=== PATIENT | female | born 1945 | race Caucasian/White ===

== ENCOUNTER 2019-12-31 01:26 | Outpatient (CLI) | payer MEDICARE, OTHER, SELFPAY ==
[2019-12-31 17:41] LABS: SARS-CoV-2 RNA PCR Negative
== END 2019-12-31 01:27 | disposition home or self-care (01) ==
LOC: ANHCOVIDDT 01:26
PROVIDERS: PCP Family Medicine; Visit Provider Internal Medicine Gastroenterology
DX: Z01.812 Encounter for preprocedural laboratory examination (principal); Z20.828 Contact with and (suspected) exposure to other viral communicable diseases
CPT/HCPCS: 87635; C9803; U0003

== ENCOUNTER 2020-01-02 02:12 | Day surgery (SDC) | payer MEDICARE, OTHER, SELFPAY ==
[2019-12-26 10:45] VITALS: BMI 34.2
[2020-01-02 09:12] VITALS: BP 144/75; PULSE 74; RESP 20; TEMP 36.2; O2SAT 97; BMI 35.1
--- NOTE | 2020-01-02 09:21 | WPDANESEPPF ---
Anes - Initial Pre Proc Eval Procedure: Operation Date: 01/02/20 09:30 Proposed Procedures p Screening Colonoscopy - Guerrreo Mcintosh MD Date/Time: 01/02/20 09:21 Surgeon: Guerrero Mcintosh MD Pre Op Diagnosis: Fam Hx Colon Ca Patient Data Age: 74 Gender: F Height: 5 ft 2 in Weight: 87.1 kg Last Vital Signs Temp 97.2 F L 01/02/20 09:12 Pulse 74 01/02/20 09:12 Resp 20 01/02/20 09:12 BP 144/75 H 01/02/20 09:12 Pulse Ox 97 01/02/20 09:12 Allergies Allergy/AdvReac Type Severity Reaction Status Date / Time No Known Allergies Allergy Verified 12/26/19 10:42 Home Medications Medication Instructions Recorded Confirmed Type alprazolam 0.5 mg PO DAILY PRN 12/26/19 12/26/19 History diltiazem HCl [Cartia XT] 240 mg PO DAILY 12/26/19 12/26/19 History gabapentin 200 mg PO DAILY 12/26/19 12/26/19 History hydrocodone-acetaminophen 1 tablet PO PRN 12/26/19 History triamterene-hydrochlorothiazid 1 cap PO DAILY 12/26/19 12/26/19 History Patient hx anesthesia problems: none Family hx anesthesia problems: none PMFSH Past Medical History Medical History (Updated 01/02/20 @ 09:20 by Justin Coleman MD) Anxiety Hypertension Family History Family History (Updated 01/24/18 @ 08:51 by DOCTOR UNKNOWN) Father Family history of arthritis Carcinoma of colon Mother Family history of malignant neoplasm of bone Family history of malignant neoplasm of breast in first degree relative Other Family history of malignant neoplasm Social History Social History Smoking status: Never smoker Alcohol intake: current Living arrangements: with family Spiritual care concerns: No Anes - Eval Final PreProcedure Day of Procedure 01/02/20 09:21 Patient weight: obese Heart: regular rate and rhythm Lungs: clear to auscultation Airway: Mallampati scale class III Neurological: alert and oriented Last oral intake: >/= 8 hours ASA classification: III Emergent: no Anesthetic plan: proceed Anesthesia type and monitoring: general GIVS and standard monitoring Informed Consent: The patient's anesthetic plan and its attendant risks and benefits were discussed with the patient/family/POA. Questions were solicited and answers provided to the satisfaction of the patient/family/POA.
[2020-01-02] MEDS: LACTATED RINGERS 1,000 ML 150 ML IV CONT (09:27)
--- NOTE | 2020-01-02 09:59 | P.CONGI_ITS ---
Assessment and Plan Assessment and plan (1) Family history of colon cancer in father: Code(s): Z80.0 - Family history of malignant neoplasm of digestive organs Status: Acute Assessment and Plan: Patient has a family history of colon cancer in her father for this reason screening colonoscopy is recommended at 5 year intervals. High-fiber diet may help is a stool softener given her discomfort relieved with bowel movements. Consider probiotic agent be to assist with excess flatus. Gas-X is an alternative as well. GI Consult Note Consult date/time: 01/02/20 09:59 HPI: Saima Lau is a 74 year old female Seen in evaluation at the request of Dr. Marcus Patient presents for screening colonoscopy. Family history is significant patient's father had colon cancer. Patient's last colonoscopy was Five years ago. At that time she was noted to have a very tortuous colon. Idania ent currently complains of excess flatus. She complains of occasional anal pressure when sitting. She denies any blood in his stools. Her weight has remained stable. Her bowel habits are relatively normal. She occasionally Gets pain relieved Review of Systems Review of Systems: All systems reviewed & are unremarkable except as noted in HPI and below PMFSH Past Medical History Medical History Anxiety Hypertension Family History Family History (Updated 01/24/18 @ 08:51 by DOCTOR UNKNOWN) Father Family history of arthritis Carcinoma of colon Mother Family history of malignant neoplasm of bone Family history of malignant neoplasm of breast in first degree relative Other Family history of malignant neoplasm Social History Social History Smoking status: Never smoker Alcohol intake: current Living arrangements: with family Spiritual care concerns: No Meds Home Medications and Allergies Home Medications Medication Instructions Recorded Confirmed Type alprazolam 0.5 mg PO DAILY PRN 12/26/19 12/26/19 History diltiazem HCl [Cartia XT] 240 mg PO DAILY 12/26/19 12/26/19 History gabapentin 200 mg PO DAILY 12/26/19 12/26/19 History hydrocodone-acetaminophen 1 tablet PO PRN 12/26/19 History triamterene-hydrochlorothiazid 1 cap PO DAILY 12/26/19 12/26/19 History Allergies Allergy/AdvReac Type Severity Reaction Status Date / Time No Known Allergies Allergy Verified 12/26/19 10:42 Vital Signs Vital Signs - 24 hr 01/02/20 09:12 Temperature 97.2 F L Pulse Rate 74 Respiratory Rate 20 Blood Pressure 144/75 H Pulse Oximetry 97 Exam Narrative: Exam Narrative: Physical exam reveals patient to be alert. Vital signs stable. HEENT exam unremarkable. Lungs are clear to auscultation and percussion. Heart is without murmur or extra sounds. Abdominal exam bowel sounds are present soft nontender with no organomegaly. Digital external rectal exam is normal.
[2020-01-02 10:34] VITALS: BP 128/77; PULSE 97; RESP 21; O2SAT 98
--- NOTE | 2020-01-02 10:39 | ECG_ITS ---
Measurements Intervals [place] Rate: 66 P: [place]: 0 QRS: 0 QRSD: 105 T: 41 QT: 412 QTc: 433 Interpretive Statements ATRIAL FIBRILLATION BASELINE ARTIFACT- I, II, III, AVR, AVL, AVF, V1 ABNORMAL ECG Electronically Signed On 01-02-2020 12:02:41 CDT by Rajesh Austin D.O.
[2020-01-02 10:44] VITALS: BP 134/63; PULSE 81; RESP 18; O2SAT 98
--- NOTE | 2020-01-02 10:44 | SUR.PHASEII ---
NEW ONSET OF AFIB PER P[employer] [facility]. DR. DE LA ROSA AWARE AND 12LEAD ORDERED.
--- NOTE | 2020-01-02 10:52 | SUR.PHASEII ---
1053 -MARLA STEWART IN WITH PATIENT TO DO 12LEAD EKG.
[2020-01-02 10:54] VITALS: BP 130/64; PULSE 74; RESP 22; O2SAT 98
[2020-01-02 11:04] VITALS: BP 124/58; PULSE 68; RESP 20; O2SAT 98
--- NOTE | 2020-01-02 11:04 | SUR.PHASEII ---
1104 -CARDIOLOGY CALLED AND WILL COME VISIT WITH PATIENT
[2020-01-02 11:14] VITALS: BP 125/67; PULSE 66; RESP 18; O2SAT 98
--- NOTE | 2020-01-02 12:18 | SUR.PHASEII ---
1129 - [id number] -DR. HARRIS FROM CARDIOLOGY IN WITH PATIENT. PER DR. HARRIS NO NEW LAB NEEDED AT THIS TIME, PATIENT STATES THAT SHE HAD SOME DRAWN RECENTLY THROUGH PRIMARY, DR. CITLALI MEJIA.
--- NOTE | 2020-01-02 12:47 | PM.CNCAR ---
Assessment and Plan Assessment and plan (1) Atrial fibrillation: Code(s): I48.91 - Unspecified atrial fibrillation Status: Acute Assessment and Plan: reported remote history of transient atrial fibrillation associated with procedure/anesthesia. Patient reported to be in sinus rhythm at presentation developed atrial fibrillation with controlled ventricular response during colonoscopy. She remains in AFib, heart rate controlled, asymptomatic. We discussed embolic stroke risk with atrial fibrillation, CHADS2 Vasc score 3 (age, female sex, HTN) and recommendation for systemic anticoagulation. We discussed aspirin versus anticoagulation options including bleeding versus embolic stroke risk reduction. We discussed rate versus rhythm control. Patient is currently asymptomatic with controlled heart rate. Will evaluated outpatient with recommendations to follow. Discussed options including medications, electrical cardioversion she is to restore sinus rhythm. Patient comfortable continuing with current medications with Follow up as an outpatient. Continue diltiazem at present dose. Review most recent laboratory studies. Would recommend initiation of Xarelto 20 mg at bedtime depending on renal function. Will review labs. She is not to start anticoagulation for least 2 days post polypectomy or per GI recommendations. Monitor for bleeding. Counseled on symptoms she may experience including fatigue, decreased activity tolerance, shortness breath, palpitations, dizziness or lightheadedness. She does not endorse any of these at this time or in the recent past. Outpatient 2D echocardiogram. Discuss outpatient desk monitor depending upon management decisions and associated symptoms. All questions answered to her and her 's satisfaction. They both verbalized understanding and agreed with plan of care. Counseled on potential contribution from sleep apnea although she does not endorse clear symptoms. She admits to poor sleep, frequent awakenings but feels this may be related more to knee pain. She will monitor symptoms and will discuss further as an outpatient. Patient stable for discharge home to follow up in our office in the next 2 weeks. Further recommendation depending on patient's clinical course and response to therapy. (2) Hypertension: Code(s): I10 - Essential (primary) hypertension Status: Inactive Assessment and Plan: Controlled, no acute issues. Continue home medical therapy. History of Present Illness History of Present Illness Consult date/time: Date of service: 01/02/20 12:47 This is a cardiology consultation at the request of Dr. Coleman of Anesthesiology for our opinion regarding atrial fibrillation seen in the GI lab postprocedure room.. Requesting physician: Justin Coleman MD Consult reason: atrial fibrillation Reason For Visit: Fam Hx Colon Ca Narrative: Patient is a pleasant 74-year-old female with a history of hypertension, osteoarthritis, and reported history of paroxysmal atrial fibrillation remotely presents for routine outpatient colonoscopy. She denies bleeding or recent concerns. She denies history of coronary artery disease, myocardial infarction, CHF, stroke, bleeding complications, DVT and/or PE. She states she was told over 10 years ago after a surgical procedure she had an episode of atrial fibrillation which apparently self limited. No directed therapy was administered per her recollection and she never followed with a seismic survey assistant in this regard. He does states she had a false-positive stress test many years ago for which she had a left heart catheterization performed and reports no issues found. She has no prior known diagnosis of obstructive sleep apnea. She denies falls. Were called to see this patient as she reportedly presented in normal sinus rhythm then developed atrial fibrillation with controlled ventricular response during colonoscopy wh
== END 2020-01-02 12:20 | disposition home or self-care (01) ==
PROVIDERS: PCP Family Medicine; Visit Provider Internal Medicine Gastroenterology
PROC: 0DJD8ZZ Inspection of Lower Intestinal Tract, Via Natural or Artificial Opening Endoscopic (ICD-10-PCS; CPT 45378; principal; 2020-01-02 09:30)
DX: Z12.11 Encounter for screening for malignant neoplasm of colon (principal); D12.2 Benign neoplasm of ascending colon; D12.4 Benign neoplasm of descending colon; K57.30 Diverticulosis of large intestine without perforation or abscess without bleeding; K64.8 Other hemorrhoids; Z80.0 Family history of malignant neoplasm of digestive organs; I48.91 Unspecified atrial fibrillation; I10 Essential (primary) hypertension; F41.9 Anxiety disorder, unspecified; E66.9 Obesity, unspecified; Z68.35 Body mass index [BMI] 35.0-35.9, adult; S62.631B Displaced fracture of distal phalanx of left index finger, initial encounter for open fracture
CPT/HCPCS: 45385; 88305; 93005; J2704; J7120

== ENCOUNTER 2020-03-31 10:17 | Emergency (ER) | payer MEDICARE, OTHER, SELFPAY ==
--- NOTE | 2020-03-31 10:20 | ED.URI ---
HPI - URI/Sore Throat General Chief Complaint: Upper Respiratory Infection Stated Complaint: Cough Source: patient and RN notes reviewed Mode of arrival: ambulatory Limitations: no limitations History of Present Illness HPI Narrative: 74-year-old female presents with concern for continued cough after recovering from Covid. Reports in February 26 she was positive for Covid, reports she was sick for approximately 3 weeks with Covid symptoms such as body aches, cough, loss of sense of taste and smell, fever, nasal congestion. Reports she got a Z-Ruddy from her doctor, completed it 1 week ago, and symptoms persist. She denies fever reports occasional feeling of spasming when she coughs. Reports she has been taking [id number] cold remedies with occasional relief. MD elicited complaint: cough Related Data Home Medications Medication Instructions Recorded Confirmed alprazolam 0.5 mg PO DAILY PRN 12/26/19 12/26/19 diltiazem HCl [Cartia XT] 240 mg PO DAILY 12/26/19 12/26/19 gabapentin 200 mg PO DAILY 12/26/19 12/26/19 hydrocodone-acetaminophen 1 tablet PO PRN 12/26/19 triamterene-hydrochlorothiazid 1 cap PO DAILY 12/26/19 12/26/19 Allergies Allergy/AdvReac Type Severity Reaction Status Date / Time No Known Allergies Allergy Verified 12/26/19 10:42 Review of Systems Review of Systems: Narrative: CONSTITUTIONAL: Denies malaise, chills, sweats, or fever. EYES: Denies visual changes, redness, or discharge. ENT: Denies rhinorrhea, congestion, sinus pain, otalgia and sore throat. CARDIOVASCULAR: Denies chest pain, palpitations, or edema. RESPIRATORY: Reports cough, occasional mild dyspnea. GASTROINTESTINAL: Denies abdominal pain, nausea, vomiting, diarrhea SKIN: Denies rash or itching. MUSCULOSKELETAL: Denies myalgia. NEUROLOGIC: Denies headache. All systems reviewed & are unremarkable except as noted in HPI and below PMFSH Past Medical History Medical History (Updated 03/31/20 @ 10:49 by Marlys Will NP) Anxiety Hypertension Family History Family History Father Family history of arthritis Carcinoma of colon Mother Family history of malignant neoplasm of bone Family history of malignant neoplasm of breast in first degree relative Other Family history of malignant neoplasm Social History Social History Smoking status: Never smoker Alcohol intake: current Spiritual care concerns: No Comments At time of signature, agree with nursing past medical, surgical, social and family history. There is no relevant family history pertinent to the presenting complaint Exam Narrative: Exam Narrative: GENERAL: Well-appearing, well-nourished, and in no acute distress. HEAD: Normocephalic EYES: PERRLA, conjunctivae clear ENT: Nares clear, turbinates pink, no discharge. Mucous membranes moist. TM pearly redman with dull light reflex bilaterally; no tragal tenderness. Oropharynx not erythematous without lesions. Tonsils not enlarged and without exudate, no drooling, no hoarseness, no trismus, uvula midline. NECK: Supple. No lymphadenopathy CHEST: Clear to auscultation, breath sounds equal. No wheezing, rhonchi, rales, or stridor. No respiratory distress, speaks in full sentences. HEART: Regular rate and rhythm. No murmur heard. SKIN: Warm, dry, no rash. NEURO: Alert and oriented x3. PSYCH: Normal mood and affect Course Course Emergency Course: Patient is aware of diagnosis, understands and agrees to treatment plan. Anticipatory guidance given. Patient agrees to follow-up as directed and is aware of reasons to seek care at the emergency department. Portions of this record may have been created with voice recognition software Vital Signs Vital signs: Vital Signs Temperature 99.0 F 03/31/20 10:39 Pulse Rate 64 03/31/20 10:39 Respiratory Rate 16 03/31/20 10:39 Blood Pressure 143/80 H 03/31/20 1
[2020-03-31 10:39] VITALS: BP 143/80; PULSE 64; RESP 16; TEMP 37.2; O2SAT 98
[2020-03-31 10:40] VITALS: BP 143/80; PULSE 64; RESP 16; TEMP 37.2; O2SAT 98
== END 2020-03-31 10:53 | disposition home or self-care (01) ==
PROVIDERS: Emergency Provider Nurse Practitioner
DX: J40 Bronchitis, not specified as acute or chronic (principal); F41.9 Anxiety disorder, unspecified; I10 Essential (primary) hypertension; Z86.16 Personal history of COVID-19
CPT/HCPCS: 99213; G0463

== ENCOUNTER 2021-03-03 12:20 | Outpatient (CLI) | payer MEDICARE, OTHER, SELFPAY ==
--- NOTE | ~2021-03-03 | XR_ITS ---
XR chest 2V DATE: 03/03/2021 12:41 INDICATION: Acute lower respiratory infection. Cough. TECHNIQUE: 2 views COMPARISON: 02/01/2008 two-view chest FINDINGS: There is cardiomegaly. No hilar or mediastinal enlargement. There is chronic mild elevation of the right leaf of the diaphragm. No pulmonary infiltrate or consolidation, pleural effusion or pulmonary vascular congestion or pneumo thorax is detected. Surgical clips overlie the right upper quadrant, likely due to cholecystectomy. Gastric band device i s noted. Left glenohumeral joint replacement. There is mild to moderate dextroscoliosis and degenerative spurring of the thoracic and lumbar spine. Diffuse osteopenia. IMPRESSION: No active pulmonary disease Cardiomegaly Gastric band device Status post cholecystectomy Glenohumeral joint replacement Osteopenia DEXA scoliosis and degenerative spurring of the thoracic and lumbar spine Reviewed, dictated and finalized at location B. 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
== END 2021-03-03 12:21 | disposition home or self-care (01) ==
LOC: ANHIMG 12:26
PROVIDERS: PCP Family Medicine; Visit Provider Family Medicine
DX: J22 Unspecified acute lower respiratory infection (principal); I51.7 Cardiomegaly; Z98.84 Bariatric surgery status; Z90.49 Acquired absence of other specified parts of digestive tract; Z96.642 Presence of left artificial hip joint; M85.89 Other specified disorders of bone density and structure, multiple sites; M41.84 Other forms of scoliosis, thoracic region; M46.06 Spinal enthesopathy, lumbar region
CPT/HCPCS: 71046

== ENCOUNTER 2021-06-04 10:28 | Emergency (ER) | payer MEDICARE, SELFPAY ==
[2021-06-04] VITALS (8 sets, daily range): BP systolic 107–139; BP diastolic 56–89; PULSE 67–100; RESP 15–20; TEMP 36.6; O2SAT 98–100
[2021-06-04 11:12] LABS: Basophils Percent Auto 0.2 % (0.2-1.2); Eosinophils Percent Auto 0.2 % (0-4.4); Hematocrit 52.3 % (37.0-47.0); Immature Granulocyte Absolute 0.03 K/mm3 (0.00-0.031); Immature Granulocyte Percent A 0.3 % (0-0.5); Lymphocytes Absolute Auto 1.25 K/mm3 (0.9-3.2); Lymphocytes Percent Auto 13.4 % (18.3-44.2); Mean Corpuscular HGB Conc 34.4 g/dl (32-36); Mean Corpuscular Hemoglobin 32.9 pg (26-34); Mean Corpuscular Volume 95.6 fl (80-100); Mean Platelet Volume 9.5 fl (7.4-10.4); Monocytes Absolute Auto 0.9 K/mm3 (0.1-0.6); Monocytes Percent Auto 9.6 % (2.6-8.5); Neutrophils Absolute Auto 7.1 K/mm3 (1.3-6.7); Neutrophils Percent Auto 76.3 % (45.5-73.1); Platelet Count Result 235 k/mm3 (150-375); Red Blood Count 5.47 M/mm3 (4.2-5.4); Red Cell Distribution Width 13.9 % (11.5-14.5); White Blood Count 9.3 K/mm3 (4.5-10.0)
[2021-06-04 11:20] LABS: Alanine Aminotransferase 41 U/L (4-35); Albumin Level 4.7 g/dL (3.5-5.1); Alkaline Phosphatase 73 U/L (38-126); Anion Gap 16 mmol/L (8-16); Aspartate Amino Transferase 52 U/L (14-36); Bilirubin,Total 0.7 mg/dL (0.2-1.3); Blood Urea Nitrogen 24 mg/dL (7-17); Calcium 9.2 mg/dL (8.4-10.2); Carbon Dioxide 20 mmol/L (22-30); Chloride 100 mmol/L (98-107); Estimated CRCL calculation 29 ml/min; Estimated Glomerular Filt Rate 34; Glucose 131 mg/dL (65-110); Lipase 48 U/L (23-300); Potassium 3.2 mmol/L (3.4-5.0); Sodium 136 mmol/L (137-145)
--- NOTE | 2021-06-04 13:00 | ED.NAVMDI ---
HPI - Nausea/Vomiting/Diarrhea General Chief complaint: Nausea/Vomiting/Diarrhea Stated complaint: diarrhea for three days Time Seen by Provider: 06/04/21 11:30 Source: patient and family Mode of arrival: ambulatory Limitations: no limitations History of Present Illness HPI Narrative: 75-year-old with a history of hypertension, A. fib, arthritis, anxiety here with a complaint complaints of diarrhea for last few days. Patient states that she feels lightheaded and dizzy has occasional abdominal cramps. She states her stool is green and watery in nature. No history of fever or chills. She states that she was on 2 rounds of oral antibiotic for urinary tract infection. MD elicited complaint: diarrhea and abdominal pain Onset (ago): day(s) (3) Description of diarrhea: mucus, watery and other (Green in color) Associated nausea: No Location of pain: diffuse Pain consistency: intermittent Quality: cramping Exacerbating factors: bowel movement Relieving factors: none Context: recent antibiotic use Associated symptoms: denies other symptoms Related Data Home Medications Medication Instructions Recorded Confirmed diltiazem HCl [Cartia XT] 240 mg PO DAILY 12/26/19 05/11/21 gabapentin 400 mg capsule 400 mg PO BID cap 03/02/21 05/11/21 diltiazem HCl PO 06/04/21 ergocalciferol (vitamin D2) 06/04/21 gabapentin 06/04/21 triamterene-hydrochlorothiazid cap 06/04/21 valacyclovir 06/04/21 warfarin 06/04/21 Allergies Allergy/AdvReac Type Severity Reaction Status Date / Time No Known Allergies Allergy Verified 05/11/21 10:16 [facility] Past Medical History Medical History Anxiety Arthralgia Elevated TSH Fatigue Hypertension Knee pain, bilateral Low back pain Screening cholesterol level Surgical History Surgical History History of ankle surgery (~2017) left ankle - Dr. Aguillon - [facility] History of arthroscopic knee surgery (~2016) left knee - Dr. Guillaume - [facility] [place] History of arthroscopic knee surgery (~2009) right knee - Dr. Kapoor History of hysterectomy (~2002) [facility] History of shoulder replacement (~2009) left shoulder - Dr. Chelsea Coreas Family History Family History Father Family history of arthritis Carcinoma of colon Mother Family history of malignant neoplasm of bone Family history of malignant neoplasm of breast in first degree relative Other Family history of malignant neoplasm Social History Social History Second hand tobacco smoke exposure: No Alcohol intake: current Substance use: never Substance use type: does not use Gender identity (if verbalized by the patient): Female Sexual Orientation (if Verbalized by the Patient): Straight or Heterosexual Spiritual care concerns: No Exam Narrative: GENERAL: Well-appearing, well-nourished, and in no acute distress. HEAD: Normocephalic, atraumatic. EYES: PERRLA and EOMI. ENT: Nares clear dry oral mucosa. NECK: Supple. CHEST: Clear to auscultation. No respiratory distress. HEART: Regular rate and rhythm. No murmur heard. Normal peripheral pulses. ABDOMEN: Soft, nontender, nondistended, normal active bowel sounds. EXTREMITIES: Normal range of motion. No edema. SKIN: Warm, dry, no rash. NEURO: No focal deficits. Alert and oriented x3. PSYCH: Normal mood and affect. Course Course Emergency Course: Physical examination she had dry oral mucosa , I did give her 2 L of normal saline which started feeling better send her stool for C. difficile which was negative discussed the lab work with the patient and family. She feels much better. Will discharge home on Flagyl. Vital Signs Vital signs: Vital Signs Temperature 36.6 C 06/04/21 10:36 Pulse Rate 90 06/04/21 10:36 Respiratory Rate 18 0
[2021-06-04] MEDS: SODIUM CHLORIDE 0.9% IV 1,000 ML 999 ML IV CONT (13:05)
[2021-06-04] MEDS: SODIUM CHLORIDE 0.9% IV 1,000 ML 150 ML IV CONT (13:05)
[2021-06-04 16:09] LABS: Toxigenic C. Diff NEGATIVE (NEGATIVE)
== END 2021-06-04 16:53 | disposition home or self-care (01) ==
PROVIDERS: Emergency Provider Family Medicine; PCP Family Medicine
DX: K52.9 Noninfective gastroenteritis and colitis, unspecified (principal); E86.0 Dehydration; I10 Essential (primary) hypertension; I48.91 Unspecified atrial fibrillation; M19.90 Unspecified osteoarthritis, unspecified site; Z79.01 Long term (current) use of anticoagulants
CPT/HCPCS: 36415; 80053; 83690; 85025; 87045; 87427; 87493; 89055; 96360; 96361; 99283; 99284; J7030

== ENCOUNTER 2021-12-29 12:50 | Outpatient (CLI) | payer MEDICARE, SELFPAY ==
--- NOTE | ~2021-12-29 | XR_ITS ---
EXAMINATION: XR chest 2V DATE: 12/29/2021 13:17 INDICATION: Essential hypertension TECHNIQUE: PA and lateral views of the chest are obtained. COMPARISON: 03/03/2021 FINDINGS: The lungs are free of acute opacities. No pleural effusion or pneumothorax. The cardiomedia stinal silhouette is normal. There is mild thoracic spondylosis. There are changes of left total shou lder arthroplasty. Changes of gastric lap band surgery are also noted. IMPRESSION: 1. No acute cardiopulmonary abnormality. Reviewed, dictated and finalized at location A.
--- NOTE | 2021-12-29 13:25 | ECG_ITS ---
Measurements Intervals [place] Rate: 52 P: 30 [place]: 183 QRS: -10 QRSD: 102 T: 38 QT: 425 QTc: 397 Interpretive Statements SINUS BRADYCARDIA ABNORMAL ECG COMPARED TO ECG 01/02/2020 11:18:45 SINUS BRADYCARDIA NOW PRESENT Electronically Signed On 12-29-2021 14:14:25 CDT by Jagjit Pompa M.D.
== END 2021-12-29 12:51 | disposition home or self-care (01) ==
PROVIDERS: PCP Family Medicine; Visit Provider Family Medicine
DX: I48.0 Paroxysmal atrial fibrillation (principal); I10 Essential (primary) hypertension; R94.31 Abnormal electrocardiogram [ECG] [EKG]; R00.1 Bradycardia, unspecified
CPT/HCPCS: 71046; 93005

== ENCOUNTER 2023-03-21 07:56 | Outpatient (CLI) | payer MEDICARE, SELFPAY ==
--- NOTE | ~2023-03-21 | XR_ITS ---
EXAMINATION: XR UGI w barium swallow DATE: 03/21/2023 08:49 INDICATION: Dysphagia. TECHNIQUE: The patient drank thick barium, gas-producing crystals, and thin barium. Fluoroscopy of th e esophagus, stomach, and proximal small bowel was performed. Fluoroscopy exposure time was 0.7 minut es. The total number of images was 512. Total dose-area product was 2.386 Gy-cm^2. COMPARISON: None. FINDINGS: There is no mass or stricture of the esophagus. Esophageal motility is normal. There is no hiatal hernia. There was no gastroesophageal reflux with provocative maneuvers. There is a Lap band w ith Phi angle of 53 degrees. The stomach and proximal small bowel show normal folding patterns. IMPRESSION: 1. Normal upper gastrointestinal series. Lap band in expected position. Reviewed, dictated and finalized at location A. 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
== END 2023-03-21 07:57 | disposition home or self-care (01) ==
PROVIDERS: PCP Family Medicine; Visit Provider Family Medicine
DX: R13.10 Dysphagia, unspecified (principal); Z98.84 Bariatric surgery status
CPT/HCPCS: 74240

== ENCOUNTER 2023-04-12 00:22 | Day surgery (SDC) | payer MEDICARE, SELFPAY ==
[2023-04-04 10:00] VITALS: BMI 31.1
--- NOTE | 2023-04-08 12:47 | SUR.PREOP ---
Patient called regarding upcoming procedure. Reviewed preop instructions, appointment times, and procedure prep.
[2023-04-12 12:11] VITALS: BP 168/75; PULSE 60; RESP 16; TEMP 35.9; O2SAT 99
[2023-04-12] MEDS: LACTATED RINGERS 1,000 ML 150 ML IV CONT (12:20)
--- NOTE | 2023-04-12 12:41 | WPDANESEPPF ---
Anes - Initial Pre Proc Eval Procedure: Operation Date: 04/12/23 13:30 Proposed Procedures p Esophagogastroduodenoscopy - Garland Celis MD Date/Time: 04/12/23 12:41 Surgeon: Garland Celis MD Pre Op Diagnosis: Dysphagia,other chest pain,vomiting Patient Data Age: 77 Gender: F Height: 1.57 m Weight: 79.3 kg Last Vital Signs Temp 96.6 F L 04/12/23 12:11 Pulse 60 04/12/23 12:11 Resp 16 04/12/23 12:11 BP 168/75 H 04/12/23 12:11 Pulse Ox 99 04/12/23 12:11 O2 Del Method Room Air 04/12/23 12:11 Allergies Allergy/AdvReac Type Severity Reaction Status Date / Time No Known Allergies Allergy Verified 04/12/23 12:10 Home Medications Medication Instructions Recorded Confirmed Type diltiazem HCl 240 mg 240 mg PO DAILY 12/26/19 04/04/23 History capsule,extended release 24 hr (Cartia XT) buspirone 15 mg tablet 15 mg PO BID PRN anxiety #40 tabs 03/24/21 04/04/23 Rx triamterene 37.5 1 cap PO DAILY 06/04/21 04/04/23 History mg-hydrochlorothiazide 25 mg capsule gabapentin 400 mg capsule 400 mg PO TID 06/16/21 04/04/23 History apixaban 5 mg tablet (Eliquis) 5 mg PO BID #60 tabs 09/22/21 04/12/23 Rx oxybutynin chloride 10 mg 10 mg PO DAILY 01/25/22 04/04/23 History tablet,extended release 24 hr albuterol sulfate 90 mcg/actuation 2 puff inhalation QID PRN 02/01/23 04/04/23 Rx aerosol inhaler shortness of breath or wheezing #8.5 grams potassium chloride 10 mEq 10 meq PO .TWICE WEEKLY #30 caps 02/02/23 04/04/23 Rx capsule,extended release ergocalciferol (vitamin D2) 1,250 1,250 mcg PO WEEKLY #12 caps 02/09/23 04/04/23 Rx mcg (50,000 unit) capsule ibandronate 150 mg tablet 150 mg PO MONTHLY #1 tablet 02/10/23 04/04/23 Rx pantoprazole 40 mg tablet,delayed 40 mg PO BID #60 tabs 03/31/23 04/04/23 Rx release hyoscyamine sulfate 0.125 mg 0.125 mg sublingual Q6H PRN other 04/04/23 04/04/23 History sublingual tablet (Levsin/SL) valacyclovir 1 gram tablet 2,000 mg PO Q12H PRN other 04/04/23 04/04/23 History (Valtrex) Patient hx anesthesia problems: none Family hx anesthesia problems: none Results Review: All pre-operative results and documents have been reviewed as part of the pre-operative evaluation. [facility] Past Medical History Medical History (Updated 03/31/23 @ 12:54 by Norma Clarke, KAREY) Anxiety Arthralgia Atypical chest pain Chronic renal insufficiency, stage III (moderate) Chronic vomiting Elevated TSH Fatigue Hx of adenomatous colonic polyps Hypertension Knee pain, bilateral Low back pain Odynophagia Screening cholesterol level Vitamin D deficiency Vulvodynia Surgical History Surgical History History of ankle surgery (~2018) left ankle - Dr. Aguillon - [facility] History of arthroscopic knee surgery (~2016) left knee - Dr. Guillaume - [facility] History of arthroscopic knee surgery (~2009) right knee - Dr. Kapoor [place] of [place] [facility] [place] shoulder replacement (~2009) left shoulder - Dr. Chelsea Coreas Hx of laparoscopic gastric banding Family History Family History Father Family history of arthritis Carcinoma of colon Mother Family history of malignant neoplasm of bone Family history of malignant neoplasm of breast in first degree relative Other Family history of malignant neoplasm Social History Social History Smoking status: Never smoker Second hand tobacco smoke exposure: No Alcohol intake: current Alcohol use details: social Substance use: never Substance use type: does not use Lack of Transportation: No Lack of Food: Never True Current Housing: I Have Housing Concerned About Future Housing: No Difficulty Paying Gas/Electric Bills: No Difficulty Paying for Meds: No
--- NOTE | 2023-04-12 13:21 | WPDHPUPDATE1 ---
History and Physical Update Update Date/Time: 04/12/23 13:21 History and Physical has been reviewed, including an updated exam of the patient. There are NO changes in the patient's condition. Risks, benefits, and alternatives have been discussed and questions answered. Patient agrees to proceed with procedure.
[2023-04-12 13:39] VITALS: BP 134/91; PULSE 51; RESP 16; O2SAT 99
[2023-04-12 13:49] VITALS: BP 149/73; PULSE 50; RESP 18; O2SAT 96
[2023-04-12 13:59] VITALS: BP 150/78; PULSE 46; RESP 20; O2SAT 99
--- NOTE | 2023-04-12 14:27 | PC.NURSE ---
late entry 04/04/2023-- per Shruti Sapp RN Spoke with patient regarding medication Eliquis. Pt. verbalizes understanding that the last dose of Eliquis is to be taken on 04/09/2023 and the Endoscopist will instruct them when to restart after the procedure.
== END 2023-04-12 14:11 | disposition home or self-care (01) ==
PROVIDERS: PCP Family Medicine; Visit Provider Internal Medicine Gastroenterology
PROC: 0DJ08ZZ Inspection of Upper Intestinal Tract, Via Natural or Artificial Opening Endoscopic (ICD-10-PCS; CPT 43235; principal; 2023-04-12 13:30)
DX: K44.9 Diaphragmatic hernia without obstruction or gangrene (principal); I12.9 Hypertensive chronic kidney disease with stage 1 through stage 4 chronic kidney disease, or unspecified chronic kidney disease; N18.30 Chronic kidney disease, stage 3 unspecified; E55.9 Vitamin D deficiency, unspecified; F41.9 Anxiety disorder, unspecified; Z98.84 Bariatric surgery status; E66.9 Obesity, unspecified; Z68.32 Body mass index [BMI] 32.0-32.9, adult; Z79.01 Long term (current) use of anticoagulants; Z79.51 Long term (current) use of inhaled steroids
CPT/HCPCS: 43239; 88305; J2704; J7120

== ENCOUNTER 2023-09-13 12:45 | Outpatient (CLI) | payer MEDICARE, SELFPAY ==
--- NOTE | ~2023-09-13 | XR_ITS ---
XR shoulder RT min 2V Ordering provider: Zhanna Cordero MD History: . PAIN RT SHOULDER . Comparison: None. FINDINGS: BONES: No acute fracture or dislocation. JOINT SPACES: The acromioclavicular joint shows osteoarthritic changes.. The glenohumeral joint is no rmal. SOFT TISSUES: Normal. IMPRESSION: No acute osseous abnormality right shoulder. Reviewed, dictated and finalized at location A.
--- NOTE | ~2023-09-13 | XR_ITS ---
XR cervical spine 4-5V Ordering provider: Zhanna Cordero MD History: . M54.2 - Cervicalgia . Comparison: None. FINDINGS: VERTEBRAL BODIES: Normal height and alignment. No visible fracture or subluxation. The dens is intact . DISK SPACES: Narrowing of the disc C3-C3, C3-C4, C4-C5, and C5-C6. Narrowing of the level of T1-T2. M ultilevel facet joint disease and uncovertebral joint osteoarthritic changes. Narrowing of the lilia ian at multiple levels. PARASPINOUS SOFT TISSUES: No prevertebral soft tissue swelling. IMPRESSION: No acute osseous abnormality cervical spine. Multilevel degenerative disc disease. Reviewed, dictated and finalized at location A.
== END 2023-09-13 12:46 | disposition home or self-care (01) ==
PROVIDERS: PCP Family Medicine; Visit Provider Family Medicine
DX: M50.321 Other cervical disc degeneration at C4-C5 level (principal); M50.322 Other cervical disc degeneration at C5-C6 level; M50.323 Other cervical disc degeneration at C6-C7 level; M25.511 Pain in right shoulder
CPT/HCPCS: 72050; 73030

== ENCOUNTER 2024-03-16 12:17 | Outpatient (CLI) | payer MEDICARE, SELFPAY ==
[2024-03-16 13:38] LABS: Influenza A QL RT-PCR Negative (Negative); Influenza B QL RT-PCR Negative (Negative); RSV RNA, RT-PCR Positive (Negative); SARS-CoV-2 RNA PCR Positive (Negative)
== END 2024-03-16 12:18 | disposition home or self-care (01) ==
LOC: ANHLAB 12:28
PROVIDERS: PCP Family Medicine; Visit Provider Family Medicine
DX: U07.1 COVID-19 (principal); J06.9 Acute upper respiratory infection, unspecified
CPT/HCPCS: 87637

== ENCOUNTER 2024-04-30 12:02 | Emergency (ER) | payer MEDICARE, SELFPAY ==
--- NOTE | ~2024-04-30 | XR_ITS ---
EXAMINATION: XR thoracic spine 3V DATE: 04/30/2024 15:11 INDICATION: Thoracic back pain. TECHNIQUE: 3 views of thoracic spine on 4 radiographs were obtained. COMPARISON: Chest 2 views 12/29/2021 FINDINGS: There is 11 degrees levoscoliosis of upper thoracic spine. There is 10 degrees dextro scoli osis of lower thoracic spine. Vertebral body heights are normal. Intervertebral disc heights are norm al. There are endplate osteophytes at multiple levels. Surgical clips in the right upper quadrant are likely from cholecystectomy. There is a lap band of the proximal stomach. IMPRESSION: 1. Mild thoracic spondylosis. 2. Scoliosis. Reviewed, dictated and finalized at location A. N RESOURCES OFFICER
--- NOTE | ~2024-04-30 | XR_ITS ---
EXAMINATION: XR lumbar spine 2-3V DATE: 04/30/2024 15:11 INDICATION: Back pain. TECHNIQUE: 3 views of lumbar spine were obtained. COMPARISON: None. FINDINGS: There is 9 degrees levoscoliosis of lumbar spine. There is 3 mm anterolisthesis of L4 on L5 . Vertebral body heights are normal. There is severely decreased disc height at L2-L3, mildly decreas ed disc height at L3-L4 and L4-L5, and severely decreased disc height at L5-S1. There is multilevel s evere facet joint osteoarthritis. There is a lap band of the proximal stomach. Surgical clips in the right upper quadrant are likely from cholecystectomy. IMPRESSION: 1. Severe lumbar spondylosis. Reviewed, dictated and finalized at location A. ASSEMBLER
[2024-04-30 12:12] VITALS: BP 163/66; PULSE 61; RESP 15; TEMP 36.5; O2SAT 97
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
--- OUTSIDE RECORDS SUMMARY | 2024-04-30 14:39 | XMS_ITS | Encounter Summary ---
Author Organization [facility] Address [address] [place] [address] Care Team Providers Care Assembler Production Line Name Role Phone Jung Regalado MD Primary Care Provider + [phone] Encounter Details Date Type Department Care Team (Latest Contact Info) Description 09/03/[address] [facility] MICHELINE Gonzalez, Maged Pizano MD NO ADDRESS ON FILE SCREENING MAMM-MALIG NEOPL-HI RISK (Primary Dx) Social History Tobacco Use Types Packs/Day Years Used Date Smoking Tobacco: Never Assessed Comments Unknown Sex and Gender Information Value Date Recorded Sex Assigned at Not on file Legal Sex Female 4:20 AM REGIONAL COORDINATOR Gender Identity Not on file Sexual Orientation Not on file documented as of this encounter Plan of Treatment Not on file documented as of this encounter Visit Diagnoses Diagnosis Screening mammogram for high-risk patient- Primary documented in this encounter Care Teams Assembler Production Line Relationship Specialty Start Date End Date Jung Regalado MD [address] [place] [id number] PCP - General 01/20/09 documented as of this encounter
--- OUTSIDE RECORDS SUMMARY | 2024-04-30 14:39 | XMS_ITS | Encounter Summary ---
Author Organization [facility] Address 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
--- OUTSIDE RECORDS SUMMARY | 2024-04-30 14:39 | XMS_ITS | Encounter Summary ---
Author Organization [facility] Address 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
--- OUTSIDE RECORDS SUMMARY | 2024-04-30 14:39 | XMS_ITS | Encounter Summary ---
Author Organization [facility] Address [address] [place] [address] Care Team Providers Care Camp Head Counselor Name Role Phone Jung Regalado MD Primary Care Provider + [phone] Encounter Details Date Type Department Care Team (Latest Contact Info) Description 09/23/2003 Outpatient Historical HIS [facility] MICHELINE Gonzalez, Maged Pizano MD NO ADDRESS ON FILE SCREENING MAMM-MAILG NEOPL-OTHER (Primary Dx) Social History Tobacco Use Types Packs/Day Years Used Date Smoking Tobacco: Never Assessed Comments Unknown Sex and Gender Information Value Date Recorded Sex Assigned at Not on file Legal Sex Female 4:20 AM CENTRIFUGE OPERATOR Gender Identity Not on file Sexual Orientation Not on file documented as of this encounter Plan of Treatment Not on file documented as of this encounter Visit Diagnoses Diagnosis Other screening mammogram- Primary documented in this encounter Care Teams Camp Head Counselor Relationship Specialty Start Date End Date Jung Regalado MD [address] [place] [id number] PCP - General 01/20/09 documented as of this encounter
--- OUTSIDE RECORDS SUMMARY | 2024-04-30 14:39 | XMS_ITS | Clinical Summary ---
Author Organization [facility] Address [address] [place] [address] Care Team Providers Care Research Soil Scientist Name Role Phone Zhanna Cordero MD Primary Care Provider [phone] Allergies No known active allergies Medications ELIQUIS 5 MG tablet Take 1 tablet (5 mg total) by mouth 2 (two) times daily. Active Biotin 10 MG Cap Take 5,000 mcg by mouth daily. 4 Active Cholecalciferol (VITAMIN D) 125 MCG (5000 UT) Cap Take 125 mcg by mouth daily. 4 Active cyclobenzaprine (FLEXERIL) 10 MG tablet Take 1 tablet (10 mg total) by mouth 3 (three) times daily as needed. Active melatonin 3 MG tablet Take 1 tablet (3 mg total) by mouth nightly as needed. 4 Active potassium chloride CR (MICRO-K) 10 MEQ CR capsule Take 1 capsule (10 mEq total) by mouth twice a week. 3 Active vitamin D2, ergocalciferol, (DRISDOL) 1.25 mg capsule Take 1 capsule (1.25 mg total) by mouth once a week. 4 Active metroNIDAZOLE (METROGEL) 1 % gel APPLY TOPICALLY TO FACE DAILY 4 Active triamterene-hyd roCHLOROthiazid e (DYAZIDE) 37.5-25 MG capsule Take 1 capsule by mouth daily. 90 capsule 3 4 Active DILT-XR 240 MG 24 hr capsule Take 1 capsule (240 mg total) by mouth daily. 90 capsule 3 4 Active Active Problems No known active problems Encounters Date Type Department Care Team Description 04/18/2024 Misc Documentation [facility], [address] [address] Leonardo Cr MD Research 04/17/2024 Mis Documentation [facility], [address] [address] Leonardo Cr MD Research 02/15/2024 Mis Documentation [facility], [place] [address] [place] [address] Leonardo Cr MD Research 02/14/2024 Telephone [facility], [address] [address] Shelby Reyna, RN Research 02/03/2024 10:15 AM FLOOR CARE TECHNICIAN Office Visit [facility] [address] [address] Aram Garcia MD Atrial Fibrillation (consult); Hypertension 02/03/2024 Travel from Last 3 Months Social History Tobacco Use Types Packs/Day Years Used Date Smoking Tobacco: Never Assessed Comments Unknown Sex and Gender Information Value Date Recorded Sex Assigned at Not on file Legal Sex Female 10:22 PM FLOOR CARE TECHNICIAN Gender Identity Not on file Sexual Orientation Not on file Last Filed Vital Signs Vital Sign Reading Time Taken Comments Blood Pressure 124/72 02/03/2024 10:04 AM FLOOR CARE TECHNICIAN Pulse 71 02/03/2024 10:04 AM FLOOR CARE TECHNICIAN Temperature - - Respiratory Rate - - Oxygen Saturation 98% 02/03/2024 10:04 AM FLOOR CARE TECHNICIAN Inhaled Oxygen Concentration - - Weight 78.2 kg (172 lb 8 oz) 02/03/2024 10:04 AM FLOOR CARE TECHNICIAN Height 156.2 cm (5' 1.5 ) 02/03/2024 10:04 AM CS T Body Mass Index 32.07 02/03/2024 10:04 AM FLOOR CARE TECHNICIAN Plan of Treatment Upcoming Encounters Date Type Department Care Team (Late st Contact Info) Description 08/24/2024 11:15 AM CDT Office Visit [facility] [address] Aram Garcia MD [facility] [address] [place] [address] Health Maintenance Due Date Last Done Comments Hepatitis C 12/08/1963 DTaP, Tdap and Td Vaccines (1 - Tdap) 12/08/1966 Annual Medicare Wellness Visit 12/08/2012 Pneumococcal Vaccine: 65+ Years (1 of 1 - PCV) 12/08/2012 COVID-19 Vaccine ( season) 2023 03/19/2021, 05/21/2020, 04/23/2020 Zoster Vaccines Completed 02/23/2021, 12/02/2020 RSV Immunization or 60+ Years Completed 12/22/2022 Dexa Scan (General) Completed 07/19/2023, 07/19/2023, 07/15/2022, Additional history exists Influenza Adult Completed 12/07/2023, 12/12, 2021, Additional history exists Meningococcal B Vaccine Aged Out No l onger eligible based on patient's age to complete this topic Meningococcal Vaccine Aged Out No edgar amanda eligible based on patient's age to complete this topic RSV Immunizations Under 20 Months Aged Out No longer eligible based on patient's age to complete this topic Insurance Care Teams Research Soil Scientist Relationship Specialty Start Date End Date Zhanna Cordero MD [address] [place] [address] PCP - General FAMILY PRACTICE 11/25/23
--- OUTSIDE RECORDS SUMMARY | 2024-04-30 14:39 | XMS_ITS | Encounter Summary ---
Author Organization [employer] Address [address] [place] [address] Care Team Providers Care Newspaper Distributor Supervisor Name Role Phone Jung Regalado MD Primary Care Provider + [phone] Encounter Details Date Type Department Care Team (Late st Contact Info) Description 07/20/2004 Outpatient Historical [facility] Support Serv. ([facility]) [address] [place] [address] Kaleb Raphael MD [address] [place] [address] Social History Tobacco Use Types Packs/Day Years Used Date Smoking Tobacco: Never Assessed Comments Unknown Sex and Gender Information Value Date Recorded Sex Assigned at Not on file Legal Sex Female 4:20 AM BUSINESS ENGLISH INSTRUCTOR Gender Identity Not on file Sexual Orientation Not on file documented as of this encounter Plan of Treatment Not on file documented as of this encounter Visit Diagnoses Not on filedocumented in this encounter Care Teams Newspaper Distributor Supervisor Relationship Specialty Start Date End Date Jung Regalado MD [address] [place] [id number] PCP - General 01/20/09 documented as of this encounter
--- OUTSIDE RECORDS SUMMARY | 2024-04-30 14:39 | XMS_ITS | Encounter Summary ---
Author Organization [facility] Address [address] [place] [address] Care Team Providers Care Credit Union Manager Name Role Phone Jung Regalado MD Unavailable [phone] Zhanna Cordero MD Primary Care Provider [phone] Encounter Details Date Type Department Care Team (Late st Contact Info) Description 02/23/2023 Lab Requisition [facility] - DermPath Lab [address] [facility], [facility] [place] [address] Janis Santiago MD [address] [place] [address] Social History Tobacco Use Types Packs/Day Years Used Date Smoking Tobacco: Never Smokeless Tobacco: Never Alcohol Use Standard Drinks/Week Comments Yes 0 (1 standard drink = 0.6 oz pur e alcohol) socially AUDIT-C Answer Date Recorded Q1: How often do you have a drink containing alc ohol? 2-4 times a month 02/05/2022 Q2: How many drinks containi ng alcohol do you have on a typical day when you are drinking? 3 or 4 02/05/2022 Q3: How often do you have si x or more drinks on one occasion? Less than monthly 02/05/2022 Sex and Gender Information Value Date Recorded Sex Assigned at Not on file Gender Identity Not on file Sexual Orientation Not on file documented as of this encounter Plan of Treatment Not on file documented as of this encounter Procedures Procedure Name Priority Date/Time Associated Diagnosis Comments DERMATOPATHOLOGY Routine 02/23/2023 1:27 PM PSYCH RN documented in this encounter Results * DERMATOPATHOLOGY (02/23/2023 1:27 PM PSYCH RN) Case Report Dermatopathology Report Case: [id number] Authorizing Provider: Janis Santiago MD Collected: 02/23/2023 01:27 PM Ordering Location: [facility] DermPath Lab Received: 02/24/2023 07:38 AM Pathologist: Antonieta Zazueta MD Specimen: Skin, left middle finger 3 4:44 PM [facility] DERMATOPATHOLOGY LABORATORY Final Diagnosis Specimen A. SKIN, left middle finger: SQUAMOUS CELL CARCINOMA, WELL DIFFERENTIATED (C44.629) (see microscopic description) 3 4:44 PM [facility] DERMATOPATHOLOGY LABORATORY Clinical History R/O SCC 3 4:44 PM [facility] DERMATOPATHOLOGY LABORATORY Gross Description Specimen A: Received is one formalin filled container labeled with the patient's name and designated left middle finger. The specimen consists of a shave biopsy measuring 4x3x1 mm. Jar 0. 3 4:44 PM [facility] DERMATOPATHOLOGY LABORATORY Microscopic Description Specimen A. SKIN, left middle finger: Arising in the epidermis and extending into the dermis there are irregularly shaped aggregates of keratinocytes showing evidence of premature cornification. A focus in which basaloid nests are observed is negative for BerEp4 and is lost on deeper level sections. 3 4:44 PM [facility] DERMATOPATHOLOGY LABORATORY Disclaimer An external and internal positive and negative controls are appropriate for the histochemical, immunohistochemical and immunofluorescence stain(s) in this case (if any), except where stated explicitly. The performance characteristics of the stain(s) cited in this report were developed and its performance characteristic determined by the Dermatopathology Laboratory at [facility], directed by Dr. Nica Diaz. These tests need not be, and therefore are not, approved by the [place] Food and Drug Administration. The tests are used for clinical purposes. Billing Codes Specimen Charges Stain Charges 52009 1 74590 1 3 4:44 PM [facility] DERMATOPATHOLOGY LABORATORY Embedded Images 3 4:44 PM PSYCH RN DERMATOPATHOLOGY LABORATORY Pathology/Cytolo gy TISSUE SPECIMEN FROM SKIN / Unknown 02/23/2023 1:27 PM PSYCH RN 02/24/2023 7:38 AM PSYCH RN Janis Santiago MD LAB - PATHOLOGY/CYTO LOGY ORDERABLES DERMATOPATHOLOGY LABORATORY [facility] - Department of Dermatology [facility] [address] [place] [address], [address] [phone] documented in this encounter Visit Diagnoses Not on filedocumented in this encounter Care Teams Credit Union Manager Relationship Specialty Start Date End Date Zhanna Cordero MD [address] [place] [address] PCP - General 12/01/21 Jung Regalado MD [address] [place] [address] Family Medicine 03/16/10 documented as of this encounter
--- OUTSIDE RECORDS SUMMARY | 2024-04-30 14:39 | XMS_ITS | Encounter Summary ---
Author Organization [facility] Address [address] [facility] [place] [address] Care Team Providers Care Director Of Analytics Name Role Phone Jung Regalado MD Unavailable [phone] Zhanna Cordero MD Primary Care Provider [phone] Encounter Details Date Type Department Care Team (Late st Contact Info) Description 01/23/2024 Lab Requisition [facility] - DermPath Lab [address] [place] [address] Hilaria Kaur DO [address] [facility] [address] [place] [address] Social History Tobacco Use Types Packs/Day Years Used Date Smoking Tobacco: Never Passive Smoke Exposure: Never Smokeless Tobacco: Never Alcohol Use Standard Drinks/Week Comments Yes 0 (1 standard drink = 0.6 oz pur e alcohol) socially AUDIT-C Answer Date Recorded Q1: How often do you have a drink containing alcohol? Never 09/16/2023 Q2: How many drinks containi ng alcohol do you have on a typical day when you are drinking? Patient does not drink Q3: How often do you have si x or more drinks on one occasion? Never 09/16/2023 Overall Financial Resource Strain (CARDIA) Answe r Date Recorded How hard is it for you to pa y for the very basics like food, housing, medical care, and heating? Not hard at all 09/16/2023 [place] [facility] - Occupational Stress Questionnaire Answer Date Recorded Do you feel stress - tense, restless, nervous, or anxious, or unable to sleep at night because your mind is troubled all the time - these days? Not at all 09/16/2023 Hunger Vital Sign Answer Date Recorded Within the past 12 months, y ou worried that your food would run out before you got the money to buy more. Never true 09/16/19 24 Within the past 12 months, t he food you bought just didn't last and you didn't have money to get more. Never true 09/16/2023 PRAPARE - Transportation Answer Date Re corded In the past 12 months, has l ack of transportation kept you from medical appointments or from getting medications? No 07/2023 In the past 12 months, has l ack of transportation kept you from meetings, work, or from getting things needed for daily living? No 09/16/2023 Housing Stability Vital Sign Answer Don e Recorded In the last 12 months, was t here a time when you were not able to pay the mortgage or rent on time? No 09/16/2023 In the last 12 months, how many places have you lived? 1 09/16/2023 In the last 12 months, was t here a time when you did not have a steady place to sleep or slept in a mcc (including now)? No 09/16/2023 Sex and Gender Information Value Date Recorded Sex Assigned at Not on file Gender Identity Not on file Sexual Orientation Not on file documented as of this encounter Functional Status Functional Status Response Date of Assess ment Is person deaf or have serious hearing difficult y? No 09/17/2023 Is person blind or have serious difficulty seein g? No 09/17/2023 Does person have serious dif ficulty walking/climbing stairs? Yes 09/17/2023 Does person have difficulty dressing/bathing? Ye s 09/17/2023 Does person have difficulty doing errands alone? Yes 09/17/2023 Cognitive Status Response Date of Assessm ent Does person have difficulty concentrating/remembering/making decisions? Yes 09/17/2023 documented as of this encounter Plan of Treatment Not on file documented as of this encounter Procedures Procedure Name Priority Date/Time Associated Diagnosis Comments DERMATOPATHOLOGY Routine 01/23/2024 11:2 0 AM POOLROOM TABLE ATTENDANT documented in this encounter Results * DERMATOPATHOLOGY (01/23/2024 11:20 AM POOLROOM TABLE ATTENDANT) Case Report Dermatopathology Report Case: [id number] Authorizing Provider: Hilaria Kaur DO Collected: 01/23/2024 11:20 AM Ordering Location: [facility] - Received: 01/24/2024 07:30 AM DermPath Lab Pathologist: Jenny Flores MD Specimens: A) - Skin, right upper arm B) - Skin, left ventral forearm C) - Skin, left anterior LE D) - Skin, right anterior LE 4:22 PM POOLROOM TABLE ATTENDANT DERMATOPATHOLOGY LABORATORY Final Diagnosis Specimen A. SKIN, right upper arm: SQUAMOUS CELL CARCINOMA, KERATOACANTHOMA TYPE (C44.622) Specimen B. SKIN, left ventral forearm: COMPOUND MELANOCYTIC NEVUS, IRRITATED (D22.62) (see microscopic description and comment) Specimen C. SKIN, left anterior LE: LARGE CELL ACANTHOMA (D23.9) Specimen D. SKIN, right anterior LE: HYPERPLASTIC (HYPERTROPHIC) ACTINIC KERATOSIS, LICHENOID (L57.0) 4:22 PM POOLROOM TABLE ATTENDANT DERMATOPATHOLOGY LABORATORY Clinical History A: R/O NMSC B: R/O Melanoma C-D: R/O NMSC 4:22 PM [facility]MATOP[facility]AT[facility] Gross Description Specimen A: Received is one formalin filled container labeled with the patient's name and designated right upper arm. The specimen consists of a shave biopsy measuring 9x7x4 mm. Jar 0. Specimen B: Received is one formalin filled container labeled with the patient's name and designated left ventral forearm. The specimen consists of a shave biopsy measuring 6x5x2 mm. Jar 0. Specimen C: Received is one formalin filled container labeled with the patient's name and designated left anterior LE. The specimen consists of a shave biopsy measuring 6x5x1 mm. Jar 0. Specimen D: Received is one formalin filled container labeled with the patient's name and designated right anterior LE. The specimen consists of a shave biopsy measuring 6x5x1 mm. Jar 0. 4 4:22 PM [facility] Microscopic Description Specimen A. SKIN, right upper arm: Sections show an endo exophytic crateriform lesion with a keratotic plug, formed by confluent follicle-like structures with relatively large keratinocytes and neutrophilic abscesses. Specimen B. SKIN, left ventral forearm: There is melanin pigment in the stratum corneum. There are nests of melanocytes at the dermal-epidermal junction and within the dermis. MART-1/Melan-A immunohistochemical stain highlights the melanocytes as above. PRAME is negative and p16 is mostly retained in the melanocytes. COMMENT: This case was also reviewed by Dr. Hailee Su who agrees with the diagnosis. Specimen C. SKIN, left anterior LE: Sections show compact orthokeratosis with acanthosis composed of slightly larger keratinocytes with basal layer hyperpigmentation. Specimen D. SKIN, right anterior LE: There is hyperkeratosis alternating with parakeratosis. There is epidermal hyperplasia with disorderly maturation of keratinocytes with nuclear pleomorphism confined to the lower half of the epidermis. The dermis shows a band-like, chronic inflammatory infiltrate with occasional apoptotic keratinocytes and some basal vacuolar alteration. 4:22 PM [facility] Disclaimer An external and internal positive and negative controls are appropriate for the histochemical, immunohistochemical and immunofluorescence stain(s) in this case (if any), except where stated explicitly. The performance characteristics of the stain(s) cited in this report were developed and its performance characteristic determined by the Dermatopathology Laboratory at [facility], directed by Dr. Nica Diaz. These tests need not be, and therefore are not, approved by the [place] Food and Drug Administration. The tests are used for clinical purposes. Billing Codes Specimen Charges Stain Charges 15832 81007 11314 44734 1 1 1 1 73528 46312 12753 1 1 1 4:22 PM [facility] Embedded Images 4:22 PM [facility] Pathology/Cytology TISSUE SPECIMEN FROM SKIN / Unknown 01/23/2024 11:20 AM POOLROOM TABLE ATTENDANT 01/24/2024 7:30 AM [facility] Miscellaneous samples (specimen) TISSUE SPECIMEN FROM SKIN / Unknown 01/23/2024 11:20 AM POOLROOM TABLE ATTENDANT 01/24/2024 7:30 AM POOLROOM TABLE ATTENDANT Miscellaneous samples (specimen) TISSUE SPECIMEN FROM SKIN / Unknown 01/23/2024 11:20 AM POOLROOM TABLE ATTENDANT 01/24/2024 7:30 AM POOLROOM TABLE ATTENDANT Miscellaneous samples (specimen) TISSUE SPECIMEN FROM SKIN / Unknown 01/23/2024 11:20 AM POOLROOM TABLE ATTENDANT 01/24/2024 7:30 AM POOLROOM TABLE ATTENDANT Hilaria Ethel Kaur DO LAB - PATHOLOGY/C YTOLOGY ORDERABLES DERMATOPATHOLOGY LABORATORY [facility] - Department of Dermatology [facility] [address] [place] [address], [address] [phone] documented in this encounter Visit Diagnoses Not on filedocumented in this encounter Care Teams Director Of Analytics Relationship Specialty Start Date End Date Zhanna Cordero MD [address] [place] [address] PCP - General 12/01/21 Jung Regalado MD [address] [place] [address] Family Medicine 03/16/10 documented as of this encounter
--- OUTSIDE RECORDS SUMMARY | 2024-04-30 14:39 | XMS_ITS | Clinical Summary ---
Author Organization [facility] Address [address] [place] [address] Care Team Providers Care Seo Manager Name Role Phone Zhanna Cordero MD Primary Care Provider [phone] Allergies No known active allergies Medications acyclovir (ZOVIRAX) 200 mg capsule Take 1 capsule (200 mg total) by mouth as needed 0 Active acyclovir (ZOVIRAX) 5 % ointmentIndicat ions:Mucocutane ous Herpes Simplex Apply 1 application topically as needed 0 Active albuterol HFA (PROVENTIL HFA,VENTOLIN HFA,PROAIR HFA) 90 mcg/actuation inhaler 1 Active diclofenac sodium (VOLTAREN) 1 % gel 1 Active ergocalciferol (VITAMIN D) 50,000 unit capsule TAKE 1 CAPSULE BY MOUTH BY MOUTH ONCE A WEEK 2 Active valACYclovir (VALTREX) 1 gram tablet Take 2 tablets (2,000 mg total) by mouth every 12 (twelve) hours 2 Active cyclobenzaprine (FLEXERIL) 10 mg tablet Take 1 tablet (10 mg total) by mouth 3 (three) times a day as needed 2 Active potassium chloride ER 10 mEq CR capsule TAKE 1 CAPSULE BY MOUTH TWICE A WEEK [address] (PROTONIX) 40 mg EC tablet Take 1 tablet (40 mg total) by mouth every morning 3 Active ibandronate (BONIVA) 150 mg tablet TAKE 1 TABLET BY MOUTH ONCE EVERY MONTH Active nystatin powder APPLY POWDER TOPICALLY TWICE DAILY 4 Active triamcinolone (KENALOG) 0.1 % paste APPLY SMALL AMOUNT TO BLISTERS TWICE DAILY NEEDED 4 Active apixaban (Eliquis) 5 mg tablet Take 1 tablet by mouth twice daily 180 tablet 1 4 Active dilTIAZem XR (dilTIAZem CD) 240 mg 24 hr capsule Take 1 capsule (240 mg total) by mouth daily 90 capsule 4 Active triamterene-hyd roCHLOROthiazid e 37.5-25 mg per tablet/capsule Take 1 tablet/capsule by mouth every morning 90 capsule 4 Active Active Problems Problem Noted Date Diagnosed Date Chest pain 11/09/2022 Anxiety 11/09/2022 Palpitations 04/23/2021 Pain in joint involving right ankle and foot Chronic anticoagulation 10/17/2020 History of 2019 novel coronavirus disease (COVID -19) 05/22/2020 Paroxysmal atrial fibrillation (CMS/HCC) 020 Moderate right ventricular systolic dysfunction 01/28/2020 Left carpal tunnel syndrome 10/09/2019 Overview (10/09/2019): Added automatically from request for surgery [id number] Chronic pain of left knee 11/17/2018 Chronic pain of right knee 11/17/2018 Primary osteoarthritis of both knees 11/17/2018 Myalgia, other site 08/16/2018 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 Mid back pain 07/30/2013 Chronic pain 06/10/2013 Herniation of intervertebral disc of cervical re gion 06/10/2013 Arthritis 06/05/2013 Fatigue 06/05/2013 Cervical pain (neck) 01/18/2013 Neck pain 01/18/2013 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 Arthralgia of shoulder 09/02/2011 Encounter for preventive health examination 07/14 Osteoarthritis of cervical spine 03/16/2010 Degeneration of cervical intervertebral disc 05/2010 HTN (hypertension), benign 03/16/2010 Surgical History Surgery Date Site/Laterality Comments [place] TOTAL ABDOMINAL HYSTERECT W/WO RMVL TUBE OVARY Hysterectomy - (Added by TW Conv) [place] ARTHROPLASTY GLENOHUMERAL JOINT TOTAL SHOULDER Left Shoulder Arthroplasty Total Shoulder Replacement - (Added by TW Conv) KNEE ARTHROSCOPY 02/08/2017 Left Medial meniscus and lateral meniscus tear debridement ANKLE SURGERY 03/14/2017 - 03/13/2018 Left hardware, s/p fracture DILATION AND CURETTAGE OF UTERUS 1970s LAPAROSCOPIC GASTRIC BANDING >10yrs ago ANKLE SURGERY 12/12/2018 - 01/11/2019 Right bone spurs removed FLUORO GUIDED INJECTION SHOULDER LEFT 01/31/2020 Left HYSTERECTOMY BREAST BIOPSY 07/04/2017 Right BREAST EXCISIONAL BIOPSY Left CATARACT EXTRACTION Left 2016 FRACTURE SURGERY Left ankle 2019 CHOLECYSTECTOMY 2010 LASIK 2016 TUBAL LIGATION 1978 BARIATRIC SURGERY 2004 Medical History Medical History Date Comments Hypertension Lumbar spondylosis Levoscoliosis Lumbar facet arthropathy Osteoarthritis Carpal tunnel syndrome Awareness under anesthesia D&C ~ 1970s, recalls drs/nurses back to her while ET was in place Vulvodynia Insomnia Anxiety Obesity Diverticulosis Arthritis Atrial fibrillation (CMS/HCC) (HCC) History of rheumatic fever In ch ildhood Covid-19 GERD (gastroesophageal reflux disease) Osteoporosis Cataract Heart disease Afib 2019 Rheumatic fever Childhood Family History Medical History Relation Name Comments Arthritis Brother 1 Rodolfo gombis Arthritis Brother 2 Sheree gombos Arthritis Father Urban gombos Cancer Father Urban bolesos colon Heart disease Father Urban gombos Hypertension Father Urban gombos Breast cancer Maternal Grandmother Bone cancer Mother Breast cancer Mother Breast cancer Paternal Grandmother Arthritis Sister Mary oreilly Breast cancer Sister Mary oreilly Anesthesia problems Neg Hx Relation Name Status Comments Brother 1 Rodolfo gombis Alive Brother 2 Sheree gombos Alive Father Urban zarco (Age 83) Maternal Grandmother Mother (Age 65) Paternal Grandmother Sister Mary oreilly Alive Social History Tobacco Use Types Packs/Day Years Used Date Smoking Tobacco: Never Smokeless Tobacco: Never Alcohol Use Standard Drinks/Week Comments Yes 2 (1 standard drink = 0.6 oz pur e alcohol) Comments No Sex and Gender Information Value Date Recorded Sex Assigned at Not on file Legal Sex Female 11:28 AM SURFACE GRINDING MACHINE HAND Gender Identity Female 06/30/2022 6:11 AM CDT Sexual Orientation Straight 06/30/2022 6: 11 AM CDT Occupation Industry Job Start Date Job End Date retired Not on file Not on file Not on file Obstetrics History Para Term AB IAB SAB Ectopic Multiple Livin g Live Births 2 2 2 Date Outcome GA Total Labor Labor/2nd/3rd Weight Sex Type Anes PTL Magui A1 A5 Name Clin Term Term Last Filed Vital Signs Vital Sign Reading Time Taken Comments Blood Pressure 118/74 11/08/2023 10:01 AM CDT Pulse 95 11/08/2023 10:01 AM CDT Temperature 36.6 C (97.8 F) 01/22/2020 11:10 AM SURFACE GRINDING MACHINE HAND Respiratory Rate 20 01/31/2020 10:46 AM SURFACE GRINDING MACHINE HAND Oxygen Saturation 97% 11/08/2023 10:01 AM CDT Inhaled Oxygen Concentration - - Weight 76.2 kg (168 lb) 11/08/2023 10:01 AM CDT Height 157.5 cm (5' 2 ) 11/08/2023 10:01 AM CDT Body Mass Index 30.73 11/08/2023 10:01 AM CDT Plan of Treatment Health Maintenance Due Date Last Done Comments Depression Screening 1945 Hepatitis C Screening 1945 DTaP/Tdap/Td Vaccine (1 - Tdap) 12/08/1958 Hepatitis B Screening 12/08/1965 Pneumococcal vaccine 65+ (1 of 1 - PCV) 12/08/1997 Zoster Vaccine (1 of 2) 12/08/1997 Well Visit 65+ 12/08/2012 Fall Risk Assessment 01/30/2021 01/31/2020 Influenza Vaccine (#1) 2023 01/03/2020, 2017 Osteoporosis Screening-Bone Density Scan 07/18/2025 07/19/2023, 07/19/2023, 07/15/2022, Additional history exists Breast Cancer Screening-Mammogram Discontinued 08/26/2023, 06/30/2022, 06/15/2021, Additional history exists Medical Devices Implanted Type Area Information Systems Consultant Device Identifier Shelf Expiration Date Model / Serial / Lot Shoulder Replacement Left: Shoulder Procedures Procedure Name Priority Date/Time Associated Diagnosis Comments SCREENING MAMMOGRAM BILATERAL W GREG Schedule Routine, Read Routine (OP Routine) 08/26/2023 3:35 PM CDT Screening mammogram, encounter for from Last 3 Months or Most Recently Relevant to Health Maintenance Results * Screening Mammogram Bilateral W Greg (08/26/2023 3:35 PM CDT) Anatomical Region Laterality Modality Breast Bilateral Mammography Impressions 08/26/2023 3:40 PM CDT BI-RADS ATLAS category (overall): 2 - Benign There is no mammographic evidence of malignancy. A 1 year screening mammogram is recommended. The patient has been or will be contacted. We recommend annual screening mammography for women at average risk of breast cancer beginning at age 40, based on guidelines of the [place] [employer] (ACR Practice Parameter for the Performance of Screening and Diagnostic Mammography) and [place] [employer]. For women with and elevated risk of breast cancer, please refer to the ACR Practice Parameter for specific screening recommendations. The patient will be entered into a reminder system with a target due date of 1 year for her next screening exam. Narrative 08/26/2023 3:40 PM CDT Screening Mammogram Bilateral W Greg: 08/26/23 The study was acquired using full field digital technology and interpreted from soft copy. 2D digital mammographic views, as well as 3D digital tomosynthesis were performed in the CC and MLO projections. CLINICAL: Screening mammogram, encounter for. No relevant medical history has been documented for this patient. History of breast cancer in Mother, Sister, Maternal Grandmother, Paternal Grandmother. COMPARISONS: 06/30/2022 Screening Mammogram Bilateral W Greg 06/15/2021 Screening Mammogram Bilateral W Greg 11/26/2019 Screening Mammogram Bilateral W Greg 04/02/2019 Diagnostic Mammogram 2D Left 12/28/2018 Radiologic Examination of Surgical Specimen 11/24/2018 Diagnostic Mammogram Left W Greg 11/15/2018 Screening Mammogram Bilateral W Greg BREAST TISSUE: The breasts have scattered areas of fibroglandular density. FINDINGS: There are post-operative findings in the left breast, and there are biopsy clips in the right breast. No suspicious masses, suspicious calcifications, or other suspicious findings are seen within either breast. There has been no suspicious change. us Self Screening Mammogram IMG MAMMO PROCEDURES Fi nal Result from Last 3 Months or Most Recently Relevant to Health Maintenance Insurance [facility] Address: [address] [address] [place] [phone] [facility] Address: [address] [address] [place] [phone] MEDICARE [employer] Address: [address] [address] [place] [phone] Advance Directives For more information, please contact: [phone] Documents on File Type Date Recorded Patient Hearing Examiner Expl anation ADVANCE DIRECTIVE 12/21/2018 12:00 AM [facility] OF BANDER AND CELLOPHANER MACHINE FINANCIAL/MEDICAL Care Teams Seo Manager Relationship Specialty Start Date End Date Zhanna Cordero MD PCP - General Family Medicine 05/22/20
--- OUTSIDE RECORDS SUMMARY | 2024-04-30 14:39 | XMS_ITS | Encounter Summary ---
Author Organization [employer] [facility] Address [address] [place] [address] Care Team Providers Care Dry End Tester Name Role Phone Jung Regalado MD Primary Care Provider + [phone] Encounter Details Date Type Department Care Team (Latest Contact Info) Description 08/28/2001 Outpatient Historical HIS [facility] MICHELINE Gonzalez, Maged Pizano MD NO ADDRESS ON FILE DIFFUS CYSTIC MASTOPATHY (Primary Dx) Social History Tobacco Use Types Packs/Day Years Used Date Smoking Tobacco: Never Assessed Comments Unknown Sex and Gender Information Value Date Recorded Sex Assigned at Not on file Legal Sex Female 4:20 AM TRACK LINER OPERATOR Gender Identity Not on file Sexual Orientation Not on file documented as of this encounter Plan of Treatment Not on file documented as of this encounter Visit Diagnoses Diagnosis Diffuse cystic mastopathy- Primary documented in this encounter Care Teams Dry End Tester Relationship Specialty Start Date End Date Jung Regalado MD [address] [place] [address] PCP - General 01/20/09 documented as of this encounter
--- OUTSIDE RECORDS SUMMARY | 2024-04-30 14:39 | XMS_ITS | Encounter Summary ---
[facility] Organization [facility] Address [address] [place] [address] Care Team Providers Care Statistical Modeler Name Role Phone Jung Regalado MD Primary Care Provider + [phone] Encounter Details Date Type Department Care Team (Latest Contact Info) Description 05/22/1998 Outpatient Historical HIS [facility] MICHELINE Gonzalez, Maged Pizano MD NO ADDRESS ON FILE Other screening mammogram (Primary Dx) Social History Tobacco Use Types Packs/Day Years Used Date Smoking Tobacco: Never Assessed Comments Unknown Sex and Gender Information Value Date Recorded Sex Assigned at Not on file Legal Sex Female 4:20 AM HL7 DEVELOPER Gender Identity Not on file Sexual Orientation Not on file documented as of this encounter Plan of Treatment Not on file documented as of this encounter Visit Diagnoses Diagnosis Other screening mammogram- Primary documented in this encounter Care Teams Statistical Modeler Relationship Specialty Start Date End Date Jung Regalado MD [address] [place] [address] PCP - General 01/20/09 documented as of this encounter
--- OUTSIDE RECORDS SUMMARY | 2024-04-30 14:39 | XMS_ITS | Encounter Summary ---
Author Organization [facility] Address [address] [place] [address] Care Team Providers Care Supervisor Printing Shop Name Role Phone Jung Regalado MD Primary Care Provider + [phone] Encounter Details Date Type Department Care Team (Latest Contact Info) Description 09/23/2004 Outpatient Historical HIS [facility] MICHELINE Gonzalez, Maged Pizano MD NO ADDRESS ON FILE SCREENING MAMM-MAILG NEOPL-OTHER (Primary Dx) Social History Tobacco Use Types Packs/Day Years Used Date Smoking Tobacco: Never Assessed Comments Unknown Sex and Gender Information Value Date Recorded Sex Assigned at Not on file Legal Sex Female 4:20 AM GAS PRODUCER Gender Identity Not on file Sexual Orientation Not on file documented as of this encounter Plan of Treatment Not on file documented as of this encounter Visit Diagnoses Diagnosis Other screening mammogram- Primary documented in this encounter Care Teams Supervisor Printing Shop Relationship Specialty Start Date End Date Jung Regalado MD [address] [place] [address] PCP - General 01/20/09 documented as of this encounter
--- OUTSIDE RECORDS SUMMARY | 2024-04-30 14:39 | XMS_ITS | Encounter Summary ---
Author Organization [facility] Address [address] [place] [address] Care Team Providers Care Cloth Hauler Name Role Phone Jung Regalado MD Primary Care Provider + [phone] Encounter Details Date Type Department Care Team (Latest Contact Info) Description 05/29/1999 Outpatient Historical HIS [facility] MICHELINE Gonzalez, Maged Pizano MD NO ADDRESS ON FILE Nonspecific abnormal findings on radiological or other examinations of the breast (Primary Dx) Social History Tobacco Use Types Packs/Day Years Used Date Smoking Tobacco: Never Assessed Comments Unknown Sex and Gender Information Value Date Recorded Sex Assigned at Not on file Legal Sex Female 4:20 AM MANAGER OF TRAINING Gender Identity Not on file Sexual Orientation Not on file documented as of this encounter Plan of Treatment Not on file documented as of this encounter Visit Diagnoses Diagnosis Nonspecific abnormal findings on radiological or other examinations of the breast- Primary documented in this encounter Care Teams Cloth Hauler Relationship Specialty Start Date End Date Jung Regalado MD [address] [place] [address] PCP - General 01/20/09 documented as of this encounter
--- OUTSIDE RECORDS SUMMARY | 2024-04-30 14:39 | XMS_ITS | Encounter Summary ---
Author Organization [facility] Care Team Providers Care Grain Unloader Name Role Phone Jung Regalado MD Primary Care Provider [phone] Zhanna Cordero MD Primary Care Provider [phone] Encounter Details Date Type Department Care Team (Latest Contact Info) Description 02/08/2017 Orders Only [facility] ProviderConstance MD [address] [place] [address] Social History Tobacco Use Types Packs/Day Years Used Date Smoking Tobacco: Never Comments Unknown Sex and Gender Information Value Date Recorded Sex Assigned at Not on file Legal Sex Female 11:28 AM PATCH PRESS OPERATOR Gender Identity Female 06/30/2022 6:11 AM CDT Sexual Orientation Straight 06/30/2022 6: 11 AM CDT documented as of this encounter Plan of Treatment Not on file documented as of this encounter Procedures Procedure Name Priority Date/Time Associated Diagnosis Comments PROCEDURE - RESULT 02/10/2017 12 :00 AM PATCH PRESS OPERATOR PROCEDURE - RESULT 02/08/2017 12 :00 AM PATCH PRESS OPERATOR documented in this encounter Results * PROCEDURE - RESULT (02/10/2017 12:00 AM PATCH PRESS OPERATOR) Narrative 02/10/2017 12:00 AM PATCH PRESS OPERATOR Ordered by an unspecified provider. Historical Provider Final Res ult * PROCEDURE - RESULT (02/08/2017 12:00 AM PATCH PRESS OPERATOR) Narrative 02/08/2017 12:00 AM PATCH PRESS OPERATOR Ordered by an unspecified provider. us Historical Provider Final Res ult documented in this encounter Visit Diagnoses Not on filedocumented in this encounter Care Teams Grain Unloader Relationship Specialty Start Date End Date Jung Regalado MD [address] [place] [address] PCP - General 10/05/16 05/21/20 Zhanna Cordero MD [address] [place] [address] PCP - General Family Medicine 05/22/20 documented as of this encounter
--- OUTSIDE RECORDS SUMMARY | 2024-04-30 14:39 | XMS_ITS | Encounter Summary ---
Author Organization [facility] Address [address] [place] [address] Care Team Providers Care Physician Asst Name Role Phone Jung Regalado MD Primary Care Provider + [phone] Encounter Details Date Type Department Care Team (Latest Contact Info) Description 11/30/1999 Outpatient Historical HIS [facility] Jung Ramírez MD [address] [address] Other specified disorder of breast (Primary Dx) Social History Tobacco Use Types Packs/Day Years Used Date Smoking Tobacco: Never Assessed Comments Unknown Sex and Gender Information Value Date Recorded Sex Assigned at Not on file Legal Sex Female 4:20 AM MANAGER BEHAVIORAL Gender Identity Not on file Sexual Orientation Not on file documented as of this encounter Plan of Treatment Not on file documented as of this encounter Visit Diagnoses Diagnosis Other specified disorder of breast- Primary documented in this encounter Care Teams Physician Asst Relationship Specialty Start Date End Date Jung Regalado MD [address] [place] [address] PCP - General 01/20/09 documented as of this encounter
--- OUTSIDE RECORDS SUMMARY | 2024-04-30 14:39 | XMS_ITS | Encounter Summary ---
Author Organization [facility] Address [address] [facility] [place] [address] Care Team Providers Care Executive Candidate Developer Name Role Phone Jung Regalado MD Unavailable Zhanna Cordero MD Primary Care Provider [phone] Encounter Details Date Type Department Care Team (Late st Contact Info) Description 02/07/2023 Lab Requisition [facility] - DermPath Lab [address] [facility] [place] [address] Hilaria aKur DO [address] [facility] [facility] [address] [place] [address] Social History Tobacco Use Types Packs/Day Years [...] Priority Date/Time Associated Diagnosis Comments DERMATOPATHOLOGY Routine 02/07/2023 9:31 AM PAPER CORE MACHINE OPERATOR documented in this encounter Results * DERMATOPATHOLOGY (02/07/2023 9:31 AM PAPER CORE MACHINE OPERATOR) Case Report Dermatopathology Report Case: [id number] Authorizing Provider: Hilaria Kaur DO Collected: 02/07/2023 09:31 AM Ordering Location: [facility] Received: 02/08/2023 01:06 PM Pathologist: Hailee Su MD Specimens: A) - Skin, left hand B) - Skin, left lat LE C) - Skin, right wrist 10:50 AM [facility] Final Diagnosis Specimen A. SKIN, left hand: SQUAMOUS CELL CARCINOMA, WELL DIFFERENTIATED (C44.629) Specimen B. SKIN, left lat LE: SQUAMOUS PROLIFERATION (D48.5) (see microscopic description and comment) Specimen C. SKIN, right wrist: ACTINIC KERATOSIS, LICHENOID (L57.0) 10:50 AM [facility]MAT[facility] Clinical History A-C: R/O NMSC 10:50 AM [facility]MAT[facility] Gross Description Specimen A: Received is one formalin filled container labeled with the patient's name and designated left hand. The specimen consists of a shave biopsy measuring 7x6x2 mm. Jar 0. Specimen B: Received is one formalin filled container labeled with the patient's name and designated left lat LE. The specimen consists of a shave biopsy measuring 5x4x1 mm. Jar 0. Specimen C: Received is one formalin filled container labeled with the patient's name and designated right wrist. The specimen consists of a shave biopsy measuring 7x7x1 mm. Jar 0. 10:50 AM [facility]MAT[facility] Microscopic Description Specimen A. SKIN, left hand: Arising in the epidermis and extending into the dermis there are irregularly shaped aggregates of keratinocytes showing evidence of premature cornification. Specimen B. SKIN, left lat LE: Sections show maturational disarray and nuclear pleomorphism of keratinocytes extending throughout the full thickness of the specimen. There is focal parakeratosis. The base of this lesion is not visualized. Additional deeper sections were obtained and reviewed. COMMENT: The histological differential diagnosis includes an irritated and inflamed benign keratosis, an actinic keratosis, a regressing keratoacanthoma and squamous cell carcinoma. Specimen C. SKIN, right wrist: There is focal parakeratosis. The lower half of the epidermis shows disorderly maturation of keratinocytes with nuclear pleomorphism. The dermis shows a band-like, chronic inflammatory infiltrate with occasional apoptotic keratinocytes and some basal vacuolar alteration. 3 10:50 AM [facility]ERMAT[facility]ATH[facility] Disclaimer An external and internal positive and negative controls are appropriate for the histochemical, immunohistochemical and immunofluorescence stain(s) in this case (if any), except where stated explicitly. The performance characteristics of the stain(s) cited in this report were developed and its performance characteristic determined by the Dermatopathology Laboratory at [facility], directed by Dr. Nica Diaz. These tests need not be, and therefore are not, approved by the [place] Food and Drug Administration. The tests are used for clinical purposes. Billing Codes Specimen Charges Stain Charges 73927 [id number] 1 1 1 3 10:50 AM [facility] Embedded Images 3 10:50 AM [facility] Pathology/Cytology TISSUE SPECIMEN FROM SKIN / Unknown 02/07/2023 9:31 AM PAPER CORE MACHINE OPERATOR 02/08/2023 1:06 PM PAPER CORE MACHINE OPERATOR Miscellaneous samples (specimen) TISSUE SPECIMEN FROM SKIN / Unknown 02/07/2023 9:31 AM PAPER CORE MACHINE OPERATOR 02/08/2023 1:06 PM PAPER CORE MACHINE OPERATOR Miscellaneous samples (specimen) TISSUE SPECIMEN FROM SKIN / Unknown 02/07/2023 9:31 AM PAPER CORE MACHINE OPERATOR 02/08/2023 1:06 PM PAPER CORE MACHINE OPERATOR Hilaria Kaur DO LAB - PATHOLOGY/C YTOLOGY ORDERABLES DERMATOPATHOLOGY LABORATORY [facility] - Department of Dermatology [facility] [address] [place] [address], [address] [place] [address], [facility] [phone] documented in this encounter Visit Diagnoses Not on filedocumented in this encounter Care Teams Executive Candidate Developer Relationship Specialty Start Date End Date Zhanna Cordero MD [address] [place] [address] PCP - General 12/01/21 Jung Regalado MD [address] [place] [address] Family Medicine 03/16/10 documented as of this encounter
--- OUTSIDE RECORDS SUMMARY | 2024-04-30 14:39 | XMS_ITS | Encounter Summary ---
Author Organization [employer] Address [address] [place] [address] Care Team Providers Care Wire Machine Cutter Name Role Phone Jung Regalado MD Primary Care Provider + [phone] Encounter Details Date Type Department Care Team (Latest Contact Info) Description 07/24/2004 Inpatient Historical [facility] Maged Gonzalez MD NO ADDRESS ON FILE BENIGN NEOPLASM OVARY (Primary Dx) Social History Tobacco Use Types Packs/Day Years Used Date Smoking Tobacco: Never Assessed Comments Unknown Sex and Gender Information Value Date Recorded Sex Assigned at Not on file Legal Sex Female 4:20 AM CARVER AND CHECKERER SPECIALS Gender Identity Not on file Sexual Orientation Not on file documented as of this encounter Plan of Treatment Not on file documented as of this encounter Procedures Procedure Name Priority Date/Time Associated Diagnosis Comments URINALYSIS W/REFLEX MICROSCOPIC Routine 07/26/2004 12:25 PM CDT CBC WITH DIFFERENTIAL Routine 07/26/2004 12:00 PM CDT CBC WITH DIFFERENTIAL Routine 07/26/2004 12:00 PM CDT HEMOGLOBIN AND HEMATOCRIT Routine 07/20/2004 9:52 AM CDT BASIC METABOLIC PANEL Routine 07/20/2004 9:52 AM CDT documented in this encounter Results * (ABNORMAL) URINALYSIS (07/26/2004 12:25 PM CDT) COLOR UA Yellow INTERFACE SYSTEM CLARITY UA Clear Clear INTERFACE SYSTEM SPECIFIC GRAVITY UA 1.020 1.001 - 1.035 INTERFACE SYSTEM PH UA 6.0 5.0 - 8.0 INTERFACE SYSTEM LEUKOCYTE ESTERASE UA 2+(A) Negative INTERFACE SYSTEM NITRITE UA Negative Negative INTERFACE SYSTEM PROTEIN UA 1+(A) Negative INTERFACE SYSTEM GLUCOSE UA Negative Negative INTERFACE SYSTEM KETONES UA 4+(A) Negative INTERFACE SYSTEM UROBILINOGEN UA 1 <=1 EU INTE RFACE SYSTEM BILIRUBIN UA Negative Negative INTERFA CE SYSTEM BLOOD UA 2+(A) Negative INTERFACE SYSTEM WBC UA 88(H) 0 - 5 /HPF INTERFACE SYSTEM RBC UA 58(H) 0 - 4 /HPF INTERFACE SYSTEM BACTERIA UA 1+(A) None Seen /HPF INTERFACE SYSTEM EPITHELIAL CELLS, URINE 0-2 /HPF INTERFACE SYSTEM 07/26/2004 12:2 5 PM CDT Maged Gonzalez MD URINE ORDERABLES Final Result Performing Organization Address [facility] Phone Number INTERFACE SYSTEM Refer to clinic/hospital department * CBC WITH DIFFERENTIAL (07/26/2004 12:00 PM CDT) NEUTROPHILS 68 45 - 70 % INTERFAC E SYSTEM LYMPHOCYTES 22 16 - 45 % INTERFAC E SYSTEM MONOCYTES 9 3 - 13 % INTERFACE SYSTEM EOSINOPHILS 1 0 - 7 % INTERFAC E SYSTEM BASOPHILS 0 0 - 2 % INTERFACE SYSTEM NEUTROPHIL ABSOLUTE 4.38 1.90 - 7.00 K/uL INTERFACE SYSTEM LYMPHOCYTE ABSOLUTE 1.45 0.70 - 4.50 K/uL INTERFACE SYSTEM MONOCYTE ABSOLUTE 0.57 0.10 - 1.30 K/uL INTERFACE SYSTEM EOSINOPHIL ABSOLUTE 0.07 0.00 - 0.70 K/uL INTERFACE SYSTEM BASOPHILS ABSOLUTE 0.01 0.00 - 0.20 K/uL INTERFACE SYSTEM 07/26/2004 12:0 0 PM CDT Maged Gonzalez MD HEMATOLOGY ORDERABLES Final R esult Performing Organization Address [facility] Phone Number INTERFACE SYSTEM Refer to clinic/hospital department * (ABNORMAL) CBC WITH DIFFERENTIAL (07/26/2004 12:00 PM CDT) WBC 6.5 4.0 - 9.8 K/uL INTERFACE SYSTEM RBC 3.09(L) 3.90 - 4.90 M/uL INTERFACE SYSTEM HEMOGLOBIN 10.1(L) 11.8 - 14.8 g/dL INTERFACE SYSTEM HEMATOCRIT 29.5(L) 35.5 - 44.0 % INTERFACE SYSTEM MCV 95.5 82.0 - 99.0 fL INTERFACE SYSTEM MCH 32.7(H) 27.2 - 32.6 pg INTERFACE SYSTEM MCHC 34.2 31.5 - 35.5 % INTERFACE SYSTEM RDW 13.7 11.5 - 14.5 % INTERFACE SYSTEM RDW-STDEV 47.4 37.1 - 48.7 fL INTERFACE SYSTEM PLATELETS 154 140 - 350 K/uL INTERFACE SYSTEM MPV 8.7(L) 9.3 - 12.4 fL INTERFACE SYSTEM 07/26/2004 12:0 0 PM CDT Maged Gonzalez MD HEMATOLOGY ORDERABLES Final R esult Performing Organization Address City/State/[facility] Co de Phone Number INTERFACE SYSTEM Refer to clinic/hospital department * HEMOGLOBIN AND HEMATOCRIT (07/20/2004 9:52 AM CDT) HEMOGLOBIN 14.0 11.8 - 14.8 g/dL INTERFACE SYSTEM HEMATOCRIT 40.4 35.5 - 44.0 % INTERFACE SYSTEM 07/20/2004 9:52 AM CDT Maged Gonzalez MD HEMATOLOGY ORDERABLES Final R esult Performing Organization Address City/State/[facility] Co de Phone Number INTERFACE SYSTEM Refer to clinic/hospital department * BASIC METABOLIC PANEL (07/20/2004 9:52 AM CDT) GLUCOSE 95 65 - 109 mg/dL INTERFACE SYSTEM CREATININE 0.9 0.4 - 1.2 mg/dL INTERFACE SYSTEM CALCIUM 9.9 8.6 - 10.2 mg/dL INTERFACE SYSTEM BUN 20 6 - 20 mg/dL INTERFACE SYSTEM SODIUM 139 135 - 145 mmol/L INTERFACE SYSTEM POTASSIUM 3.9 3.5 - 4.9 mmol/L INTERFACE SYSTEM CHLORIDE 102 96 - 108 mmol/L INTERFACE SYSTEM CO2 27 22 - 30 mmol/L INTERFACE SYSTEM 07/20/2004 9:52 AM CDT us Maged Gonzalez MD CHEMISTRY ORDERABLES Final Re sult INTERFACE SYSTEM Refer to clinic/hospital department documented in this encounter Visit Diagnoses Diagnosis Benign neoplasm of ovary- Primary documented in this encounter Care Teams Wire Machine Cutter Relationship Specialty Start Date End Date Jung Regalado MD [address] [place] [address] PCP - General 01/20/09 documented as of this encounter
--- OUTSIDE RECORDS SUMMARY | 2024-04-30 14:39 | XMS_ITS | Referral Summary ---
Author Organization [facility] Address [address] [place] [address] Care Team Providers Care Claim Taker Name Role Phone Zhanna Cordero MD Primary Care Provider [phone] Allergies No known active allergies Medications acyclovir [...] (10/09/2019): Added automatically from request for surgery [id number] Chronic pain of left knee 11/17/2018 Chronic [...] intervertebral disc 05/2010 HTN (hypertension), benign 03/16/2010 Social History Tobacco Use Types Packs/Day Years Used Date Smoking Tobacco: Never Smokeless Tobacco: Never Alcohol Use Standard Drinks/Week Comments Yes 2 (1 standard drink = 0.6 oz pur e alcohol) Comments No Sex and Gender Information Value Date Recorded Sex Assigned at Not on file Legal Sex Female 11:28 AM OIL WELL PUMPER Gender Identity Female 06/30/2022 6:11 AM CDT Sexual Orientation Straight 06/30/2022 6: 11 AM CDT Occupation Industry Job Start Date Job End Date retired Not on file Not on file Not on file Last Filed Vital Signs Vital Sign Reading Time Taken Comments Blood Pressure 118/74 11/08/2023 10:01 AM CDT Pulse 95 11/08/2023 10:01 AM CDT Temperature 36.6 C (97.8 F) 01/22/2020 11:10 AM OIL WELL PUMPER Respiratory Rate 20 01/31/2020 10:46 AM OIL WELL PUMPER Oxygen Saturation 97% 11/08/2023 10:01 AM CDT Inhaled Oxygen Concentration - - Weight 76.2 kg (168 lb) 11/08/2023 10:01 AM CDT Height 157.5 cm (5' 2 ) 11/08/2023 10:01 AM CDT Body Mass Index 30.73 11/08/2023 10:01 AM CDT Plan of Treatment Not on file Medical Devices Implanted Type Area Clothing Designer Device Identifier Shelf Expiration Date Model / [...] age 40, based on guidelines of the [employer] (ACR Practice Parameter for the Performance of Screening and Diagnostic Mammography) and [employer]. For women [...] Most Recently Relevant to Health Maintenance Insurance MEDICARE SOLUTIONS MEDICARE SOLUTIONS MEDICARE [employer] Advance Directives For more information, please contact: [phone] Documents on File Type Date Recorded Patient Motorman/Woman Expl anation ADVANCE DIRECTIVE 12/21/2018 12:00 AM [facility] ER OF PUBLIC SPEAKING TEACHER FINANCIAL/MEDICAL Care Teams Claim Taker Relationship Specialty Start Date End Date Zhanna Cordero MD PCP - General Family Medicine 05/22/20
--- OUTSIDE RECORDS SUMMARY | 2024-04-30 14:39 | XMS_ITS | Encounter Summary ---
Author Organization [facility] Address [address] [place] [address] Care Team Providers Care Wood Molder Name Role Phone Jung Regalado MD Primary Care Provider + [phone] Encounter Details Date Type Department Care Team (Latest Contact Info) Description 01/01/2008 Outpatient Historical HIS [facility] Maged Anne MD NO ADDRESS ON FILE Other Screening Mammogram Social History Tobacco Use Types Packs/Day Years Used Date Smoking Tobacco: Never Assessed Comments Unknown Sex and Gender Information Value Date Recorded Sex Assigned at Not on file Legal Sex Female 4:20 AM PROGRAM RESEARCH SPECIALIST Gender Identity Not on file Sexual Orientation Not on file documented as of this encounter Plan of Treatment Not on file documented as of this encounter Procedures Procedure Name Priority Date/Time Associated Diagnosis Comments MAMMO SCREEN BILAT W OR WO CAD Routine 01/01/2008 11:34 AM CDT documented in this encounter Results * MAMMO DIGITAL SCREEN BILAT (01/01/2008 11:34 AM CDT) Anatomical Region Laterality Modality Breast Bilateral Other 01/01/2008 11:3 4 AM CDT Narrative 01/02/2008 12:01 PM CDT [facility] [address] [place], [place] [address] Admit Date: 01/01/2008 KAMRAN LAU Sex: F Admit Prov: MAGED ARDON Date: 1945 Primary Care Prov: CMRN: [id number] Room: ANG SSN: [id number] IMAGING SERVICES Ordering Prov: MAGED ARDON Accession Number: [id number] Interpretation BILATERAL SCREENING DIGITAL MAMMOGRAMS WITH COMPUTER ASSISTED DIAGNOSIS 01/01/08 History: Annual screening study. Comparison is made to 10/20/06 and 09/23/04. The films were reviewed using the CAD system. The breast parenchyma has scattered fibroglandular densities. No new dominant masses, suspicious calcifications or areas of parenchymal asymmetry or distortion are identified. Impression: Stable screening mammogram Recommend routine followup Overall assessment: BIRADS category 1 - Negative Assessment BIRADS: 1-Negative Recommendation: Normal interval follow-up Dictated by: KRISTY LEON Electronically signed by: KRISTY LEON 01/02/2008 11:59 Transcribed: 01/01/2008 20:52 AMK Procedure Note Kristy Leon - 01/02/[address] [address] Admit Date: 01/01/2008 KAMRAN LAU Sex: F Admit Prov: DUGLAS MAGED Pizano Date: 1945 [facility] Prov: CMRN: [id number] Room: ANG SSN: [id number] IMAGING SERVICES Ordering Prov: MAGED ARDON Interpretation BILATERAL SCREENING DIGITAL MAMMOGRAMS WITH COMPUTER ASSISTEDDIAGNOSIS 01/01/08 History: Annual screening study. Comparison is made to 10/20/06 and 09/23/04. The films were reviewedusing the CAD system. The breast parenchyma has scattered fibroglandulardensities. No new dominant masses, suspicious calcifications or areas ofparenchymal asymmetry or distortion are identified. Impression: Stable screening mammogram Recommend routine followup Overall assessment: BIRADS category 1 - Negative Assessment BIRADS: 1-Negative Recommendation: Normal interval follow-up Dictated by: KRISTY LEON Electronically signed by: KRISTY LEON 01/02/2008 11:59 Transcribed: 01/01/2008 20:52 AMK Maged Ardon MD MAMMO ORDERABLES Final Result documented in this encounter Visit Diagnoses Diagnosis Other screening mammogram documented in this encounter Care Teams Wood Molder Relationship Specialty Start Date End Date Jung Regalado MD [address] [place] [id number] PCP - General 01/20/09 documented as of this encounter
--- OUTSIDE RECORDS SUMMARY | 2024-04-30 14:39 | XMS_ITS | Encounter Summary ---
Author Organization [facility] Address [address] [place] [address] Care Team Providers Care Pattern Vault Clerk Name Role Phone Jung Regalado MD Primary Care Provider + [phone] Encounter Details Date Type Department Care Team (Latest Contact Info) Description 05/18/1999 Outpatient Historical HIS [facility] MICHELINE Gonzalez, Maged Pizano MD NO ADDRESS ON FILE Other screening mammogram (Primary Dx) Social History Tobacco Use Types Packs/Day Years Used Date Smoking Tobacco: Never Assessed Comments Unknown Sex and Gender Information Value Date Recorded Sex Assigned at Not on file Legal Sex Female 4:20 AM COMPENSATION DIRECTOR Gender Identity Not on file Sexual Orientation Not on file documented as of this encounter Plan of Treatment Not on file documented as of this encounter Visit Diagnoses Diagnosis Other screening mammogram- Primary documented in this encounter Care Teams Pattern Vault Clerk Relationship Specialty Start Date End Date Jung Regalado MD [address] [place] [address] PCP - General 01/20/09 documented as of this encounter
--- OUTSIDE RECORDS SUMMARY | 2024-04-30 14:39 | XMS_ITS | Encounter Summary ---
Author Organization [facility] Address [address] [place] [address] Care Team Providers Care Hourly Sign Language Interpreter Name Role Phone Jung Regalado MD Primary Care Provider + [phone] Encounter Details Date Type Department Care Team (Latest Contact Info) Description 10/20/2006 Outpatient Historical HIS [facility] MICHELINE Gonzalez, Maged Pizano MD NO ADDRESS ON FILE Other Screening Mammogram (Primary Dx) Social History Tobacco Use Types Packs/Day Years Used Date Smoking Tobacco: Never Assessed Comments Unknown Sex and Gender Information Value Date Recorded Sex Assigned at Not on file Legal Sex Female 4:20 AM DIET AIDE Gender Identity Not on file Sexual Orientation Not on file documented as of this encounter Plan of Treatment Not on file documented as of this encounter Visit Diagnoses Diagnosis Other screening mammogram- Primary documented in this encounter Care Teams Hourly Sign Language Interpreter Relationship Specialty Start Date End Date Jung Regalado MD [address] [place] [address] PCP - General 01/20/09 documented as of this encounter
--- OUTSIDE RECORDS SUMMARY | 2024-04-30 14:40 | XMS_ITS | Encounter Summary ---
Author Organization [facility] Address [address] [place] [address] Care Team Providers Care Plate Setter Name Role Phone Jung Regalado MD Unavailable [phone] Jung Regalado MD Primary Care Provider + [phone] Zhanna Cordero MD Primary Care Provider [phone] Encounter Details Date Type Department Care Team (Late st Contact Info) Description 04/26/2018 Lab Requisition [facility] [address] [facility] [place] [address] Abiola Stoddard MD [address] [facility] [address] [place] [address] Social History Tobacco Use Types Packs/Day Years Used Date Smoking Tobacco: Never Smokeless Tobacco: Never Alcohol Use Standard Drinks/Week Comments Yes 0 (1 standard drink = 0.6 oz pur e alcohol) Sex and Gender Information Value Date Recorded Sex Assigned at Not on file Gender Identity Not on file Sexual Orientation Not on file documented as of this encounter Plan of Treatment Not on file documented as of this encounter Procedures Procedure Name Priority Date/Time Associated Diagnosis Comments DERMATOPATH TECHNICAL REPORT Routine 04/25/2018 12:00 AM BUSINESS SYSTEMS DEVELOPER documented in this encounter Results * DERMATOPATH TECHNICAL REPORT (04/25/2018 12:00 AM BUSINESS SYSTEMS DEVELOPER) Case Report Dermatopathology Report Case: [id number] Authorizing Provider: Abiola Stoddard MD Collected: 04/25/2018 12:00 AM Pathologist: Freida Diehl MD Received: 04/26/2018 10:46 AM Specimen: Skin, right post thigh 12:[address] [facility] Addendum 1 At the request of the diagnosing physician, the technical component for Goodview-1/Melan A was performed by [facility] Dermatopathology [facility]. 12:[address] [facility] DERMATOPATH[facility]Y [facility] Addendum electronically signed by Freida Diehl MD on 04/28/2018 at 12:27 PM Clinical History Nevus, irr color, irr border. 12:[address] [facility] DERMATOPATH[facility]Y [facility] Gross Description Specimen A: Received is one formalin filled container labeled with the patient's name and designated right post thigh. The specimen consists of a shave measuring [id number]. Jar 0. [facility] Dermatopathology [facility] performed the technical component only. 12:[address] [facility] DERMATOPATHOLOGY [facility] Embedded Images 12:[address] [facility] DERMATOPATH[facility]Y [facility] DISCLAIMER An external and internal positive and negative controls are appropriate for the histochemical, immunohistochemical and immunofluorescence stain(s) in this case (if any), except where stated explicitly. The performance characteristics of the stain(s) cited in this report were developed and its performance characteristic determined by the Dermatopathology Laboratory at [facility], directed by Dr. Nica Diaz. These tests need not be, and therefore are not, approved by the [place] Food and Drug Administration. The tests are used for clinical purposes. 12:[address] [facility] DERMATOPATH[facility]Y [facility]ORY Pathology/Cytolog y TISSUE SPECIMEN FROM SKIN / Unknown 04/25/2018 04/26/2018 10:46 AM BUSINESS SYSTEMS DEVELOPER Abiola Stoddard MD LAB - PATHOLOGY/CYT OLOGY ORDERABLES DERMATOPATHOLOGY LABORATORY [facility] - Department of Dermatology [address] [place] [address] 5th Floor Lab [address] [phone] documented in this encounter Visit Diagnoses Not on filedocumented in this encounter Care Teams Plate Setter Relationship Specialty Start Date End Date Jung Regalado MD [address] [place] [address] PCP - General 07/12/17 11/30/21 Zhanna Cordero MD [address] [place] [address] PCP - General 12/01/21 Jung Regalado MD [address] [place] [address] Family Medicine 03/16/10 documented as of this encounter
--- OUTSIDE RECORDS SUMMARY | 2024-04-30 14:40 | XMS_ITS | Patient Health Summary ---
Author Organization [facility] [employer] Address [address] [place] [address] Care Team Providers Care Sewage Disposal Engineer Name Role Phone Jung Regalado MD Unavailable [phone] Zhanna Cordero MD Primary Care Provider [phone] Note from [facility],non-owned Affiliates and Associated Physician Practices is amultiple site organization consisting of ambulatory clinics and hospital sitesin [place], [place], [place] and [place]. This disclosure is being madepursuant to the Care Everywhere program and may not contain all information available regarding this patient. Last updated 17.[facility] Allergies No known active allergies Medications * Be aware that medications may not be up to date on this document. Alwaysverify current medications with the patient. * dilTIAZem coated beads 24hr (Cardizem CD) 240 MG capsule Take 1 (one) capsule by mouth once daily Reasons: Atrial Fibrillation, High Blood Pressure Disorder * Acetaminophen (TYLENOL PO) * melatonin 3 MG tablet(Started 09/23/2023) Take 2 (two) tablets by mouth at bedtime Reasons: Trouble Sleeping * polyethylene glycol 3350 (Miralax) 17 g packet(Started 09/23/2023) Take 17 (seventeen) g by mouth once daily as needed for Constipation * apixaban (Eliquis) 5 MG tablet(Started 09/23/2023) Take 1 (one) tablet by mouth 2 times daily 3 refills by 09/22/2024 * triamterene-hydroCHLOROthiazide (Dyazide) 37.5-25 MG capsule Take 1 (one) capsule by mouth once daily Active Problems Problem Noted Date Diagnosed Date Acute respiratory failure with hypoxia Class 1 obesity due to exces s calories without serious comorbidity with body mass index (BMI) of 31.0 to 31.9 in adult 09/16/2023 Hypokalemia 09/16/2023 Polypharmacy 09/16/2023 Accidental drug overdose 09/16/2023 Generalized anxiety disorder 09/16/2023 Leukocytosis, unspecified type 09/15/2023 Altered mental status, unspe cified altered mental status type 09/15/2023 Weakness 09/15/2023 KIANA (acute kidney injury) 09/15/2023 Anxiety 11/09/2022 11/30/2022 Presence of right artificial knee joint 02/09/20 22 Presence of left artificial shoulder joint 01/12 Cataract extraction status, left eye 01/12/2022 Abnormal mammography 12/01/2021 Primary osteoarthritis of left knee 12/01/2021 Primary osteoarthritis of right knee 12/01/2021 Chronic anticoagulation 10/17/2020 History of 2019 novel coronavirus disease (COVID -19) 05/22/2020 Moderate right ventricular systolic dysfunction 01/28/2020 Paroxysmal atrial fibrillation 01/28/2020 Left carpal tunnel syndrome 10/09/2019 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 Depressive disorder 01/30/2014 Diverticulitis of colon 01/30/2014 Mid back pain 07/30/2013 Herniation of intervertebral disc of cervical re gion 06/10/2013 Arthritis 06/05/2013 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 Arthralgia of shoulder 09/02/2011 Primary hypertension 03/16/2010 Degeneration of cervical intervertebral disc 05/2010 Cervical spondylosis without myelopathy 03/16/19 11 Social History Tobacco Use Types Packs/Day Years Used Date Smoking Tobacco: Never Passive Smoke Exposure: Never Smokeless Tobacco: Never Tobacco Cessation:Counseling Given: Not Answered Alcohol Use Standard Drinks/Week Comments Yes 0 [...] and heating? Not hard at all 09/16/2023 [facility] - Occupational Stress [...] place to sleep or slept in a assisted (including now)? No 09/16/2023 Sex and Gender Information Value Date Recorded Sex Assigned at Not on file Gender Identity Not on file Sexual Orientation Not on file Last Filed Vital Signs Vital Sign Reading Time Taken Comments Blood Pressure 125/82 11/24/2023 9:45 AM CDT Pulse 71 11/24/2023 9:45 AM CDT Temperature 37 C (98.6 F) 09/23/2023 12:33 PM CDT Respiratory Rate 12 11/24/2023 9:45 AM CDT Oxygen Saturation 94% 09/23/2023 3:57 AM CDT Inhaled Oxygen Concentration - - Weight 75.3 kg (166 lb) 11/24/2023 9:45 AM CDT Height 156.2 cm (5' 1.5 ) 11/24/2023 9:45 AM CDT Body Mass Index 30.86 11/24/2023 9:45 AM CDT Medical Devices Implanted Type Area Numerical Analysis Group Manager Device Identifier Shelf Expiration Date Model / Serial / Lot Cmpnt Ptlr S 31x9mm Tritanium Strl Lf Implanted:Qty: 1 on 02/05/2022 by Jason Vargas DO at [facility] Right: Knee [employer] 01/08/2027 [id number] / / [id number] Bsplt Tib Trthlm 4 Kn Tritanium Implanted:Qty: 1 on 02/05/2022 by Jason Vargas DO at [facility] Right: Knee [employer] 2026 [id number] / / [id number] Cmpnt Fem Kn Rt 3 Crcte Rtn Bead Trthln Implanted:Qty: 1 on 02/05/2022 by Jason Vargas DO at [facility] Right: Knee [employer] 11/21/2026 [id number] / / [id number] Ins Tib 4 9mm Kn X3 Crcte Sub Trthln Implanted:Qty: 1 on 02/05/2022 by Jason Vargas DO at [facility] Right: Knee [employer] 12/02/2026 [id number] / / [id number] Procedures * DERMATOPATHOLOGY(Performed 02/22/2024) * DERMATOPATHOLOGY(Performed 01/23/2024) * GLUCOSE - POINT OF CARE(Performed 09/23/2023) * VANCOMYCIN LEVEL TROUGH(Performed 09/23/2023) * GLUCOSE - POINT OF CARE(Performed 09/23/2023) * HEMOGLOBIN A1C(Performed 09/23/2023) * CBC W/O DIFFERENTIAL(Performed 09/23/2023) * BASIC METABOLIC PANEL (CALCIUM TOTAL)(Performed 09/23/2023) * MAGNESIUM BLOOD(Performed 09/23/2023) * PHOSPHORUS BLOOD(Performed 09/23/2023) * GLUCOSE - POINT OF CARE(Performed 09/23/2023) * GLUCOSE - POINT OF CARE(Performed 09/22/2023) * GLUCOSE - POINT OF CARE(Performed 09/22/2023) * GLUCOSE - POINT OF CARE(Performed 09/22/2023) * MRI BRAIN WO CONTRAST(Performed 09/22/2023) Performed for Arthritis * GLUCOSE - POINT OF CARE(Performed 09/22/2023) * GLUCOSE - POINT OF CARE(Performed 09/22/2023) * CBC W/O DIFFERENTIAL(Performed 09/22/2023) * BASIC METABOLIC PANEL (CALCIUM TOTAL)(Performed 09/22/2023) * MAGNESIUM BLOOD(Performed 09/22/2023) * PHOSPHORUS BLOOD(Performed 09/22/2023) * CT THORACIC SPINE WO CONTRAST(Performed 09/21/2023) Performed for Back pain, subacute * CT LUMBAR SPINE WO CONTRAST(Performed 09/21/2023) Performed for Back pain, subacute * CT CERVICAL SPINE WO CONTRAST(Performed 09/21/2023) Performed for Back pain, subacute * CBC W/O DIFFERENTIAL(Performed 09/21/2023) * BASIC METABOLIC PANEL (CALCIUM TOTAL)(Performed 09/21/2023) * MAGNESIUM BLOOD(Performed 09/21/2023) * PHOSPHORUS BLOOD(Performed 09/21/2023) * VANCOMYCIN LEVEL TROUGH(Performed 09/20/2023) * CBC W/O DIFFERENTIAL(Performed 09/20/2023) * BASIC METABOLIC PANEL (CALCIUM TOTAL)(Performed 09/20/2023) * MAGNESIUM BLOOD(Performed 09/20/2023) * PHOSPHORUS BLOOD(Performed 09/20/2023) * POTASSIUM BLOOD(Performed 09/19/2023) * VDRL CSF W REFLEX TO TITER(Performed 09/19/2023) * MENINGITIS/ENCEPHALITIS PANEL CSF(Performed 09/19/2023) * CULTURE FUNGUS OTHER+FUNGUS SMEAR(Performed 09/19/2023) * HERPES SIMPLEX 1+2 PCR CSF(Performed 09/19/2023) * PARANEOPLASTIC AUTOANTIBODY EVAL CSF(Performed 09/19/2023) * VIRAL CULTURE MISC(Performed 09/19/2023) * CULTURE AFB+SMEAR(Performed 09/19/2023) * CRYPTOCOCCUS ANTIGEN CSF(Performed 09/19/2023) * HOLD SPECIMEN CSF(Performed 09/19/2023) * WEST NILE ANTIBODY IGG/IGM CSF PANEL(Performed 09/19/2023) * CELL COUNT W DIFFERENTIAL CSF(Performed 09/19/2023) * PROTEIN CSF(Performed 09/19/2023) * GLUCOSE CSF(Performed 09/19/2023) * CULTURE CSF+GRAM STAIN(Performed 09/19/2023) * BORRELIA BURGDORFERI AB IGG/IGM CSF(Performed 09/19/2023) Performed for Altered mental status, unspecified altered mental status type * FL LUMBAR PUNCTURE(Performed 09/19/2023) Performed for Altered mental status, unspecified altered mental status type * CBC W/O DIFFERENTIAL(Performed 09/19/2023) * BASIC METABOLIC PANEL (CALCIUM TOTAL)(Performed 09/19/2023) * MAGNESIUM BLOOD(Performed 09/19/2023) * PHOSPHORUS BLOOD(Performed 09/19/2023) * OSMOLALITY BLOOD(Performed 09/18/2023) * CBC W/O DIFFERENTIAL(Performed 09/18/2023) * BASIC METABOLIC PANEL (CALCIUM TOTAL)(Performed 09/18/2023) * MAGNESIUM BLOOD(Performed 09/18/2023) * PHOSPHORUS BLOOD(Performed 09/18/2023) * CT HEAD WO CONTRAST(Performed 09/17/2023) Performed for Altered mental status, unspecified altered mental status type * BASIC METABOLIC PANEL (CALCIUM TOTAL)(Performed 09/17/2023) * MAGNESIUM BLOOD(Performed 09/17/2023) * PHOSPHORUS BLOOD(Performed 09/17/2023) * CBC W AUTO DIFFERENTIAL(Performed 09/17/2023) * CREATINE URINE(Performed 09/17/2023) * LYTES (NA K CL) URINE RANDOM PANEL(Performed 09/17/2023) * XR CHEST 1VW PORTABLE(Performed 09/16/2023) Performed for Altered mental status, unspecified altered mental status type, Polypharmacy, Primary hypertension * CREATININE URINE RANDOM(Performed 09/16/2023) Performed for KIANA (acute kidney injury) (HCC) * LYTES (NA K CL) URINE RANDOM PANEL(Performed 09/16/2023) Performed for KIANA (acute kidney injury) (HCC) * CARDIAC EKG ORDER(Performed 09/16/2023) * RENAL FUNCTION PANEL(Performed 09/16/2023) Performed for Altered mental status, unspecified altered mental status type * MAGNESIUM BLOOD(Performed 09/16/2023) Performed for Altered mental status, unspecified altered mental status type * CBC W/O DIFFERENTIAL(Performed 09/16/2023) Performed for Altered mental status, unspecified altered mental status type * EKG 12-LEAD(Performed 09/16/2023) Performed for Altered mental status, unspecified altered mental status type * MRI BRAIN WWO CONTRAST(Performed 09/15/2023) Performed for Weakness * URINE MICROSCOPIC ONLY REFLEX TO CULTURE(Performed 09/15/2023) * URINALYSIS REFLEX MICROSCOPIC REFLEX CULTURE(Performed 09/15/2023) * URINE DRUG SCREEN IMMUNOASSAY(Performed 09/15/2023) * TSH REFLEX FREE T4(Performed 09/15/2023) Performed for Altered mental status, unspecified altered mental status type * CK BLOOD(Performed 09/15/2023) * BLOOD TYPE VERIFICATION(Performed 09/15/2023) * TRICYCLICS SCREEN BLOOD(Performed 09/15/2023) * ACETAMINOPHEN LEVEL(Performed 09/15/2023) * SALICYLATE LEVEL BLOOD(Performed 09/15/2023) * ALCOHOL ETHYL BLOOD(Performed 09/15/2023) * CT ANGIO BRAIN NECK STROKE(Performed 09/15/2023) Performed for Weakness * EKG 12-LEAD(Performed 09/15/2023) Performed for Weakness * TYPE + SCREEN PANEL(Performed 09/15/2023) * PT-INR [facility]H(Performed 09/15/2023) * COMPREHENSIVE METABOLIC PANEL(Performed 09/15/2023) * CBC W AUTO DIFFERENTIAL(Performed 09/15/2023) * CT BRAIN STROKE(Performed 09/15/2023) Performed for Weakness * CREATININE - POCT INTERFACED(Performed 09/15/2023) * INR WHOLE BLOOD - POINT OF CARE (IP) STROKE(Performed 09/15/2023) * GLUCOSE - POINT OF CARE(Performed 09/15/2023) * DERMATOPATHOLOGY(Performed 02/23/2023) * DERMATOPATHOLOGY(Performed 02/07/2023) * CARDIAC RHYTHM STRIP ORDER(Performed 02/09/2022) * IMAGING/RADIOLOGY/XRAY RESULTS ORDER(Performed 02/09/2022) * HGB HCT PANEL(Performed 02/06/2022) Performed for Primary osteoarthritis of right knee * HOME CPAP/BIPAP FOR HOSP USE: NOCTURNAL 02(Performed 02/05/2022) Performed for Primary osteoarthritis of right knee * OT EVAL AND TREAT(Performed 02/05/2022) Performed for Primary osteoarthritis of right knee * XR KNEE RIGHT 2VW OR LESS(Performed 02/05/2022) Performed for Primary osteoarthritis of right knee * IA TOTAL KNEE REPLACEMENT(Performed 02/05/2022) * PERIPHERAL BLOCK(Performed 02/05/2022) * CARDIAC RHYTHM STRIP ORDER(Performed 01/29/2022) * CT KNEE RIGHT WO CONTRAST(Performed 01/08/2022) Performed for Arthritis of knee, right * CULTURE YEAST(Performed 06/02/2021) Performed for Vulvodynia * DERMATOPATHOLOGY(Performed 01/05/2021) * DERMATOPATHOLOGY(Performed 07/03/2020) * DERMATOPATHOLOGY(Performed 06/06/2018) * DERMATOPATH TECHNICAL REPORT(Performed 04/25/2018) * LAB HISTORICAL RESULTS-ONBASE(Performed 07/21/2016) * LAB HISTORICAL RESULTS-ONBASE(Performed 07/21/2016) * PATHOLOGY/GENETICS HISTORICAL-ONBASE(Performed 07/21/2016) * WET PREP - POINT OF CARE (AMB) [facility](Performed 06/10/2015) * FUNGUS ROMAN - POINT OF CARE (AMB) [facility](Performed 06/10/2015) * PH FLUID - POCT (AMB) [facility](Performed 06/10/2015) * CULTURE YEAST WITH DIRECT FLUORESCENT ROMAN(Performed 06/10/2015) * DERMATOPATHOLOGY(Performed 07/02/2011) * CYTOLOGY SMEAR PAP THIN PREP(Performed 06/25/1998) * CYTOLOGY SMEAR PAP THIN PREP(Performed 01/31/1998) * CYTOLOGY SMEAR PAP THIN PREP(Performed 07/19/1997) Results * DERMATOPATHOLOGY (02/22/2024 8:43 AM INDUSTRIAL 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 Case Report Dermatopathology Report Case: [id number] Authorizing Provider: Hilaria Kaur DO Collected: 02/22/2024 08:43 AM Ordering Location: [facility] - Received: 02/22/2024 03:46 PM [facility] Lab Pathologist: Antonieta Zazueta MD Specimen: Skin, right upper arm 4 12:06 PM [facility] DERMATOPATHOLOGY LABORATORY Final Diagnosis Specimen A. SKIN, right upper arm: DERMAL SCAR RESIDUAL SQUAMOUS CELL CARCINOMA NOT IDENTIFIED (L90.5) 4 12:06 PM [facility] DERMATOPATHOLOGY LABORATORY Clinical History Bx proven, R/O SCC 4 12:06 PM [facility] DERMATOPATHOLOGY LABORATORY Gross Description Specimen A: Received is one formalin filled container labeled with the patient's name and designated right upper arm. The specimen consists of a non-oriented ellipse of skin measuring [id number] mm. The epidermal surface is unremarkable. The margin is inked green. The 12 o'clock and 6 o'clock tips are submitted in cassette 1. The remainder of the ellipse is serially sectioned and submitted in cassette 2. Jar 0. 4 12:06 PM [facility] DERMATOPATHOLOGY LABORATORY Microscopic Description Specimen A. SKIN, right upper arm: There are fibroblasts and collagen bundles oriented parallel to the skin surface. There are elongated blood vessels, some of which are oriented perpendicular to the skin surface. No residual squamous cell carcinoma is identified. 4 12:06 PM [facility] DERMATOPATHOLOGY LABORATORY Disclaimer An external and internal positive and negative controls are appropriate for the histochemical, immunohistochemical and immunofluorescence stain(s) in this case (if any), except where stated explicitly. The performance characteristics of the stain(s) cited in this report were developed and its performance characteristic determined by the Dermatopathology Laboratory at [facility], directed by Dr. Nica Diaz. These tests need not be, and therefore are not, approved by the [place] Food and Drug Administration. The tests are used for clinical purposes. Billing Codes Specimen Charges Stain Charges 81936 1 4 12:06 PM [facility] DERMATOPATHOLOGY LABORATORY Embedded Images 4 12:06 PM [facility] DERMATOPATHOLOGY LABORATORY Pathology/Cytolo gy TISSUE SPECIMEN FROM SKIN / Unknown 02/22/2024 8:43 AM [employer] GR[employer]DSKEEPER 02/22/2024 3:46 PM [employer] GROUNDSKEEPER Hilaria Kaur DO LAB - PATHOLOGY/C YTOLOGY ORDERABLES DERMATOPATHOLOGY LABORATORY [facility] Department of Dermatology [facility] [address] [place] [address], [facility] [phone] * (ABNORMAL) GLUCOSE - POINT OF CARE (09/23/2023 12:31 PM CDT) Only the most recent of9 resultswithin the time period is included. [facility] Glucose WB/POC 225(H) 70 - 115 mg/dL 09/23/2023 12:36 PM CDT [facility] Specimen Type Cap Fingerstick 2023 12:36 PM CDT [facility] Blood BLOOD SPECIMEN / Unknown 09/23/2023 12:31 PM CDT 09/23/2023 12:36 PM CDT Val Gross MD LAB - POINT OF CARE ORDERABLES Performing Organization Address [facility]/ZIP Co de Phone Number [facility] [address] [place] [phone], [facility] [phone] * VANCOMYCIN LEVEL TROUGH (09/23/2023 11:22 AM CDT) Only the most recent of2 resultswithin the time period is included. [facility] Vancomycin Trough 11.1 10.0 - 20.0 ug/mL 09/23/2023 11:53 AM CDT [facility] Blood BLOOD SPECIMEN / Unknown Lab Venipuncture / Unknown 09/23/2023 11:22 AM CDT 09/23/2023 11:25 AM CDT Narrative [facility] - 09/23/2023 11:53 AM CDT See institution protocol. Val Gross MD LAB - CHEMI STRY ORDERABLES [address] [address], [facility] [phone] * HEMOGLOBIN A1C (09/23/2023 7:14 AM CDT) [facility] Hemoglobin A1c 5.4 <=5.6 % 09/23/2023 11:51 AM [facility] Estimated Average Glucose 108 mg/dL 09/23/2023 11:51 AM [facility] Comment: HbA1c Interpretation: Normal : < 5.7% Pre-diabetes: 5.7-6.4% Diabetes: Equal to or greater than 6.5% Test results diagnostic of diabetes should be repeated for confirmation. Treatment target values recommended by ADA and other clinical organizations should be used to evaluate metabolic control in patients. Reference: [place] Diabetes Association, Standards of Care in Diabetes -2020 In patients 70 years and older consider HbA1c target range of 7.0-7.5% (Reference: Lewis Sanchez et al. JAMDA. 2012) The Sebia assay for the measurement of HbA1c is a National Glycohemoglobin Standardization Program (NGSP) certified method. Blood BLOOD SPECIMEN / Unknown Lab Venipuncture / Unknown 09/23/2023 7:14 AM CDT 09/23/2023 7:52 AM CDT Val Gross MD LAB - CHEMI STRY ORDERABLES [address] [address], [facility] [phone] * (ABNORMAL) CBC W/O DIFFERENTIAL (09/23/2023 7:14 AM CDT) Only the most recent of7 resultswithin the time period is included. WBC 12.6(H) 4.0 - 10.7 x10E9/L 09/23/2023 8:06 AM [facility] RBC Count 4.02 3.90 - 5.20 x10E12/L 09/23/2023 8:06 AM [facility] Hemoglobin 13.2 11.9 - 15.8 g/dL 09/23/2023 8:06 AM [facility] Hematocrit 37.3 34.8 - 46.1 % 09/23/2023 8:06 AM [facility] MCV 92.8 80.0 - 98.0 fL 09/23/2023 8:06 AM [facility] MCH 32.8 26.7 - 33.6 pg 09/23/2023 8:06 AM [facility] MCHC 35.4 31.7 - 36.3 g/dL 09/23/2023 8:06 AM [facility] RDW-CV 13.2 11.3 - 14.8 % 09/23/2023 8:06 AM [facility] Platelet Count 265 150 - 420 x10E9/L 09/23/2023 8:06 AM [facility] MPV 10.2 7.8 - 11.4 fL 09/23/2023 8:06 AM [facility] Blood BLOOD SPECIMEN / Unknown Lab Venipuncture / Unknown 09/23/2023 7:14 AM CDT 09/23/2023 7:52 AM CDT Shree Espinoza MD LAB - HEMATOLOGY ORD ERABLES [address] [address] [phone] * (ABNORMAL) BASIC METABOLIC PANEL (CALCIUM TOTAL) (09/23/2023 7:14 AM CDT) Only the most recent of7 resultswithin the time period is included. BUN 15 7 - 26 mg/dL 09/23/2023 8:16 AM [facility] Creatinine 0.57 0.56 - 0.96 mg/dL 09/23/2023 8:16 AM [facility] Sodium 143 136 - 145 mmol/L 09/23/2023 8:16 AM [facility] Potassium 3.0(L) 3.5 - 4.5 mmol/L 09/23/2023 8:16 AM [facility] Chloride 110(H) 98 - 107 mmol/L 09/23/2023 8:16 AM [facility] CO2 24 22 - 29 mmol/L 09/23/2023 8:16 AM [facility] Glucose 176(H) 70 - 115 mg/dL 09/23/2023 8:16 AM [facility] Calcium 8.0(L) 8.4 - 10.2 mg/dL 09/23/2023 8:16 AM CDT [facility] Anion Gap 9 6 - 16 09/23/2023 8:16 AM CDT [facility] BUN/Creatinine Ratio 26(H) 7 - 23 09/23/2023 8:16 AM CDT [facility] Osmolality Calculated 301(H) 275 - 295 mOsm/kg 09/23/2023 8:16 AM T [facility] eGFR by CKD-EPI >90 >=90 mL/min/1.7 3 m2 09/23/2023 8:16 AM CDT [facility] Blood BLOOD SPECIMEN / Unknown Lab Venipuncture / Unknown 09/23/2023 7:14 AM CDT 09/23/2023 7:52 AM CDT Shree Espinoza MD LAB - CHEMISTRY HECTOR WELCH Performing Organization Address City/[facility]/ZIP Co de Phone Number [address] [address], [facility] [phone] * (ABNORMAL) PHOSPHORUS BLOOD (09/23/2023 7:14 AM CDT) Only the most recent of7 resultswithin the time period is included. Phosphorus 1.7(L) 2.9 - 5.1 mg/dL 09/23/2023 8:16 AM CDT [facility] Blood BLOOD SPECIMEN / Unknown Lab Venipuncture / Unknown 09/23/2023 7:14 AM CDT 09/23/2023 7:52 AM CDT Shree Espinoza MD LAB - CHEMISTRY HECTOR WELCH [address] [address], [place] [phone] * MAGNESIUM BLOOD (09/23/2023 7:14 AM CDT) Only the most recent of8 resultswithin the time period is included. Magnesium 1.6 1.6 - 2.6 mg/dL 09/23/2023 8:16 AM CDT [facility] Blood BLOOD SPECIMEN / Unknown Lab Venipuncture / Unknown 09/23/2023 7:14 AM CDT 09/23/2023 7:52 AM CDT Shree Espinoza MD LAB - CHEMISTRY HECTOR Lange Organization Address City/State/ZIP Co de Phone Number [facility] [address] [place] [address], [facility] [phone] * MRI BRAIN WO CONTRAST (09/22/2023 5:26 PM CDT) Anatomical Region Laterality Modality Head Magnetic Resonan ce 09/23/2023 7:10 AM CDT Impressions 09/23/2023 8:59 AM CDT IMPRESSION: No acute intracranial abnormality. > Dictated by Jagjit Ceballos DO (residential specialist). I, Emerald Bess MD have personally reviewed and interpreted this examination/study. > Interpreting Provider: Emerald Bess MD on 09/23/2023 8:59 AM Narrative 09/23/2023 8:59 AM CDT PROCEDURE: MRI BRAIN WO CONTRAST, DATE/TIME OF EXAM: 09/22/2023 5:27 PM, LOCATION [facility] INDICATION: M19.90: Arthritis ADDITIONAL CLINICAL INFORMATION: Ordering Provider Reason For Exam: r/o stroke. Patient was not on telemetry and anticoagulation for Afib prior to yesterday EXAMINATION: Magnetic resonance imaging (MRI) of the brain without contrast TECHNIQUE: MRI of the brain was performed without intravenous contrast according to standard protocol. COMPARISON: MRI brain from 09/15/2023 FINDINGS: No evidence of acute cerebral infarction is seen. No evidence of acute or chronic hemorrhage is identified. There is mild cerebral volume loss with associated ex vacuo ventricular dilatation. No mass effect or midline shift is seen. Mild periventricular white matter FLAIR hyperintensities are nonspecific, but can be seen in the setting of chronic small vessel ischemic disease. Chronic lacunar infarcts again noted in the bilateral basal ganglia. The sella appears empty. The corpus callosum appears normal. The posterior fossa, brainstem, and craniocervical junction appear normal. There is a left-sided cataract extraction with lens replacement. The right orbit is normal. The paranasal sinuses are clear. Minimal bilateral mastoid effusions. Normal flow voids are demonstrated in the carotid arteries and basilar artery. The calvarium appears normal. [id number] degenerative changes in the partially visualized cervical spine. Procedure Note Emerald Bess MD - 09/23/2023 PROCEDURE: MRI BRAIN WO CONTRAST, DATE/TIME OF EXAM: 09/22/2023 5:27PM, LOCATION [facility] INDICATION: M19.90: Arthritis ADDITIONAL CLINICAL INFORMATION: Ordering Provider Reason For Exam: r/o stroke. Patient was not on telemetry and anticoagulation for Afib prior to yesterday EXAMINATION: Magnetic resonance imaging (MRI) of the brain withoutcontrast TECHNIQUE: MRI of the brain was performed without intravenous contrast according to standard protocol. COMPARISON: MRI brain from 09/15/2023 FINDINGS: No evidence of acute cerebral infarction is seen. No evidence of acuteor chronic hemorrhage is identified. There is mild cerebral volume losswith associated ex vacuo ventricular dilatation. No mass effect or midlineshift is seen. Mild periventricular white matter FLAIR hyperintensities are nonspecific, but can be seen in the setting of chronic small vessel ischemic disease. Chronic lacunar infarcts again noted in the bilateral basal ganglia. The sella appears empty. The corpus callosum appearsnormal. The posterior fossa, brainstem, and craniocervical junction appearnormal. There is a left-sided cataract extraction with lens replacement. Theright orbit is normal. The paranasal sinuses are clear. Minimal bilateralmastoid effusions. Normal flow voids are demonstrated in the carotid arteriesand basilar artery. The calvarium appears normal. Tayr-iu-qmawvxax degenerative changes in the partially visualizedcervical spine. IMPRESSION: No acute intracranial abnormality. > Dictated by Jagjit Ceballos DO (residential specialist). I, Emerald Bess MD have personally reviewed and interpreted this examination/study. > Interpreting Provider: Emerald Bess MD on 09/23/2023 8:59 AM Val Gross MD MR ORDERABL ES * CT LUMBAR SPINE WO CONTRAST (09/21/2023 7:59 PM CDT) Anatomical Region Laterality Modality Spine Computed Tomogra phy 09/21/2023 8:09 PM CDT Impressions 09/22/2023 3:05 AM CDT IMPRESSION: 1.No acute fracture or traumatic malalignment of the cervical, thoracic, or lumbar spine. 2.Multilevel degenerative changes throughout the spine resulting in high-grade spinal canal stenosis at the L4-L5 level of the lumbar spine and varying degrees of neuroforaminal narrowing of the cervical and lumbar spine as described. 3.Right thyroid lobe with an enlarged centrally calcified hypodense nodule measuring up to 2.8 cm. Recommend follow-up nonemergent outpatient thyroid ultrasound if not recently performed. > Dictated by Ralf Mc D.O. - Diagnostic Guest Experience Manager. I, Chris Villa MD, PhD have personally reviewed and interpreted this examination/study. > Interpreting Provider: Chris Villa MD, PhD on 09/22/2023 3:05 AM Narrative 09/22/2023 3:05 AM CDT EXAM: CT CERVICAL SPINE WO CONTRAST, CT THORACIC SPINE WO CONTRAST, CT LUMBAR SPINE WO CONTRAST, DATE/TIME OF EXAM: 09/21/2023 8:00 PM, LOCATION: [facility] HISTORY: M54.9: Back pain, subacute ADDITIONAL CLINICAL INFORMATION: Ordering Provider Reason For Exam: Cervical radiculopathy (accession [id number]), myelopathy/radiculopathy (accession [id number]), radiculopathy/myelopathy? (accession [id number]) EXAMINATION: CT scan of the cervical, thoracic, and lumbar spine without intravenous contrast TECHNIQUE: CT of the cervical, thoracic, and lumbar spine was performed without intravenous contrast according to standard protocol. CT dose reduction technique was used, including Automated Exposure Control. COMPARISON: No prior similar studies are available for comparison. FINDINGS: CERVICAL SPINE: Examination degraded by mild motion artifact. Within this limitation, the following assessment is made: ALIGNMENT: Mild levoconvex curvature and reversal of cervical spine lordotic curvature with degenerative-related mild grade 1 anterolisthesis of C7 on T1. No traumatic malalignment. ATLANTOAXIAL JOINT: The dens is intact, the lateral masses of C1 are normally aligned relative to C2, and the atlantodental interval is normal. BONES: Vertebral body heights are maintained without evidence of acute fracture. Osseous structures are demineralized. DISCS: Multilevel degenerative discogenic changes with notable leoidqdd-yq-pbdlnk disc space narrowing at the C3-C4 level where there is partial ankylosis of the C3 and C4 vertebral bodies and dlrg-gq-ivhnljlb disc space narrowing elsewhere. DEGENERATIVE CHANGES: Overall moderate multilevel degenerative changes, characterized by varying degrees of anterior endplate osteophytes, posterior disc bulges/osteophyte complexes, facet arthropathy, and uncovertebral joint hypertrophy. Osseous fusion of the right greater than left C3-C4 facets. SPINAL CANAL/NEUROFORAMEN: Multilevel mild spinal canal stenoses from the C3-C4 through the C 67 levels secondary to posterior disc bulges/osteophyte complexes. Multilevel neuroforaminal narrowing that is notably qqep-le-qpfzosbv at the bilateral C3-C4 level, vmkevqcl-dl-ipjjfs at the left C4-C5 level, and moderate at the left C5-C6 level secondary to uncovertebral joint hypertrophy and facet arthropathy. SOFT TISSUES: No prevertebral soft tissue swelling. Posterior paraspinal soft tissues are within normal limits for age. Right thyroid lobe with an enlarged centrally calcified hypodense nodule measuring up to 2.8 cm (5/195). OTHER: Mild degenerative changes of the right temporomandibular joint. Partially imaged portions of the lung apices are clear. THORACIC SPINE: Examination degraded by mild motion artifact. Within this limitation, the following assessment is made: ALIGNMENT: Mild dextroconvex curvature of the thoracic spine without significant listhesis. No traumatic malalignment. BONES: Vertebral body heights are maintained without evidence of acute fracture. Osseous structures are demineralized. DISCS: Normal. DEGENERATIVE CHANGES: Overall minimal multilevel degenerative changes. SPINAL CANAL/NEUROFORAMEN: No significant osseous spinal canal stenosis or neuroforaminal narrowing. SOFT TISSUES: Anterior and posterior paraspinal soft tissues are within normal limits for age. OTHER: Minimal dependent subsegmental atelectasis of the lung bases. Minimal calcific atherosclerosis of the thoracic aorta. Evidence of a gastric lap band, which is incompletely assessed on this examination. Surgically absent gallbladder. LUMBAR SPINE: ALIGNMENT: Mild levocurvature of the lumbar spine with degenerative-related minimal retrolisthesis of L2 on L3. No traumatic malalignment. BONES: Vertebral body heights are maintained without evidence of acute fracture. Osseous structures are demineralized. DISCS: Multilevel degenerative discogenic changes with notable severe disc space narrowing, vacuum disc phenomenon, and endplate changes at the L2-L3 level and mild disc space narrowing elsewhere. Vacuum disc phenomenon at the L4-L5 level. DEGENERATIVE CHANGES: Overall moderate multilevel degenerative change, characterized by varying degrees of posterior disc bulges, ligamentum flavum hypertrophy, and facet arthropathy. SPINAL CANAL/NEUROFORAMEN: Multilevel spinal canal stenoses that is notably mild at the L2-L3 and L3-L4 levels and vforzddh-fb-kzmnxf at the L4-L5 level secondary to posterior disc bulges, ligamentum flavum hypertrophy, and bilateral facet arthropathy. Multilevel neuroforaminal narrowing that is notably moderate at the right L2-L3 and left L5-S1 levels and ymuc-es-npclbcyj elsewhere. SOFT TISSUES: Symmetric fatty atrophy of the posterior paraspinal musculature. OTHER: Multiple scattered sigmoid colon diverticula without evidence of diverticulitis. Minimal calcific atherosclerosis of the abdominal aorta. Procedure Note Chris Villa MD - 09/22/2023 EXAM: CT CERVICAL SPINE WO CONTRAST, CT THORACIC SPINE WO CONTRAST, CT LUMBAR SPINE WO CONTRAST, DATE/TIME OF EXAM: 09/21/2023 8:00 PM, LOCATION: [facility] HISTORY: M54.9: Back pain, subacute ADDITIONAL CLINICAL INFORMATION: Ordering Provider Reason For Exam: Cervical radiculopathy (accession [id number]), myelopathy/radiculopathy (accession [id number]), radiculopathy/myelopathy? (accession [id number]) EXAMINATION: CT scan of the cervical, thoracic, and lumbar spine without intravenous contrast TECHNIQUE: CT of the cervical, thoracic, and lumbar spine was performed without intravenous contrast according to standard protocol. CT dose reduction technique was used, including Automated Exposure Control. COMPARISON: No prior similar studies are available for comparison. FINDINGS: CERVICAL SPINE: Examination degraded by mild motion artifact. Within this limitation,the following assessment is made: ALIGNMENT: Mild levoconvex curvature and reversal of cervical spine lordotic curvature with degenerative-related mild grade 1anterolisthesis of C7 on T1. No traumatic malalignment. ATLANTOAXIAL JOINT: The dens is intact, the lateral masses of C1 are normally aligned relative to C2, and the atlantodental interval is normal. BONES: Vertebral body heights are maintained without evidence of acute fracture. Osseous structures are demineralized. DISCS: Multilevel degenerative discogenic changes with notable wvdawjir-oo-btmzga disc space narrowing at the C3-C4 level where thereis partial ankylosis of the C3 and C4 vertebral bodies and kfjn-uk-rzzqiuwc disc space narrowing elsewhere. DEGENERATIVE CHANGES: Overall moderate multilevel degenerative changes, characterized by varying degrees of anterior endplate osteophytes, posterior disc bulges/osteophyte complexes, facet arthropathy, and uncovertebral joint hypertrophy. Osseous fusion of the right greaterthan left C3-C4 facets. SPINAL CANAL/NEUROFORAMEN: Multilevel mild spinal canal stenoses fromthe C3-C4 through the C 67 levels secondary to posterior discbulges/osteophyte complexes. Multilevel neuroforaminal narrowing that is notably mfjr-hx-gkngyhbe at the bilateral C3-C4 level, flatbccy-bb-bizxwj at the left C4-C5 level, and moderate at the left C5-C6 level secondary to uncovertebral joint hypertrophy and facet arthropathy. SOFT TISSUES: No prevertebral soft tissue swelling. Posterior paraspinal soft tissues are within normal limits for age. Right thyroid lobe withan enlarged centrally calcified hypodense nodule measuring up to 2.8 cm (5/195). OTHER: Mild degenerative changes of the right temporomandibular joint. Partially imaged portions of the lung apices are clear. THORACIC SPINE: Examination degraded by mild motion artifact. Within this limitation,the following assessment is made: ALIGNMENT: Mild dextroconvex curvature of the thoracic spine without significant listhesis. No traumatic malalignment. BONES: Vertebral body heights are maintained without evidence of acute fracture. Osseous structures are demineralized. DISCS: Normal. DEGENERATIVE CHANGES: Overall minimal multilevel degenerative changes. SPINAL CANAL/NEUROFORAMEN: No significant osseous spinal canal stenosisor neuroforaminal narrowing. SOFT TISSUES: Anterior and posterior paraspinal soft tissues are within normal limits for age. OTHER: Minimal dependent subsegmental atelectasis of the lung bases. Minimal calcific atherosclerosis of the thoracic aorta. Evidence of a gastric lap band, which is incompletely assessed on this examination. Surgically absent gallbladder. LUMBAR SPINE: ALIGNMENT: Mild levocurvature of the lumbar spine withdegenerative-related minimal retrolisthesis of L2 on L3. No traumatic malalignment. BONES: Vertebral body heights are maintained without evidence of acute fracture. Osseous structures are demineralized. DISCS: Multilevel degenerative discogenic changes with notable severedisc space narrowing, vacuum disc phenomenon, and endplate changes at theL2-L3 level and mild disc space narrowing elsewhere. Vacuum disc phenomenon at the L4-L5 level. DEGENERATIVE CHANGES: Overall moderate multilevel degenerative change, characterized by varying degrees of posterior disc bulges, ligamentum flavum hypertrophy, and facet arthropathy. SPINAL CANAL/NEUROFORAMEN: Multilevel spinal canal stenoses that isnotably mild at the L2-L3 and L3-L4 levels and tqltrtcm-ec-amrxey at the L4-L5 level secondary to posterior disc bulges, ligamentum flavum hypertrophy, and bilateral facet arthropathy. Multilevel neuroforaminal narrowingthat is notably moderate at the right L2-L3 and left L5-S1 levels and qkzo-mi-zlviofyy elsewhere. SOFT TISSUES: Symmetric fatty atrophy of the posterior paraspinal musculature. OTHER: Multiple scattered sigmoid colon diverticula without evidence of diverticulitis. Minimal calcific atherosclerosis of the abdominal aorta. IMPRESSION: 1.No acute fracture or traumatic malalignment of the cervical, thoracic,or lumbar spine. 2.Multilevel degenerative changes throughout the spine resulting in high-grade spinal canal stenosis at the L4-L5 level of the lumbar spineand varying degrees of neuroforaminal narrowing of the cervical and lumbar spine as described. 3.Right thyroid lobe with an enlarged centrally calcified hypodensenodule measuring up to 2.8 cm. Recommend follow-up nonemergent outpatientthyroid ultrasound if not recently performed. > Dictated by Elis Young.Mary Ann. - Diagnostic Guest Experience Manager. I, Chris Villa MD, PhD have personally reviewed and interpreted this examination/study. > Interpreting Provider: Chris Villa MD, PhD on 09/22/2023 3:05 AM Val Gross MD CT ORDERABL ES * CT THORACIC SPINE WO CONTRAST (09/21/2023 7:59 PM CDT) Anatomical Region Laterality Modality Spine Computed Tomogra phy 09/21/2023 8:09 PM CDT Impressions 09/22/2023 3:05 AM CDT IMPRESSION: 1.No acute fracture or traumatic malalignment of the cervical, thoracic, or lumbar spine. 2.Multilevel degenerative changes throughout the spine resulting in high-grade spinal canal stenosis at the L4-L5 level of the lumbar spine and varying degrees of neuroforaminal narrowing of the cervical and lumbar spine as described. 3.Right thyroid lobe with an enlarged centrally calcified hypodense nodule measuring up to 2.8 cm. Recommend follow-up nonemergent outpatient thyroid ultrasound if not recently performed. > Dictated by Ralf Mc D.O. - Diagnostic Guest Experience Manager. I, Chris Villa MD, PhD have personally reviewed and interpreted this examination/study. > Interpreting Provider: Chris Villa MD, PhD on 09/22/2023 3:05 AM Narrative 09/22/2023 3:05 AM CDT EXAM: CT CERVICAL SPINE WO CONTRAST, CT THORACIC SPINE WO CONTRAST, CT LUMBAR SPINE WO CONTRAST, DATE/TIME OF EXAM: 09/21/2023 8:00 PM, LOCATION: [facility] HISTORY: M54.9: Back pain, subacute ADDITIONAL CLINICAL INFORMATION: Ordering Provider Reason For Exam: Cervical radiculopathy (accession [id number]), myelopathy/radiculopathy (accession [id number]), radiculopathy/myelopathy? (accession [id number]) EXAMINATION: CT scan of the cervical, thoracic, and lumbar spine without intravenous contrast TECHNIQUE: CT of the cervical, thoracic, and lumbar spine was performed without intravenous contrast according to standard protocol. CT dose reduction technique was used, including Automated Exposure Control. COMPARISON: No prior similar studies are available for comparison. FINDINGS: CERVICAL SPINE: Examination degraded by mild motion artifact. Within this limitation, the following assessment is made: ALIGNMENT: Mild levoconvex curvature and reversal of cervical spine lordotic curvature with degenerative-related mild grade 1 anterolisthesis of C7 on T1. No traumatic malalignment. ATLANTOAXIAL JOINT: The dens is intact, the lateral masses of C1 are normally aligned relative to C2, and the atlantodental interval is normal. BONES: Vertebral body heights are maintained without evidence of acute fracture. Osseous structures are demineralized. DISCS: Multilevel degenerative discogenic changes with notable ijlpifun-zd-illnwl disc space narrowing at the C3-C4 level where there is partial ankylosis of the C3 and C4 vertebral bodies and wfwu-mo-omofpyfe disc space narrowing elsewhere. DEGENERATIVE CHANGES: Overall moderate multilevel degenerative changes, characterized by varying degrees of anterior endplate osteophytes, posterior disc bulges/osteophyte complexes, facet arthropathy, and uncovertebral joint hypertrophy. Osseous fusion of the right greater than left C3-C4 facets. SPINAL CANAL/NEUROFORAMEN: Multilevel mild spinal canal stenoses from the C3-C4 through the C 67 levels secondary to posterior disc bulges/osteophyte complexes. Multilevel neuroforaminal narrowing that is notably dfsw-xd-uadlgrib at the bilateral C3-C4 level, zvqqleln-cq-xyxezb at the left C4-C5 level, and moderate at the left C5-C6 level secondary to uncovertebral joint hypertrophy and facet arthropathy. SOFT TISSUES: No prevertebral soft tissue swelling. Posterior paraspinal soft tissues are within normal limits for age. Right thyroid lobe with an enlarged centrally calcified hypodense nodule measuring up to 2.8 cm (5/195). OTHER: Mild degenerative changes of the right temporomandibular joint. Partially imaged portions of the lung apices are clear. THORACIC SPINE: Examination degraded by mild motion artifact. Within this limitation, the following assessment is made: ALIGNMENT: Mild dextroconvex curvature of the thoracic spine without significant listhesis. No traumatic malalignment. BONES: Vertebral body heights are maintained without evidence of acute fracture. Osseous structures are demineralized. DISCS: Normal. DEGENERATIVE CHANGES: Overall minimal multilevel degenerative changes. SPINAL CANAL/NEUROFORAMEN: No significant osseous spinal canal stenosis or neuroforaminal narrowing. SOFT TISSUES: Anterior and posterior paraspinal soft tissues are within normal limits for age. OTHER: Minimal dependent subsegmental atelectasis of the lung bases. Minimal calcific atherosclerosis of the thoracic aorta. Evidence of a gastric lap band, which is incompletely assessed on this examination. Surgically absent gallbladder. LUMBAR SPINE: ALIGNMENT: Mild levocurvature of the lumbar spine with degenerative-related minimal retrolisthesis of L2 on L3. No traumatic malalignment. BONES: Vertebral body heights are maintained without evidence of acute fracture. Osseous structures are demineralized. DISCS: Multilevel degenerative discogenic changes with notable severe disc space narrowing, vacuum disc phenomenon, and endplate changes at the L2-L3 level and mild disc space narrowing elsewhere. Vacuum disc phenomenon at the L4-L5 level. DEGENERATIVE CHANGES: Overall moderate multilevel degenerative change, characterized by varying degrees of posterior disc bulges, ligamentum flavum hypertrophy, and facet arthropathy. SPINAL CANAL/NEUROFORAMEN: Multilevel spinal canal stenoses that is notably mild at the L2-L3 and L3-L4 levels and zwjjhmfl-fz-btueyb at the L4-L5 level secondary to posterior disc bulges, ligamentum flavum hypertrophy, and bilateral facet arthropathy. Multilevel neuroforaminal narrowing that is notably moderate at the right L2-L3 and left L5-S1 levels and nwhe-ss-eadbiszz elsewhere. SOFT TISSUES: Symmetric fatty atrophy of the posterior paraspinal musculature. OTHER: Multiple scattered sigmoid colon diverticula without evidence of diverticulitis. Minimal calcific atherosclerosis of the abdominal aorta. Procedure Note Chris Villa MD - 09/22/2023 EXAM: CT CERVICAL SPINE WO CONTRAST, CT THORACIC SPINE WO CONTRAST, CT LUMBAR SPINE WO CONTRAST, DATE/TIME OF EXAM: 09/21/2023 8:00 PM, LOCATION: [facility] HISTORY: M54.9: Back pain, subacute ADDITIONAL CLINICAL INFORMATION: Ordering Provider Reason For Exam: Cervical radiculopathy (accession [id number]), myelopathy/radiculopathy (accession [id number]), radiculopathy/myelopathy? (accession [id number]) EXAMINATION: CT scan of the cervical, thoracic, and lumbar spine without intravenous contrast TECHNIQUE: CT of the cervical, thoracic, and lumbar spine was performed without intravenous contrast according to standard protocol. CT dose reduction technique was used, including Automated Exposure Control. COMPARISON: No prior similar studies are available for comparison. FINDINGS: CERVICAL SPINE: Examination degraded by mild motion artifact. Within this limitation,the following assessment is made: ALIGNMENT: Mild levoconvex curvature and reversal of cervical spine lordotic curvature with degenerative-related mild grade 1anterolisthesis of C7 on T1. No traumatic malalignment. ATLANTOAXIAL JOINT: The dens is intact, the lateral masses of C1 are normally aligned relative to C2, and the atlantodental interval is normal. BONES: Vertebral body heights are maintained without evidence of acute fracture. Osseous structures are demineralized. DISCS: Multilevel degenerative discogenic changes with notable lisedapl-sf-usljrz disc space narrowing at the C3-C4 level where thereis partial ankylosis of the C3 and C4 vertebral bodies and qrkg-qt-pgfqijnd disc space narrowing elsewhere. DEGENERATIVE CHANGES: Overall moderate multilevel degenerative changes, characterized by varying degrees of anterior endplate osteophytes, posterior disc bulges/osteophyte complexes, facet arthropathy, and uncovertebral joint hypertrophy. Osseous fusion of the right greaterthan left C3-C4 facets. SPINAL CANAL/NEUROFORAMEN: Multilevel mild spinal canal stenoses fromthe C3-C4 through the C 67 levels secondary to posterior discbulges/osteophyte complexes. Multilevel neuroforaminal narrowing that is notably gvlx-ly-kwcixtgm at the bilateral C3-C4 level, wwjhsjyc-kc-ipvega at the left C4-C5 level, and moderate at the left C5-C6 level secondary to uncovertebral joint hypertrophy and facet arthropathy. SOFT TISSUES: No prevertebral soft tissue swelling. Posterior paraspinal soft tissues are within normal limits for age. Right thyroid lobe withan enlarged centrally calcified hypodense nodule measuring up to 2.8 cm (5/195). OTHER: Mild degenerative changes of the right temporomandibular joint. Partially imaged portions of the lung apices are clear. THORACIC SPINE: Examination degraded by mild motion artifact. Within this limitation,the following assessment is made: ALIGNMENT: Mild dextroconvex curvature of the thoracic spine without significant listhesis. No traumatic malalignment. BONES: Vertebral body heights are maintained without evidence of acute fracture. Osseous structures are demineralized. DISCS: Normal. DEGENERATIVE CHANGES: Overall minimal multilevel degenerative changes. SPINAL CANAL/NEUROFORAMEN: No significant osseous spinal canal stenosisor neuroforaminal narrowing. SOFT TISSUES: Anterior and posterior paraspinal soft tissues are within normal limits for age. OTHER: Minimal dependent subsegmental atelectasis of the lung bases. Minimal calcific atherosclerosis of the thoracic aorta. Evidence of a gastric lap band, which is incompletely assessed on this examination. Surgically absent gallbladder. LUMBAR SPINE: ALIGNMENT: Mild levocurvature of the lumbar spine withdegenerative-related minimal retrolisthesis of L2 on L3. No traumatic malalignment. BONES: Vertebral body heights are maintained without evidence of acute fracture. Osseous structures are demineralized. DISCS: Multilevel degenerative discogenic changes with notable severedisc space narrowing, vacuum disc phenomenon, and endplate changes at theL2-L3 level and mild disc space narrowing elsewhere. Vacuum disc phenomenon at the L4-L5 level. DEGENERATIVE CHANGES: Overall moderate multilevel degenerative change, characterized by varying degrees of posterior disc bulges, ligamentum flavum hypertrophy, and facet arthropathy. SPINAL CANAL/NEUROFORAMEN: Multilevel spinal canal stenoses that isnotably mild at the L2-L3 and L3-L4 levels and gvzcfkrn-lu-xkcege at the L4-L5 level secondary to posterior disc bulges, ligamentum flavum hypertrophy, and bilateral facet arthropathy. Multilevel neuroforaminal narrowingthat is notably moderate at the right L2-L3 and left L5-S1 levels and wvns-lm-ncanbvil elsewhere. SOFT TISSUES: Symmetric fatty atrophy of the posterior paraspinal musculature. OTHER: Multiple scattered sigmoid colon diverticula without evidence of diverticulitis. Minimal calcific atherosclerosis of the abdominal aorta. IMPRESSION: 1.No acute fracture or traumatic malalignment of the cervical, thoracic,or lumbar spine. 2.Multilevel degenerative changes throughout the spine resulting in high-grade spinal canal stenosis at the L4-L5 level of the lumbar spineand varying degrees of neuroforaminal narrowing of the cervical and lumbar spine as described. 3.Right thyroid lobe with an enlarged centrally calcified hypodensenodule measuring up to 2.8 cm. Recommend follow-up nonemergent outpatientthyroid ultrasound if not recently performed. > Dictated by Ralf Mc D.O. - Diagnostic Guest Experience Manager. Chris Coy MD, PhD have personally reviewed and interpreted this examination/study. > Interpreting Provider: Chris Villa MD, PhD on 09/22/2023 3:05 AM Val Gross MD CT ORDERABL ES * CT CERVICAL SPINE WO CONTRAST (09/21/2023 7:59 PM CDT) Anatomical Region Laterality Modality Spine Computed Tomogra phy 09/21/2023 8:09 PM CDT Impressions 09/22/2023 3:05 AM CDT IMPRESSION: 1.No acute fracture or traumatic malalignment of the cervical, thoracic, or lumbar spine. 2.Multilevel degenerative changes throughout the spine resulting in high-grade spinal canal stenosis at the L4-L5 level of the lumbar spine and varying degrees of neuroforaminal narrowing of the cervical and lumbar spine as described. 3.Right thyroid lobe with an enlarged centrally calcified hypodense nodule measuring up to 2.8 cm. Recommend follow-up nonemergent outpatient thyroid ultrasound if not recently performed. > Dictated by Ralf Mc D.O. - Diagnostic Guest Experience Manager. Chris Coy MD, PhD have personally reviewed and interpreted this examination/study. > Interpreting Provider: Chris Villa MD, PhD on 09/22/2023 3:05 AM Narrative 09/22/2023 3:05 AM CDT EXAM: CT CERVICAL SPINE WO CONTRAST, CT THORACIC SPINE WO CONTRAST, CT LUMBAR SPINE WO CONTRAST, DATE/TIME OF EXAM: 09/21/2023 8:00 PM, LOCATION: [facility] HISTORY: M54.9: Back pain, subacute ADDITIONAL CLINICAL INFORMATION: Ordering Provider Reason For Exam: Cervical radiculopathy (accession [id number]), myelopathy/radiculopathy (accession [id number]), radiculopathy/myelopathy? (accession [id number]) EXAMINATION: CT scan of the cervical, thoracic, and lumbar spine without intravenous contrast TECHNIQUE: CT of the cervical, thoracic, and lumbar spine was performed without intravenous contrast according to standard protocol. CT dose reduction technique was used, including Automated Exposure Control. COMPARISON: No prior similar studies are available for comparison. FINDINGS: CERVICAL SPINE: Examination degraded by mild motion artifact. Within this limitation, the following assessment is made: ALIGNMENT: Mild levoconvex curvature and reversal of cervical spine lordotic curvature with degenerative-related mild grade 1 anterolisthesis of C7 on T1. No traumatic malalignment. ATLANTOAXIAL JOINT: The dens is intact, the lateral masses of C1 are normally aligned relative to C2, and the atlantodental interval is normal. BONES: Vertebral body heights are maintained without evidence of acute fracture. Osseous structures are demineralized. DISCS: Multilevel degenerative discogenic changes with notable cipiwfwn-uh-ktnlkw disc space narrowing at the C3-C4 level where there is partial ankylosis of the C3 and C4 vertebral bodies and puve-ar-qdimhjvi disc space narrowing elsewhere. DEGENERATIVE CHANGES: Overall moderate multilevel degenerative changes, characterized by varying degrees of anterior endplate osteophytes, posterior disc bulges/osteophyte complexes, facet arthropathy, and uncovertebral joint hypertrophy. Osseous fusion of the right greater than left C3-C4 facets. SPINAL CANAL/NEUROFORAMEN: Multilevel mild spinal canal stenoses from the C3-C4 through the C 67 levels secondary to posterior disc bulges/osteophyte complexes. Multilevel neuroforaminal narrowing that is notably frmw-nz-wpthduee at the bilateral C3-C4 level, lwncxbab-ma-ecssxt at the left C4-C5 level, and moderate at the left C5-C6 level secondary to uncovertebral joint hypertrophy and facet arthropathy. SOFT TISSUES: No prevertebral soft tissue swelling. Posterior paraspinal soft tissues are within normal limits for age. Right thyroid lobe with an enlarged centrally calcified hypodense nodule measuring up to 2.8 cm (5/195). OTHER: Mild degenerative changes of the right temporomandibular joint. Partially imaged portions of the lung apices are clear. THORACIC SPINE: Examination degraded by mild motion artifact. Within this limitation, the following assessment is made: ALIGNMENT: Mild dextroconvex curvature of the thoracic spine without significant listhesis. No traumatic malalignment. BONES: Vertebral body heights are maintained without evidence of acute fracture. Osseous structures are demineralized. DISCS: Normal. DEGENERATIVE CHANGES: Overall minimal multilevel degenerative changes. SPINAL CANAL/NEUROFORAMEN: No significant osseous spinal canal stenosis or neuroforaminal narrowing. SOFT TISSUES: Anterior and posterior paraspinal soft tissues are within normal limits for age. OTHER: Minimal dependent subsegmental atelectasis of the lung bases. Minimal calcific atherosclerosis of the thoracic aorta. Evidence of a gastric lap band, which is incompletely assessed on this examination. Surgically absent gallbladder. LUMBAR SPINE: ALIGNMENT: Mild levocurvature of the lumbar spine with degenerative-related minimal retrolisthesis of L2 on L3. No traumatic malalignment. BONES: Vertebral body heights are maintained without evidence of acute fracture. Osseous structures are demineralized. DISCS: Multilevel degenerative discogenic changes with notable severe disc space narrowing, vacuum disc phenomenon, and endplate changes at the L2-L3 level and mild disc space narrowing elsewhere. Vacuum disc phenomenon at the L4-L5 level. DEGENERATIVE CHANGES: Overall moderate multilevel degenerative change, characterized by varying degrees of posterior disc bulges, ligamentum flavum hypertrophy, and facet arthropathy. SPINAL CANAL/NEUROFORAMEN: Multilevel spinal canal stenoses that is notably mild at the L2-L3 and L3-L4 levels and hekcbgmq-eg-hmyfdv at the L4-L5 level secondary to posterior disc bulges, ligamentum flavum hypertrophy, and bilateral facet arthropathy. Multilevel neuroforaminal narrowing that is notably moderate at the right L2-L3 and left L5-S1 levels and sqna-kz-ktbdbnhq elsewhere. SOFT TISSUES: Symmetric fatty atrophy of the posterior paraspinal musculature. OTHER: Multiple scattered sigmoid colon diverticula without evidence of diverticulitis. Minimal calcific atherosclerosis of the abdominal aorta. Procedure Note Chris Villa MD - 09/22/2023 EXAM: CT CERVICAL SPINE WO CONTRAST, CT THORACIC SPINE WO CONTRAST, CT LUMBAR SPINE WO CONTRAST, DATE/TIME OF EXAM: 09/21/2023 8:00 PM, LOCATION: [facility] HISTORY: M54.9: Back pain, subacute ADDITIONAL CLINICAL INFORMATION: Ordering Provider Reason For Exam: Cervical radiculopathy (accession [id number]), myelopathy/radiculopathy (accession [id number]), radiculopathy/myelopathy? (accession [id number]) EXAMINATION: CT scan of the cervical, thoracic, and lumbar spine without intravenous contrast TECHNIQUE: CT of the cervical, thoracic, and lumbar spine was performed without intravenous contrast according to standard protocol. CT dose reduction technique was used, including Automated Exposure Control. COMPARISON: No prior similar studies are available for comparison. FINDINGS: CERVICAL SPINE: Examination degraded by mild motion artifact. Within this limitation,the following assessment is made: ALIGNMENT: Mild levoconvex curvature and reversal of cervical spine lordotic curvature with degenerative-related mild grade 1anterolisthesis of C7 on T1. No traumatic malalignment. ATLANTOAXIAL JOINT: The dens is intact, the lateral masses of C1 are normally aligned relative to C2, and the atlantodental interval is normal. BONES: Vertebral body heights are maintained without evidence of acute fracture. Osseous structures are demineralized. DISCS: Multilevel degenerative discogenic changes with notable rbrgozif-wt-gadyal disc space narrowing at the C3-C4 level where thereis partial ankylosis of the C3 and C4 vertebral bodies and gvul-ub-bjnxrsmh disc space narrowing elsewhere. DEGENERATIVE CHANGES: Overall moderate multilevel degenerative changes, characterized by varying degrees of anterior endplate osteophytes, posterior disc bulges/osteophyte complexes, facet arthropathy, and uncovertebral joint hypertrophy. Osseous fusion of the right greaterthan left C3-C4 facets. SPINAL CANAL/NEUROFORAMEN: Multilevel mild spinal canal stenoses fromthe C3-C4 through the C 67 levels secondary to posterior discbulges/osteophyte complexes. Multilevel neuroforaminal narrowing that is notably lwpm-sc-gaeksfhd at the bilateral C3-C4 level, ganzermt-nh-tuxhrh at the left C4-C5 level, and moderate at the left C5-C6 level secondary to uncovertebral joint hypertrophy and facet arthropathy. SOFT TISSUES: No prevertebral soft tissue swelling. Posterior paraspinal soft tissues are within normal limits for age. Right thyroid lobe withan enlarged centrally calcified hypodense nodule measuring up to 2.8 cm (5/195). OTHER: Mild degenerative changes of the right temporomandibular joint. Partially imaged portions of the lung apices are clear. THORACIC SPINE: Examination degraded by mild motion artifact. Within this limitation,the following assessment is made: ALIGNMENT: Mild dextroconvex curvature of the thoracic spine without significant listhesis. No traumatic malalignment. BONES: Vertebral body heights are maintained without evidence of acute fracture. Osseous structures are demineralized. DISCS: Normal. DEGENERATIVE CHANGES: Overall minimal multilevel degenerative changes. SPINAL CANAL/NEUROFORAMEN: No significant osseous spinal canal stenosisor neuroforaminal narrowing. SOFT TISSUES: Anterior and posterior paraspinal soft tissues are within normal limits for age. OTHER: Minimal dependent subsegmental atelectasis of the lung bases. Minimal calcific atherosclerosis of the thoracic aorta. Evidence of a gastric lap band, which is incompletely assessed on this examination. Surgically absent gallbladder. LUMBAR SPINE: ALIGNMENT: Mild levocurvature of the lumbar spine withdegenerative-related minimal retrolisthesis of L2 on L3. No traumatic malalignment. BONES: Vertebral body heights are maintained without evidence of acute fracture. Osseous structures are demineralized. DISCS: Multilevel degenerative discogenic changes with notable severedisc space narrowing, vacuum disc phenomenon, and endplate changes at theL2-L3 level and mild disc space narrowing elsewhere. Vacuum disc phenomenon at the L4-L5 level. DEGENERATIVE CHANGES: Overall moderate multilevel degenerative change, characterized by varying degrees of posterior disc bulges, ligamentum flavum hypertrophy, and facet arthropathy. SPINAL CANAL/NEUROFORAMEN: Multilevel spinal canal stenoses that isnotably mild at the L2-L3 and L3-L4 levels and ltcpubam-sq-tlpszb at the L4-L5 level secondary to posterior disc bulges, ligamentum flavum hypertrophy, and bilateral facet arthropathy. Multilevel neuroforaminal narrowingthat is notably moderate at the right L2-L3 and left L5-S1 levels and daqv-bi-hcvmaahm elsewhere. SOFT TISSUES: Symmetric fatty atrophy of the posterior paraspinal musculature. OTHER: Multiple scattered sigmoid colon diverticula without evidence of diverticulitis. Minimal calcific atherosclerosis of the abdominal aorta. IMPRESSION: 1.No acute fracture or traumatic malalignment of the cervical, thoracic,or lumbar spine. 2.Multilevel degenerative changes throughout the spine resulting in high-grade spinal canal stenosis at the L4-L5 level of the lumbar spineand varying degrees of neuroforaminal narrowing of the cervical and lumbar spine as described. 3.Right thyroid lobe with an enlarged centrally calcified hypodensenodule measuring up to 2.8 cm. Recommend follow-up nonemergent outpatientthyroid ultrasound if not recently performed. > Dictated by Ralf Mc D.O. - Diagnostic Guest Experience Manager. I, Chris Villa MD, PhD have personally reviewed and interpreted this examination/study. > Interpreting Provider: Chris Villa MD, PhD on 09/22/2023 3:05 AM Val Gross MD CT ORDERABL ES * (ABNORMAL) POTASSIUM BLOOD (09/19/2023 3:50 PM CDT) Potassium 3.1(L) 3.5 - 4.5 mmol/L 09/19/2023 4:18 PM CDT [facility] Blood BLOOD SPECIMEN / Unknown Lab Venipuncture / Unknown 09/19/2023 3:50 PM CDT 09/19/2023 3:55 PM CDT Shree Espinoza MD LAB - CHEMISTRY HECTOR [facility] Organization Address City/State/ZIP Co de Phone Number [facility] [address] [address], [facility] [phone] * VDRL CSF W REFLEX TO TITER (09/19/2023 3:29 PM CDT) VDRL CSF Non Reactive Non Reactive 09/29/2023 9:03 AM CDT [facility] ([facility]) Comment: The CSF specimen shows evidence of blood contamination and is, therefore, contaminated with serum antibodies.Antibody testing from this specimen is not recommended as the blood may interfere, causing a false-negative result.Additionally, serum antibodies could generate a positive result that does not reflect intrathecally produced antibodies.It is highly recommended that serum testing for the same analyte also be performed in order to aid in interpreting the CSF test result.Testing was performed at client's request. Performed By: [facility] [employer] [address] [place] [address] Field Enumerator: Jacinto Enriquez MD, PhD CLIA Number: [id number] Cerebral spinal fluid CEREBROSPINAL FLUID SPECIMEN / Unknown Collection / Unknown 09/19/2023 3:29 PM CDT 09/19/2023 3:29 PM CDT Narrative [facility] ([facility]) - 09/29/2023 9:03 AM CDT Test results should be interpreted with caution. Assay was performed at client's request on a sub-optimal specimen. Shree Espinoza MD LAB - BODY FLUID ORD ERABLES Performing Organization Address City/[facility]/ZIP Co de Phone Number [facility] [employer] [facility]) [address] [place] [address] * CULTURE FUNGUS OTHER+FUNGUS SMEAR (09/19/2023 3:18 PM CDT) Culture No fungus isolated HETAL 10/17/2023 9:39 AM CDT [facility] Fungus Stain No yeast or hyphae seen 10/17/2023 9:39 AM CDT [facility] Microbiology CEREBROSPINAL FLUID SPECIMEN / Unknown Collection / Unknown 09/19/2023 3:18 PM CDT 09/19/2023 3:18 PM CDT Shree Espinoza MD LAB - MICROBIOLOGY O RDERABLES [facility] [address] [place] [phone] * MENINGITIS/ENCEPHALITIS PANEL CSF (09/19/2023 3:18 PM CDT) Escherichia coli K1 Not detected Not detected 09/19/2023 9:39 PM CDT [facility] Haemophilus influenzae Not detected Not detected 09/19/2023 9:39 PM CDT [facility] Listeria monocytogenes Not detected Not detected 09/19/2023 9:39 PM CDT [facility] Neisseria meningitis Not detected Not detected 09/19/2023 9:39 PM CDT [facility] Streptococcus agalactiae (Group B) Not detected Not detected 09/19/2023 9:39 PM CDT [facility] Streptococcus pneumoniae Not detected Not detected 09/19/2023 9:39 PM CDT [facility] Cytomegalovirus Not detected Not detected 09/19/2023 9:39 PM CDT [facility] Enterovirus Not detected Not detected 09/19/2023 9:39 PM CDT [facility] Herpes simplex Virus 1 Not detected Not detected 09/19/2023 9:39 PM CDT [facility] Herpes simplex Virus 2 Not detected Not detected 09/19/2023 9:39 PM CDT [facility] Human Herpesvirus 6 Not detected Not detected 09/19/2023 9:39 PM CDT [facility] Human Parechovirus Not detected Not detected 09/19/2023 9:39 PM CDT [facility] Varicella zoster Virus Not detected Not detected 09/19/2023 9:39 PM CDT [facility] Cryptococcus neoformans/gattii Not detected Not detected 09/19/2023 9:39 PM CDT [facility] Microbiology CEREBROSPINAL FLUID SPECIMEN / Unknown Collection / Unknown 09/19/2023 3:18 PM CDT 09/19/2023 3:18 PM CDT Narrative [facility] - 09/19/2023 9:39 PM CDT Meningitis/Encephalitis PCR CSF Panel performed by [employer] Film[employer] multiplex PCR. A negative [employer] ME Panel result does not exclude the possibility of [employer]ESSIONAL infection and should not be used as the sole basis for diagnosis, treatment, or other management decisions. The [employer] ME Panel is intended to be used in conjunction with the standard of care CSF Gram stain and culture for organism recovery and is not a substitute for these tests. Test results should be interpreted in the context of patient presentation and other laboratory information. Shree Espinoza MD LAB - MICROBIOLOGY O RDERABLES [facility] [address] [address], [facility] [phone] * HERPES SIMPLEX 1+2 PCR CSF (09/19/2023 3:16 PM CDT) Herpes Simplex Virus 1 PCR CSF Not detected Not detected 09/19/2023 9:39 PM CDT [facility] Herpes Simplex Virus 2 PCR CSF Not detected Not detected 09/19/2023 9:39 PM CDT [facility] Microbiology CEREBROSPINAL FLUID SPECIMEN / Unknown Collection / Unknown 09/19/2023 3:16 PM CDT 09/19/2023 3:16 PM CDT Shree Espinoza MD LAB - MICROBIOLOGY O KIKI Performing Organization Address City/[facility]/ZIP Co de Phone Number [facility] [address] [place] [address], [facility] [phone] * PARANEOPLASTIC AUTOANTIBODY EVAL CSF (09/19/2023 3:15 PM CDT) Pathologist [facility] See Scanned Document BLAKELY 09/24/2023 2:07 PM CDT [facility] NON INTERF Cerebral spinal fluid CEREBROSPINAL FLUID SPECIMEN / Unknown Collection / Unknown 09/19/2023 3:15 PM CDT 09/19/2023 3:15 PM CDT Shree Espinoza MD LAB - BODY FLUID ORD ERABLES Performing Organization Address [facility] Co de Phone Number [facility] NON INTERF [address] [place] [address], [facility] [phone] * CRYPTOCOCCUS ANTIGEN CSF (09/19/2023 3:15 PM CDT) Pathologist [facility] Cryptococcus Antigen CSF Negative Negative 09/19/2023 8:40 PM CDT [facility] Cerebral spinal fluid CEREBROSPINAL FLUID SPECIMEN / Unknown Collection / Unknown 09/19/2023 3:15 PM CDT 09/19/2023 3:15 PM CDT Shree Espinoza MD LAB - MICROBIOLOGY O KIKI Performing Organization Address City/[facility]/ZIP Co de Phone Number [facility] [address] [place] [address], [facility] [phone] * CULTURE AFB+SMEAR (09/19/2023 3:15 PM CDT) Culture No acid-fast bacillus isolated 10/31/2023 2:03 PM CDT [facility] AFB Smear No acid-fast bacilli seen 10/31/2023 2:03 PM CDT [facility] Microbiology CEREBROSPINAL FLUID SPECIMEN / Unknown Collection / Unknown 09/19/2023 3:15 PM CDT 09/19/2023 3:16 PM CDT Shree Espinoza MD LAB - MICROBIOLOGY O KIKI [facility] [address] [place] [address], [facility] [phone] * VIRAL CULTURE MISC (09/19/2023 3:15 PM CDT) Final Report SEE NOTE 09/30/2023 11:20 AM CDT [employer] ([facility]) Comment: Culture negative For SAF[employer]Y PROFESSIONAL infections due to cultivable viruses (e.g., herpes simplex virus, enterovirus), nucleic-acid amplification based methods are superior to culture- based methods and should be performed if clinically indicated. Performed By: [facility] [address] [place] [address] Field Enumerator: Jacinto Enriquez MD, PhD CLIA Number: [id number] Prelim Report SEE NOTE 09/30/2023 11:20 AM CDT [employer] ([facility]) Comment: Specimen received and in progress. Performed By: [facility] [address] [place] [address] Field Enumerator: Jacinto Enriquez MD, PhD CLIA Number: [id number] Microbiology CEREBROSPINAL FLUID SPECIMEN / Unknown Collection / Unknown 09/19/2023 3:15 PM CDT 09/19/2023 3:15 PM CDT Shree Espinoza MD LAB - MICROBIOLOGY O KIKI [employer] [facility]) [address] * HOLD SPECIMEN CSF (09/19/2023 3:14 PM CDT) Specimen Hold In extra BF rack 09/19/2023 3:19 PM CDT [facility] Cerebral spinal fluid CEREBROSPINAL FLUID SPECIMEN / Unknown Collection / Unknown 09/19/2023 3:14 PM CDT 09/19/2023 3:14 PM CDT Shree Espinoza MD LAB - BODY FLUID ORD ERABLES [facility] [address] [place] [address], [facility] [phone] * WEST N[place] ANTIBODY IGG/IGM CSF PANEL (09/19/2023 3:14 PM CDT) West Nile IgG Ab CSF 0.04 <=1.29 IV 09/30/2023 3:01 PM CDT [facility] [employer] ([facility]) Comment: INTERPRETIVE INFORMATION: West Nile Virus Ab IgG by [facility], CSF 1.29 IV or less ....... Negative: No significant level of West Nile virus IgG antibody detected. 1.30 - 1.49 IV ........ Equivocal: Questionable presence of West Nile virus IgG antibody detected. Repeat testing in 10-14 days may be helpful. 1.50 IV or greater .... Positive: Presence of IgG antibody to West Nile virus detected, suggestive of current or past infection. This test is intended to be used as a semi-quantitative means of detecting West Nile virus-specific IgG in CSF samples in which there is a clinical suspicion of West Nile Virus infection. This test should not be used solely for quantitative purposes, nor should the results be used without correlation to clinical history or other data. Because other members of the Flaviviridae family, such as Laurel encephalitis virus, show extensive cross-reactivity with West Nile virus, serologic testing specific for these species should be considered. The detection of antibodies to West Nile virus in cerebrospinal fluid may indicate central nervous system infection. However, consideration must be given to possible contamination by blood or transfer of serum antibodies across the blood-brain barrier. This test was developed and its performance characteristics determined by [facility]. It has not been cleared or approved by the [place] Food and Drug Administration. This test was performed in a CLIA certified laboratory and is intended for clinical purposes. West Nile IgM Ab CSF 0.00 <=0.89 IV 09/30/2023 3:01 PM CDT [facility] [employer] ([facility]) Comment: INTERPRETIVE INFORMATION: West Nile Virus Ab IgM by RUFINO, CSF 0.89 IV or less ...... Negative - No significant level of West Nile virus IgM antibody detected. 0.90-1.10 IV ......... Equivocal - Questionable presence of West Nile virus IgM antibody detected. Repeat testing in 10-14 days may be helpful. 1.11 IV or greater ... Positive - Presence of IgM antibody to West Nile virus detected, suggestive of current or recent infection. This test is intended to be used as a semi-quantitative means of detecting West Nile virus-specific IgM in CSF samples in which there is a clinical suspicion of West Nile virus infection. This test should not be used solely for quantitative purposes, nor should the results be used without correlation to clinical history or other data. Because other members of the Flaviviridae family, such as Laurel encephalitis virus, show extensive cross-reactivity with West Nile virus, serologic testing specific for these species should be considered. The detection of antibodies to West Nile virus in cerebrospinal fluid may indicate central nervous system infection. However, consideration must be given to possible contamination by blood or transfer of serum antibodies across the blood-brain barrier. This test was developed and its performance characteristics determined by [facility]. It has not been cleared or approved by the [place] Food and Drug Administration. This test was performed in a CLIA certified laboratory and is intended for clinical purposes. Performed By: [facility] [address] [place] [address] Field Enumerator: Jacinto Enriquez MD, PhD CLIA Number: [id number] Cerebral spinal fluid CEREBROSPINAL FLUID SPECIMEN / Unknown Collection / Unknown 09/19/2023 3:14 PM CDT 09/19/2023 3:14 PM CDT Shree Espinoza MD LAB - BODY FLUID ORD ERABLES [facility] [employer] ([facility]) [address] * CULTURE CSF+GRAM STAIN (09/19/2023 3:13 PM CDT) Culture No growth HETAL 09/26/2023 4:52 AM CDT [facility] Gram Stain Heavy Red blood cells 09/26/2023 4:52 AM CDT [facility] Gram Stain No polymorphonuclear cells 09/26/2023 4:52 AM CDT [facility] Gram Stain No organisms seen 024 4:52 AM CDT [facility] Cerebral spinal fluid CEREBROSPINAL FLUID SPECIMEN / Unknown 09/19/2023 3:13 PM CDT 09/19/2023 3:13 PM CDT Shree Espinoza MD LAB - MICROBIOLOGY O RDERABLES [facility] MICROBIOLOGY [address] [place] [address], [facility] [phone] * (ABNORMAL) CELL COUNT W DIFFERENTIAL CSF (09/19/2023 3:13 PM CDT) Tube Number TUBE [id number] 09/19/2023 3:35 PM CDT [facility] Xanthochromia ABSENT ABSENT 09/19/2023 3:35 PM CDT [facility] CSF Appearance SLIGHTLY HAZY 09/19/2023 3:35 PM CDT [facility] CSF Color OTHER 09/19/2023 3:35 PM CDT [facility] Comment:[place] Total Nucleated Cells CSF 4 <=5 x10E6/L 09/19/2023 3:35 PM CDT [facility] Comment:TNC less than or equ al to 5. No differential reported per policy. RBC Count CSF 2,000(H) <1 x10E6/L 09/19/2023 3:35 PM CDT [facility] Cerebral spinal fluid CEREBROSPINAL FLUID SPECIMEN / Unknown Collection / Unknown 09/19/2023 3:13 PM CDT 09/19/2023 3:13 PM CDT Shree Espinoza MD LAB - BODY FLUID ORD ERABLES [facility] [address] [place] [address], [place] [phone] * PROTEIN CSF (09/19/2023 3:13 PM CDT) Protein CSF 42 15 - 45 mg/dL 09/19/2023 3:52 PM CDT [facility] Cerebral spinal fluid CEREBROSPINAL FLUID SPECIMEN / Unknown Collection / Unknown 09/19/2023 3:13 PM CDT 09/19/2023 3:13 PM CDT Shree Espinoza MD LAB - BODY FLUID ORD ERABLES [facility] [address] [place] [phone], [facility] [phone] * GLUCOSE CSF (09/19/2023 3:13 PM CDT) Glucose CSF 68 40 - 70 mg/dL 09/19/2023 3:52 PM CDT [facility] Cerebral spinal fluid CEREBROSPINAL FLUID SPECIMEN / Unknown Collection / Unknown 09/19/2023 3:13 PM CDT 09/19/2023 3:13 PM CDT Shree Espinoza MD LAB - BODY FLUID ORD ERABLES Performing Organization Address City/[facility]/ZIP Co de Phone Number [address] [address], [facility] [phone] * BORRELIA BURGDORFERI AB IGG/IGM CSF (09/19/2023 2:56 PM CDT) Borrelia burgdorferi Antibody IgG Index CSF < 0.08 <0.14 Index 09/28/2023 5:08 PM CDT [facility] ([facility]) Comment: Result Interpretation: Negative: < 0.14 Positive: > or = 0.14 Borrelia burgdorferi Antibody IgM Index CSF < 0.06 <0.07 Index 09/28/2023 5:08 PM CDT [facility] ([facility]) Comment: Result Interpretation: Negative: < 0.07 Positive: > or = 0.07 The performance characteristics of the listed assay was validated by [facility]. The [place] FDA has not approved or cleared this test. The results of this assay can be used for clinical diagnosis without FDA approval. [facility] is a CLIA certified, CAP accredited laboratory for performing high complexity assays such as this one. Testing Performed at: [facility] [address] [address] Cerebral spinal fluid CEREBROSPINAL FLUID SPECIMEN / Unknown Collection / Unknown 09/19/2023 2:56 PM CDT 09/19/2023 3:14 PM CDT Narrative [facility] ([facility]) - 09/28/2023 5:08 PM CDT Performed at: - [facility] [address] [place] [id number] Sales Facilitator: Claire Zazueta PhD, Phone: [phone] Shree Espinoza MD LAB - BODY FLUID ORD ERABLES [facility] ([facility]) [address] [place] [address] * FL LUMBAR PUNCTURE (09/19/2023 2:25 PM CDT) Anatomical Region Laterality Modality Spine Radiographic Arcelia ging 09/19/2023 3:16 PM CDT Impressions 09/20/2023 8:55 AM CDT IMPRESSION: 1.Successful lumbar puncture under fluoroscopic guidance at L3-L4. > Dictated by Matheus Collins MD, MD (residential specialist). I, Emerald Bess MD have personally reviewed and interpreted this examination/study. > Interpreting Provider: Emerald Bess MD on 09/20/2023 8:55 AM Narrative 09/20/2023 8:55 AM CDT PROCEDURE: FL LUMBAR PUNCTURE, DATE/TIME OF EXAM: 09/19/2023 3:02 PM, LOCATION [facility] INDICATION: R41.82: Altered mental status, unspecified altered mental status type ADDITIONAL CLINICAL INFORMATION: Ordering Provider Reason For Exam: concern for meningitis EXAMINATION: 1.Diagnostic lumbar puncture (LP) under fluoroscopic guidance TECHNIQUE: The risks and benefits of the lumbar puncture including, but not limited to, infection, bleeding, seizure, epidural hematoma, post spinal headache, cerebrospinal fluid (CSF) leak requiring blood patch procedure, nausea, vomiting, irritation or damage to nerves causing pain or permanent injury were discussed with the patient and her daughter. After alternatives were discussed and the opportunity to ask questions was provided, the patient and her daughter acknowledged understanding, gave witnessed verbal consent, and wished to proceed. Dr. Jagjit Ceballos was present and assisted throughout the procedure. Attending physician: Dr. Dr. Bess was present for the tolbert portions of this procedure. The L3-4 level was localized with fluoroscopy. The skin overlying this level was then sterilely prepped, draped, and infiltrated with 1% lidocaine for local anesthesia. Under intermittent fluoroscopic guidance, a 20 gauge 3.5 inch needle was inserted into the thecal sac at this level. CSF was initially bloody with subsequent clearing. A total of 19 ml of CSF was removed and placed into 4 specimen tubes. The patient tolerated the procedure well. The patient was then transferred to the inpatient ruiz for further observation and at least 2 hours of bedrest. OPENING PRESSURE: Not performed FLUOROSCOPY TIME: 18.6 seconds Procedure Note Emerald Bess MD - 09/20/2023 PROCEDURE: FL LUMBAR PUNCTURE, DATE/TIME OF EXAM: 09/19/2023 3:02 PM, LOCATION [facility] INDICATION: R41.82: Altered mental status, unspecified altered mental status type ADDITIONAL CLINICAL INFORMATION: Ordering Provider Reason For Exam: concern for meningitis EXAMINATION: 1.Diagnostic lumbar puncture (LP) under fluoroscopic guidance TECHNIQUE: The risks and benefits of the lumbar puncture including, but not limited to, infection, bleeding, seizure, epidural hematoma, post spinal headache, cerebrospinal fluid (CSF) leak requiring blood patch procedure, nausea, vomiting, irritation or damage to nerves causing painor permanent injury were discussed with the patient and her daughter. After alternatives were discussed and the opportunity to ask questions was provided, the patient and her daughter acknowledged understanding, gave witnessed verbal consent, and wished to proceed. Dr. Jagjit Ceballos was present and assisted throughout the procedure. Attending physician: Dr. Dr. Bess was present for the keyportions of this procedure. The L3-4 level was localized with fluoroscopy. The skin overlying this level was then sterilely prepped, draped, and infiltrated with 1%lidocaine for local anesthesia. Under intermittent fluoroscopic guidance, a 20gauge 3.5 inch needle was inserted into the thecal sac at this level. CSF was initially bloody with subsequent clearing. A total of 19 ml ofCSF was removed and placed into 4 specimen tubes. The patient tolerated the procedure well. The patient was then transferred to the inpatient wardfor further observation and at least 2 hours of bedrest. OPENING PRESSURE: Not performed FLUOROSCOPY TIME: 18.6 seconds IMPRESSION: 1.Successful lumbar puncture under fluoroscopic guidance at L3-L4. > Dictated by Matheus Collins MD, MD (residential specialist). I, Emerald Bess MD have personally reviewed and interpreted this examination/study. > Interpreting Provider: Emerald Bess MD on 09/20/2023 8:55 AM Shree Espinoza MD FLUOROSCOPY ORDERABL ES * (ABNORMAL) OSMOLALITY BLOOD (09/18/2023 4:27 AM CDT) Osmolality 302(H) 275 - 295 mOsm/kg 09/18/2023 7:40 AM CDT [facility] Blood BLOOD SPECIMEN / Unknown Lab Venipuncture / Unknown 09/18/2023 4:27 AM CDT 09/18/2023 5:34 AM CDT Shree Espinoza MD LAB - CHEMISTRY HECTOR [facility] Organization Address City/State/[facility] Co de Phone Number [facility] [address] [address], [facility] [phone] * CT HEAD WO CONTRAST (09/17/2023 4:22 PM CDT) Anatomical Region Laterality Modality Head Computed Tomogra phy 09/17/2023 4:35 PM CDT Impressions 09/17/2023 4:51 PM CDT IMPRESSION: No acute intracranial abnormality. > Interpreting Provider: Chris Villa MD, PhD on 09/17/2023 4:51 PM Narrative 09/17/2023 4:51 PM CDT EXAM: CT HEAD WO CONTRAST, DATE/TIME OF EXAM: 09/17/2023 4:23 PM, LOCATION: [facility] HISTORY: R41.82: Altered mental status, unspecified altered mental status type ADDITIONAL CLINICAL INFORMATION: Ordering Provider Reason For Exam: AMS. EXAMINATION: CT scan of the head without intravenous contrast TECHNIQUE: CT of the head was performed without intravenous contrast according to standard protocol. CT dose reduction technique was used, including Automated Exposure Control. COMPARISON: Head CT (stroke) and brain MRI 09/15/2023. FINDINGS: BRAIN PARENCHYMA: No acute hemorrhage, large vascular territory infarct, or mass effect. Small chronic lacunes of the bilateral chen radiata/gangliocapsular regions. Otherwise, white matter is within normal limits for age. Incidentally noted partially empty sella. VENTRICLES/EXTRA-AXIAL SPACES: No ventriculomegaly or extra-axial collection. Basal cisterns are patent. EXTRACRANIAL STRUCTURES: No acute or suspicious osseous abnormality. Mild degenerative changes of the right temporomandibular joint. Normal soft tissues. Mild mucosal thickening of the right frontoethmoidal recess; otherwise, paranasal sinuses, nasal cavity, and mastoids demonstrate no significant abnormality. Mild leftward deviated nasal septum with a small left-sided spur. Incidentally noted right middle nasal turbinate sajan bullosa. Left lens replacement; otherwise, orbits are unremarkable. Mild calcific atherosclerosis of the carotid siphons. Procedure Note Chris Villa MD - 09/17/2023 EXAM: CT HEAD WO CONTRAST, DATE/TIME OF EXAM: 09/17/2023 4:23 PM, LOCATION: [facility] HISTORY: R41.82: Altered mental status, unspecified altered mentalstatus type ADDITIONAL CLINICAL INFORMATION: Ordering Provider Reason For Exam: AMS. EXAMINATION: CT scan of the head without intravenous contrast TECHNIQUE: CT of the head was performed without intravenous contrast according to standard protocol. CT dose reduction technique was used, including Automated Exposure Control. COMPARISON: Head CT (stroke) and brain MRI 09/15/2023. FINDINGS: BRAIN PARENCHYMA: No acute hemorrhage, large vascular territory infarct,or mass effect. Small chronic lacunes of the bilateral chen radiata/gangliocapsular regions. Otherwise, white matter is withinnormal limits for age. Incidentally noted partially empty sella. VENTRICLES/EXTRA-AXIAL SPACES: No ventriculomegaly or extra-axial collection. Basal cisterns are patent. EXTRACRANIAL STRUCTURES: No acute or suspicious osseous abnormality.Mild degenerative changes of the right temporomandibular joint. Normal soft tissues. Mild mucosal thickening of the right frontoethmoidal recess; otherwise, paranasal sinuses, nasal cavity, and mastoids demonstrate no significant abnormality. Mild leftward deviated nasal septum with asmall left-sided spur. Incidentally noted right middle nasal turbinate sajan bullosa. Left lens replacement; otherwise, orbits are unremarkable. Mild calcific atherosclerosis of the carotid siphons. IMPRESSION: No acute intracranial abnormality. > Interpreting Provider: Chris Villa MD, PhD on 09/17/2023 4:51 PM Shree Espinoza MD CT ORDERABLES * (ABNORMAL) CBC W AUTO DIFFERENTIAL (09/17/2023 7:21 AM CDT) Only the most recent of2 resultswithin the time period is included. WBC 9.3 4.0 - 10.7 x10E9/L 09/17/2023 7:54 AM [facility] RBC Count 4.20 3.90 - 5.20 x10E12/L 09/17/2023 7:54 AM [facility] Hemoglobin 13.7 11.9 - 15.8 g/dL 09/17/2023 7:54 AM [facility] Hematocrit 39.6 34.8 - 46.1 % 09/17/2023 7:54 AM [facility] MCV 94.3 80.0 - 98.0 fL 09/17/2023 7:54 AM [facility] MCH 32.6 26.7 - 33.6 pg 09/17/2023 7:54 AM [facility] MCHC 34.6 31.7 - 36.3 g/dL 09/17/2023 7:54 AM [facility] RDW-CV 13.8 11.3 - 14.8 % 09/17/2023 7:54 AM [facility] Platelet Count 231 150 - 420 x10E9/L 09/17/2023 7:54 AM [facility] MPV 9.3 7.8 - 11.4 fL 09/17/2023 7:54 AM [facility] Neutrophil % 81.7(H) 41.0 - 74.0 % 09/17/2023 7:54 AM [facility] Lymphocyte % 9.8(L) 17.0 - 47.0 % 09/17/2023 7:54 AM [facility] Monocyte % 7.8 3.0 - 11.0 % 09/17/2023 7:54 AM [facility] Eosinophil % 0.0 0.0 - 7.0 % 09/17/2023 7:54 AM [facility] Basophil % 0.2 0.0 - 1.6 % 09/17/2023 7:54 AM [facility] Immature Granulocytes % 0.5 0.0 - 1.0 % 09/17/2023 7:54 AM [facility] Neutrophil Absolute 7.59(H) 1.60 - 7.50 x10E9/L 09/17/2023 7:54 AM [facility] Lymphocyte Absolute 0.91(L) 1.00 - 4.40 x10E9/L 09/17/2023 7:54 AM [facility] Monocyte Absolute 0.72 0.15 - 1.00 x10E9/L 09/17/2023 7:54 AM [facility] Eosinophil Absolute 0.00 0.00 - 0.60 x10E9/L 09/17/2023 7:54 AM [facility] Basophil Absolute 0.02 0.00 - 0.13 x10E9/L 09/17/2023 7:54 AM [facility] Blood BLOOD SPECIMEN / Unknown Lab Venipuncture / Unknown 09/17/2023 7:21 AM CDT 09/17/2023 7:36 AM CDT Shree Espinoza MD LAB - HEMATOLOGY ORD ERABLES [facility] [address] [place] [address], [facility] [phone] * CREATINE URINE (09/17/2023 2:41 AM CDT) Creatine 24 Hour Urine Not Applicable mg/24h 09/21/2023 9:24 AM [employer] ([facility]) Comment: INTERPRETIVE INFORMATION: Creatine Urine For random or timed specimens other than 24 hrs, the result represents the total milligrams of creatine excreted during the collection period. Reference ranges for creatine have been established for random urine collections, in mmol/mol creatinine. Access complete set of age- and/or gender-specific reference intervals for this test in the [facility] Test Directory ([employer]). Performed By: [employer] [address] [place] [address] Field Enumerator: Jacinto Enriquez MD, PhD CLIA Number: [id number] Collection Time Hours Random hr 09/21/2023 9:24 AM CDT [facility] ([facility]) Volume 24 Hour Urine Random mL 09/21/2023 9:24 AM CDT [facility]) Creatinine Urine 6320.5 umol/L 09/21/19 9:24 AM CDT [facility]) Creatine Urine 27 10 - 370 mmol/mol [employer] CONSULTANT 09/21/2023 9:24 AM CDT [facility]) Comment: This test was developed and its performance characteristics determined by [facility]. It has not been cleared or approved by the US Food and Drug Administration. This test was performed in a CLIA certified laboratory and is intended for clinical purposes. Urine URINE SPECIMEN OBTAINED BY [employer]AN CATCH PROCEDURE / Unknown Collection / Unknown 09/17/2023 2:41 AM CDT 09/17/2023 2:50 AM CDT Shree Espinoza MD LAB - URINE CHEMISTR Y ORDERABLES [facility] [employer] [facility]) [address] [place] [address] * LYTES (NA K CL) URINE RANDOM PANEL (09/17/2023 2:41 AM CDT) Only the most recent of2 resultswithin the time period is included. Sodium Urine 61 Not Established mmol/L 09/17/2023 3:13 AM CDT [facility] Potassium Urine 45.9 Not Established mmol/L 09/17/2023 3:13 AM CDT [facility] Chloride Random Urine 87 Not Established mmol/L 09/17/2023 3:13 AM CDT [facility] Urine URINE SPECIMEN OBTAINED BY CLEAN CATCH PROCEDURE / Unknown Collection / Unknown 09/17/2023 2:41 AM CDT 09/17/2023 2:50 AM CDT Shree Espinoza MD LAB - URINE CHEMISTR Y ORDERABLES [facility] [address] [place] [address], [facility] [phone] * XR CHEST 1VW PORTABLE (09/16/2023 2:06 PM CDT) Anatomical Region Laterality Modality Chest Radiographic Arcelia ging 09/16/2023 8:10 PM CDT Impressions 09/16/2023 8:12 PM CDT IMPRESSION: The patient is rotated to the left. Opacity at the left lung base and in the left retrocardiac region may be related to underlying pleural effusion with associated atelectasis/airspace disease. Follow up to resolution is recommended. There is no pneumothorax. Left shoulder arthroplasty is partly visualized. > Interpreting Provider: Darin Bradford MD on 09/16/2023 8:12 PM Narrative 09/16/2023 8:12 PM CDT PROCEDURE: XR CHEST 1VW PORTABLE DATE/TIME OF EXAM: 09/16/2023 2:06 PM CLINICAL INFORMATION: None relevant/not provided if blank. Indication: R41.82: Altered mental status, unspecified altered mental status type Z79.899: Polypharmacy I10: Primary hypertension Additional History: COMPARISON: None. Procedure Note Darin Bradford MD - 09/16/2023 PROCEDURE: XR CHEST 1VW PORTABLE DATE/TIME OF EXAM: 09/16/2023 2:06 PM CLINICAL INFORMATION: None relevant/not provided if blank. Indication: R41.82: Altered mental status, unspecified altered mental status type Z79.899: Polypharmacy I10: Primary hypertension Additional History: COMPARISON: None. IMPRESSION: The patient is rotated to the left. Opacity at the left lung base and in the left retrocardiac region may be related to underlying pleural effusion with associated atelectasis/airspace disease. Follow upto resolution is recommended. There is no pneumothorax. Left shoulder arthroplasty is partly visualized. > Interpreting Provider: Darin Bradford MD on 09/16/2023 8:12 PM Shree Espinoza MD DIAGNOSTIC IMAGING O RDERABLES * CREATININE URINE RANDOM (09/16/2023 1:54 PM CDT) Creatinine Urine 62.25 Not Established mg/dL 09/16/2023 2:30 PM CDT [facility] Urine URINE SPECIMEN OBTAINED BY CLEAN CATCH PROCEDURE / Unknown Collection / Unknown 09/16/2023 1:54 PM CDT 09/16/2023 2:01 PM CDT Shree Espinoza MD LAB - URINE CHEMISTR Y ORDERABLES [address] [address], [facility] [phone] * CARDIAC EKG ORDER (09/16/2023 9:22 AM CDT) Narrative 09/16/2023 9:22 AM CDT Ordered by an unspecified provider. Scanned Document CARDIAC SERVICES ORD ERABLES * (ABNORMAL) RENAL FUNCTION PANEL (09/16/2023 6:04 AM CDT) BUN 22 7 - 26 mg/dL 09/16/2023 7:01 AM [facility] Creatinine 1.67(H) 0.56 - 0.96 mg/dL 09/16/2023 7:01 AM [facility] Sodium 145 136 - 145 mmol/L 09/16/2023 7:01 AM [facility] Potassium 3.3(L) 3.5 - 4.5 mmol/L 09/16/2023 7:01 AM [facility] Chloride 106 98 - 107 mmol/L 09/16/2023 7:01 AM [facility] CO2 25 22 - 29 mmol/L 09/16/2023 7:01 AM [facility] Glucose 127(H) 70 - 115 mg/dL 09/16/2023 7:01 AM [facility] Albumin 3.1(L) 3.4 - 5.0 g/dL 09/16/2023 7:01 AM [facility] Calcium 9.8 8.4 - 10.2 mg/dL 09/16/2023 7:01 AM [facility] Phosphorus 4.0 2.9 - 5.1 mg/dL 09/16/2023 7:01 AM [facility] Anion Gap 14 6 - 16 09/16/2023 7:01 AM [facility] BUN/Creatinine Ratio 13 7 - 23 09/16/2023 7:01 AM [facility] Osmolality Calculated 305(H) 275 - 295 mOsm/kg 09/16/2023 7:01 AM [facility] eGFR by CKD-EPI 32(L) >=90 mL/min/1.7 3 m2 09/16/2023 7:01 AM [facility] Blood BLOOD SPECIMEN / Unknown Lab Venipuncture / Unknown 09/16/2023 6:04 AM CDT 09/16/2023 6:25 AM CDT Maria Del Rosario Flores MD LAB - CHEMISTRY ORDE [facility] Organization Address City/State/ZIP Co de Phone Number [facility] [address] [place] [phone], [facility] [phone] * EKG 12-LEAD (09/16/2023 2:53 AM CDT) Only the most recent of2 resultswithin the time period is included. Ventricular Rate 78 BPM [facility] QRS Duration ms 98 ms [facility] Q-T Interval ms 368 ms [facility] QTC Calculation (Bezet) 419 ms [facility] Calculated R [place] -30 degrees [facility] Calculated T [place] 66 degrees [facility] Interpretation EKG ATRIAL FIBRILLATION WITH PREMATURE VENTRICULAR OR ABERRANTLY CONDUCTED COMPLEXES LEFT AXIS DEVIATION NONSPECIFIC ST AND T WAVE ABNORMALITY ABNORMAL ECG WHEN COMPARED WITH ECG OF 09/15/23 WITH PREMATURE VENTRICULAR OR ABERRANTLY CONDUCTED COMPLEXES Now present Confirmed by JIMBO LOPES, PIO ([id number]) on 09/19/2023 10:52:24 PM [facility] 09/16/2023 2:53 AM CDT 09/19/2023 10:52 PM CDT Shree Espinoza MD ECG ORDERABLES [facility] * MRI BRAIN WWO CONTRAST (09/15/2023 6:36 PM CDT) Anatomical Region Laterality Modality Head Magnetic Resonan ce 09/16/2023 9:29 AM CDT Impressions 09/16/2023 11:03 AM CDT IMPRESSION: Sequela of mild chronic ischemic small vessel disease. Otherwise unremarkable appearance of the brain MRI with and without contrast. > Dictated by Jagjit Ceballos DO (residential specialist). IEmerald MD have personally reviewed and interpreted this examination/study. > Interpreting Provider: Emerald Bess MD on 09/16/2023 11:03 AM Narrative 09/16/2023 11:03 AM CDT PROCEDURE: MRI BRAIN WWO CONTRAST, DATE/TIME OF EXAM: 09/15/2023 6:38 PM, LOCATION [facility] INDICATION: R53.1: Weakness ADDITIONAL CLINICAL INFORMATION: Ordering Provider Reason For Exam: ams EXAMINATION: Magnetic resonance imaging (MRI) of the brain without and with contrast TECHNIQUE: MRI of the brain was performed prior to and following the uneventful administration of 16 mL Gadavist intravenous contrast according to standard protocol. COMPARISON: CT head and CTA head and neck from 09/15/2023 FINDINGS: No evidence of acute cerebral infarction is seen. No evidence of acute or chronic hemorrhage is identified. There is mild cerebral volume loss with associated ex vacuo ventricular dilatation, not greater than expected for age. No mass effect or midline shift is seen. 2-3 foci of chronic lacunar infarcts in the bilateral chen radiata/basal ganglia. Mild periventricular white matter FLAIR hyperintensities are nonspecific, but can be seen in the setting of chronic small vessel ischemic disease. No enhancing lesions are identified. There is an empty sella. The corpus callosum appears within normal limits. The posterior fossa, brainstem, and craniocervical junction appear normal. Prominent perivascular spaces are seen within the region of the bilateral basal ganglia. There is a left cataract extraction. The right orbit is normal. No significant mucosal thickening in the paranasal sinuses. Normal flow voids are demonstrated in the carotid arteries and basilar artery. The calvarium appears normal. Mild to moderate degenerative changes in the partially visualized cervical spine Procedure Note Emerald Bess MD - 09/16/2023 PROCEDURE: MRI BRAIN WWO CONTRAST, DATE/TIME OF EXAM: 09/15/2023 6:38PM, LOCATION [facility] INDICATION: R53.1: Weakness ADDITIONAL CLINICAL INFORMATION: Ordering Provider Reason For Exam: ams EXAMINATION: Magnetic resonance imaging (MRI) of the brain without andwith contrast TECHNIQUE: MRI of the brain was performed prior to and following the uneventful administration of 16 mL Gadavist intravenous contrastaccording to standard protocol. COMPARISON: CT head and CTA head and neck from 09/15/2023 FINDINGS: No evidence of acute cerebral infarction is seen. No evidence of acuteor chronic hemorrhage is identified. There is mild cerebral volume losswith associated ex vacuo ventricular dilatation, not greater than expectedfor age. No mass effect or midline shift is seen. 2-3 foci of chroniclacunar infarcts in the bilateral chen radiata/basal ganglia. Mild periventricular white matter FLAIR hyperintensities are nonspecific, but can be seen in the setting of chronic small vessel ischemic disease. No enhancing lesions are identified. There is an empty sella. The corpus callosum appears within normal limits. The posterior fossa, brainstem,and craniocervical junction appear normal. Prominent perivascular spaces are seen within the region of the bilateral basal ganglia. There is a left cataract extraction. The right orbit is normal. No significant mucosal thickening in the paranasal sinuses. Normal flowvoids are demonstrated in the carotid arteries and basilar artery. Thecalvarium appears normal. Mild to moderate degenerative changes in the partially visualized cervical spine IMPRESSION: Sequela of mild chronic ischemic small vessel disease. Otherwise unremarkable appearance of the brain MRI with and without contrast. > Dictated by Jagjit Ceballos DO (residential specialist). IEmerald MD have personally reviewed and interpreted this examination/study. > Interpreting Provider: Emerald Bess MD on 09/16/2023 11:03 AM Dev Goodman MD MR ORDERABLES * URINE MICROSCOPIC ONLY REFLEX TO CULTURE (09/15/2023 6:04 PM CDT) Reflex Status Culture not indicated 09/15/2023 7:12 PM CDT [facility] RBC UA 0-2 None Seen, 0-2, 3-5 /HPF 09/15/2023 7:12 PM T [facility] WBC UA 0-5 None Seen, 0-5 /HPF 09/15/2023 7:12 PM [facility] Squamous Epithelial Cells UA None Seen None Seen, 0-2, 3-5 /HPF 09/15/2023 7:12 PM T [facility] Urine URINE SPECIMEN OBTAINED BY SINGLE CATHETERIZATION OF URINARY BLADDER / Unknown Collection / Unknown 09/15/2023 6:04 PM CDT 09/15/2023 6:08 PM CDT [facility] - 09/15/2023 7:12 PM CDT Dev Goodman MD LAB - URINALYSIS ORD ERABLES Performing Organization Address City/State/[facility] Co de Phone Number [address] [address], [facility] [phone] * (ABNORMAL) URINALYSIS REFLEX MICROSCOPIC REFLEX CULTURE (09/15/2023 6:04 PM CDT) Color UA Colorless(A ) Straw, Yellow 09/15/2023 6:29 PM T [facility] Clarity UA Clear Clear 09/15/2023 6:29 PM T [facility] Specific [place] UA 1.006 1.005 - 1.030 09/15/2023 6:29 PM [facility] pH UA 7.0 5.0 - 8.0 pH 09/15/2023 6:29 PM [facility] Protein UA Negative Negative 09/15/2023 6:29 PM [facility] Glucose UA Negative Negative 09/15/2023 6:29 PM [facility] Ketone UA Negative Negative 09/15/2023 6:29 PM T [facility] Bilirubin UA Negative Negative 09/15/2023 6:29 PM [facility] Blood UA 1+(A) Negative 09/15/2023 6:29 PM [facility] Nitrite UA Negative Negative 09/15/2023 6:29 PM [facility] Leukocyte Esterase Negative Negative 09/15/2023 6:29 PM [facility] Urobilinogen UA Negative Negative mg/dL 09/15/2023 6:29 PM [facility] Urine URINE SPECIMEN OBTAINED BY SINGLE CATHETERIZATION OF URINARY BLADDER / Unknown Collection / Unknown 09/15/2023 6:04 PM CDT 09/15/2023 6:08 PM CDT [facility] - 09/15/2023 6:29 PM CDT Dev Goodman MD LAB - URINALYSIS ORD ERABLES [facility] [address] [place] [phone], [facility] [phone] * (ABNORMAL) URINE DRUG SCREEN IMMUNOASSAY (09/15/2023 6:04 PM CDT) [facility] Amphetamines Screen Urine Negative Negative : < 1000 ng/mL 09/15/2023 6:40 PM [facility] Barbiturates Screen Urine Negative Negative : < 200 ng/mL 09/15/2023 6:40 PM [facility] Benzodiazepine Screen Urine Negative Negative : < 200 ng/mL 09/15/2023 6:40 PM [facility] Opiates Urine Positive(A) Negative : < 300 ng/mL 09/15/2023 6:40 PM [facility] Comment:Positive urine opiat e screening results should be confirmed by another generally accepted non-immunological method such as gas chromatography or mass spectrometry. Cocaine Metabolites Urine Negative Negative : < 300 ng/mL 09/15/2023 6:40 PM [facility] Phencyclidine Screen Urine Negative Negative : < 25 ng/ml 09/15/2023 6:40 PM [facility] Cannabinoids Screen Urine Positive(A) Negative : <50 ng/mL 09/15/2023 6:40 PM [facility] Comment:Positive urine canna binoids (THC) screening results should be confirmed by another generally accepted non-immunological method such as gas chromatography or mass spectrometry. Methadone Screen Urine Negative Negative : < 300 ng/mL 09/15/2023 6:40 PM CDT [facility] Fentanyl Screen Urine Negative Negative : <1.5 ng/mL 09/15/2023 6:40 PM CDT [facility] Urine URINE / Unknown Collection / Unknown 09/15/2023 6:04 PM CDT 09/15/2023 6:08 PM CDT Narrative [facility] - 09/15/2023 6:40 PM CDT The Urine Toxicology Screening Panel does not screen for Propoxyphene, Meprobamate, Carisoprodol, Trazodone, lipg-hyv-rwooeya medications and/or volatiles (Acetone, Isopropanol, Methanol or Ethylene Glycol). Ethanol, Salicylate, Acetaminophen, Tricyclic Antidepressants and several therapeutic drugs may be individually assayed in serum or plasma specimen. Toxicology testing by the [facility] is an aid to medical diagnosis and treatment of patients. No documented chain of custody was maintained. Results are intended to be used for clinical purposes only. Dev Goodman MD LAB - URINE CHEMISTR Y ORDERABLES Performing Organization Address City/[facility]/ZIP Co de Phone Number [address] [address], [facility] [phone] * TSH REFLEX FREE T4 (09/15/2023 2:18 PM CDT) TSH 2.375 0.350 - 4.940 uIU/mL 09/15/2023 4:45 PM CDT [facility] Blood BLOOD SPECIMEN / Unknown Venipuncture / Unknown 09/15/2023 2:18 PM CDT 09/15/2023 2:25 PM CDT Maria Del Rosario Flores MD LAB - CHEMISTRY HECTOR WELCH [address] [address], [facility] [phone] * CK BLOOD (09/15/2023 2:18 PM CDT) CK Total 56 30 - 200 U/L 09/15/2023 2:38 PM CDT [facility] Blood BLOOD SPECIMEN / Unknown Venipuncture / Unknown 09/15/2023 2:18 PM CDT 09/15/2023 2:25 PM CDT Dev Goodman MD LAB - CHEMISTRY ORDE RABERNA Performing Organization Address City/[facility]/ZIP Co de Phone Number [facility] [address] [place] [phone], [facility] [phone] * BLOOD TYPE VERIFICATION (09/15/2023 2:02 PM CDT) ABO Rh O POS 09/15/2023 2:4 1 PM CDT [facility] Blood Bank BLOOD SPECIMEN / Unknown Venipuncture / Unknown 09/15/2023 2:02 PM CDT 09/15/2023 2:07 PM CDT Dev Goodman MD LAB - BLOOD BANK ORD ERABLES Performing Organization Address City/[facility]/ZIP Co de Phone Number [facility] [address] [place] [phone], [facility] [phone] * (ABNORMAL) TRICYCLICS SCREEN BLOOD (09/15/2023 2:02 PM CDT) Tricyclic Antidepressants <40(L) 80 - 200 ng/mL 09/15/2023 2:27 PM CDT [facility] Blood BLOOD SPECIMEN / Unknown Venipuncture / Unknown 09/15/2023 2:02 PM CDT 09/15/2023 2:05 PM CDT Narrative [facility] - 09/15/2023 2:27 PM CDT Many drugs significantly cross-react with this assay, including: diphenhydramine, cyclobenzoprine, gabapentin, and fluoxetine. Results should be confirmed by quantitative mass spectrometry. This assay should not be used for following trends. Expected Values for Tricyclic Antidepressants: Pharmacokinetic studies have shown there is a marked individual variation in the therapeutic and toxic response to tricyclic antidepressants at similar blood concentrations. Cardiac effects have been demonstrated with TCA blood levels as low as 50-100 ng/mL. With TCA levels >500 ng/mL, the incidence of serious cardiac toxicity increases significantly. With TCA levels >1000 ng/mL, severe, sometimes fatal, cardiac and other side effects often occur. Dev Goodman MD LAB - CHEMISTRY HECTOR WELCH Performing Organization Address [facility]/ZIP Co de Phone Number [facility] [address] [place] [address], [facility] [phone] * ALCOHOL ETHYL BLOOD (09/15/2023 2:02 PM CDT) Ethanol (mg/dL) <10 <=10 mg/dL 8:47 AM CDT [facility] Ethanol Calculated (g/dL) <0.010 <0.010 g/dL 09/16/2023 8:47 AM CDT [facility] Blood BLOOD SPECIMEN / Unknown Venipuncture / Unknown 09/15/2023 2:02 PM CDT 09/16/2023 8:35 AM CDT Narrative [facility] - 09/16/2023 8:47 AM CDT Ethanol Interp <10: None Detected. Depression of SAFETY PROFESSIONAL: >100 mg/dl Potentially Critical: >250 mg/dl Potentially Fatal >400 mg/dl Ethanol in the patient's blood will contribute to the osmolar gap. Ethanol's contribution to the osmolar gap can be estimated by dividing the concentration of ethanol in mg/dL by 4.6. This test is for clinical use only and does not equal a ERNESTINA for legal purposes. Dev Goodman MD LAB - CHEMISTRY HECTOR WELCH [facility] [address] [place] [phone], [facility] [phone] * (ABNORMAL) SALICYLATE LEVEL BLOOD (09/15/2023 2:02 PM CDT) Salicylate <5(L) 15 - 30 mg/dL 09/15/2023 2:35 PM CDT [facility] Blood BLOOD SPECIMEN / Unknown Venipuncture / Unknown 09/15/2023 2:02 PM CDT 09/15/2023 2:09 PM CDT Narrative [facility] - 09/15/2023 2:35 PM CDT This test is not intended for use with low-dose aspirin therapy. Most patients on low-dose aspirin for cardiovascular prophylaxis will have serum concentrations near or below the lower limit of the analytical range. Dev Goodman MD LAB - CHEMISTRY HECTOR WELCH Performing Organization Address [facility]/ZIP Co de Phone Number [address] [address], [facility] [phone] * ACETAMINOPHEN LEVEL (09/15/2023 2:02 PM CDT) Acetaminophen <3.0 <3.0 ug/mL 09/15/2023 2:35 PM CDT [facility] Blood BLOOD SPECIMEN / Unknown Venipuncture / Unknown 09/15/2023 2:02 PM CDT 09/15/2023 2:09 PM CDT Narrative [facility] - 09/15/2023 2:35 PM CDT Acetaminophen Toxicity Levels (Hours Post Ingestion): >200 ug/mL at 4 hours >100 ug/mL at 8 hours >50 ug/mL at 12 hours For acute ingestion, please refer to Acetaminophen nomogram to determine the risk of toxicity based on time since ingestion and acetaminophen level (see link provided). Note the nomogram disclaimer. WARNING: Assessing the potential toxicity of an acetaminophen level on a standard risk nomogram must take into consideration many factors including any uncertainty of the time since ingestion or the possibility of other medications that may alter the peak level. Contact the [facility] at or reserved for healthcare professionals to assist you in evaluating potentially toxic acetaminophen levels. Dev Goodman MD LAB - CHEMISTRY HECTOR WELCH Performing Organization Address [facility]/ZIP Co de Phone Number [address] [phone], [facility] [phone] * CT ANGIO BRAIN NECK STROKE (09/15/2023 1:39 PM CDT) Anatomical Region Laterality Modality Head Computed Tomogra phy 09/15/2023 1:21 PM CDT Impressions 09/15/2023 4:31 PM CDT IMPRESSION: 1.No large arterial occlusions or significant stenoses identified in the head or neck. 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 3.Additionally, a less than 2 mm saccular aneurysm of the inferior aspect of the left carotid siphon. 4.Right thyroid nodule measuring 3.6 x 2.5 cm. Further characterization with non-emergent thyroid ultrasound is recommended if not previously done. 5.Atypical appearance of the skull base along the petrous segment of the left carotid canal with low attenuation area involving the left petrous apex and in the absence of the groves of the petrous segment of the left carotid canal in this region, which extends to the middle cranial fossa and posterior cranial fossa, (series 10, images 325-334). Findings are nonspecific. If there is clinical concern, MRI of the brain without and with contrast could be obtained for further evaluation of this region. The report is dictated by Ralf Mc DO, (residential specialist) INoemí MD have personally reviewed and interpreted this examination/study. > Interpreting Provider: Noemí Gaming MD on 09/15/2023 4:31 PM Narrative 09/15/2023 4:31 PM CDT PROCEDURE: CT ANGIO BRAIN NECK STROKE, DATE/TIME OF EXAM: 09/15/2023 1:39 PM, LOCATION [facility] INDICATION: Code Stroke ADDITIONAL CLINICAL INFORMATION: Ordering Provider Reason For Exam: Code stroke. Technologist Note: None. Additional: None. CONTRAST: IOPAMIDOL 76 % IV SOLN:75 mL EXAMINATION: 1. Computed tomographic (CT) angiography of the head with contrast 2. CT angiography of the neck with contrast TECHNIQUE: CT angiography of the head and neck was obtained after the uneventful administration of 75 mL Isovue-370 intravenous contrast. Three dimensional postprocessing was performed by the technologist and sent to the workstation for review. Stenosis measurements are based on NASCET criteria. CT dose reduction technique was used, including Automated Exposure Control. COMPARISON: Comparison is made with a study from earlier today. FINDINGS: Non-angiographic findings: Described on noncontrast CT head obtained on 09/15/2023 at 1:04 PM. Multicystic right thyroid nodule measuring 3.6 x 2.5 cm. Multilevel degenerative disc and joint disease of the cervical spine, worst at C3-C4, C4 the C5, C5-C6 with associated disc osteophyte complexes resulting in mild spinal canal stenosis at these levels. Advanced with facet joint osteoarthritis and uncovertebral hypertrophy resulting in multilevel varying degrees of mild to advanced neural foraminal stenoses. Patchy groundglass opacities in the lung bases is a nonspecific finding. Atypical appearance of the skull base along the petrous segment of the left carotid canal with low attenuation area involving the left petrous apex and in the absence of the groves of the petrous segment of the left carotid canal in this region, which extends to the middle cranial fossa and posterior cranial fossa, (series 10, images 325-334). Findings are nonspecific. If there is clinical concern, MRI of the brain without and with contrast could be obtained for further evaluation of this region. Angiographic findings: Neck: There is minimal atherosclerosis of the aortic arch. The configuration of the brachiocephalic vessels is typical. The innominate artery and both subclavian arteries appear normal. Minimal atherosclerotic wall thickening of the right carotid bifurcation. The right common and internal carotid arteries as well as the right carotid bifurcation appear otherwise patent. Minimal atherosclerotic wall thickening of the left carotid bifurcation. The left common and internal carotid arteries as well as the left carotid bifurcation appear otherwise patent. The carotid and the vertebral arteries are tortuous. The cervical vertebral arteries are patent. Head: The distal internal carotid arteries are patent. Notably, there is a saccular aneurysm at the clinoid segment of the right ICA measuring 3 x 3 mm (series 8, image 86; series 11, image 40). Additionally, there could be a tiny nipple along the inferior aspect of the left carotid siphon, directed posteriorly and measuring less than 2 mm, (series 12, image 39) The anterior cerebral arteries are patent. The middle cerebral arteries are patent. The posterior cerebral arteries are patent. The distal vertebral arteries are patent. The basilar artery is patent patent. No other aneurysms, vascular occlusions, or intracranial stenoses are identified. Procedure Note Noemí Gaming MD - 09/15/2023 PROCEDURE: CT ANGIO BRAIN NECK STROKE, DATE/TIME OF EXAM: :39 PM, LOCATION [facility] INDICATION: Code Stroke ADDITIONAL CLINICAL INFORMATION: Ordering Provider Reason For Exam: Code stroke. Technologist Note: None. Additional: None. CONTRAST: IOPAMIDOL 76 % IV SOLN:75 mL EXAMINATION: 1. Computed tomographic (CT) angiography of the head with contrast 2. CT angiography of the neck with contrast TECHNIQUE: CT angiography of the head and neck was obtained after the uneventful administration of 75 mL Isovue-370 intravenous contrast.Three dimensional postprocessing was performed by the technologist and sent to the workstation for review. Stenosis measurements are based on NASCET criteria. CT dose reduction technique was used, including Automated Exposure Control. COMPARISON: Comparison is made with a study from earlier today. FINDINGS: Non-angiographic findings: Described on noncontrast CT head obtained on 09/15/2023 at 1:04 PM. Multicystic right thyroid nodule measuring 3.6 x 2.5 cm. Multilevel degenerative disc and joint disease of the cervical spine, worst atC3-C4, C4 the C5, C5-C6 with associated disc osteophyte complexes resulting in mild spinal canal stenosis at these levels. Advanced with facet joint osteoarthritis and uncovertebral hypertrophy resulting in multilevel varying degrees of mild to advanced neural foraminal stenoses. Patchy groundglass opacities in the lung bases is a nonspecific finding. Atypical appearance of the skull base along the petrous segment of theleft carotid canal with low attenuation area involving the left petrous apexand in the absence of the groves of the petrous segment of the left carotid canal in this region, which extends to the middle cranial fossa and posterior cranial fossa, (series 10, images 325-334). Findings are nonspecific. If there is clinical concern, MRI of the brain without and with contrast could be obtained for further evaluation of this region. Angiographic findings: Neck: There is minimal atherosclerosis of the aortic arch. The configurationof the brachiocephalic vessels is typical. The innominate artery and both subclavian arteries appear normal. Minimal atherosclerotic wallthickening of the right carotid bifurcation. The right common and internal carotid arteries as well as the right carotid bifurcation appear otherwisepatent. Minimal atherosclerotic wall thickening of the left carotid bifurcation. The left common and internal carotid arteries as well as the leftcarotid bifurcation appear otherwise patent. The carotid and the vertebralarteries are tortuous. The cervical vertebral arteries are patent. Head: The distal internal carotid arteries are patent. Notably, there is a saccular aneurysm at the clinoid segment of the right ICA measuring 3 x3 mm (series 8, image 86; series 11, image 40). Additionally, there couldbe a tiny nipple along the inferior aspect of the left carotid siphon, directed posteriorly and measuring less than 2 mm, (series 12, image 39) The anterior cerebral arteries are patent. The middle cerebral arteries are patent. The posterior cerebral arteries are patent. The distal vertebral arteries are patent. The basilar artery is patent patent. No other aneurysms, vascular occlusions, or intracranial stenoses are identified. IMPRESSION: 1.No large arterial occlusions or significant stenoses identified in the head or neck. 2.Saccular aneurysm of the clinoid portion of the right ICA measuring 3 x3 mm (8/86; 11/40). 3.Additionally, a less than 2 mm saccular aneurysm of the inferioraspect of the left carotid siphon. 4.Right thyroid nodule measuring 3.6 x 2.5 cm. Further characterization with non-emergent thyroid ultrasound is recommended if not previouslydone. 5.Atypical appearance of the skull base along the petrous segment of the left carotid canal with low attenuation area involving the left petrous apex and in the absence of the groves of the petrous segment of the left carotid canal in this region, which extends to the middle cranial fossaand posterior cranial fossa, (series 10, images 325-334). Findings are nonspecific. If there is clinical concern, MRI of the brain without and with contrast could be obtained for further evaluation of this region. The report is dictated by Ralf Mc DO, (residential specialist) INoemí MD have personally reviewed and interpretedthis examination/study. > Interpreting Provider: Noemí Gaming MD on 09/15/2023 4:31 PM Dev Goodman MD CT ORDERABLES * (ABNORMAL) PT-INR [facility] (09/15/2023 1:11 PM CDT) PT 15.5(H) 12.1 - 14.8 Seconds 09/15/2023 1:30 PM CDT [facility] INR 1.3 See Comment 09/15/2023 1:30 PM CDT [facility] Comment:The suggested therap eutic range for standard coumadin (warfarin) therapy is an INR of 2.0-3.0. For high-risk patients (Mechanical Mitral Valve Prosthesis, etc.), the suggested prophylactic therapeutic range is an INR of 2.5-3.5. Blood BLOOD SPECIMEN / Unknown Venipuncture / Unknown 09/15/2023 1:11 PM CDT 09/15/2023 1:14 PM CDT Dev Goodman MD LAB - COAGULATION OR DERABLES Performing Organization Address City/[facility]/ZIP Co de Phone Number [facility] [address] [place] [address], [facility] [phone] * TYPE + SCREEN PANEL (09/15/2023 1:11 PM CDT) Pathologist [facility] Antibody Screen NEG 1:59 PM CDT [facility] ABO Rh O POS 09/15/2023 1:59 PM CDT [facility] Blood Bank BLOOD SPECIMEN / Unknown Venipuncture / Unknown 09/15/2023 1:11 PM CDT 09/15/2023 1:16 PM CDT Dev Goodman MD LAB - BLOOD BANK ORD ERABLES Performing Organization Address [facility]/ZIP Co de Phone Number [facility] [address] [place] [address], [facility] [phone] * (ABNORMAL) COMPREHENSIVE METABOLIC PANEL (09/15/2023 1:11 PM CDT) BUN 26 7 - 26 mg/dL 09/15/2023 1:47 PM CDT [facility] Creatinine 2.14(H) 0.56 - 0.96 mg/dL 09/15/2023 1:47 PM CDT [facility] Sodium 139 136 - 145 mmol/L 09/15/2023 1:47 PM CDT [facility] Potassium 3.9 3.5 - 4.5 mmol/L 09/15/2023 1:47 PM CDT [facility] Comment:Hemolysis detected i n this specimen. Hemolysis may cause false elevations in potassium leading to pseudohyperkalemia or masked hypokalemia. Recommend repeat testing if clinically indicated. Chloride 104 98 - 107 mmol/L 09/15/2023 1:47 PM [facility] CO2 25 22 - 29 mmol/L 09/15/2023 1:47 PM [facility] Glucose 104 70 - 115 mg/dL 09/15/2023 1:47 PM [facility] Calcium 9.3 8.4 - 10.2 mg/dL 09/15/2023 1:47 PM [facility] Protein Total 6.7 6.0 - 8.3 g/dL 09/15/2023 1:47 PM [facility] Comment:Hemolysis detected i n this specimen. Hemolysis is known to cause elevations in this analyte. Caution should be exercised in the interpretation of this result. Recommend repeat testing if clinically indicated. Albumin 3.2(L) 3.4 - 5.0 g/dL 09/15/2023 1:47 PM [facility] Bilirubin Total 0.4 0.2 - 1.2 mg/dL 09/15/2023 1:47 PM [facility] Alkaline Phosphatase 36(L) 40 - 150 U/L 09/15/2023 1:47 PM [facility] ALT 27 5 - 55 U/L 09/15/2023 1:47 PM [facility] AST 42(H) 5 - 34 U/L 09/15/2023 1:47 PM [facility] Comment:Hemolysis detected i n this specimen. Hemolysis is known to cause elevations in this analyte. Caution should be exercised in the interpretation of this result. Recommend repeat testing if clinically indicated. Anion Gap 10 6 - 16 09/15/2023 1:47 PM [facility] BUN/Creatinine Ratio 12 7 - 23 07/06/2023 1:47 PM [facility] Osmolality Calculated 293 275 - 295 mOsm/kg 09/15/2023 1:47 PM [facility] Albumin/Globulin Ratio 0.9(L) 1.1 - 2.3 09/15/2023 1:47 PM [facility] eGFR by CKD-EPI 24(L) >=90 mL/min/1 .73 m2 09/15/2023 1:47 PM CDT [facility] Blood BLOOD SPECIMEN / Unknown Venipuncture / Unknown 09/15/2023 1:11 PM CDT 09/15/2023 1:14 PM CDT Dev Goodman MD LAB - CHEMISTRY HECTOR WELCH [facility] Organization Address City/State/[facility] Co de Phone Number [facility] [address] [place] [address], [facility] [phone] * CT BRAIN - Stroke (09/15/2023 1:08 PM CDT) Anatomical Region Laterality Modality Head Computed Tomogra phy 09/15/2023 1:06 PM CDT Impressions 09/15/2023 1:11 PM CDT IMPRESSION: 1.No acute intracranial hemorrhage. 2.Please note that CT is insensitive to nonhemorrhagic strokes and MRI of the brain should be considered if there is clinical concern for acute cerebral infarction.. Disclaimer: 1.Brain areas including the cerebral sulci, the dural sinuses, the cavernous sinuses, the basilar artery/posterior circulation, the craniocervical junction, and the brain stem, may not be well evaluated on noncontrast CT. MRI of the brain is more sensitive for parenchymal changes related to the above-mentioned brain regions. If there is clinical concern for pathology involving the above-mentioned areas, MRI of the brain is recommended for further evaluation. Results of this exam were communicated with closed loop confirmation to Dr. Doyle by Dr. Gaming on 09/15/2023 at 1:06 PM with read back compression and verification. > Interpreting Provider: Noemí Gaming MD on 09/15/2023 1:11 PM Narrative 09/15/2023 1:11 PM CDT PROCEDURE: CT BRAIN STROKE, DATE/TIME OF EXAM: 09/15/2023 1:08 PM, LOCATION [facility] INDICATION: Code Stroke EXAMINATION: Computed tomography (CT) of the head without contrast ADDITIONAL CLINICAL INFORMATION: Ordering Provider Reason For Exam: Code stroke. Technologist Note: None. Additional: None. TECHNIQUE: CT of the head was performed without contrast according to standard protocol. CT dose reduction technique was used, including Automated Exposure Control. COMPARISON: No prior study is available for comparison at the time of this dictation. FINDINGS: No acute intra- or extra-axial fluid collections are identified. There is mild cerebral volume loss with associated ex vacuo ventricular dilatation. The basilar cisterns are patent. No mass effect or midline shift is seen. Age indeterminate foci of hypoattenuation in the bilateral basal ganglia and the bilateral periventricular white matter, as well as in the brainstem and the posterior fossa. The redman-white matter differentiation otherwise appears normal. Periventricular white matter hypoattenuation is indicative of chronic small vessel ischemic disease. There is vascular calcification of the carotid siphons. No acute calvarial fracture is identified. Other than left cataract extraction, the orbits appear normal. There is mild paranasal sinus disease. Small saajn bullosa of the right middle turbinate. Artifacts from the dental amalgam limits evaluation of the oral cavity. The mastoid air cells are clear. No soft tissue abnormality is identified. Procedure Note Noemí Gaming MD - 09/15/2023 PROCEDURE: CT BRAIN STROKE, DATE/TIME OF EXAM: 09/15/2023 1:08 PM,LOCATION [facility] INDICATION: Code Stroke EXAMINATION: Computed tomography (CT) of the head without contrast ADDITIONAL CLINICAL INFORMATION: Ordering Provider Reason For Exam: Code stroke. Technologist Note: None. Additional: None. TECHNIQUE: CT of the head was performed without contrast according to standard protocol. CT dose reduction technique was used, including Automated Exposure Control. COMPARISON: No prior study is available for comparison at the time ofthis dictation. FINDINGS: No acute intra- or extra-axial fluid collections are identified. Thereis mild cerebral volume loss with associated ex vacuo ventriculardilatation. The basilar cisterns are patent. No mass effect or midline shift isseen. Age indeterminate foci of hypoattenuation in the bilateral basal ganglia and the bilateral periventricular white matter, as well as in thebrainstem and the posterior fossa. The redman-white matter differentiation otherwise appears normal. Periventricular white matter hypoattenuation isindicative of chronic small vessel ischemic disease. There is vascularcalcification of the carotid siphons. No acute calvarial fracture is identified. Other than left cataract extraction, the orbits appear normal. There is mild paranasal sinus disease. Small sajan bullosa of the right middle turbinate. Artifacts from the dental amalgam limits evaluation of theoral cavity. The mastoid air cells are clear. No soft tissue abnormality is identified. IMPRESSION: 1.No acute intracranial hemorrhage. 2.Please note that CT is insensitive to nonhemorrhagic strokes and MRIof the brain should be considered if there is clinical concern for acute cerebral infarction.. Disclaimer: 1.Brain areas including the cerebral sulci, the dural sinuses, the cavernous sinuses, the basilar artery/posterior circulation, the craniocervical junction, and the brain stem, may not be well evaluatedon noncontrast CT. MRI of the brain is more sensitive for parenchymalchanges related to the above-mentioned brain regions. If there is clinicalconcern for pathology involving the above-mentioned areas, MRI of the brain is recommended for further evaluation. Results of this exam were communicated with closed loop confirmation toDr. Doyle by Dr. Gaming on 09/15/2023 at 1:06 PM with read back compression and verification. > Interpreting Provider: Noemí Gaming MD on 09/15/2023 1:11 PM [address] MD [address] ORDERABLES * INR WHOLE BLOOD - POINT OF CARE (IP) STROKE (09/15/2023 1:08 PM CDT) INR 1.2 0.9 - 1.2 09/15/2023 1:10 PM CDT [facility] Device [id number] 09/15/2023 1:10 PM CDT [facility] Fabric Worker Supervisor ID [id number] 09/15/2023 1:10 PM CDT [facility] Blood BLOOD SPECIMEN / Unknown 09/15/2023 1:08 PM CDT 09/15/2023 1:10 PM CDT Provider Unknown LAB - POINT OF CARE ORDERABLES [facility] [address] [place] [address], [facility] [phone] * (ABNORMAL) CREATININE - POCT INTERFACED (09/15/2023 1:08 PM CDT) Pathologist [facility] Creatinine POCT 1.30 0.30 - 1.30 mg/dL 09/15/2023 1:10 PM CDT [facility] eGFR 43(L) >=90 mL/min/1.7 3 m2 09/15/2023 1:10 PM CDT [facility] Blood BLOOD SPECIMEN / Unknown 09/15/2023 1:08 PM CDT 09/15/2023 1:10 PM CDT Provider Unknown LAB - POINT OF CARE ORDERABLES [facility] [address] [place] [address], [facility] [phone] * CARDIAC RHYTHM STRIP ORDER (02/09/2022 7:03 PM INDUSTRIAL COMMERCIAL GROUNDSKEEPER) Only the most recent of2 resultswithin the time period is included. Narrative 02/09/2022 7:03 PM INDUSTRIAL COMMERCIAL GROUNDSKEEPER Ordered by an unspecified provider. Scanned Document CARDIAC SERVICES ORD ERABLES * IMAGING RADIOLOGY XRAY RESULTS ORDER (02/09/2022 3:09 AM INDUSTRIAL COMMERCIAL GROUNDSKEEPER) Anatomical Region Laterality Modality Other Narrative 02/09/2022 3:09 AM INDUSTRIAL COMMERCIAL GROUNDSKEEPER Ordered by an unspecified provider. Scanned Document IMAGING * (ABNORMAL) HGB HCT PANEL (02/06/2022 4:39 AM INDUSTRIAL COMMERCIAL GROUNDSKEEPER) Pathologist [facility] Hemoglobin 12.8 12.0 - 15.6 gm/dL 02/06/2022 5:18 AM INDUSTRIAL COMMERCIAL GROUNDSKEEPER [facility] Hematocrit 35.6(L) 35.9 - 45.5 % 02/06/2022 5:18 AM INDUSTRIAL COMMERCIAL GROUNDSKEEPER [facility] Blood BLOOD SPECIMEN / Unknown Lab Venipuncture / Unknown 02/06/2022 4:39 AM INDUSTRIAL COMMERCIAL GROUNDSKEEPER 02/06/2022 5:14 AM INDUSTRIAL COMMERCIAL GROUNDSKEEPER Jason Vargas DO LAB - HEMATOLOGY ORDERABLES [facility] [address] [place], [place] [id number] * XR KNEE RIGHT 2VW OR LESS (02/05/2022 11:29 AM INDUSTRIAL COMMERCIAL GROUNDSKEEPER) Anatomical Region Laterality Modality Lower Extremity Radiographic Arcelia ging 02/05/2022 2:48 PM INDUSTRIAL COMMERCIAL GROUNDSKEEPER Impressions 02/05/2022 2:49 PM INDUSTRIAL COMMERCIAL GROUNDSKEEPER IMPRESSION: Total knee prosthesis. > Interpreting Provider: Kaleb Summers MD on 02/05/2022 2:49 PM Narrative 02/05/2022 2:49 PM INDUSTRIAL COMMERCIAL GROUNDSKEEPER PROCEDURE: XR KNEE RIGHT 2VW OR LESS, DATE/TIME OF EXAM: 02/05/2022 2:45 PM, LOCATION [facility] INDICATION: M17.11: Unilateral primary osteoarthritis, right knee ADDITIONAL CLINICAL INFORMATION: Ordering Provider Reason For Exam: Technologist Note: Additional: COMPARISON: CT knee December 31, 2021 FINDINGS: The patient is status post total knee prosthesis. There is a drain. Expected soft tissue gas. No periprosthetic fracture. The alignment is as expected. Procedure Note Kaleb Summers MD - 02/05/2022 PROCEDURE: XR KNEE RIGHT 2VW OR LESS, DATE/TIME OF EXAM: :45 PM, LOCATION [facility] INDICATION: M17.11: Unilateral primary osteoarthritis, right knee ADDITIONAL CLINICAL INFORMATION: Ordering Provider Reason For Exam: Technologist Note: Additional: COMPARISON: CT knee December 31, 2021 FINDINGS: The patient is status post total knee prosthesis. There is a drain. Expected soft tissue gas. No periprosthetic fracture. The alignment isas expected. IMPRESSION: Total knee prosthesis. > Interpreting Provider: Kaleb Summers MD on 02/05/2022 2:49 PM Jason Vargas DO DIAGNOSTIC IMAGI NG ORDERABLES * Peripheral Nerve Block (02/05/2022 8:44 AM INDUSTRIAL COMMERCIAL GROUNDSKEEPER) Narrative Reece Vázquez MD - 02/05/2022 8:44 AM INDUSTRIAL COMMERCIAL GROUNDSKEEPER Reece Vázquez MD 02/05/2022 8:48 AM Peripheral Nerve Block Procedure: Peripheral Nerve Block Patient Location: Pre-op Preprocedure Section: Indications: at surgeon's request and postop pain management. Pre-anesthetic Checklist: Patient identified, IV Checked, Site examined and clear, Risks and benefits discussed, Surgical consent verified, Monitors and equipment, Time-out performed, Informed consent obtained, Pre-op evaluation done, Questions answered/anesthesia questions answered, Allergies reviewed and Removal hand/wrist jewelry Monitors: Pulse Ox. Patient Condition: sedated, meaningful contact maintained throughout procedure Patient Position: supine Patient Sedated? Yes Sedation Agents: fentaNYL (PF) (SUBLIMAZE) injection, 100 mcg midazolam (VERSED) injection, 1 mg Procedure Section Laterality: right Block Performed: adductor canal Prep: Chloraprep Strerile Field: gloves, mask, hat/cap, patient draped and sterile ultrasound sleeve Skin localized with: lidocaine (XYLOCAINE) 1 % injection, 3 mL Needle Type: Echogenic insultaed Needle Gauge: 20 Needle Length: 100 mm Catheter? No Ultrasound Guided? Yes Technique: in plane Visualization: Preliminary scan performed, Important anatomical structures identified, Needle tip visualized throughout the procedure, Target identified, No intraneural or intravascular puncture occurred, Ultrasound image in chart, Local visualized surrounding nerve on ultrasound and Hydrodissection utilized Injection was made incrementally with constant monitoring and aspirations every 5 mL's Block Agents or Additives used? Yes Block agents used: ropivacaine (NAROPIN) 5 MG/ML (0.5%) injection, 40 mL Procedure Tolerance: tolerated well Assessment: completed Procedure Start Time: 02/05/2022 8:41 AM. Procedure End Time: 02/05/2022 8:44 AM. Procedure Total Time: 3 minutes. Staff Section Anesthesia Provider: Reece Vázquez MD, Performed the procedure Reece Vázquez MD GENERAL ANESTH ESIA ORDERABLES * CT KNEE RIGHT WO CONTRAST (01/08/2022 10:09 AM CDT) Narrative [facility] - 01/11/2022 4:44 PM CDT See Notes. Jason Vargas DO CT ORDERABLES [facility] [address] [place] [address] * CULTURE YEAST (06/02/2021 11:25 AM CDT) Culture Yeast with ID [facility] Comment: CULTURE, YEAST, W/IDENTIFICATION Micro Number: [id number] Test Status: Final Specimen Source: Vulva Specimen Quality: Adequate Result: No fungal growth at 2 Weeks Test Performed at: [facility] [id number] [place] [address] VICTOR HUGO ANTON MD Microbiology ENTIRE VULVA / Unknown 06/02/2021 11:25 AM CDT 06/03/2021 2:30 AM CDT Abiola Cordova AUTOMOTIVE LUBE TECHNICIAN-COLLATOR OPERATOR LAB - MICRO BIOLOGY ORDERABLES [facility] [address] [place] [address] * DERMATOPATH TECHNICAL REPORT (04/25/2018 12:00 AM [facility]) Case Report Dermatopathology Report Case: [id number] Authorizing Provider: Abiola Stoddard MD Collected: 04/25/2018 12:00 AM Pathologist: Freida Diehl MD Received: 04/26/2018 10:46 AM Specimen: Skin, right post thigh 12:27 PM [facility] DERMAT[facility]Y [facility]OR[facility] Addendum 1 At the request of the diagnosing physician, the technical component for [place]-1/Melan A was performed by [facility] Dermatopathology [facility]. 12:27 PM [facility] DERMATOP[facility]Y [facility]OR[facility]ORY Addendum electronically signed by Freida Diehl MD on 04/28/2018 at 12:27 PM Clinical History Nevus, irr color, irr border. 12:27 PM [facility] Gross Description Specimen A: Received is one formalin filled container labeled with the patient's name and designated right post thigh. The specimen consists of a shave measuring 71m1m6sy. Jar 0. [facility] performed the technical component only. 12:27 PM [facility] DERMATOPATHOLOGY [facility]ORATORY Embedded Images 12:27 PM [facility] DISCLAIMER An external and internal positive and negative controls are appropriate for the histochemical, immunohistochemical and immunofluorescence stain(s) in this case (if any), except where stated explicitly. The performance characteristics of the stain(s) cited in this report were developed and its performance characteristic determined by the Dermatopathology Laboratory at [facility], directed by Dr. Nica Diaz. These tests need not be, and therefore are not, approved by the [place] Food and Drug Administration. The tests are used for clinical purposes. 9 12:27 PM INDUSTRIAL COMMERCIAL GROUNDSKEEPER DERMATOPATHOLOGY LABORATORY Pathology/Cytolog y TISSUE SPECIMEN FROM SKIN / Unknown 04/25/2018 04/26/2018 10:46 AM INDUSTRIAL COMMERCIAL GROUNDSKEEPER Abiola Stoddard MD LAB - PATHOLOGY/CYT OLOGY ORDERABLES Performing Organization Address [facility] Co de Phone Number DERMATOPATHOLOGY LABORATORY [facility] Department of Dermatology [address] [place] [address], 5th Floor Lab [address] [phone] * PATHOLOGY/GENETICS HISTORICAL-ONBASE (07/21/2016) 07/21/2016 Historical Provider LAB - CHEMISTRY O RDERAQI Performing Organization Address [facility] Co de Phone Number [address] * LAB HISTORICAL RESULTS-ONBASE (07/21/2016) Only the most recent of2 resultswithin the time period is included. 07/21/2016 Historical Provider LAB - CHEMISTRY O RDERAQI Performing Organization Address [facility] Co de Phone Number [place] [phone] * PH FLUID - POCT (AMB) [facility] (06/10/2015) pH Vaginal 5.0 [facility] Vaginal swab (specimen) 06/10/2015 Cherelle Navarrete MD LAB - POINT OF CAR E ORDERABLES Performing Organization Address [facility]/ZIP Co de Phone Number [facility] * WET PREP - POINT OF CARE (AMB) [facility] (06/10/2015) pH Wet Prep 5.0 [facility] Yeast Wet Prep ? buds [facility] Trichomonas Wet Prep neg [facility] Bacteria Wet Prep neg [facility] Whiff Test neg [facility] 06/10/2015 Cherelle Navarrete MD LAB - POINT OF CAR E ORDERABLES [facility] * FUNGUS ROMAN - POINT OF CARE (AMB) [facility] (06/10/2015) ROMAN Prep neg [facility] Fluid specimen (specimen) 06/10/2015 Cherelle Navarrete MD LAB - POINT OF CAR E ORDERABLES Performing Organization Address City/[facility]/ZIP Co de Phone Number [facility] * CULTURE YEAST WITH DIRECT FLUORESCENT ROMAN (06/10/2015) Smear SEE NOTE [facility]) Comment: CULTURE, YEAST, W/DIRECT FLUORESCENT ROMAN MICRO NUMBER: [id number] TEST STATUS: FINAL SPECIMEN SOURCE: VAGINA SPECIMEN QUALITY: ADEQUATE SMEAR: No fungal elements seen. RESULT: No fungal growth at 2 Weeks REPORT COMMENT: PLEASE CHECK FOR ALL NASREEN SPECIES INCLUDING NASREEN GLABRATA PLEASE CHECK FOR SENSITIVITIES EVEN FOR NASREEN ALB Test Performed at: [facility] [address] VICTOR HUGO ANTON MD Vaginal swab (specimen) 06/10/2015 06/11/2015 12:17 AM CDT Narrative [facility]) - 06/27/2015 7:00 AM CDT Please check for all nasreen species including nasreen glabrata Please check for sensitivities even for nasreen albicans result Please check for sensitivities for these drugs: 1. Anidulafungin 2. Micafungin 3. Caspofungin 4. 5-Flucytosine 5. Posaconazole 6. Voriconazole 7. Itraconazole 8. Fluconazole 9. Amphotericin B Specimen Type->Vaginal swab Cherelle Navarrete MD LAB - MICROBIOLOGY ORDERABLES [facility] ([facility]) * CYTOLOGY SMEAR PAP THIN PREP (06/25/1998 1:56 PM CDT) Only the most recent of3 resultswithin the time period is included. Result CASE NUMBER [id number] Comment: ORDERING PHYSICIAN WILLIAM ARDON SPECIMEN TYPE PAP Smear Date 06/25/1998 Procedure Cervical/Endocervical, 1 Vial for Thin Prep Received Specimen Adequacy Satisfactory for Evaluation Categorization Benign Cellular Changes Comment Inflammation Present. Snomed. 07/02/1998 1533 <1> Area Safety Manager Silvia Godwin (ASC) Pathologist. Todd Martinez M.D. PAP Footnote The PAP smear is only a screening procedure to aid in the detection of cervical cancer and its precursors. It is not a diagnostic procedure and should not be used as the sole means to detect cervical cancer. Both false negative and false positive results have been experienced. MISCELLANEOUS SAMPLES / Unknown 06/25/1998 1:56 PM CDT 06/30/1998 1:56 PM CDT Historical Provider LAB - PATHOLOGY/C YTOLOGY ORDERABLES Care Teams Sewage Disposal Engineer Relationship Specialty Start Date End Date Zhanna Cordero MD [address] [place] [address] PCP - General 12/01/21 Jung Regalado MD [address] [place] [address] Family Medicine 03/16/10
--- OUTSIDE RECORDS SUMMARY | 2024-04-30 14:40 | XMS_ITS | Encounter Summary ---
Author Organization [facility] Healthcare Address [address] [place] [address] Care Team Providers Care Radiology Teacher Name Role Phone Jung Regalado MD Primary Care Provider [phone] Zhanna Cordero MD Primary Care Provider [phone] Encounter Details Date Type Department Care Team (Late st Contact Info) Description 09/24/2019 Telephone 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 Gender Identity Female 06/30/2022 6:11 AM CDT Sexual Orientation Straight 06/30/2022 6: 11 AM CDT Occupation Industry Job Start Date Job End Date retired Not on file Not on file Not on file documented as of this encounter Plan of Treatment Not on file documented as of this encounter Visit Diagnoses Not on filedocumented in this encounter Care Teams Radiology Teacher Relationship Specialty Start Date End Date Jung Regalado MD [address] [place] [address] PCP - General 10/05/16 05/21/20 Zhanna Cordero MD [address] [place] [address] PCP - General Family Medicine 05/22/20 documented as of this encounter
--- OUTSIDE RECORDS SUMMARY | 2024-04-30 14:40 | XMS_ITS | Continuity of Care Document ---
Author Organization [facility] Address [address] [place] [address] [address] [place] [address] Phone Care Team Providers Care Loom Changeover Operator Name Role Phone Olman Zelaya Unavailable Unavailable Advance Directives Directive Yes / No Effective Date File Name No Information Encounters Encounter Description Practice Location Reason(s) For Visit Diagnoses Date Provider Providers Copied on Encounter [facility], [address], [place], [place], [id number], [place] tel:[phone] [facility] No Information [address] , [address], [place], [address], [place]. tel:[phone] Family History Family Member Type Diagnosis Age At Onset No Information Payers Payer name Insurance type Covered alliance party ID Authoriza tion(s) [employer] SOI CI [id number] Social History Type Description Quantity Date Captured Comments Sex Female Smoking Status No Information Chief Complaint And Reason For Visit No Information Reason For Referral Reason For Referral No Information History Of Present Illness Encounter Date Complaint History Of Prese nt Illness No Information Functional Status Date Functional Assessmen t No Information Instructions Date Instruction Additional Infor mation No Information Assessments Type Assessment Date No Information Patient Care Teams Name Effective Dates (start - stop) Status Members No Information
--- OUTSIDE RECORDS SUMMARY | 2024-04-30 14:40 | XMS_ITS | Encounter Summary ---
Author Organization [facility] Address [address] [place] [address] Care Team Providers Care Capture Manager Name Role Phone Jung Regalado MD Unavailable [phone] Jung Regalado MD Primary Care Provider [phone] Zhanna Cordero MD Primary Care Provider [phone] Encounter Details Date Type Department Care Team (Late st Contact Info) Description 06/07/2018 Lab Requisition [facility] Care DermPath Lab [address] [facility], [place] [address] Abiola Stoddard MD [address] [facility] 3 DEPT [place] [address] Social History Tobacco Use Types Packs/Day Years [...] Priority Date/Time Associated Diagnosis Comments DERMATOPATHOLOGY Routine 06/06/2018 12:0 0 AM CDT documented in this encounter Results * DERMATOPATHOLOGY (06/06/2018 12:00 AM CDT) Case Report Dermatopathology Report Case: [id number] Authorizing Provider: Abiola Stoddard MD Collected: 06/06/2018 12:00 AM Pathologist: Hailee Su MD Received: 06/07/2018 07:02 AM Specimen: Skin, right post thigh 12:[address] [facility] DERMATOPATHOLOGY LABORATORY Final Diagnosis Specimen A. SKIN, right post thigh: DERMAL SCAR RESIDUAL MELANOCYTIC PROLIFERATION NOT IDENTIFIED (L90.5) 12:[address] [facility] DERMATOPATHOLOGY LABORATORY Clinical History Compound homero prolif, biopsy proven. Check margins 12:[address] [facility] DERMATOPATHOLOGY LABORATORY Gross Description Specimen A: Received is one formalin filled container labeled with the patient's name and designated right post thigh. The specimen consists of a non-oriented ellipse of skin measuring 22g90o9 mm. The epidermal surface is unremarkable. The margin is inked green. The 12 o'clock and 6 o'clock tips are submitted in cassette 1. The remainder of the ellipse is serially sectioned and submitted in cassette 2-4. There are pieces of additional tissue measuring 12x4x2,12x3x3,10x3x 3, and 7x4x2 submitted in cassette 5. Jar 0. 12:[address] [facility] DERMATOPATHOLOGY LABORATORY Microscopic Description Specimen A. SKIN, right post thigh: There are fibroblasts and collagen bundles oriented parallel to the skin surface. There are elongated blood vessels, some of which are oriented perpendicular to the skin surface. No residual melanocytic proliferation is identified. 12:[address] [facility] DERMATOPATHOLOGY LABORATORY Disclaimer An external and internal positive and negative controls are appropriate for the histochemical, immunohistochemical and immunofluorescence stain(s) in this case (if any), except where stated explicitly. The performance characteristics of the stain(s) cited in this report were developed and its performance characteristic determined by the Dermatopathology Laboratory at [facility], directed by Dr. Nica Diaz. These tests need not be, and therefore are not, approved by the [place] Food and Drug Administration. The tests are used for clinical purposes. Billing Codes Specimen Charges Stain Charges 14422 1 12:25 PM T DERMATOPATHOLOGY LABORATORY Embedded Images 03/28/201 9 12:25 PM CDT DERMATOPATHOLOGY LABORATORY Pathology/Cytolog y TISSUE SPECIMEN FROM SKIN / Unknown 06/06/2018 06/07/2018 7:02 AM CDT Abiola Stoddard MD LAB - PATHOLOGY/CYT OLOGY ORDERABLES DERMATOPATHOLOGY LABORATORY [facility] - Department of Dermatology [address] [place] [address] 5th Floor Lab [address] [phone] documented in this encounter Visit Diagnoses Not on filedocumented in this encounter Care Teams Capture Manager Relationship Specialty Start Date End Date Jung Regalado MD [address] [place] [address] PCP - General 07/12/17 11/30/21 Zhanna Cordero MD [address] [place] [address] PCP - General 12/01/21 Jung Regalado MD [address] [place] [address] Family Medicine 03/16/10 documented as of this encounter
--- OUTSIDE RECORDS SUMMARY | 2024-04-30 14:40 | XMS_ITS | Clinical Summary ---
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 Gender Identity Not on file Sexual Orientation Not on file Plan of Treatment Health Maintenance Due Date Last Done Comments DEXA Bone Density 1945 Hepatitis C Virus (HCV) Screening 1945 TdaP Immunization 1945 Colonoscopy 12/08/1992 Colorectal Cancer Screening 12/08/1992 Cologuard 12/08/1997 Immunochemical Fecal Occult Blood 12/08/1997 Pneumococcal Immunization (5 0+ years) (1 of 1 - PCV) 12/08/1997 Respiratory Syncytial Virus (RSV) Immunization (Adult) (1 - 1-dose 75+ series) 12/08/2022 Influenza Immunization (#1) 11/13/202311/13, 01/03/2020 SARS-COV-2 Immunization ( season) 2023 03/19/2021, 05/21/2020, 04/23/2020 Zoster Immunization Completed 02/23/2021, 12/02/2020 Hepatitis B Immunization Aged Out No longer eligible based on patient's age to complete this topic Meningococcal Immunization (ACWY) Aged Out No longer eligible b ased on patient's age to complete this topic Rotavirus Immunization Aged Out No lo nger eligible based on patient's age to complete this topic
--- OUTSIDE RECORDS SUMMARY | 2024-04-30 14:40 | XMS_ITS | Referral Summary ---
Author Organization [facility] Address [address] [facility] [place] [address] Care Team Providers Care Development Engineer Name Role Phone Jung Regalado MD Unavailable [phone] Zhanna Cordero MD Primary Care Provider [phone] Source Comments [facility],non-owned Affiliates and Associated Physician Practices is amultiple site organization consisting of ambulatory clinics and hospital sitesin [place], [place], [place]. This disclosure is being madepursuant to the Care Everywhere program and may not contain all information available regarding this patient. Last updated 17.[facility] Encounters Date Type Department Care Team Description 02/22/2024 Lab Requisition [facility] - DermPath Lab [address] [facility], [place] [id number] Hilaria Kaur DO from Last 3 Months Allergies No known active allergies Medications * Be aware that medications may not be up to date on this document. Alwaysverify current medications with the patient. Medication Sig Dispensed Refills Start Date End Date Status dilTIAZem coated beads 24hr (Cardizem CD) 240 MG capsuleIndications :Atrial Fibrillation,Hyper tension Take 1 (one) capsule by mouth once daily Reasons: Atrial Fibrillation, High Blood Pressure Disorder Active Acetaminophen (TYLENOL PO) Active melatonin 3 MG tabletIndications: Insomnia Take 2 (two) tablets by mouth at bedtime Reasons: Trouble Sleeping 09/23/2023 Active polyethylene glycol 3350 (Miralax) 17 g packet Take 17 (seventeen) g by mouth once daily as needed for Constipation 09/23/2023 Active Additional Information Patient not taking.Reported on 11/24/2023 apixaban (Eliquis) 5 MG tablet Take 1 (one) tablet by mouth 2 times daily 60 tablet 3 09/23/2023 Active triamterene-hydroC HLOROthiazide (Dyazide) 37.5-25 MG capsule Take 1 (one) capsule by mouth once daily Active Active Problems Problem Noted Date Diagnosed [...] fibrillation 01/28/2020 Left carpal tunnel syndrome 10/09/2019 Overview (01/30/2020): Added automatically from request for surgery [id number] 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 Not hard at all 09/16/2023 [facility] of Occupat ional Health - Occupational Stress [...] place to sleep or slept in a longterm (including now)? No 09/16/2023 Sex and Gender [...] Mass Index 30.86 11/24/2023 9:45 AM CDT Functional Status Functional Status Response Date of [...] person have difficulty concentrating/remembering/making decisions? Yes 09/17/2023 Plan of Treatment Not on file Medical Devices Implanted Type Area Fastener Technologist Device Identifier Shelf Expiration Date Model / Serial / Lot Cmpnt Ptlr S 31x9mm Tritanium Strl Lf Implanted:Qty: 1 on 02/05/2022 by Jason Vargas, DO at [facility] Right: Knee [employer] 01/08/2027 [id number] / / [id number] Bsplt Tib Trthlm 4 Kn Tritanium Implanted:Qty: 1 on 02/05/2022 by Jason Vargas, DO at [facility] Right: Knee [employer] 2026 [id number] / / [id number] Cmpnt Fem Kn Rt 3 Crcte Rtn Bead Trthln Implanted:Qty: 1 on 02/05/2022 by Jason Vargas DO at [facility] Right: Knee [employer] 11/21/2026 [id number] / / [id number] Ins Tib 4 9mm Kn X3 Crcte Sub Trthln Implanted:Qty: 1 on 02/05/2022 by Jason Vargas DO at [facility] Right: Knee [employer] 12/02/2026 [id number] / / [id number] Procedures Procedure Name Priority Date/Time Associated Diagnosis Comments DERMATOPATHOLOGY Routine 02/22/2024 8:43 AM INTERIOR PLANT CARETAKER GLUCOSE - POINT OF CARE Routine 09/23/19 12:31 PM CDT from Last 3 Months or Most Recently Relevant to Health Maintenance Results * DERMATOPATHOLOGY (02/22/2024 8:43 AM INTERIOR PLANT CARETAKER) Case Report Dermatopathology Report Case: [id number] Authorizing Provider: Hilaria Kaur DO Collected: 02/22/2024 08:43 AM Ordering Location: [facility] - Received: 02/22/2024 03:46 PM DermPath Lab Pathologist: Antonieta Zazueta MD Specimen: Skin, right upper arm 12:06 PM INTERIOR PLANT CARETAKER DERMATOPATHOLOGY LABORATORY Final Diagnosis Specimen A. SKIN, right upper arm: DERMAL SCAR RESIDUAL SQUAMOUS CELL CARCINOMA NOT IDENTIFIED (L90.5) 12:06 PM [employer]IOR PLANT CARETAKER DERMATOPATHOLOGY LABORATORY Clinical History Bx proven, R/O SCC 4 12:06 PM INTERIOR PLANT CARETAKER DERMATOPATHOLOGY LABORATORY Gross Description Specimen A: Received is one formalin filled container labeled with the patient's name and designated right upper arm. The specimen consists of a non-oriented ellipse of skin measuring 46b74s0 mm. The epidermal surface is unremarkable. The margin is inked green. The 12 o'clock and 6 o'clock tips are submitted in cassette 1. The remainder of the ellipse is serially sectioned and submitted in cassette 2. Jar 0. 4 12:06 PM [facility] DERMATOPATHOLOGY LABORATORY Microscopic Description Specimen A. SKIN, right upper arm: There are fibroblasts and collagen bundles oriented parallel to the skin surface. There are elongated blood vessels, some of which are oriented perpendicular to the skin surface. No residual squamous cell carcinoma is identified. 4 12:06 PM [facility] DERMATOPATHOLOGY LABORATORY Disclaimer An external and internal positive and negative controls are appropriate for the histochemical, immunohistochemical and immunofluorescence stain(s) in this case (if any), except where stated explicitly. The performance characteristics of the stain(s) cited in this report were developed and its performance characteristic determined by the Dermatopathology Laboratory at [facility], directed by Dr. Nica Diaz. These tests need not be, and therefore are not, approved by the [place] Food and Drug Administration. The tests are used for clinical purposes. Billing Codes Specimen Charges Stain Charges 02384 1 4 12:06 PM [facility] DERMATOPATHOLOGY LABORATORY Embedded Images 4 12:06 PM [facility] DERMATOPATHOLOGY LABORATORY Pathology/Cytolo gy TISSUE SPECIMEN FROM SKIN / Unknown 02/22/2024 8:43 AM INTERIOR PLANT CARETAKER 02/22/2024 3:46 PM INTERIOR PLANT CARETAKER Hilaria Kaur DO LAB - PATHOLOGY/C YTOLOGY ORDERABLES DERMATOPATHOLOGY LABORATORY [facility] - Department of Dermatology [address], [address] [phone] * (ABNORMAL) GLUCOSE - POINT OF CARE (09/23/2023 12:31 PM CDT) Glucose WB/POC 225(H) 70 - 115 mg/dL 09/23/2023 12:36 PM CDT [facility] Specimen Type Cap Fingerstick 2023 12:36 PM CDT [facility] Blood BLOOD SPECIMEN / Unknown 09/23/2023 12:31 PM CDT 09/23/2023 12:36 PM CDT Val Gross MD LAB - POINT OF CARE ORDERABLES [facility] [address] [place] [address], [facility] [phone] from Last 3 Months or Most Recently Relevant to Health Maintenance Advance Directives Documents on File Type Date Recorded Patient Typewriter Repairer Expl anation Adv Directive/Living Will/POA 02/09/2022 6:44 PM * Full Code (Latest Code Status on File) Date Activated Date Inactivated Comments 09/15/2023 2:57 PM 09/23/2023 5:54 PM * Full Code Date Activated Date Inactivated Comments 02/05/2022 12:13 PM 02/06/2022 3:14 PM Care Teams Development Engineer Relationship Specialty Start Date End Date Zhanna Cordero MD [address] [place] [address] PCP - General 12/01/21 Jung Regalado MD [address] [place] [address] Family Medicine 03/16/10
--- OUTSIDE RECORDS SUMMARY | 2024-04-30 14:40 | XMS_ITS | Encounter Summary ---
Author Organization [facility] Address [address] [facility] [place] [address] Care Team Providers Care Auto Vinyl Top Installer Name Role Phone Jung Regalado MD Unavailable [phone] Zhanna Cordero MD Primary Care Provider [phone] Encounter Details Date Type Department Care Team (Late st Contact Info) Description 02/22/2024 Lab Requisition [facility] - DermPath Lab [address] [facility], [place] [address] Hilaria Kaur DO [address] [facility] [address] [place] [address] Social History Tobacco Use Types Packs/Day Years [...] and heating? Not hard at all 09/16/2023 [facility] Occupat ional Health - Occupational Stress [...] place to sleep or slept in a senior care (including now)? No 09/16/2023 Sex and Gender [...] Diagnosis Comments DERMATOPATHOLOGY Routine 02/22/2024 8:43 AM ETYMOLOGY PROFESSOR documented in this encounter Results * DERMATOPATHOLOGY (02/22/2024 8:43 AM ETYMOLOGY PROFESSOR) Case Report Dermatopathology Report Case: [id number] Authorizing Provider: Hilaria Kaur DO Collected: 02/22/2024 08:43 AM Ordering Location: [facility] - Received: 02/22/2024 03:46 PM DermPath Lab Pathologist: Antonieta Zazueta MD Specimen: Skin, right upper arm 12:06 PM ETYMOLOGY PROFESSOR DERMATOPATHOLOGY LABORATORY Final Diagnosis Specimen A. SKIN, right upper arm: DERMAL SCAR RESIDUAL SQUAMOUS CELL CARCINOMA NOT IDENTIFIED (L90.5) 12:06 PM [facility] DERMATOPATHOLOGY LABORATORY Clinical History Bx proven, R/O SCC 12:06 PM [facility] DERMATOPATHOLOGY LABORATORY Gross Description Specimen A: Received is one formalin filled container labeled with the patient's name and designated right upper arm. The specimen consists of a non-oriented ellipse of skin measuring 19w92c9 mm. The epidermal surface is unremarkable. The margin is inked green. The 12 o'clock and 6 o'clock tips are submitted in cassette 1. The remainder of the ellipse is serially sectioned and submitted in cassette 2. Jar 0. 12:06 PM [facility] DERMATOPATHOLOGY LABORATORY Microscopic Description Specimen A. SKIN, right upper arm: There are fibroblasts and collagen bundles oriented parallel to the skin surface. There are elongated blood vessels, some of which are oriented perpendicular to the skin surface. No residual squamous cell carcinoma is identified. 12:06 PM [facility] DERMATOPATHOLOGY LABORATORY Disclaimer An external and internal positive and negative controls are appropriate for the histochemical, immunohistochemical and immunofluorescence stain(s) in this case (if any), except where stated explicitly. The performance characteristics of the stain(s) cited in this report were developed and its performance characteristic determined by the Dermatopathology Laboratory at [facility], directed by Dr. Nica Diaz. These tests need not be, and therefore are not, approved by the [place] Food and Drug Administration. The tests are used for clinical purposes. Billing Codes Specimen Charges Stain Charges 53605 1 4 12:06 PM ETYMOLOGY PROFESSOR DERMATOPATHOLOGY LABORATORY Embedded Images 4 12:06 PM ETYMOLOGY PROFESSOR DERMATOPATHOLOGY LABORATORY Pathology/Cytolo gy TISSUE SPECIMEN FROM SKIN / Unknown 02/22/2024 8:43 AM ETYMOLOGY PROFESSOR 02/22/2024 3:46 PM ETYMOLOGY PROFESSOR Hilaria Kaur DO LAB - PATHOLOGY/C YTOLOGY ORDERABLES DERMATOPATHOLOGY LABORATORY [facility] - Department of Dermatology [facility] Medicine [address] [place] [address], [address] [phone] documented in this encounter Visit Diagnoses Not on filedocumented in this encounter Care Teams Auto Vinyl Top Installer Relationship Specialty Start Date End Date Zhanna Cordero MD [address] [place] [address] PCP - General 12/01/21 Jung Regalado MD [address] [place] [address] Family Medicine 03/16/10 documented as of this encounter
--- OUTSIDE RECORDS SUMMARY | 2024-04-30 14:40 | XMS_ITS | Clinical Summary ---
Author Organization [facility] Address [address] [place] [address] Care Team Providers Care Pull Socket Assembler Name Role Phone Jung Regalado MD Unavailable [phone] Zhanna Cordero MD Primary Care Provider [phone] Source Comments [facility],non-owned Affiliates and Associated Physician Practices is amultiple site organization consisting of ambulatory clinics and hospital sitesin [place], [place], [place] and [place]. This disclosure is being madepursuant to the Care Everywhere program and may not contain all information available regarding this patient. 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 Arthralgia of shoulder 09/02/2011 Primary hypertension 03/16/2010 Degeneration of cervical intervertebral disc 05/2010 Cervical spondylosis without myelopathy 03/16/19 11 Encounters Date Type Department Care Team Description 02/22/2024 Lab Requisition [facility] Lab [address] [place] [id number] Vincent Hilaria Davenport, DO from Last 3 Months Family History Medical History Relation Name Comments Cancer - Colon Father Cancer - Breast Maternal Grandmother Cancer - Breast Mother Cancer - Breast Paternal Grandmother Cancer - Breast Sister Relation Name Status Comments Father Maternal Grandfather Maternal Grandmother Mother Paternal Grandfather Paternal Grandmother Sister Alive Social History Tobacco Use Types Packs/Day [...] and heating? Not hard at all 09/16/2023 [facility] [place] [facility] Occup[facility] - Occupational Stress [...] place to sleep or slept in a penitentiary (including now)? No 09/16/2023 Sex and Gender [...] Mass Index 30.86 11/24/2023 9:45 AM CDT Plan of Treatment Health Maintenance Due Date Last Done Comments HEPATITIS C SCREENING 12/04/1965 DTAP/TDAP/TD VACCINES (1 - Tdap) 12/08/1966 PNEUMOCOCCAL VACCINE 50+ (1 of 1 - PCV) 12/08/1997 ZOSTER VACCINE (1 of 2) 12/08/1997 Respiratory Syncytial Virus (RSV) Vaccine Pt: or over 60 yrs (1 - 1-dose 75+ series) 12/08/2022 COVID-19 VACCINE (3 - 2023- season) 2023 05/21/2020, 04/23/2020 INFLUENZA VACCINE (#1) 2023 12/12/2020, 2019 DEPRESSION SCREENING 03/14/2024 MEDICARE AWV CALENDAR YEAR 2024 SCREENING FOR DIABETES 09/22/2026 , 09/23/2023, 09/23/2023, Additional history exists BONE DENSITY TESTING Completed 07/19/2023, 07/15/2022, 01/29/2020 HEPATITIS B VACCINE Aged Out No longe r eligible based on patient's age to complete this topic HIB VACCINE Aged Out No longer eligi ble based on patient's age to complete this topic HPV VACCINE Aged Out No longer eligi ble based on patient's age to complete this topic MENINGOCOCCAL (Group B) VACCINE Aged Out No longer eligible based on patient's age to complete this topic MENINGOCOCCAL VACCINE Aged Out No edgar amanda eligible based on patient's age to complete this topic Medical Devices Implanted Type Area Landscape Specialist Device Identifier Shelf Expiration Date Model / Serial / Lot Cmpnt Ptlr S 31x9mm Tritanium Strl Lf Implanted:Qty: 1 on 02/05/2022 by Jason Vargas DO at [facility] Right: Knee [employer] 01/08/2027 [id number] / / [id number] Bsplt Tib Trthlm 4 Kn Tritanium Implanted:Qty: 1 on 02/05/2022 by Jason Vargas DO at [facility] Right: Knee [employer] 2026 [id number] / / [id number] Cmpnt Fem Kn Rt 3 Crcte Rtn Bead Trthln Implanted:Qty: 1 on 02/05/2022 by Jason Vargas DO at [facility] Right: Knee [employer] 11/21/2026 [id number] / / [id number] Ins Tib 4 9mm Kn X3 Crcte Sub Trthln Implanted:Qty: 1 on 02/05/2022 by Jason Vargas DO at [facility] Right: Knee [employer] 12/02/2026 [id number] / / [id number] Procedures Procedure Name Priority Date/Time Associated Diagnosis Comments DERMATOPATHOLOGY Routine 02/22/2024 8:43 AM [facility] GLUCOSE - POINT OF CARE Routine 09/23/19 12:31 PM CDT from Last 3 Months or Most Recently Relevant to Health Maintenance Results * DERMATOPATHOLOGY (02/22/2024 8:43 AM [facility]) Case Report Dermatopathology Report Case: [id number] Authorizing Provider: Hilaria Kaur DO Collected: 02/22/2024 08:43 AM Ordering Location: [facility] - Received: 02/22/2024 03:46 PM DermPath Lab Pathologist: Antonieta Zazueta MD Specimen: Skin, right upper arm 12:06 PM [facility]MAT[facility] Final Diagnosis Specimen A. SKIN, right upper arm: DERMAL SCAR RESIDUAL SQUAMOUS CELL CARCINOMA NOT IDENTIFIED (L90.5) 12:06 PM [facility] DERMATOPATH[facility]Y [facility]OR[facility] Clinical History Bx proven, R/O SCC 12:06 PM [facility] DERMATOPATH[facility]Y [facility] Gross Description Specimen A: Received is one formalin filled container labeled with the patient's name and designated right upper arm. The specimen consists of a non-oriented ellipse of skin measuring [id number] mm. The epidermal surface is unremarkable. The margin is inked green. The 12 o'clock and 6 o'clock tips are submitted in cassette 1. The remainder of the ellipse is serially sectioned and submitted in cassette 2. Jar 0. 12:06 PM [facility] DERMATOPATHOLOGY [facility]ORATORY Microscopic Description Specimen A. SKIN, right upper arm: There are fibroblasts and collagen bundles oriented parallel to the skin surface. There are elongated blood vessels, some of which are oriented perpendicular to the skin surface. No residual squamous cell carcinoma is identified. 12:06 PM [facility] DERMATOPATHOLOGY [facility]ORATORY Disclaimer An external and internal positive and negative controls are appropriate for the histochemical, immunohistochemical and immunofluorescence stain(s) in this case (if any), except where stated explicitly. The performance characteristics of the stain(s) cited in this report were developed and its performance characteristic determined by the Dermatopathology Laboratory at [facility], directed by Dr. Nica Diaz. These tests need not be, and therefore are not, approved by the [place] Food and Drug Administration. The tests are used for clinical purposes. Billing Codes Specimen Charges Stain Charges 69295 1 12:06 PM [facility] DERMATOPATH[facility]Y [facility] Embedded Images 12:06 PM [facility] DERMATOP[facility]Y LAB[facility]ORY Pathology/Cytolo gy TISSUE SPECIMEN FROM SKIN / Unknown 02/22/2024 8:43 AM [facility] 02/22/2024 3:46 PM [facility] Hilaria Kaur DO LAB - PATHOLOGY/C YTOLOGY ORDERABLES DERMATOPATHOLOGY LABORATORY [facility] - Department of Dermatology [facility] Medicine [address] [place] [address], [facility] [phone] * (ABNORMAL) GLUCOSE - POINT OF CARE (09/23/2023 12:31 PM CDT) Glucose WB/POC 225(H) 70 - 115 mg/dL 09/23/2023 12:36 PM CDT [facility] Specimen Type Cap Fingerstick 2023 12:36 PM CDT [facility] Blood BLOOD SPECIMEN / Unknown 09/23/2023 12:31 PM CDT 09/23/2023 12:36 PM CDT Val Gross MD LAB - POINT OF CARE ORDERABLES [facility] [address] [place] [address], [facility] [phone] from Last 3 Months or Most Recently Relevant to Health Maintenance Advance Directives Documents on File Type Date Recorded Patient Process Safety Manager Expl anation Adv Directive/Living Will/POA 02/09/2022 6:44 PM * Full Code (Latest Code Status on File) Date Activated Date Inactivated Comments 09/15/2023 2:57 PM 09/23/2023 5:54 PM * Full Code Date Activated Date Inactivated Comments 02/05/2022 12:13 PM 02/06/2022 3:14 PM Care Teams Pull Socket Assembler Relationship Specialty Start Date End Date Zhanna Cordero MD [address] [place] [address] PCP - General 12/01/21 Jung Regalado MD [address] [place] [address] [facility] Medicine 03/16/10
--- OUTSIDE RECORDS SUMMARY | 2024-04-30 14:40 | XMS_ITS | Continuity of Care Document ---
Author Organization [facility] Address [address] [place] [address] Phone Care Team Providers Care Motel Manager Name Role Phone Ira Marcelo PA-C Unavailable Unavailable Allergies, Adverse Reactions, Alerts Substance Reaction Status Criticality No Known Allergies Active No Inform ation Medications Medication Instructions Dosage Effective Dates (start - stop) Status Comments cyclobenzaprine 10 mg tablet take 1 tablet by oral route 3 times every day 10 MG - Active acyclovir 200 mg capsule take 1 capsule by oral route every 4 hours 5 times per day 200 MG - Active acyclovir 5 % topical ointment apply by topical route every 3 hours 6 times per day to the affected area(s) 0.00 - Active albuterol sulfate HFA 90 mcg/actuation aerosol inhaler inhale 2 puff by inhalation route every 4 - 6 hours as needed 180 MCG - Active alprazolam 0.5 mg tablet take 1 tablet by oral route 3 times every day 0.5 MG - Active Eliquis 5 mg tablet - Active diclofenac 1 % topical gel apply 2 gram by topical route 4 times every day to the affected area(s) 2.00 gram - Active buspirone 15 mg tablet take 1 tablet by oral route 2 times every day 15 MG - Active hydrocodone 10 mg-acetaminophen 325 mg tablet take 1 tablet by oral route every 6 hours as needed for pain - Active Hair,Skin and Nails tablet - Active melatonin 10 mg tablet - Active nitrofurantoin macrocrystal 100 mg capsule take 1 capsule by oral route every 6 hours for 7 days with food 100 MG - Active oxybutynin chloride ER 10 mg tablet,extended release 24 hr take 1 tablet by oral route every day 10 MG - Active pantoprazole 40 mg tablet,delayed release take 1 tablet by oral route every day 40 MG - Active potassium chloride ER 10 mEq tablet,extended release take 1 tablet by oral route every day with food 10 MEQ - Active valacyclovir 1 gram tablet take 1 tablet by oral route every 12 hours 1000 MG - Active WAL-DRYL (unknown strength) take 2 capsule by oral route every 4 - 6 hours as needed Not Available - Active HYOSCYAMINE SULFATE (unknown strength) Not Available - Active gabapentin 400 mg capsule - Active triamterene 37.5 mg-hydrochlorothiazide 25 mg capsule - Active Vitamin D2 1,250 mcg (50,000 unit) capsule - Active diltiazem ER 240 mg capsule,extended release take 1 capsule by oral route every day 240 MG - Active Procedures Procedure Date RADEX KNE 3 VIEWS Triamcinolone acet inj NOS Drugs unclassified injection DRAIN/INJECT JOINT/BURSA OFFICE/OUTPATIENT VISIT EST RADEX KNE 3 VIEWS OFFICE/OUTPATIENT VISIT EST RADEX KNE 3 VIEWS OFFICE/OUTPATIENT VISIT EST Triamcinolone acet inj NOS Drugs unclassified injection DRAIN/INJECT JOINT/BURSA RADEX KNE 3 VIEWS Triamcinolone acet inj NOS Drugs unclassified injection INJ TRIGGER POINT 1/2 MUSCL Betamethasone acet&sod phosp Drugs unclassified injection DRAIN/INJECT JOINT/BURSA OFFICE/OUTPATIENT VISIT EST POSTOP FOLLOW-UP VISIT RADEX KNE 3 VIEWS POSTOP FOLLOW-UP VISIT TOTAL KNEE ARTHROPLASTY RADEX KNE COMPL 4/MORE VIEWS MANUAL APPL STRESS PFRMD PHYS JOINT RADI OGRAPHY OFFICE/OUTPATIENT VISIT NEW DXA BONE DENSITY STUDY AXIAL CA screen;pelvic/breast exam CA screen;pelvic/breast exam OFFICE/OUTPATIENT VISIT EST OFFICE/OUTPATIENT VISIT EST OFFICE/OUTPATIENT VISIT EST DXA BONE DENSITY STUDY 1+ SITS AXIAL DIEGO L PREV VISIT EST AGE 40-64 Advance Directives Directive Yes / No Effective Date File Name Other Directive No N/A N/A WARNING:The information contained in this section is historical and is provided for information only and does not constitute a legal document or any assurance that the information is still accurate. Please verify the information with the almanza of the legal document before using it for clinical purposes. Encounters Encounter Description Practice Location Reason(s) For Visit Diagnoses Date Provider Providers Copied on Encounter OFFICE/OUTPA TIENT VISIT EST [facility], [address], [place], [place], [facility], tel:[phone] [facility] Primary osteoarthritis of left kneeBody mass index [BMI] 33.0-33.9, adultStatus post total right knee replacement 4 Fozia Roth. [address], [place], [place], [facility], [place]. [phone] Referring Provider: Zhanna Coronel, [address] [place] [address], [address] . tel:[phone] OFFICE/OUTPA TIENT VISIT EST [facility], [address], [place], [place], [facility], [place] tel:[phone] [facility] [place] Primary osteoarthritis of left kneeStatus post total right knee replacementBody mass index [BMI] 33.0-33.9, adultBody mass index [BMI] 31.0-31.9, adult 4 Fozia Roth. [address], [place], [place], [facility], [place]. [phone] Referring Provider: Zhanna Coronel, [address] [place] [address], [address] . tel:[phone] OFFICE/OUTPA TIENT VISIT EST [facility], [address], [place], [address], [place] tel:[phone] [facility] [place] Body mass index [BMI] 33.0-33.9, adultStatus post total right knee replacementRight knee pain, unspecified chronicityPrimary osteoarthritis of left knee 3 Jossue Corral. [address], [place], [place], [address] . [phone] Referring Provider: Zhanna Coronel, [address] [place] [address], [address] . tel:[phone] OFFICE/OUTPA TIENT VISIT EST [facility], [address], [place], [address], [place] tel:[phone] [facility] [place] Status post total right knee replacementPrimar y osteoarthritis of left kneeBody mass index [BMI] 33.0-33.9, adult 3 Sam Mckeon anthony. [address], [place], [place], [address] . [phone] Referring Provider: Zhanna Coronel, [facility] [place], [address] . tel:[phone] [facility], [address], [place], [address], [place] tel:[phone] [facility] [place] Status post total right knee replacementRight knee pain, unspecified chronicity 3 Teriarlene Crawford. [address], [place], [place], [id number] , [place]. [phone] Referring Provider: Zhanna Coronel, [facility] [place], [address] . tel:[phone] [facility], [address], [place], [address], [place] tel:[phone] [facility] [place] Primary osteoarthritis of right kneeStatus post total right knee replacementBody mass index [BMI] 33.0-33.9, adult 2 Teri Crawford. [address], [place], [place], [address] , [place]. [phone] Referring Provider: Zhanna Coronel, [address] [place], [address] . tel:[phone] [facility], [address], [place], [address], [place] tel:[phone] [facility] Status post total right knee replacement 2 Vargas Mike er. [address], [place], [place], [id number] . tel: [phone] [facility], [address], [place], [address], [place] tel:[phone] [facility] Primary osteoarthritis of right knee 2 Sam Johnsonoph er. [address], [place], [place], [address] . tel: [phone] [facility], [address], [place], [address], [place] tel:[phone] [facility] No Information 2 Sam Johnsonoph er. [address], [place], [place], [address] . tel: [phone] [facility], [address], [place], [address], [place] tel:[phone] [facility] Primary osteoarthritis of right kneeLong term current use of anticoagulantClas s 1 obesity with body mass index (BMI) of 33.0 to 33.9 in adult, unspecified obesity type, unspecified whether serious comorbidity presentHypertensi on, unspecified type 2 Sam Johnsonoph er. [address], [place], [place], [address] . tel: [phone] OFFICE/OUTPA TIENT VISIT NEW [facility], [address], [place], [address], [place] tel:[phone] [facility] Pain in left kneePrimary osteoarthritis of right kneePrimary osteoarthritis of left kneeRight knee pain, unspecified chronicityBody mass index [BMI] 33.0-33.9, adult 2 Vargas Mike er. [address], [place], [place], [address] . tel: [phone] Referring Provider: Zhanna Coronel, [address] [place], [address] . tel:[phone] [facility] [address] [facility], [address], [place] tel:[phone] [facility] Abnormal mammogram of left breast Nov- 9 Kurtlucille Mckeon er. [address], [place], [place], [address] . tel: [phone] [facility] [address] [facility], [place], [address], [place] tel:[phone] [facility] Abnormality of left breast on screening mammography Nov- 9 Delfino Mckeon er. [address], [place], [place], [address] . tel: [phone] [facility] [address] [facility], [address], [place] tel:[phone] [facility] Oth disrd of bone density and structure, other site - 8 Delfino Mckeon er. [address], [place], [place], [address] . tel: [phone] [facility] [address] [facility], [place], [address], [place] tel:[phone] [facility] Annual exam (chief complaint) Other specified disorders of bone density and structure, other siteEncounter for well woman exam with routine gynecological examAcquired absence of both cervix and uterusAcquired absence of ovaries, bilateral 8 [facility] Mike er. [address], [place], [place], [address] . tel: [phone] [facility] [address] [facility] [address], [place], [address], [place] tel:[phone] [facility] Screening exam (chief complaint) Encounter for gynecological examination without abnormal findingAcquired absence of both cervix and uterus 0 5 [facility] Mike er. [address], [place], [place], [address] . tel: [phone] OFFICE/OUTPA TIENT VISIT EST [facility] [address] [facility] [address], [place], [address], [place] tel:[phone] [facility] Vaginal burning and itching (chief complaint) Lichen sclerosus et atrophicus of the vulva 5 [facility] Mike er. [address], [place], [place], [address] . 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 [address], [place], [address]. tel: [phone] OFFICE/OUTPA TIENT VISIT EST [facility] [address] [facility] [address], [place], [address], [place] tel:[phone] [facility] screening (chief complaint) Routine RAIL DOWELING MACHINE OPERATOR examMenopauseOste oarthritis, GeneralizedDepres sionMammogram, Screening 3 Lisa Lynne. [address], [place], [address]. tel: [phone] [facility] [address], [place], [address], [place] tel:[phone] [facility] BMD (chief complaint) Special screening for osteoporosisMenop ausal Symptoms 3 Lisa Lynne. [address], [place], [address]. tel: [phone] PREV VISIT EST AGE 40-64 [facility] [address], [place], [address], [place] tel:[phone] [facility] annual visit (chief complaint) Well Woman / Routine Airplane Flight Attendant Supervisor/PapMenopausal SymptomsOsteoarth ritis, GeneralizedDivert iculitis of colon (without mention of hemorrhage)Depres esha 2 Lisa Lynne. [address], [place], [address]. tel: [phone] Family History Family Member Type Diagnosis Age At Onset Problem (finding) Family history of Arthr itis Son Problem (finding) rhabdomyosarcoma 23 Mother Problem (finding) Problem (finding) Family history of Heart disease Problem (finding) Family history of hyper tension Maternal grandmother Problem (finding) breast cancer Father Problem (finding) cancer of colon (Cause Of ) Father Problem (finding) Mother Problem (finding) malignant neop lasm of breast in first degree relative (Cause Of ) Immunizations Vaccine Date Status Comments Pneumo (2 yrs or older)(PPV) administered Source: Other Provider Payers Payer name Insurance type Covered constitution party ID Authoriza tion(s) AARP Medicare Complete HMO-POS [id number] [id number] Social History Type Description Quantity Date Captured Comments Alcohol Use Details Unknown Caffeine Use Details Unknown Tobacco Use Status No Information Smoking Status Never smoker Sex Female Chief Complaint And Reason For Visit No Information Reason For Referral Reason For Referral No Information Plan Of Treatment Date Type Action Status Referral Ordered: RADEX KNE 3 VIEWS Bilateral knee ordered Referral Ordered: RADEX KNE 3 VIEWS RT knee ordered Referral Ordered: CT Lower Extr w/o Contrast RT knee Appointment date/timeframe: 01/08/2022 ordered Referral Ordered: MANUAL APPL STRESS PFRMD PHYS JOINT RADIOGRAPHY Bilateral knee ordered Referral Ordered: RADEX KNE COMPL 4/MORE VIEWS Bilateral knee ordered Referral Ordered: BX BREAST INCL STEREOTACTIC GUIDANCE Left breast ordered Referral Ordered: Ultrasound Of Breast Limited Left breast ordered Referral Ordered: DX MAMMO INCL CAD UNI L breast ordered Referral Ordered: DXA BONE DENSITY STUDY AXIAL ordered Referral Ordered: SCREENING MAMMOGRAPHY BILATERAL ordered Future Order: Lab Order Pap-Liqu id-based ([id number]), Ordered on: Ordered History Of Present Illness Encounter Date Complaint History Of Prese nt Illness Annual exam (comments) This paola ent has no nurse obgyn related complaints. She has had hysterectomy/BSO and is without significant vasomotor symptoms. Current health issues and medications, recent surgeries, and health screenings reviewed. Meds as listed. Has FH breast CA (sister, mother, MGM, PGM). Testing for deleterious gene mutation was recommended but declined. Last mamm in early 2017 showed abnl L breast and stereotactic bx was benign. BMD in 2012 was nl. Has FH colon CA (father). Colonoscopy in 2014 was neg. Pertinent positives in ROS addressed. Two children (one surviving) and four grandchildren. Annual exam Screening exam Screening exam This patient has no nurse obgyn related complaints. She has had hysterectomy with BSO and is without significant vasomotor symptoms. Current health issues and medications, recent surgeries, and health screenings reviewed. Takes diltiazem for HTN and amitryptaline for proctalgia fugax. Also uses temovate for LSA. Last mamm in 04/28 was neg. BMD in 2012 was nl. Pertinent positives in ROS addressed. 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 Vaginal burning and itching Vaginal burning and itching c/o burning vaginal discomfort x several mos. Tends to be intermittent. No apparent discharge or odor. annual exam Currently pregna nt: no. : 2. Parity: Term: 2. Negative for: breast discharge, breast lump(s), breast pain and breast self exam.Postmenopausal: Age: 57. Negative for Hormone replacement therapy. Menopausal symptoms negative for: hot flashes, insomnia, night sweats and vaginal dryness. There are no associated symptoms. Pertinent negatives include abnormal bleeding, anxiety, decreased libido, depression, difficulty falling sleep, dyspareunia, history of infertility, nocturia, sexual dysfunction, sleep disturbances, urinary incontinence, urinary urgency, vaginal discharge and vaginal itching. She takes calcium supplements. She reports taking Vitamin D. She does take multivitamins.The patient states her exercise level is sedentary and frequency is never. She does drink alcohol. Additional information: Lost 65 lbs. but has gained 20 of it back as they had to adjust her sleeve recently. She wants the fluid put back in it so she can loose weight again. Mammograms ok and colonoscopy needs to be done. BMD last year. Had hyst. Has upper back pain and saw clinic for pain at [facility]. Screening exam Functional Status Date Functional Assessmen t No Information Instructions Date Instruction Additional Infor raghu Giving encouragement to exercise Related to Body mass index [BMI] 31.0-31.9, adult Giving encouragement to exercise Related to Body mass index [BMI] 33.0-33.9, adult Giving encouragement to exercise Related to Body mass index [BMI] 33.0-33.9, adult Giving encouragement to exercise Related to Body mass index [BMI] 33.0-33.9, adult Giving encouragement to exercise Related to Body mass index [BMI] 33.0-33.9, adult Giving encouragement to exercise Related to Body mass index [BMI] 33.0-33.9, adult Recommendations and general gynecologic health issues were discussed including (if appropriate) concerns about menopause, bone density testing, vit D/Ca++ requirements, breast cancer screening (monthly BSE, yearly mammography), and colon cancer screening. Information to schedule mammography, BMD, and/or colonoscopy was provided as needed. She was also encouraged to see her primary physician for ongoing non-gynecologic medical care and screening. She was asked to return to the office in two yrs but was encouraged to contact me if needed in the intervening period. Related to Encounter for well woman exam with routine gynecological exam BMD today. Related to Other specified disorders of bone density and structure, other site Perform monthly self breast exam . Related to Encounter for well woman exam with routine gynecological exam Recommendations and general gynecologic health issues were discussed including (if appropriate) concerns about menopause, bone density testing, vit D/Ca++ requirements, breast cancer screening (monthly BSE, yearly mammography), and colon cancer screening. Information to scedule mammography, BMD, and/or colonoscopy was provided as needed. She was also encouraged to see her primary physician for ongoing non-gynecologic medical care and screening. She was asked to return to the office in one year but was encouraged to contact me if needed in the intervening period. Related to Encounter for gynecological examination without abnormal finding Will treat with juliano vate cream. To call if no resolution. Explained chronic nature if this condition and likely need for recurring use of temovate. Related to Lichen sclerosus et atrophicus of the vulva Assessments Type Assessment Date assessment Primary osteoarthritis of left k nee assessment Body mass index [BMI] 33.0-33.9, adult assessment Status post total right knee rep lacement Patient Care Teams Name Effective Dates (start - stop) Status Members No Information
--- OUTSIDE RECORDS SUMMARY | 2024-04-30 14:40 | XMS_ITS | Continuity of Care Document ---
Author Organization [facility] Address [address] [place] [address] Phone Care Team Providers Care Buckle Assembler Name Role Phone Miguel Vernon MD Unavailable Unavailable Medications Medication Instructions Dosage Effective Dates (start - stop) Status Comments FEXOFENADINE HCL 180 MG TABLET 1 QD-daily - Active XOPENEX HFA 45MCG PUFFS 2 Q 6HR - Active NASONEX 50 MCG NASAL SPRAY 2 QAM - Active PATANOL 0.1% EYE DROPS 1 BID - Act jb FEXOFENADINE HCL 180 MG TABLET 1 QD-daily - No Longer Active FEXOFENADINE HCL 180MG TABS 1 QD - No Longer Active NASONEX 50MCG APPLICS 2 QAM - No Longer Active PATANOL 0.1% DROPS 1 BID - No Longer Active Advance Directives Directive Yes / No Effective Date File Name No Information Encounters Encounter Description Practice Location Reason(s) For Visit Diagnoses Date Provider Providers Copied on Encounter [facility], [address], [place], [place], [address], [place] tel:[phone] [facility] No Information 1 Saulo Rivera. [address] [place] [address], [id number], [place]. tel:[phone] [facility], [address], [place], [place], [address], [place] tel:[phone] [facility] INTRINSIC ASTHMA NOSALLERGIC RHINITIS NEC 7 Saulo Rivera. [address], [id number], . [phone] [facility], [address], [place], [place], [address], tel:[phone] [facility] AC ATOPIC CONJUNCTIVITIS 6 Saulo Rivera. [address], [id number], . [phone] [facility], [address], [place], [place], [address], tel:[phone] [facility] BENIGN HYPERTENSION 6 Conversion Doctor. [address] [place] [address], [address], . Family History Family Member Type Diagnosis Age At Onset No Information Payers Payer name Insurance type Covered green party ID Authoriza tion(s) No Information Social History Type Description Quantity Date Captured [...]
--- OUTSIDE RECORDS SUMMARY | 2024-04-30 14:40 | XMS_ITS | Clinical Summary ---
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 Active acyclovir (ZOVIRAX) 5 % Ointment Apply to affected area every 4 hours. Active ALPRAZolam (XANAX) 0.5 mg tablet Take 0.5 mg by mouth nightly as needed for Anxiety. Active apixaban 5 mg tablet Take by mouth 2 times daily. Active gabapentin (NEURONTIN) 400 mg capsule Take 400 mg by mouth 3 times daily. Active multivitamin with minerals (HAIR,SKIN AND NAILS ORAL) Take by mouth. Active HYDROcodone-evelia taminophen (NORCO) 10-325 mg Tablet Take 1 Tablet by mouth every 4 hours as needed for Pain, Moderate. Active melatonin 5 mg Tablet Take by mouth nightly as needed. Active triamterene-hyd roCHLOROthiazid e (DYAZIDE) 37.5-25 mg capsule Take 1 Capsule by mouth daily in the morning. Active diphenhydramine HCl (WAL-DRYL ALLERGY ORAL) Take by mouth. Active diltiaZEM (CARDIZEM CD) 240 mg Controlled Delivery 24 hour capsule Take 240 mg by mouth daily. 05/05/2022 Active oxyBUTYnin chloride (DITROPAN XL) 10 mg Extended Release 24 hour tablet Take 10 mg by mouth daily. 05/21/2022 Active ibandronate (BONIVA) 150 mg tablet TAKE 1 TABLET BY MOUTH ONCE EVERY MONTH 3 Tablet 11/04/2023 Active Active Problems No known active problems Encounters Date Type Department Care Team Description 04/10/2024 External Device Data [facility] ABSTRACTION Provider, Abstract 04/04/2024 External Device Data [facility] ABSTRACTION Provider, Abstract 04/04/2024 External Device Data [facility] ABSTRACTION Provider, Abstract from Last 3 Months Family History Medical History Relation Name Comments Colon Cancer Father Breast Cancer Maternal Grandmother 80 Breast Cancer Mother age60 Breast Cancer Paternal Grandmother Breast Cancer Sister Cancer Son Rhabdomyosarcom a Ovarian Cancer Neg Hx Relation Name Status Comments Father Maternal Grandmother 80 Alive Mother age60 Alive Paternal Grandmother Sister Son Social History Tobacco Use Types Packs/Day Years Used Date Smoking Tobacco: Never Smokeless Tobacco: Never Tobacco Cessation:Counseling Given: Not Answered Alcohol Use Standard Drinks/Week Comments Yes 0 (1 standard drink = 0.6 oz pur e alcohol) Socially Comments No Sex and Gender Information Value Date Recorded Sex Assigned at Not on file Legal Sex Female 4:20 AM 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 RESIDENT Gender Identity Not on file Sexual Orientation Not on file Occupation Industry Job Start Date Job End Date Not on file Not on file Not on file Not on file Last Filed Vital Signs Vital Sign Reading Time Taken Comments Blood Pressure 118/82 08/03/2022 2:53 PM CDT Pulse - - Temperature - - Respiratory Rate - - Oxygen Saturation - - Inhaled Oxygen Concentration - - Weight 79.3 kg (174 lb 12.8 oz) 024 11:20 AM CDT Height 154.9 cm (5' 1 ) 07/19/2023 11:2 0 AM CDT Body Mass Index 33.03 07/19/2023 11:20 AM CDT Plan of Treatment Health Maintenance Due Date Last Done Comments DTAP/TDAP/TD VACCINES (1 - Tdap) 12/08/1966 PNEUMOCOCCAL VACCINE 65+ YEA RS (1 of 1 - PCV) 12/08/1997 ZOSTER VACCINE (1 of 2) 12/08/1997 RSV VACCINE (60+ or ) (1 - 1-dose 75+ series) 12/08/2022 INFLUENZA VACCINE (#1) 2023 OSTEOPOROSIS SCREENING Completed 4, 07/15/2022, 07/15/2022, Additional history exists Procedures Procedure Name Priority Date/Time Associated Diagnosis Comments XR DEXA BONE DENSITY AXIAL 1 OR MORE SITES Routine 07/19/2023 11:28 AM CDT Age-related osteoporosis without current pathological fracture Fracture Risk Assessment Score (FRAX) indicating greater than 3% risk for hip fracture Encounter for bone density measurement for therapeutic drug monitoring Encounter for monitoring ibandronate therapy from Last 3 Months or Most Recently Relevant to Health Maintenance Results * XR DEXA BONE DENSITY AXIAL 1 OR MORE SITES (07/19/2023 11:28 AM CDT) Anatomical Region Laterality Modality Computed Radiogr aphy Impressions 07/19/2023 12:52 PM CDT : Worst T-score is -1.7. However, her FRAX is still positive with a 3.5% risk of hip fracture in the next 10 years. This is osteoporosis. She had consultation last year and we discussed taking an oral bisphosphonate. Would still recommend treatment. All patients with osteoporosis are at high risk for fracture. us Justin Naidu MD DIAGNOSTIC IMAGING ORDERABLE S Final Result from Last 3 Months or Most Recently Relevant to Health [place] [address] Care Teams Coffee Plantation Worker Relationship Specialty Start Date End Date Jung Regalado MD [address] [place] [id number] PCP - General 01/20/09
--- OUTSIDE RECORDS SUMMARY | 2024-04-30 14:40 | XMS_ITS | Encounter Summary ---
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 [address] [place] [address] Abiola Stoddard MD [address] [facility] [address] [place] [address] Social History Tobacco Use Types Packs/Day Years [...] on filedocumented in this encounter Care Teams Pin Feather Machine Operator Relationship Specialty Start Date End Date Jung Regalado MD [address] [place] [id number] PCP - General 07/12/17 11/30/21 Zhanna Cordero MD [address] [place] [address] PCP - General 12/01/21 Jung Regalado MD [address] [place] [address] Family Medicine 03/16/10 documented as of this encounter
[2024-04-30 16:03] LABS: Add Urine Microscopic? YES; Appearance Urine Clear (Clear); Bacteria Urine 1+ /hpf; Bilirubin Urine Negative (Negative); Blood Urine Negative (Negative); Color Urine Yellow (Yellow); Glucose Urine UA Negative (Negative); Ketones Urine Trace mg/dL (Negative); Leukocyte Esterase Ur 1+ LEU/UL (Negative); Nitrate Urine Negative (Negative); Non Pathogenic Casts 0-2; Protein Urine Negative (Negative); RBC Urine 0-2 /hpf (0-2); Specific Grav Ur 1.019 (1.001-1.035); Squamous Epithelial Cell Urine Few /hpf (Few); Urobilinogen Urine 0.2 mg/dL (<2.0)
--- OUTSIDE RECORDS SUMMARY | 2024-04-30 16:36 | XMS_ITS | Patient Health Summary ---
Author Organization [facility] [employer] Address [address] [place] [address] Care Team Providers Care Sponge Maker Name Role Phone Jung Regalado MD Unavailable [phone] Zhanna Cordero MD Primary Care Provider [phone] Note from [facility],non-owned Affiliates and Associated Physician Practices is amultiple site organization consisting of ambulatory clinics and hospital sitesin [place], [place], [place] and [place]. This disclosure is being madepursuant to the Care Everywhere program and may not contain all information available regarding this patient. Last updated 17.[facility] Allergies No known active allergies Medications * [...] and heating? Not hard at all 09/16/2023 [facility] - Occupational [...] place to sleep or slept in a fdc (including now)? No 09/16/2023 Sex and Gender [...] AM CDT Medical Devices Implanted Type Area Commercial Leasing Agent Device Identifier Shelf Expiration Date Model / Serial / Lot Cmpnt Ptlr S 31x9mm Tritanium Strl Lf Implanted:Qty: 1 on 02/05/2022 by Jason Vargas DO at [facility] Right: Knee [employer] 01/08/2027 [id number] / / [id number] Bsplt Tib Trthlm 4 Kn Tritanium Implanted:Qty: 1 on 02/05/2022 by Jason Vargas DO at [facility] Right: Knee [employer] 2026 [id number] / / [id number] Cmpnt Fem Kn Rt 3 Crcte Rtn Bead Trthln Implanted:Qty: 1 on 02/05/2022 by Jason Vargas DO at [facility] Right: Knee [employer] 11/21/2026 [id number] / / [id number] Ins Tib 4 9mm Kn X3 Crcte Sub Trthln Implanted:Qty: 1 on 02/05/2022 by Jason Vargas DO at [facility] Right: Knee [employer] 12/02/2026 [id number] [...] for Primary osteoarthritis of right knee * CO TOTAL KNEE REPLACEMENT(Performed 02/05/2022) * PERIPHERAL BLOCK(Performed [...] 07/19/1997) Results * DERMATOPATHOLOGY (02/22/2024 8:43 AM BINDERY ASSISTANT) Only the most recent of8 resultswithin the time period is included. Case Report Dermatopathology Report Case: [id number] Authorizing Provider: Hilaria Kaur DO Collected: 02/22/2024 08:43 AM Ordering Location: [facility] - Received: 02/22/2024 03:46 PM DermPath Lab Pathologist: Antonieta Zazueta MD Specimen: Skin, right upper arm 4 12:06 PM [facility] DERMATOPATHOLOGY [facility]ORATORY Final Diagnosis Specimen A. 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 The specimen consists of a non-oriented ellipse of skin measuring 66d62g7 mm. The epidermal surface is unremarkable. The margin is inked green. The 12 o'clock and 6 o'clock tips are submitted in cassette 1. The remainder of the ellipse is serially sectioned and submitted in cassette 2. Jar 0. 4 12:06 PM [facility] DERMATOPATHOLOGY [facility]ORATORY Microscopic Description Specimen A. SKIN, right upper arm: There are fibroblasts and collagen bundles oriented parallel to the skin surface. There are elongated blood vessels, some of which are oriented perpendicular to the skin surface. No residual squamous cell carcinoma is identified. 4 12:06 PM [facility] DERMATOPATHOLOGY [facility]ORATORY Disclaimer An external and internal positive and negative controls are appropriate for the histochemical, immunohistochemical and immunofluorescence stain(s) in this case (if any), except where stated explicitly. The performance characteristics of the stain(s) cited in this report were developed and its performance characteristic determined by the Dermatopathology Laboratory at [facility], directed by Dr. Nica Diaz. These tests need not be, and therefore are not, approved by the [place] Food and Drug Administration. The tests are used for clinical purposes. Billing Codes Specimen Charges Stain Charges 07742 1 4 12:06 PM [facility] DERMATOPATHOLOGY [facility]OR[facility]ORY Embedded Images 4 12:06 PM [facility] D[facility]MATOPATH[facility] Pathology/Cytolo gy TISSUE SPECIMEN FROM SKIN / Unknown 02/22/2024 8:43 AM BINDERY ASSISTANT 02/22/2024 3:46 PM BINDERY ASSISTANT Hilaria Kaur DO LAB - PATHOLOGY/C YTOLOGY ORDERABLES DERMATOPATHOLOGY LABORATORY [facility] Department of Dermatology [facility] [address] [place] [address], [facility] [phone] * (ABNORMAL) GLUCOSE - POINT OF CARE (09/23/2023 12:31 PM CDT) Only the most recent of9 resultswithin the time period is included. [facility] Glucose WB/POC 225(H) 70 - 115 mg/dL 09/23/2023 12:36 PM CDT [facility] Specimen Type Cap Fingerstick 2023 12:36 PM CDT [facility] Blood BLOOD SPECIMEN / Unknown 09/23/2023 12:31 PM CDT 09/23/2023 12:36 PM CDT Val Gross MD LAB - POINT OF CARE ORDERABLES Performing Organization Address [facility]/ZIP Co de Phone Number [facility] [address] [place] [address], [facility] [phone] * VANCOMYCIN LEVEL TROUGH (09/23/2023 11:22 AM CDT) Only the most recent of2 resultswithin the time period is included. [facility] Vancomycin Trough 11.1 10.0 - 20.0 ug/mL 09/23/2023 11:53 AM CDT [facility] Blood BLOOD SPECIMEN / Unknown Lab Venipuncture / Unknown 09/23/2023 11:22 AM CDT 09/23/2023 11:25 AM CDT Narrative [facility] - 09/23/2023 11:53 AM CDT See institution protocol. Val Gross MD LAB - CHEMI STRY ORDERABLES [address] [address], [facility] [phone] * HEMOGLOBIN A1C (09/23/2023 7:14 AM CDT) [facility] Hemoglobin A1c 5.4 <=5.6 % 09/23/2023 11:51 AM [facility] Estimated Average Glucose 108 mg/dL 09/23/2023 11:51 AM [facility] Comment: HbA1c Interpretation: Normal : < 5.7% Pre-diabetes: 5.7-6.4% Diabetes: Equal to or greater than 6.5% Test results diagnostic of diabetes should be repeated for confirmation. Treatment target values recommended by ADA and other clinical organizations should be used to evaluate metabolic control in patients. Reference: [place] [employer] Association, Standards of Care in Diabetes [...] Gross MD LAB - CHEMI STRY ORDERABLES [address] [address], [facility] [phone] * (ABNORMAL) CBC W/O DIFFERENTIAL (09/23/2023 7:14 AM CDT) Only the most recent of7 resultswithin the time period is included. WBC 12.6(H) 4.0 - 10.7 x10E9/L 09/23/2023 8:06 AM [facility] RBC Count 4.02 3.90 - 5.20 x10E12/L 09/23/2023 8:06 AM [facility] Hemoglobin 13.2 11.9 - 15.8 g/dL 09/23/2023 8:06 AM [facility] Hematocrit 37.3 34.8 - 46.1 % 09/23/2023 8:06 AM [facility] MCV 92.8 80.0 - 98.0 fL 09/23/2023 8:06 AM [facility] MCH 32.8 26.7 - 33.6 pg 09/23/2023 8:06 AM [facility] MCHC 35.4 31.7 - 36.3 g/dL 09/23/2023 8:06 AM [facility] RDW-CV 13.2 11.3 - 14.8 % 09/23/2023 8:06 AM [facility] Platelet Count 265 150 - 420 x10E9/L 09/23/2023 8:06 AM [facility] MPV 10.2 7.8 - 11.4 fL 09/23/2023 8:06 AM [facility] Blood BLOOD SPECIMEN / Unknown Lab Venipuncture / Unknown 09/23/2023 7:14 AM CDT 09/23/2023 7:52 AM CDT Shree Espinoza MD LAB - HEMATOLOGY ORD ERABLES [address] [address] [phone] * (ABNORMAL) BASIC METABOLIC PANEL (CALCIUM TOTAL) (09/23/2023 7:14 AM CDT) Only the most recent of7 resultswithin the time period is included. BUN 15 7 - 26 mg/dL 09/23/2023 8:16 AM [facility] Creatinine 0.57 0.56 - 0.96 mg/dL 09/23/2023 8:16 AM [facility] Sodium 143 136 - 145 mmol/L 09/23/2023 8:16 AM [facility] Potassium 3.0(L) 3.5 - 4.5 mmol/L 09/23/2023 8:16 AM [facility] Chloride 110(H) 98 - 107 mmol/L 09/23/2023 8:16 AM [facility] CO2 24 22 - 29 mmol/L 09/23/2023 8:16 AM [facility] Glucose 176(H) 70 - 115 mg/dL 09/23/2023 8:16 AM [facility] Calcium 8.0(L) 8.4 - 10.2 mg/dL 09/23/2023 8:16 AM CDT [facility] Anion Gap 9 6 - 16 09/23/2023 8:16 AM CDT [facility] BUN/Creatinine Ratio 26(H) 7 - 23 09/23/2023 8:16 AM CDT [facility] Osmolality Calculated 301(H) 275 - 295 mOsm/kg 09/23/2023 8:16 AM T [facility] eGFR by CKD-EPI >90 >=90 mL/min/1.7 3 m2 09/23/2023 8:16 AM CDT [facility] Blood BLOOD SPECIMEN / Unknown Lab Venipuncture / Unknown 09/23/2023 7:14 AM CDT 09/23/2023 7:52 AM CDT Shree Espinoza MD LAB - CHEMISTRY HECTOR WELCH Performing Organization Address City/[facility]/ZIP Co de Phone Number [address] [address], [facility] [phone] * (ABNORMAL) PHOSPHORUS BLOOD (09/23/2023 7:14 AM CDT) Only the most recent of7 resultswithin the time period is included. Phosphorus 1.7(L) 2.9 - 5.1 mg/dL 09/23/2023 8:16 AM CDT [facility] Blood BLOOD SPECIMEN / Unknown Lab Venipuncture / Unknown 09/23/2023 7:14 AM CDT 09/23/2023 7:52 AM CDT Shree Espinoza MD LAB - CHEMISTRY HECTOR WELCH [address] [address], [place] [phone] * MAGNESIUM BLOOD (09/23/2023 7:14 AM CDT) Only the most recent of8 resultswithin the time period is included. Magnesium 1.6 1.6 - 2.6 mg/dL 09/23/2023 8:16 AM CDT [facility] Blood BLOOD SPECIMEN / Unknown Lab Venipuncture / Unknown 09/23/2023 7:14 AM CDT 09/23/2023 7:52 AM CDT Shree Espinoza MD LAB - CHEMISTRY HECTOR Lange Organization Address City/State/ZIP Co de Phone Number [facility] [address] [place] [address], [facility] [phone] * MRI BRAIN WO CONTRAST (09/22/2023 5:26 PM CDT) Anatomical Region Laterality Modality Head Magnetic Resonan ce 09/23/2023 7:10 AM CDT Impressions 09/23/2023 8:59 AM CDT IMPRESSION: No acute intracranial abnormality. > Dictated by Jagjit Ceballos DO (radiology therapist). I, Emerald Bess MD have personally reviewed and interpreted this examination/study. > Interpreting Provider: Emerald Bess MD on 09/23/2023 8:59 AM Narrative 09/23/2023 8:59 AM CDT PROCEDURE: MRI BRAIN WO CONTRAST, DATE/TIME OF EXAM: 09/22/2023 5:27 PM, LOCATION [facility] INDICATION: M19.90: Arthritis ADDITIONAL CLINICAL INFORMATION: [...] and basilar artery. The calvarium appears normal. Jeod-fx-jtmkpqlz degenerative changes in the partially visualized cervical spine. Procedure Note Emerald Bess MD - 09/23/2023 PROCEDURE: MRI BRAIN WO CONTRAST, DATE/TIME OF EXAM: 09/22/2023 5:27PM, LOCATION [facility] INDICATION: M19.90: Arthritis ADDITIONAL CLINICAL INFORMATION: [...] arteriesand basilar artery. The calvarium appears normal. Lhxx-sv-hjwvjyaw degenerative changes in the partially visualizedcervical spine. IMPRESSION: No acute intracranial abnormality. > Dictated by Jagjit Ceballos DO (radiology therapist). I, Emerald Bess MD have personally reviewed [...] Dictated by Ralf Mc D.O. - Diagnostic Candy Cooker Helper. I, Chris Villa MD, PhD have personally reviewed and interpreted this examination/study. > Interpreting Provider: Chris Villa MD, PhD on 09/22/2023 3:05 AM Narrative 09/22/2023 3:05 AM CDT EXAM: CT CERVICAL SPINE WO CONTRAST, CT THORACIC SPINE WO CONTRAST, CT LUMBAR SPINE WO CONTRAST, DATE/TIME OF EXAM: 09/21/2023 8:00 PM, LOCATION: [facility] HISTORY: M54.9: Back pain, subacute ADDITIONAL CLINICAL INFORMATION: Ordering Provider Reason For Exam: Cervical radiculopathy (accession [id number]), myelopathy/radiculopathy (accession [id number]), radiculopathy/myelopathy? (accession [id number]) EXAMINATION: CT scan of the cervical, thoracic, [...] DISCS: Multilevel degenerative discogenic changes with notable xipzftvp-ie-watpec disc space narrowing at the C3-C4 level where there is partial ankylosis of the C3 and C4 vertebral bodies and pezl-le-dtwqwqlu disc space narrowing elsewhere. DEGENERATIVE CHANGES: Overall [...] complexes. Multilevel neuroforaminal narrowing that is notably qjux-vr-fincnjik at the bilateral C3-C4 level, nuvuykww-ai-vwfxfl at the left C4-C5 level, and moderate [...] at the L2-L3 and L3-L4 levels and sponeipv-rs-ctkijk at the L4-L5 level secondary to posterior disc bulges, ligamentum flavum hypertrophy, and bilateral facet arthropathy. Multilevel neuroforaminal narrowing that is notably moderate at the right L2-L3 and left L5-S1 levels and tpbo-lr-opqunxhk elsewhere. SOFT TISSUES: Symmetric fatty atrophy of the posterior paraspinal musculature. OTHER: Multiple scattered sigmoid colon diverticula without evidence of diverticulitis. Minimal calcific atherosclerosis of the abdominal aorta. Procedure Note Chris Villa MD - 09/22/2023 EXAM: CT CERVICAL SPINE WO CONTRAST, CT THORACIC SPINE WO CONTRAST, CT LUMBAR SPINE WO CONTRAST, DATE/TIME OF EXAM: 09/21/2023 8:00 PM, LOCATION: [facility] HISTORY: M54.9: Back pain, subacute ADDITIONAL CLINICAL INFORMATION: Ordering Provider Reason For Exam: Cervical radiculopathy (accession [id number]), myelopathy/radiculopathy (accession [id number]), radiculopathy/myelopathy? (accession [id number]) EXAMINATION: CT scan of the cervical, thoracic, [...] DISCS: Multilevel degenerative discogenic changes with notable bbgrspqv-qy-rchloo disc space narrowing at the C3-C4 level where thereis partial ankylosis of the C3 and C4 vertebral bodies and axcw-fi-kgyhdguo disc space narrowing elsewhere. DEGENERATIVE CHANGES: Overall moderate multilevel degenerative changes, characterized by varying degrees of anterior endplate osteophytes, posterior disc bulges/osteophyte complexes, facet arthropathy, and uncovertebral joint hypertrophy. Osseous fusion of the right greaterthan left C3-C4 facets. SPINAL CANAL/NEUROFORAMEN: Multilevel mild spinal canal stenoses fromthe C3-C4 through the C 67 levels secondary to posterior discbulges/osteophyte complexes. Multilevel neuroforaminal narrowing that is notably pdqi-ov-zharwbyq at the bilateral C3-C4 level, irxhkabg-st-vzpvkq at the left C4-C5 level, and moderate [...] at the L2-L3 and L3-L4 levels and rruhdfbh-mh-nlijun at the L4-L5 level secondary to posterior disc bulges, ligamentum flavum hypertrophy, and bilateral facet arthropathy. Multilevel neuroforaminal narrowingthat is notably moderate at the right L2-L3 and left L5-S1 levels and uoph-es-vnltkcca elsewhere. SOFT TISSUES: Symmetric fatty atrophy of [...] Dictated by Elis Young.Mary Ann. - Diagnostic Candy Cooker Helper. I, Chris Villa MD, PhD have personally [...] Dictated by Ralf Mc D.O. - Diagnostic Candy Cooker Helper. I, Chris Villa MD, PhD have personally reviewed and interpreted this examination/study. > Interpreting Provider: Chris Villa MD, PhD on 09/22/2023 3:05 AM Narrative 09/22/2023 3:05 AM CDT EXAM: CT CERVICAL SPINE WO CONTRAST, CT THORACIC SPINE WO CONTRAST, CT LUMBAR SPINE WO CONTRAST, DATE/TIME OF EXAM: 09/21/2023 8:00 PM, LOCATION: [facility] HISTORY: M54.9: Back pain, subacute ADDITIONAL CLINICAL INFORMATION: Ordering Provider Reason For Exam: Cervical radiculopathy (accession [id number]), myelopathy/radiculopathy (accession [id number]), radiculopathy/myelopathy? (accession [id number]) EXAMINATION: CT scan of the cervical, thoracic, [...] DISCS: Multilevel degenerative discogenic changes with notable ighmzasv-ue-yamwuy disc space narrowing at the C3-C4 level where there is partial ankylosis of the C3 and C4 vertebral bodies and fywx-bn-mbfwcwhr disc space narrowing elsewhere. DEGENERATIVE CHANGES: Overall [...] complexes. Multilevel neuroforaminal narrowing that is notably vgfk-pm-kphzmtxt at the bilateral C3-C4 level, dtbneejj-fs-qzrfny at the left C4-C5 level, and moderate [...] at the L2-L3 and L3-L4 levels and ssdytgti-eg-twjfln at the L4-L5 level secondary to posterior disc bulges, ligamentum flavum hypertrophy, and bilateral facet arthropathy. Multilevel neuroforaminal narrowing that is notably moderate at the right L2-L3 and left L5-S1 levels and quwn-rs-tugrrvfu elsewhere. SOFT TISSUES: Symmetric fatty atrophy of the posterior paraspinal musculature. OTHER: Multiple scattered sigmoid colon diverticula without evidence of diverticulitis. Minimal calcific atherosclerosis of the abdominal aorta. Procedure Note Chris Villa MD - 09/22/2023 EXAM: CT CERVICAL SPINE WO CONTRAST, CT THORACIC SPINE WO CONTRAST, CT LUMBAR SPINE WO CONTRAST, DATE/TIME OF EXAM: 09/21/2023 8:00 PM, LOCATION: [facility] HISTORY: M54.9: Back pain, subacute ADDITIONAL CLINICAL INFORMATION: Ordering Provider Reason For Exam: Cervical radiculopathy (accession [id number]), myelopathy/radiculopathy (accession [id number]), radiculopathy/myelopathy? (accession [id number]) EXAMINATION: CT scan of the cervical, thoracic, [...] DISCS: Multilevel degenerative discogenic changes with notable czfdsvke-kw-qagdjs disc space narrowing at the C3-C4 level where thereis partial ankylosis of the C3 and C4 vertebral bodies and dgst-cb-xuyjvvpx disc space narrowing elsewhere. DEGENERATIVE CHANGES: Overall moderate multilevel degenerative changes, characterized by varying degrees of anterior endplate osteophytes, posterior disc bulges/osteophyte complexes, facet arthropathy, and uncovertebral joint hypertrophy. Osseous fusion of the right greaterthan left C3-C4 facets. SPINAL CANAL/NEUROFORAMEN: Multilevel mild spinal canal stenoses fromthe C3-C4 through the C 67 levels secondary to posterior discbulges/osteophyte complexes. Multilevel neuroforaminal narrowing that is notably kseh-ak-ywbetnau at the bilateral C3-C4 level, pxzegijg-uj-riayoj at the left C4-C5 level, and moderate [...] at the L2-L3 and L3-L4 levels and ggywhcdv-ny-taetvq at the L4-L5 level secondary to posterior disc bulges, ligamentum flavum hypertrophy, and bilateral facet arthropathy. Multilevel neuroforaminal narrowingthat is notably moderate at the right L2-L3 and left L5-S1 levels and otdj-at-zzggpuuq elsewhere. SOFT TISSUES: Symmetric fatty atrophy of [...] Dictated by Ralf Mc D.O. - Diagnostic Candy Cooker Helper. Chris Coy MD, PhD have personally reviewed [...] Dictated by Ralf Mc D.O. - Diagnostic Candy Cooker Helper. Chris Coy MD, PhD have personally reviewed and interpreted this examination/study. > Interpreting Provider: Chris Villa MD, PhD on 09/22/2023 3:05 AM Narrative 09/22/2023 3:05 AM CDT EXAM: CT CERVICAL SPINE WO CONTRAST, CT THORACIC SPINE WO CONTRAST, CT LUMBAR SPINE WO CONTRAST, DATE/TIME OF EXAM: 09/21/2023 8:00 PM, LOCATION: [facility] HISTORY: M54.9: Back pain, subacute ADDITIONAL CLINICAL INFORMATION: Ordering Provider Reason For Exam: Cervical radiculopathy (accession [id number]), myelopathy/radiculopathy (accession [id number]), radiculopathy/myelopathy? (accession [id number]) EXAMINATION: CT scan of the cervical, thoracic, [...] DISCS: Multilevel degenerative discogenic changes with notable fhhnmljr-wl-bnzggy disc space narrowing at the C3-C4 level where there is partial ankylosis of the C3 and C4 vertebral bodies and epcl-mh-hytyhdgi disc space narrowing elsewhere. DEGENERATIVE CHANGES: Overall [...] complexes. Multilevel neuroforaminal narrowing that is notably hjfv-sz-bwusqeug at the bilateral C3-C4 level, mlqimxhr-lp-gztlck at the left C4-C5 level, and moderate [...] at the L2-L3 and L3-L4 levels and ookvwffo-tc-ljafun at the L4-L5 level secondary to posterior disc bulges, ligamentum flavum hypertrophy, and bilateral facet arthropathy. Multilevel neuroforaminal narrowing that is notably moderate at the right L2-L3 and left L5-S1 levels and hrmi-vy-xeilcyxe elsewhere. SOFT TISSUES: Symmetric fatty atrophy of the posterior paraspinal musculature. OTHER: Multiple scattered sigmoid colon diverticula without evidence of diverticulitis. Minimal calcific atherosclerosis of the abdominal aorta. Procedure Note Chris Villa MD - 09/22/2023 EXAM: CT CERVICAL SPINE WO CONTRAST, CT THORACIC SPINE WO CONTRAST, CT LUMBAR SPINE WO CONTRAST, DATE/TIME OF EXAM: 09/21/2023 8:00 PM, LOCATION: [facility] HISTORY: M54.9: Back pain, subacute ADDITIONAL CLINICAL INFORMATION: Ordering Provider Reason For Exam: Cervical radiculopathy (accession [id number]), myelopathy/radiculopathy (accession [id number]), radiculopathy/myelopathy? (accession [id number]) EXAMINATION: CT scan of the cervical, thoracic, [...] DISCS: Multilevel degenerative discogenic changes with notable okffljqc-fm-klboud disc space narrowing at the C3-C4 level where thereis partial ankylosis of the C3 and C4 vertebral bodies and lfoe-gt-pjbkrikk disc space narrowing elsewhere. DEGENERATIVE CHANGES: Overall moderate multilevel degenerative changes, characterized by varying degrees of anterior endplate osteophytes, posterior disc bulges/osteophyte complexes, facet arthropathy, and uncovertebral joint hypertrophy. Osseous fusion of the right greaterthan left C3-C4 facets. SPINAL CANAL/NEUROFORAMEN: Multilevel mild spinal canal stenoses fromthe C3-C4 through the C 67 levels secondary to posterior discbulges/osteophyte complexes. Multilevel neuroforaminal narrowing that is notably thzn-sa-tcaknjgd at the bilateral C3-C4 level, rldapdle-tk-coxhxo at the left C4-C5 level, and moderate [...] at the L2-L3 and L3-L4 levels and vjruvroe-uv-ovkzds at the L4-L5 level secondary to posterior disc bulges, ligamentum flavum hypertrophy, and bilateral facet arthropathy. Multilevel neuroforaminal narrowingthat is notably moderate at the right L2-L3 and left L5-S1 levels and knrb-xl-yjxnroxc elsewhere. SOFT TISSUES: Symmetric fatty atrophy of [...] Dictated by Ralf Mc D.O. - Diagnostic Candy Cooker Helper. I, Chris Villa MD, PhD have personally reviewed and interpreted this examination/study. > Interpreting Provider: Chris Villa MD, PhD on 09/22/2023 3:05 AM Val Gross MD CT ORDERABL ES * (ABNORMAL) POTASSIUM BLOOD (09/19/2023 3:50 PM CDT) Potassium 3.1(L) 3.5 - 4.5 mmol/L 09/19/2023 4:18 PM CDT [facility] Blood BLOOD SPECIMEN / Unknown Lab Venipuncture / Unknown 09/19/2023 3:50 PM CDT 09/19/2023 3:55 PM CDT Shree Espinoza MD LAB - CHEMISTRY HECTOR WELCH [facility] Organization Address City/State/ZIP Co de Phone Number [facility] [address] [address], [facility] [phone] * VDRL CSF W REFLEX TO TITER (09/19/2023 3:29 PM CDT) VDRL CSF Non Reactive Non Reactive 09/29/2023 9:03 AM CDT [facility] ([facility]) Comment: The CSF specimen shows evidence of [...] was performed at client's request. Performed By: [facility] [employer] [address] [place] [address] Lan Specialist: Jacinto Enriquez MD, PhD CLIA Number: [id number] Cerebral spinal fluid CEREBROSPINAL FLUID SPECIMEN / Unknown Collection / Unknown 09/19/2023 3:29 PM CDT 09/19/2023 3:29 PM CDT Narrative [facility] ([facility]) - 09/29/2023 9:03 AM CDT Test results should be interpreted with caution. Assay was performed at client's request on a sub-optimal specimen. Shree Espinoza MD LAB - BODY FLUID ORD ERABLES Performing Organization Address City/[facility]/ZIP Co de Phone Number [facility]) [address] [place] [address] * CULTURE FUNGUS OTHER+FUNGUS SMEAR (09/19/2023 3:18 PM CDT) Culture No fungus isolated [facility] 10/17/2023 9:39 AM CDT [facility] Fungus Stain No yeast or hyphae seen 10/17/2023 9:39 AM CDT [facility] Microbiology CEREBROSPINAL FLUID SPECIMEN / Unknown Collection / Unknown 09/19/2023 3:18 PM CDT 09/19/2023 3:18 PM CDT Shree Espinoza MD LAB - MICROBIOLOGY O RDERABLES [facility] MICROBIOLOGY [address] [place] [phone] * MENINGITIS/ENCEPHALITIS PANEL CSF (09/19/2023 3:18 PM [...] Not detected 09/19/2023 9:39 PM CDT [facility] MICROBIOLOGY Streptococcus pneumoniae Not detected Not detected 09/19/2023 9:39 PM CDT [facility] MICROBIOLOGY Cytomegalovirus Not detected Not detected 09/19/2023 9:39 PM CDT [facility] MICROBIOLOGY Enterovirus Not detected Not detected 09/19/2023 9:39 PM CDT [facility] MICROBIOLOGY Herpes simplex Virus 1 Not detected Not detected 09/19/2023 9:39 PM CDT [facility] MICROBIOLOGY Herpes simplex Virus 2 Not detected Not detected 09/19/2023 9:39 PM CDT [facility] MICROBIOLOGY Human Herpesvirus 6 Not detected Not detected 09/19/2023 9:39 PM CDT [facility] MICROBIOLOGY Human Parechovirus Not detected Not detected 09/19/2023 9:39 PM CDT [facility] MICROBIOLOGY Varicella zoster Virus Not detected Not detected 09/19/2023 9:39 PM CDT [facility] MICROBIOLOGY Cryptococcus neoformans/gattii Not detected Not detected 09/19/2023 9:39 PM CDT [facility] MICROBIOLOGY Microbiology CEREBROSPINAL FLUID SPECIMEN / Unknown Collection / Unknown 09/19/2023 3:18 PM CDT 09/19/2023 3:18 PM CDT Narrative [facility] MICROBIOLOGY - 09/19/2023 9:39 PM CDT Meningitis/Encephalitis PCR CSF Panel performed by [employer] Film[employer] multiplex PCR. A negative FilmArray ME Panel result does not exclude the possibility of INSPECT[employer] PAWNSH[employer] DETAIL infection and should not be used as [...] Espinoza MD LAB - MICROBIOLOGY O RDERABLES [facility] MICROBIOLOGY [address] [place] [address], [facility] [phone] * HERPES SIMPLEX 1+2 PCR CSF (09/19/2023 3:16 PM CDT) Herpes Simplex Virus 1 PCR CSF Not detected Not detected 09/19/2023 9:39 PM CDT [facility] MICROBIOLOGY Herpes Simplex Virus 2 PCR CSF Not detected Not detected 09/19/2023 9:39 PM CDT [facility] MICROBIOLOGY Microbiology CEREBROSPINAL FLUID SPECIMEN / Unknown Collection / Unknown 09/19/2023 3:16 PM CDT 09/19/2023 3:16 PM CDT Shree Espinoza MD LAB - MICROBIOLOGY O KIKI Performing Organization Address City/[facility]/ZIP Co de Phone Number [facility] MICROBIOLOGY [address] [place] [address], [facility] [phone] * PARANEOPLASTIC AUTOANTIBODY EVAL CSF (09/19/2023 3:15 PM CDT) Pathologist [facility] [place] See Scanned Document BLAKELY 09/24/2023 2:07 PM CDT [facility] REF LAB NON INTERF Cerebral spinal fluid CEREBROSPINAL FLUID SPECIMEN / Unknown Collection / Unknown 09/19/2023 3:15 PM CDT 09/19/2023 3:15 PM CDT Shree Espinoza MD LAB - BODY FLUID ORD ERABLES Performing Organization Address [facility] Co de Phone Number [facility] REF LAB NON INTERF [address] [place] [address], [facility] [phone] * CRYPTOCOCCUS ANTIGEN CSF (09/19/2023 3:15 PM CDT) Pathologist [facility] Cryptococcus Antigen CSF Negative Negative 09/19/2023 8:40 PM CDT [facility] MICROBIOLOGY Cerebral spinal fluid CEREBROSPINAL FLUID SPECIMEN / Unknown Collection / Unknown 09/19/2023 3:15 PM CDT 09/19/2023 3:15 PM CDT Shree Espinoza MD LAB - MICROBIOLOGY O KIKI Performing Organization Address City/[facility]/ZIP Co de Phone Number [facility] MICROBIOLOGY [address] [place] [address], [facility] [phone] * CULTURE AFB+SMEAR (09/19/2023 3:15 PM CDT) Culture No acid-fast bacillus isolated 10/31/2023 2:03 PM CDT [facility] MICROBIOLOGY AFB Smear No acid-fast bacilli seen 10/31/2023 2:03 PM CDT [facility] MICROBIOLOGY Microbiology CEREBROSPINAL FLUID SPECIMEN / Unknown Collection / Unknown 09/19/2023 3:15 PM CDT 09/19/2023 3:16 PM CDT Shree Espinoza MD LAB - MICROBIOLOGY O KIKI [facility] MICROBIOLOGY [address] [place] [address], [facility] [phone] * VIRAL CULTURE MISC (09/19/2023 3:15 PM CDT) Final Report SEE NOTE 09/30/2023 11:20 AM CDT [facility] ([facility]) Comment: Culture negative For [employer]AIL infections due to cultivable viruses (e.g., herpes simplex virus, enterovirus), nucleic-acid amplification based methods are superior to culture- based methods and should be performed if clinically indicated. Performed By: [facility] [address] [place] [address] Lan Specialist: Jacinto Enriquez MD, PhD CLIA Number: [id number] Prelim Report SEE NOTE 09/30/2023 11:20 AM CDT [facility] ([facility]) Comment: Specimen received and in progress. Performed By: [facility] [address] [place] [address] Lan Specialist: Jacinto Enriquez MD, PhD CLIA Number: [id number] Microbiology CEREBROSPINAL FLUID SPECIMEN / Unknown Collection / Unknown 09/19/2023 3:15 PM CDT 09/19/2023 3:15 PM CDT Shree Espinoza MD LAB - MICROBIOLOGY O KIKI [facility]) [address] * HOLD SPECIMEN CSF (09/19/2023 3:14 PM CDT) Specimen Hold In extra BF rack 09/19/2023 3:19 PM CDT [facility] Cerebral spinal fluid CEREBROSPINAL FLUID SPECIMEN / Unknown Collection / Unknown 09/19/2023 3:14 PM CDT 09/19/2023 3:14 PM CDT Shree Espinoza MD LAB - BODY FLUID ORD ERABLES [facility] [address] [place] [address], [facility] [phone] * [place] ANTIBODY IGG/IGM CSF PANEL (09/19/2023 3:14 PM CDT) West Nile IgG Ab CSF 0.04 <=1.29 IV 09/30/2023 3:01 PM CDT [facility] ([facility]) Comment: INTERPRETIVE INFORMATION: West Nile Virus Ab [...] members of the Flaviviridae family, such as Hilton encephalitis virus, show extensive cross-reactivity with West [...] developed and its performance characteristics determined by [facility]. It has not been cleared or approved by the US Food and Drug Administration. This test was performed in a CLIA certified laboratory and is intended for clinical purposes. West Nile IgM Ab CSF 0.00 <=0.89 IV 09/30/2023 3:01 PM CDT [facility] ([facility]) Comment: INTERPRETIVE INFORMATION: West Nile Virus Ab [...] members of the Flaviviridae family, such as Hilton encephalitis virus, show extensive cross-reactivity with West [...] developed and its performance characteristics determined by [facility]. It has not been cleared or approved by the US Food and Drug Administration. This test was performed in a CLIA certified laboratory and is intended for clinical purposes. Performed By: [facility] [address] [place] [address] Lan Specialist: Jacinto Enriquez MD, PhD CLIA Number: [id number] Cerebral spinal fluid CEREBROSPINAL FLUID SPECIMEN / Unknown Collection / Unknown 09/19/2023 3:14 PM CDT 09/19/2023 3:14 PM CDT Shree Espinoza MD LAB - BODY FLUID ORD ERABLES [facility] ([facility]) [address] * CULTURE CSF+GRAM STAIN (09/19/2023 3:13 PM CDT) Culture No growth HETAL 09/26/2023 4:52 AM CDT [facility] MICROBIOLOGY Gram Stain Heavy Red blood cells 09/26/2023 4:52 AM CDT [facility] MICROBIOLOGY Gram Stain No polymorphonuclear cells 09/26/2023 4:52 AM CDT [facility] MICROBIOLOGY Gram Stain No organisms seen 024 4:52 AM CDT [facility] MICROBIOLOGY Cerebral spinal fluid CEREBROSPINAL FLUID SPECIMEN / Unknown 09/19/2023 3:13 PM CDT 09/19/2023 3:13 PM CDT Shree Espinoza MD LAB - MICROBIOLOGY O RDERABLES [facility] MICROBIOLOGY [address] [place] [address], [facility] [phone] * (ABNORMAL) CELL COUNT W DIFFERENTIAL CSF (09/19/2023 3:13 PM CDT) Tube Number TUBE 4 09/19/2023 3:35 PM CDT [facility] Xanthochromia ABSENT ABSENT 09/19/2023 3:35 PM CDT [facility] CSF Appearance SLIGHTLY HAZY 09/19/2023 3:35 PM CDT [facility] CSF Color OTHER 09/19/2023 3:35 PM CDT [facility] Comment:Quay Total Nucleated Cells CSF 4 <=5 x10E6/L 09/19/2023 3:35 PM CDT [facility] Comment:TNC less than or equ al to 5. No differential reported per policy. RBC Count CSF 2,000(H) <1 x10E6/L 09/19/2023 3:35 PM CDT [facility] Cerebral spinal fluid CEREBROSPINAL FLUID SPECIMEN / Unknown Collection / Unknown 09/19/2023 3:13 PM CDT 09/19/2023 3:13 PM CDT Shree Espinoza MD LAB - BODY FLUID ORD ERABLES [facility] [address] [place] [address], [place] [phone] * PROTEIN CSF (09/19/2023 3:13 PM CDT) Protein CSF 42 15 - 45 mg/dL 09/19/2023 3:52 PM CDT [facility] Cerebral spinal fluid CEREBROSPINAL FLUID SPECIMEN / Unknown Collection / Unknown 09/19/2023 3:13 PM CDT 09/19/2023 3:13 PM CDT Shree Espinoza MD LAB - BODY FLUID ORD ERABLES [facility] [address] [place] [address], [facility] [phone] * GLUCOSE CSF (09/19/2023 3:13 PM CDT) Glucose CSF 68 40 - 70 mg/dL 09/19/2023 3:52 PM CDT [facility] Cerebral spinal fluid CEREBROSPINAL FLUID SPECIMEN / Unknown Collection / Unknown 09/19/2023 3:13 PM CDT 09/19/2023 3:13 PM CDT Shree Espinoza MD LAB - BODY FLUID ORD ERABLES Performing Organization Address City/[facility]/ZIP Co de Phone Number [address] [address], [facility] [phone] * BORRELIA BURGDORFERI AB IGG/IGM CSF (09/19/2023 2:56 PM CDT) Borrelia burgdorferi Antibody IgG Index CSF < 0.08 <0.14 Index 09/28/2023 5:08 PM CDT [facility] ([facility]) Comment: Result Interpretation: Negative: < 0.14 Positive: > or = 0.14 Borrelia burgdorferi Antibody IgM Index CSF < 0.06 <0.07 Index 09/28/2023 5:08 PM CDT [facility] ([facility]) Comment: Result Interpretation: Negative: < 0.07 Positive: > or = 0.07 The performance characteristics of the listed assay was validated by [facility]. The [place] FDA has not approved or cleared this test. The results of this assay can be used for clinical diagnosis without FDA approval. [facility] is a CLIA certified, CAP accredited laboratory for performing high complexity assays such as this one. Testing Performed at: [facility] [address] [place] [address] Cerebral spinal fluid CEREBROSPINAL FLUID SPECIMEN / Unknown Collection / Unknown 09/19/2023 2:56 PM CDT 09/19/2023 3:14 PM CDT Narrative [facility] ([facility]) - 09/28/2023 5:08 PM CDT Performed at: - [email or web address] [address] [place] [address] [id number] Wet Machine Operator: Claire Zazueta PhD, Phone: [phone] Shree Espinoza MD LAB - BODY FLUID ORD ERABLES [facility] ([facility]) [address] [place] [address] * FL LUMBAR PUNCTURE (09/19/2023 2:25 PM CDT) Anatomical Region Laterality Modality Spine Radiographic Arcelia ging 09/19/2023 3:16 PM CDT Impressions 09/20/2023 8:55 AM CDT IMPRESSION: 1.Successful lumbar puncture under fluoroscopic guidance at L3-L4. > Dictated by Matheus Collins MD, MD (radiology therapist). I, Emerald Bess MD have personally reviewed and interpreted this examination/study. > Interpreting Provider: Emerald Bess MD on 09/20/2023 8:55 AM Narrative 09/20/2023 8:55 AM CDT PROCEDURE: FL LUMBAR PUNCTURE, DATE/TIME OF EXAM: 09/19/2023 3:02 PM, LOCATION [facility] INDICATION: R41.82: Altered mental status, unspecified [...] DATE/TIME OF EXAM: 09/19/2023 3:02 PM, LOCATION [facility] INDICATION: R41.82: Altered mental status, unspecified [...] > Dictated by Matheus Collins MD, MD (radiology therapist). I, Emerald Bess MD have personally reviewed and interpreted this examination/study. > Interpreting Provider: Emerald Bess MD on 09/20/2023 8:55 AM Shree Espinoza MD FLUOROSCOPY ORDERABL ES * (ABNORMAL) OSMOLALITY BLOOD (09/18/2023 4:27 AM CDT) Osmolality 302(H) 275 - 295 mOsm/kg 09/18/2023 7:40 AM CDT [facility] Blood BLOOD SPECIMEN / Unknown Lab Venipuncture / Unknown 09/18/2023 4:27 AM CDT 09/18/2023 5:34 AM CDT Shree Espinoza MD LAB - CHEMISTRY HECTOR WELCH [facility] Organization Address City/State/[facility] Co de Phone Number [facility]ORY [address] [address], [facility] [phone] * CT HEAD WO CONTRAST (09/17/2023 4:22 PM CDT) Anatomical Region Laterality Modality Head Computed Tomogra phy 09/17/2023 4:35 PM CDT Impressions 09/17/2023 4:51 PM CDT IMPRESSION: No acute intracranial abnormality. > Interpreting Provider: Chris Villa MD, PhD on 09/17/2023 4:51 PM Narrative 09/17/2023 4:51 PM CDT EXAM: CT HEAD WO CONTRAST, DATE/TIME OF EXAM: 09/17/2023 4:23 PM, LOCATION: [facility] HISTORY: R41.82: Altered mental status, unspecified [...] DATE/TIME OF EXAM: 09/17/2023 4:23 PM, LOCATION: [facility] HISTORY: R41.82: Altered mental status, unspecified [...] 4.0 - 10.7 x10E9/L 09/17/2023 7:54 AM [facility] RBC Count 4.20 3.90 - 5.20 x10E12/L 09/17/2023 7:54 AM [facility] Hemoglobin 13.7 11.9 - 15.8 g/dL 09/17/2023 7:54 AM [facility] Hematocrit 39.6 34.8 - 46.1 % 09/17/2023 7:54 AM [facility] MCV 94.3 80.0 - 98.0 fL 09/17/2023 7:54 AM [facility] MCH 32.6 26.7 - 33.6 pg 09/17/2023 7:54 AM [facility] MCHC 34.6 31.7 - 36.3 g/dL 09/17/2023 7:54 AM [facility] RDW-CV 13.8 11.3 - 14.8 % 09/17/2023 7:54 AM [facility] Platelet Count 231 150 - 420 x10E9/L 09/17/2023 7:54 AM [facility] MPV 9.3 7.8 - 11.4 fL 09/17/2023 7:54 AM [facility] Neutrophil % 81.7(H) 41.0 - 74.0 % 09/17/2023 7:54 AM [facility] Lymphocyte % 9.8(L) 17.0 - 47.0 % 09/17/2023 7:54 AM [facility] Monocyte % 7.8 3.0 - 11.0 % 09/17/2023 7:54 AM [facility] Eosinophil % 0.0 0.0 - 7.0 % 09/17/2023 7:54 AM [facility] Basophil % 0.2 0.0 - 1.6 % 09/17/2023 7:54 AM [facility] Immature Granulocytes % 0.5 0.0 - 1.0 % 09/17/2023 7:54 AM [facility] Neutrophil Absolute 7.59(H) 1.60 - 7.50 x10E9/L 09/17/2023 7:54 AM [facility] Lymphocyte Absolute 0.91(L) 1.00 - 4.40 x10E9/L 09/17/2023 7:54 AM [facility] Monocyte Absolute 0.72 0.15 - 1.00 x10E9/L 09/17/2023 7:54 AM [facility] Eosinophil Absolute 0.00 0.00 - 0.60 x10E9/L 09/17/2023 7:54 AM [facility] Basophil Absolute 0.02 0.00 - 0.13 x10E9/L 09/17/2023 7:54 AM [facility] Blood BLOOD SPECIMEN / Unknown Lab Venipuncture / Unknown 09/17/2023 7:21 AM CDT 09/17/2023 7:36 AM CDT Shree Espinoza MD LAB - HEMATOLOGY ORD ERABLES [facility] [address] [place] [address], [facility] [phone] * CREATINE URINE (09/17/2023 2:41 AM CDT) Creatine 24 Hour Urine Not Applicable mg/24h 09/21/2023 9:24 AM T [facility] ([facility]) Comment: INTERPRETIVE INFORMATION: Creatine Urine For random or timed specimens other than 24 hrs, the result represents the total milligrams of creatine excreted during the collection period. Reference ranges for creatine have been established for random urine collections, in mmol/mol creatinine. Access complete set of age- and/or gender-specific reference intervals for this test in the [facility] Test Directory ([employer]). Performed By: [facility] [facility] [address] [place] [address] Lan Specialist: Jacinto Enriquez MD, PhD CLIA Number: [id number] Collection Time Hours Random hr 09/21/2023 9:24 AM CDT [facility] ([facility]) Volume 24 Hour Urine Random mL 09/21/2023 9:24 AM CDT [facility]) Creatinine Urine 6320.5 umol/L 09/21/19 9:24 AM CDT [facility]) Creatine Urine 27 10 - 370 mmol/mol MEDICAL RESEARCH TECH 09/21/2023 9:24 AM CDT [facility]) Comment: This test was developed and its performance characteristics determined by [facility]. It has not been cleared or approved by the US Food and Drug Administration. This test was performed in a CLIA certified laboratory and is intended for clinical purposes. Urine URINE SPECIMEN OBTAINED BY CLEAN CATCH PROCEDURE / Unknown Collection / Unknown 09/17/2023 2:41 AM CDT 09/17/2023 2:50 AM CDT Shree Espinoza MD LAB - URINE CHEMISTR Y ORDERABLES [facility]) [address] [place] [address] * LYTES (NA K CL) URINE RANDOM PANEL (09/17/2023 2:41 AM CDT) Only the most recent of2 resultswithin the time period is included. Sodium Urine 61 Not Established mmol/L 09/17/2023 3:13 AM CDT [facility] Potassium Urine 45.9 Not Established mmol/L 09/17/2023 3:13 AM CDT [facility] Chloride Random Urine 87 Not Established mmol/L 09/17/2023 3:13 AM CDT [facility] Urine URINE SPECIMEN OBTAINED BY CLEAN CATCH PROCEDURE / Unknown Collection / Unknown 09/17/2023 2:41 AM CDT 09/17/2023 2:50 AM CDT Shree Espinoza MD LAB - URINE CHEMISTR Y ORDERABLES [facility] [address] [place] [address], [facility] [phone] * XR CHEST 1VW PORTABLE (09/16/2023 2:06 [...] Not Established mg/dL 09/16/2023 2:30 PM CDT [facility] Urine URINE SPECIMEN OBTAINED BY CLEAN CATCH PROCEDURE / Unknown Collection / Unknown 09/16/2023 1:54 PM CDT 09/16/2023 2:01 PM CDT Shree Espinoza MD LAB - URINE CHEMISTR Y ORDERABLES [address] [address], [facility] [phone] * CARDIAC EKG ORDER (09/16/2023 9:22 AM CDT) Narrative 09/16/2023 9:22 AM CDT Ordered by an unspecified provider. Scanned Document CARDIAC SERVICES ORD ERABLES * (ABNORMAL) RENAL FUNCTION PANEL (09/16/2023 6:04 AM CDT) BUN 22 7 - 26 mg/dL 09/16/2023 7:01 AM [facility] Creatinine 1.67(H) 0.56 - 0.96 mg/dL 09/16/2023 7:01 AM [facility] Sodium 145 136 - 145 mmol/L 09/16/2023 7:01 AM [facility] Potassium 3.3(L) 3.5 - 4.5 mmol/L 09/16/2023 7:01 AM [facility] Chloride 106 98 - 107 mmol/L 09/16/2023 7:01 AM [facility] CO2 25 22 - 29 mmol/L 09/16/2023 7:01 AM [facility] Glucose 127(H) 70 - 115 mg/dL 09/16/2023 7:01 AM [facility] Albumin 3.1(L) 3.4 - 5.0 g/dL 09/16/2023 7:01 AM [facility] Calcium 9.8 8.4 - 10.2 mg/dL 09/16/2023 7:01 AM [facility] Phosphorus 4.0 2.9 - 5.1 mg/dL 09/16/2023 7:01 AM [facility] Anion Gap 14 6 - 16 09/16/2023 7:01 AM [facility] BUN/Creatinine Ratio 13 7 - 23 09/16/2023 7:01 AM [facility] Osmolality Calculated 305(H) 275 - 295 mOsm/kg 09/16/2023 7:01 AM [facility] eGFR by CKD-EPI 32(L) >=90 mL/min/1.7 3 m2 09/16/2023 7:01 AM [facility] Blood BLOOD SPECIMEN / Unknown Lab Venipuncture / Unknown 09/16/2023 6:04 AM CDT 09/16/2023 6:25 AM CDT Maria Del Rosario Flores MD LAB - CHEMISTRY ORDE [facility] Organization Address City/State/ZIP Co de Phone Number [facility] [address] [place] [address], [facility] [phone] * EKG 12-LEAD (09/16/2023 2:53 AM CDT) Only the most recent of2 resultswithin the time period is included. Ventricular Rate 78 BPM [facility] MUSE QRS Duration ms 98 ms [facility] MUSE Q-T Interval ms 368 ms [facility] MUSE QTC Calculation (Bezet) 419 ms [facility] MUSE Calculated R [place] -30 degrees [facility] MUSE Calculated T [place] 66 degrees [facility] MUSE Interpretation EKG ATRIAL FIBRILLATION WITH PREMATURE VENTRICULAR OR ABERRANTLY CONDUCTED COMPLEXES LEFT AXIS DEVIATION NONSPECIFIC ST AND T WAVE ABNORMALITY ABNORMAL ECG WHEN COMPARED WITH ECG OF 09/15/23 WITH PREMATURE VENTRICULAR OR ABERRANTLY CONDUCTED COMPLEXES Now present Confirmed by JIMBO LOPES, PIO ([id number]) on 09/19/2023 10:52:24 PM [facility] MUSE 09/16/2023 2:53 AM CDT 09/19/2023 10:52 [...] contrast. > Dictated by Jagjit Ceballos DO (radiology therapist). IEmerald MD have personally reviewed and interpreted this examination/study. > Interpreting Provider: Emerald Bess MD on 09/16/2023 11:03 AM Narrative 09/16/2023 11:03 AM CDT PROCEDURE: MRI BRAIN WWO CONTRAST, DATE/TIME OF EXAM: 09/15/2023 6:38 PM, LOCATION [facility] INDICATION: R53.1: Weakness ADDITIONAL CLINICAL INFORMATION: [...] CONTRAST, DATE/TIME OF EXAM: 09/15/2023 6:38PM, LOCATION [facility] INDICATION: R53.1: Weakness ADDITIONAL CLINICAL INFORMATION: [...] contrast. > Dictated by Jagjit Ceballos DO (radiology therapist). IEmerald MD have personally reviewed and interpreted this examination/study. > Interpreting Provider: Emerald Bess MD on 09/16/2023 11:03 AM Dev Goodman MD MR ORDERABLES * URINE MICROSCOPIC ONLY REFLEX TO CULTURE (09/15/2023 6:04 PM CDT) Reflex Status Culture not indicated 09/15/2023 7:12 PM CDT [facility] RBC UA 0-2 None Seen, 0-2, 3-5 /HPF 09/15/2023 7:12 PM T [facility] WBC UA 0-5 None Seen, 0-5 /HPF 09/15/2023 7:12 PM [facility] Squamous Epithelial Cells UA None Seen None Seen, 0-2, 3-5 /HPF 09/15/2023 7:12 PM T [facility] Urine URINE SPECIMEN OBTAINED BY SINGLE CATHETERIZATION OF URINARY BLADDER / Unknown Collection / Unknown 09/15/2023 6:04 PM CDT 09/15/2023 6:08 PM CDT [facility] - 09/15/2023 7:12 PM CDT Dev Goodman MD LAB - URINALYSIS ORD ERABLES Performing Organization Address City/State/[facility] Co de Phone Number [address] [address], [facility] [phone] * (ABNORMAL) URINALYSIS REFLEX MICROSCOPIC REFLEX CULTURE (09/15/2023 6:04 PM CDT) Color UA Colorless(A ) Straw, Yellow 09/15/2023 6:29 PM T [facility] Clarity UA Clear Clear 09/15/2023 6:29 PM T [facility] Specific [place] UA 1.006 1.005 - 1.030 09/15/2023 6:29 PM [facility] pH UA 7.0 5.0 - 8.0 pH 09/15/2023 6:29 PM [facility] Protein UA Negative Negative 09/15/2023 6:29 PM [facility] Glucose UA Negative Negative 09/15/2023 6:29 PM [facility] Ketone UA Negative Negative 09/15/2023 6:29 PM T [facility] Bilirubin UA Negative Negative 09/15/2023 6:29 PM [facility] Blood UA 1+(A) Negative 09/15/2023 6:29 PM [facility] Nitrite UA Negative Negative 09/15/2023 6:29 PM [facility] Leukocyte Esterase Negative Negative 09/15/2023 6:29 PM [facility] Urobilinogen UA Negative Negative mg/dL 09/15/2023 6:29 PM [facility] Urine URINE SPECIMEN OBTAINED BY SINGLE CATHETERIZATION OF URINARY BLADDER / Unknown Collection / Unknown 09/15/2023 6:04 PM CDT 09/15/2023 6:08 PM CDT [facility] - 09/15/2023 6:29 PM CDT Dev Goodman MD LAB - URINALYSIS ORD ERABLES [facility] [address] [place] [id number], [facility] [phone] * (ABNORMAL) URINE DRUG SCREEN IMMUNOASSAY (09/15/2023 6:04 PM CDT) [facility] Amphetamines Screen Urine Negative Negative : < 1000 ng/mL 09/15/2023 6:40 PM [facility] Barbiturates Screen Urine Negative Negative : < 200 ng/mL 09/15/2023 6:40 PM [facility] Benzodiazepine Screen Urine Negative Negative : < 200 ng/mL 09/15/2023 6:40 PM [facility] Opiates Urine Positive(A) Negative : < 300 ng/mL 09/15/2023 6:40 PM [facility] Comment:Positive urine opiat e screening results should be confirmed by another generally accepted non-immunological method such as gas chromatography or mass spectrometry. Cocaine Metabolites Urine Negative Negative : < 300 ng/mL 09/15/2023 6:40 PM [facility] Phencyclidine Screen Urine Negative Negative : < 25 ng/ml 09/15/2023 6:40 PM [facility] Cannabinoids Screen Urine Positive(A) Negative : <50 ng/mL 09/15/2023 6:40 PM [facility] Comment:Positive urine canna binoids (THC) screening results should be confirmed by another generally accepted non-immunological method such as gas chromatography or mass spectrometry. Methadone Screen Urine Negative Negative : < 300 ng/mL 09/15/2023 6:40 PM CDT [facility] Fentanyl Screen Urine Negative Negative : <1.5 ng/mL 09/15/2023 6:40 PM CDT [facility] Urine URINE / Unknown Collection / Unknown 09/15/2023 6:04 PM CDT 09/15/2023 6:08 PM CDT Narrative [facility] - 09/15/2023 6:40 PM CDT The Urine Toxicology Screening Panel does not screen for Propoxyphene, Meprobamate, Carisoprodol, Trazodone, otbu-obs-fiuorhq medications and/or volatiles (Acetone, Isopropanol, Methanol or Ethylene Glycol). Ethanol, Salicylate, Acetaminophen, Tricyclic Antidepressants and several therapeutic drugs may be individually assayed in serum or plasma specimen. Toxicology testing by the [facility] is an aid to medical diagnosis and treatment of patients. No documented chain of custody was maintained. Results are intended to be used for clinical purposes only. Dev Goodman MD LAB - URINE CHEMISTR Y ORDERABLES Performing Organization Address City/[facility]/ZIP Co de Phone Number [address] [address], [facility] [phone] * TSH REFLEX FREE T4 (09/15/2023 2:18 PM CDT) TSH 2.375 0.350 - 4.940 uIU/mL 09/15/2023 4:45 PM CDT [facility] Blood BLOOD SPECIMEN / Unknown Venipuncture / Unknown 09/15/2023 2:18 PM CDT 09/15/2023 2:25 PM CDT Maria Del Rosario Flores MD LAB - CHEMISTRY HECTOR WELCH [address] [address], [facility] [phone] * CK BLOOD (09/15/2023 2:18 PM CDT) CK Total 56 30 - 200 U/L 09/15/2023 2:38 PM CDT [facility] Blood BLOOD SPECIMEN / Unknown Venipuncture / Unknown 09/15/2023 2:18 PM CDT 09/15/2023 2:25 PM CDT Dev Goodman MD LAB - CHEMISTRY ORDE RABERNA Performing Organization Address City/[facility]/ZIP Co de Phone Number [facility] [address] [place] [address], [facility] [phone] * BLOOD TYPE VERIFICATION (09/15/2023 2:02 PM CDT) ABO Rh O POS 09/15/2023 2:4 1 PM CDT [facility] BLOOD BANK LAB Blood Bank BLOOD SPECIMEN / Unknown Venipuncture / Unknown 09/15/2023 2:02 PM CDT 09/15/2023 2:07 PM CDT Dev Goodman MD LAB - BLOOD BANK ORD ERABLES Performing Organization Address City/[facility]/ZIP Co de Phone Number [facility] BLOOD BANK LAB [address] [place] [address], [facility] [phone] * (ABNORMAL) TRICYCLICS SCREEN BLOOD (09/15/2023 2:02 PM CDT) Tricyclic Antidepressants <40(L) 80 - 200 ng/mL 09/15/2023 2:27 PM CDT [facility] Blood BLOOD SPECIMEN / Unknown Venipuncture / Unknown 09/15/2023 2:02 PM CDT 09/15/2023 2:05 PM CDT Narrative [facility] - 09/15/2023 2:27 PM CDT Many [...] - CHEMISTRY HECTOR WELCH Performing Organization Address [facility]/ZIP Co de Phone Number [facility] [address] [place] [address], [facility] [phone] * ALCOHOL ETHYL BLOOD (09/15/2023 2:02 PM CDT) Ethanol (mg/dL) <10 <=10 mg/dL 8:47 AM CDT [facility] Ethanol Calculated (g/dL) <0.010 <0.010 g/dL 09/16/2023 8:47 AM CDT [facility] Blood BLOOD SPECIMEN / Unknown Venipuncture / Unknown 09/15/2023 2:02 PM CDT 09/16/2023 8:35 AM CDT Narrative [facility] - 09/16/2023 8:47 AM CDT Ethanol Interp <10: None Detected. Depression of INSPECTOR PAWNSHOP DETAIL: >100 mg/dl Potentially Critical: >250 mg/dl Potentially [...] Goodman MD LAB - CHEMISTRY HECTOR WELCH [facility] [address] [place] [address], [facility] [phone] * (ABNORMAL) SALICYLATE LEVEL BLOOD (09/15/2023 2:02 PM CDT) Salicylate <5(L) 15 - 30 mg/dL 09/15/2023 2:35 PM CDT [facility] Blood BLOOD SPECIMEN / Unknown Venipuncture / Unknown 09/15/2023 2:02 PM CDT 09/15/2023 2:09 PM CDT Narrative [facility] - 09/15/2023 2:35 PM CDT This test is not intended for use with low-dose aspirin therapy. Most patients on low-dose aspirin for cardiovascular prophylaxis will have serum concentrations near or below the lower limit of the analytical range. Dev Goodman MD LAB - CHEMISTRY HECTOR WELCH Performing Organization Address [facility]/ZIP Co de Phone Number [address] [address], [facility] [phone] * ACETAMINOPHEN LEVEL (09/15/2023 2:02 PM CDT) Acetaminophen <3.0 <3.0 ug/mL 09/15/2023 2:35 PM CDT [facility] Blood BLOOD SPECIMEN / Unknown Venipuncture / Unknown 09/15/2023 2:02 PM CDT 09/15/2023 2:09 PM CDT Narrative [facility] - 09/15/2023 2:35 PM CDT Acetaminophen [...] may alter the peak level. Contact the [facility] at or reserved for healthcare professionals to assist you in evaluating potentially toxic acetaminophen levels. Dev Goodman MD LAB - CHEMISTRY HECTOR WELCH Performing Organization Address [facility]/ZIP Co de Phone Number [address] [address], [facility] [phone] * CT ANGIO BRAIN NECK STROKE (09/15/2023 [...] report is dictated by Ralf Mc DO, (radiology therapist) INoemí MD have personally reviewed and interpreted this examination/study. > Interpreting Provider: Noemí Gaming MD on 09/15/2023 4:31 PM Narrative 09/15/2023 4:31 PM CDT PROCEDURE: CT ANGIO BRAIN NECK STROKE, DATE/TIME OF EXAM: 09/15/2023 1:39 PM, LOCATION [facility] INDICATION: Code Stroke ADDITIONAL CLINICAL INFORMATION: [...] STROKE, DATE/TIME OF EXAM: :39 PM, LOCATION [facility] INDICATION: Code Stroke ADDITIONAL CLINICAL INFORMATION: [...] report is dictated by Ralf Mc DO, (radiology therapist) INoemí MD have personally reviewed and interpretedthis examination/study. > Interpreting Provider: Noemí Gaming MD on 09/15/2023 4:31 [address] MD [address] ORDERABLES * (ABNORMAL) PT-INR [facility] (09/15/2023 1:11 PM CDT) PT 15.5(H) 12.1 - 14.8 Seconds 09/15/2023 1:30 PM CDT [facility] INR 1.3 See Comment 09/15/2023 1:30 PM CDT [facility] Comment:The suggested therap eutic range for standard coumadin (warfarin) therapy is an INR of 2.0-3.0. For high-risk patients (Mechanical Mitral Valve Prosthesis, etc.), the suggested prophylactic therapeutic range is an INR of 2.5-3.5. Blood BLOOD SPECIMEN / Unknown Venipuncture / Unknown 09/15/2023 1:11 PM CDT 09/15/2023 1:14 PM CDT Dev Goodman MD LAB - COAGULATION OR DERABLES Performing Organization Address City/[facility]/ZIP Co de Phone Number [facility] [address] [place] [address], [facility] [phone] * TYPE + SCREEN PANEL (09/15/2023 1:11 PM CDT) Pathologist [facility] Antibody Screen NEG 1:59 PM CDT [facility] BLOOD BANK LAB ABO Rh O POS 09/15/2023 1:59 PM CDT [facility] BLOOD BANK LAB Blood Bank BLOOD SPECIMEN / Unknown Venipuncture / Unknown 09/15/2023 1:11 PM CDT 09/15/2023 1:16 PM CDT Dev Goodman MD LAB - BLOOD BANK ORD ERABLES Performing Organization Address [facility]/ZIP Co de Phone Number [facility] BLOOD BANK LAB [address] [place] [address], [facility] [phone] * (ABNORMAL) COMPREHENSIVE METABOLIC PANEL (09/15/2023 1:11 PM CDT) BUN 26 7 - 26 mg/dL 09/15/2023 1:47 PM CDT [facility] Creatinine 2.14(H) 0.56 - 0.96 mg/dL 09/15/2023 1:47 PM CDT [facility] Sodium 139 136 - 145 mmol/L 09/15/2023 1:47 PM CDT [facility] Potassium 3.9 3.5 - 4.5 mmol/L 09/15/2023 1:47 PM CDT [facility] Comment:Hemolysis detected i n this specimen. Hemolysis may cause false elevations in potassium leading to pseudohyperkalemia or masked hypokalemia. Recommend repeat testing if clinically indicated. Chloride 104 98 - 107 mmol/L 09/15/2023 1:47 PM [facility] CO2 25 22 - 29 mmol/L 09/15/2023 1:47 PM [facility] Glucose 104 70 - 115 mg/dL 09/15/2023 1:47 PM [facility] Calcium 9.3 8.4 - 10.2 mg/dL 09/15/2023 1:47 PM [facility] Protein Total 6.7 6.0 - 8.3 g/dL 09/15/2023 1:47 PM [facility] Comment:Hemolysis detected i n this specimen. Hemolysis is known to cause elevations in this analyte. Caution should be exercised in the interpretation of this result. Recommend repeat testing if clinically indicated. Albumin 3.2(L) 3.4 - 5.0 g/dL 09/15/2023 1:47 PM [facility] Bilirubin Total 0.4 0.2 - 1.2 mg/dL 09/15/2023 1:47 PM [facility] Alkaline Phosphatase 36(L) 40 - 150 U/L 09/15/2023 1:47 PM [facility] ALT 27 5 - 55 U/L 09/15/2023 1:47 PM [facility] AST 42(H) 5 - 34 U/L 09/15/2023 1:47 PM [facility] Comment:Hemolysis detected i n this specimen. Hemolysis is known to cause elevations in this analyte. Caution should be exercised in the interpretation of this result. Recommend repeat testing if clinically indicated. Anion Gap 10 6 - 16 09/15/2023 1:47 PM [facility] BUN/Creatinine Ratio 12 7 - 23 07/06/2023 1:47 PM [facility] Osmolality Calculated 293 275 - 295 mOsm/kg 09/15/2023 1:47 PM [facility] Albumin/Globulin Ratio 0.9(L) 1.1 - 2.3 09/15/2023 1:47 PM [facility] eGFR by CKD-EPI 24(L) >=90 mL/min/1 .73 m2 09/15/2023 1:47 PM CDT [facility] LABORATORY [facility] Blood BLOOD SPECIMEN / Unknown Venipuncture / Unknown 09/15/2023 1:11 PM CDT 09/15/2023 1:14 PM CDT Dev Goodman MD LAB - CHEMISTRY HECTOR WELCH [facility] Organization Address City/State/[facility] Co de Phone Number [facility] [address] [place] [address], [facility] [phone] * CT BRAIN - Stroke (09/15/2023 1:08 [...] DATE/TIME OF EXAM: 09/15/2023 1:08 PM, LOCATION [facility] INDICATION: Code Stroke EXAMINATION: Computed tomography [...] STROKE, DATE/TIME OF EXAM: 09/15/2023 1:08 PM,LOCATION [facility] INDICATION: Code Stroke EXAMINATION: Computed tomography [...] 0.9 - 1.2 09/15/2023 1:10 PM CDT [facility] Device [id number] 09/15/2023 1:10 PM CDT [facility] Professor Of Biblical Studies ID [id number] 09/15/2023 1:10 PM CDT [facility] Blood BLOOD SPECIMEN / Unknown 09/15/2023 1:08 PM CDT 09/15/2023 1:10 PM CDT Provider Unknown LAB - POINT OF CARE ORDERABLES [facility] [address] [place] [address], [facility] [phone] * (ABNORMAL) CREATININE - POCT INTERFACED (09/15/2023 1:08 PM CDT) Pathologist [facility] Creatinine POCT 1.30 0.30 - 1.30 mg/dL 09/15/2023 1:10 PM CDT [facility] eGFR 43(L) >=90 mL/min/1.7 3 m2 09/15/2023 1:10 PM CDT [facility] Blood BLOOD SPECIMEN / Unknown 09/15/2023 1:08 PM CDT 09/15/2023 1:10 PM CDT Provider Unknown LAB - POINT OF CARE ORDERABLES [facility] [address] [place] [address], [facility] [phone] * CARDIAC RHYTHM STRIP ORDER (02/09/2022 7:03 PM BINDERY ASSISTANT) Only the most recent of2 resultswithin the time period is included. Narrative 02/09/2022 7:03 PM BINDERY ASSISTANT Ordered by an unspecified provider. Scanned Document CARDIAC SERVICES ORD ERABLES * IMAGING RADIOLOGY XRAY RESULTS ORDER (02/09/2022 3:09 AM BINDERY ASSISTANT) Anatomical Region Laterality Modality Other Narrative 02/09/2022 3:09 AM BINDERY ASSISTANT Ordered by an unspecified provider. Scanned Document IMAGING * (ABNORMAL) HGB HCT PANEL (02/06/2022 4:39 AM BINDERY ASSISTANT) Pathologist [facility] Hemoglobin 12.8 12.0 - 15.6 gm/dL 02/06/2022 5:18 AM BINDERY ASSISTANT [facility] Hematocrit 35.6(L) 35.9 - 45.5 % 02/06/2022 5:18 AM BINDERY ASSISTANT [facility] Blood BLOOD SPECIMEN / Unknown Lab Venipuncture / Unknown 02/06/2022 4:39 AM BINDERY ASSISTANT 02/06/2022 5:14 AM BINDERY ASSISTANT Jason Vargas DO LAB - HEMATOLOGY ORDERABLES [facility] [address] [place], [place] [address] [phone] * XR KNEE RIGHT 2VW OR LESS (02/05/2022 11:29 AM BINDERY ASSISTANT) Anatomical Region Laterality Modality Lower Extremity Radiographic Arcelia ging 02/05/2022 2:48 PM BINDERY ASSISTANT Impressions 02/05/2022 2:49 PM BINDERY ASSISTANT IMPRESSION: Total knee prosthesis. > Interpreting Provider: Kaleb Summers MD on 02/05/2022 2:49 PM Narrative 02/05/2022 2:49 PM BINDERY ASSISTANT PROCEDURE: XR KNEE RIGHT 2VW OR LESS, DATE/TIME OF EXAM: 02/05/2022 2:45 PM, LOCATION [facility] INDICATION: M17.11: Unilateral primary osteoarthritis, right knee [...] LESS, DATE/TIME OF EXAM: :45 PM, LOCATION [facility] INDICATION: M17.11: Unilateral primary osteoarthritis, right knee [...] * Peripheral Nerve Block (02/05/2022 8:44 AM BINDERY ASSISTANT) Narrative Reece Vázquez MD - 02/05/2022 8:44 AM BINDERY ASSISTANT Reece Vázquez MD 02/05/2022 8:48 AM Peripheral [...] CONTRAST (01/08/2022 10:09 AM CDT) Narrative [facility] - 01/11/2022 4:44 PM CDT See Notes. Jason Vargas DO CT ORDERABLES [facility] [address] [place] [address] * CULTURE YEAST (06/02/2021 11:25 AM CDT) Culture Yeast with ID [facility] Comment: CULTURE, YEAST, W/IDENTIFICATION Micro Number: [id number] Test Status: Final Specimen Source: Vulva Specimen Quality: Adequate Result: No fungal growth at 2 Weeks Test Performed at: [facility] [id number] [place] [address] VICTOR HUGO ANTON MD Microbiology ENTIRE VULVA / Unknown 06/02/2021 11:25 AM CDT 06/03/2021 2:30 AM CDT Abiola Cordova MARKETING REPRESENTATIVE-FISH HATCHERY WORKER LAB - MICRO BIOLOGY ORDERABLES [address] [place] [address] * DERMATOPATH TECHNICAL REPORT (04/25/2018 12:00 AM [facility]) Case Report Dermatopathology Report Case: [id number] Authorizing Provider: Abiola Stoddard MD Collected: 04/25/2018 12:00 AM Pathologist: Freida Diehl MD Received: 04/26/2018 10:46 AM Specimen: Skin, right post thigh 12:27 PM [facility] DERMATOPATHOLOGY [facility]ORATORY Addendum 1 At the request of the diagnosing physician, the technical component for Ashby-1/Melan A was performed by [facility] Dermatopathology Laboratory. 12:27 PM [facility] DERMATOPATHOLOGY [facility]ORATORY Addendum electronically signed by Freida Diehl MD on 04/28/2018 at 12:27 PM Clinical History Nevus, irr color, irr border. 12:27 PM [facility] DERMATOPATHOLOGY [facility]ORATORY Gross Description Specimen A: Received is one formalin filled container labeled with the patient's name and designated right post thigh. The specimen consists of a shave measuring [id number]. Jar 0. [facility] Dermatopathology [facility] performed the technical component only. 12:27 PM [facility] DERMATOPATHOLOGY [facility]ORATORY Embedded Images 12:27 PM [facility] DERMATOPATHOLOGY [facility]ORATORY DISCLAIMER An external and internal positive and negative controls are appropriate for the histochemical, immunohistochemical and immunofluorescence stain(s) in this case (if any), except where stated explicitly. The performance characteristics of the stain(s) cited in this report were developed and its performance characteristic determined by the Dermatopathology Laboratory at [facility], directed by Dr. Nica Diaz. These tests need not be, and therefore are not, approved by the [place] Food and Drug Administration. The tests are used for clinical purposes. 9 12:27 PM BINDERY ASSISTANT DERMATOPATHOLOGY LABORATORY Pathology/Cytolog y TISSUE SPECIMEN FROM SKIN / Unknown 04/25/2018 04/26/2018 10:46 AM BINDERY ASSISTANT Abiola Stoddard MD LAB - PATHOLOGY/CYT OLOGY ORDERABLES Performing Organization Address [facility] Co de Phone Number DERMATOPATHOLOGY LABORATORY [facility] Department of Dermatology [address] [place] [address], 5th Floor Lab [address] [phone] * PATHOLOGY/GENETICS HISTORICAL-ONBASE (07/21/2016) 07/21/2016 Historical Provider LAB - CHEMISTRY O RDERAQI Performing Organization Address [facility] Co de Phone Number [address] * LAB HISTORICAL RESULTS-ONBASE (07/21/2016) Only the most recent of2 resultswithin the time period is included. 07/21/2016 Historical Provider LAB - CHEMISTRY O RDERAQI Performing Organization Address [facility] Co de Phone Number [place] [phone] * PH FLUID - POCT (AMB) [facility] (06/10/2015) pH Vaginal 5.0 [facility] Vaginal swab (specimen) 06/10/2015 Cherelle Navarrete MD LAB - POINT OF CAR E ORDERABLES Performing Organization Address [facility]/ZIP Co de Phone Number [facility] * WET PREP - POINT OF CARE (AMB) [facility] (06/10/2015) pH Wet Prep 5.0 [facility] Yeast Wet Prep ? buds [facility] Trichomonas Wet Prep neg [facility] Bacteria Wet Prep neg [facility] Whiff Test neg [facility] 06/10/2015 Cherelle Navarrete MD LAB - POINT OF CAR E ORDERABLES [facility] * FUNGUS ROMAN - POINT OF CARE (AMB) [facility] (06/10/2015) ROMAN Prep neg [facility] Fluid specimen (specimen) 06/10/2015 Cherelle Navarrete MD LAB - POINT OF CAR E ORDERABLES Performing Organization Address City/[facility]/ZIP Co de Phone Number [facility] * CULTURE YEAST WITH DIRECT FLUORESCENT ROMAN (06/10/2015) Smear SEE NOTE [facility] ([facility]) Comment: CULTURE, YEAST, W/DIRECT FLUORESCENT ROMAN MICRO NUMBER: [id number] TEST STATUS: FINAL SPECIMEN SOURCE: VAGINA SPECIMEN QUALITY: ADEQUATE SMEAR: No fungal elements seen. RESULT: No fungal growth at 2 Weeks REPORT COMMENT: PLEASE CHECK FOR ALL NASREEN SPECIES INCLUDING NASREEN GLABRATA PLEASE CHECK FOR SENSITIVITIES EVEN FOR NASREEN ALB Test Performed at: [facility] [address] VICTOR HUGO ANTON MD Vaginal swab (specimen) 06/10/2015 06/11/2015 12:17 AM CDT Narrative [facility] ([facility]) - 06/27/2015 7:00 AM CDT Please check for all nasreen species including nasreen glabrata Please check for sensitivities even for nasreen albicans result Please check for sensitivities for these drugs: 1. Anidulafungin 2. Micafungin 3. Caspofungin 4. 5-Flucytosine 5. Posaconazole 6. Voriconazole 7. Itraconazole 8. Fluconazole 9. Amphotericin B Specimen Type->Vaginal swab Cherelle Navarrete MD LAB - MICROBIOLOGY ORDERABLES [facility] ([facility]) * CYTOLOGY SMEAR PAP THIN PREP (06/25/1998 1:56 PM CDT) Only the most recent of3 resultswithin the time period is included. Result CASE NUMBER [id number] Comment: ORDERING PHYSICIAN WILLIAM ARDON SPECIMEN TYPE PAP Smear Date 06/25/1998 Procedure Cervical/Endocervical, 1 Vial for Thin Prep Received Specimen Adequacy Satisfactory for Evaluation Categorization Benign Cellular Changes Comment Inflammation Present. Snomed. 07/02/1998 1533 <1> Virtual Reality Specialist Silvia Godwin (ASC) Pathologist. Todd Martinez M.D. [...] LAB - PATHOLOGY/C YTOLOGY ORDERABLES Care Teams Sponge Maker Relationship Specialty Start Date End Date Zhanna Cordero MD [address] [place] [address] PCP - General 12/01/21 Jung Regalado MD [address] [place] [address] Family Medicine 03/16/10
--- OUTSIDE RECORDS SUMMARY | 2024-04-30 16:36 | XMS_ITS | Encounter Summary ---
Author Organization [facility] Address 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
--- OUTSIDE RECORDS SUMMARY | 2024-04-30 16:36 | XMS_ITS | Clinical Summary ---
Author Organization [facility] [place] Address [address] [place] [address] Care Team Providers Care Hydroelectric Machinery Mechanic Helper Name Role Phone Zhanna Cordero MD Primary Care Provider [phone] Allergies No known active allergies Medications acyclovir [...] (10/09/2019): Added automatically from request for surgery [id number] Chronic pain of left knee 11/17/2018 Chronic [...] 03/16/2010 Surgical History Surgery Date Site/Laterality Comments DC TOTAL ABDOMINAL HYSTERECT W/WO RMVL TUBE OVARY Hysterectomy - (Added by TW Conv) DC ARTHROPLASTY GLENOHUMERAL JOINT TOTAL SHOULDER Left Shoulder [...] on file Legal Sex Female 11:28 AM PEN AND PENCIL REPAIRER Gender Identity Female 06/30/2022 6:11 AM CDT [...] 36.6 C (97.8 F) 01/22/2020 11:10 AM PEN AND PENCIL REPAIRER Respiratory Rate 20 01/31/2020 10:46 AM PEN AND PENCIL REPAIRER Oxygen Saturation 97% 11/08/2023 10:01 AM CDT [...] history exists Medical Devices Implanted Type Area Machine Maintenance Supervisor Device Identifier Shelf Expiration Date Model / [...] age 40, based on guidelines of the [employer] [place] [employer] (ACR Practice Parameter for the Performance of Screening and Diagnostic Mammography) and [employer] [place] [employer]. For women [...] Most Recently Relevant to Health Maintenance Insurance [place] [id number] [place] [id number] MEDICARE SOLUTIONS [place] [id number] Advance Directives For more information, please contact: [phone] Documents on File Type Date Recorded Patient Brick Kiln Worker Expl anation ADVANCE DIRECTIVE 12/21/2018 12:00 AM [facility] FINANCIAL/MEDICAL Care Teams Hydroelectric Machinery Mechanic Helper Relationship Specialty Start Date End Date Zhanna Cordero MD PCP - General Family Medicine 05/22/20
--- OUTSIDE RECORDS SUMMARY | 2024-04-30 16:36 | XMS_ITS | Encounter Summary ---
Author Organization [facility] Address [address] [place] [address] Care Team Providers Care Contracts Intern Name Role Phone Jung Regalado MD Primary Care Provider + [phone] Encounter Details Date Type Department Care Team (Latest Contact Info) Description 10/20/2006 Outpatient Historical HIS [facility] MICHELINE Gonzalez, Maged Pizano MD NO ADDRESS ON FILE Other Screening Mammogram (Primary Dx) Social History Tobacco Use Types Packs/Day Years Used Date Smoking Tobacco: Never Assessed Comments Unknown Sex and Gender Information Value Date Recorded Sex Assigned at Not on file Legal Sex Female 4:20 AM TECHNOLOGY INTERNSHIP Gender Identity Not on file Sexual Orientation Not on file documented as of this encounter Plan of Treatment Not on file documented as of this encounter Visit Diagnoses Diagnosis Other screening mammogram- Primary documented in this encounter Care Teams Contracts Intern Relationship Specialty Start Date End Date Jung Regalado MD [address] [place] [address] PCP - General 01/20/09 documented as of this encounter
--- OUTSIDE RECORDS SUMMARY | 2024-04-30 16:36 | XMS_ITS | Encounter Summary ---
Author Organization [email or web address] Address [address] [place] [address] Care Team Providers Care Main Galley Scullion Name Role Phone Jung Regalado MD Primary Care Provider + [phone] Encounter Details Date Type Department Care Team (Latest Contact Info) Description 06/22/2000 Outpatient Historical HIS [facility] MICHELINE Gonzalez, Maged Pizano MD NO ADDRESS ON FILE Other screening mammogram (Primary Dx) Social History Tobacco Use Types Packs/Day Years Used Date Smoking Tobacco: Never Assessed Comments Unknown Sex and Gender Information Value Date Recorded Sex Assigned at Not on file Legal Sex Female 4:20 AM CUSTOMER SERVICE SUPERVISOR Gender Identity Not on file Sexual Orientation Not on file documented as of this encounter Plan of Treatment Not on file documented as of this encounter Visit Diagnoses Diagnosis Other screening mammogram- Primary documented in this encounter Care Teams Main Galley Scullion Relationship Specialty Start Date End Date Jung Regalado MD [address] [place] [address] PCP - General 01/20/09 documented as of this encounter
--- OUTSIDE RECORDS SUMMARY | 2024-04-30 16:36 | XMS_ITS | Encounter Summary ---
Author Organization [facility] Address [address] [place] [address] Care Team Providers Care Gun Fertilizer Name Role Phone Jung Regalado MD Primary Care Provider + [phone] Encounter Details Date Type Department Care Team (Latest Contact Info) Description 11/30/1999 Outpatient Historical HIS [facility] Jung Ramírez MD [address] [address] Other specified disorder of breast (Primary Dx) Social History Tobacco Use Types Packs/Day Years Used Date Smoking Tobacco: Never Assessed Comments Unknown Sex and Gender Information Value Date Recorded Sex Assigned at Not on file Legal Sex Female 4:20 AM REAL PROPERTY EVALUATOR Gender Identity Not on file Sexual Orientation Not on file documented as of this encounter Plan of Treatment Not on file documented as of this encounter Visit Diagnoses Diagnosis Other specified disorder of breast- Primary documented in this encounter Care Teams Gun Fertilizer Relationship Specialty Start Date End Date Jung Regalado MD [address] [place] [address] PCP - General 01/20/09 documented as of this encounter
--- OUTSIDE RECORDS SUMMARY | 2024-04-30 16:36 | XMS_ITS | Encounter Summary ---
Author Organization [facility] Address [address] [facility] [place] [address] Care Team Providers Care Profile Shaper Operator Name Role Phone Jung Regalado MD Unavailable [phone] Zhanna Cordero MD Primary Care Provider [phone] Encounter Details Date Type Department Care Team (Late st Contact Info) Description 02/23/2023 Lab Requisition [facility] Lab [address] [facility], [facility] [place] [address] Janis Santiago MD [address] [place] [address] Social History Tobacco Use Types [...] Diagnosis Comments DERMATOPATHOLOGY Routine 02/23/2023 1:27 PM DIRECTOR SPEECH documented in this encounter Results * DERMATOPATHOLOGY (02/23/2023 1:27 PM DIRECTOR SPEECH) Case Report Dermatopathology Report Case: [id number] Authorizing Provider: Janis Santiago MD Collected: 02/23/2023 01:27 PM Ordering Location: [facility] Received: 02/24/2023 07:38 AM Pathologist: Antonieta Zazueta MD Specimen: Skin, left middle finger 3 4:44 PM [facility] DERMATOPATHOLOGY [facility]ORATORY Final Diagnosis Specimen A. SKIN, left middle finger: SQUAMOUS CELL CARCINOMA, WELL DIFFERENTIATED (C44.629) (see microscopic description) 3 4:44 PM [facility] DERMATOPATHOLOGY [facility]ORATORY Clinical History R/O SCC 3 4:44 PM [facility] DERMATOPATHOLOGY [facility]ORATORY Gross Description Specimen A: Received is one formalin filled container labeled with the patient's name and designated left middle finger. The specimen consists of a shave biopsy measuring 4x3x1 mm. Jar 0. 3 4:44 PM [facility] DERMATOPATHOLOGY LABORATORY Microscopic Description Specimen A. SKIN, left middle finger: Arising in the epidermis and extending into the dermis there are irregularly shaped aggregates of keratinocytes showing evidence of premature cornification. A focus in which basaloid nests are observed is negative for BerEp4 and is lost on deeper level sections. 3 4:44 PM [facility] DERMATOPATHOLOGY LABORATORY Disclaimer An external and internal positive and negative controls are appropriate for the histochemical, immunohistochemical and immunofluorescence stain(s) in this case (if any), except where stated explicitly. The performance characteristics of the stain(s) cited in this report were developed and its performance characteristic determined by the Dermatopathology Laboratory at [facility], directed by Dr. Nica Diaz. These tests need not be, and therefore are not, approved by the [place] Food and Drug Administration. The tests are used for clinical purposes. Billing Codes Specimen Charges Stain Charges 48895 1 09885 1 3 4:44 PM [facility] DERMATOPATHOLOGY LABORATORY Embedded Images 3 4:44 PM DIRECTOR SPEECH DERMATOPATHOLOGY LABORATORY Pathology/Cytolo gy TISSUE SPECIMEN FROM SKIN / Unknown 02/23/2023 1:27 PM DIRECTOR SPEECH 02/24/2023 7:38 AM DIRECTOR SPEECH Janis Santiago MD LAB - PATHOLOGY/CYTO LOGY ORDERABLES DERMATOPATHOLOGY LABORATORY [facility] - Department of Dermatology [facility] [address] [place] [address], [address] [phone] documented in this encounter Visit Diagnoses Not on filedocumented in this encounter Care Teams Profile Shaper Operator Relationship Specialty Start Date End Date Zhanna Cordero MD [address] [place] [address] PCP - General 12/01/21 Jung Regalado MD [address] [place] [address] Family Medicine 03/16/10 documented as of this encounter
--- OUTSIDE RECORDS SUMMARY | 2024-04-30 16:36 | XMS_ITS | Continuity of Care Document ---
Author Organization [facility] Address [address] [place] [address] Phone Care Team Providers Care Disassembler Name Role Phone Ira Marcelo PA-C Unavailable [...] OFFICE/OUTPA TIENT VISIT EST [facility], [address], [place], [place], [facility], tel:[phone] [facility] Primary osteoarthritis of left kneeBody mass index [BMI] 33.0-33.9, adultStatus post total right knee replacement 4 Fozia Roth. [address], [place], [place], [facility], [place]. [phone] Referring Provider: Zhanna Coronel, [address] [place] [address], [address] . tel:[phone] OFFICE/OUTPA TIENT VISIT EST [facility], [address], [place], [facility], [place] tel:[phone] [facility] [place] Primary osteoarthritis of left kneeStatus post total right knee replacementBody mass index [BMI] 33.0-33.9, adultBody mass index [BMI] 31.0-31.9, adult 4 Fozia Roth. [address], [place], [facility], [place]. [phone] Referring Provider: Zhanna Coronel, [address] [place] [address], [address] . tel:[phone] OFFICE/OUTPA TIENT VISIT EST [facility], [address], [place], [address], [place] tel:[phone] [facility] [place] Body mass index [BMI] 33.0-33.9, adultStatus post total right knee replacementRight knee pain, unspecified chronicityPrimary osteoarthritis of left knee 3 Jossue Corral. [address], [place], [place], [address] . [phone] Referring Provider: Zhanna Coronel, [address] [place] [address], [address] . tel:[phone] OFFICE/OUTPA TIENT VISIT EST [facility], [address], [place], [address], [place] tel:[phone] [facility] [place] Status post total right knee replacementPrimar y osteoarthritis of left kneeBody mass index [BMI] 33.0-33.9, adult 3 Sam Mckeon anthony. [address], [place], [place], [address] . [phone] Referring Provider: Zhanna Coronel, [facility] [place], [address] . tel:[phone] [facility], [address], [place], [address], [place] tel:[phone] [facility] [place] Status post total right knee replacementRight knee pain, unspecified chronicity 3 Ter[address]arlene Crawford. [address], [place], [place], [address] , [place]. [phone] Referring Provider: Zhanna Coronel, [facility] [place], [address] . tel:[phone] [facility], [address], [place], [address], [place] tel:[phone] [facility] [place] Primary osteoarthritis of right kneeStatus post total right knee replacementBody mass index [BMI] 33.0-33.9, adult [address], [place], [place], [address] , [place]. tel:[phone] Referring Provider: Zhanan Coronel, [address] [place], [address] . tel:[phone] [facility], [address], [place], [address], [place] tel:[phone] [facility] Status post total right knee replacement 2 Vargas Mike er. [address], [place], [place], [address] . tel: [phone] [facility], [address], [place], [address], [place] tel:[phone] [facility] Primary osteoarthritis of right knee 2 Sam Johnsonoph er. [address], [place], [place], [address] . tel: [phone] [facility], [address], [place], [address], [place] tel:[phone] [facility] No Information 2 Sam Johnsonoph er. [address], [place], [place], [address] . tel: [phone] [facility], [address], [place], [address], [place] tel:[phone] [facility] Primary osteoarthritis of right kneeLong term current use of anticoagulantClas s 1 obesity with body mass index (BMI) of 33.0 to 33.9 in adult, unspecified obesity type, unspecified whether serious comorbidity presentHypertensi on, unspecified type 2 Sam Johnsonoph [place]. [address], [place], [place], [address] . tel: [phone] OFFICE/OUTPA TIENT VISIT NEW [facility], [address], [place], [address], [place] tel:[phone] [facility] Pain in left kneePrimary osteoarthritis of right kneePrimary osteoarthritis of left kneeRight knee pain, unspecified chronicityBody mass index [BMI] 33.0-33.9, adult 2 Vargas Mike er. [address], [place], [place], [address] . tel: [phone] Referring Provider: Zhanna Coronel, [address] [place], [address] . tel:[phone] [facility] [address], [address], [place] tel:[phone] [facility] Abnormal mammogram of left breast Nov- 9 Kurtlucille Mckeon er. [address], [place], [place], [address] . tel: [phone] [facility] [address], [place], [address], [place] tel:[phone] [facility] Abnormality of left breast on screening mammography Nov- 9 Delfino Mckeon er. [address], [place], [place], [address] . tel: [phone] [facility] [address], [address], [place] tel:[phone] [facility] Oth disrd of bone density and structure, other site - 8 Delfino Mckeon er. [address], [place], [place], [address] . tel: [phone] [facility] [address], [place], [address], [place] tel:[phone] [facility] Annual exam (chief complaint) Other specified disorders of bone density and structure, other siteEncounter for well woman exam with routine gynecological examAcquired absence of both cervix and uterusAcquired absence of ovaries, bilateral 8 [facility] Mike er. [address], [place], [place], [address] . tel: [phone] [facility] [address], [place], [address], [place] tel:[phone] [facility] Screening exam (chief complaint) Encounter for gynecological examination without abnormal findingAcquired absence of both cervix and uterus 0 5 [facility] Mike er. [address], [place], [place], [address] . tel: [phone] OFFICE/OUTPA TIENT VISIT EST [facility] [address], [place], [address], [place] tel:[phone] [facility] Vaginal burning and itching (chief complaint) Lichen sclerosus et atrophicus of the vulva 5 [facility] Mike er. [address], [place], [place], [address] . tel: [phone] OFFICE/OUTPA TIENT VISIT EST [facility] [address], [place], [address], [place] tel:[phone] [facility] Screening exam (chief complaint) annual exam (chief complaint) Routine BIOLOGY INSTRUCTOR examDepressionDiv erticulitis of colon (without mention of hemorrhage)Bari lashawn surgery statusBack pain 4 Lisa Lynne. [address], [place], [address]. tel: [phone] OFFICE/OUTPA TIENT VISIT EST [facility] [address], [place], [address], [place] tel:[phone] [facility] screening (chief complaint) Routine BIOLOGY INSTRUCTOR examMenopauseOste oarthritis, GeneralizedDepres sionMammogram, Screening 3 Lisa Lynne. [address], [place], [address]. tel: [phone] [facility] [address], [place], [address], [place] tel:[phone] [facility] BMD (chief complaint) Special screening for osteoporosisMenop ausal Symptoms 3 Lisa Lynne. [address], [place], [address]. tel: [phone] PREV VISIT EST AGE 40-64 [facility] [address], [place], [address], [place] tel:[phone] [facility] annual visit (chief complaint) Well Woman / Routine Car Starter/PapMenopausal SymptomsOsteoarth ritis, GeneralizedDivert iculitis of colon (without mention of hemorrhage)Depres esha 2 Lisa Lynne. [address], [place], [address]. tel: [phone] Family History Family Member Type Diagnosis Age [...] tion(s) AARP Medicare Complete HMO-POS E2 OT [id number] Social History Type Description Quantity Date [...] ordered Future Order: Lab Order Pap-Liqu id-based ([id number]), Ordered on: Ordered History Of Present Illness Encounter Date Complaint History Of Prese nt Illness Annual exam (comments) This paola ent has no lawnmower repair mechanic related complaints. She has had hysterectomy/BSO and [...] exam Screening exam This patient has no lawnmower repair mechanic related complaints. She has had hysterectomy with [...] pain and saw clinic for pain at [facility]. Screening exam Functional Status Date Functional Assessmen [...]
--- OUTSIDE RECORDS SUMMARY | 2024-04-30 16:36 | XMS_ITS | Referral Summary ---
Author Organization [facility] Address [address] [place] [address] Care Team Providers Care Belt Polisher Name Role Phone Zhanna Cordero MD Primary Care Provider [phone] Allergies No known active allergies Medications acyclovir [...] (10/09/2019): Added automatically from request for surgery [id number] Chronic pain of left knee 11/17/2018 Chronic [...] on file Legal Sex Female 11:28 AM CHEMISTS Gender Identity Female 06/30/2022 6:11 AM CDT [...] 36.6 C (97.8 F) 01/22/2020 11:10 AM CHEMISTS Respiratory Rate 20 01/31/2020 10:46 AM CHEMISTS Oxygen Saturation 97% 11/08/2023 10:01 AM CDT Inhaled Oxygen Concentration - - Weight 76.2 kg (168 lb) 11/08/2023 10:01 AM CDT Height 157.5 cm (5' 2 ) 11/08/2023 10:01 AM CDT Body Mass Index 30.73 11/08/2023 10:01 AM CDT Plan of Treatment Not on file Medical Devices Implanted Type Area Heavy Mobile Equipment Repairer Device Identifier Shelf Expiration Date Model / [...] age 40, based on guidelines of the [employer] (ACR Practice Parameter for the Performance of Screening and Diagnostic Mammography) and [employer]. 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
--- OUTSIDE RECORDS SUMMARY | 2024-04-30 16:36 | XMS_ITS | Clinical Summary ---
Author Organization [facility] Address [address] [place] [address] Care Team Providers Care Hook Tender Name Role Phone Jung Regalado MD Unavailable [phone] Zhanna Cordero MD Primary Care Provider [phone] Source Comments [facility],non-owned Affiliates and Associated Physician Practices is amultiple site organization consisting of ambulatory clinics and hospital sitesin [place], [place], [place] and [place]. This disclosure is being madepursuant to the Care Everywhere program and may not contain all information available regarding this patient. 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 Not hard at all 09/16/2023 [employer] [facility] of Occupat ional Health - Occupational Stress [...] place to sleep or slept in a detention (including now)? No 09/16/2023 Sex and Gender [...] this topic Medical Devices Implanted Type Area Toy Designer Device Identifier Shelf Expiration Date Model / Serial / Lot Cmpnt Ptlr S 31x9mm Tritanium Strl Lf Implanted:Qty: 1 on 02/05/2022 by Jason Vargas DO at [facility] Right: Knee [employer] 01/08/2027 5556-L-319 / / [id number] Bsplt Tib Trthlm 4 Kn Tritanium Implanted:Qty: 1 on 02/05/2022 by Jason Vargas DO at [facility] Right: Knee [employer] 2026 5536-B-400 / / [id number] Cmpnt Fem Kn Rt 3 Crcte Rtn Bead Trthln Implanted:Qty: 1 on 02/05/2022 by Jason Vargas DO at [facility] Right: Knee [employer] 11/21/2026 [id number] / / [id number] Ins Tib 4 9mm Kn X3 Crcte Sub Trthln Implanted:Qty: 1 on 02/05/2022 by Jason Vargas DO at [facility] Right: Knee [employer] 12/02/2026 5531-G-409 [id number] / / [id number] Procedures Procedure Name Priority Date/Time Associated Diagnosis Comments DERMATOPATHOLOGY Routine 02/22/2024 8:43 AM UNDER TRIMMER GLUCOSE - POINT OF CARE Routine 09/23/19 12:31 PM CDT from Last 3 Months or Most Recently Relevant to Health Maintenance Results * DERMATOPATHOLOGY (02/22/2024 8:43 AM UNDER TRIMMER) Case Report Dermatopathology Report Case: [id number] Authorizing Provider: Hilaria Kaur DO Collected: 02/22/2024 08:43 AM Ordering Location: [facility] - Received: 02/22/2024 03:46 PM DermPath Lab Pathologist: Antonieta Zazueta MD Specimen: Skin, right upper arm 12:06 PM [facility] DERMATOPATHOLOGY LABORATORY Final Diagnosis Specimen A. SKIN, right upper arm: DERMAL SCAR RESIDUAL SQUAMOUS CELL CARCINOMA NOT IDENTIFIED (L90.5) 12:06 PM [facility] DERMATOPATHOLOGY LABORATORY Clinical History Bx proven, R/O SCC 12:06 PM [facility] DERMATOPATHOLOGY LABORATORY Gross Description Specimen A: Received is one formalin filled container labeled with the patient's name and designated right upper arm. The specimen consists of a non-oriented ellipse of skin measuring 79y10p6 mm. The epidermal surface is unremarkable. The margin is inked green. The 12 o'clock and 6 o'clock tips are submitted in cassette 1. The remainder of the ellipse is serially sectioned and submitted in cassette 2. Jar 0. 12:06 PM [facility] DERMATOPATHOLOGY LABORATORY Microscopic Description Specimen A. SKIN, right upper arm: There are fibroblasts and collagen bundles oriented parallel to the skin surface. There are elongated blood vessels, some of which are oriented perpendicular to the skin surface. No residual squamous cell carcinoma is identified. 12:06 PM [facility] DERMATOPATHOLOGY LABORATORY Disclaimer An external and internal positive and negative controls are appropriate for the histochemical, immunohistochemical and immunofluorescence stain(s) in this case (if any), except where stated explicitly. The performance characteristics of the stain(s) cited in this report were developed and its performance characteristic determined by the Dermatopathology Laboratory at [facility], directed by Dr. Nica Diaz. These tests need not be, and therefore are not, approved by the [place] Food and Drug Administration. The tests are used for clinical purposes. Billing Codes Specimen Charges Stain Charges 31232 1 12:06 PM [facility] DERMATOPATHOLOGY LABORATORY Embedded Images 12:06 PM UNDER TRIMMER DERMATOPATHOLOGY LABORATORY Pathology/Cytolo gy TISSUE SPECIMEN FROM SKIN / Unknown 02/22/2024 8:43 AM UNDER TRIMMER 02/22/2024 3:46 PM UNDER TRIMMER Hilaria Kaur DO LAB - PATHOLOGY/C YTOLOGY ORDERABLES DERMATOPATHOLOGY LABORATORY [facility] - Department of Dermatology [facility] Medicine [address] [place] [address], [facility] [phone] * (ABNORMAL) GLUCOSE - POINT OF CARE (09/23/2023 12:31 PM CDT) Glucose WB/POC 225(H) 70 - 115 mg/dL 09/23/2023 12:36 PM CDT [facility] Specimen Type Cap Fingerstick 2023 12:36 PM CDT [facility] Blood BLOOD SPECIMEN / Unknown 09/23/2023 12:31 PM CDT 09/23/2023 12:36 PM CDT Val Gross MD LAB - POINT OF CARE ORDERABLES [facility] [address] [place] [address], [facility] [phone] from Last 3 Months or Most Recently Relevant to Health Maintenance Advance Directives Documents on File Type Date Recorded 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
--- OUTSIDE RECORDS SUMMARY | 2024-04-30 16:36 | XMS_ITS | Referral Summary ---
Author Organization [facility] Address [address] [place] [address] Care Team Providers Care Is Consultant Name Role Phone Jung Regalado MD Unavailable [phone] Zhanna Cordero MD Primary Care Provider [phone] Source Comments [facility],non-owned Affiliates and Associated Physician Practices is amultiple site organization consisting of ambulatory clinics and hospital sitesin [place], [place], [place] and [place]. This disclosure is being madepursuant to the Care Everywhere program and may not contain all information available regarding this patient. 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 Not hard at all 09/16/2023 [facility] of Occupat ional Health - Occupational Stress [...] place to sleep or slept in a [facility] (including now)? No 09/16/2023 Sex and Gender [...] on file Medical Devices Implanted Type Area [employer]ator Device Identifier Shelf Expiration Date Model / Serial / Lot Cmpnt Ptlr S 31x9mm Tritanium Strl Lf Implanted:Qty: 1 on 02/05/2022 by Jason Vargas, DO at [facility] Right: Knee [employer] 01/08/2027 [id number]-L-[id number] / / [id number] Bsplt Tib Trthlm 4 Kn Tritanium Implanted:Qty: 1 on 02/05/2022 by Jason Vargas, DO at [facility] Right: Knee [employer] 2026 [id number]-B-[id number] / / [id number] Cmpnt Fem Kn Rt 3 Crcte Rtn Bead Trthln Implanted:Qty: 1 on 02/05/2022 by Jason Vargas DO at [facility] Right: Knee [employer] 11/21/2026 [id number] / / [id number] Ins Tib 4 9mm Kn X3 Crcte Sub Trthln Implanted:Qty: 1 on 02/05/2022 by Jason Vargas DO at [facility] Right: Knee [employer] 12/02/2026 [id number]-G-409 -[id number] / / [id number] Procedures Procedure Name Priority Date/Time Associated Diagnosis Comments DERMATOPATHOLOGY Routine 02/22/2024 8:43 AM POLICY WRITER SALES GLUCOSE - POINT OF CARE Routine 09/23/19 12:31 PM CDT from Last 3 Months or Most Recently Relevant to Health Maintenance Results * DERMATOPATHOLOGY (02/22/2024 8:43 AM POLICY WRITER SALES) Case Report Dermatopathology Report Case: [id number] Authorizing Provider: Hilaria Kaur DO Collected: 02/22/2024 08:43 AM Ordering Location: [facility] - Received: 02/22/2024 03:46 PM DermPath Lab Pathologist: Antonieta Zazueta MD Specimen: Skin, right upper arm 12:06 PM POLIC[employer] WRITER SALES DERMATOPATHOLOGY LABORATORY Final Diagnosis Specimen A. SKIN, right upper arm: DERMAL SCAR RESIDUAL SQUAMOUS CELL CARCINOMA NOT IDENTIFIED (L90.5) 12:06 PM [employer]IC[employer] WRITER SALES DERMATOPATHOLOGY LABORATORY Clinical History Bx proven, R/O SCC 4 12:06 PM [employer]IC[employer] WRITER SALES DERMATOPATHOLOGY LABORATORY Gross Description Specimen A: Received is one formalin filled container labeled with the patient's name and designated right upper arm. The specimen consists of a non-oriented ellipse of skin measuring 68r88s0 mm. The epidermal surface is unremarkable. The margin is inked green. The 12 o'clock and 6 o'clock tips are submitted in cassette 1. The remainder of the ellipse is serially sectioned and submitted in cassette 2. Jar 0. 4 12:06 PM [facility] DERMATOPATHOLOGY LABORATORY Microscopic Description Specimen A. SKIN, right upper arm: There are fibroblasts and collagen bundles oriented parallel to the skin surface. There are elongated blood vessels, some of which are oriented perpendicular to the skin surface. No residual squamous cell carcinoma is identified. 4 12:06 PM [facility] DERMATOPATHOLOGY LABORATORY Disclaimer An external and internal positive and negative controls are appropriate for the histochemical, immunohistochemical and immunofluorescence stain(s) in this case (if any), except where stated explicitly. The performance characteristics of the stain(s) cited in this report were developed and its performance characteristic determined by the Dermatopathology Laboratory at [facility], directed by Dr. Nica Diaz. These tests need not be, and therefore are not, approved by the [place] Food and Drug Administration. The tests are used for clinical purposes. Billing Codes Specimen Charges Stain Charges 32972 1 4 12:06 PM [facility] DERMATOPATHOLOGY LABORATORY Embedded Images 4 12:06 PM [facility] DERMATOPATHOLOGY LABORATORY Pathology/Cytolo gy TISSUE SPECIMEN FROM SKIN / Unknown 02/22/2024 8:43 AM POLICY WRITER SALES 02/22/2024 3:46 PM POLICY WRITER SALES Hilaria Kaur DO LAB - PATHOLOGY/C YTOLOGY ORDERABLES DERMATOPATHOLOGY LABORATORY [facility] - Department of Dermatology [address], [address] [phone] * (ABNORMAL) GLUCOSE - POINT OF CARE (09/23/2023 12:31 PM CDT) Glucose WB/POC 225(H) 70 - 115 mg/dL 09/23/2023 12:36 PM CDT [facility] Specimen Type Cap Fingerstick 2023 12:36 PM CDT [facility] Blood BLOOD SPECIMEN / Unknown 09/23/2023 12:31 PM CDT 09/23/2023 12:36 PM CDT Val Gross MD LAB - POINT OF CARE ORDERABLES [facility] [address] [place] [address], [facility] [phone] from Last 3 Months or Most Recently Relevant to Health Maintenance Advance Directives Documents on File Type Date Recorded 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
--- OUTSIDE RECORDS SUMMARY | 2024-04-30 16:36 | XMS_ITS | Encounter Summary ---
Author Organization [facility] Address 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
--- OUTSIDE RECORDS SUMMARY | 2024-04-30 16:36 | XMS_ITS | Encounter Summary ---
Author Organization [facility] Address 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 MANAGEMENT Gender Identity Not on file Sexual Orientation [...] AM CDT Narrative 01/02/2008 12:01 PM CDT [facility] [address] [place], [place] [address] Admit Date: 01/01/2008 KAMRAN LAU Sex: F Admit Prov: MAGED ARDON Date: 1945 Primary Care Prov: CMRN: [id number] Room: ANG SSN: [id number] IMAGING SERVICES Ordering Prov: MAGED ARDON Accession Number: [id number] Interpretation BILATERAL SCREENING DIGITAL MAMMOGRAMS WITH COMPUTER [...] AMK Procedure Note Kristy Leon - 01/02/[address] [address] Admit Date: 01/01/2008 KAMRAN LAU Sex: F Admit Prov: DUGLAS MAGED Pizano Date: 1945 [facility] Prov: CMRN: [id number] Room: ANG SSN: [id number] IMAGING SERVICES Ordering Prov: MAGED ARDON Interpretation [...] Recommendation: Normal interval follow-up Dictated by: KRISTY LOEN Electronically signed by: KRISTY LEON 01/02/2008 11:59 Transcribed: 01/01/2008 20:52 AMK Maged Ardon MD MAMMO ORDERABLES Final Result documented in this encounter Visit Diagnoses Diagnosis Other screening mammogram documented in this encounter Care Teams Director Of Enterprise Architecture Relationship Specialty Start Date End Date Jung Regalado MD [address] [place] [address] PCP - General 01/20/09 documented as of this encounter
--- OUTSIDE RECORDS SUMMARY | 2024-04-30 16:36 | XMS_ITS | Encounter Summary ---
Author Organization [facility] Address [address] [place] [address] Care Team Providers Care Therapist Occupational Name Role Phone Jung Regalado MD Primary Care Provider + [phone] Encounter Details Date Type Department Care Team (Latest Contact Info) Description 05/22/1998 Outpatient Historical HIS [facility] MICHELINE Gonzalez, Maged Pizano MD NO ADDRESS ON FILE Other screening mammogram (Primary Dx) Social History Tobacco Use Types Packs/Day Years Used Date Smoking Tobacco: Never Assessed Comments Unknown Sex and Gender Information Value Date Recorded Sex Assigned at Not on file Legal Sex Female 4:20 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
--- OUTSIDE RECORDS SUMMARY | 2024-04-30 16:36 | XMS_ITS | Clinical Summary ---
Author Organization [facility] Address [address] [place] [address] Care Team Providers Care Hand Scraper Name Role Phone Zhanna Cordero MD Primary Care Provider [phone] Allergies No known active allergies Medications ELIQUIS [...] Department Care Team Description 04/18/2024 Misc Documentation [facility], [address] [address] Leonardo Cr MD Research 04/17/2024 Mis Documentation [facility], [address] [address] Leonardo Cr MD Research 02/15/2024 Mis Documentation [facility], [place] [address] [place] [address] Leonardo Cr MD Research 02/14/2024 Telephone [facility], [address] [address] Shelby Reyna, RN Research 02/03/2024 10:15 AM TEXTILE ENGRAVER Office Visit [facility] [address] [address] Aram Garcia MD Atrial Fibrillation (consult); Hypertension 02/03/2024 Travel from Last 3 Months Social History Tobacco Use Types Packs/Day Years Used Date Smoking Tobacco: Never Assessed Comments Unknown Sex and Gender Information Value Date Recorded Sex Assigned at Not on file Legal Sex Female 10:22 PM TEXTILE ENGRAVER Gender Identity Not on file Sexual Orientation Not on file Last Filed Vital Signs Vital Sign Reading Time Taken Comments Blood Pressure 124/72 02/03/2024 10:04 AM TEXTILE ENGRAVER Pulse 71 02/03/2024 10:04 AM TEXTILE ENGRAVER Temperature - - Respiratory Rate - - Oxygen Saturation 98% 02/03/2024 10:04 AM TEXTILE ENGRAVER Inhaled Oxygen Concentration - - Weight 78.2 kg (172 lb 8 oz) 02/03/2024 10:04 AM TEXTILE ENGRAVER Height 156.2 cm (5' 1.5 ) 02/03/2024 10:04 AM CS T Body Mass Index 32.07 02/03/2024 10:04 AM TEXTILE ENGRAVER Plan of Treatment Upcoming Encounters Date Type Department Care Team (Late st Contact Info) Description 08/24/2024 11:15 AM CDT Office Visit [facility] [address] Aram Garcia MD [facility] [address] [place] [address] Health Maintenance Due Date Last [...] to complete this topic Insurance Care Teams Hand Scraper Relationship Specialty Start Date End Date Zhanna Cordero MD [address] [place] [address] PCP - General FAMILY PRACTICE 11/25/23
--- OUTSIDE RECORDS SUMMARY | 2024-04-30 16:36 | XMS_ITS | Encounter Summary ---
Author Organization [facility] Address [address] [place] [address] Care Team Providers Care Fairground Operator Name Role Phone Jung Regalado MD Unavailable [phone] Zhanna Cordero MD Primary Care Provider [phone] Encounter Details Date Type Department Care Team (Late st Contact Info) Description 02/07/2023 Lab Requisition [facility] - DermPath Lab [address], [place] [address] Hilaria Kaur DO [address] [facility] [address] [place] [address] Social History Tobacco Use Types Packs/Day Years [...] Diagnosis Comments DERMATOPATHOLOGY Routine 02/07/2023 9:31 AM HALF SOLE FITTER documented in this encounter Results * DERMATOPATHOLOGY (02/07/2023 9:31 AM HALF SOLE FITTER) Case Report Dermatopathology Report Case: [id number] Authorizing Provider: Hilaria Kaur DO Collected: 02/07/2023 09:31 AM Ordering Location: [facility] DermPath Lab Received: 02/08/2023 01:06 PM Pathologist: Hailee Su MD Specimens: A) - Skin, left hand B) - Skin, left lat LE C) - Skin, right wrist 10:50 AM [facility] DERMATOPATHOLOGY LABORATORY Final Diagnosis Specimen A. SKIN, left hand: SQUAMOUS CELL CARCINOMA, WELL DIFFERENTIATED (C44.629) Specimen B. SKIN, left lat LE: SQUAMOUS PROLIFERATION (D48.5) (see microscopic description and comment) Specimen C. SKIN, right wrist: ACTINIC KERATOSIS, LICHENOID (L57.0) 10:50 AM [facility] DERMATOPATHOLOGY LABORATORY Clinical History A-C: R/O NMSC 10:50 AM [facility] DERMATOPATHOLOGY LABORATORY [...] measuring 7x7x1 mm. Jar 0. 10:50 AM [facility] DERMATOPATHOLOGY LABORATORY [...] some basal vacuolar alteration. 3 10:50 AM [facility] DERMATOPATHOLOGY LABORATORY Disclaimer An external and internal positive and negative controls are appropriate for the histochemical, immunohistochemical and immunofluorescence stain(s) in this case (if any), except where stated explicitly. The performance characteristics of the stain(s) cited in this report were developed and its performance characteristic determined by the Dermatopathology Laboratory at [facility], directed by Dr. Nica Diaz. These tests need not be, and therefore are not, approved by the [place] Food and Drug Administration. The tests are used for clinical purposes. Billing Codes Specimen Charges Stain Charges 45508 16562 87784 1 1 1 3 10:50 AM [facility] DERMATOPATHOLOGY LABORATORY Embedded Images 3 10:50 AM [facility] DERMATOPATHOLOGY LABORATORY Pathology/Cytology TISSUE SPECIMEN FROM SKIN / Unknown 02/07/2023 9:31 AM HALF SOLE FITTER 02/08/2023 1:06 PM HALF SOLE FITTER Miscellaneous samples (specimen) TISSUE SPECIMEN FROM SKIN / Unknown 02/07/2023 9:31 AM HALF SOLE FITTER 02/08/2023 1:06 PM HALF SOLE FITTER Miscellaneous samples (specimen) TISSUE SPECIMEN FROM SKIN / Unknown 02/07/2023 9:31 AM HALF SOLE FITTER 02/08/2023 1:06 PM HALF SOLE FITTER Hilaria Kaur DO LAB - PATHOLOGY/C YTOLOGY ORDERABLES DERMATOPATHOLOGY LABORATORY [facility] - Department of Dermatology [facility] [address] [place] [address], [address] [place] [address], [facility] [phone] documented in this encounter Visit Diagnoses Not on filedocumented in this encounter Care Teams Fairground Operator Relationship Specialty Start Date End Date Zhanna Cordero MD [address] [place] [address] PCP - General 12/01/21 Jung Regalado MD [address] [place] [address] Family Medicine 03/16/10 documented as of this encounter
--- OUTSIDE RECORDS SUMMARY | 2024-04-30 16:36 | XMS_ITS | Encounter Summary ---
Author Organization [facility] Address 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
--- OUTSIDE RECORDS SUMMARY | 2024-04-30 16:36 | XMS_ITS | Encounter Summary ---
Author Organization [employer] Address [address] [place] [address] Care Team Providers Care Dog Warden Name Role Phone Jung Regalado MD Primary Care Provider + [phone] Encounter Details Date Type Department Care Team (Late st Contact Info) Description 07/20/2004 Outpatient Historical [facility] Support Serv. (Adt Cardiology-[facility]) [address] 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
--- OUTSIDE RECORDS SUMMARY | 2024-04-30 16:36 | XMS_ITS | Encounter Summary ---
Author Organization [facility] Address [address] [place] [address] Care Team Providers Care Ldr Rn Name Role Phone Jung Regalado MD Primary Care Provider + [phone] Encounter Details Date Type Department Care Team (Latest Contact Info) Description 05/29/1999 Outpatient Historical [facility] MICHELINE Gonzalez, Maged Pizano MD NO ADDRESS ON FILE Nonspecific abnormal findings on radiological or other examinations of the breast (Primary Dx) Social History Tobacco Use Types Packs/Day Years Used Date Smoking Tobacco: Never Assessed Comments Unknown Sex and Gender Information Value Date Recorded Sex Assigned at Not on file Legal Sex Female 4:20 AM TALENT ACQUISITION OPERATIONS MANAGER Gender Identity Not on file Sexual Orientation Not on file documented as of this encounter Plan of Treatment Not on file documented as of this encounter Visit Diagnoses Diagnosis Nonspecific abnormal findings on radiological or other examinations of the breast- Primary documented in this encounter Care Teams Ldr Rn Relationship Specialty Start Date End Date Jung Regalado MD [address] [place] [address] PCP - General 01/20/09 documented as of this encounter
--- OUTSIDE RECORDS SUMMARY | 2024-04-30 16:36 | XMS_ITS | Encounter Summary ---
Author Organization [facility] Address [address] [facility] [place] [address] Care Team Providers Care Occupational Therapist Home Based Name Role Phone Jung Regalado MD Unavailable [phone] Zhanna Cordero MD Primary Care Provider [phone] Encounter Details Date Type Department Care Team (Late st Contact Info) Description 02/22/2024 Lab Requisition [facility] - DermPath Lab [address] [facility], [place] [address] Hilaria Kaur DO [address] [facility] 3 [place] [address] Social History Tobacco Use Types Packs/Day Years [...] and heating? Not hard at all 09/16/2023 [place] [facility] - Occupational Stress [...] place to sleep or slept in a [place] health care facility (including now)? No 09/16/2023 Sex and Gender [...] Diagnosis Comments DERMATOPATHOLOGY Routine 02/22/2024 8:43 AM CLIENT SERVICE EXECUTIVE documented in this encounter Results * DERMATOPATHOLOGY (02/22/2024 8:43 AM CLIENT SERVICE EXECUTIVE) Case Report Dermatopathology Report Case: [id number] Authorizing Provider: Hilaria Kaur DO Collected: 02/22/2024 08:43 AM Ordering Location: [facility] - Received: 02/22/2024 03:46 PM DermPath Lab Pathologist: Antonieta Zazueta MD Specimen: Skin, right upper arm 12:06 PM CLIENT SERVICE EXECUTIVE DERMATOPATHOLOGY LABORATORY Final Diagnosis Specimen A. SKIN, right upper arm: DERMAL SCAR RESIDUAL SQUAMOUS CELL CARCINOMA NOT IDENTIFIED (L90.5) 12:06 PM [facility] DERMATOPATHOLOGY LABORATORY Clinical History Bx proven, R/O SCC 12:06 PM [facility] DERMATOPATHOLOGY LABORATORY Gross Description Specimen A: Received is one formalin filled container labeled with the patient's name and designated right upper arm. The specimen consists of a non-oriented ellipse of skin measuring 61d01y5 mm. The epidermal surface is unremarkable. The margin is inked green. The 12 o'clock and 6 o'clock tips are submitted in cassette 1. The remainder of the ellipse is serially sectioned and submitted in cassette 2. Jar 0. 12:06 PM [facility] DERMATOPATHOLOGY LABORATORY Microscopic Description Specimen A. SKIN, right upper arm: There are fibroblasts and collagen bundles oriented parallel to the skin surface. There are elongated blood vessels, some of which are oriented perpendicular to the skin surface. No residual squamous cell carcinoma is identified. 12:06 PM [facility] DERMATOPATHOLOGY LABORATORY Disclaimer An external and internal positive and negative controls are appropriate for the histochemical, immunohistochemical and immunofluorescence stain(s) in this case (if any), except where stated explicitly. The performance characteristics of the stain(s) cited in this report were developed and its performance characteristic determined by the Dermatopathology Laboratory at [facility], directed by Dr. Nica Diaz. These tests need not be, and therefore are not, approved by the [place] Food and Drug Administration. The tests are used for clinical purposes. Billing Codes Specimen Charges Stain Charges 67307 1 4 12:06 PM CLIENT SERVICE EXECUTIVE DERMATOPATHOLOGY LABORATORY Embedded Images 4 12:06 PM CLIENT SERVICE EXECUTIVE DERMATOPATHOLOGY LABORATORY Pathology/Cytolo gy TISSUE SPECIMEN FROM SKIN / Unknown 02/22/2024 8:43 AM CLIENT SERVICE EXECUTIVE 02/22/2024 3:46 PM CLIENT SERVICE EXECUTIVE Hilaria Kaur DO LAB - PATHOLOGY/C YTOLOGY ORDERABLES DERMATOPATHOLOGY LABORATORY [facility] - Department of Dermatology [facility] [address] [place] [address], [address] [phone] documented in this encounter Visit Diagnoses Not on filedocumented in this encounter Care Teams Occupational Therapist Home Based Relationship Specialty Start Date End Date Zhanna Cordero MD [address] [place] [address] PCP - General 12/01/21 Jung Regalado MD [address] [place] [address] Family Medicine 03/16/10 documented as of this encounter
--- OUTSIDE RECORDS SUMMARY | 2024-04-30 16:36 | XMS_ITS | Encounter Summary ---
Author Organization [facility] Address 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
--- OUTSIDE RECORDS SUMMARY | 2024-04-30 16:36 | XMS_ITS | Encounter Summary ---
Author Organization [facility] Address [address] [facility] [place] [address] Care Team Providers Care Senior Project Controls Specialist Name Role Phone Jung Regalado MD Unavailable Zhanna Cordero MD Primary Care Provider [phone] Encounter Details Date Type Department Care Team (Late st Contact Info) Description 01/23/2024 Lab Requisition [facility] - DermPath Lab [address] [facility], [place] [address] Hilaria Kaur DO [address] [facility] 3 [place] [address] Social History Tobacco Use Types Packs/Day Years [...] and heating? Not hard at all 09/16/2023 [place] [facility] - Occupational Stress [...] Comments DERMATOPATHOLOGY Routine 01/23/2024 11:2 0 AM SPECIALIST FIELD ENGINEER documented in this encounter Results * DERMATOPATHOLOGY (01/23/2024 11:20 AM SPECIALIST FIELD ENGINEER) Case Report Dermatopathology Report Case: [id number] Authorizing Provider: Hilaria Kaur DO Collected: 01/23/2024 11:20 AM Ordering Location: [facility] - Received: 01/24/2024 07:30 AM DermPath Lab Pathologist: Jenny Flores MD Specimens: A) - Skin, right upper arm B) - Skin, left ventral forearm C) - Skin, left anterior LE D) - Skin, right anterior LE 4:22 PM SPECIALIST FIELD ENGINEER DERMATOPATHOLOGY LABORATORY Final Diagnosis Specimen A. SKIN, right upper arm: SQUAMOUS CELL CARCINOMA, KERATOACANTHOMA TYPE (C44.622) Specimen B. SKIN, left ventral forearm: COMPOUND MELANOCYTIC NEVUS, IRRITATED (D22.62) (see microscopic description and comment) Specimen C. SKIN, left anterior LE: LARGE CELL ACANTHOMA (D23.9) Specimen D. SKIN, right anterior LE: HYPERPLASTIC (HYPERTROPHIC) ACTINIC KERATOSIS, LICHENOID (L57.0) 4:22 PM SPECIALIST FIELD ENGINEER DERMATOPATHOLOGY LABORATORY Clinical History A: R/O NMSC B: R/O Melanoma C-D: R/O NMSC 4:22 PM [facility] DERMATOPATHOLOGY LABORATORY Gross Description Specimen A: Received [...] 6x5x1 mm. Jar 0. 4 4:22 PM [facility] DERMATOPATHOLOGY LABORATORY Microscopic Description Specimen A. SKIN, [...] and some basal vacuolar alteration. 4:22 PM [facility] DERMATOPATHOLOGY LABORATORY Disclaimer An external and internal positive and negative controls are appropriate for the histochemical, immunohistochemical and immunofluorescence stain(s) in this case (if any), except where stated explicitly. The performance characteristics of the stain(s) cited in this report were developed and its performance characteristic determined by the Dermatopathology Laboratory at [facility], directed by Dr. Nica Diaz. These tests need not be, and therefore are not, approved by the [place] Food and Drug Administration. The tests are used for clinical purposes. Billing Codes Specimen Charges Stain Charges 70622 46415 93066 53475 1 1 1 1 13410 78917 91250 1 1 1 4:22 PM [facility] DERMATOPATHOLOGY LABORATORY Embedded Images 4:22 PM [facility] DERMATOPATHOLOGY LABORATORY Pathology/Cytology TISSUE SPECIMEN FROM SKIN / Unknown 01/23/2024 11:20 AM SPECIALIST FIELD ENGINEER 01/24/2024 7:30 AM [facility] Miscellaneous samples (specimen) TISSUE SPECIMEN FROM SKIN / Unknown 01/23/2024 11:20 AM SPECIALIST FIELD ENGINEER 01/24/2024 7:30 AM SPECIALIST FIELD ENGINEER Miscellaneous samples (specimen) TISSUE SPECIMEN FROM SKIN / Unknown 01/23/2024 11:20 AM SPECIALIST FIELD ENGINEER 01/24/2024 7:30 AM SPECIALIST FIELD ENGINEER Miscellaneous samples (specimen) TISSUE SPECIMEN FROM SKIN / Unknown 01/23/2024 11:20 AM SPECIALIST FIELD ENGINEER 01/24/2024 7:30 AM SPECIALIST FIELD ENGINEER Hilaria Ethel Kaur DO LAB - PATHOLOGY/C YTOLOGY ORDERABLES DERMATOPATHOLOGY LABORATORY [facility] - Department of Dermatology [facility] Specialized Medicine [address] [place] [address], [address] [phone] documented in this encounter Visit Diagnoses Not on filedocumented in this encounter Care Teams Senior Project Controls Specialist Relationship Specialty Start Date End Date Zhanna Cordero MD [address] [place] [address] PCP - General 12/01/21 Jung Regalado MD [address] [place] [address] Family Medicine 03/16/10 documented as of this encounter
--- OUTSIDE RECORDS SUMMARY | 2024-04-30 16:36 | XMS_ITS | Encounter Summary ---
Author Organization [facility] Address [address] [place] [address] Care Team Providers Care Bandoleer Packer Name Role Phone Jung Regalado MD Primary Care Provider + [phone] Encounter Details Date Type Department Care Team (Latest Contact Info) Description 08/28/2001 Outpatient Historical HIS [facility] MICHELINE Gonzalez, Maged Pizano MD NO ADDRESS ON FILE DIFFUS CYSTIC MASTOPATHY (Primary Dx) Social History Tobacco Use Types Packs/Day Years Used Date Smoking Tobacco: Never Assessed Comments Unknown Sex and Gender Information Value Date Recorded Sex Assigned at Not on file Legal Sex Female 4:20 AM FILENET DEVELOPER Gender Identity Not on file Sexual Orientation Not on file documented as of this encounter Plan of Treatment Not on file documented as of this encounter Visit Diagnoses Diagnosis Diffuse cystic mastopathy- Primary documented in this encounter Care Teams Bandoleer Packer Relationship Specialty Start Date End Date Jung Regalado MD [address] [place] [address] PCP - General 01/20/09 documented as of this encounter
--- OUTSIDE RECORDS SUMMARY | 2024-04-30 16:36 | XMS_ITS | Encounter Summary ---
Author Organization [facility] Address [address] [place] [address] Care Team Providers Care Benefits Consultant Name Role Phone Jung Regalado MD Primary Care Provider + [phone] Encounter Details Date Type Department Care Team (Latest Contact Info) Description 05/18/1999 Outpatient Historical HIS [facility] MICHELINE Gonzalez, Maged Pizano MD NO ADDRESS ON FILE Other screening mammogram (Primary Dx) Social History Tobacco Use Types Packs/Day Years Used Date Smoking Tobacco: Never Assessed Comments Unknown Sex and Gender Information Value Date Recorded Sex Assigned at Not on file Legal Sex Female 4:20 AM AIRBORNE OPERATIONS 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
--- OUTSIDE RECORDS SUMMARY | 2024-04-30 16:36 | XMS_ITS | Encounter Summary ---
Author Organization [facility] Care Team Providers Care Lamination Builder Name Role Phone Jung Regalado MD Primary Care Provider [phone] Zhanna Cordero MD Primary Care Provider [phone] Encounter Details Date Type Department Care Team (Latest Contact Info) Description 02/08/2017 Orders Only [facility] CLINCONV ProviderConstance MD [address] [place] [address] Social History Tobacco Use Types Packs/Day Years Used Date Smoking Tobacco: Never Comments Unknown Sex and Gender Information Value Date Recorded Sex Assigned at Not on file Legal Sex Female 11:28 AM CASING MAN Gender Identity Female 06/30/2022 6:11 AM CDT Sexual Orientation Straight 06/30/2022 6: 11 AM CDT documented as of this encounter Plan of Treatment Not on file documented as of this encounter Procedures Procedure Name Priority Date/Time Associated Diagnosis Comments PROCEDURE - RESULT 02/10/2017 12 :00 AM CASING MAN PROCEDURE - RESULT 02/08/2017 12 :00 AM CASING MAN documented in this encounter Results * PROCEDURE - RESULT (02/10/2017 12:00 AM CASING MAN) Narrative 02/10/2017 12:00 AM CASING MAN Ordered by an unspecified provider. Historical Provider Final Res ult * PROCEDURE - RESULT (02/08/2017 12:00 AM CASING MAN) Narrative 02/08/2017 12:00 AM CASING MAN Ordered by an unspecified provider. us Historical Provider Final Res ult documented in this encounter Visit Diagnoses Not on filedocumented in this encounter Care Teams Lamination Builder Relationship Specialty Start Date End Date Jung Regalado MD [address] [place] [address] PCP - General 10/05/16 05/21/20 Zhanna Cordero MD [address] [place] [address] PCP - General Family Medicine 05/22/20 documented as of this encounter
--- OUTSIDE RECORDS SUMMARY | 2024-04-30 16:36 | XMS_ITS | Encounter Summary ---
Author Organization [employer] Address 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 Gender Identity Not on file Sexual Orientation [...] URINE ORDERABLES Final Result Performing Organization Address [facility] Phone Number INTERFACE SYSTEM Refer to clinic/hospital [...] ORDERABLES Final R esult Performing Organization Address [facility] Phone Number INTERFACE SYSTEM Refer to clinic/hospital [...] ORDERABLES Final R esult Performing Organization Address City/State/[facility] Co de Phone Number INTERFACE SYSTEM Refer to clinic/hospital department * HEMOGLOBIN AND HEMATOCRIT (07/20/2004 9:52 AM CDT) HEMOGLOBIN 14.0 11.8 - 14.8 g/dL INTERFACE SYSTEM HEMATOCRIT 40.4 35.5 - 44.0 % INTERFACE SYSTEM 07/20/2004 9:52 AM CDT Maged Gonzalez MD HEMATOLOGY ORDERABLES Final R esult Performing Organization Address City/State/[facility] Co de Phone Number INTERFACE SYSTEM [...] Primary documented in this encounter Care Teams Order Checker Relationship Specialty Start Date End Date Jung Regalado MD [address] [place] [address] PCP - General 01/20/09 documented as of this encounter
--- OUTSIDE RECORDS SUMMARY | 2024-04-30 16:37 | XMS_ITS | Continuity of Care Document ---
Author Organization [facility] Address [address] [place] [address] [address] [place] [address] Phone Care Team Providers Care Fisher Diver Net Name Role Phone Olman Zelaya Unavailable Unavailable Advance Directives Directive Yes / No Effective Date File Name No Information Encounters Encounter Description Practice Location Reason(s) For Visit Diagnoses Date Provider Providers Copied on Encounter [facility], [address], [place], [place], [id number], [place] tel:[phone] [facility] No Information [address]. [address] , [address], [place], [address], [place]. tel:[phone] Family History Family Member Type Diagnosis Age At Onset No Information Payers Payer name Insurance type Covered alliance party ID Authoriza tion(s) [employer] SOI CI [id number] Social History Type Description Quantity Date Captured [...]
--- OUTSIDE RECORDS SUMMARY | 2024-04-30 16:37 | XMS_ITS | Continuity of Care Document ---
Author Organization [facility] Address [address] [place] [address] Phone Care Team Providers Care Structural Steel Worker Helper Name Role Phone Miguel Vernon MD Unavailable Unavailable Medications Medication Instructions Dosage Effective Dates (start - stop) Status Comments FEXOFENADINE HCL 180 MG TABLET 1 QD-daily - Active PATANOL 0.1% EYE DROPS 1 BID - Act jb NASONEX 50 MCG NASAL SPRAY 2 QAM - Active XOPENEX HFA 45MCG PUFFS 2 Q 6HR - Active FEXOFENADINE HCL 180 MG TABLET 1 QD-daily [...] Diagnoses Date Provider Providers Copied on Encounter [facility], [address], [place], [place], [id number], [place] tel:[phone] [facility] No Information 1 Saulo Rivera. [address] [place] [address], [id number], [place]. tel:[phone] [facility], [address], [place], [place], [id number], [place] tel:[phone] [facility] INTRINSIC ASTHMA NOSALLERGIC RHINITIS NEC 7 Saulo Rivera. [address], [id number], . [phone] [facility], [address], [place], [place], [id number], tel:[phone] [facility] AC ATOPIC CONJUNCTIVITIS 6 Saulo Rivera. [address], [id number], . [phone] [facility], [address], [place], [place], [id number], tel:[phone] [facility] BENIGN HYPERTENSION 6 Conversion Doctor. [address] [place] [address], [address], . Family History Family Member Type Diagnosis Age At Onset No Information Payers Payer name Insurance type Covered libertarian ID Authoriza tion(s) No Information Social History [...]
--- OUTSIDE RECORDS SUMMARY | 2024-04-30 16:37 | XMS_ITS | Encounter Summary ---
Author Organization [facility] Address [address] [place] [address] Care Team Providers Care Iron Bender Name Role Phone Jung Regalado MD Primary Care Provider [phone] Zhanna Cordero MD Primary Care Provider [phone] Encounter Details Date Type Department Care Team (Late st Contact Info) Description 09/24/2019 Telephone [facility] [address] [place] [address] Estela Beltran, RT Social History Tobacco Use Types Packs/Day Years Used Date Smoking Tobacco: Never Smokeless Tobacco: Never Alcohol Use Standard Drinks/Week Comments Yes 0 (1 standard drink = 0.6 oz pur e alcohol) socially Comments Unknown Sex and Gender Information Value Date Recorded Sex Assigned at Not on file 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 Gender Identity Female 06/30/2022 6:11 AM CDT Sexual Orientation Straight 06/30/2022 6: 11 AM CDT Occupation Industry Job Start Date Job End Date retired Not on file Not on file Not on file documented as of this encounter Plan of Treatment Not on file documented as of this encounter Visit Diagnoses Not on filedocumented in this encounter Care Teams Iron Bender Relationship Specialty Start Date End Date Jung Regalado MD [address] [place] [address] PCP - General 10/05/16 05/21/20 Zhanna Cordero MD [address] [place] [address] PCP - General Family Medicine 05/22/20 documented as of this encounter
--- OUTSIDE RECORDS SUMMARY | 2024-04-30 16:37 | XMS_ITS | Encounter Summary ---
Author Organization [facility] Address [address] [place] [address] Care Team Providers Care Skin Care Instructor Name Role Phone Jung Regalado MD Unavailable [phone] Jung Regalado MD Primary Care Provider + [phone] Zhanna Cordero MD Primary Care Provider [phone] Encounter Details Date Type Department Care Team (Late st Contact Info) Description 06/07/2018 Lab Requisition [facility] Care DermPath Lab [address] [facility], [place] [address] Abiola Stoddard MD [address] [facility] 3 [place] [address] Social History Tobacco Use Types Packs/Day Years [...] AM CDT) Case Report Dermatopathology Report Case: [id number] Authorizing Provider: Abiola Stoddard MD Collected: 06/06/2018 [...] of a non-oriented ellipse of skin measuring 08r73h3 mm. The epidermal surface is unremarkable. The [...] characteristic determined by the Dermatopathology Laboratory at [facility], directed by Dr. Nica Diaz. These tests need not be, and therefore are not, approved by the [place] Food and Drug Administration. The tests are used for clinical purposes. Billing Codes Specimen Charges Stain Charges 15105 1 12:25 PM T DERMATOPATHOLOGY LABORATORY Embedded Images 03/28/201 9 12:25 PM CDT DERMATOPATHOLOGY LABORATORY Pathology/Cytolog y TISSUE SPECIMEN FROM SKIN / Unknown 06/06/2018 06/07/2018 7:02 AM CDT Abiola Stoddard MD LAB - PATHOLOGY/CYT OLOGY ORDERABLES DERMATOPATHOLOGY LABORATORY [facility] - Department of Dermatology [address] [place] [address] 5th Floor Lab [address] [phone] documented in this encounter Visit Diagnoses Not on filedocumented in this encounter Care Teams Skin Care Instructor Relationship Specialty Start Date End Date Jung Regalado MD [address] [place] [address] PCP - General 07/12/17 11/30/21 Zhanna Cordero MD [address] [place] [address] PCP - General 12/01/21 Jung Regalado MD [address] [place] [address] Family Medicine 03/16/10 documented as of this encounter
--- OUTSIDE RECORDS SUMMARY | 2024-04-30 16:37 | XMS_ITS | Encounter Summary ---
Author Organization [facility] Address [address] [place] [address] Care Team Providers Care Death Claim Examiner Name Role Phone Jung Regalado MD Unavailable [phone] uJng Regalado MD Primary Care Provider + [phone] Zhanna Cordero MD Primary Care Provider [phone] Encounter Details Date Type Department Care Team (Late st Contact Info) Description 04/26/2018 Lab Requisition [facility] Care DermPath Lab [address] [facility], [place] [address] Abiola Stoddard MD [address] [facility] 3 [place] [address] Social History Tobacco Use Types Packs/Day Years [...] on filedocumented in this encounter Care Teams Death Claim Examiner Relationship Specialty Start Date End Date Jung Regalado MD [address] [place] [address] PCP - General 07/12/17 11/30/21 Zhanna Cordero MD [address] [place] [address] PCP - General 12/01/21 Jung Regalado MD [address] [place] [address] Family Medicine 03/16/10 documented as of this encounter
--- OUTSIDE RECORDS SUMMARY | 2024-04-30 16:37 | XMS_ITS | Clinical Summary ---
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
--- OUTSIDE RECORDS SUMMARY | 2024-04-30 16:37 | XMS_ITS | Encounter Summary ---
Author Organization [facility] Address [address] [facility] [place] [address] Care Team Providers Care Gatehouse Attendant Name Role Phone Jung Regalado MD Unavailable [phone] Jung Regalado MD Primary Care Provider + [phone] Zhanna Cordero MD Primary Care Provider [phone] Encounter Details Date Type Department Care Team (Late st Contact Info) Description 04/26/2018 Lab Requisition [facility] Care D[facility] Lab [address] [facility], [place] [address] Abiola Stoddard MD [address] [facility] 3 [place] [address] Social History Tobacco Use Types Packs/Day Years [...] DERMATOPATH TECHNICAL REPORT Routine 04/25/2018 12:00 AM INSURANCE LOSS ADJUSTER documented in this encounter Results * DERMATOPATH TECHNICAL REPORT (04/25/2018 12:00 AM INSURANCE LOSS ADJUSTER) Case Report Dermatopathology Report Case: [id number] Authorizing Provider: Abiola Stoddard MD Collected: 04/25/2018 12:00 AM Pathologist: Freida Diehl MD Received: 04/26/2018 10:46 AM Specimen: Skin, right post thigh 12:27 PM [facility] DERMATOPATHOLOGY LABORATORY Addendum 1 At the request of the diagnosing physician, the technical component for [place]-1/Melan A was performed by [facility] Dermatopathology Laboratory. 12:27 PM [facility] DERMATOPATHOLOGY LABORATORY Addendum electronically signed by Freida Diehl MD on 04/28/2018 at 12:27 PM Clinical History Nevus, irr color, irr border. 12:27 PM [facility] DERMATOPATHOLOGY LABORATORY Gross Description Specimen A: Received is one formalin filled container labeled with the patient's name and designated right post thigh. The specimen consists of a shave measuring [id number]. Jar 0. [facility] Dermatopathology Laboratory performed the technical component only. 12:27 PM [facility] DERMATOPATHOLOGY LABORATORY Embedded Images 12:27 PM [facility] DERMATOPATHOLOGY LABORATORY DISCLAIMER An external and internal positive and negative controls are appropriate for the histochemical, immunohistochemical and immunofluorescence stain(s) in this case (if any), except where stated explicitly. The performance characteristics of the stain(s) cited in this report were developed and its performance characteristic determined by the Dermatopathology Laboratory at [facility], directed by Dr. Nica Daiz. These tests need not be, and therefore are not, approved by the [place] Food and Drug Administration. The tests are used for clinical purposes. 12:27 PM [facility] DERMATOPATHOLOGY LABORATORY Pathology/Cytolog y TISSUE SPECIMEN FROM SKIN / Unknown 04/25/2018 04/26/2018 10:46 AM INSURANCE LOSS ADJUSTER Abiola Stoddard MD LAB - PATHOLOGY/CYT OLOGY ORDERABLES DERMATOPATHOLOGY LABORATORY [facility] - Department of Dermatology [address] [place] [address] 5th Floor Lab [address] [phone] documented in this encounter Visit Diagnoses Not on filedocumented in this encounter Care Teams Gatehouse Attendant Relationship Specialty Start Date End Date Jung Regalado MD [address] [place] [address] PCP - General 07/12/17 11/30/21 Zhanna Cordero MD [address] [place] [address] PCP - General 12/01/21 Jung Regalado MD [address] [place] [address] Family Medicine 03/16/10 documented as of this encounter
--- OUTSIDE RECORDS SUMMARY | 2024-04-30 16:37 | XMS_ITS | Clinical Summary ---
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
[2024-04-30] MEDS: NITROFURANTOIN MONOHYD MACROCR 100 MG CAP PO (16:42)
[2024-04-30] MEDS: CYCLOBENZAPRINE HCL 10 MG TABLET PO (16:42)
[2024-04-30] MEDS: HYDROcodone/acetaminophen (*CRX) 5-325 MG TABLET 1 TAB PO (16:43)
== END 2024-04-30 16:46 | disposition home or self-care (01) ==
PROVIDERS: Emergency Provider Emergency Medicine; PCP Family Medicine
DX: M54.9 Dorsalgia, unspecified (principal); N39.0 Urinary tract infection, site not specified; M47.816 Spondylosis without myelopathy or radiculopathy, lumbar region; M47.814 Spondylosis without myelopathy or radiculopathy, thoracic region; M41.9 Scoliosis, unspecified; F41.9 Anxiety disorder, unspecified; I12.9 Hypertensive chronic kidney disease with stage 1 through stage 4 chronic kidney disease, or unspecified chronic kidney disease; N18.30 Chronic kidney disease, stage 3 unspecified
CPT/HCPCS: 72072; 72100; 81001; 87086; 99283; A9270

== ENCOUNTER 2024-10-29 11:11 | Emergency (ER) | payer MEDICARE, SELFPAY ==
--- NOTE | ~2024-10-29 | XR_ITS ---
EXAM/PROCEDURE: XR chest 2V - 10/29/2024 13:05 CDT HISTORY: 78 years old Female with CP TECHNIQUE: Two view(s) of the chest. COMPARISON: None available. FINDINGS: LUNGS/ PLEURA: No focal consolidation. No appreciable pneumothorax or large pleural effusion. HEART/ MEDIASTINUM: Heart appears normal in size. BONES: Degenerative changes. OTHER: Visualized upper abdomen is unremarkable. Partially visualized intact left shoulder arthroplas ty. Cholecystectomy clips are seen. IMPRESSION: No acute process. Reviewed, dictated and finalized at location A. IMPRESSION: No acute process.
--- NOTE | 2024-10-29 11:23 | ECG_ITS ---
Test Date: 2024-10-29 11:26:59 Measurements Intervals [place] Rate: 95 P: 0 AR: 0 QRS: -13 QRSD: 97 T: 31 QT: 342 QTc: 431 Interpretive Statements ATRIAL FIBRILLATION POSSIBLE ANTERIOR MYOCARDIAL INFARCTION , PROBABLY OLD BORDERLINE ST-T WAVE ABNORMALITY- INF/HIGH LAT LEADS BASELINE ARTIFACT- I, II, III, AVR, AVL, AVF, V1-V6 ABNORMAL ECG No previous ECG available for comparison Electronically Signed On 10-29-2024 11:29:59 CDT by Rajesh Austin D.O.
[2024-10-29 11:28] VITALS: BP 164/101; PULSE 93; RESP 20; TEMP 36.7; O2SAT 96
[2024-10-29 11:51] LABS: Hematocrit 45.0 % (37.0-47.0); Hemoglobin 15.8 g/dL (12.0-15.0); Immature Granulocyte Percent A 0.4 % (0-0.5); Lymphocytes Absolute Auto 2.47 K/mm3 (0.9-3.2); Mean Corpuscular HGB Conc 35.1 g/dl (32-36); Mean Corpuscular Hemoglobin 33.4 pg (26-34); Mean Corpuscular Volume 95.1 fl (80-100); Nucleated Red Blood Cells Absolute Auto 0.000 K/mm3 (0.0-0.012); Nucleated Red Blood Cells Perc 0.0 % (0.0-0.2); Platelet Count Result 275 k/mm3 (150-375); Red Blood Count 4.73 M/mm3 (4.2-5.4); White Blood Count 9.8 K/mm3 (4.5-10.0)
[2024-10-29 11:59] LABS: Alanine Aminotransferase 27 U/L (6-35); Albumin Level 4.2 g/dL (3.5-5.1); Alkaline Phosphatase 54 U/L (38-126); Anion Gap 8 mmol/L (4-12); Aspartate Amino Transferase 33 U/L (14-36); Bilirubin,Total 0.7 mg/dL (0.2-1.3); Blood Urea Nitrogen 23 mg/dL (7-17); Calcium 9.7 mg/dL (8.4-10.2); Carbon Dioxide 26 mmol/L (22-30); Chloride 103 mmol/L (98-107); Estimated CRCL calculation 42 ml/min; Estimated Glomerular Filt Rate 57; Glucose 108 mg/dL (65-110); Lipase 33 U/L (23-300); Potassium 3.4 mmol/L (3.4-5.0); Sodium 137 mmol/L (137-145); Total Protein 7.4 g/dL (6.3-8.2)
[2024-10-29 12:10] LABS: Troponin I < 0.012 ng/mL (0.000-0.034)
[2024-10-29 12:12] LABS: INR 1.3; Prothrombin Time 16.0 Seconds (11.1-14.7)
[2024-10-29 12:13] LABS: Partial Thromboplastin Time 28.3 Seconds (22.3-36.8)
--- OUTSIDE RECORDS SUMMARY | 2024-10-29 12:31 | XMS_ITS | Encounter Summary ---
Author Organization [facility] Address [address] [facility] [place] [address] Care Team Providers Care Marzipan Maker Name Role Phone Jung Regalado MD Unavailable [phone] Zhanna Cordero MD Primary Care Provider Encounter Details Date Type Department Care Team (Late st Contact Info) Description 01/23/2024 Lab Requisition [facility] - DermPath Lab [address] [facility] [place] [address] Hilaria Kaur DO [address] [facility] 3 DE[place] [address] Social History Tobacco Use Types Packs/Day Years [...] and heating? Not hard at all 09/16/2023 [place] [employer] [facility] - Occupational Stress [...] place to sleep or slept in a chcf (including now)? No 09/16/2023 Comments No Sex and Gender Information Value Date Recorded Sex Assigned at Not on file Legal Sex Female 6:[address]ERK Gender Identity Not on file Sexual Orientation Not on file documented as of this encounter Functional Status * Is person deaf or have serious hearing difficulty? Answer Date of Assessment Author No 09/17/2023 5:44 AM Elsa Webb RN * Is person blind or have serious difficulty seeing? Answer Date of Assessment Author No 09/17/2023 5:44 AM Elsa Webb RN * Does person have serious difficulty walking/climbing stairs? Answer Date of Assessment Author Yes 09/17/2023 5:44 AM Elsa Webb RN * Does person have difficulty dressing/bathing? Answer Date of Assessment Author Yes 09/17/2023 5:44 AM Elsa Webb RN * Does person have difficulty doing errands alone? Answer Date of Assessment Author Yes 09/17/2023 5:44 AM CDT Elsa Matute RN documented as of this encounter Mental Status * Does person have difficulty concentrating/remembering/making decisions? Answer Entry Date Author Yes 09/17/2023 5:44 AM CDT Elsa Matute RN documented in this encounter Plan of Treatment Not on file documented as of this encounter Procedures Procedure Name Priority Date/Time Associated Diagnosis Comments DERMATOPATHOLOGY Routine 01/23/2024 11:[address] CLERK documented in this encounter Results * DERMATOPATHOLOGY (01/23/2024 11:[address] CLERK) Case Report Dermatopathology Report Case: [id number] Authorizing Provider: Hilaria Kaur DO Collected: 01/23/2024 11:20 AM Ordering Location: [facility] - Received: 01/24/2024 07:30 AM DermPath Lab Pathologist: Jenny Flores MD Specimens: A) - Skin, right upper arm B) - Skin, left ventral forearm C) - Skin, left anterior LE D) - Skin, right anterior LE 4:[address] CLERK DERMATOPATHOLOGY LABORATORY Final Diagnosis Specimen A. SKIN, right upper arm: SQUAMOUS CELL CARCINOMA, KERATOACANTHOMA TYPE (C44.622) Specimen B. SKIN, left ventral forearm: COMPOUND MELANOCYTIC NEVUS, IRRITATED (D22.62) (see microscopic description and comment) Specimen C. SKIN, left anterior LE: LARGE CELL ACANTHOMA (D23.9) Specimen D. SKIN, right anterior LE: HYPERPLASTIC (HYPERTROPHIC) ACTINIC KERATOSIS, LICHENOID (L57.0) 4:[address] CLERK DERMATOPATHOLOGY LABORATORY at [address] CLERK Clinical History A: R/O NMSC B: R/O Melanoma C-D: R/O NMSC 4:[address] CLERK DERMATOPATHOLOGY LABORATORY Gross Description Specimen A: Received [...] 6x5x1 mm. Jar 0. 4 4:22 PM [facility] DERMATOPATHOLOGY [...] apoptotic keratinocytes and some basal vacuolar alteration. 4 4:22 PM [facility] DERMATOPATHOLOGY LABORATORY Disclaimer An external and internal positive and negative controls are appropriate for the histochemical, immunohistochemical and immunofluorescence stain(s) in this case (if any), except where stated explicitly. The performance characteristics of the stain(s) cited in this report were developed and its performance characteristic determined by the Dermatopathology Laboratory at [facility], directed by Dr. Nica Diaz. These tests need not be, and therefore are not, approved by the [place] Food and Drug Administration. The tests are used for clinical purposes. Billing Codes Specimen Charges Stain Charges 04379 61375 74554 44439 1 1 1 1 02953 57814 12451 1 1 1 4 4:[address] CLERK DERMATOPATHOLOGY LABORATORY Embedded Images 4 4:[address] CLERK DERMATOPATHOLOGY LABORATORY Pathology/Cytology TISSUE SPECIMEN FROM SKIN / Unknown 01/23/2024 11:[address] CLERK 01/24/2024 7:[address] CLERK Miscellaneous samples (specimen) TISSUE SPECIMEN FROM SKIN / Unknown 01/23/2024 11:[address] CLERK 01/24/2024 7:[address] CLERK Miscellaneous samples (specimen) TISSUE SPECIMEN FROM SKIN / Unknown 01/23/2024 11:[address] CLERK 01/24/2024 7:[address] CLERK Miscellaneous samples (specimen) TISSUE SPECIMEN FROM SKIN / Unknown 01/23/2024 11:[address] CLERK 01/24/2024 7:[address] CLERK us Hilaria Kaur DO LAB - PATHOLOGY/CYTOLOGY ORDERABLES Final Result Performing Organization Address City/State/[facility] Co de Phone Number DERMATOPATHOLOGY LABORATORY [facility] - Department of Dermatology [facility] Medicine [address] [place] [address], [address]rd Floor [address] [phone] documented in this encounter Visit Diagnoses Not on filedocumented in this encounter Care Teams Marzipan Maker Relationship Specialty Start Date End Date Zhanna Cordero MD [address] [place] [address] PCP - General 12/01/21 Jung Regalado MD [address] [place] [address] Family Medicine 03/16/10 documented as of this encounter
--- OUTSIDE RECORDS SUMMARY | 2024-10-29 12:31 | XMS_ITS | Encounter Summary ---
Author Organization [facility] Address 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
--- OUTSIDE RECORDS SUMMARY | 2024-10-29 12:31 | XMS_ITS | Encounter Summary ---
Author Organization [facility] Address 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
--- OUTSIDE RECORDS SUMMARY | 2024-10-29 12:31 | XMS_ITS | Encounter Summary ---
Author Organization [facility] Address [address] [place] [address] Care Team Providers Care Hogshead Builder Name Role Phone Jung Regalado MD Primary Care Provider + [phone] Encounter Details Date Type Department Care Team (Latest Contact Info) Description 05/29/1999 Outpatient Historical HIS [facility] MICHELINE Gonzalez, Maged Pizano MD NO ADDRESS ON FILE Nonspecific abnormal findings on radiological or other examinations of the breast (Primary Dx) Social History Tobacco Use Types Packs/Day Years Used Date Smoking Tobacco: Never Assessed Comments Unknown Sex and Gender Information Value Date Recorded Sex Assigned at Not on file 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
--- OUTSIDE RECORDS SUMMARY | 2024-10-29 12:31 | XMS_ITS | Encounter Summary ---
Author Organization [employer] [facility] Address [address] [place] [address] Care Team Providers Care Oil And Gas Drafter Name Role Phone Jung Regalado MD Primary Care Provider + [phone] Encounter Details Date Type Department Care Team (Latest Contact Info) Description 11/30/1999 Outpatient Historical HIS [facility] MICHELINE Diaz, Jung Jean-Baptiste MD [address] [address] Other specified disorder of breast (Primary Dx) Social History Tobacco Use Types Packs/Day Years Used Date Smoking Tobacco: Never Assessed Comments Unknown Sex and Gender Information Value Date Recorded Sex Assigned at Not on file Legal Sex Female 4:20 AM FRUIT GROWER Gender Identity Not on file Sexual Orientation Not on file documented as of this encounter Plan of Treatment Not on file documented as of this encounter Visit Diagnoses Diagnosis Other specified disorder of breast- Primary documented in this encounter Care Teams Oil And Gas Drafter Relationship Specialty Start Date End Date Jung Regalado MD [address] [place] [address] PCP - General 01/20/09 documented as of this encounter
--- OUTSIDE RECORDS SUMMARY | 2024-10-29 12:31 | XMS_ITS | Encounter Summary ---
Author Organization [facility] Address [address] [facility] [place] [address] Care Team Providers Care Accounting Office Manager Name Role Phone Jung Regalado MD Unavailable [phone] Zhanna Cordero MD Primary Care Provider [phone] Encounter Details Date Type Department Care Team (Late st Contact Info) Description 02/07/2023 Lab Requisition [facility] - DermPath Lab [address] [facility], [place] [address] Hilaria Kaur DO [address] [facility] [address] [place] [address] Social History Tobacco Use Types Packs/Day Years [...] on one occasion? Less than monthly 02/05/2022 Comments No Sex and Gender Information Value Date Recorded Sex Assigned at Not on file Legal Sex Female 6:18 AM BLACKSMITH APPRENTICE Gender Identity Not on file Sexual Orientation Not on file documented as of this encounter Plan of Treatment Not on file documented as of this encounter Procedures Procedure Name Priority Date/Time Associated Diagnosis Comments DERMATOPATHOLOGY Routine 02/07/2023 9:31 AM BLACKSMITH APPRENTICE documented in this encounter Results * DERMATOPATHOLOGY (02/07/2023 9:31 AM BLACKSMITH APPRENTICE) Case Report Dermatopathology Report Case: [id number] Authorizing Provider: Hilaria Kaur DO Collected: 02/07/2023 09:31 AM Ordering Location: [facility] Received: 02/08/2023 01:06 PM Pathologist: Hailee Su MD Specimens: A) - Skin, left hand B) - Skin, left lat LE C) - Skin, right wrist 10:50 AM [facility] Final Diagnosis Specimen A. SKIN, left hand: SQUAMOUS CELL CARCINOMA, WELL DIFFERENTIATED (C44.629) Specimen B. SKIN, left lat LE: SQUAMOUS PROLIFERATION (D48.5) (see microscopic description and comment) Specimen C. SKIN, right wrist: ACTINIC KERATOSIS, LICHENOID (L57.0) 10:50 AM [facility] at 1050 BLACKSMITH APPRENTICE Clinical History A-C: R/O NMSC 10:50 AM [facility] Gross Description Specimen A: [...] measuring 7x7x1 mm. Jar 0. 10:50 AM [facility] Microscopic Description Specimen A. [...] some basal vacuolar alteration. 3 10:50 AM [facility] Disclaimer An external and internal positive and negative controls are appropriate for the histochemical, immunohistochemical and immunofluorescence stain(s) in this case (if any), except where stated explicitly. The performance characteristics of the stain(s) cited in this report were developed and its performance characteristic determined by the Dermatopathology Laboratory at [facility], directed by Dr. Nica Diaz. These tests need not be, and therefore are not, approved by the [place] Food and Drug Administration. The tests are used for clinical purposes. Billing Codes Specimen Charges Stain Charges 83645 81891 80514 1 1 1 3 10:50 AM [facility] Embedded Images 3 10:50 AM [facility] Pathology/Cytology TISSUE SPECIMEN FROM SKIN / Unknown 02/07/2023 9:31 AM BLACKSMITH APPRENTICE 02/08/2023 1:06 PM BLACKSMITH APPRENTICE Miscellaneous samples (specimen) TISSUE SPECIMEN FROM SKIN / Unknown 02/07/2023 9:31 AM BLACKSMITH APPRENTICE 02/08/2023 1:06 PM BLACKSMITH APPRENTICE Miscellaneous samples (specimen) TISSUE SPECIMEN FROM SKIN / Unknown 02/07/2023 9:31 AM BLACKSMITH APPRENTICE 02/08/2023 1:06 PM BLACKSMITH APPRENTICE us Hilaria Kaur DO LAB - PATHOLOGY/CYTOLOGY ORDERABLES Final Result DERMATOPATHOLOGY LABORATORY [facility] - Department of Dermatology [facility] Medicine [address] [place] [address], [address] [phone] documented in this encounter Visit Diagnoses Not on filedocumented in this encounter Care Teams Accounting Office Manager Relationship Specialty Start Date End Date Zhanna Cordero MD [address] [place] [address] PCP - General 12/01/21 Jung Regalado MD [address] [place] [address] Family Medicine 03/16/10 documented as of this encounter
--- OUTSIDE RECORDS SUMMARY | 2024-10-29 12:31 | XMS_ITS | Encounter Summary ---
Author Organization [facility] Address 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
--- OUTSIDE RECORDS SUMMARY | 2024-10-29 12:31 | XMS_ITS | Clinical Summary ---
Author Organization [facility] Address [address] [place] [address] Care Team Providers Care Clean Room Operator Name Role Phone Zhanna Cordero MD Primary Care Provider [phone] Allergies No known active allergies Medications acyclovir [...] mouth every morning 90 capsule 4 Active Hospital, Clinic, or Other Facility Administered Medication Ordered Dose Route Frequency Start Date End Date Status lidocaine (XYLOCAINE) 10 mg/mL (1 %) injection 1 mLIndications:Adminis tration of Local Anesthesia 1 mL One-Time Injection 10/02/2024 5 Ended lidocaine (XYLOCAINE) 10 mg/mL (1 %) injection 1 mLIndications:Adminis tration of Local Anesthesia 1 mL One-Time Injection 10/02/2024 5 Ended methylPREDNISolone acetate (DEPO-medrol) injection 40 mgIndications:Arthrit is of carpometacarpal (CMC) joint of right thumb 40 mg intra-artic One-Time Injection 10/02/2024 5 Ended methylPREDNISolone acetate (DEPO-medrol) injection 40 mgIndications:Trigger index finger of left hand 40 mg intra-artic One-Time Injection 10/02/2024 5 Ended Active Problems Problem Noted Date Diagnosed Date Chest pain 11/09/2022 Anxiety 11/09/2022 Palpitations 04/23/2021 Pain in joint involving right ankle and foot Chronic anticoagulation 10/17/2020 History of 2019 novel coronavirus disease (COVID -19) 05/22/2020 Paroxysmal atrial fibrillation (CMS/HCC) 020 Moderate right ventricular systolic dysfunction 01/28/2020 Left carpal tunnel syndrome 10/09/2019 Overview (10/09/2019): Added automatically from request for surgery [id number] Chronic pain of left knee 11/17/2018 Chronic [...] intervertebral disc 05/2010 HTN (hypertension), benign 03/16/2010 Encounters Date Type Department Care Team Description 10/02/2024 3:00 PM CDT Office Visit [facility] Orthopaedic Surgery [address] [place] [address] 2nd [address] [place] [address] Shree Ramos MD Arthritis of carpometacarpal (CMC) joint of right thumb (Primary Dx); Trigger index finger of left hand 08/27/2024 1:03 PM CDT - 08/27/2024 11:59 PM CDT Hospital Encounter [facility] [address] [place] [address] Screening mammogram, encounter for Discharge Disposition: Discharge to home or self care from Last 3 Months Surgical History Surgery Date Site/Laterality Comments PA TOTAL ABDOMINAL HYSTERECT W/WO RMVL TUBE OVARY Hysterectomy - (Added by TW Conv) PA ARTHROPLASTY GLENOHUMERAL JOINT TOTAL SHOULDER Left Shoulder [...] LASIK 2016 TUBAL LIGATION 1978 BARIATRIC SURGERY 2005 Medical History Medical History Date Comments Hypertension Lumbar spondylosis Levoscoliosis Lumbar facet arthropathy Osteoarthritis Carpal tunnel syndrome Awareness under anesthesia D&C ~ 1970s, recalls drs/nurses back to her while ET was in place Vulvodynia Insomnia Anxiety Obesity Diverticulosis Arthritis Atrial fibrillation (HCC) History of rheumatic fever In ch ildhood Covid-19 GERD (gastroesophageal reflux disease) Osteoporosis Cataract Heart disease Afib 2019 Rheumatic fever Childhood Family History Medical History Relation Name Comments Arthritis Brother 1 Rodolfo gombis Arthritis Brother 2 Sheree gombos Arthritis Father [place] Cancer Father [place] g[place] colon Heart disease Father [place] Hypertension Father [place] Breast cancer Maternal Grandmother Bone cancer Mother Breast cancer Mother Breast cancer Paternal Grandmother Arthritis Sister Mary oreilly Breast cancer Sister Mary oreilly Anesthesia problems Neg Hx Relation Name Status Comments Brother 1 Rodolfo gojoseis Alive Brother 2 Sheree gombos Alive Father [...] on file Legal Sex Female 11:28 AM SKI PATROL DIRECTOR Gender Identity Female 06/30/2022 6:11 AM CDT [...] 36.6 C (97.8 F) 01/22/2020 11:10 AM SKI PATROL DIRECTOR Respiratory Rate 20 01/31/2020 10:46 AM SKI PATROL DIRECTOR Oxygen Saturation 97% 11/08/2023 10:01 AM CDT Inhaled Oxygen Concentration - - Weight 76.2 kg (168 lb) 08/27/2024 1:33 PM CDT Height 157.5 cm (5' 2) 08/27/2024 1:33 PM CDT Body Mass Index 30.73 08/27/2024 1:33 PM CDT Plan of Treatment Health Maintenance Due Date Last Done Comments Depression Screening 1945 Hepatitis C Screening 1945 DTaP/Tdap/Td Vaccine (1 - Tdap) 12/08/1958 Hepatitis B Screening 12/08/1965 Pneumococcal vaccine 65+ (1 of 1 - PCV) 12/08/1997 Zoster Vaccine (1 of 2) 12/08/1997 Well Visit 65+ 12/08/2012 Fall Risk Assessment 01/30/2021 01/31/2020 Influenza Vaccine (#1) 2024 , 01/03/2020, 11/12/2017 Osteoporosis Screening-Bone Density Scan 07/18/2025 07/19/2023, 07/19/2023, 07/15/2022, Additional history exists Breast Cancer Screening-Mammogram Discontinued 08/27/2024, 08/26/2023, 06/30/2022, Additional history exists Medical Devices Implanted Type Area Phytopathology Teacher Device Identifier Shelf Expiration Date Model / Serial / Lot Shoulder Replacement Left: Shoulder Procedures Procedure Name Priority Date/Time Associated Diagnosis Comments PA INJECTION 1 TENDON SHEATH/LIGAMENT APONEUROSIS Routine 10/02/2024 3:00 PM CDT Trigger index finger of left hand PA ARTHROCENTESIS ASPIR&/INJ SMALL JT/BURSA W/O US Routine 10/02/2024 3:00 PM CDT Arthritis of carpometacarpal (CMC) joint of right thumb SCREENING MAMMOGRAM BILATERAL W GREG Schedule Routine, Read Routine (OP Routine) 08/27/2024 1:33 PM CDT Screening mammogram, encounter for from Last 3 Months Results * PA INJECTION 1 TENDON SHEATH/LIGAMENT APONEUROSIS (10/02/2024 3:00 PM CDT) Narrative Shree Ramos MD - 10/02/2024 3:00 PM CDT Shree Ramos MD 10/02/2024 4:19 PM Hand / Upper Extremity Injection: L index A1 Performed by: Shree Ramos MD Authorized by: Shree Ramos MD Consent Given by: Patient Verbal consent obtained?: Yes Indications: Pain Condition: trigger finger Location: Index finger Site: L index A1 Prep: patient was prepped and draped in usual sterile fashion Needle Size: 25 G Approach: Dorsal Ultrasound guidance: No Medications Left Index Injection: 1 mL lidocaine 10 mg/mL (1 %); 40 mg methylPREDNISolone acetate 40 mg/mL Patient tolerance: Patient tolerated the procedure well with no immediate complications After a discussion of the pros, cons, risks, and benefits of a cortisone injection, the patient requested that we proceed. We specifically discussed the risks of skin lightening, subcutaneous fat atrophy, pain upon injection and the possibility of a flare reaction. The patient wished to proceed. us Shree Ramos MD IN CLINIC/BEDSIDE ORDERAB LES Final Result * PA ARTHROCENTESIS ASPIR&/INJ SMALL JT/BURSA W/O US (10/02/2024 3:00 PM CDT) Narrative Shree Ramos MD - 10/02/2024 3:00 PM CDT Shree Ramos MD 10/02/2024 4:19 PM Small Joint Injection: R thumb CMC Performed by: Shree Ramos MD Authorized by: Shree Ramos MD Supporting Documentation: Indications: Pain Procedure Details: Location: Thumb Site: R thumb CMC Ultrasound guidance: No Medications: 40 mg methylPREDNISolone acetate 40 mg/mL; 1 mL lidocaine 10 mg/mL (1 %) Today we recommended a steroid injection. Risks of the injection were explained to include infection, flare reaction, skin depigmentation, dimpling, temporary elevation in blood sugars in patients with diabetes, and possible tendon rupture damage to cartilage with repeated injections. Injection performed with an alcohol and Betadine preparation. us Shree Ramos MD IN CLINIC/BEDSIDE ORDERAB LES Final Result * Screening Mammogram Bilateral W Greg (08/27/2024 1:33 PM CDT) Anatomical Region Laterality Modality Breast Bilateral Mammography Impressions 08/27/2024 2:38 PM CDT Bilateral No evidence of malignancy in either breast. OVERALL BI-RADS FINAL ASSESSMENT: 2 - Benign RECOMMENDATION: Recommend bilateral annual screening mammography. Narrative 08/27/2024 2:38 PM CDT EXAMINATION: Screening Mammogram Bilateral W Greg: 08/27/2024 COMPARISON: Relevant prior studies available at the time of interpretation were reviewed. TECHNIQUE: Mammography was performed with 2D and digital breast tomosynthesis (DBT) images. CAD was utilized. BREAST PARENCHYMAL COMPOSITION: There are scattered areas of fibroglandular density. FINDINGS: There are postoperative changes in the left breast, and there are biopsy clips in the right breast. No suspicious masses, suspicious calcifications, or other suspicious findings are seen within either breast. There has been no suspicious change. us Self Screening Mammogram IMG MAMMO PROCEDURES Fi nal Result from Last 3 Months Insurance [facility] MEDICARE ADVANTAGE [facility] MEDICARE ADVANTAGE [employer] MEDICARE ADVANTAGE Advance Directives For more information, please contact: [phone] Documents on File Type Date Recorded Patient Resilient Tile Installer Expl anation ADVANCE DIRECTIVE 12/21/2018 12:00 AM [facility] OF PATIENT FINANCIAL COORDINATOR FINANCIAL/MEDICAL Care Teams Clean Room Operator Relationship Specialty Start Date End Date Zhanna Cordero MD PCP - General Family Medicine 05/22/20
--- OUTSIDE RECORDS SUMMARY | 2024-10-29 12:31 | XMS_ITS | Encounter Summary ---
Author Organization [facility] Address [address] [place] [address] Care Team Providers Care Environmental Conflict Manager Name Role Phone Jung Regalado MD Primary Care Provider + [phone] Encounter Details Date Type Department Care Team (Latest Contact Info) Description 05/22/1998 Outpatient Historical HIS [facility] MICHELINE Gonzalez, Maged Pizano MD NO ADDRESS ON FILE Other screening mammogram (Primary Dx) Social History Tobacco Use Types Packs/Day Years Used Date Smoking Tobacco: Never Assessed Comments Unknown Sex and Gender Information Value Date Recorded Sex Assigned at Not on file Legal Sex Female 4:20 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
--- OUTSIDE RECORDS SUMMARY | 2024-10-29 12:31 | XMS_ITS | Encounter Summary ---
Author Organization [facility] Address [address] [place] [address] Care Team Providers Care Inspector Precision Assembly Name Role Phone Jung Regalado MD Primary Care Provider + [phone] Encounter Details Date Type Department Care Team (Latest Contact Info) Description 01/01/2008 Outpatient Historical HIS [facility] Maged Anne MD NO ADDRESS ON FILE Other Screening Mammogram Social History Tobacco Use Types Packs/Day Years Used Date Smoking Tobacco: Never Assessed Comments Unknown Sex and Gender Information Value Date Recorded Sex Assigned at Not on file Legal Sex Female 4:20 AM PREMIUM REPRESENTATIVE Gender Identity Not on file Sexual Orientation [...] AM CDT Narrative 01/02/2008 12:01 PM CDT [facility] [address] [facility] [place], [place] [address] Admit Date: 01/01/2008 KAMRAN LAU Sex: F Admit Prov: MAGED ARDON Date: 1945 Primary Care Prov: CMRN: [id number] Room: ANG SSN: [id number] IMAGING SERVICES Ordering Prov: MAGED ARDON Accession Number: [id number] Interpretation BILATERAL SCREENING DIGITAL MAMMOGRAMS WITH COMPUTER [...] AMK Procedure Note Kristy Leon - 01/02/[address] [address] Admit Date: 01/01/2008 KAMRAN LAU Sex: F Admit Prov: MAGED ARDON Date: 1945 [facility] Prov: CMRN: [id number] Room: ANG SSN: [id number] IMAGING SERVICES Ordering Prov: MAGED ARDON Interpretation [...] LEON 01/02/2008 11:59 Transcribed: 01/01/2008 20:52 [facility] us Maged Ardon MD MAMMO ORDERABLES Final Result documented in this encounter Visit Diagnoses Diagnosis Other screening mammogram documented in this encounter Care Teams Inspector Precision Assembly Relationship Specialty Start Date End Date Jung Regalado MD [address] [place] [address] PCP - General 01/20/09 documented as of this encounter
--- OUTSIDE RECORDS SUMMARY | 2024-10-29 12:31 | XMS_ITS | Encounter Summary ---
Author Organization [facility] Address [address] [place] [address] Care Team Providers Care Miller First Name Role Phone Jung Regalado MD Primary Care Provider + [phone] Encounter Details Date Type Department Care Team (Latest Contact Info) Description 09/23/2005 Outpatient Historical HIS [facility] MICHELINE Gonzalez, Maged Pizano MD NO ADDRESS ON FILE Other Screening Mammogram (Primary Dx) Social History Tobacco Use Types Packs/Day Years Used Date Smoking Tobacco: Never Assessed Comments Unknown Sex and Gender Information Value Date Recorded Sex Assigned at Not on file Legal Sex Female 4:20 AM TOOLROOM CLERK Gender Identity Not on file Sexual Orientation Not on file documented as of this encounter Plan of Treatment Not on file documented as of this encounter Visit Diagnoses Diagnosis Other screening mammogram- Primary documented in this encounter Care Teams Miller First Relationship Specialty Start Date End Date Jung Regalado MD [address] [place] [address] PCP - General 01/20/09 documented as of this encounter
--- OUTSIDE RECORDS SUMMARY | 2024-10-29 12:31 | XMS_ITS | Encounter Summary ---
Author Organization [facility] Address [address] [place] [address] Care Team Providers Care Outer Diameter Grinder Tool Name Role Phone Jung Regalado MD Primary Care Provider + [phone] Encounter Details Date Type Department Care Team (Latest Contact Info) Description 09/03/[address] [facility] MICHELINE Gonzalez, Maged Pizano MD NO ADDRESS ON FILE SCREENING MAMM-MALIG NEOPL-HI RISK (Primary Dx) Social History Tobacco Use Types Packs/Day Years Used Date Smoking Tobacco: Never Assessed Comments Unknown Sex and Gender Information Value Date Recorded Sex Assigned at Not on file Legal Sex Female 4:20 AM HOG FEEDER Gender Identity Not on file Sexual Orientation Not on file documented as of this encounter Plan of Treatment Not on file documented as of this encounter Visit Diagnoses Diagnosis Screening mammogram for high-risk patient- Primary documented in this encounter Care Teams Outer Diameter Grinder Tool Relationship Specialty Start Date End Date Jung Regalado MD [address] [place] [address] PCP - General 01/20/09 documented as of this encounter
--- OUTSIDE RECORDS SUMMARY | 2024-10-29 12:31 | XMS_ITS | Encounter Summary ---
Author Organization [facility] Address [address] [facility] [place] [address] Care Team Providers Care Technical Customer Support Specialist Name Role Phone Jung Regalado MD Unavailable Zhanna Cordero MD Primary Care Provider [phone] Encounter Details Date Type Department Care Team (Late st Contact Info) Description 02/23/2023 Lab Requisition [facility] - DermPath Lab [address] [facility] [place] [address] Janis Santiago MD [address] [place] [address] Social History Tobacco Use Types [...] on file Legal Sex Female 6:18 AM ADVANCED DEVELOPER Gender Identity Not on file Sexual Orientation Not on file documented as of this encounter Plan of Treatment Not on file documented as of this encounter Procedures Procedure Name Priority Date/Time Associated Diagnosis Comments DERMATOPATHOLOGY Routine 02/23/2023 1:27 PM ADVANCED DEVELOPER documented in this encounter Results * DERMATOPATHOLOGY (02/23/2023 1:27 PM ADVANCED DEVELOPER) Case Report Dermatopathology Report Case: [id number] Authorizing Provider: Janis Santiago MD Collected: 02/23/2023 01:27 PM Ordering Location: [facility] DermPath Lab Received: 02/24/2023 07:38 AM Pathologist: Antonieta Zazueta MD Specimen: Skin, left middle finger 3 4:44 PM [facility] DERMATOPATHOLOGY [facility]ORATORY Final Diagnosis Specimen A. SKIN, left middle finger: SQUAMOUS CELL CARCINOMA, WELL DIFFERENTIATED (C44.629) (see microscopic description) 3 4:44 PM [facility] DERMATOPATHOLOGY LABORATORY at 1644 ADVANCED DEVELOPER Clinical History R/O SCC 3 4:44 PM [facility] DERMATOPATHOLOGY [facility]ORATORY Gross Description Specimen A: Received is one formalin filled container labeled with the patient's name and designated left middle finger. The specimen consists of a shave biopsy measuring 4x3x1 mm. Jar 0. 3 4:44 PM [facility] DERMATOPATHOLOGY [facility]ORATORY Microscopic Description Specimen A. SKIN, left middle finger: Arising in the epidermis and extending into the dermis there are irregularly shaped aggregates of keratinocytes showing evidence of premature cornification. A focus in which basaloid nests are observed is negative for BerEp4 and is lost on deeper level sections. 3 4:44 PM [facility] DERMATOPATHOLOGY LABORATORY Disclaimer An external and internal positive and negative controls are appropriate for the histochemical, immunohistochemical and immunofluorescence stain(s) in this case (if any), except where stated explicitly. The performance characteristics of the stain(s) cited in this report were developed and its performance characteristic determined by the Dermatopathology Laboratory at [facility], directed by Dr. Nica Diaz. These tests need not be, and therefore are not, approved by the [place] Food and Drug Administration. The tests are used for clinical purposes. Billing Codes Specimen Charges Stain Charges 67729 1 94628 1 3 4:44 PM ADVANCED DEVELOPER DERMATOPATHOLOGY LABORATORY Embedded Images 3 4:44 PM ADVANCED DEVELOPER DERMATOPATHOLOGY LABORATORY Pathology/Cytolo gy TISSUE SPECIMEN FROM SKIN / Unknown 02/23/2023 1:27 PM ADVANCED DEVELOPER 02/24/2023 7:38 AM ADVANCED DEVELOPER Janis Santiago MD LAB - PATHOLOGY/CYTOLOGY ORDERA BLES Final Result DERMATOPATHOLOGY LABORATORY [facility] - Department of Dermatology [facility] Special[facility] Medicine [address] [place] [address], [address] [phone] documented in this encounter Visit Diagnoses Not on filedocumented in this encounter Care Teams Technical Customer Support Specialist Relationship Specialty Start Date End Date Zhanna Cordero MD [address] [place] [address] PCP - General 12/01/21 Jung Regalado MD [address] [place] [address] Family Medicine 03/16/10 documented as of this encounter
--- OUTSIDE RECORDS SUMMARY | 2024-10-29 12:31 | XMS_ITS | Encounter Summary ---
Author Organization [facility] Address [address] [place] [address] Care Team Providers Care Bilingual Social Worker Name Role Phone Jung Regalado MD Primary Care Provider + [phone] Encounter Details Date Type Department Care Team (Latest Contact Info) Description 09/23/2003 Outpatient Historical HIS [facility] MICHELINE Gonzalez, Maged Pizano MD NO ADDRESS ON FILE SCREENING MAMM-MAILG NEOPL-OTHER (Primary Dx) Social History Tobacco Use Types Packs/Day Years Used Date Smoking Tobacco: Never Assessed Comments Unknown Sex and Gender Information Value Date Recorded Sex Assigned at Not on file Legal Sex Female 4:20 AM APPLICATIONS ADMINISTRATOR Gender Identity Not on file Sexual Orientation Not on file documented as of this encounter Plan of Treatment Not on file documented as of this encounter Visit Diagnoses Diagnosis Other screening mammogram- Primary documented in this encounter Care Teams Bilingual Social Worker Relationship Specialty Start Date End Date Jung Regalado MD [address] [place] [address] PCP - General 01/20/09 documented as of this encounter
--- OUTSIDE RECORDS SUMMARY | 2024-10-29 12:32 | XMS_ITS | Encounter Summary ---
Author Organization [facility] Address [address] [facility] [address] Care Team Providers Care Plasterer Spray Gun Name Role Phone Jung Regalado MD Unavailable [phone] Jung Regalado MD Primary Care Provider + [phone] Zhanna Cordero MD Primary Care Provider [phone] Encounter Details Date Type Department Care Team (Late st Contact Info) Description 04/26/2018 Lab Requisition [facility] Care DermPath Lab [address] [facility], [place] [address] Abiola Stoddard MD [address] [facility] [address] [place] [address] Social History Tobacco Use Types Packs/Day Years Used Date Smoking Tobacco: Never Smokeless Tobacco: Never Alcohol Use Standard Drinks/Week Comments Yes 0 (1 standard drink = 0.6 oz pur e alcohol) Comments No Sex and Gender Information Value Date Recorded Sex Assigned at Not on file Legal Sex Female 6:18 AM ALLERGIST/IMMUNOLOGIST Gender Identity Not on file Sexual Orientation Not on file documented as of this encounter Plan of Treatment Not on file documented as of this encounter Visit Diagnoses Not on filedocumented in this encounter Care Teams Plasterer Spray Gun Relationship Specialty Start Date End Date Jung Regalado MD [address] [place] [address] PCP - General 07/12/17 11/30/21 Zhanna Cordero MD [address] [place] [address] PCP - General 12/01/21 Jung Regalado MD [address] [place] [address] Family Medicine 03/16/10 documented as of this encounter
--- OUTSIDE RECORDS SUMMARY | 2024-10-29 12:32 | XMS_ITS | Clinical Summary ---
Author Organization [facility] Address [address] [place] [address] Phone Care Team Providers Care Courtroom Deputy Name Role Phone Jung Regalado MD Primary Care Provider + [phone] Allergies No known active allergies Medications acyclovir [...] (HAIR,SKIN AND NAILS ORAL) Take by mouth. Act jb HYDROcodone-evelia taminophen (NORCO) 10-325 mg Tablet Take 1 Tablet by mouth every 4 hours as needed for Pain, Moderate. Active melatonin 5 mg Tablet Take by mouth nightly as needed. Active triamterene-hyd roCHLOROthiazid e (DYAZIDE) 37.5-25 mg capsule Take 1 Capsule by mouth daily in the morning. Active diphenhydramine HCl (WAL-DRYL ALLERGY ORAL) Take by mouth. A ctive diltiaZEM (CARDIZEM CD) 240 mg Controlled Delivery 24 hour capsule Take 240 mg by mouth daily. 3 Active oxyBUTYnin chloride (DITROPAN XL) 10 mg Extended Release 24 hour tablet Take 10 mg by mouth daily. 3 Active ibandronate (BONIVA) 150 mg tablet TAKE 1 TABLET BY MOUTH ONCE EVERY MONTH 3 Tablet 4 Active Additional Information Patient not taking.Reported on 07/17/2024 cyclobenzaprine (FLEXERIL) 10 mg tablet take 1 tablet by mouth twice daily as needed for muscle spasm Active ascorbic acid, vitamin C, (Vitamin C) 500 mg tablet Active Biotin 10,000 mcg Capsule Take 5,000 mcg by mouth daily. 4 Active cholecalciferol , Vitamin D3, 125 mcg (5,000 unit) Capsule Take 125 mcg by mouth daily. 4 Active ergocalciferol (VITAMIN D2) 50,000 unit capsule Take 50,000 Units by mouth every 7 days. Active nitrofurantoin (MACROBID) 100 mg capsule TAKE 1 CAPSULE BY MOUTH TWICE DAILY FOR 5 DAYS MUST TAKE WITH MEAL/FOOD 5 Active nystatin (NYSTOP) 100,000 unit/gram powder APPLY POWDER TOPICALLY TWICE DAILY 4 Active polyethylene glycol (MIRALAX) 17 gram Powder in Packet Take 17 Grams by mouth 1 time daily as needed. 4 Active potassium CHLORIDE (MICRO-K EXTENCAPS) 10 mEq Extended Release capsule take 1 capsule by mouth twice weekly Active potassium CHLORIDE (KLOR-CON) 10 mEq Extended Release tablet Take by mouth every 24 hours. Active valACYclovir (VALTREX) 1 gram tablet TAKE 2 TABLETS BY MOUTH IN THE MORNING AND 2 IN THE EVENING AT THE ONSET OF COLD SORE FOR 1 DAY Active triamcinolone acetonide (KENALOG) 0.1 % Paste APPLY SMALL AMOUNT TO BLISTERS TWICE DAILY NEEDED 4 Active Active Problems No known active problems Encounters Date Type Department Care Team Description 09/26/2024 External Device Data STL ABSTRACTION Provider, Abstract 09/25/2024 External Device Data STL ABSTRACTION Provider, Abstract 09/04/2024 External Device Data ST[facility] ABSTRACTION Provider, Abstract 08/28/2024 External Device Data ST[facility] ABSTRACTION Provider, Abstract 08/07/2024 External Device Data ST[facility] ABSTRACTION Provider, Abstract 08/02/2024 External Device Data STL ABSTRACTION Provider, Abstract 08/01/2024 External Device Data STL ABSTRACTION Provider, Abstract 07/31/2024 External Device Data STL ABSTRACTION Provider, Abstract from Last 3 Months Immunizations Immunization Administration Dates Next Due INFLUENZA VACCINE HIGH DOSE QUADRIVALENT 65 YR U P PF IM 01/03/2020 Influenza Seasonal Unspecified Formulation IM Respiratory syncytial virus (RSV), unspecified 0 11/13/2023 Family History Medical History Relation Name Comments [...] on file Legal Sex Female 4:20 AM BOOK CRITIC Gender Identity Not on file Sexual Orientation Not on file Occupation Industry Job Start Date Job End Date Not on file Not on file Not on file Not on file Last Filed Vital Signs Vital Sign Reading Time Taken Comments Blood Pressure 116/76 07/17/2024 10:55 AM CDT Pulse - - Temperature - - Respiratory Rate - - Oxygen Saturation - - Inhaled Oxygen Concentration - - Weight 83.6 kg (184 lb 6.4 oz) 07/17/2024 10:55 AM CDT Height 154.9 cm (5' 1) 07/17/2024 10:55 AM CDT Body Mass Index 34.84 07/17/2024 10:55 AM CDT Plan of Treatment Health Maintenance Due Date Last Done Comments DTAP/TDAP/TD VACCINES (1 - Tdap) 12/08/1966 PNEUMOCOCCAL VACCINE 50+ YEA RS (1 of 1 - PCV) 12/08/1997 ZOSTER VACCINE (1 of 2) 12/08/1997 RSV VACCINE (60+ or ) (1 - 1-dose 75+ series) 12/08/2022 11/13/2023 INFLUENZA VACCINE (#1) 2024 11/13/2023, 2019 OSTEOPOROSIS SCREENING 07/18/2028 , 07/15/2022, 07/15/2022, Additional history exists Procedures Procedure [...] Most Recently Relevant to [place] [address] Care Teams Courtroom Deputy Relationship Specialty Start Date End Date Jung Regalado MD [address] [place] [address] PCP - General 01/20/09
--- OUTSIDE RECORDS SUMMARY | 2024-10-29 12:32 | XMS_ITS | Encounter Summary ---
Author Organization [facility] Address [address] [place] [address] Care Team Providers Care High [employer] Auto Repair Teacher Name Role Phone Jung Regalado MD Primary Care Provider + [phone] Encounter Details Date Type Department Care Team (Latest Contact Info) Description 07/24/2004 Inpatient Historical [facility] Maged Gonzalez MD NO ADDRESS ON FILE BENIGN NEOPLASM OVARY (Primary Dx) Social History Tobacco Use Types Packs/Day Years Used Date Smoking Tobacco: Never Assessed Comments Unknown Sex and Gender Information Value Date Recorded Sex Assigned at Not on file Legal Sex Female 4:20 AM AUTOMOBILE SERVICE WRITER Gender Identity Not on file Sexual Orientation [...] Final Result Performing Organization Address [facility] Phone Number INTERFACE SYSTEM Refer to clinic/hospital [...] R esult Performing Organization Address [facility] Phone Number INTERFACE SYSTEM Refer to clinic/hospital [...] ORDERABLES Final R esult Performing Organization Address City/State/[facility] Co de Phone Number INTERFACE SYSTEM Refer to clinic/hospital department * HEMOGLOBIN AND HEMATOCRIT (07/20/2004 9:52 AM CDT) HEMOGLOBIN 14.0 11.8 - 14.8 g/dL INTERFACE SYSTEM HEMATOCRIT 40.4 35.5 - 44.0 % INTERFACE SYSTEM 07/20/2004 9:52 AM CDT Maged Gonzalez MD HEMATOLOGY ORDERABLES Final R esult Performing Organization Address City/State/[facility] Co de Phone Number INTERFACE SYSTEM Refer [...] Primary documented in this encounter Care Teams [employer] Auto Repair Teacher Relationship Specialty Start Date End Date Jung Regalado MD [address] [place] [address] PCP - General 01/20/09 documented as of this encounter
--- OUTSIDE RECORDS SUMMARY | 2024-10-29 12:32 | XMS_ITS | Encounter Summary ---
Author Organization [facility] Address [address] [place] [address] Care Team Providers Care Analytical Data Scientist Name Role Phone Jung Regalado MD Primary Care Provider + [phone] Encounter Details Date Type Department Care Team (Latest Contact Info) Description 10/20/2006 Outpatient Historical HIS [facility] MICHELINE Gonzalez, Maged Pizano MD NO ADDRESS ON FILE Other Screening Mammogram (Primary Dx) Social History Tobacco Use Types Packs/Day Years Used Date Smoking Tobacco: Never Assessed Comments Unknown Sex and Gender Information Value Date Recorded Sex Assigned at Not on file Legal Sex Female 4:20 AM IT ADMINISTRATOR Gender Identity Not on file Sexual Orientation Not on file documented as of this encounter Plan of Treatment Not on file documented as of this encounter Visit Diagnoses Diagnosis Other screening mammogram- Primary documented in this encounter Care Teams Analytical Data Scientist Relationship Specialty Start Date End Date Jung Regalado MD [address] [place] [address] PCP - General 01/20/09 documented as of this encounter
--- OUTSIDE RECORDS SUMMARY | 2024-10-29 12:32 | XMS_ITS | Encounter Summary ---
Author Organization [facility] Address [address] [place] [address] Care Team Providers Care Logistics Operations Director Name Role Phone Jung Regalado MD Unavailable [phone] Jung Regalado MD Primary Care Provider + [phone] Zhanna Cordero MD Primary Care Provider [phone] Encounter Details Date Type Department Care Team (Late st Contact Info) Description 04/26/2018 Lab Requisition [facility] Care DermPath Lab [address] [facility], [place] [address] Abiola Stoddard MD [address] [facility] [place] 3 [place] [address] Social History Tobacco Use Types Packs/Day Years Used Date Smoking Tobacco: Never Smokeless Tobacco: Never Alcohol Use Standard Drinks/Week Comments Yes 0 (1 standard drink = 0.6 oz pur e alcohol) Comments No Sex and Gender Information Value Date Recorded Sex Assigned at Not on file Legal Sex Female 6:18 AM ACCOUNT COORDINATOR Gender Identity Not on file Sexual Orientation Not on file documented as of this encounter Plan of Treatment Not on file documented as of this encounter Procedures Procedure Name Priority Date/Time Associated Diagnosis Comments DERMATOPATH TECHNICAL REPORT Routine 04/25/2018 12:00 AM ACCOUNT COORDINATOR documented in this encounter Results * DERMATOPATH TECHNICAL REPORT (04/25/2018 12:00 AM ACCOUNT COORDINATOR) Case Report Dermatopathology Report Case: [id number] Authorizing Provider: Abiola Stoddard MD Collected: 04/25/2018 12:00 AM Pathologist: Freida Diehl MD Received: 04/26/2018 10:46 AM Specimen: Skin, right post thigh 12:27 PM [facility] Addendum 1 At the request of the diagnosing physician, the technical component for [place]-1/Melan A was performed by [facility] Dermatopathology [facility]. 12:27 PM [facility] Addendum electronically signed by Freida Diehl MD on 04/28/2018 at 1227 ACCOUNT COORDINATOR Clinical History Nevus, irr color, irr border. 12:27 PM [facility] Gross Description Specimen A: Received is one formalin filled container labeled with the patient's name and designated right post thigh. The specimen consists of a shave measuring [id number]. Jar 0. [facility]at[facility] performed the technical component only. 12:27 PM [facility] Embedded Images 12:27 PM [facility] DISCLAIMER An external [...] are used for clinical purposes. 12:27 PM [facility] at 1218 ACCOUNT COORDINATOR Pathology/Cytolog y TISSUE SPECIMEN FROM SKIN / Unknown 04/25/2018 04/26/2018 10:46 AM ACCOUNT COORDINATOR Abiola Stoddard MD LAB - PATHOLOGY/CYTOLOGY OR DERABLES Edited Result - Final DERMATOPATHOLOGY LABORATORY [facility] - Department of Dermatology [address] [place] [address], 5th Floor Lab [address] [phone] documented in this encounter Visit Diagnoses Not on filedocumented in this encounter Care Teams Logistics Operations Director Relationship Specialty Start Date End Date Jung Regalado MD [address] [place] [address] PCP - General 07/12/17 11/30/21 Zhanna Cordero MD [address] [place] [address] PCP - General 12/01/21 Jung Regalado MD [address] [place] [address] Family Medicine 03/16/10 documented as of this encounter
--- OUTSIDE RECORDS SUMMARY | 2024-10-29 12:32 | XMS_ITS | Encounter Summary ---
Author Organization [facility] Address [address] [place] [address] Care Team Providers Care Home Health Specialist Name Role Phone Jung Regalado MD Primary Care Provider [phone] Zhanna Cordero MD Primary Care Provider Encounter Details Date Type Department Care Team (Late st Contact Info) Description 09/24/2019 Telephone [facility] [address] [place] [address] [address] Social History Tobacco Use Types Packs/Day Years Used Date Smoking Tobacco: Never Smokeless Tobacco: Never Alcohol Use Standard Drinks/Week Comments Yes 0 (1 standard drink = 0.6 oz pur e alcohol) socially Comments Unknown Sex and Gender Information Value Date Recorded Sex Assigned at Not on file Legal Sex Female 11:28 AM JAVA J2EE SOFTWARE ENGINEER Gender Identity Female 06/30/2022 6:11 AM CDT Sexual Orientation Straight 06/30/2022 6: 11 AM CDT Occupation Industry Job Start Date Job End Date retired Not on file Not on file Not on file documented as of this encounter Plan of Treatment Not on file documented as of this encounter Visit Diagnoses Not on filedocumented in this encounter Care Teams Home Health Specialist Relationship Specialty Start Date End Date Jung Regalado MD [address] [place] [address] PCP - General 10/05/16 05/21/20 Zhanna Cordero MD [address] [place] [address] PCP - General Family Medicine 05/22/20 documented as of this encounter
--- OUTSIDE RECORDS SUMMARY | 2024-10-29 12:32 | XMS_ITS | Clinical Summary ---
Author Organization [facility] Care Team Providers Care Licensing Engineer Name Role Phone Unavailable Primary Care Provider Unavailabl e Social History Tobacco Use Types Packs/Day Years Used Date Smoking Tobacco: Never Assessed Comments Unknown Sex and Gender Information Value Date Recorded Sex Assigned at Not on file Legal Sex Female 2:08 PM SKETCH ARTIST Gender Identity Not on file Sexual Orientation Not on file Plan of Treatment Health Maintenance Due Date Last Done Comments Hepatitis C Virus (HCV) Screening 1945 TdaP Immunization 1945 Pneumococcal Immunization (5 0+ years) (1 of 1 - PCV) 12/08/1997 Respiratory Syncytial Virus (RSV) Immunization (Adult) (1 - 1-dose 75+ series) 12/08/2022 SARS-COV-2 Immunization ( season) 2023 03/19/2021, 05/21/2020, 04/23/2020 Influenza Immunization (#1) 11/12/202411/13, 01/03/2020 Zoster Immunization Completed 02/23/2021, 12/02/2020 Hepatitis B Immunization Aged Out No longer eligible based on patient's age to complete this topic Human Papillomavirus (HPV) Immunization Aged Out No longer eligible b ased on patient's age to complete this topic Meningococcal Immunization (ACWY) Aged Out No longer eligible b ased on patient's age to complete this topic Rotavirus Immunization Aged Out No lo nger eligible based on patient's age to complete this topic
--- OUTSIDE RECORDS SUMMARY | 2024-10-29 12:32 | XMS_ITS | Clinical Summary ---
Author Organization [email or web address] Address [address] [place] [address] Care Team Providers Care Cdl B Driver Name Role Phone Jung Regalado MD Unavailable [phone] Zhanna Cordero MD Primary Care Provider [phone] Source Comments [email or web address],non-owned Affiliates and Associated Physician Practices is amultiple site organization consisting of ambulatory clinics and hospital sitesin [place], [place], [place] and [place]. This disclosure is being madepursuant to the Care Everywhere program and may not contain all information available regarding this patient. Last updated 17.[email or web address] Allergies No known active allergies Medications * Be aware that medications may not be up to date on this document. Alwaysverify current medications with the patient. dilTIAZem coated beads 24hr (Cardizem CD) 240 MG capsuleIndicati ons:Atrial Fibrillation,Hy pertension Take 1 (one) capsule by mouth once daily Reasons: Atrial Fibrillation, High Blood Pressure Disorder Active Acetaminophen (TYLENOL PO) Active melatonin 3 MG tabletIndicatio ns:Insomnia Take 2 (two) tablets by mouth at bedtime Reasons: Trouble Sleeping 4 Active polyethylene glycol 3350 (Miralax) 17 g packet Take 17 (seventeen) g by mouth once daily as needed for Constipation 4 Active Additional Information Patient not taking.Reported on 11/24/2023 apixaban (Eliquis) 5 MG tablet Take 1 (one) tablet by mouth 2 times daily 60 tablet 3 4 Active triamterene-hyd roCHLOROthiazid e (Dyazide) 37.5-25 MG capsule Take 1 (one) [...] (01/30/2020): Added automatically from request for surgery [id number] 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 Depressive disorder 01/30/2014 Diverticulitis of colon 01/30/2014 Mid back pain 07/30/2013 Herniation of intervertebral disc of cervical re gion 06/10/2013 Arthritis 06/05/2013 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 Arthralgia of shoulder 09/02/2011 Primary hypertension 03/16/2010 Degeneration of cervical intervertebral disc 05/2010 Cervical spondylosis without myelopathy 03/16/19 11 Encounters Date Type Department Care Team Description 10/24/2024 Orders Only [facility] - Neurology [address] [facility], [place] [address] Jazz Torres PA-C Aneurysm 07/30/2024 Lab Requisition [facility] - DermPath Lab [address] [facility] [place] [address] Vincent Hilaria Davenport, DO from Last 3 [...] and heating? Not hard at all 09/16/2023 [facility] - Occupational Stress Questionnaire Answer Date Recorded [...] place to sleep or slept in a prison (including now)? No 09/16/2023 Comments No Sex and Gender Information Value Date Recorded Sex Assigned at Not on file Legal Sex Female 6:18 AM FILENET ARCHITECT Gender Identity Not on file Sexual Orientation [...] 9:45 AM CDT Height 156.2 cm (5' 1.5) 11/24/2023 9:45 AM CDT Body Mass Index [...] 75+ series) 12/08/2022 COVID-19 VACCINE (3 - season) 2023 05/21/2020, 04/23/2020 DEPRESSION SCREENING 03/14/2024 MEDICARE AWV CALENDAR YEAR 2024 INFLUENZA VACCINE (#1) 2024 12/12/2020, 2019 SCREENING FOR DIABETES 09/22/2026 , 09/23/2023, 09/23/2023, [...] complete this topic MENINGOCOCCAL (Group B) VACCINE SHARED DECISION-MAKING Aged Out No longer eligible based on patient's age to complete this topic MENINGOCOCCAL GROUPS A/C/Y/W VACCINE Aged Out No longer eligible based on patient's age to complete this topic Medical Devices Implanted Type Area Steam Conditioning Operator Device Identifier Shelf Expiration Date Model / Serial / Lot Cmpnt Ptlr S 31x9mm Tritanium Strl Lf Implanted:Qty: 1 on 02/05/2022 by Jason Vargas DO at [facility] Right: Knee [employer] 01/08/2027 [id number] / / [id number] Bsplt Tib Trthlm 4 Kn Tritanium Implanted:Qty: 1 on 02/05/2022 by Jason Vargas DO at [facility] Right: Knee [employer] 2026 [id number] / / [id number] Cmpnt Fem Kn Rt 3 Crcte Rtn Bead Trthln Implanted:Qty: 1 on 02/05/2022 by Jason Vargas DO at [facility] Right: Knee [employer] 11/21/2026 [id number] / / [id number] Ins Tib 4 9mm Kn X3 Crcte Sub Trthln Implanted:Qty: 1 on 02/05/2022 by Jason Vargas DO at [facility] Right: Knee [employer] 12/02/2026 [id number] -[id number] / / [id number] Procedures Procedure Name Priority Date/Time Associated Diagnosis Comments DERMATOPATHOLOGY Routine 07/30/2024 10:1 9 AM CDT GLUCOSE - POINT OF CARE Routine 09/23/19 12:31 PM CDT from Last 3 Months or Most Recently Relevant to Health Maintenance Results * DERMATOPATHOLOGY (07/30/2024 10:19 AM CDT) Case Report Dermatopathology Report Case: [id number] Authorizing Provider: Hilaria Kaur DO Collected: 07/30/2024 10:19 AM Ordering Location: [facility] - Received: 07/30/2024 04:45 PM DermPath Lab Pathologist: Jenny Flores MD Specimen: Skin, left anterior lower exteremity 4:34 PM CDT DERMATOPATHOLOGY LABORATORY Final Diagnosis Specimen A. 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 The specimen consists of a shave biopsy measuring 7x6x1 mm. Jar 0. 4:34 PM CDT DERMATOPATHOLOGY LABORATORY Microscopic Description Specimen A. SKIN, left anterior lower exteremity: The epidermis shows parakeratosis, full thickness disorderly maturation of keratinocytes, mitoses at different levels, and dyskeratotic cells. Additional deeper sections were obtained and reviewed. 4:34 PM CDT DERMATOPATHOLOGY LABORATORY Disclaimer An external and internal positive and negative controls are appropriate for the histochemical, immunohistochemical and immunofluorescence stain(s) in this case (if any), except where stated explicitly. The performance characteristics of the stain(s) cited in this report were developed and its performance characteristic determined by the Dermatopathology Laboratory at [facility], directed by Dr. Nica Diaz. These tests need not be, and therefore are not, approved by the [place] Food and Drug Administration. The tests are used for clinical purposes. Billing Codes Specimen Charges Stain Charges 55620 1 5 4:34 PM CDT DERMATOPATHOLOGY LABORATORY Embedded Images 5 4:34 PM CDT DERMATOPATHOLOGY LABORATORY Pathology/Cytolo gy TISSUE SPECIMEN FROM SKIN / Unknown 07/30/2024 10:19 AM CDT 07/30/2024 4:45 PM CDT us Hilaria Kaur DO LAB - PATHOLOGY/CYTOLOGY ORDERABLES Final Result DERMATOPATHOLOGY LABORATORY [facility] - Department of Dermatology [facility] [address] 3rd [place] [address], [place] [phone] * (ABNORMAL) GLUCOSE - POINT OF CARE (09/23/2023 12:31 PM CDT) Glucose WB/POC 225(H) 70 - 115 mg/dL 09/23/2023 12:36 PM CDT [facility] Specimen Type Cap Fingerstick 2023 12:36 PM CDT [facility] Blood BLOOD SPECIMEN / Unknown 09/23/2023 12:31 PM CDT 09/23/2023 12:36 PM CDT us Val Gross MD LAB - POINT OF CARE ORDERABLES Final Result [facility] [address] [place] [address], [place] [phone] from Last 3 Months or Most Recently Relevant to Health Maintenance Insurance [facility] MANAGED MEDICARE ADV Member Subscriber Plan / Payer (Ef fective for All Dates) Name:Kamran Lau Maru Member ID:Not on file Relation to Subscriber:Not on file Name:JO ANN LAUILA Subscriber ID:Not on file Address: [address] [id number] Payer ID:Not on file Group ID:Not on file Type:Self Pay Address: [facility] MANAGED MEDICARE ADV SELF PAY NO INSURANCE Member Subscriber Plan / Payer (Ef fective for All Dates) Name:Kamran Lau Member ID:Not on file Relation to Subscriber:Not on file Name:JO ANN LAUILA Subscriber ID:Not on file Address: [address] [place] [address] Payer ID:Not on file Group ID:Not on file Type:Self Pay Address: [facility] MANAGED MEDICARE ADV SELF PAY NO INSURANCE Member Subscriber Plan / Payer (Ef fective for All Dates) Name:Kamran Lau Member ID:Not on file Relation to Subscriber:Not on file Name:LAUJO ANNKAMRAN Subscriber ID:Not on file Address: [address] [place] [address] Payer ID:Not on file Group ID:Not on file Type:Self Pay Address: [facility] MANAGED MEDICARE ADV Advance Directives Documents on File Type Date Recorded Patient Obgyn Hospitalist Physician Expl anation Adv Directive/Living Will/POA 02/09/2022 6:44 PM * Full Code (Latest Code Status on File) Date Activated Date Inactivated Comments 09/15/2023 2:57 PM 09/23/2023 5:54 PM * Full Code Date Activated Date Inactivated Comments 02/05/2022 12:13 PM 02/06/2022 3:14 PM Care Teams Cdl B Driver Relationship Specialty Start Date End Date Zhanna Cordero MD [address] [place] [address] PCP - General 12/01/21 Jung Regalado MD [address] [place] [address] Family Medicine 03/16/10
--- OUTSIDE RECORDS SUMMARY | 2024-10-29 12:32 | XMS_ITS | Encounter Summary ---
Author Organization [facility] Address [address] [facility] [place] [address] Care Team Providers Care Turner Off Name Role Phone Jung Regalado MD Unavailable [phone] Zhanna Cordero MD Primary Care Provider [phone] Encounter Details Date Type Department Care Team (Late st Contact Info) Description 02/22/2024 Lab Requisition [facility] - DermPath Lab [address] [facility] [place] [address] Hilaria Kaur DO [address] [facility] 3 [place] [address] Social History Tobacco Use Types Packs/Day Years [...] and heating? Not hard at all 09/16/2023 [place] [facility] - Occupational Stress [...] health care facility (including now)? No 09/16/2023 Comments No Sex and Gender Information Value Date Recorded Sex Assigned at Not on file Legal Sex Female 6:18 AM INFORMATION SERVICES CONSULTANT Gender Identity Not on file Sexual Orientation [...] Diagnosis Comments DERMATOPATHOLOGY Routine 02/22/2024 8:43 AM INFORMATION SERVICES CONSULTANT documented in this encounter Results * DERMATOPATHOLOGY (02/22/2024 8:43 AM INFORMATION SERVICES CONSULTANT) Case Report Dermatopathology Report Case: [id number] Authorizing Provider: Hilaria Kaur DO Collected: 02/22/2024 08:43 AM Ordering Location: [facility] - Received: 02/22/2024 03:46 PM DermPath Lab Pathologist: Antonieta Zazueta MD Specimen: Skin, right upper arm 12:06 PM [facility] DERMATOPATHOLOGY LABORATORY Final Diagnosis Specimen A. SKIN, right upper arm: DERMAL SCAR RESIDUAL SQUAMOUS CELL CARCINOMA NOT IDENTIFIED (L90.5) 12:06 PM [facility] DERMATOPATHOLOGY LABORATORY at 1206 INFORMATION SERVICES CONSULTANT Clinical History Bx proven, R/O SCC 12:06 PM [facility] DERMATOPATHOLOGY LABORATORY Gross Description Specimen A: Received is one formalin filled container labeled with the patient's name and designated right upper arm. The specimen consists of a non-oriented ellipse of skin measuring 65h34e9 mm. The epidermal surface is unremarkable. The margin is inked green. The 12 o'clock and 6 o'clock tips are submitted in cassette 1. The remainder of the ellipse is serially sectioned and submitted in cassette 2. Jar 0. 4 12:06 PM [facility] DERMATOPATHOLOGY LABORATORY Microscopic Description Specimen A. SKIN, right upper arm: There are fibroblasts and collagen bundles oriented parallel to the skin surface. There are elongated blood vessels, some of which are oriented perpendicular to the skin surface. No residual squamous cell carcinoma is identified. 12:06 PM [facility] DERMATOPATHOLOGY LABORATORY Disclaimer An external and internal positive and negative controls are appropriate for the histochemical, immunohistochemical and immunofluorescence stain(s) in this case (if any), except where stated explicitly. The performance characteristics of the stain(s) cited in this report were developed and its performance characteristic determined by the Dermatopathology Laboratory at [facility], directed by Dr. Nica Diaz. These tests need not be, and therefore are not, approved by the [place] Food and Drug Administration. The tests are used for clinical purposes. Billing Codes Specimen Charges Stain Charges 98105 1 4 12:06 PM INFORMATION SERVICES CONSULTANT DERMATOPATHOLOGY LABORATORY Embedded Images 4 12:06 PM [facility] DERMATOPATHOLOGY LABORATORY Pathology/Cytolo gy TISSUE SPECIMEN FROM SKIN / Unknown 02/22/2024 8:43 AM INFORMATION SERVICES CONSULTANT 02/22/2024 3:46 PM INFORMATION SERVICES CONSULTANT us Hilaria Kaur DO LAB - PATHOLOGY/CYTOLOGY ORDERABLES Final Result DERMATOPATHOLOGY LABORATORY [facility] - Department of Dermatology [facility] Medicine [address] [place] [address], [address] [phone] documented in this encounter Visit Diagnoses Not on filedocumented in this encounter Care Teams Turner Off Relationship Specialty Start Date End Date Zhanna Cordero MD [address] [place] [address] PCP - General 12/01/21 Jung Regalado MD [address] [place] [address] Family Medicine 03/16/10 documented as of this encounter
--- OUTSIDE RECORDS SUMMARY | 2024-10-29 12:32 | XMS_ITS | Encounter Summary ---
Author Organization [facility] Health Address [address] [facility] [place] [address] Care Team Providers Care Auto Suspension And Steering Mechanic Name Role Phone Jung Regalado MD Unavailable [phone] Zhanna Cordero MD Primary Care Provider [phone] Encounter Details Date Type Department Care Team (Late st Contact Info) Description 07/30/2024 Lab Requisition [facility] - DermPath Lab [address] [facility] [place] [address] Hilaria Kaur DO [address] [facility] 3 [place] [address] Social History Tobacco Use Types Packs/Day Years [...] and heating? Not hard at all 09/16/2023 [place] [facility] - Occupational Stress [...] place to sleep or slept in a care home (including now)? 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 - Received: 07/30/2024 04:45 PM [...] purposes. Billing Codes Specimen Charges Stain Charges 10287 1 5 4:34 PM CDT DERMATOPATHOLOGY LABORATORY Embedded Images 5 4:34 PM CDT DERMATOPATHOLOGY LABORATORY Pathology/Cytolo gy TISSUE SPECIMEN FROM SKIN / Unknown 07/30/2024 10:19 AM CDT 07/30/2024 4:45 PM CDT us Hilaria Kaur DO LAB - PATHOLOGY/CYTOLOGY ORDERABLES Final Result Performing Organization Address City/State/RUST Co de Phone Number DERMATOPATHOLOGY LABORATORY [facility] - Department of Dermatology [facility] Medicine [address] [place] [address], [address] [phone] documented in this encounter Visit Diagnoses Not on filedocumented in this encounter Care Teams Auto Suspension And Steering Mechanic Relationship Specialty Start Date End Date Zhanna Cordero MD [address] [place] [address] PCP - General 12/01/21 Jung Regalado MD [address] [place] [address] Family Medicine 03/16/10 documented as of this encounter
--- OUTSIDE RECORDS SUMMARY | 2024-10-29 12:32 | XMS_ITS | Encounter Summary ---
Author Organization [facility] Address [address] [place] [address] Care Team Providers Care Finger Lift Operator Name Role Phone Jung Regalado MD Primary Care Provider [phone] Encounter Details Date Type Department Care Team (Latest Contact Info) Description 09/23/2004 Outpatient Historical [facility] MICHELINE Gonzalez, Maged Pizano MD NO ADDRESS ON FILE SCREENING MAMM-MAILG NEOPL-OTHER (Primary Dx) Social History Tobacco Use Types Packs/Day Years Used Date Smoking Tobacco: Never Assessed Comments Unknown Sex and Gender Information Value Date Recorded Sex Assigned at Not on file Legal Sex Female 4:20 AM PRIVATE INVESTIGATOR Gender Identity Not on file Sexual Orientation Not on file documented as of this encounter Plan of Treatment Not on file documented as of this encounter Visit Diagnoses Diagnosis Other screening mammogram- Primary documented in this encounter Care Teams Finger Lift Operator Relationship Specialty Start Date End Date Jung Regalado MD [address] [place] [address] PCP - General 01/20/09 documented as of this encounter
--- OUTSIDE RECORDS SUMMARY | 2024-10-29 12:32 | XMS_ITS | Encounter Summary ---
Author Organization [facility] Address [address] [facility] [place] [address] Care Team Providers Care Family Law Legal Assistant Name Role Phone Jung Regalado MD Unavailable [phone] Jung Regalado MD Primary Care Provider [phone] Zhanna Cordero MD Primary Care Provider [phone] Encounter Details Date Type Department Care Team (Late st Contact Info) Description 06/07/2018 Lab Requisition [facility] Care DermPath Lab [address], [place] [address] Abiola Stoddard MD [address] [facility] 3 [place] [address] Social History Tobacco Use Types Packs/Day Years Used Date Smoking Tobacco: Never Smokeless Tobacco: Never Alcohol Use Standard Drinks/Week Comments Yes 0 (1 standard drink = 0.6 oz pur e alcohol) Comments No Sex and Gender Information Value Date Recorded Sex Assigned at Not on file Legal Sex Female 6:18 AM RAILROAD TRACK MECHANIC Gender Identity Not on file Sexual Orientation Not on file documented as of this encounter Plan of Treatment Not on file documented as of this encounter Procedures Procedure Name Priority Date/Time Associated Diagnosis Comments DERMATOPATHOLOGY Routine 06/06/2018 12:0 0 AM CDT documented in this encounter Results * DERMATOPATHOLOGY (06/06/2018 12:00 AM CDT) Case Report Dermatopathology Report Case: [id number] Authorizing Provider: Abiola Stoddard MD Collected: 06/06/2018 12:00 AM Pathologist: Hailee Su MD Received: 06/07/2018 07:02 AM Specimen: Skin, right post thigh 12:25 PM CDT DERMATOPATHOLOGY LABORATORY Final Diagnosis Specimen A. SKIN, right post thigh: DERMAL SCAR RESIDUAL MELANOCYTIC PROLIFERATION NOT IDENTIFIED (L90.5) 12:25 PM CDT DERMATOPATHOLOGY LABORATORY at 1225 CDT Clinical History Compound homero prolif, biopsy proven. Check margins 12:25 PM CDT DERMATOPATHOLOGY LABORATORY Gross Description Specimen A: Received is one formalin filled container labeled with the patient's name and designated right post thigh. The specimen consists of a non-oriented ellipse of skin measuring 40z42x2 mm. The epidermal surface is unremarkable. The margin is inked green. The 12 o'clock and 6 o'clock tips are submitted in cassette 1. The remainder of the ellipse is serially sectioned and submitted in cassette 2-4. There are pieces of additional tissue measuring 12x4x2,12x3x3,10x3x 3, and 7x4x2 submitted in cassette 5. Jar 0. 12:25 PM CDT DERMATOPATHOLOGY LABORATORY Microscopic Description Specimen A. SKIN, right post thigh: There are fibroblasts and collagen bundles oriented parallel to the skin surface. There are elongated blood vessels, some of which are oriented perpendicular to the skin surface. No residual melanocytic proliferation is identified. 12:25 PM CDT DERMATOPATHOLOGY LABORATORY Disclaimer An external and internal positive and negative controls are appropriate for the histochemical, immunohistochemical and immunofluorescence stain(s) in this case (if any), except where stated explicitly. The performance characteristics of the stain(s) cited in this report were developed and its performance characteristic determined by the Dermatopathology Laboratory at [facility], directed by Dr. Nica Diaz. These tests need not be, and therefore are not, approved by the [place] Food and Drug Administration. The tests are used for clinical purposes. Billing Codes Specimen Charges Stain Charges 17297 1 03/28/201 9 12:25 PM CDT DERMATOPATHOLOGY LABORATORY Embedded Images 9 12:25 PM CDT DERMATOPATHOLOGY LABORATORY Pathology/Cytolog y TISSUE SPECIMEN FROM SKIN / Unknown 06/06/2018 06/07/2018 7:02 AM CDT Abiola Stoddard MD LAB - PATHOLOGY/CYTOLOGY OR DERABLES Final Result DERMATOPATHOLOGY LABORATORY [facility] - Department of Dermatology [address] [place] [address], 5th Floor Lab [address] [phone] documented in this encounter Visit Diagnoses Not on filedocumented in this encounter Care Teams Family Law Legal Assistant Relationship Specialty Start Date End Date Jung Regalado MD [address] [place] [address] PCP - General 07/12/17 11/30/21 Zhanna Cordero MD [address] [place] [address] PCP - General 12/01/21 Jung Regalado MD [address] [place] [address] Family Medicine 03/16/10 documented as of this encounter
--- OUTSIDE RECORDS SUMMARY | 2024-10-29 12:32 | XMS_ITS | Encounter Summary ---
Author Organization [employer] Address [address] [place] [address] Care Team Providers Care Pinion Sorter Name Role Phone Jung Regalado MD Primary Care Provider + [phone] Encounter Details Date Type Department Care Team (Late st Contact Info) Description 07/20/2004 Outpatient Historical [facility] ([facility]t Cardiology-[facility]) [address] [place] [address] Kaleb Raphael MD [address] [place] [address] Social History Tobacco Use Types Packs/Day Years Used Date Smoking Tobacco: Never Assessed Comments Unknown Sex and Gender Information Value Date Recorded Sex Assigned at Not on file Legal Sex Female 4:20 AM MAP CLERK Gender Identity Not on file Sexual Orientation Not on file documented as of this encounter Plan of Treatment Not on file documented as of this encounter Visit Diagnoses Not on filedocumented in this encounter Care Teams Pinion Sorter Relationship Specialty Start Date End Date Jung Regalado MD [address] [place] [address] PCP - General 01/20/09 documented as of this encounter
--- OUTSIDE RECORDS SUMMARY | 2024-10-29 12:32 | XMS_ITS | Encounter Summary ---
Author Organization [facility] Facility Care Team Providers Care Modular Home Crew Member Name Role Phone Jung Regalado MD Primary Care Provider [phone] Zhanna Cordero MD Primary Care Provider [phone] Encounter Details Date Type Department Care Team (Latest Contact Info) Description 02/08/2017 Orders Only [facility] CLINCONV ProviderConstance MD [address] [place], [place] [id number] Social History Tobacco Use Types Packs/Day Years Used Date Smoking Tobacco: Never Comments Unknown Sex and Gender Information Value Date Recorded Sex Assigned at Not on file Legal Sex Female 11:28 AM GOLD BLOWER Gender Identity Female 06/30/2022 6:11 AM CDT Sexual Orientation Straight 06/30/2022 6: 11 AM CDT documented as of this encounter Plan of Treatment Not on file documented as of this encounter Procedures Procedure Name Priority Date/Time Associated Diagnosis Comments PROCEDURE - RESULT 02/10/2017 12 :00 AM GOLD BLOWER PROCEDURE - RESULT 02/08/2017 12 :00 AM GOLD BLOWER documented in this encounter Results * PROCEDURE - RESULT (02/10/2017 12:00 AM GOLD BLOWER) Narrative 02/10/2017 12:00 AM GOLD BLOWER Ordered by an unspecified provider. Historical Provider Final Res ult * PROCEDURE - RESULT (02/08/2017 12:00 AM GOLD BLOWER) Narrative 02/08/2017 12:00 AM GOLD BLOWER Ordered by an unspecified provider. us Historical Provider Final Res ult documented in this encounter Visit Diagnoses Not on filedocumented in this encounter Care Teams Modular Home Crew Member Relationship Specialty Start Date End Date Jung Regalado MD [address] [place] [address] PCP - General 10/05/16 05/21/20 Zhanna Cordero MD [address] [place] [address] PCP - General Family Medicine 05/22/20 documented as of this encounter
--- NOTE | 2024-10-29 12:45 | ED.ARRPALP ---
HPI - Arrhythmia/Palpitations General Chief Complaint: Arrhythmia/Palpitations <Antonieta Mar PA-C - Last Filed: 10/30/24 09:24> Stated Complaint: reaction to prednisone?? <Antonieta Mar PA-C - Last Filed: 10/30/24 09:24> Time Seen by Provider: 10/29/24 12:45 <Antonieta Mar PA-C - Last Filed: 10/30/24 09:24> Focused HPI: This is a 78 year old female that presents to the ER for possible adverse reaction to prednisone. Reports she started taking it Tuesday for a possible gout flare. She has had chest pain, funny feelings in her throat. Reports some dizziness. Reports palpitations. Feels like she could pass out. Denies shortness of breath. GENERAL: Well-appearing, well-nourished, and in no acute distress. HEAD: Normocephalic, atraumatic. CHEST: Clear to auscultation. ?No respiratory distress. HEART: Irregularly irregular NEURO: ?Alert and oriented x3. Patient screened in triage and initial orders placed.? ?Additional care and disposition to be based upon?diagnostic testing and treatment. <Antonieta Mar PA-C - Last Filed: 10/30/24 09:24> History of Present Illness HPI narrative: Agree with MSE <Harman Hameed MD - Last Filed: 10/29/24 21:25> Related Data Home Medications: Home Medications ?Medication ?Instructions ?Recorded ?Confirmed ?Last Taken ?Type diltiazem HCl 240 mg 240 mg PO DAILY 12/26/19 10/26/24 11/28/19 History capsule,extended release 24 hr (Cartia XT) triamterene 37.5 1 cap PO DAILY 06/04/21 10/26/24 Unknown History mg-hydrochlorothiazide 25 mg capsule valacyclovir 1 gram tablet 2,000 mg PO Q12H PRN other 04/04/23 10/26/24 Unknown History (Valtrex) <Antonieta Mar PA-C - Last Filed: 10/30/24 09:24> Allergies/Adverse Reactions: Allergies Allergy/AdvReac Type Severity Reaction Status Date / Time prednisone Allergy Severe Anaphylaxis Verified 10/29/24 10:33 <Antonieta Mar PA-C - Last Filed: 10/30/24 09:24> Review of Systems Review of Systems: Gen.: Denies fevers or chills Eyes: Denies eye pain or visual change ENT: Denies congestion Respiratory: Denies shortness of breath or cough CV: Denies chest pain or palpitations GI: Denies abdominal pain nausea, emesis or diarrhea denies burning, urgency, frequency or hematuria Musculoskeletal: Denies back pain or muscle pain Neuro: Denies numbness, tingling, focal weakness Skin: Denies rash Except as documented, all other systems reviewed and negative <Harman Hameed MD - Last Filed: 10/29/24 21:25> [facility] Past Medical History Medical History: Medical History Great toe pain Hx of adenomatous colonic polyps Chronic vomiting Atypical chest pain Odynophagia Chronic renal insufficiency, stage III (moderate) Vitamin D deficiency Vulvodynia Screening cholesterol level Elevated TSH Knee pain, bilateral Low back pain Fatigue Arthralgia Anxiety Hypertension <Antonieta Mar PA-C - Last Filed: 10/30/24 09:24> Surgical History Surgical History: Surgical History Hx of laparoscopic gastric banding History of arthroscopic knee surgery (~2009) right knee - Dr. Kapoor History of hysterectomy (~2002) [facility] History of shoulder replacement (~2009) left shoulder - Dr. Chelsea Coreas History of arthroscopic knee surgery (~2017) left knee - Dr. Guillaume [facility] History of ankle surgery (~2018) left ankle - Dr. Aguillon - [facility] <Antonieta Mar PA-C - Last Filed: 10/30/24 09:24> Family History Family History: Family History Father Family history of arthritis Carcinoma of colon Mother Family history of malignant neoplasm of bone Family history of malignant neoplasm of breast in first degree relative Other Family history of malignant neoplasm <Antonieta Mar PA-C - Last Filed: 10/30/24 09:24> Social History Social History: Social History Smoking status: Never smoker Second hand tobacco smoke exposure: No Alcohol intake: current Alcohol use details: social Substance use: never Substance use type: does not use Lack of Transportation: No Lack of Food: Never True Current Housing: I Have Housing Concerned About Future Housing: No Difficulty Paying Gas/Electric Bills: No Difficulty Paying for Meds: No Currently Unemployed: No Education: High School Diploma/GED Difficulty w/ Childcare or Family Care: No Living arrangements: with family Gender identity (if verbalized by the patient): Female Sexual Orientation (if Verbalized by the Patient): Straight or Heterosexual Spiritual care concerns: No Agree to blood products: Yes <Antonieta Mar PA-C - Last Filed: 10/30/24 09:24> Exam Narrative: APPEARANCE: No acute distress, nontoxic, resting in bed EYES: EOMI HEENT: Normocephalic, atraumatic, OMM. Posterior oropharynx clear RESPIRATORY: No respiratory distress Clear to auscultation bilaterally with no rhonchi wheezing or rales. CARDIOVASCULAR: Irregularly irregular without murmurs rubs or gallops. ABDOMINAL: Soft, nontender, nondistended, no rebound or guarding MUSCULOSKELETAl: Moves all extremities. No clubbing, cyanosis or edema. NEURO: Awake and alert. Following commands, speech normal, no focal deficits. NIHSS 0. 5/5 strength to all extremities SKIN:: Warm, dry. No rashes lesions or abrasions PSYCHIATRIC: Normal affect/mood, <Harman Hameed MD - Last Filed: 10/29/24 21:25> Course Vital Signs Vital signs: Vital Signs Temperature 98.0 F 10/29/24 11:28 Pulse Rate 93 10/29/24 11:28 Respiratory Rate 20 10/29/24 11:28 Blood Pressure 164/101 H 10/29/24 11:28 Pulse Oximetry 96 10/29/24 11:28 Oxygen Delivery Room Air 10/29/24 11:28 Temperature 98.0 F 10/29/24 11:28 Pulse Rate 82 10/29/24 15:10 Respiratory Rate 16 10/29/24 15:10 Blood Pressure 138/86 10/29/24 15:10 Pulse Oximetry 99 10/29/24 15:10 Oxygen Delivery Room Air 10/29/24 12:59 <Antonieta Mar PA-C - Last Filed: 10/30/24 09:24> Vital Signs Temperature 98.0 F 10/29/24 11:28 Pulse Rate 93 10/29/24 11:28 Respiratory Rate 20 10/29/24 11:28 Blood Pressure 164/101 H 10/29/24 11:28 Pulse Oximetry 96 10/29/24 11:28 Oxygen Delivery Room Air 10/29/24 11:28 Temperature 98.0 F 10/29/24 11:28 Pulse Rate 82 10/29/24 15:10 Respiratory Rate 16 10/29/24 15:10 Blood Pressure 138/86 10/29/24 15:10 Pulse Oximetry 99 10/29/24 15:10 Oxygen Delivery Room Air 10/29/24 12:59 <Harman Hameed MD - Last Filed: 10/29/24 21:25> MDM - Arrhythmia/Palpitations MDM Narrative Medical decision making narrative: 78-year-old female who presents the ED for weakness, dizziness, chest pain. Her and lungs clear. Abdomen is soft and nontender. CBC and CMP were without significant abnormalities. Patient had difficulty urinating, reportedly due to anxiety. PVR showed 350 so she was straight cathed. UA was clear. EKG showed no acute abnormalities. Troponin negative. Patient's symptoms were over last few days so repeat troponin was not necessary. Chest x-ray does show new acute process. Patient was able ambulate without assistance. Her symptoms were improved at this time. Very low suspicion for any cardiac abnormalities. Patient may be having a an adverse reaction to the prednisone. She was advised to stop taking this if she was concerned about it but to follow up with her PCP regarding her continued gout treatment. Patient was agreeable this plan. Given strict return precautions. <Harman Hameed MD - Last Filed: 10/29/24 21:25> Differential Diagnosis Differential diagnosis: Likely other (UTI, medication reaction, afib, electrolyte abnormality, ACS) <Harman Hameed MD - Last Filed: 10/29/24 21:25> Lab Data Attestation: I reviewed the patient's lab results. <Harman Hameed MD - Last Filed: 10/29/24 21:25> Result diagrams: 10/29/24 11:43 10/29/24 11:43 <Antonieta Mar PA-C - Last Filed: 10/30/24 09:24> Labs: Lab Results 10/29/24 10/29/24 Range/Units 11:43 14:21 WBC 9.8 (4.5-10.0) K/mm3 RBC 4.73 (4.2-5.4) M/mm3 Hgb 15.8 H (12.0-15.0) g/dL Hct 45.0 (37.0-47.0) % MCV 95.1 (80-100) fl MCH 33.4 (26-34) pg MCHC 35.1 (32-36) g/dl RDW 13.6 (11.5-14.5) % Plt Count 275 (150-375) k/mm3 MPV 8.9 (7.4-10.4) fl Immature Gran % (Auto) 0.4 (0-0.5) % Neut % (Auto) 63.3 (45.5-73.1) % Lymph % (Auto) 25.1 (18.3-44.2) % [place] % (Auto) 11.0 H (2.6-8.5) % Eos % (Auto) 0.1 (0-4.4) % Baso % (Auto) 0.1 L (0.2-1.2) % Lymph # (Auto) 2.47 (0.9-3.2) K/mm3 [place] # (Auto) 1.1 H (0.1-0.6) K/mm3 Eos # (Auto) 0.0 (0-0.3) K/mm3 Baso # (Auto) 0.0 (0.0-0.1) K/mm3 Abs Immat Gran (auto) 0.04 H (0.00-0.031) K/mm3 Absolute Neuts (auto) 6.2 (1.3-6.7) K/mm3 Absolute Nucleated RBC 0.000 (0.0-0.012) K/mm3 Nucleated RBC % 0.0 (0.0-0.2) % PT 16.0 H (11.1-14.7) Seconds INR 1.3 APTT 28.3 (22.3-36.8) Seconds Sodium 137 (137-145) mmol/L Potassium 3.4 (3.4-5.0) mmol/L Chloride 103 (98-107) mmol/L Carbon Dioxide 26 (22-30) mmol/L Anion Gap 8 (4-12) mmol/L BUN 23 H (7-17) mg/dL Creatinine 0.96 (0.7-1.0) mg/dL Estim Creat Clear Calc 42 ml/min Estimated GFR 57 L (59 - ) Glucose 108 (65-110) mg/dL Calcium 9.7 (8.4-10.2) mg/dL Total Bilirubin 0.7 (0.2-1.3) mg/dL AST 33 (14-36) U/L ALT 27 (6-35) U/L Alkaline Phosphatase 54 (38-126) U/L Troponin I < 0.012 Cancelled (0.000-0.034) ng/mL Total Protein 7.4 (6.3-8.2) g/dL Albumin 4.2 (3.5-5.1) g/dL Lipase 33 (23-300) U/L Urine Color Yellow (Yellow) Urine Appearance Clear (Clear) Urine pH 6.5 (5.0-9.0) Ur Specific [place] 1.006 (1.001-1.035) Urine Protein Negative (Negative) mg/dL Urine Glucose (UA) Negative (Negative) mg/dL Urine Ketones Negative (Negative) mg/dL Ur Blood (Man) Negative (Negative) Urine Nitrate Negative (Negative) Urine Bilirubin Negative (Negative) Urine Urobilinogen 0.2 (<2.0) mg/dL Leukocyte Esterase Rfl Negative (Negative) TONE/UL <Antonieta Mar PA-C - Last Filed: 10/30/24 09:24> Lab Results 10/29/24 10/29/24 Range/Units 11:43 14:21 WBC 9.8 (4.5-10.0) K/mm3 RBC 4.73 (4.2-5.4) M/mm3 Hgb 15.8 H (12.0-15.0) g/dL Hct 45.0 (37.0-47.0) % MCV 95.1 (80-100) fl MCH 33.4 (26-34) pg MCHC 35.1 (32-36) g/dl RDW 13.6 (11.5-14.5) % Plt Count 275 (150-375) k/mm3 MPV 8.9 (7.4-10.4) fl Immature Gran % (Auto) 0.4 (0-0.5) % Neut % (Auto) 63.3 (45.5-73.1) % Lymph % (Auto) 25.1 (18.3-44.2) % [place] % (Auto) 11.0 H (2.6-8.5) % Eos % (Auto) 0.1 (0-4.4) % Baso % (Auto) 0.1 L (0.2-1.2) % Lymph # (Auto) 2.47 (0.9-3.2) K/mm3 [place] # (Auto) 1.1 H (0.1-0.6) K/mm3 Eos # (Auto) 0.0 (0-0.3) K/mm3 Baso # (Auto) 0.0 (0.0-0.1) K/mm3 Abs Immat Gran (auto) 0.04 H (0.00-0.031) K/mm3 Absolute Neuts (auto) 6.2 (1.3-6.7) K/mm3 Absolute Nucleated RBC 0.000 (0.0-0.012) K/mm3 Nucleated RBC % 0.0 (0.0-0.2) % PT 16.0 H (11.1-14.7) Seconds INR 1.3 APTT 28.3 (22.3-36.8) Seconds Sodium 137 (137-145) mmol/L Potassium 3.4 (3.4-5.0) mmol/L Chloride 103 (98-107) mmol/L Carbon Dioxide 26 (22-30) mmol/L Anion Gap 8 (4-12) mmol/L BUN 23 H (7-17) mg/dL Creatinine 0.96 (0.7-1.0) mg/dL Estim Creat Clear Calc 42 ml/min Estimated GFR 57 L (59 - ) Glucose 108 (65-110) mg/dL Calcium 9.7 (8.4-10.2) mg/dL Total Bilirubin 0.7 (0.2-1.3) mg/dL AST 33 (14-36) U/L ALT 27 (6-35) U/L Alkaline Phosphatase 54 (38-126) U/L Troponin I < 0.012 Cancelled (0.000-0.034) ng/mL Total Protein 7.4 (6.3-8.2) g/dL Albumin 4.2 (3.5-5.1) g/dL Lipase 33 (23-300) U/L Urine Color Yellow (Yellow) Urine Appearance Clear (Clear) Urine pH 6.5 (5.0-9.0) Ur Specific [place] 1.006 (1.001-1.035) Urine Protein Negative (Negative) mg/dL Urine Glucose (UA) Negative (Negative) mg/dL Urine Ketones Negative (Negative) mg/dL Ur Blood (Man) Negative (Negative) Urine Nitrate Negative (Negative) Urine Bilirubin Negative (Negative) Urine Urobilinogen 0.2 (<2.0) mg/dL Leukocyte Esterase Rfl Negative (Negative) TONE/UL <Harman Hameed MD - Last Filed: 10/29/24 21:25> Imaging Data Radiologist's impression: Impressions Chest X-Ray 10/29/24 13:15 IMPRESSION: No acute process. <Harman Hameed MD - Last Filed: 10/29/24 21:25> ECG Data EKG #1: ECG completion date: 10/29/24 <Harman Hameed MD - Last Filed: 10/29/24 21:25> ECG completion time: 11:26 <Harman Hameed MD - Last Filed: 10/29/24 21:25> Pacemaker model: His AFib rate of 95, normal axis, no acute ST or T-wave changes <Harman Hameed MD - Last Filed: 10/29/24 21:25> EKG #2: ECG completion date: 10/29/24 <Harman Hameed MD - Last Filed: 10/29/24 21:25> ECG completion time: 14:27 <Harman Hameed MD - Last Filed: 10/29/24 21:25> Interpretation: AFib rate of 68, normal axis, no acute ST or T-wave changes. No change compared to earlier today <Harman Hameed MD - Last Filed: 10/29/24 21:25> Critical Care Time Critical Care Time Critical Care Time: No <Antonieta Mar PA-C - Last Filed: 10/30/24 09:24> Discharge Plan Discharge Clinical Impression: Weakness Medication adverse effect Qualifiers: Encounter type: initial encounter Qualified Code(s): T50.905A - Adverse effect of unspecified drugs, medicaments and biological substances, initial encounter A-fib Qualifiers: Atrial fibrillation type: paroxysmal Qualified Code(s): I48.0 - Paroxysmal atrial fibrillation <Antonieta Mar PA-C - Last Filed: 10/30/24 09:24> Patient Disposition: Home <ESAU Tyler Last Filed: 10/30/24 09:24> Condition: Stable <ESAU Tyler Last Filed: 10/30/24 09:24> Instructions: Antibiotic Form <ESAU Tyler Last Filed: 10/30/24 09:24> Additional Instructions: He may stop taking the prednisone. Follow up with the PCP next few days for re-evaluation. Return to the ED for any new or worsening symptoms. <ESAU Tyler Last Filed: 10/30/24 09:24> Patient Language: Tuvaluan <ESAU Tyler Last Filed: 10/30/24 09:24> Prescriptions: No Action Eliquis 5 mg tablet 5 mg PO BID Qty: 60 0RF albuterol sulfate 90 mcg/actuation HFA aerosol inhaler 2 puff INHALATION QID PRN (Reason: shortness of breath or wheezing) Qty: 8.5 3RF buspirone 15 mg tablet 15 mg PO BID PRN (Reason: anxiety) Qty: 40 0RF oxybutynin chloride 10 mg tablet extended release 24hr 10 mg PO DAILY Qty: 1 0RF cetirizine 10 mg tablet 10 mg PO DAILY PRN (Reason: allergy symptoms) Qty: 90 0RF diltiazem HCl [Cartia XT] 240 mg capsule,extended release 24hr 240 mg PO DAILY valacyclovir [Valtrex] 1 gram tablet 2,000 mg PO Q12H PRN (Reason: other) triamterene-hydrochlorothiazid 37.5-25 mg capsule 1 cap PO DAILY hydrocodone-acetaminophen 5-325 mg tablet 1 tablet PO Q12H PRN (Reason: pain) Qty: 14 0RF cyclobenzaprine 10 mg tablet 10 mg PO BID PRN (Reason: muscle spasm) Qty: 14 0RF ergocalciferol (vitamin D2) 1,250 mcg (50,000 unit) capsule 1,250 mcg PO WEEKLY Qty: 12 2RF potassium chloride 10 mEq capsule, extended release 10 meq PO .TWICE WEEKLY Qty: 30 3RF rosuvastatin 5 mg tablet 5 mg PO DAILY Qty: 90 0RF <Antonieta Mar PA-C - Last Filed: 10/30/24 09:24> Follow-up/Referrals: Zhanna Cordero MD [Primary Care Provider, Family Practice] <Antonieta Mar PA-C - Last Filed: 10/30/24 09:24>
[2024-10-29 12:59] VITALS: BP 147/97; PULSE 75; RESP 14; O2SAT 97
[2024-10-29] MEDS: ASPIRIN 81 MG CHEWABLE TABLET 324 MG PO (13:37)
--- NOTE | 2024-10-29 14:25 | ECG_ITS ---
Test Date: 2024-10-29 14:27:59 Measurements Intervals [place] Rate: 68 P: 0 [place]: 0 QRS: -10 QRSD: 102 T: 34 QT: 389 QTc: 416 Interpretive Statements ATRIAL FIBRILLATION DELAYED PRECORDIAL R/S TRANSITION BORDERLINE ST-T WAVE ABNORMALITY- ANT/HIGH LAT LEADS BASELINE ARTIFACT- I, II, III, AVR, AVL, AVF, V1-V6 ABNORMAL ECG Compared to ECG 10/29/2024 11:26:59 NO SIGNIFICANT CHANGE Electronically Signed On 10-29-2024 15:04:49 CDT by Rajesh Austin D.O.
[2024-10-29 14:37] VITALS: BP 141/73; PULSE 73; RESP 20; O2SAT 96
[2024-10-29 14:43] LABS: Add Urine Microscopic? NO; Appearance Urine Clear (Clear); Glucose Urine UA Negative (Negative); Leukocyte Esterase Ur Negative LEU/UL (Negative); Nitrate Urine Negative (Negative); Specific Grav Ur 1.006 (1.001-1.035)
[2024-10-29 15:10] VITALS: BP 138/86; PULSE 82; RESP 16; O2SAT 99
--- OUTSIDE RECORDS SUMMARY | 2024-10-29 15:29 | XMS_ITS | Encounter Summary ---
Author Organization [facility] Health Address [address] [place] [address] Care Team Providers Care Manager Helpdesk Name Role Phone Jung Regalado MD Unavailable [phone] Zhanna Cordero MD Primary Care Provider [phone] Encounter Details Date Type Department Care Team (Late st Contact Info) Description 01/23/2024 Lab Requisition [facility] - DermPath Lab [address] [place] [address] Hilaria Kaur DO [address] [facility] [address] [place] [address] Social History Tobacco Use Types Packs/Day Years [...] and heating? Not hard at all 09/16/2023 [place] [facility] - Occupational Stress [...] place to sleep or slept in a usp (including now)? No 09/16/2023 Comments No Sex and Gender Information Value Date Recorded Sex Assigned at Not on file Legal Sex Female 6:18 AM COMBINING MACHINE OPERATOR Gender Identity Not on file Sexual Orientation Not on file documented as of this encounter Functional Status * Is person deaf or have serious hearing difficulty? Answer Date of Assessment Author No 09/17/2023 5:44 AM Elas Webb RN * Is person blind or [...] Comments DERMATOPATHOLOGY Routine 01/23/2024 11:2 0 AM COMBINING MACHINE OPERATOR documented in this encounter Results * DERMATOPATHOLOGY (01/23/2024 11:20 AM COMBINING MACHINE OPERATOR) Case Report Dermatopathology Report Case: [id number] Authorizing Provider: Hilaria Kaur DO Collected: 01/23/2024 11:20 AM Ordering Location: [facility] - Received: 01/24/2024 07:30 AM DermPath Lab Pathologist: Jenny Flores MD Specimens: A) - Skin, right upper arm B) - Skin, left ventral forearm C) - Skin, left anterior LE D) - Skin, right anterior LE 4:22 PM COMBINING MACHINE OPERATOR DERMATOPATHOLOGY LABORATORY Final Diagnosis Specimen A. SKIN, right upper arm: SQUAMOUS CELL CARCINOMA, KERATOACANTHOMA TYPE (C44.622) Specimen B. SKIN, left ventral forearm: COMPOUND MELANOCYTIC NEVUS, IRRITATED (D22.62) (see microscopic description and comment) Specimen C. SKIN, left anterior LE: LARGE CELL ACANTHOMA (D23.9) Specimen D. SKIN, right anterior LE: HYPERPLASTIC (HYPERTROPHIC) ACTINIC KERATOSIS, LICHENOID (L57.0) 4:22 PM COMBINING MACHINE OPERATOR DERMATOPATHOLOGY LABORATORY at 1622 COMBINING MACHINE OPERATOR Clinical History A: R/O NMSC B: R/O Melanoma C-D: R/O NMSC 4:22 PM COMBINING MACHINE OPERATOR DERMATOPATHOLOGY LABORATORY Gross Description Specimen A: Received [...] 6x5x1 mm. Jar 0. 4 4:22 PM [facility] DERMATOPATHOLOGY LABORATORY Microscopic Description Specimen A. SKIN, [...] some basal vacuolar alteration. 4 4:22 PM [facility] DERMATOPATHOLOGY LABORATORY Disclaimer An external and internal positive and negative controls are appropriate for the histochemical, immunohistochemical and immunofluorescence stain(s) in this case (if any), except where stated explicitly. The performance characteristics of the stain(s) cited in this report were developed and its performance characteristic determined by the Dermatopathology Laboratory at [facility], directed by Dr. Nica Diaz. These tests need not be, and therefore are not, approved by the [place] Food and Drug Administration. The tests are used for clinical purposes. Billing Codes Specimen Charges Stain Charges 35215 68648 73865 41170 1 1 1 1 97300 60092 10420 1 1 1 4 4:22 PM COMBINING MACHINE OPERATOR DERMATOPATHOLOGY LABORATORY Embedded Images 4 4:22 PM COMBINING MACHINE OPERATOR DERMATOPATHOLOGY LABORATORY Pathology/Cytology TISSUE SPECIMEN FROM SKIN / Unknown 01/23/2024 11:20 AM COMBINING MACHINE OPERATOR 01/24/2024 7:30 AM COMBINING MACHINE OPERATOR Miscellaneous samples (specimen) TISSUE SPECIMEN FROM SKIN / Unknown 01/23/2024 11:20 AM COMBINING MACHINE OPERATOR 01/24/2024 7:30 AM COMBINING MACHINE OPERATOR Miscellaneous samples (specimen) TISSUE SPECIMEN FROM SKIN / Unknown 01/23/2024 11:20 AM COMBINING MACHINE OPERATOR 01/24/2024 7:30 AM COMBINING MACHINE OPERATOR Miscellaneous samples (specimen) TISSUE SPECIMEN FROM SKIN / Unknown 01/23/2024 11:20 AM COMBINING MACHINE OPERATOR 01/24/2024 7:30 AM COMBINING MACHINE OPERATOR us Hilaria Kaur DO LAB - PATHOLOGY/CYTOLOGY ORDERABLES Final Result Performing Organization Address City/State/[facility] Co de Phone Number DERMATOPATHOLOGY LABORATORY [facility] - Department of Dermatology [facility] Medicine [address] [place] [address], [address] [phone] documented in this encounter Visit Diagnoses Not on filedocumented in this encounter Care Teams Manager Helpdesk Relationship Specialty Start Date End Date Zhanna Cordero MD [address] [place] [address] PCP - General 12/01/21 Jung Regalado MD [address] [place] [address] Family Medicine 03/16/10 documented as of this encounter
--- OUTSIDE RECORDS SUMMARY | 2024-10-29 15:29 | XMS_ITS | Encounter Summary ---
Author Organization [facility] Address [address] [place] [address] Care Team Providers Care Scale Shooter Name Role Phone Jung Regalado MD Primary Care Provider [phone] Encounter Details Date Type Department Care Team (Latest Contact Info) Description 09/23/2005 Outpatient Historical HIS [facility] MICHELINE Gonzalez, Maged Pizano MD NO ADDRESS ON FILE Other Screening Mammogram (Primary Dx) Social History Tobacco Use Types Packs/Day Years Used Date Smoking Tobacco: Never Assessed Comments Unknown Sex and Gender Information Value Date Recorded Sex Assigned at Not on file Legal Sex Female 4:20 AM BRAZER RESISTANCE Gender Identity Not on file Sexual Orientation Not on file documented as of this encounter Plan of Treatment Not on file documented as of this encounter Visit Diagnoses Diagnosis Other screening mammogram- Primary documented in this encounter Care Teams Scale Shooter Relationship Specialty Start Date End Date Jung Regalado MD [address] [place] [id number] PCP - General 01/20/09 documented as of this encounter
--- OUTSIDE RECORDS SUMMARY | 2024-10-29 15:29 | XMS_ITS | Encounter Summary ---
Author Organization [facility] Address [address] [place] [address] Care Team Providers Care Enterprise Application Architect Name Role Phone Jung Regalado MD Unavailable [phone] Jung Regalado MD Primary Care Provider + [phone] Zhanna Cordero MD Primary Care Provider [phone] Encounter Details Date Type Department Care Team (Late st Contact Info) Description 04/26/2018 Lab Requisition [facility] Care DermPath Lab [address] [facility], [place] [address] Abiola Stoddard MD [address] [facility] 3 [place] [address] Social History Tobacco Use Types Packs/Day Years Used Date Smoking Tobacco: Never Smokeless Tobacco: Never Alcohol Use Standard Drinks/Week Comments Yes 0 (1 standard drink = 0.6 oz pur e alcohol) Comments No Sex and Gender Information Value Date Recorded Sex Assigned at Not on file Legal Sex Female 6:18 AM DIGITAL PRODUCTION MANAGER Gender Identity Not on file Sexual Orientation Not on file documented as of this encounter Plan of Treatment Not on file documented as of this encounter Visit Diagnoses Not on filedocumented in this encounter Care Teams Enterprise Application Architect Relationship Specialty Start Date End Date Jung Regalado MD [address] [place] [address] PCP - General 07/12/17 11/30/21 Zhanna Cordero MD [address] [place] [address] PCP - General 12/01/21 Jung Regalado MD [address] [place] [address] Family Medicine 03/16/10 documented as of this encounter
--- OUTSIDE RECORDS SUMMARY | 2024-10-29 15:29 | XMS_ITS | Encounter Summary ---
Author Organization [facility] Address [address] [place] [address] Care Team Providers Care Accelerator Operator Name Role Phone Jung Regalado MD Primary Care Provider + [phone] Encounter Details Date Type Department Care Team (Late st Contact Info) Description 07/20/2004 Outpatient Historical [facility] Support Serv. (Adt Cardiology-[facility]) [address] [place] [address] Kaleb Raphael MD [address] [place] [address] Social History Tobacco Use Types Packs/Day Years Used Date Smoking Tobacco: Never Assessed Comments Unknown Sex and Gender Information Value Date Recorded Sex Assigned at Not on file Legal Sex Female 4:20 AM PRESSURE TESTER Gender Identity Not on file Sexual Orientation Not on file documented as of this encounter Plan of Treatment Not on file documented as of this encounter Visit Diagnoses Not on filedocumented in this encounter Care Teams Accelerator Operator Relationship Specialty Start Date End Date Jung Regalado MD [address] [place] [address] PCP - General 01/20/09 documented as of this encounter
--- OUTSIDE RECORDS SUMMARY | 2024-10-29 15:29 | XMS_ITS | Encounter Summary ---
Author Organization [facility] Address [address] [place] [address] Care Team Providers Care Brooch Maker Novelty Name Role Phone Jung Regalado MD Primary Care Provider [phone] Zhanna Cordero MD Primary Care Provider [phone] Encounter Details Date Type Department Care Team (Late st Contact Info) Description 09/24/2019 Telephone [facility] [address] [place] [address] [address]ela Beltran RT Social History Tobacco Use Types Packs/Day Years Used Date Smoking Tobacco: Never Smokeless Tobacco: Never Alcohol Use Standard Drinks/Week Comments Yes 0 (1 standard drink = 0.6 oz pur e alcohol) socially Comments Unknown Sex and Gender Information Value Date Recorded Sex Assigned at Not on file 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 Gender Identity Female 06/30/2022 6:11 AM CDT Sexual Orientation Straight 06/30/2022 6: 11 AM CDT Occupation Industry Job Start Date Job End Date retired Not on file Not on file Not on file documented as of this encounter Plan of Treatment Not on file documented as of this encounter Visit Diagnoses Not on filedocumented in this encounter Care Teams Brooch Maker Novelty Relationship Specialty Start Date End Date Jung Regalado MD [address] [place] [address] PCP - General 10/05/16 05/21/20 Zhanna Cordero MD [address] [place] [address] PCP - General Family Medicine 05/22/20 documented as of this encounter
--- OUTSIDE RECORDS SUMMARY | 2024-10-29 15:29 | XMS_ITS | Clinical Summary ---
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
--- OUTSIDE RECORDS SUMMARY | 2024-10-29 15:29 | XMS_ITS | Continuity of Care Document ---
Author Organization [facility] Address [address] [place] [address] [address] [place] [address] Phone Care Team Providers Care Switchboard Receptionist Name Role Phone Olman Zelaya Unavailable Unavailable Advance Directives Directive Yes / No Effective Date File Name No Information Encounters Encounter Description Practice Location Reason(s) For Visit Diagnoses Date Provider Providers Copied on Encounter [facility], [address] [place] [address] [address], [place], [place], [id number], [place] tel:[phone] [facility] No Information [address]. [address] , [address], [place], [address], [place]. tel:[phone] Family History Family Member Type Diagnosis Age At Onset No Information Payers Payer name Insurance type Covered libertarian ID Authoriza tikrista(s) [employer] SOI CI [id number] Social History Type Description Quantity Date Captured [...]
--- OUTSIDE RECORDS SUMMARY | 2024-10-29 15:29 | XMS_ITS | Continuity of Care Document ---
Author Organization [facility] Address [address] [place] [address] Phone Care Team Providers Care Enterprise Account Manager Name Role Phone Kya Marina NP Unavailable Unavailabl e Allergies, Adverse Reactions, Alerts Substance Reaction Status Criticality No Known Allergies Active No Inform ation Medications Medication Instructions Dosage Effective Dates (start - stop) Status Comments VITAMIN C (unknown strength) Not Available - Active Eliquis 5 mg tablet - Active potassium chloride ER 10 mEq tablet,extended release take 1 tablet by oral route every day with food 10 MEQ - Active triamterene 37.5 mg-hydrochlorothiazi de 25 mg capsule - Active Vitamin D2 1,250 mcg (50,000 unit) capsule - Active diltiazem ER 240 mg capsule,extended release take 1 capsule by oral route every day 240 MG - Active cyclobenzaprine 10 mg tablet take 1 tablet by oral route 3 times every day 10 MG - No Longer Active acyclovir 200 mg capsule take 1 capsule by oral route every 4 hours 5 times per day 200 MG - No Longer Active acyclovir 5 % topical ointment apply by topical route every 3 hours 6 times per day to the affected area(s) 0.00 - No Longer Active albuterol sulfate HFA 90 mcg/actuation aerosol inhaler inhale 2 puff by inhalation route every 4 - 6 hours as needed 180 MCG - No Longer Active alprazolam 0.5 mg tablet take 1 tablet by oral route 3 times every day 0.5 MG - No Longer Active diclofenac 1 % topical gel apply 2 gram by topical route 4 times every day to the affected area(s) 2.00 gram - No Longer Active buspirone 15 mg tablet take 1 tablet by oral route 2 times every day 15 MG - No Longer Active hydrocodone 10 mg-acetaminophen 325 mg tablet take 1 tablet by oral route every 6 hours as needed for pain - No Longer Active Hair,Skin and Nails tablet - No Longer Active melatonin 10 mg tablet - No Longer Active nitrofurantoin macrocrystal 100 mg capsule take 1 capsule by oral route every 6 hours for 7 days with food 100 MG - No Longer Active oxybutynin chloride ER 10 mg tablet,extended release 24 hr take 1 tablet by oral route every day 10 MG - No Longer Active pantoprazole 40 mg tablet,delayed release take 1 tablet by oral route every day 40 MG - No Longer Active valacyclovir 1 gram tablet take 1 tablet by oral route every 12 hours 1000 MG - No Longer Active WAL-DRYL (unknown strength) take 2 capsule by oral route every 4 - 6 hours as needed Not Available - No Longer Active HYOSCYAMINE SULFATE (unknown strength) Not Available - No Longer Active gabapentin 400 mg capsule - No Longer Active Procedures Procedure Date Triamcinolone acet inj NOS Drugs unclassified injection DRAIN/INJECT JOINT/BURSA OFFICE/OUTPATIENT VISIT EST RADEX KNE 3 VIEWS Triamcinolone acet inj [...] DXA BONE DENSITY STUDY 1+ SITS AXIAL SKE L PREV VISIT EST AGE 40-64 Advance [...] OFFICE/OUTPA TIENT VISIT EST [facility], [address], [place], [address], [place] tel:[phone] [facility] Primary osteoarthritis of left knee 5 [address] [place]. [address], [place], [place], [address], [place]. tel:[phone] Referring Provider: Zhanna Coronel, [address] [place], [address] . tel:[phone] OFFICE/OUTPA TIENT VISIT EST [facility], [address], [place], [address], [place] tel:[phone] [facility] Primary osteoarthritis of left kneeBody mass index [BMI] 33.0-33.9, adultStatus post total right knee replacement [address] [place] [place]. [address], [place], [address], [place]. tel:[phone] Referring Provider: Zhanna Coronel, [address] [place] [address], [address] . tel:[phone] OFFICE/OUTPA TIENT VISIT EST [facility], [address], [place], [address], [place] tel:[phone] [facility] [place] Primary osteoarthritis of left kneeStatus post total right knee replacementBody mass index [BMI] 33.0-33.9, adultBody mass index [BMI] 31.0-31.9, adult [address] [place] [place]. [address], [place], [address], [place]. tel:[phone] Referring Provider: Zhanna Coronel, [address] [place] [address], [address] . tel:[phone] OFFICE/OUTPA TIENT VISIT EST [facility], [address], [place], [address], [place] tel:[phone] [facility] [place] Body mass index [BMI] 33.0-33.9, adultStatus post total right knee replacementRigh t knee pain, unspecified chronicityPrima ry osteoarthritis of left knee 3 [address] Shayna. [address], [place], [place], [address]. tel:[phone] Referring Provider: Zhanna Coronel, [address] [place] [address], [address] . tel:[phone] OFFICE/OUTPA TIENT VISIT EST [facility], [address], [place], [address], [place] tel:[phone] [facility] [place] Status post total right knee replacementPrim reji osteoarthritis of left kneeBody mass index [BMI] 33.0-33.9, adult 3 Sam Gomez . [address], [place], [place], [address]. tel:[phone] Referring Provider: Zhanna Coronel, [address] [place] [address], [address] . tel:[phone] [facility], [address], [place], [address], [place] tel:[phone] [facility] [place] Status post total right knee replacementRigh t knee pain, unspecified chronicity [address]vette. [address], [place], [place], [address], [place]. tel:[phone] Referring Provider: Zhanna Coronel, [address] [place] [address], [address] . tel:[phone] [facility], [address], [place], [address], [place] tel:[phone] [facility] [place] Primary osteoarthritis of right kneeStatus post total right knee replacementBody mass index [BMI] 33.0-33.9, adult [address], [place], [place], [address], [place]. tel:[phone] Referring Provider: Zhanna Coronel, [address] [place] [address], [address] . tel:[phone] [facility], [address] [facility] [address], [place], [address], [place] tel:[phone] [facility] Status post total right knee replacement 2 Sam Gomez . [address], [place], [place], [address]. tel:[phone] [facility], [address], [place], [address], [place] tel:[phone] [facility] Primary osteoarthritis of right knee 2 Sam Mckeoner . [address], [place], [place], [address]. tel:[phone] [facility], [address] [address], [place], [address], [place] tel:[phone] [facility] No Information 2 Sam Mckeoner . [address], [place], [place], [address]. tel:[phone] [facility], [address] [address], [place], [address], [place] tel:[phone] [facility] Primary osteoarthritis of right kneeLong term current use of anticoagulantCl ass 1 obesity with body mass index (BMI) of 33.0 to 33.9 in adult, unspecified obesity type, unspecified whether serious comorbidity presentHyperten esha, unspecified type 2 Sam Mckeoner . [address], [place], [place], [address]. tel:[phone] OFFICE/OUTPA TIENT VISIT NEW [facility], [address] [facility] [address], [place], [address], [place] tel:[phone] [facility] Pain in left kneePrimary osteoarthritis of right kneePrimary osteoarthritis of left kneeRight knee pain, unspecified chronicityBody mass index [BMI] 33.0-33.9, adult 2 Sam Mckeoner . [address], [place], [place], [address]. tel:[phone] Referring Provider: Zhanna Coronel, [address] [place], [address] . tel:[phone] [facility] [address] [facility] [address], [place], [address], [place] tel:[phone] [facility] Abnormal mammogram of left breast Sep- 9 Indiaing Mikeer . [address], [place], [place], [address]. tel:[phone] [facility] [address] [facility] [address], [place], [address], [place] tel:[phone] [facility] Abnormality of left breast on screening mammography Nov- 9 Indiaing Mikeer . [address], [place], [place], [address]. tel:[phone] [facility] [address] [facility] [address], [place], [address], [place] tel:[phone] [facility] Oth disrd of bone density and structure, other site 8 Delfino Gomez . [address], [place], [place], [address]. tel:[phone] [facility] [address] [facility] [address], [place], [address], [place] tel:[phone] [facility] Annual exam (chief complaint) Other specified disorders of bone density and structure, other siteEncounter for well woman exam with routine gynecological examAcquired absence of both cervix and uterusAcquired absence of ovaries, bilateral 8 Delfino Gomez . [address], [place], [place], [address]. tel:[phone] [facility] [address] [facility] [address], [place], [address], [place] tel:[phone] [facility] Screening exam (chief complaint) Encounter for gynecological examination without abnormal findingAcquired absence of both cervix and uterus 3 5 Delfino Gomez . [address], [place], [place], [address]. tel:[phone] OFFICE/OUTPA TIENT VISIT EST [facility] [address] [facility] [address], [place], [address], [place] tel:[phone] [facility] Vaginal burning and itching (chief complaint) Lichen sclerosus et atrophicus of the vulva 5 Delfino Gomez . [address], [place], [place], [address]. tel:[phone] OFFICE/OUTPA TIENT VISIT EST [facility] [address] [facility] [address], [place], [address], [place] tel:[phone] [facility] Screening exam (chief complaint) annual exam (chief complaint) Routine AIR BRUSH DECORATOR examDepressionD iverticulitis of colon (without mention of hemorrhage)Sanchez atric surgery statusBack pain 4 Lisa Lynne. [address], [place], [address]. tel:[phone] OFFICE/OUTPA TIENT VISIT EST [facility] [address] [facility] [address], [place], [address], [place] tel:[phone] [facility] screening (chief complaint) Routine AIR BRUSH DECORATOR examMenopauseOs teoarthritis, GeneralizedDepr essionMammogram , Screening 3 Lisa Lynne. [address], [place], [address]. tel:[phone] [facility] [address] [facility] [address], [place], [address], [place] tel:[phone] [facility] BMD (chief complaint) Special screening for osteoporosisMen opausal Symptoms 3 Lisa Lynne. [address], [place], [address]. tel:[phone] PREV VISIT EST AGE 40-64 [facility] [address] [facility] [address], [place], [address], [place] tel:[phone] [facility] annual visit (chief complaint) Well Woman / Routine Feather Duster Winder/PapMenopaus al SymptomsOsteoar thritis, GeneralizedDive rticulitis of colon (without mention of hemorrhage)Depr ession 2 Lisa Maged. [address], [place], [address]. tel:[phone] Family History Family Member Type Diagnosis Age [...] Provider Payers Payer name Insurance type Covered alliance party ID Authorwellingtona honoriokrista(s) AARP Medicare Complete HMO-POS [id number] Social History Type Description Quantity Date Captured Comments Alcohol Use Details Caffeine Use Details Unknown Tobacco Use Status No Information Smoking Status Never smoker Non-Smoking Tobacco Use Details : No Details Available : No Details Available Sex Female Vital Signs Date / Time: Height Weight BMI Pulse Rate Blood Pressure Temperature Respiratory Rate Body Surface Area Head Circumference Head Circ. Percentile Wt./Allan. Percentile BMI percentile Pulse Ox Inhaled Ox 5:07 PM 62.00 in 79.379 kg (175.00 lbs) 32.0 1 kg/m eter (2) Chief Complaint And Reason For Visit No [...] ordered Future Order: Lab Order Pap-Liqu id-based ([id number]), Ordered on: Ordered History Of Present Illness Encounter Date Complaint History Of Prese nt Illness Annual exam (comments) This paola ent has no wildlife protector related complaints. She has had hysterectomy/BSO and [...] exam Screening exam This patient has no wildlife protector related complaints. She has had hysterectomy with [...] pain and saw clinic for pain at [place]. Screening exam Functional Status Date Functional Assessmen t No Information Instructions Date Instruction Additional Infor mation Giving encouragement to exercise Related to Body [...] assessment Primary osteoarthritis of left k nee Patient Care Teams Name Effective Dates (start - stop) Status Members No Information
--- OUTSIDE RECORDS SUMMARY | 2024-10-29 15:29 | XMS_ITS | Encounter Summary ---
Author Organization [facility] Address [address] [place] [address] Care Team Providers Care Rental Agent Name Role Phone Jung Regalado MD Unavailable [phone] Jung Regalado MD Primary Care Provider [phone] Zhanna Cordero MD Primary Care Provider [phone] Encounter Details Date Type Department Care Team (Late st Contact Info) Description 04/26/2018 Lab Requisition [facility] Care DermPath Lab [address] [facility], [place] [address] Abiola Stoddard MD [address] [facility] 3 [place] [address] Social History Tobacco Use Types Packs/Day Years Used Date Smoking Tobacco: Never Smokeless Tobacco: Never Alcohol Use Standard Drinks/Week Comments Yes 0 (1 standard drink = 0.6 oz pur e alcohol) Comments No Sex and Gender Information Value Date Recorded Sex Assigned at Not on file Legal Sex Female 6:18 AM [facility]OSPICE [facility] Gender Identity Not on file Sexual Orientation Not on file documented as of this encounter Plan of Treatment Not on file documented as of this encounter Procedures Procedure Name Priority Date/Time Associated Diagnosis Comments DERMATOPATH TECHNICAL REPORT Routine 04/25/2018 12:00 AM [facility] documented in this encounter Results * DERMATOPATH TECHNICAL REPORT (04/25/2018 12:00 AM [facility]) Case Report Dermatopathology Report Case: [id number] Authorizing Provider: Abiola Stoddard MD Collected: 04/25/2018 12:00 AM Pathologist: Freida Diehl MD Received: 04/26/2018 10:46 AM Specimen: Skin, right post thigh 12:27 PM [facility] Addendum 1 At the request of the diagnosing physician, the technical component for [place]-1/Melan A was performed by [facility] Dermatopathology Laboratory. 12:27 PM [facility] Addendum electronically signed by Freida Diehl MD on 04/28/2018 at 1227 [facility] Clinical History Nevus, irr color, irr border. 12:27 PM [facility] Gross Description Specimen A: Received is one formalin filled container labeled with the patient's name and designated right post thigh. The specimen consists of a shave measuring [id number]. Jar 0. [facility] Dermatopathology [facility] performed the technical component only. 12:27 PM [facility] Embedded Images 12:27 PM [facility] DISCLAIMER An external and internal positive and negative controls are appropriate for the histochemical, immunohistochemical and immunofluorescence stain(s) in this case (if any), except where stated explicitly. The performance characteristics of the stain(s) cited in this report were developed and its performance characteristic determined by the Dermatopathology Laboratory at [facility], directed by Dr. Nica Diaz. These tests need not be, and therefore are not, approved by the [place] Food and Drug Administration. The tests are used for clinical purposes. 12:27 PM [facility] at [facility] Pathology/Cytolog y TISSUE SPECIMEN FROM SKIN / Unknown 04/25/2018 04/26/2018 10:46 AM [facility] Abiola Stoddard MD LAB - PATHOLOGY/CYTOLOGY OR DERABLES Edited Result - Final DERMATOPATHOLOGY LABORATORY [facility] - Department of Dermatology [address] [place] [address], 5th Floor Lab [address] [phone] documented in this encounter Visit Diagnoses Not on filedocumented in this encounter Care Teams Rental Agent Relationship Specialty Start Date End Date Jung Regalado MD [address] [place] [address] PCP - General 07/12/17 11/30/21 Zhanna Cordero MD [address] [place] [address] PCP - General 12/01/21 Jung Regalado MD [address] [place] [address] Family Medicine 03/16/10 documented as of this encounter
--- OUTSIDE RECORDS SUMMARY | 2024-10-29 15:29 | XMS_ITS | Encounter Summary ---
Author Organization [facility] Facility Care Team Providers Care Accounting Practice Manager Name Role Phone Jung Regalado MD Primary Care Provider [phone] Zhanna Cordero MD Primary Care Provider [phone] Encounter Details Date Type Department Care Team (Latest Contact Info) Description 02/08/2017 Orders Only [facility]IN[facility] ProviderConstance MD [address] [place], [place] [id number] Social History Tobacco Use Types Packs/Day Years Used Date Smoking Tobacco: Never Comments Unknown Sex and Gender Information Value Date Recorded Sex Assigned at Not on file Legal Sex Female 11:28 AM 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 ENAMELING SUPERVISOR Gender Identity Female 06/30/2022 6:11 AM CDT Sexual Orientation Straight 06/30/2022 6: 11 AM CDT documented as of this encounter Plan of Treatment Not on file documented as of this encounter Procedures Procedure Name Priority Date/Time Associated Diagnosis Comments PROCEDURE - RESULT 02/10/2017 12 :00 AM PORCELAIN ENAMELING SUPERVISOR PROCEDURE - RESULT 02/08/2017 12 :00 AM PORCELAIN ENAMELING SUPERVISOR documented in this encounter Results * PROCEDURE - RESULT (02/10/2017 12:00 AM PORCELAIN ENAMELING SUPERVISOR) Narrative 02/10/2017 12:00 AM PORCELAIN ENAMELING SUPERVISOR Ordered by an unspecified provider. Historical Provider Final Res ult * PROCEDURE - RESULT (02/08/2017 12:00 AM PORCELAIN ENAMELING SUPERVISOR) Narrative 02/08/2017 12:00 AM PORCELAIN ENAMELING SUPERVISOR Ordered by an unspecified provider. us Historical Provider Final Res ult documented in this encounter Visit Diagnoses Not on filedocumented in this encounter Care Teams Accounting Practice Manager Relationship Specialty Start Date End Date Jung Regalado MD [address] [place] [address] PCP - General 10/05/16 05/21/20 Zhanna Cordero MD [address] [place] [address] PCP - General Family Medicine 05/22/20 documented as of this encounter
--- OUTSIDE RECORDS SUMMARY | 2024-10-29 15:29 | XMS_ITS | Encounter Summary ---
Author Organization [facility] Address [address] [place] [address] Care Team Providers Care Animal Trapper Name Role Phone Jung Regalado MD Primary Care Provider + [phone] Encounter Details Date Type Department Care Team (Latest Contact Info) Description 09/03/2002 Outpatient Historical HIS [facility] MICHELINE Gonzalez, Maged Pizano MD NO ADDRESS ON FILE SCREENING MAMM-MALIG NEOPL-HI RISK (Primary Dx) Social History Tobacco Use Types Packs/Day Years Used Date Smoking Tobacco: Never Assessed Comments Unknown Sex and Gender Information Value Date Recorded Sex Assigned at Not on file Legal Sex Female 4: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
--- OUTSIDE RECORDS SUMMARY | 2024-10-29 15:29 | XMS_ITS | Encounter Summary ---
Author Organization [facility] Address [address] [place] [address] Care Team Providers Care Sample Distributor Name Role Phone Jung Regalado MD Primary Care Provider + [phone] Encounter Details Date Type Department Care Team (Latest Contact Info) Description 05/22/1998 Outpatient Historical HIS [facility] MICHELINE Gonzalez, Maged Pizano MD NO ADDRESS ON FILE Other screening mammogram (Primary Dx) Social History Tobacco Use Types Packs/Day Years Used Date Smoking Tobacco: Never Assessed Comments Unknown Sex and Gender Information Value Date Recorded Sex Assigned at Not on file Legal Sex Female 4:20 AM ACID TREATER Gender Identity Not on file Sexual Orientation Not on file documented as of this encounter Plan of Treatment Not on file documented as of this encounter Visit Diagnoses Diagnosis Other screening mammogram- Primary documented in this encounter Care Teams Sample Distributor Relationship Specialty Start Date End Date Jung Regalado MD [address] [place] [address] PCP - General 01/20/09 documented as of this encounter
--- OUTSIDE RECORDS SUMMARY | 2024-10-29 15:29 | XMS_ITS | Encounter Summary ---
Author Organization [facility] Address [address] [place] [address] Care Team Providers Care Plumbing Foreman Name Role Phone Jung Regalado MD Primary Care Provider + [phone] Encounter Details Date Type Department Care Team (Latest Contact Info) Description 09/23/2004 Outpatient Historical HIS [facility] MICHELINE Gonzalez, Maged Pizano MD NO ADDRESS ON FILE SCREENING MAMM-MAILG NEOPL-OTHER (Primary Dx) Social History Tobacco Use Types Packs/Day Years Used Date Smoking Tobacco: Never Assessed Comments Unknown Sex and Gender Information Value Date Recorded Sex Assigned at Not on file Legal Sex Female 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
--- OUTSIDE RECORDS SUMMARY | 2024-10-29 15:29 | XMS_ITS | Encounter Summary ---
Author Organization [facility] Address [address] [place] [address] Care Team Providers Care Snaker Driving Horses Name Role Phone Jung Regalado MD Unavailable [phone] Jung Regalado MD Primary Care Provider + [phone] Zhanna Cordero MD Primary Care Provider [phone] Encounter Details Date Type Department Care Team (Late st Contact Info) Description 06/07/2018 Lab Requisition [facility] Care DermPath Lab [address] [facility], [place] [address] Abiola Stoddard MD [address] [facility] [address] [place] [address] Social History Tobacco Use Types Packs/Day Years Used Date Smoking Tobacco: Never Smokeless Tobacco: Never Alcohol Use Standard Drinks/Week Comments Yes 0 (1 standard drink = 0.6 oz pur e alcohol) Comments No Sex and Gender Information Value Date Recorded Sex Assigned at Not on file Legal Sex Female 6:18 AM TEST ENGINE OPERATOR Gender Identity Not on file Sexual Orientation Not on file documented as of this encounter Plan of Treatment Not on file documented as of this encounter Procedures Procedure Name Priority Date/Time Associated Diagnosis Comments DERMATOPATHOLOGY Routine 06/06/2018 12:0 0 AM CDT documented in this encounter Results * DERMATOPATHOLOGY (06/06/2018 12:00 AM CDT) Case Report Dermatopathology Report Case: [id number] Authorizing Provider: Abiola Stoddard MD Collected: 06/06/2018 [...] of a non-oriented ellipse of skin measuring 27d14q9 mm. The epidermal surface is unremarkable. The [...] characteristic determined by the Dermatopathology Laboratory at [facility], directed by Dr. Nica Diaz. These tests need not be, and therefore are not, approved by the [place] Food and Drug Administration. The tests are used for clinical purposes. Billing Codes Specimen Charges Stain Charges 29823 1 03/28/201 9 12:25 PM CDT DERMATOPATHOLOGY LABORATORY Embedded Images 9 12:25 PM CDT DERMATOPATHOLOGY LABORATORY Pathology/Cytolog y TISSUE SPECIMEN FROM SKIN / Unknown 06/06/2018 06/07/2018 7:02 AM CDT Abiola Stoddard MD LAB - PATHOLOGY/CYTOLOGY OR DERABLES Final Result DERMATOPATHOLOGY LABORATORY [facility] - Department of Dermatology [address] [place] [address], 5th Floor Lab [address] [phone] documented in this encounter Visit Diagnoses Not on filedocumented in this encounter Care Teams Snaker Driving Horses Relationship Specialty Start Date End Date Jung Regalado MD [address] [place] [address] PCP - General 07/12/17 11/30/21 Zhanna Cordero MD [address] [place] [address] PCP - General 12/01/21 Jung Regalado MD [address] [place] [address] Family Medicine 03/16/10 documented as of this encounter
--- OUTSIDE RECORDS SUMMARY | 2024-10-29 15:29 | XMS_ITS | Encounter Summary ---
Author Organization [facility] Address 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
--- OUTSIDE RECORDS SUMMARY | 2024-10-29 15:29 | XMS_ITS | Encounter Summary ---
Author Organization [facility] Address [address] [place] [address] Care Team Providers Care Induction Furnace Operator Name Role Phone Jung Regalado MD Primary Care Provider + [phone] Encounter Details Date Type Department Care Team (Latest Contact Info) Description 06/22/2000 Outpatient Historical HIS [facility] MICHELINE Gonzalez, Maged Pizano MD NO ADDRESS ON FILE Other screening mammogram (Primary Dx) Social History Tobacco Use Types Packs/Day Years Used Date Smoking Tobacco: Never Assessed Comments Unknown Sex and Gender Information Value Date Recorded Sex Assigned at Not on file Legal Sex Female 4:20 AM 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
--- OUTSIDE RECORDS SUMMARY | 2024-10-29 15:29 | XMS_ITS | Clinical Summary ---
Author Organization [facility] Address [address] [place] [address] Phone Care Team Providers Care Carton Forming Machine Helper Name Role Phone Jung Regalado MD Primary Care Provider + [phone] Allergies No known active allergies Medications acyclovir [...] on file Legal Sex Female 4:20 AM SALES ASSISTANT Gender Identity Not on file Sexual Orientation [...] Relevant to Health Maintenance Insurance Care Teams Carton Forming Machine Helper Relationship Specialty Start Date End Date Jung Regalado MD [address] [place] [address] PCP - General 01/20/09
--- OUTSIDE RECORDS SUMMARY | 2024-10-29 15:29 | XMS_ITS | Encounter Summary ---
Author Organization [facility] Address [address] [place] [address] Care Team Providers Care Rig Hand Name Role Phone Jung Regalado MD Primary Care Provider + [phone] Encounter Details Date Type Department Care Team (Latest Contact Info) Description 09/23/2003 Outpatient Historical HIS [facility] MICHELINE Gonzalez, Maged Pizano MD NO ADDRESS ON FILE SCREENING MAMM-MAILG NEOPL-OTHER (Primary Dx) Social History Tobacco Use Types Packs/Day Years Used Date Smoking Tobacco: Never Assessed Comments Unknown Sex and Gender Information Value Date Recorded Sex Assigned at Not on file Legal Sex Female 4:20 AM PLASTIC EXTRUDING MACHINE OPERATOR Gender Identity Not on file Sexual Orientation Not on file documented as of this encounter Plan of Treatment Not on file documented as of this encounter Visit Diagnoses Diagnosis Other screening mammogram- Primary documented in this encounter Care Teams Rig Hand Relationship Specialty Start Date End Date uJng Regalado MD [address] [place] [address] PCP - General 01/20/09 documented as of this encounter
--- OUTSIDE RECORDS SUMMARY | 2024-10-29 15:29 | XMS_ITS | Clinical Summary ---
Author Organization [facility] Address [address] [place] [address] Care Team Providers Care Billboard Erector Name Role Phone Jung Regalado MD Unavailable [phone] Zhanna Cordero MD Primary Care Provider [phone] Source Comments [facility],non-owned Affiliates and Associated Physician Practices is amultiple site organization consisting of ambulatory clinics and hospital sitesin [place], [place], [place] and [place]. This disclosure is being madepursuant to the Care Everywhere program and may not contain all information available regarding this patient. 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 Not hard at all 09/16/2023 [facility] - Occupational Stress Questionnaire Answer Date Recorded [...] to sleep or slept in a senior living (including now)? No 09/16/2023 Comments No Sex and Gender Information Value Date Recorded Sex Assigned at Not on file Legal Sex Female 6:18 AM ASSISTANT CHIEF NURSING OFFICER Gender Identity Not on file Sexual Orientation [...] this topic Medical Devices Implanted Type Area Risk Manager Device Identifier Shelf Expiration Date Model / Serial / Lot Cmpnt Ptlr S 31x9mm Tritanium Strl Lf Implanted:Qty: 1 on 02/05/2022 by Jason Vargas DO at [facility] Right: Knee [employer] 01/08/2027 [id number] / / [id number] Bsplt Tib Trthlm 4 Kn Tritanium Implanted:Qty: 1 on 02/05/2022 by Jason Vargas DO at [facility] Right: Knee [employer] 2026 [id number] / / [id number] Cmpnt Fem Kn Rt 3 Crcte Rtn Bead Trthln Implanted:Qty: 1 on 02/05/2022 by Jason Vargas DO at [facility] Right: Knee [employer] 11/21/2026 [id number] / / [id number] Ins Tib 4 9mm Kn X3 Crcte Sub Trthln Implanted:Qty: 1 on 02/05/2022 by Jason Vargas DO at [facility] Right: Knee [employer] 12/02/2026 [id number] / / [id number] Procedures Procedure Name Priority Date/Time Associated Diagnosis Comments DERMATOPATHOLOGY Routine 07/30/2024 10:1 9 AM CDT GLUCOSE - POINT OF CARE Routine 09/23/19 12:31 PM CDT from Last 3 Months or Most Recently Relevant to Health Maintenance Results * DERMATOPATHOLOGY (07/30/2024 10:19 AM CDT) Case Report Dermatopathology Report Case: [id number] Authorizing Provider: Hilaria Kaur DO Collected: 07/30/2024 10:19 AM Ordering Location: [facility] - Received: 07/30/2024 04:45 [...] purposes. Billing Codes Specimen Charges Stain Charges 21372 1 5 4:34 PM CDT DERMATOPATHOLOGY LABORATORY Embedded Images 5 4:34 PM CDT DERMATOPATHOLOGY LABORATORY Pathology/Cytolo gy TISSUE SPECIMEN FROM SKIN / Unknown 07/30/2024 10:19 AM CDT 07/30/2024 4:45 PM CDT us Hilaria Kaur DO LAB - PATHOLOGY/CYTOLOGY ORDERABLES Final Result DERMATOPATHOLOGY LABORATORY [facility] - Department of Dermatology [facility] [address] [facility], 3rd [place] [address], [place] [phone] * (ABNORMAL) GLUCOSE - POINT OF CARE (09/23/2023 12:31 PM CDT) Glucose WB/POC 225(H) 70 - 115 mg/dL 09/23/2023 12:36 PM CDT [facility] Specimen Type Cap Fingerstick 2023 12:36 PM CDT [facility] Blood BLOOD SPECIMEN / Unknown 09/23/2023 12:31 PM CDT 09/23/2023 12:36 PM CDT us Val Gross MD LAB - POINT OF CARE ORDERABLES Final Result [facility] [address] [place] [address], [place] [phone] from Last 3 Months or Most Recently Relevant to Health Maintenance Insurance [facility] MANAGED MEDICARE ADV Member Subscriber Plan / Payer (Ef fective for All Dates) Name:Kamran Lau Maru Member ID:Not on file Relation to Subscriber:Not on file Name:JO ANN LAUILA Subscriber ID:Not on file Address: [address] [id number] Payer ID:Not on file Group ID:Not on file Type:Self Pay Address: [facility] MANAGED MEDICARE ADV SELF PAY NO INSURANCE Member Subscriber Plan / Payer (Ef fective for All Dates) Name:Kamran Lau Member ID:Not on file Relation to Subscriber:Not on file Name:JO ANN LAUILA Subscriber ID:Not on file Address: [address] [place] [address] Payer ID:Not on file Group ID:Not on file Type:Self Pay Address: [facility] MANAGED MEDICARE ADV SELF PAY NO INSURANCE Member Subscriber Plan / Payer (Ef fective for All Dates) Name:Kamran Lau Member ID:Not on file Relation to Subscriber:Not on file Name:LAUJO ANNKAMRAN Subscriber ID:Not on file Address: [address] [place] [address] Payer ID:Not on file Group ID:Not on file Type:Self Pay Address: [facility] MANAGED MEDICARE ADV Advance Directives Documents on File Type Date Recorded Patient Grinder Set Up Operator Centerless Expl anation Adv Directive/Living Will/POA 02/09/2022 6:44 PM * Full Code (Latest Code Status on File) Date Activated Date Inactivated Comments 09/15/2023 2:57 PM 09/23/2023 5:54 PM * Full Code Date Activated Date Inactivated Comments 02/05/2022 12:13 PM 02/06/2022 3:14 PM Care Teams Billboard Erector Relationship Specialty Start Date End Date Zhanna Cordero MD [address] [place] [address] PCP - General 12/01/21 Jung Regalado MD [address] [place] [address] Family Medicine 03/16/10
--- OUTSIDE RECORDS SUMMARY | 2024-10-29 15:29 | XMS_ITS | Encounter Summary ---
Author Organization [facility] Address [address] [facility] [place] [address] Care Team Providers Care Stereo Plotter Operator Name Role Phone Jung Regalado MD Unavailable [phone] Zhanna Cordero MD Primary Care Provider [phone] Encounter Details Date Type Department Care Team (Late st Contact Info) Description 07/30/2024 Lab Requisition [facility] - DermPath Lab [address] [facility], [place] [address] Hilaria Kaur DO [address] [facility] [address] [place] [address] Social History Tobacco Use Types Packs/Day Years [...] and heating? Not hard at all 09/16/2023 [facility] [place] [facility] - Occupational Stress [...] place to sleep or slept in a long-term (including now)? No 09/16/2023 Comments No Sex and Gender Information Value Date Recorded Sex Assigned at Not on file Legal Sex Female 6:18 AM INSPECTOR FILTERS Gender Identity Not on file Sexual Orientation [...] Assessment Author Yes 09/17/2023 5:44 AM Elsa eWbb RN * Does person have difficulty doing [...] AM CDT) Case Report Dermatopathology Report Case: [id number] Authorizing Provider: Hilaria Kaur DO Collected: 07/30/2024 10:19 AM Ordering Location: [facility] - Received: 07/30/2024 04:45 PM [...] determined by the Dermatopathology Laboratory at [facility], directed by Dr. Nica Diaz. These tests need not be, and therefore are not, approved by the [place] Food and Drug Administration. The tests are used for clinical purposes. Billing Codes Specimen Charges Stain Charges [id number] 1 5 4:34 PM CDT DERMATOPATHOLOGY LABORATORY Embedded Images 5 4:34 PM CDT DERMATOPATHOLOGY LABORATORY Pathology/Cytolo gy TISSUE SPECIMEN FROM SKIN / Unknown 07/30/2024 10:19 AM CDT 07/30/2024 4:45 PM CDT us Hilaria Kaur DO LAB - PATHOLOGY/CYTOLOGY ORDERABLES Final Result Performing Organization Address City/State/[facility] Co de Phone Number DERMATOPATHOLOGY LABORATORY [facility] - Department of Dermatology [facility] Medicine [address] [place] [address], [address] Floor [address] [phone] documented in this encounter Visit Diagnoses Not on filedocumented in this encounter Care Teams Stereo Plotter Operator Relationship Specialty Start Date End Date Zhanna Cordero MD [address] [place] [address] PCP - General 12/01/21 Jung Regalado MD [address] [place] [address] Family Medicine 03/16/10 documented as of this encounter
--- OUTSIDE RECORDS SUMMARY | 2024-10-29 15:29 | XMS_ITS | Encounter Summary ---
Author Organization [facility] Address 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
--- OUTSIDE RECORDS SUMMARY | 2024-10-29 15:29 | XMS_ITS | Clinical Summary ---
Author Organization [facility] Address [address] [place] [address] Care Team Providers Care Pneumatic Tool Repairer Name Role Phone Zhanna Cordero MD Primary Care Provider [phone] Allergies No known active allergies Medications acyclovir [...] (10/09/2019): Added automatically from request for surgery [id number] Chronic pain of left knee 11/17/2018 Chronic [...] Description 10/02/2024 3:00 PM CDT Office Visit [facility] Orthopaedic Surgery [address] [place] [address] 2nd Floor [address] [place] [address] Shree Ramos MD Arthritis of carpometacarpal (CMC) joint of right thumb (Primary Dx); Trigger index finger of left hand 08/27/2024 1:03 PM CDT - 08/27/2024 11:59 PM CDT Hospital Encounter [facility] [address] [place] [phone] Screening mammogram, encounter for Discharge Disposition: Discharge to home or self care from Last 3 Months Surgical History Surgery Date Site/Laterality Comments AK TOTAL ABDOMINAL HYSTERECT W/WO RMVL TUBE OVARY Hysterectomy - (Added by TW Conv) AK ARTHROPLASTY GLENOHUMERAL JOINT TOTAL SHOULDER Left Shoulder [...] on file Legal Sex Female 11:28 AM FINISHING RANGE OPERATOR Gender Identity Female 06/30/2022 6:11 AM [...] 36.6 C (97.8 F) 01/22/2020 11:10 AM FINISHING RANGE OPERATOR Respiratory Rate 20 01/31/2020 10:46 AM FINISHING RANGE OPERATOR Oxygen Saturation 97% 11/08/2023 10:01 AM CDT [...] history exists Medical Devices Implanted Type Area Assistant Wrestling Coach Device Identifier Shelf Expiration Date Model / Serial / Lot Shoulder Replacement Left: Shoulder Procedures Procedure Name Priority Date/Time Associated Diagnosis Comments AK INJECTION 1 TENDON SHEATH/LIGAMENT APONEUROSIS Routine 10/02/2024 3:00 PM CDT Trigger index finger of left hand AK ARTHROCENTESIS ASPIR&/INJ SMALL JT/BURSA W/O US Routine 10/02/2024 3:00 PM CDT Arthritis of carpometacarpal (CMC) joint of right thumb SCREENING MAMMOGRAM BILATERAL W GREG Schedule Routine, Read Routine (OP Routine) 08/27/2024 1:33 PM CDT Screening mammogram, encounter for from Last 3 Months Results * AK INJECTION 1 TENDON SHEATH/LIGAMENT APONEUROSIS (10/02/2024 3:00 [...] IN CLINIC/BEDSIDE ORDERAB LES Final Result * AK ARTHROCENTESIS ASPIR&/INJ SMALL JT/BURSA W/O US (10/02/2024 [...] nal Result from Last 3 Months Insurance [facility] MED[facility] ADVANTAGE [facility] MED[facility] ADVANTAGE [employer] MEDICARE ADVANTAGE Advance Directives For more information, please contact: [phone] Documents on File Type Date Recorded Patient Yarding Engineer Expl anation ADVANCE DIRECTIVE 12/21/2018 12:00 AM [facility] TECH FINANCIAL/MEDICAL Care Teams Pneumatic Tool Repairer Relationship Specialty Start Date End Date Zhanna Cordero MD PCP - General Family Medicine 05/22/20
--- OUTSIDE RECORDS SUMMARY | 2024-10-29 15:29 | XMS_ITS | Encounter Summary ---
Author Organization [facility] Address [address] [facility] [place] [address] Care Team Providers Care Chemistry Laboratory Technician Name Role Phone Jung Regalado MD Unavailable [phone] Zhanna Cordero MD Primary Care Provider [phone] Encounter Details Date Type Department Care Team (Late st Contact Info) Description 02/07/2023 Lab Requisition [facility] - DermPath Lab [address] [facility], [place] [address] Hilaria Kaur DO [address] [facility] 3 [place] [address] Social History Tobacco Use Types Packs/Day Years [...] on file Legal Sex Female 6:18 AM STAFF NURSE Gender Identity Not on file Sexual Orientation Not on file documented as of this encounter Plan of Treatment Not on file documented as of this encounter Procedures Procedure Name Priority Date/Time Associated Diagnosis Comments DERMATOPATHOLOGY Routine 02/07/2023 9:31 AM STAFF NURSE documented in this encounter Results * DERMATOPATHOLOGY (02/07/2023 9:31 AM STAFF NURSE) Case Report Dermatopathology Report Case: [id number] Authorizing Provider: Hilaria Kaur DO Collected: 02/07/2023 09:31 AM Ordering Location: [facility] DermPath Lab Received: 02/08/2023 01:06 PM Pathologist: Hailee Su MD Specimens: A) - Skin, left hand B) - Skin, left lat LE C) - Skin, right wrist 10:50 AM [facility] DERMATOPATHOLOGY LABORATORY Final Diagnosis Specimen A. SKIN, left hand: SQUAMOUS CELL CARCINOMA, WELL DIFFERENTIATED (C44.629) Specimen B. SKIN, left lat LE: SQUAMOUS PROLIFERATION (D48.5) (see microscopic description and comment) Specimen C. SKIN, right wrist: ACTINIC KERATOSIS, LICHENOID (L57.0) 10:50 AM [facility] DERMATOPATHOLOGY LABORATORY at 1050 STAFF NURSE Clinical History A-C: R/O NMSC 10:50 AM [facility] DERMATOPATHOLOGY LABORATORY Gross [...] measuring 7x7x1 mm. Jar 0. 10:50 AM [facility] DERMATOPATHOLOGY LABORATORY Microscopic [...] some basal vacuolar alteration. 3 10:50 AM [facility] DERMATOPATHOLOGY LABORATORY Disclaimer An external and internal positive and negative controls are appropriate for the histochemical, immunohistochemical and immunofluorescence stain(s) in this case (if any), except where stated explicitly. The performance characteristics of the stain(s) cited in this report were developed and its performance characteristic determined by the Dermatopathology Laboratory at [facility], directed by Dr. Nica Diaz. These tests need not be, and therefore are not, approved by the [place] Food and Drug Administration. The tests are used for clinical purposes. Billing Codes Specimen Charges Stain Charges 23024 24062 94037 1 1 1 3 10:50 AM [facility] DERMATOPATHOLOGY LABORATORY Embedded Images 3 10:50 AM [facility] DERMATOPATHOLOGY LABORATORY Pathology/Cytology TISSUE SPECIMEN FROM SKIN / Unknown 02/07/2023 9:31 AM STAFF NURSE 02/08/2023 1:06 PM STAFF NURSE Miscellaneous samples (specimen) TISSUE SPECIMEN FROM SKIN / Unknown 02/07/2023 9:31 AM STAFF NURSE 02/08/2023 1:06 PM STAFF NURSE Miscellaneous samples (specimen) TISSUE SPECIMEN FROM SKIN / Unknown 02/07/2023 9:31 AM STAFF NURSE 02/08/2023 1:06 PM STAFF NURSE us Hilaria Kaur DO LAB - PATHOLOGY/CYTOLOGY ORDERABLES Final Result DERMATOPATHOLOGY LABORATORY [facility] - Department of Dermatology [facility] [address] [place] [address], [address] [phone] documented in this encounter Visit Diagnoses Not on filedocumented in this encounter Care Teams Chemistry Laboratory Technician Relationship Specialty Start Date End Date Zhanna Cordero MD [address] [place] [address] PCP - General 12/01/21 Jung Regalado MD [address] [place] [address] Family Medicine 03/16/10 documented as of this encounter
--- OUTSIDE RECORDS SUMMARY | 2024-10-29 15:29 | XMS_ITS | Encounter Summary ---
Author Organization [facility] Address [address] [place] [address] Care Team Providers Care Grinder Set Up Operator Internal Name Role Phone Jung Regalado MD Primary Care Provider [phone] Encounter Details Date Type Department Care Team (Latest Contact Info) Description 05/29/1999 Outpatient Historical HIS [facility] MICHELINE Gonzalez, Maged Pizano MD NO ADDRESS ON FILE Nonspecific abnormal findings on radiological or other examinations of the breast (Primary Dx) Social History Tobacco Use Types Packs/Day Years Used Date Smoking Tobacco: Never Assessed Comments Unknown Sex and Gender Information Value Date Recorded Sex Assigned at Not on file Legal Sex Female 4:20 AM EXTRACTOR OPERATOR SOLVENT PROCESS Gender Identity Not on file Sexual Orientation Not on file documented as of this encounter Plan of Treatment Not on file documented as of this encounter Visit Diagnoses Diagnosis Nonspecific abnormal findings on radiological or other examinations of the breast- Primary documented in this encounter Care Teams Grinder Set Up Operator Internal Relationship Specialty Start Date End Date Jung Regalado MD [address] [place] [address] PCP - General 01/20/09 documented as of this encounter
--- OUTSIDE RECORDS SUMMARY | 2024-10-29 15:29 | XMS_ITS | Encounter Summary ---
Author Organization [facility] Address [address] [place] [address] Care Team Providers Care Washcoat Wiper Name Role Phone Jung Regalado MD Primary Care Provider + [phone] Encounter Details Date Type Department Care Team (Latest Contact Info) Description 10/20/2006 Outpatient Historical HIS [facility] MICHELINE Gonzalez, Maged Pizano MD NO ADDRESS ON FILE Other Screening Mammogram (Primary Dx) Social History Tobacco Use Types Packs/Day Years Used Date Smoking Tobacco: Never Assessed Comments Unknown Sex and Gender Information Value Date Recorded Sex Assigned at Not on file Legal Sex Female 4:20 AM RECRUITMENT INTERN Gender Identity Not on file Sexual Orientation Not on file documented as of this encounter Plan of Treatment Not on file documented as of this encounter Visit Diagnoses Diagnosis Other screening mammogram- Primary documented in this encounter Care Teams Washcoat Wiper Relationship Specialty Start Date End Date Jung Regalado MD [address] [place] [address] PCP - General 01/20/09 documented as of this encounter
--- OUTSIDE RECORDS SUMMARY | 2024-10-29 15:29 | XMS_ITS | Encounter Summary ---
Author Organization [facility] Health Address [address] [facility] [place] [address] Care Team Providers Care Transit Planner Name Role Phone Jung Regalado MD Unavailable [phone] Zhanna Cordero MD Primary Care Provider [phone] Encounter Details Date Type Department Care Team (Late st Contact Info) Description 02/22/2024 Lab Requisition [facility] - DermPath Lab [address] [facility], [place] [address] Hilaria Kaur DO [address] [facility] 3 [place] [address] Social History Tobacco Use Types Packs/Day Years [...] and heating? Not hard at all 09/16/2023 [facility] [place] [facility] - Occupational Stress [...] place to sleep or slept in a skilled nursing (including now)? No 09/16/2023 Comments No Sex and Gender Information Value Date Recorded Sex Assigned at Not on file Legal Sex Female 6:18 AM WATERSHED TENDER Gender Identity Not on file Sexual [...] Diagnosis Comments DERMATOPATHOLOGY Routine 02/22/2024 8:43 AM WATERSHED TENDER documented in this encounter Results * DERMATOPATHOLOGY (02/22/2024 8:43 AM WATERSHED TENDER) Case Report Dermatopathology Report Case: [id number] Authorizing Provider: Hilaria Kaur DO Collected: 02/22/2024 08:43 AM Ordering Location: [facility] - Received: 02/22/2024 03:46 PM DermPath Lab Pathologist: Antonieta Zazueta MD Specimen: Skin, right upper arm 12:06 PM [facility] DERMATOPATHOLOGY LABORATORY Final Diagnosis Specimen A. SKIN, right upper arm: DERMAL SCAR RESIDUAL SQUAMOUS CELL CARCINOMA NOT IDENTIFIED (L90.5) 12:06 PM [facility] DERMATOPATHOLOGY LABORATORY at 1206 WATERSHED TENDER Clinical History Bx proven, R/O SCC 12:06 PM [facility] DERMATOPATHOLOGY LABORATORY Gross Description Specimen A: Received is one formalin filled container labeled with the patient's name and designated right upper arm. The specimen consists of a non-oriented ellipse of skin measuring 33j51a9 mm. The epidermal surface is unremarkable. The margin is inked green. The 12 o'clock and 6 o'clock tips are submitted in cassette 1. The remainder of the ellipse is serially sectioned and submitted in cassette 2. Jar 0. 4 12:06 PM [facility] DERMATOPATHOLOGY LABORATORY Microscopic Description Specimen A. SKIN, right upper arm: There are fibroblasts and collagen bundles oriented parallel to the skin surface. There are elongated blood vessels, some of which are oriented perpendicular to the skin surface. No residual squamous cell carcinoma is identified. 12:06 PM [facility] DERMATOPATHOLOGY LABORATORY Disclaimer An external and internal positive and negative controls are appropriate for the histochemical, immunohistochemical and immunofluorescence stain(s) in this case (if any), except where stated explicitly. The performance characteristics of the stain(s) cited in this report were developed and its performance characteristic determined by the Dermatopathology Laboratory at [facility], directed by Dr. Nica Diaz. These tests need not be, and therefore are not, approved by the [place] Food and Drug Administration. The tests are used for clinical purposes. Billing Codes Specimen Charges Stain Charges 02039 1 4 12:06 PM WATERSHED TENDER DERMATOPATHOLOGY LABORATORY Embedded Images 4 12:06 PM [facility] DERMATOPATHOLOGY LABORATORY Pathology/Cytolo gy TISSUE SPECIMEN FROM SKIN / Unknown 02/22/2024 8:43 AM WATERSHED TENDER 02/22/2024 3:46 PM WATERSHED TENDER us Hilaria Kaur DO LAB - PATHOLOGY/CYTOLOGY ORDERABLES Final Result DERMATOPATHOLOGY LABORATORY [facility] - Department of Dermatology [facility] [address] [place] [address], [address] [phone] documented in this encounter Visit Diagnoses Not on filedocumented in this encounter Care Teams Transit Planner Relationship Specialty Start Date End Date Zhanna Cordero MD [address] [place] [address] PCP - General 12/01/21 Jung Regalado MD [address] [place] [address] Family Medicine 03/16/10 documented as of this encounter
--- OUTSIDE RECORDS SUMMARY | 2024-10-29 15:29 | XMS_ITS | Continuity of Care Document ---
Author Organization [facility] Address [address] [place] [address] Phone Care Team Providers Care Land Mobile Radio Technician Name Role Phone Miguel Vernon MD Unavailable [...] Diagnoses Date Provider Providers Copied on Encounter [facility], [address], [place], [place], [id number], [place] tel:[phone] [facility] No Information 1 Saulo Rivera. [address] [place] [address], [id number], [place]. tel:[phone] [facility], [address], [place], [place], [id number], [place] tel:[phone] [facility] INTRINSIC ASTHMA NOSALLERGIC RHINITIS NEC 7 Saulo Rivera. [address], [id number], . [phone] [facility], [address], [place], [place], [address], tel:[phone] [facility] AC ATOPIC CONJUNCTIVITIS 6 Saulo Rivera. [address], [id number], . [phone] [facility] [facility], [address], [place], [place], [id number], tel:[phone] [facility] BENIGN HYPERTENSION 6 Conversion Doctor. [address] [place] [address], [address], . Family History Family Member Type Diagnosis [...]
--- OUTSIDE RECORDS SUMMARY | 2024-10-29 15:29 | XMS_ITS | Encounter Summary ---
Author Organization [facility] Address [address] [place] [address] Care Team Providers Care Safe And Vault Installer Name Role Phone Jung Regalado MD Primary Care Provider + [phone] Encounter Details Date Type Department Care Team (Latest Contact Info) Description 11/30/1999 Outpatient Historical HIS [facility] MICHELINE Diaz, Jung Jean-Baptiste MD [address] [address] Other specified disorder of breast (Primary Dx) Social History Tobacco Use Types Packs/Day Years Used Date Smoking Tobacco: Never Assessed Comments Unknown Sex and Gender Information Value Date Recorded Sex Assigned at Not on file Legal Sex Female 4:20 AM INVENTORY ASSISTANT Gender Identity Not on file Sexual Orientation Not on file documented as of this encounter Plan of Treatment Not on file documented as of this encounter Visit Diagnoses Diagnosis Other specified disorder of breast- Primary documented in this encounter Care Teams Safe And Vault Installer Relationship Specialty Start Date End Date Jung Regalado MD [address] [place] [address] PCP - General 01/20/09 documented as of this encounter
--- OUTSIDE RECORDS SUMMARY | 2024-10-29 15:29 | XMS_ITS | Encounter Summary ---
Author Organization [facility] Address [address] [place] [address] Care Team Providers Care Play Writer Name Role Phone Jung Regalado MD Primary Care Provider + [phone] Encounter Details Date Type Department Care Team (Latest Contact Info) Description 01/01/2008 Outpatient Historical HIS [facility] Maged Anne MD NO ADDRESS ON FILE Other Screening Mammogram Social History Tobacco Use Types Packs/Day Years Used Date Smoking Tobacco: Never Assessed Comments Unknown Sex and Gender Information Value Date Recorded Sex Assigned at Not on file Legal Sex Female 4:20 AM TANK BOTTOM ASSEMBLER Gender Identity Not on file Sexual [...] 01/02/2008 12:01 PM CDT [facility] [address] [facility] [place] [address] Admit Date: 01/01/2008 KAMRAN LAU Sex: F Admit Prov: MAGED ARDON Date: 1945 Primary Care Prov: CMRN: [id number] Room: ANG SSN: [id number] IMAGING SERVICES Ordering Prov: MAGED ARDON Accession Number: [id number] Interpretation BILATERAL SCREENING DIGITAL MAMMOGRAMS WITH COMPUTER [...] AMK Procedure Note Kristy Leon - 01/02/[address] [address] Admit Date: 01/01/2008 KAMRAN LAU Sex: F Admit Prov: MAGED ARDON Date: 1945 [facility] Prov: CMRN: [id number] Room: ANG SSN: [id number] IMAGING SERVICES Ordering Prov: MAGED ARDON Interpretation [...] mammogram documented in this encounter Care Teams Play Writer Relationship Specialty Start Date End Date Jung Regalado MD [address] [place] [address] PCP - General 01/20/09 documented as of this encounter
--- OUTSIDE RECORDS SUMMARY | 2024-10-29 15:29 | XMS_ITS | Encounter Summary ---
Author Organization [employer] Address [address] [place] [address] Care Team Providers Care Tree Deadener Name Role Phone Jung Regalado MD Primary Care Provider + [phone] Encounter Details Date Type Department Care Team (Latest Contact Info) Description 07/24/2004 Inpatient Historical HIS [facility] Maged Gonzalez MD NO ADDRESS ON FILE BENIGN NEOPLASM OVARY (Primary Dx) Social History Tobacco Use Types Packs/Day Years Used Date Smoking Tobacco: Never Assessed Comments Unknown Sex and Gender Information Value Date Recorded Sex Assigned at Not on file Legal Sex Female 4:20 AM SENIOR CONTROL SYSTEMS ENGINEER Gender Identity Not on file Sexual [...] URINE ORDERABLES Final Result Performing Organization Address [facility] Phone Number INTERFACE SYSTEM Refer to [...] ORDERABLES Final R esult Performing Organization Address [facility] Phone Number INTERFACE SYSTEM Refer to [...] ORDERABLES Final R esult Performing Organization Address City/State/[facility] Co de Phone Number INTERFACE SYSTEM Refer to clinic/hospital department * HEMOGLOBIN AND HEMATOCRIT (07/20/2004 9:52 AM CDT) HEMOGLOBIN 14.0 11.8 - 14.8 g/dL INTERFACE SYSTEM HEMATOCRIT 40.4 35.5 - 44.0 % INTERFACE SYSTEM 07/20/2004 9:52 AM CDT Maged Gonzalez MD HEMATOLOGY ORDERABLES Final R esult Performing Organization Address City/State/[facility] Co de Phone Number INTERFACE SYSTEM [...] Primary documented in this encounter Care Teams Tree Deadener Relationship Specialty Start Date End Date Jung Regalado MD [address] [place] [address] PCP - General 01/20/09 documented as of this encounter
--- OUTSIDE RECORDS SUMMARY | 2024-10-29 15:29 | XMS_ITS | Encounter Summary ---
Author Organization [facility] Address [address] [facility] [place] [address] Care Team Providers Care City Plant Supervisor Name Role Phone Jung Regalado MD Unavailable [phone] Zhanna Cordero MD Primary Care Provider [phone] Encounter Details Date Type Department Care Team (Late st Contact Info) Description 02/23/2023 Lab Requisition [facility] - DermPath Lab [address] [facility] [place] [address] Janis Santiago MD [address] [place] [address] Social History Tobacco Use Types [...] on file Legal Sex Female 6:18 AM IT SALES CONSULTANT Gender Identity Not on file Sexual Orientation Not on file documented as of this encounter Plan of Treatment Not on file documented as of this encounter Procedures Procedure Name Priority Date/Time Associated Diagnosis Comments DERMATOPATHOLOGY Routine 02/23/2023 1:27 PM IT SALES CONSULTANT documented in this encounter Results * DERMATOPATHOLOGY (02/23/2023 1:27 PM IT SALES CONSULTANT) Case Report Dermatopathology Report Case: [id number] Authorizing Provider: Janis Santiago MD Collected: 02/23/2023 01:27 PM Ordering Location: [facility] DermPath Lab Received: 02/24/2023 07:38 AM Pathologist: Antonieta Zazueta MD Specimen: Skin, left middle finger 3 4:44 PM [facility] DERMATOPATHOLOGY LABORATORY Final Diagnosis Specimen A. SKIN, left middle finger: SQUAMOUS CELL CARCINOMA, WELL DIFFERENTIATED (C44.629) (see microscopic description) 3 4:44 PM [facility] DERMATOPATHOLOGY LABORATORY at 1644 IT SALES CONSULTANT Clinical History R/O SCC 3 4:44 PM [facility] DERMATOPATHOLOGY LABORATORY Gross Description Specimen A: Received is one formalin filled container labeled with the patient's name and designated left middle finger. The specimen consists of a shave biopsy measuring 4x3x1 mm. Jar 0. 3 4:44 PM [facility] DERMATOPATHOLOGY LABORATORY Microscopic Description Specimen A. SKIN, left middle finger: Arising in the epidermis and extending into the dermis there are irregularly shaped aggregates of keratinocytes showing evidence of premature cornification. A focus in which basaloid nests are observed is negative for BerEp4 and is lost on deeper level sections. 3 4:44 PM [facility] DERMATOPATHOLOGY LABORATORY Disclaimer An external and internal positive and negative controls are appropriate for the histochemical, immunohistochemical and immunofluorescence stain(s) in this case (if any), except where stated explicitly. The performance characteristics of the stain(s) cited in this report were developed and its performance characteristic determined by the Dermatopathology Laboratory at [facility], directed by Dr. Nica Diaz. These tests need not be, and therefore are not, approved by the [place] Food and Drug Administration. The tests are used for clinical purposes. Billing Codes Specimen Charges Stain Charges 53364 1 72513 1 3 4:44 PM IT SALES CONSULTANT DERMATOPATHOLOGY LABORATORY Embedded Images 3 4:44 PM IT SALES CONSULTANT DERMATOPATHOLOGY LABORATORY Pathology/Cytolo gy TISSUE SPECIMEN FROM SKIN / Unknown 02/23/2023 1:27 PM IT SALES CONSULTANT 02/24/2023 7:38 AM IT SALES CONSULTANT Janis Santiago MD LAB - PATHOLOGY/CYTOLOGY ORDERA BLES Final Result DERMATOPATHOLOGY LABORATORY [facility] - Department of Dermatology [facility] [address] [place] [address], [address] [phone] documented in this encounter Visit Diagnoses Not on filedocumented in this encounter Care Teams City Plant Supervisor Relationship Specialty Start Date End Date Zhanna Cordero MD [address] [place] [address] PCP - General 12/01/21 Jung Regalado MD [address] [place] [address] Family Medicine 03/16/10 documented as of this encounter
== END 2024-10-29 16:01 | disposition home or self-care (01) ==
PROVIDERS: General Practice; Emergency Provider Student in an Organized Health Care Education/Training Program; PCP Family Medicine
DX: I48.0 Paroxysmal atrial fibrillation (principal); R53.1 Weakness; T50.905A Adverse effect of unspecified drugs, medicaments and biological substances, initial encounter; I12.9 Hypertensive chronic kidney disease with stage 1 through stage 4 chronic kidney disease, or unspecified chronic kidney disease; N18.30 Chronic kidney disease, stage 3 unspecified; F41.9 Anxiety disorder, unspecified
CPT/HCPCS: 36415; 71046; 80053; 81003; 83690; 84484; 85025; 85610; 85730; 93005; 99284; A9270

== ENCOUNTER 2024-12-18 09:55 | Outpatient (CLI) | payer MEDICARE, SELFPAY ==
--- NOTE | ~2024-12-18 | US_ITS ---
Clinical history:Nontoxic single thyroid nodule. EXAM:Ultrasound. TECHNIQUE:Multiple static grayscale images and color Doppler images were obtained. Comparisons:None available at this time FINDINGS: Right thyroid lobe is heterogeneous and measures 4.7 x 2.5 x 2.0 cm. Prominent vascular flow. Left thyroid lobe is heterogeneous and measures 3.1 x 1.2 x 1.1 cm. Prominent vascular flow. Isthmus is heterogeneous and measures 0.6 cm. Prominent vascular flow. There is a 1.0 x 0.7 x 0.5 cm solid hypoechoic nodule in the right thyroid lobe. The nodule is partially calcified. TR 5. There is a 1.0 x 0.8 x 0.5 cm solid hypoechoic nodule in the isthmus. Tear 4. IMPRESSION: 1. There is a 1.0 cm partially calcified nodule in the right thyroid lobe. A fine-needle aspiration is recommended. 2. There is a 1.0 cm left thyroid nodule. A follow-up thyroid ultrasound in 6 months is recommended. 3.The thyroid gland is heterogeneous with prominent vascular flow. Consider thyroiditis. Reviewed, dictated and finalized at location Q. IMPRESSION: 1. There is a 1.0 cm partially calcified nodule in the right thyroid lobe. A fi ne-needle aspiration is recommended. 2. There is a 1.0 cm left thyroid nodule. A follow-up thyroid ultrasound in 6 m [facility] is recommended. 3.The thyroid gland is heterogeneous with prominent vascular flow. Consider thy roiditis.
--- OUTSIDE RECORDS SUMMARY | 2024-12-18 10:41 | XMS_ITS | Encounter Summary ---
Author Organization [facility] Address [address] [facility] [place] [address] Care Team Providers Care Lumber Straightened Name Role Phone Jung Regalado MD Unavailable [phone] Zhanna Cordero MD Primary Care Provider [phone] Encounter Details Date Type Department Care Team (Late st Contact Info) Description 02/07/2023 Lab Requisition [facility] - DermPath Lab [address] [facility], [place] [address] Hilaria Kaur DO [address] [facility] 3 [place] [address] Social History Tobacco Use Types Packs/Day Years [...] on file Legal Sex Female 6:18 AM HRIS SPECIALIST Gender Identity Not on file Sexual Orientation Not on file documented as of this encounter Plan of Treatment Upcoming Encounters Date Type Department Care Team (Late st Contact Info) Description 02/28/2025 12:00 PM HRIS SPECIALIST Office Visit [facility] - Neurology [address] [facility] [place] [address] Steven Vaughan MD [address] [facility] 1L [place] [address] documented as of this encounter Procedures Procedure Name Priority Date/Time Associated Diagnosis Comments DERMATOPATHOLOGY Routine 02/07/2023 9:31 AM HRIS SPECIALIST documented in this encounter Results * DERMATOPATHOLOGY (02/07/2023 9:31 AM HRIS SPECIALIST) Case Report Dermatopathology Report Case: [id number] Authorizing Provider: Hilaria Kaur DO Collected: 02/07/2023 09:31 AM Ordering Location: [facility] DermPath Lab Received: 02/08/2023 01:06 PM Pathologist: Hailee Su MD Specimens: A) - Skin, left hand B) - Skin, left lat LE C) - Skin, right wrist 10:50 AM [facility] DERMATOPATHOLOGY LABORATORY Final Diagnosis Specimen A. SKIN, left hand: SQUAMOUS CELL CARCINOMA, WELL DIFFERENTIATED (C44.629) Specimen B. SKIN, left lat LE: SQUAMOUS PROLIFERATION (D48.5) (see microscopic description and comment) Specimen C. SKIN, right wrist: ACTINIC KERATOSIS, LICHENOID (L57.0) 10:50 AM [facility] DERMATOPATHOLOGY LABORATORY at 1050 HRIS SPECIALIST Clinical History A-C: R/O NMSC 10:50 AM [facility] DERMATOPATHOLOGY LABORATORY Gross Description Specimen A: Received [...] measuring 7x7x1 mm. Jar 0. 10:50 AM [facility] [...] apoptotic keratinocytes and some basal vacuolar alteration. 10:50 AM [facility] DERMATOPATHOLOGY LABORATORY Disclaimer An external and internal positive and negative controls are appropriate for the histochemical, immunohistochemical and immunofluorescence stain(s) in this case (if any), except where stated explicitly. The performance characteristics of the stain(s) cited in this report were developed and its performance characteristic determined by the Dermatopathology Laboratory at [facility], directed by Dr. Nica Diaz. These tests need not be, and therefore are not, approved by the [place] Food and Drug Administration. The tests are used for clinical purposes. Billing Codes Specimen Charges Stain Charges 39467 22989 98557 1 1 1 3 10:50 AM [facility] DERMATOPATHOLOGY LABORATORY Embedded Images 10:50 AM [facility] DERMATOPATHOLOGY LABORATORY Pathology/Cytology TISSUE SPECIMEN FROM SKIN / Unknown 02/07/2023 9:31 AM HRIS SPECIALIST 02/08/2023 1:06 PM HRIS SPECIALIST Miscellaneous samples (specimen) TISSUE SPECIMEN FROM SKIN / Unknown 02/07/2023 9:31 AM HRIS SPECIALIST 02/08/2023 1:06 PM HRIS SPECIALIST Miscellaneous samples (specimen) TISSUE SPECIMEN FROM SKIN / Unknown 02/07/2023 9:31 AM HRIS SPECIALIST 02/08/2023 1:06 PM HRIS SPECIALIST us Hilaria Kaur DO LAB - PATHOLOGY/CYTOLOGY ORDERABLES Final Result DERMATOPATHOLOGY LABORATORY [facility] - Department of Dermatology [facility] Specialized Medicine [address] [place] [address], [address] Floor [address] [phone] documented in this encounter Visit Diagnoses Not on filedocumented in this encounter Care Teams Lumber Straightened Relationship Specialty Start Date End Date Zhanna Cordero MD [address] [place] [address] PCP - General 12/01/21 Jung Regalado MD [address] [place] [address] Family Medicine 03/16/10 documented as of this encounter
--- OUTSIDE RECORDS SUMMARY | 2024-12-18 10:41 | XMS_ITS | Encounter Summary ---
Author Organization [facility] Address [address] [place] [address] Care Team Providers Care Coil Cleaner Name Role Phone Jung Regalado MD Primary Care Provider + [phone] Encounter Details Date Type Department Care Team (Latest Contact Info) Description 08/28/2001 Outpatient Historical HIS [facility] Gonzalez, Maged Pizano MD NO ADDRESS ON FILE DIFFUS CYSTIC MASTOPATHY (Primary Dx) Social History Tobacco Use Types Packs/Day Years Used Date Smoking Tobacco: Never Assessed Comments Unknown Sex and Gender Information Value Date Recorded Sex Assigned at Not on file Legal Sex Female 4:20 AM HEALTH CLUB ATTENDANT Gender Identity Not on file Sexual Orientation Not on file documented as of this encounter Plan of Treatment Not on file documented as of this encounter Visit Diagnoses Diagnosis Diffuse cystic mastopathy- Primary documented in this encounter Care Teams Coil Cleaner Relationship Specialty Start Date End Date Jung Regalado MD [address] [place] [address] PCP - General 01/20/09 documented as of this encounter
--- OUTSIDE RECORDS SUMMARY | 2024-12-18 10:41 | XMS_ITS | Encounter Summary ---
Author Organization [facility] Address [address] [place] [address] Care Team Providers Care Recruiter Coordinator Name Role Phone Jung Regalado MD Unavailable [phone] Zhanna Cordero MD Primary Care Provider [phone] Encounter Details Date Type Department Care Team (Late st Contact Info) Description 02/23/2023 Lab Requisition [facility] - DermPath Lab [address] [facility], [facility] [place] [address] Janis Santiago MD [address] [place] [address] Social History Tobacco Use Types [...] on file Legal Sex Female 6:18 AM COMPUTER EDUCATION PROFESSOR Gender Identity Not on file Sexual Orientation Not on file documented as of this encounter Plan of Treatment Upcoming Encounters Date Type Department Care Team (Late st Contact Info) Description 02/28/2025 12:00 PM COMPUTER EDUCATION PROFESSOR Office Visit [facility] - Neurology [address] [facility], [place] [address] Steven Vaughan MD [address] [facility] 1L [place] [address] documented as of this encounter Procedures Procedure Name Priority Date/Time Associated Diagnosis Comments DERMATOPATHOLOGY Routine 02/23/2023 1:27 PM COMPUTER EDUCATION PROFESSOR documented in this encounter Results * DERMATOPATHOLOGY (02/23/2023 1:27 PM COMPUTER EDUCATION PROFESSOR) Case Report Dermatopathology Report Case: [id number] Authorizing Provider: Janis Santiago MD Collected: 02/23/2023 01:27 PM Ordering Location: [facility] DermPath Lab Received: 02/24/2023 07:38 AM Pathologist: Antonieta Zazueta MD Specimen: Skin, left middle finger 3 4:44 PM [facility] DERMATOPATHOLOGY LABORATORY Final Diagnosis Specimen A. SKIN, left middle finger: SQUAMOUS CELL CARCINOMA, WELL DIFFERENTIATED (C44.629) (see microscopic description) 3 4:44 PM [facility] DERMATOPATHOLOGY LABORATORY at 1644 COMPUTER EDUCATION PROFESSOR Clinical History R/O SCC 3 4:44 PM [facility] DERMATOPATHOLOGY LABORATORY Gross Description Specimen A: Received is one formalin filled container labeled with the patient's name and designated left middle finger. The specimen consists of a shave biopsy measuring 4x3x1 mm. Jar 0. 3 4:44 PM [facility] DERMATOPATHOLOGY LABORATORY Microscopic Description Specimen A. SKIN, left middle finger: Arising in the epidermis and extending into the dermis there are irregularly shaped aggregates of keratinocytes showing evidence of premature cornification. A focus in which basaloid nests are observed is negative for BerEp4 and is lost on deeper level sections. 3 4:44 PM [facility] DERMATOPATHOLOGY LABORATORY Disclaimer An external [...] purposes. Billing Codes Specimen Charges Stain Charges 02999 1 70445 1 3 4:44 PM COMPUTER EDUCATION PROFESSOR DERMATOPATHOLOGY LABORATORY Embedded Images 3 4:44 PM COMPUTER EDUCATION PROFESSOR DERMATOPATHOLOGY LABORATORY Pathology/Cytolo gy TISSUE SPECIMEN FROM SKIN / Unknown 02/23/2023 1:27 PM COMPUTER EDUCATION PROFESSOR 02/24/2023 7:38 AM COMPUTER EDUCATION PROFESSOR Janis Santiago MD LAB - PATHOLOGY/CYTOLOGY ORDERA BLES Final Result DERMATOPATHOLOGY LABORATORY [facility] - Department of Dermatology [facility] Medicine [address] [place] [address], [address] [phone] documented in this encounter Visit Diagnoses Not on filedocumented in this encounter Care Teams Recruiter Coordinator Relationship Specialty Start Date End Date Zhanna Cordero MD [address] [place] [address] PCP - General 12/01/21 Jung Regalado MD [address] [place] [address] Family Medicine 03/16/10 documented as of this encounter
--- OUTSIDE RECORDS SUMMARY | 2024-12-18 10:41 | XMS_ITS | Encounter Summary ---
Author Organization [facility] Address 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
--- OUTSIDE RECORDS SUMMARY | 2024-12-18 10:41 | XMS_ITS | Encounter Summary ---
Author Organization [facility] Address 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
--- OUTSIDE RECORDS SUMMARY | 2024-12-18 10:41 | XMS_ITS | Encounter Summary ---
Author Organization [facility] Address 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
--- OUTSIDE RECORDS SUMMARY | 2024-12-18 10:41 | XMS_ITS | Encounter Summary ---
Author Organization [employer] Address [address] [place] [address] Care Team Providers Care Loom Setter Fourdrinier Name Role Phone Jung Regalado MD Primary Care Provider + [phone] Encounter Details Date Type Department Care Team (Late st Contact Info) Description 07/20/2004 Outpatient Historical [facility] Support Serv. (Adt Cardiology-[facility]) [address] 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
--- OUTSIDE RECORDS SUMMARY | 2024-12-18 10:41 | XMS_ITS | Encounter Summary ---
Author Organization [facility] Address 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
--- OUTSIDE RECORDS SUMMARY | 2024-12-18 10:41 | XMS_ITS | Encounter Summary ---
Author Organization [facility] Address 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
--- OUTSIDE RECORDS SUMMARY | 2024-12-18 10:41 | XMS_ITS | Clinical Summary ---
Author Organization [facility] Address [address] [place] [address] Care Team Providers Care Collar Baster Name Role Phone Zhanna Cordero MD Primary Care Provider [phone] Allergies No known active allergies Medications acyclovir [...] (10/09/2019): Added automatically from request for surgery [id number] Chronic pain of left knee 11/17/2018 Chronic [...] Description 10/02/2024 3:00 PM CDT Office Visit [facility] Medicine Orthopaedic Surgery [address] [facility] 2nd Floor [address] [place] [address] Shree Ramos MD Arthritis of carpometacarpal (CMC) joint of right thumb (Primary Dx); Trigger index finger of left hand from Last 3 Months Surgical History Surgery Date Site/Laterality Comments GA TOTAL ABDOMINAL HYSTERECT W/WO RMVL TUBE OVARY Hysterectomy - (Added by TW Conv) GA ARTHROPLASTY GLENOHUMERAL JOINT TOTAL SHOULDER Left Shoulder [...] reflux disease) Osteoporosis Cataract Heart disease Afib 2020 Rheumatic fever Childhood Family History Medical History Relation Name Comments Arthritis Brother 1 Rodolfo bolesis Arthritis Brother 2 Sheree gojoseos Arthritis Father Urban zarco Cancer Father Urban bolesos colon Heart disease [...] on file Legal Sex Female 11:28 AM STUNNER Gender Identity Female 06/30/2022 6:11 AM CDT [...] 36.6 C (97.8 F) 01/22/2020 11:10 AM STUNNER Respiratory Rate 20 01/31/2020 10:46 AM STUNNER Oxygen Saturation 97% 11/08/2023 10:01 AM CDT [...] history exists Medical Devices Implanted Type Area Proj Engineer Device Identifier Shelf Expiration Date Model / Serial / Lot Shoulder Replacement Left: Shoulder Procedures Procedure Name Priority Date/Time Associated Diagnosis Comments GA INJECTION 1 TENDON SHEATH/LIGAMENT APONEUROSIS Routine 10/02/2024 3:00 PM CDT Trigger index finger of left hand GA ARTHROCENTESIS ASPIR&/INJ SMALL JT/BURSA W/O US Routine 10/02/2024 3:00 PM CDT Arthritis of carpometacarpal (CMC) joint of right thumb SCREENING MAMMOGRAM BILATERAL W GREG Schedule Routine, Read Routine (OP Routine) 08/27/2024 1:33 PM CDT Screening mammogram, encounter for from Last 3 Months or Most Recently Relevant to Health Maintenance Results * GA INJECTION 1 TENDON SHEATH/LIGAMENT APONEUROSIS (10/02/2024 3:00 [...] reaction. The patient wished to proceed. us Shere Ramos MD IN CLINIC/BEDSIDE ORDERAB LES Final Result * GA ARTHROCENTESIS ASPIR&/INJ SMALL JT/BURSA W/O US (10/02/2024 3:00 PM CDT) Shree Garsia MD - 10/02/2024 3:00 PM CDT Shree [...] performed with an alcohol and Betadine preparation. Shree Ramos MD IN CLINIC/BEDSIDE ORDERAB LES [...] breast. There has been no suspicious change. Self Screening Mammogram IMG MAMMO PROCEDURES Fi nal Result from Last 3 Months or Most Recently Relevant to Health Maintenance Insurance [facility] MEDICARE ADVANTAGE [place] [id number] [place] [address] MEDICARE ADVANTAGE [employer] MEDICARE ADVANTAGE [place] [id number] Advance Directives For more information, please contact: [phone] Documents on File Type Date Recorded Patient Nut Threader Expl anation ADVANCE DIRECTIVE 12/21/2018 12:00 AM [facility] ER OF AMMUNITION STOREKEEPER FINANCIAL/MEDICAL Care Teams Collar Baster Relationship Specialty Start Date End Date Zhanna Cordero MD PCP - General Family Medicine 05/22/20
--- OUTSIDE RECORDS SUMMARY | 2024-12-18 10:41 | XMS_ITS | Encounter Summary ---
Author Organization [facility] Address 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
--- OUTSIDE RECORDS SUMMARY | 2024-12-18 10:41 | XMS_ITS | Encounter Summary ---
Author Organization [facility] Address [address] [place] [address] Care Team Providers Care Molder Inflated Ball Name Role Phone Zhanna Cordero MD Primary Care Provider [phone] Encounter Details Date Type Department Care Team (Late Contact Info) Description 10/24/2024 Results Follow-Up [facility], [address] [place] [address] Ayesha Gee RN CTA CORONARY W SCORING Social History Tobacco Use Types Packs/Day Years Used Date Smoking Tobacco: Never Assessed Comments Unknown Sex and Gender Information Value Date Recorded Sex Assigned at Female 10/22/2024 12:38 PM CDT Legal Sex Female 10:22 PM SPEECH COMMUNICATION INSTRUCTOR Gender Identity Not on file Sexual Orientation Not on file documented as of this encounter Plan of Treatment Upcoming Encounters Date Type Department Care Team (Late st Contact Info) Description 02/22/2025 10:00 AM SPEECH COMMUNICATION INSTRUCTOR Office Visit [facility] [address] Aram Garcia MD [facility] [address] [place] [address] documented as of this encounter Visit Diagnoses Not on filedocumented in this encounter Care Teams Molder Inflated Ball Relationship Specialty Start Date End Date Zhanna Cordero MD [address] [place] [address] PCP - General FAMILY PRACTICE 11/25/23 documented as of this encounter
--- OUTSIDE RECORDS SUMMARY | 2024-12-18 10:41 | XMS_ITS | Encounter Summary ---
Author Organization [facility] Address 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
--- OUTSIDE RECORDS SUMMARY | 2024-12-18 10:41 | XMS_ITS | Encounter Summary ---
Author Organization [facility] Address [address] [place] [address] Care Team Providers Care Expenditure Requisition Clerk Name Role Phone Zhanna Cordero MD Primary Care Provider [phone] Encounter Details Date Type Department Care Team (Late st Contact Info) Description 11/06/2024 Results Follow-Up [facility] [address] [place] [address] Licha Maya RN FFR HEARTFLOW CTA CORONARY POST PROCESSING Social History Tobacco Use Types Packs/Day Years Used Date Smoking Tobacco: Never Assessed Comments Unknown Sex and Gender Information Value Date Recorded Sex Assigned at Female 10/22/2024 12:38 PM CDT Legal Sex Female 10:22 PM IT DATA ARCHITECT Gender Identity Not on file Sexual Orientation Not on file documented as of this encounter Plan of Treatment Upcoming Encounters Date Type Department Care Team (Late st Contact Info) Description 02/22/2025 10:00 AM IT DATA ARCHITECT Office Visit [facility] [phone] Aram Garcia MD Three [facility] [address] [place], [place] [phone] documented as of this encounter Visit Diagnoses Not on filedocumented in this encounter Care Teams Expenditure Requisition Clerk Relationship Specialty Start Date End Date Zhanna Cordero MD [address] [place], [place] [phone] PCP - General FAMILY PRACTICE 11/25/23 documented as of this encounter
--- OUTSIDE RECORDS SUMMARY | 2024-12-18 10:41 | XMS_ITS | Encounter Summary ---
Author Organization [facility] Address [address] [place] [address] Care Team Providers Care Sanitary Landfill Operator Name Role Phone Jung Regalado MD Primary Care Provider + [phone] Encounter Details Date Type Department Care Team (Latest Contact Info) Description 05/29/1999 Outpatient Historical HIS [facility] MICHELINE Gonzalez, Maged Pizano MD NO ADDRESS ON FILE Nonspecific abnormal findings on radiological or other examinations of the breast (Primary Dx) Social History Tobacco Use Types Packs/Day Years Used Date Smoking Tobacco: Never Assessed Comments Unknown Sex and Gender Information Value Date Recorded Sex Assigned at Not on file Legal Sex Female 4:20 AM COORDINATOR OF LIBRARY SERVICES Gender Identity Not on file Sexual Orientation Not on file documented as of this encounter Plan of Treatment Not on file documented as of this encounter Visit Diagnoses Diagnosis Nonspecific abnormal findings on radiological or other examinations of the breast- Primary documented in this encounter Care Teams Sanitary Landfill Operator Relationship Specialty Start Date End Date Jung Regalado MD [address] [place] [address] PCP - General 01/20/09 documented as of this encounter
--- OUTSIDE RECORDS SUMMARY | 2024-12-18 10:41 | XMS_ITS | Clinical Summary ---
Author Organization [facility] Address [address] [place] [address] Care Team Providers Care Property Custodian Name Role Phone Zhanna Cordero MD Primary Care Provider [phone] Allergies No known active allergies Medications ELIQUIS [...] 3 (three) times daily as needed. Active potassium chloride CR (MICRO-K) 10 MEQ [...] mouth daily. 90 capsule 3 4 Active oxybutynin XL (DITROPAN-XL) 10 MG 24 hr tablet 5 Active nystatin (MYCOSTATIN) powder APPLY TWICE DAILY TO SKIN FOLDS NEEDED 5 Active metoprolol tartrate (LOPRESSOR) 50 MG tablet Take 1 tablet (50mg) 1 hour prior to CTA 10/22/2024 1 tablet 5 Active Active Problems Problem Noted Date Diagnosed Date Persistent atrial fibrillation ([facility]) 08/23/2024 Encounters Date Type Department Care Team Description 11/06/2024 Results Follow-[place] [facility] [place] [address] Licha Maya RN FFR HEARTFLOW CTA CORONARY POST PROCESSING 11/05/2024 - 11/05/2024 11:59 PM CDT Hospital Encounter [facility] [address] Maged Raya MD Discharge Disposition: Home or Self Care (Routine Discharge) 11/02/2024 Travel 10/29/2024 Orders [place] [facility] [address] Maged Raya MD 10/24/2024 Results Follow-Up [facility] [address] [address] Ayesha Gee RN CTA CORONARY W SCORING 10/22/2024 12:40 PM CDT - 10/22/2024 11:59 PM CDT Hospital Encounter [facility] [address] Maged Raya MD Discharge Disposition: Home or Self Care (Routine Discharge) 10/22/2024 Travel 10/18/2024 Telephone [facility] [address] [address] Aram Garcia MD Medication (METOPROLOL TARTRATE) 10/18/2024 Telephone [facility] [address] [address] Aram Garcia MD Medication (metorprolol) 10/17/2024 [facility] Documentation [facility] THREE [facility] [address] [place] [address] Ralf Abdalla MD PERC Study 10/16/2024 [facility] Documentation [facility] THREE [facility] [address] [place] [address] Ralf Abdalla MD Research (PERC Ruben AF trial ) from Last 3 Months Social History Tobacco Use Types Packs/Day Years Used Date Smoking Tobacco: Never Assessed Comments Unknown Sex and Gender Information Value Date Recorded Sex Assigned at Female 10/22/2024 12:38 PM CDT Legal Sex Female 10:22 PM 1ST PRESSMAN Gender Identity Not on file Sexual Orientation Not on file Last Filed Vital Signs Vital Sign Reading Time Taken Comments Blood Pressure 102/64 08/24/2024 11:21 AM CDT Pulse 61 08/24/2024 11:21 AM CDT Temperature - - Respiratory Rate - - Oxygen Saturation 95% 08/24/2024 11: 21 AM CDT Inhaled Oxygen Concentration - - Weight 83.3 kg (183 lb 11.2 oz) 025 11:21 AM CDT Height 156.2 cm (5' 1.5) 08/24/2024 11 :21 AM CDT Body Mass Index 34.15 08/24/2024 11:21 AM CDT Plan of Treatment Upcoming Encounters Date Type Department Care Team (Late st Contact Info) Description 02/22/2025 10:00 AM 1ST PRESSMAN Office Visit [facility] [address] Aram Garcia MD Three [facility] [address] [place] [address] Health Maintenance Due Date Last Done Comments Hepatitis C 12/08/1965 DTaP, Tdap and Td Vaccines (1 - Tdap) 12/08/1966 Pneumococcal Vaccine: 50+ Years (1 of 1 - PCV) 12/08/1997 Annual Medicare Wellness Visit 12/08/2012 COVID-19 Vaccine ( season) 2024 03/19/2021, 03/18/2021, 05/21/2020, Additional history exists Zoster Vaccines Completed 02/23/2021, 12/02/2020 RSV Immunization or 60+ Years Completed 12/22/2022 Dexa Scan (General) Completed 07/19/2023, 07/19/2023, 07/15/2022, Additional history exists Meningococcal B Vaccine Aged Out No l onger eligible based on patient's age to complete this topic Meningococcal Vaccine Aged Out No edgar amanda eligible based on patient's age to complete this topic RSV Immunizations Under 20 Months Aged Out No longer eligible based on patient's age to complete this topic Procedures Procedure Name Priority Date/Time Associated Diagnosis Comments FFR HEARTFLOW CTA CORONARY POST PROCESSING Routine 11/02/2024 3:08 PM CDT Abnormal findings on diagnostic imaging of heart and coronary circulation CTA CORONARY W SCORING Routine 10/22/2024 1:27 PM CDT Precordial pain from Last 3 Months Results * FFR HEARTFLOW CTA CORONARY POST PROCESSING (11/02/2024 3:08 PM CDT) Anatomical Region Laterality Modality NA Computed Tomogra phy Narrative 11/05/2024 7:16 PM CDT FFRCT Patient Name: Saima Lau : 1945 Date of FFR: 11-05-2024 Date of CTA: 10-22-2024 Interpreting Radio Equipment Installer: MAGED RAYA M.D. Indication: Abnormal coronary CTA TECHNIQUE: Computed tomography was performed along the axial plane with 0.75 mm slice thickness utilizing IV administration of Isovue 370. LEFT ANTERIOR DESCENDING: The mid left anterior descending has an FFRCT value of 0.94. LEFT CIRCUMFLEX ARTERY: SECOND OBTUSE MARGINAL The second obtuse marginal has an FFRCT value of 0.98. RIGHT CORONARY ARTERY: POSTEROLATERAL BRANCH The posterolateral branch has an FFRCT value of 0.96. FFR IMPRESSION: Anatomical stenosis with lesion-specific FFRCT >0.80. Consider medical therapy as front-line strategy. Electronically signed by MAGED RAYA M.D. 11/05/2024 3:47 PM Maged Raya MD CT Final Result * CTA CORONARY W SCORING (10/22/2024 1:27 PM CDT) Anatomical Region Laterality Modality Chest Computed Tomogra phy, Radiographic Imaging 10/23/2024 4:27 PM CDT Addenda Addendum by Maged Raya MD on 10/29/2024 6:[address] ANGIOGRAM (Cardiology Portion) Patient Name: Saima Lau : 1945 Date of Study: 10-22-2024 Interpreting Radio Equipment Installer: MAGED RAYA M.D. Indication: Chest pain History: 78-year-old female with hypertension, atrial fibrillation, dyspnea on exertion, fatigue PRE PROCEDURE DATA: Baseline heart rate is 57 beats per minute. Blood pressure is 161/72 mmHg. A 20 gauge Heplock was inserted in the right antecubital vein and flushed with a 0.9 NACL. PROCEDURE DATA: Baseline heart rate is 50 beats per minute. Medication totals: Metoprolol 0 mg IVP Nitroglycerin sublingual tab times 2 Isovue contrast total is 80 ml followed by a flush of 0.9 normal saline 50 ml POST PROCEDURE DATA: Post procedure heart rate is 59 beats per minute. Blood pressure is 111/65 mmHg. Patient tolerated procedure well. IV access discontinued and band aide dressing applied to site. TECHNIQUE: Computed tomography was performed along the axial plane with 0.75 mm slice thickness utilizing IV administration of Isovue 370. FINDINGS: The coronary calcium score is 0 off axis image, but mild calcified plaque visible proximal, mid LAD. The aortic valve calcium score is 0. The quality of the study is good. CARDIAC STRUCTURES: Left Atrium: Mildly enlarged. Left Atrial Appendage: Cauliflower morphology. There is no apparent left atrial appendage filling defect. Intra-atrial Septum: Normal. Left Ventricle: Cavity is normal in size. Concentric left ventricular hypertrophy: None. Left ventricular ejection fraction: 73%. Wall motion: Normal. No stigmata of prior infarction. No abnormal filling defect. Aorta: Aortic root measures 3.1cm, which is normal. Ascending aorta measures 2.8cm, which is normal. Pulmonary Arteries: Enlarged. There is no proximal filling defect. Pulmonary Vein: Four noted pulmonary veins. Two on the right and two on the left. Pericardium: Normal thickness without significant effusion or calcium present. Cardiac Valves: No thickening and calcifications in the aortic and mitral valves. There is no mitral annular calcification. CORONARY ANATOMY: Left Main: Normal. Large caliber vessel with a normal take off from the left coronary cusp that bifurcates to form a left anterior descending and a left circumflex artery. No plaque. Left Anterior Descending Artery: 20-30% stenosis at the ostium. 40% mid LAD. It gives off 3 diagonal branches. Calcified plaque proximal LAD. LAD wraps around apex. Large first septal branch. First diagonal: Small caliber vessel. Patent with no evidence of plaque. Second diagonal: Small caliber vessel. Patent with no evidence of plaque. Third diagonal: Large caliber vessel. Patent with no evidence of plaque. Circumflex Artery: Non-dominant. Patent with no evidence of plaque. It gives off 3 obtuse marginal branches. First obtuse marginal: Large bifurcating caliber vessel. Patent with no evidence of plaque. Second obtuse marginal: Large caliber vessel. Patent with no evidence of plaque. Third obtuse marginal: Moderate caliber vessel. Distal circumflex. Patent with no evidence of plaque. Right Coronary Artery: Dominant. Patent with no evidence of plaque. It terminates as a posterior descending and right posterolateral branch. Posterior descending artery: Patent with no evidence of plaque. Right posterolateral branch: Patent with no evidence of plaque. AORTIC VALVE: Morphology: Trileaflet ADDITIONAL NON-CARDIAC STRUCTURES AND LUNGS READ BY RADIOLOGY COLLEAGUES. IMPRESSION: Stenosis: 20-30% proximal LAD. 40% mid LAD. Plaque (Calcium Score): Overall, there is a mild amount of coronary plaque. Ejection Fraction: 73%. Calcium score zero but visible calcified plaque in proximal, mid LAD. Estimated calcium score 20-30. Mildly dilated main PA. Modifiers: None. Coronary Fractional Flow [place] is recommended. RECOMMENDATION: CAD RADS score is 3 P1/P2/P3/P4- Consider functional testing. Recommend aggressive risk factor modification and preventative pharmacotherapy. Consider other treatments (anti-anginal therapy) per guideline directed care. Electronically signed by MAGED RAYA M.D. 10/29/2024 12:48 PM Narrative 10/23/2024 4:31 PM CDT [facility] [address] [place], [place] [address] EXAMINATION: CARDIAC COMPUTED TOMOGRAPHY ANGIOGRAM, ROUTINE CORONARY CTA. LUNG OVER READ. DATE: 10/22/2024 HISTORY: 78-year old female with chest pain. COMPARISON: None. TECHNIQUE: Multidetector computerized tomography coronary angiogram was obtained using retrospective ECG gating after the administration of 80 mL of Isovue-370 intravenous contrast at 5 mL/sec with 50 mL saline push according to coronary CTA protocol. ECG tube modulation was used to reduce the radiation exposure. A dose lowering technique was used for this procedure, which may include, but is not limited to, dose reduction technique, automated exposure control, the use of iterative reconstruction, and ALARA (As Low As Reasonably Achievable) / Image Gently techniques. Medications: Administered by cardiology service. Vital signs: Recorded by cardiology service. Procedure Complications/Allergic reactions: None. Coronary CT angiogram quality: Determined by cardiology service. FINDINGS: CORONARY ARTERY ANGIOGRAM AND OTHER CARDIAC FINDINGS: Interpreted by vest maker. EXTRACARDIAC FINDINGS: The visible lungs contain no suspicious lung nodule, mass, consolidation. The visualized thoracic aorta is normal. Main pulmonary artery, 3.1 cm. Left shoulder prosthesis. Cholecystectomy clips. Spondylosis. Gastric banding procedure. IMPRESSION: 1. Cardiac findings interpreted by vest maker. 2. Possible pulmonary hypertension. Ordered By: MAGED RAYA Interpreted By: David Lancaster MD, 10/23/2024 4:27 PM Maged Raya MD CT Edited Result - Final from Last 3 Months Insurance [facility] MEDICARE Care Teams Property Custodian Relationship Specialty Start Date End Date Zhanna Cordero MD [address] [place] [address] PCP - General FAMILY PRACTICE 11/25/23
--- OUTSIDE RECORDS SUMMARY | 2024-12-18 10:41 | XMS_ITS | Encounter Summary ---
Author Organization [facility] Address [address] [place] [address] Care Team Providers Care Telecommunications Administrator Name Role Phone Zhanna Cordero MD Primary Care Provider [phone] Encounter Details Date Type Department Care Team (Late st Contact Info) Description 08/27/2024 Abstract [facility], [address] [place], [place] [phone] Flavio Keenan MA Social History Tobacco Use Types Packs/Day Years Used Date Smoking Tobacco: Never Assessed Comments Unknown Sex and Gender Information Value Date Recorded Sex Assigned at Female 10/22/2024 12:38 PM CDT Legal Sex Female 10:22 PM REPAIRER WOOD FURNITURE Gender Identity Not on file Sexual Orientation Not on file documented as of this encounter Plan of Treatment Upcoming Encounters Date Type Department Care Team (Late Contact Info) Description 02/22/2025 10:00 AM REPAIRER WOOD FURNITURE Office Visit [facility] [address] Aram Garcia MD [facility] [address] [place], [place] [phone] documented as of this encounter Procedures Procedure Name Priority Date/Time Associated Diagnosis Comments THYROID STIM HORMONE TSH Routine 08/24/2024 documented in this encounter Results * THYROID STIM HORMONE TSH (08/24/2024) TSH 2.040 us Default History Genericprovider LABORATORY Edited Result - Final documented in this encounter Visit Diagnoses Not on filedocumented in this encounter Care Teams Telecommunications Administrator Relationship Specialty Start Date End Date Zhanna Cordero MD [address] [place] [address] PCP - General FAMILY PRACTICE 11/25/23 documented as of this encounter
--- OUTSIDE RECORDS SUMMARY | 2024-12-18 10:41 | XMS_ITS | Encounter Summary ---
Author Organization [employer] Address [address] [place] [address] Care Team Providers Care Drug Safety Assistant Name Role Phone Jung Regalado MD Primary Care Provider + [phone] Encounter Details Date Type Department Care Team (Latest Contact Info) Description 07/24/2004 Inpatient Historical [facility] Maged Gonzalez MD NO ADDRESS ON FILE BENIGN NEOPLASM OVARY (Primary Dx) Social History Tobacco Use Types Packs/Day Years Used Date Smoking Tobacco: Never Assessed Comments Unknown Sex and Gender Information Value Date Recorded Sex Assigned at Not on file Legal Sex Female 4:20 AM SILVERWARE BUFFER Gender Identity Not on file Sexual Orientation [...] URINE ORDERABLES Final Result Performing Organization Address [facility] Phone Number INTERFACE SYSTEM Refer to clinic/hospital [...] ORDERABLES Final R esult Performing Organization Address [facility] Phone Number INTERFACE SYSTEM Refer to clinic/hospital [...] ORDERABLES Final R esult Performing Organization Address City/State/[facility] Co de Phone Number INTERFACE SYSTEM Refer to clinic/hospital department * HEMOGLOBIN AND HEMATOCRIT (07/20/2004 9:52 AM CDT) HEMOGLOBIN 14.0 11.8 - 14.8 g/dL INTERFACE SYSTEM HEMATOCRIT 40.4 35.5 - 44.0 % INTERFACE SYSTEM 07/20/2004 9:52 AM CDT Maged Gonzalez MD HEMATOLOGY ORDERABLES Final R esult Performing Organization Address City/State/[facility] Co de Phone Number INTERFACE SYSTEM Refer [...] INTERFACE SYSTEM 07/20/2004 9:52 AM CDT us aMged Gonzalez MD CHEMISTRY ORDERABLES Final Re sult INTERFACE SYSTEM Refer to clinic/hospital department documented in this encounter Visit Diagnoses Diagnosis Benign neoplasm of ovary- Primary documented in this encounter Care Teams Drug Safety Assistant Relationship Specialty Start Date End Date Jung Regalado MD [address] [place] [id number] PCP - General 01/20/09 documented as of this encounter
--- OUTSIDE RECORDS SUMMARY | 2024-12-18 10:41 | XMS_ITS | Encounter Summary ---
Author Organization [facility] Address [address] [place] [address] Care Team Providers Care Flotation Tank Operator Name Role Phone Jung Regalado MD Primary Care Provider + [phone] Encounter Details Date Type Department Care Team (Latest Contact Info) Description 05/18/1999 Outpatient Historical HIS [facility] MICHELINE Gonzalez, Maged Pizano MD NO ADDRESS ON FILE Other screening mammogram (Primary Dx) Social History Tobacco Use Types Packs/Day Years Used Date Smoking Tobacco: Never Assessed Comments Unknown Sex and Gender Information Value Date Recorded Sex Assigned at Not on file Legal Sex Female 4:20 AM MECHANIC ASSISTANT Gender Identity Not on file Sexual Orientation Not on file documented as of this encounter Plan of Treatment Not on file documented as of this encounter Visit Diagnoses Diagnosis Other screening mammogram- Primary documented in this encounter Care Teams Flotation Tank Operator Relationship Specialty Start Date End Date Jung Regalado MD [address] [place] [address] PCP - General 01/20/09 documented as of this encounter
--- OUTSIDE RECORDS SUMMARY | 2024-12-18 10:41 | XMS_ITS | Encounter Summary ---
Author Organization [facility] Address [address] [place] [address] Care Team Providers Care Gauge Inspector Name Role Phone Jung Regalado MD Primary Care Provider + [phone] Encounter Details Date Type Department Care Team (Latest Contact Info) Description 01/01/2008 Outpatient Historical HIS [facility] Maged Anne MD NO ADDRESS ON FILE Other Screening Mammogram Social History Tobacco Use Types Packs/Day Years Used Date Smoking Tobacco: Never Assessed Comments Unknown Sex and Gender Information Value Date Recorded Sex Assigned at Not on file Legal Sex Female 4:20 AM HARDWARE PRESS OPERATOR Gender Identity Not on file Sexual [...] PM CDT [facility] [address] [facility] [place] [place] [address] Admit Date: 01/01/2008 KAMRAN LAU Sex: F Admit Prov: MAGED ARDON Date: 1945 Primary Care Prov: CMRN: [id number] Room: ANG SSN: [id number] IMAGING SERVICES Ordering Prov: MAGED ARDON Accession Number: [id number] Interpretation BILATERAL SCREENING DIGITAL MAMMOGRAMS WITH COMPUTER [...] [facility] Procedure Note Kristy Leon - 01/02/[address] [address] Admit Date: 01/01/2008 KAMRAN LAU Sex: F Admit Prov: MAGED ARDON Date: 1945 [facility] Prov: CMRN: [id number] Room: ANG SSN: [id number] IMAGING SERVICES Ordering Prov: MAGED ARDON Interpretation [...] mammogram documented in this encounter Care Teams Gauge Inspector Relationship Specialty Start Date End Date Jung Regalado MD [address] [place] [address] PCP - General 01/20/09 documented as of this encounter
--- OUTSIDE RECORDS SUMMARY | 2024-12-18 10:41 | XMS_ITS | Encounter Summary ---
Author Organization [facility] Address [address] [place] [address] Care Team Providers Care Thinner Sprayer Name Role Phone Jung Regalado MD Primary Care Provider + [phone] Encounter Details Date Type Department Care Team (Latest Contact Info) Description 10/20/2006 Outpatient Historical HIS [facility] MICHELINE Gonzalez, Maged Pizano MD NO ADDRESS ON FILE Other Screening Mammogram (Primary Dx) Social History Tobacco Use Types Packs/Day Years Used Date Smoking Tobacco: Never Assessed Comments Unknown Sex and Gender Information Value Date Recorded Sex Assigned at Not on file Legal Sex Female 4:20 AM CHECK INSPECTOR Gender Identity Not on file Sexual Orientation Not on file documented as of this encounter Plan of Treatment Not on file documented as of this encounter Visit Diagnoses Diagnosis Other screening mammogram- Primary documented in this encounter Care Teams Thinner Sprayer Relationship Specialty Start Date End Date Jung Regalado MD [address] [place] [address] PCP - General 01/20/09 documented as of this encounter
--- OUTSIDE RECORDS SUMMARY | 2024-12-18 10:41 | XMS_ITS | Encounter Summary ---
Author Organization [facility] Health Address [address] [facility] [place] [address] Care Team Providers Care Entry Level Receptionist Name Role Phone Jung Regalado MD Unavailable [phone] Zhanna Cordero MD Primary Care Provider [phone] Encounter Details Date Type Department Care Team (Late st Contact Info) Description 01/23/2024 Lab Requisition [facility] - DermPath Lab [address] [facility], [place] [address] Hilaria Kaur DO [address] [facility] [place] [address] [place] [address] Social History Tobacco Use Types Packs/Day Years [...] and heating? Not hard at all 09/16/2023 [employer] [place] [facility] [employer] - Occupational Stress [...] place to sleep or slept in a correction (including now)? No 09/16/2023 Comments No Sex and Gender Information Value Date Recorded Sex Assigned at Not on file Legal Sex Female 6:18 AM PILOT TEACHER Gender Identity Not on file Sexual Orientation [...] documented in this encounter Plan of Treatment Upcoming Encounters Date Type Department Care Team (Late st Contact Info) Description 02/28/2025 12:00 PM PILOT TEACHER Office Visit [facility] - Neurology [address] [place] [address], Formerly [facility] [place] [phone] Steven Vaughan MD [address] [place] [address] documented as of this encounter Procedures Procedure Name Priority Date/Time Associated Diagnosis Comments DERMATOPATHOLOGY Routine 01/23/2024 11:2 0 AM PILOT TEACHER documented in this encounter Results * DERMATOPATHOLOGY (01/23/2024 11:20 AM PILOT TEACHER) Case Report Dermatopathology Report Case: [id number] Authorizing Provider: Hilaria Kaur DO Collected: 01/23/2024 11:20 AM Ordering Location: [facility] - Received: 01/24/2024 07:30 AM DermPath Lab Pathologist: Jenny Flores MD Specimens: A) - Skin, right upper arm B) - Skin, left ventral forearm C) - Skin, left anterior LE D) - Skin, right anterior LE 4 4:22 PM PILOT TEACHER DERMATOPATHOLOGY LABORATORY Final Diagnosis Specimen A. SKIN, right upper arm: SQUAMOUS CELL CARCINOMA, KERATOACANTHOMA TYPE (C44.622) Specimen B. SKIN, left ventral forearm: COMPOUND MELANOCYTIC NEVUS, IRRITATED (D22.62) (see microscopic description and comment) Specimen C. SKIN, left anterior LE: LARGE CELL ACANTHOMA (D23.9) Specimen D. SKIN, right anterior LE: HYPERPLASTIC (HYPERTROPHIC) ACTINIC KERATOSIS, LICHENOID (L57.0) 4:22 PM [facility] DERMATOPATHOLOGY LABORATORY at 1622 PILOT TEACHER Clinical History A: R/O NMSC B: R/O Melanoma C-D: R/O NMSC 4:22 PM [facility] DERMATOPATHOLOGY LABORATORY Gross [...] shave biopsy measuring 6x5x1 mm. Jar 0. 4:22 PM [facility] DERMATOPATHOLOGY LABORATORY Microscopic Description Specimen [...] and some basal vacuolar alteration. 4:22 PM [facility] DERMATOPATHOLOGY LABORATORY Disclaimer An external and internal positive and negative controls are appropriate for the histochemical, immunohistochemical and immunofluorescence stain(s) in this case (if any), except where stated explicitly. The performance characteristics of the stain(s) cited in this report were developed and its performance characteristic determined by the Dermatopathology Laboratory at [facility], directed by Dr. Nica Diaz. These tests need not be, and therefore are not, approved by the [place] Food and Drug Administration. The tests are used for clinical purposes. Billing Codes Specimen Charges Stain Charges 36017 62348 61640 91438 1 1 1 1 46214 62699 33447 1 1 1 4 4:22 PM PILOT TEACHER DERMATOPATHOLOGY LABORATORY Embedded Images 4 4:22 PM PILOT TEACHER DERMATOPATHOLOGY LABORATORY Pathology/Cytology TISSUE SPECIMEN FROM SKIN / Unknown 01/23/2024 11:20 AM PILOT TEACHER 01/24/2024 7:30 AM PILOT TEACHER Miscellaneous samples (specimen) TISSUE SPECIMEN FROM SKIN / Unknown 01/23/2024 11:20 AM PILOT TEACHER 01/24/2024 7:30 AM PILOT TEACHER Miscellaneous samples (specimen) TISSUE SPECIMEN FROM SKIN / Unknown 01/23/2024 11:20 AM PILOT TEACHER 01/24/2024 7:30 AM PILOT TEACHER Miscellaneous samples (specimen) TISSUE SPECIMEN FROM SKIN / Unknown 01/23/2024 11:20 AM PILOT TEACHER 01/24/2024 7:30 AM PILOT TEACHER us Hilaria Kaur DO LAB - PATHOLOGY/CYTOLOGY ORDERABLES Final Result DERMATOPATHOLOGY LABORATORY [facility] - Department of Dermatology [facility] Specialized Medicine [address] [place] [address], [address]rd Floor [address] [phone] documented in this encounter Visit Diagnoses Not on filedocumented in this encounter Care Teams Entry Level Receptionist Relationship Specialty Start Date End Date Zhanna Cordero MD [address] [place] [address] PCP - General 12/01/21 Jung Regalado MD [address] [place] [address] Family Medicine 03/16/10 documented as of this encounter
--- OUTSIDE RECORDS SUMMARY | 2024-12-18 10:42 | XMS_ITS | Encounter Summary ---
Author Organization [facility] Health Address [address] [place] [address] Care Team Providers Care Flight Engineer Instructor Name Role Phone Jung Regalado MD Unavailable [phone] Zhanna Cordero MD Primary Care Provider [phone] Encounter Details Date Type Department Care Team (Late st Contact Info) Description 07/30/2024 Lab Requisition [facility] - DermPath Lab [address] [facility], [place] [address] Hilaria Kaur DO [address] [facility] [address] [place] [address] Social History Tobacco Use Types Packs/Day Years [...] and heating? Not hard at all 09/16/2023 [employer] [facility] - Occupational Stress [...] a senior care (including now)? No 09/16/2023 Comments No Sex and Gender Information Value Date Recorded Sex Assigned at Not on file Legal Sex Female 6:18 AM BIT SHARPENER Gender Identity Not on file Sexual Orientation [...] st Contact Info) Description 02/28/2025 12:00 PM BIT SHARPENER Office Visit [facility] - Neurology [address] [place] [address], [place] [phone] Steven Vaughan MD [address] [place] [address] documented as of this encounter Procedures Procedure Name Priority Date/Time Associated Diagnosis Comments DERMATOPATHOLOGY Routine 07/30/2024 10:1 9 AM CDT documented in this encounter Results * DERMATOPATHOLOGY (07/30/2024 10:19 AM CDT) Case Report Dermatopathology Report Case: [id number] Authorizing Provider: Hilaria Kaur DO Collected: 07/30/2024 10:19 AM Ordering Location: [facility] - Received: 07/30/2024 04:45 PM DermPath Lab Pathologist: Jenny Flores MD Specimen: Skin, left anterior lower exteremity 4:34 PM CDT DERMATOPATHOLOGY LABORATORY Final Diagnosis Specimen A. 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 The specimen consists of a shave biopsy measuring 7x6x1 mm. Jar 0. 5 4:34 PM CDT DERMATOPATHOLOGY LABORATORY Microscopic Description Specimen A. SKIN, left anterior lower exteremity: The epidermis shows parakeratosis, full thickness disorderly maturation of keratinocytes, mitoses at different levels, and dyskeratotic cells. Additional deeper sections were obtained and reviewed. 5 4:34 PM CDT DERMATOPATHOLOGY LABORATORY Disclaimer An external and internal positive and negative controls are appropriate for the histochemical, immunohistochemical and immunofluorescence stain(s) in this case (if any), except where stated explicitly. The performance characteristics of the stain(s) cited in this report were developed and its performance characteristic determined by the Dermatopathology Laboratory at [facility], directed by Dr. Nica Diaz. These tests need not be, and therefore are not, approved by the [place] Food and Drug Administration. The tests are used for clinical purposes. Billing Codes Specimen Charges Stain Charges 62106 1 5 4:34 PM CDT DERMATOPATHOLOGY LABORATORY Embedded Images 5 4:34 PM CDT DERMATOPATHOLOGY LABORATORY Pathology/Cytolo gy TISSUE SPECIMEN FROM SKIN / Unknown 07/30/2024 10:19 AM CDT 07/30/2024 4:45 PM CDT us Hilaria Kaur DO LAB - PATHOLOGY/CYTOLOGY ORDERABLES Final Result DERMATOPATHOLOGY LABORATORY [facility] - Department of Dermatology [facility] Medicine [address] [place] [address], [address] [phone] documented in this encounter Visit Diagnoses Not on filedocumented in this encounter Care Teams Flight Engineer Instructor Relationship Specialty Start Date End Date Zhanna Cordero MD [address] [place] [address] PCP - General 12/01/21 Jung Regalado MD [address] [place] [address] Family Medicine 03/16/10 documented as of this encounter
--- OUTSIDE RECORDS SUMMARY | 2024-12-18 10:42 | XMS_ITS | Encounter Summary ---
Author Organization [facility] Address [address] [facility] [place] [address] Care Team Providers Care Studio Hand Name Role Phone Jung Regalado MD Unavailable [phone] Jung Regalado MD Primary Care Provider [phone] Zhanna Cordero MD Primary Care Provider [phone] Encounter Details Date Type Department Care Team (Late Contact Info) Description 04/26/2018 Lab Requisition [facility] [address] [place] [phone] Abiola Stoddard MD [address] [place] [address] [address] [place] [address] Social History Tobacco Use Types Packs/Day Years Used Date Smoking Tobacco: Never Smokeless Tobacco: Never Alcohol Use Standard Drinks/Week Comments Yes 0 (1 standard drink = 0.6 oz pur e alcohol) Comments No Sex and Gender Information Value Date Recorded Sex Assigned at Not on file Legal Sex Female 6:18 AM SALVAGE GRINDER Gender Identity Not on file Sexual Orientation Not on file documented as of this encounter Plan of Treatment Upcoming Encounters Date Type Department Care Team (Late Contact Info) Description 02/28/2025 12:00 PM SALVAGE GRINDER Office Visit [facility] - Neurology [address] [place] [phone] Steven Vaughan MD [address] [place] [address] [address] [place] [address] documented as of this encounter Visit Diagnoses Not on filedocumented in this encounter Care Teams Studio Hand Relationship Specialty Start Date End Date Jung Regalado MD [address] [place] [address] PCP - General 07/12/17 11/30/21 Zhanna Cordero MD [address] [place] [address] PCP - General 12/01/21 Jung Regalado MD [address] [place] [address] Family Medicine 03/16/10 documented as of this encounter
--- OUTSIDE RECORDS SUMMARY | 2024-12-18 10:42 | XMS_ITS | Clinical Summary ---
Author Organization [facility] Address [address] [place] [address] Phone Care Team Providers Care Collar Turner Operator Name Role Phone Jung Regalado MD Primary Care Provider [phone] Allergies No known active allergies Medications acyclovir [...] Encounters Date Type Department Care Team Description 11/20/2024 External Device Data STL ABSTRACTION Provider, Abstract 11/20/2024 External Device Data STL ABSTRACTION Provider, Abstract 11/20/2024 External Device Data STL ABSTRACTION Provider, Abstract 09/26/2024 External Device Data ST[facility] ABSTRACTION Provider, [...] on file Legal Sex Female 4:20 AM 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
--- OUTSIDE RECORDS SUMMARY | 2024-12-18 10:42 | XMS_ITS | Clinical Summary ---
Author Organization [facility] Care Team Providers Care Advertising Account Manager Name Role Phone Unavailable Primary Care Provider Unavailabl e Social History Tobacco Use Types Packs/Day Years Used Date Smoking Tobacco: Never Assessed Comments Unknown Sex and Gender Information Value Date Recorded Sex Assigned at Not on file Legal Sex Female 2:08 PM CLERK OF WORKS Gender Identity Not on file Sexual Orientation Not on file Plan of Treatment Health Maintenance Due Date Last Done Comments Hepatitis C Virus (HCV) Screening 1945 TdaP Immunization 1945 Pneumococcal Immunization (5 0+ years) (1 of 1 - PCV) 12/08/1997 Respiratory Syncytial Virus (RSV) Immunization (Adult) (1 - 1-dose 75+ series) 12/08/2022 Influenza Immunization (#1) 2024 0903/2020, 01/03/2020 SARS-COV-2 Immunization (2024- season) 2024 03/19/2021, 05/21/2020, 04/23/2020 Zoster Immunization Completed 02/23/2021, [...]
--- OUTSIDE RECORDS SUMMARY | 2024-12-18 10:42 | XMS_ITS | Encounter Summary ---
Author Organization [facility] Care Team Providers Care Cloth Opener Hand Name Role Phone Jung Regalado MD Primary Care Provider [phone] Zhanna Cordero MD Primary Care Provider [phone] Encounter Details Date Type Department Care Team (Latest Contact Info) Description 02/08/2017 Orders Only [facility] ProviderConstance MD [address] [place], [place] [id number] Social History Tobacco Use Types Packs/Day Years Used Date Smoking Tobacco: Never Comments Unknown Sex and Gender Information Value Date Recorded Sex Assigned at Not on file Legal Sex Female 11:28 AM SURGICAL RESIDENT Gender Identity Female 06/30/2022 6:11 AM CDT Sexual Orientation Straight 06/30/2022 6: 11 AM CDT documented as of this encounter Plan of Treatment Not on file documented as of this encounter Procedures Procedure Name Priority Date/Time Associated Diagnosis Comments PROCEDURE - RESULT 02/10/2017 12 :00 AM SURGICAL RESIDENT PROCEDURE - RESULT 02/08/2017 12 :00 AM SURGICAL RESIDENT documented in this encounter Results * PROCEDURE - RESULT (02/10/2017 12:00 AM SURGICAL RESIDENT) Narrative 02/10/2017 12:00 AM SURGICAL RESIDENT Ordered by an unspecified provider. Historical Provider Final Res ult * PROCEDURE - RESULT (02/08/2017 12:00 AM SURGICAL RESIDENT) Narrative 02/08/2017 12:00 AM SURGICAL RESIDENT Ordered by an unspecified provider. us Historical Provider Final Res ult documented in this encounter Visit Diagnoses Not on filedocumented in this encounter Care Teams Cloth Opener Hand Relationship Specialty Start Date End Date Jung Regalado MD [address] [place] [address] PCP - General 10/05/16 05/21/20 Zhanna Cordero MD [address] [place] [address] PCP - General Family Medicine 05/22/20 documented as of this encounter
--- OUTSIDE RECORDS SUMMARY | 2024-12-18 10:42 | XMS_ITS | Clinical Summary ---
Author Organization [facility] Address [address] [place] [address] Care Team Providers Care Jumpbasting Canvas Baster Name Role Phone Jung Regalado MD Unavailable [phone] Zhanna Cordero MD Primary Care Provider [phone] Source Comments [facility],non-owned Affiliates and Associated Physician Practices is amultiple site organization consisting of ambulatory clinics and hospital sitesin [place], [place], [place] and [place]. This disclosure is being madepursuant to the Care Everywhere program and may not contain all information available regarding this patient. 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 Arthralgia of shoulder 09/02/2011 Primary hypertension 03/16/2010 Degeneration of cervical intervertebral disc 05/2010 Cervical spondylosis without myelopathy 03/16/19 11 Encounters Date Type Department Care Team Description 11/16/2024 9:40 AM CDT - 11/16/2024 11:59 PM CDT Hospital Encounter [facility] [address] [place] [address] Jazz Torres PA-C Discharge Disposition: Home or Self Care 11/16/2024 Travel 10/31/2024 Telephone [facility] [address] [facility], [place] [address] Steven Vaughan MD 10/24/2024 Orders Only [facility] [address] [place] [address] Jazz Torres PA-C Aneurysm from Last 3 Months Family History Medical [...] and heating? Not hard at all 09/16/2023 [facility] of Occupat ional Health - Occupational Stress [...] in a fdc (including now)? 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 INSTALLER Gender Identity Not on file Sexual [...] 11/24/2023 9:45 AM CDT Plan of Treatment Upcoming Encounters Date Type Department Care Team (Late st Contact Info) Description 02/28/2025 12:00 PM LAWN SPRINKLER INSTALLER Office Visit [facility] [address] [place] [address], [place] [address] Steven Vaughan MD [address] [place] [address] [place] [address] Health Maintenance Due Date Last Done Comments HEPATITIS C SCREENING 12/04/1965 DTAP/TDAP/TD VACCINES (1 - Tdap) 12/08/1966 PNEUMOCOCCAL VACCINE 50+ (1 of 1 - PCV) 12/08/1997 ZOSTER VACCINE (1 of 2) 12/08/1997 Respiratory Syncytial Virus (RSV) Vaccine Pt: or over 60 yrs (1 - 1-dose 75+ series) 12/08/2022 DEPRESSION SCREENING 03/14/2024 MEDICARE AWV CALENDAR YEAR 2024 COVID-19 VACCINE ( season) 2024 03/19/2021, 03/18/2021, 05/21/2020, Additional history exists INFLUENZA VACCINE (#1) 2024 , 12/12/2020, 01/03/2020, Additional history exists SCREENING FOR DIABETES 09/22/2026 , 09/23/2023, 09/23/2023, [...] this topic Medical Devices Implanted Type Area Glass Maker Device Identifier Shelf Expiration Date Model / Serial / Lot Cmpnt Ptlr S 31x9mm Tritanium Strl Lf Implanted:Qty: 1 on 02/05/2022 by Jason Vargas DO at [facility] Right: Knee [employer] 01/08/2027 [id number] / / [id number] Bsplt Tib Trthlm 4 Kn Tritanium Implanted:Qty: 1 on 02/05/2022 by Jason Vargas DO at [facility] Right: Knee [employer] 2026 [id number] / / [id number] Cmpnt Fem Kn Rt 3 Crcte Rtn Bead Trthln Implanted:Qty: 1 on 02/05/2022 by Jason Vargas DO at [facility] Right: Knee [employer] 11/21/2026 [id number] / / [id number] Ins Tib 4 9mm Kn X3 Crcte Sub Trthln Implanted:Qty: 1 on 02/05/2022 by Jason Vargas DO at [facility] Right: Knee [employer] 12/02/2026 [id number] / / [id number] Procedures Procedure Name Priority Date/Time Associated Diagnosis Comments CT ANGIO BRAIN AND NECK Routine 11/16/2024 10:14 AM CDT Aneurysm ISTAT CREATININE Routine 11/16/2024 10:0 0 AM CDT GLUCOSE - POINT OF CARE Routine 09/23/2023 12:31 PM CDT from Last 3 Months or Most Recently Relevant to Health Maintenance Results * CT Angio Brain And Neck (11/16/2024 10:14 AM CDT) Anatomical Region Laterality Modality Head Computed Tomogra phy 11/16/2024 10:2 7 AM CDT Impressions 11/16/2024 10:59 AM CDT IMPRESSION: 1. No large arterial occlusions or significant stenoses identified in the head or neck. 2. 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 3. Redemonstration of a right 2.9 cm thyroid nodule. Recommend nonemergent thyroid ultrasound if not previously done. Report dictated by Gurmeet Obrien MD(radiology tech). > Dictated by Digital Account Supervisor I, Abhishek Bhandari MD have personally reviewed and interpreted this examination/study. > Interpreting Provider: Abhishek Bhandari MD on 11/16/2024 10:59 AM Narrative 11/16/2024 10:59 AM CDT EXAMINATION: 1. Computed tomographic (CT) angiography of the head without and with contrast 2. CT angiography of the neck with contrast HISTORY: I72.9: Aneurysm TECHNIQUE: CT of the head was performed without contrast according to standard protocol. Then CT angiography of the head and neck was obtained after the uneventful administration of mL Isovue 370 intravenous contrast. Three dimensional postprocessing was performed by the technologist and sent to the workstation for review. FINDINGS: Comparison is made with a study from CTA brain and neck dated 09/15/2023 Non-angiographic findings: No acute intra- or extra-axial fluid collections are identified. There is mild cerebral volume loss with associated ex vacuo ventricular dilatation. The basilar cisterns are patent. No mass effect or midline shift is seen. Redemonstration small foci of hypoattenuation involving the bilateral basal ganglia, left greater than right cerebellar hemispheres, and brainstem. The redman-white matter differentiation otherwise appears normal. Periventricular white matter hypoattenuation is indicative of chronic small vessel ischemic disease. There is vascular calcification of the carotid siphons. Other than a left cataract extraction, the visualized portions of the orbits, paranasal sinuses, and mastoids appear normal. No acute fracture is identified. Redemonstration of a heterogeneously enhancing right thyroid mass measuring 2.9 x 2.2 cm. Multilevel degenerative disc and joint disease of the cervical spine, worst at C3-C4, C4-C5, C5-C6 with associated disc osteophyte complexes resulting in mild spinal canal stenosis at these levels. Advanced with facet joint osteoarthritis and uncovertebral hypertrophy resulting in multilevel varying degrees of mild to advanced neural foraminal stenoses. Atelectatic changes are noted in the visualized lung apices. Angiographic findings: There is minimal atherosclerosis of the aortic arch. The configuration of the brachiocephalic vessels is typical. The innominate artery and both subclavian arteries appear normal. The right common and internal carotid arteries as well as the right carotid bifurcation are patent. The left common and internal carotid arteries as well as the left carotid bifurcation are patent. The carotid and the vertebral arteries are tortuous. The cervical vertebral arteries are patent. The distal internal carotid arteries are patent. Redemonstration of a saccular aneurysm at the clinoid segment of the right ICA measuring 3 x 3 mm (series 10, image 57). Demonstration of a small saccular aneurysm along the inferior aspect of the left carotid siphon, directed posteriorly and measuring less than 2 mm, (13, image 47) The anterior cerebral arteries are patent. The middle cerebral arteries are patent. The posterior cerebral arteries are patent. The distal vertebral arteries are patent. The basilar artery is patent patent. No other aneurysms, vascular occlusions, or intracranial stenoses are identified. Procedure Note Abhishek Bhandari MD - 11/16/2024 EXAMINATION: 1. Computed tomographic (CT) angiography of the head without and with contrast 2. CT angiography of the neck with contrast HISTORY: I72.9: Aneurysm TECHNIQUE: CT of the head was performed without contrast according to standard protocol. Then CT angiography of the head and neck was obtained after the uneventful administration of mL Isovue 370 intravenouscontrast. Three dimensional postprocessing was performed by the technologist andsent to the workstation for review. FINDINGS: Comparison is made with a study from CTA brain and neck dated 09/15/2023 Non-angiographic findings: No acute intra- or extra-axial fluid collections are identified. Thereis mild cerebral volume loss with associated ex vacuo ventriculardilatation. The basilar cisterns are patent. No mass effect or midline shift isseen. Redemonstration small foci of hypoattenuation involving the bilateralbasal ganglia, left greater than right cerebellar hemispheres, and brainstem.The redman-white matter differentiation otherwise appears normal.Periventricular white matter hypoattenuation is indicative of chronic small vesselischemic disease. There is vascular calcification of the carotid siphons. Otherthan a left cataract extraction, the visualized portions of the orbits, paranasal sinuses, and mastoids appear normal. No acute fracture is identified. Redemonstration of a heterogeneously enhancing right thyroid massmeasuring 2.9 x 2.2 cm. Multilevel degenerative disc and joint disease of the cervical spine, worst at C3-C4, C4-C5, C5-C6 with associated disc osteophyte complexes resulting in mild spinal canal stenosis at these levels. Advanced with facet joint osteoarthritis and uncovertebral hypertrophy resulting in multilevel varying degrees of mild to advanced neural foraminal stenoses. Atelectatic changes are noted in thevisualized lung apices. Angiographic findings: There is minimal atherosclerosis of the aortic arch. The configurationof the brachiocephalic vessels is typical. The innominate artery and both subclavian arteries appear normal. The right common and internal carotid arteries as well as the right carotid bifurcation are patent. The left common and internal carotid arteries as well as the left carotid bifurcation are patent. The carotid and the vertebral arteries are tortuous. The cervical vertebral arteries are patent. The distal internal carotid arteries are patent. Redemonstration of a saccular aneurysm at the clinoid segment of the right ICA measuring 3 x3 mm (series 10, image 57). Demonstration of a small saccular aneurysmalong the inferior aspect of the left carotid siphon, directed posteriorly and measuring less than 2 mm, (13, image 47) The anterior cerebral arteries are patent. The middle cerebral arteries are patent. The posterior cerebral arteries are patent. The distal vertebral arteries are patent.The basilar artery is patent patent. No other aneurysms, vascularocclusions, or intracranial stenoses are identified. IMPRESSION: 1. No large arterial occlusions or significant stenoses identified inthe head or neck. 2. Unchanged saccular aneurysms involving the clinoid region of theright ICA and inferior aspect of the left carotid siphon, stable in size. 3. Redemonstration of a right 2.9 cm thyroid nodule. Recommendnonemergent thyroid ultrasound if not previously done. Report dictated by Gurmeet Obrien MD(radiology tech). > Dictated by Digital Account Supervisor I, Abhishek Bhandari MD have personally reviewed and interpreted this examination/study. > Interpreting Provider: Abhishek Bhandari MD on 11/16/2024 10:59 AM us Jazz Torres PA-C CT ORDERABLES Final Res ult * (ABNORMAL) ISTAT CREATININE (11/16/2024 10:00 AM CD) Creatinine POCT 1.10 0.60 - 1.30 mg/dL 11/16/2024 10:01 AM [facility] eGFR by CKD-EPI 52(L) >90 mL/min/1.7 3 m2 11/16/2024 10:01 AM [facility] Sample iSTAT HANS 11/16/2024 10:01 AM CDT [facility] Blood BLOOD SPECIMEN / Unknown 11/16/2024 10:00 AM CDT 11/16/2024 10:01 AM CDT us Jazz Torres PA-C LAB - POINT OF CARE ORDER STEPHANIE Final Result [facility] [address] [place] [address], [place] [phone] * (ABNORMAL) GLUCOSE - POINT OF CARE (09/23/2023 12:31 PM CDT) Glucose WB/POC 225(H) 70 - 115 mg/dL 09/23/2023 12:36 PM CDT [facility] Specimen Type Cap Fingerstick 2023 12:36 PM CDT [facility] Blood BLOOD SPECIMEN / Unknown 09/23/2023 12:31 PM CDT 09/23/2023 12:36 PM CDT us Val Gross MD LAB - POINT OF CARE ORDERABLES Final Result [facility] [address] [place] [address], [place] [phone] from Last 3 Months or Most Recently Relevant to Health Maintenance Insurance [facility] MANAGED MEDICARE ADV [place] [id number] [facility] MANAGED MEDICARE ADV [place] [id number] SELF PAY NO INSURANCE Member Subscriber Plan / Payer (Ef fective for All Dates) Name:Kamran Lau Member ID:Not on file Relation to Subscriber:Not on file Name:GLENDYSHIVKAMRAN Subscriber ID:Not on file Address: [address] [place] [address] Payer ID:Not on file Group ID:Not on file Type:Self Pay Address: [facility] MANAGED MEDICARE ADV SELF PAY NO INSURANCE Member Subscriber Plan / Payer (Ef fective for All Dates) Name:Kamran Lau Member ID:Not on file Relation to Subscriber:Not on file Name:KAMRAN LAU Subscriber ID:Not on file Address: [address] [place], [place] [address] Payer ID:Not on file Group ID:Not on file Type:Self Pay Address: [facility] MEDICARE ADV SELF PAY NO INSURANCE Member Subscriber Plan / Payer (Ef fective for All Dates) Name:Kamran Lau Member ID:Not on file Relation to Subscriber:Not on file Name:KAMRAN LAU Subscriber ID:Not on file Address: [address] [place], [place] [address] Payer ID:Not on file Group ID:Not on file Type:Self Pay Address: [place] [place] [employer] MANAGED MEDICARE ADV Advance Directives Documents on File Type Date Recorded Patient Supervisor Line Department Expl anation Adv Directive/Living Will/POA 02/09/2022 6:44 PM * Full Code (Latest Code Status on File) Date Activated Date Inactivated Comments 09/15/2023 2:57 PM 09/23/2023 5:54 PM * Full Code Date Activated Date Inactivated Comments 02/05/2022 12:13 PM 02/06/2022 3:14 PM Care Teams Jumpbasting Canvas Baster Relationship Specialty Start Date End Date Zhanna Cordero MD [address] [place] [address] PCP - General 12/01/21 Jung Regalado MD [address] [place] [address] Family Medicine 03/16/10
--- OUTSIDE RECORDS SUMMARY | 2024-12-18 10:42 | XMS_ITS | Encounter Summary ---
Author Organization [facility] Address [address] [facility] [place] [address] Care Team Providers Care Founder And President Name Role Phone Jung Regalado MD Unavailable [phone] Zhanna Cordero MD Primary Care Provider [phone] Encounter Details Date Type Department Care Team (Late st Contact Info) Description 10/31/2024 Telephone [facility] [address] [place] [address], [place] [address] Steven Vaguhan MD [address] [place] [address] [place] [address] Social History Tobacco Use Types Packs/Day Years [...] and heating? Not hard at all 09/16/2023 [facility] of Occupat ional Health - Occupational [...] on file Legal Sex Female 6:18 AM DESIGN SPECIALIST Gender Identity Not on file Sexual [...] 09/17/2023 5:44 AM CDT Elsa Matute RN * Does person have difficulty doing errands alone? Answer Date of Assessment Author Yes 09/17/2023 5:44 AM CDT Elsa Matute RN documented as of this encounter Mental Status * Does person have difficulty concentrating/remembering/making decisions? Answer Entry Date Author Yes 09/17/2023 5:44 AM CDT Elsa Matute RN documented in this encounter Miscellaneous Notes * Telephone Encounter - Sheree Johnson - 10/31/2024 1:30 PM CDT Current Provider: Dr Vaughan Reason for Call: Pt calling to get an apt for Sept but nothing available until Feb 28, she really needs to get in as she went to the ER and they think she has a pinched nerve in her neck. Is there any way we can get her in before Feb? Can you please call the pt back. Patient Call Back Number: [phone] documented in this encounter Plan of Treatment Upcoming Encounters Date Type Department Care Team (Late st Contact Info) Description 02/28/2025 12:00 PM DESIGN SPECIALIST Office Visit [facility] [address] [place] [address], [facility] [place] [address] Steven Vaughan MD [address] [place] [address] [place] [address] documented as of this encounter Visit Diagnoses Not on filedocumented in this encounter Care Teams Founder And President Relationship Specialty Start Date End Date Zhanna Cordero MD [address] [place] [address] PCP - General 12/01/21 Jung Regalado MD [address] [place] [address] Family Medicine 03/16/10 documented as of this encounter
--- OUTSIDE RECORDS SUMMARY | 2024-12-18 10:42 | XMS_ITS | Encounter Summary ---
Author Organization [facility] Address [address] [place] [address] Care Team Providers Care Expediter Service Order Name Role Phone Jung Regalado MD Primary Care Provider [phone] Zhanna Cordero MD Primary Care Provider [phone] Encounter Details Date Type Department Care Team (Late st Contact Info) Description 09/24/2019 Telephone [facility] [address] [place] [address] Estela Beltran RT Social History Tobacco Use Types Packs/Day Years Used Date Smoking Tobacco: Never Smokeless Tobacco: Never Alcohol Use Standard Drinks/Week Comments Yes 0 (1 standard drink = 0.6 oz pur e alcohol) socially Comments Unknown Sex and Gender Information Value Date Recorded Sex Assigned at Not on file Legal Sex Female 11:28 AM AURICULOTHERAPIST Gender Identity Female 06/30/2022 6:11 AM CDT Sexual Orientation Straight 06/30/2022 6: 11 AM CDT Occupation Industry Job Start Date Job End Date retired Not on file Not on file Not on file documented as of this encounter Plan of Treatment Not on file documented as of this encounter Visit Diagnoses Not on filedocumented in this encounter Care Teams Expediter Service Order Relationship Specialty Start Date End Date Jung Regalado MD [address] [place] [address] PCP - General 10/05/16 05/21/20 Zhanna Cordero MD [address] [place] [address] PCP - General Family Medicine 05/22/20 documented as of this encounter
--- OUTSIDE RECORDS SUMMARY | 2024-12-18 10:42 | XMS_ITS | Encounter Summary ---
Author Organization [facility] Address [address] [facility] [place] [address] Care Team Providers Care Optimization Engineer Name Role Phone Jung Regalado MD Unavailable [phone] Jung Regalado MD Primary Care Provider [phone] Zhanna Cordero MD Primary Care Provider [phone] Encounter Details Date Type Department Care Team (Late Contact Info) Description 04/26/2018 Lab Requisition [facility] [address] [place] [address] Abiola Stoddard MD [address] [place] [address] [address] [place] [address] Social History Tobacco Use Types Packs/Day Years Used Date Smoking Tobacco: Never Smokeless Tobacco: Never Alcohol Use Standard Drinks/Week Comments Yes 0 (1 standard drink = 0.6 oz pur e alcohol) Comments No Sex and Gender Information Value Date Recorded Sex Assigned at Not on file Legal Sex Female 6:18 AM BIOFUELS ENGINEERING MANAGER Gender Identity Not on file Sexual Orientation Not on file documented as of this encounter Plan of Treatment Upcoming Encounters Date Type Department Care Team (Late Contact Info) Description 02/28/2025 12:00 PM BIOFUELS ENGINEERING MANAGER Office Visit [facility] [address] [place] [phone] Steven Vaughan MD [address] [place] [address] [address] [place] [address] documented as of this encounter Procedures Procedure Name Priority Date/Time Associated Diagnosis Comments DERMATOPATH TECHNICAL REPORT Routine 04/25/2018 12:00 AM BIOFUELS ENGINEERING MANAGER documented in this encounter Results * DERMATOPATH TECHNICAL REPORT (04/25/2018 12:00 AM BIOFUELS ENGINEERING MANAGER) Case Report Dermatopathology Report Case: [id number] Authorizing Provider: Abiola Stoddard MD Collected: 04/25/2018 12:00 AM Pathologist: Freida Diehl MD Received: 04/26/2018 10:46 AM Specimen: Skin, right post thigh 12:27 PM [facility]ERMAT[facility] Addendum 1 At the request of the diagnosing physician, the technical component for Byron-1/Melan A was performed by [facility] Dermatopathology Laboratory. 12:27 PM [facility]ERMAT[facility]Y [facility] Addendum electronically signed by Freida Diehl MD on 04/28/2018 at 1227 BIOFUELS ENGINEERING MANAGER Clinical History Nevus, irr color, irr border. 12:27 PM [facility]ERMAT[facility] Gross Description Specimen A: Received is one formalin filled container labeled with the patient's name and designated right post thigh. The specimen consists of a shave measuring [id number]. Jar 0. [facility] Dermatopathology [facility] performed the technical component only. 9 12:27 PM [facility] DERMATOPATHOLOGY [facility]OR[facility] [...] by the Dermatopathology Laboratory at [facility], directed by Dr. Nica Diaz. These tests need not be, and therefore are not, approved by the [place] Food and Drug Administration. The tests are used for clinical purposes. 9 12:27 PM [facility] DERMATOPATHOLOGY [facility]ORAT[facility] at 1218 BIOFUELS ENGINEERING MANAGER Pathology/Cytolog y TISSUE SPECIMEN FROM SKIN / Unknown 04/25/2018 04/26/2018 10:46 AM BIOFUELS ENGINEERING MANAGER Abiola Stoddard MD LAB - PATHOLOGY/CYTOLOGY OR DERABLES Edited Result - Final DERMATOPATHOLOGY LABORATORY [facility] - Department of Dermatology [address] [place] [address] 5th Floor Lab [address] [phone] documented in this encounter Visit Diagnoses Not on filedocumented in this encounter Care Teams Optimization Engineer Relationship Specialty Start Date End Date Jung Regalado MD [address] [place] [address] PCP - General 07/12/17 11/30/21 Zhanna Cordero MD [address] [place] [address] PCP - General 12/01/21 Jung Regalado MD [address] [place] [address] Family Medicine 03/16/10 documented as of this encounter
--- OUTSIDE RECORDS SUMMARY | 2024-12-18 10:42 | XMS_ITS | Encounter Summary ---
Author Organization [facility] Address [address] [facility] [place] [address] Care Team Providers Care Manager Diversity Name Role Phone Jung Regalado MD Unavailable [phone] Zhanna Cordero MD Primary Care Provider Encounter Details Date Type Department Care Team (Late st Contact Info) Description 02/22/2024 Lab Requisition [facility] - DermPath Lab [address] [facility], [place] [address] Hilaria Kaur DO [address] [facility] 3 [place] [address] Social History Tobacco Use Types Packs/Day Years [...] and heating? Not hard at all 09/16/2023 [facility] [place] [facility] - Occupational Stress [...] on file Legal Sex Female 6:18 AM EARTH OBSERVATIONS CHIEF SCIENTIST Gender Identity Not on file Sexual Orientation [...] st Contact Info) Description 02/28/2025 12:00 PM EARTH OBSERVATIONS CHIEF SCIENTIST Office Visit [facility] - Neurology [address] [place] [address], [place] [phone] Steven Vaughan MD [address] [place] [address] documented as of this encounter Procedures Procedure Name Priority Date/Time Associated Diagnosis Comments DERMATOPATHOLOGY Routine 02/22/2024 8:43 AM EARTH OBSERVATIONS CHIEF SCIENTIST documented in this encounter Results * DERMATOPATHOLOGY (02/22/2024 8:43 AM EARTH OBSERVATIONS CHIEF SCIENTIST) Case Report Dermatopathology Report Case: [id number] Authorizing Provider: Hilaria Kaur DO Collected: 02/22/2024 08:43 AM Ordering Location: [facility] - Received: 02/22/2024 03:46 PM DermPath Lab Pathologist: Antonieta Zazueta MD Specimen: Skin, right upper arm 4 12:06 PM EARTH OBSERVATIONS CHIEF SCIENTIST DERMATOPATHOLOGY LABORATORY Final Diagnosis Specimen A. SKIN, right upper arm: DERMAL SCAR RESIDUAL SQUAMOUS CELL CARCINOMA NOT IDENTIFIED (L90.5) 4 12:06 PM EARTH OBSERVATIONS CHIEF SCIENTIST DERMATOPATHOLOGY LABORATORY at 1206 EARTH OBSERVATIONS CHIEF SCIENTIST Clinical History Bx proven, R/O SCC 4 12:06 PM [facility] DERMATOPATHOLOGY LABORATORY Gross Description Specimen A: Received is one formalin filled container labeled with the patient's name and designated right upper arm. The specimen consists of a non-oriented ellipse of skin measuring 89s95g4 mm. The epidermal surface is unremarkable. The margin is inked green. The 12 o'clock and 6 o'clock tips are submitted in cassette 1. The remainder of the ellipse is serially sectioned and submitted in cassette 2. Jar 0. 4 12:06 PM [facility] DERMATOPATHOLOGY LABORATORY Microscopic Description Specimen A. SKIN, right upper arm: There are fibroblasts and collagen bundles oriented parallel to the skin surface. There are elongated blood vessels, some of which are oriented perpendicular to the skin surface. No residual squamous cell carcinoma is identified. 4 12:06 PM [facility] DERMATOPATHOLOGY LABORATORY Disclaimer An external and internal positive and negative controls are appropriate for the histochemical, immunohistochemical and immunofluorescence stain(s) in this case (if any), except where stated explicitly. The performance characteristics of the stain(s) cited in this report were developed and its performance characteristic determined by the Dermatopathology Laboratory at [facility], directed by Dr. Nica Diaz. These tests need not be, and therefore are not, approved by the [place] Food and Drug Administration. The tests are used for clinical purposes. Billing Codes Specimen Charges Stain Charges 56154 1 4 12:06 PM [facility] DERMATOPATHOLOGY LABORATORY Embedded Images 4 12:06 PM [facility] DERMATOPATHOLOGY LABORATORY Pathology/Cytolo gy TISSUE SPECIMEN FROM SKIN / Unknown 02/22/2024 8:43 AM EARTH OBSERVATIONS CHIEF SCIENTIST 02/22/2024 3:46 PM EARTH OBSERVATIONS CHIEF SCIENTIST us Hilaria Kaur DO LAB - PATHOLOGY/CYTOLOGY ORDERABLES Final Result DERMATOPATHOLOGY LABORATORY [facility] - Department of Dermatology [facility] Medicine [address] [place] [address], [address] Floor [address] [phone] documented in this encounter Visit Diagnoses Not on filedocumented in this encounter Care Teams Manager Diversity Relationship Specialty Start Date End Date Zhanna Cordero MD [address] [place] [address] PCP - General 12/01/21 Jung Regalado MD [address] [place] [address] Family Medicine 03/16/10 documented as of this encounter
--- OUTSIDE RECORDS SUMMARY | 2024-12-18 10:42 | XMS_ITS | Encounter Summary ---
Author Organization [facility] Address [address] [facility] [place] [address] Care Team Providers Care Montessori Program Director Name Role Phone Jung Regalado MD Unavailable [phone] Jung Regalado MD Primary Care Provider + [phone] Zhanna Cordero MD Primary Care Provider [phone] Encounter Details Date Type Department Care Team (Late Contact Info) Description 06/07/2018 Lab Requisition [facility] [address] [place] [phone] Abiola Stoddard MD [address] [place] [address] 3 [place] [address] Social History Tobacco Use Types Packs/Day Years Used Date Smoking Tobacco: Never Smokeless Tobacco: Never Alcohol Use Standard Drinks/Week Comments Yes 0 (1 standard drink = 0.6 oz pur e alcohol) Comments No Sex and Gender Information Value Date Recorded Sex Assigned at Not on file Legal Sex Female 6:18 AM LOTTERIES AGENT Gender Identity Not on file Sexual Orientation Not on file documented as of this encounter Plan of Treatment Upcoming Encounters Date Type Department Care Team (Late Contact Info) Description 02/28/2025 12:00 PM LOTTERIES AGENT Office Visit [facility] - Neurology [address] [place] [phone] Steven Vaughan MD [address] [place] [address] [address] [place] [address] documented as of this encounter Procedures Procedure Name Priority Date/Time Associated Diagnosis Comments DERMATOPATHOLOGY Routine 06/06/2018 12:0 0 AM CDT documented in this encounter Results * DERMATOPATHOLOGY (06/06/2018 12:00 AM CDT) Case Report Dermatopathology Report Case: [id number] Authorizing Provider: Abiola Stoddard MD Collected: 06/06/2018 [...] of a non-oriented ellipse of skin measuring 51y97n2 mm. The epidermal surface is unremarkable. The [...] characteristic determined by the Dermatopathology Laboratory at [facility], directed by Dr. Nica Diaz. These tests need not be, and therefore are not, approved by the [place] Food and Drug Administration. The tests are used for clinical purposes. Billing Codes Specimen Charges Stain Charges 33427 1 9 12:25 PM CDT DERMATOPATHOLOGY LABORATORY Embedded Images 9 12:25 PM CDT DERMATOPATHOLOGY LABORATORY Pathology/Cytolog y TISSUE SPECIMEN FROM SKIN / Unknown 06/06/2018 06/07/2018 7:02 AM CDT Abiola Stoddard MD LAB - PATHOLOGY/CYTOLOGY OR DERABLES Final Result DERMATOPATHOLOGY LABORATORY [facility] - Department of Dermatology [address] [place] [address] [address] [phone] documented in this encounter Visit Diagnoses Not on filedocumented in this encounter Care Teams Montessori Program Director Relationship Specialty Start Date End Date Jung Regalado MD [address] [place] [address] PCP - General 07/12/17 11/30/21 Zhanna Cordero MD [address] [place] [address] PCP - General 12/01/21 Jung Regalado MD [address] [place] [address] Family Medicine 03/16/10 documented as of this encounter
== END 2024-12-18 09:56 | disposition home or self-care (01) ==
PROVIDERS: PCP Family Medicine; Visit Provider Family Medicine
DX: E04.1 Nontoxic single thyroid nodule (principal)
CPT/HCPCS: 76536

== ENCOUNTER 2025-01-16 13:53 | Outpatient (CLI) | payer MEDICARE, SELFPAY ==
--- NOTE | ~2025-01-16 | US_ITS ---
EXAMINATION: US FNA w image guidance DATE: 01/16/2025 14:16 INDICATION: Right thyroid nodule TECHNIQUE: A time-out was performed to verify the patient's name, date of , and procedure to be performed. The procedure and its benefits and risks were discussed with the patient. Risks specifically discussed included bleeding and infection. The patient understood the risks and agreed to proceed. The neck was prepped and draped in the usual sterile manner. 3 mL 1% lidocaine was used for local anesthesia. 7 passes were made with a 25G needle into the lesion. Appropriate needle location was documented with continuous sonographic guidance. A sterile bandage was applied. There were no immediate complications. FINDINGS: Grayscale ultrasound images demonstrate biopsy needles advanced into an ill- defined approximately 2 cm nodule surrounding a 1 cm central coarse shadowing calcification. IMPRESSION: 1. Successful ultrasound-guided fine needle aspiration of the right thyroid nodule of concern with central coarse calcification. Reviewed, dictated and finalized at location A. OR COMMISSARY AGENT IMPRESSION: 1. Successful ultrasound-guided fine needle aspiration of the right thyroid no dule of concern with central coarse calcification.
--- NOTE | 2025-01-16 14:00 | CY_PTH ---
PATIENT: Saima Lau LOC: [facility] U#:[id number] AGE/SX: 79/F ROOM: RE01/16/[address]: Katiuska Shi PA-C : 1945 BED: DIS: 01/16/2025 SPEC #: [id number] RECD: 01/16/25 14:01 STATUS: OTONIEL RE #: [id number] BAUTISTA: 01/16/25 14:[address]: Katiuska Shi DEPT: [facility] Cytology RECD BY: Joey Orlando ENTERED: 01/16/25 14:02 SP TYPE: Cytology OTHR DR: Zhanna Cordero, Tissues: A - FNA Thyroid Procedures: Hematoxylin and Eosin Stain Cell Block Fine Needle Aspiration Evaluation Fna Additional Pass Fine Needle Aspiration Pathologist
--- OUTSIDE RECORDS SUMMARY | 2025-01-17 13:25 | XMS_ITS | Encounter Summary ---
Author Organization [facility] Address [address] [place] [address] Care Team Providers Care Fuse Coiler Name Role Phone Jung Regalado MD Primary Care Provider + [phone] Encounter Details Date Type Department Care Team (Latest Contact Info) Description 09/23/2003 Outpatient Historical HIS [facility] MICHELINE Gonzalez, Maged Pizano MD NO ADDRESS ON FILE SCREENING MAMM-MAILG NEOPL-OTHER (Primary Dx) Social History Tobacco Use Types Packs/Day Years Used Date Smoking Tobacco: Never Assessed Comments Unknown Sex and Gender Information Value Date Recorded Sex Assigned at Not on file Legal Sex Female 4:20 AM EVALUATOR TRANSFER STUDENTS Gender Identity Not on file Sexual Orientation Not on file documented as of this encounter Plan of Treatment Not on file documented as of this encounter Visit Diagnoses Diagnosis Other screening mammogram- Primary documented in this encounter Care Teams Fuse Coiler Relationship Specialty Start Date End Date Jung Regalado MD [address] [place] [address] PCP - General 01/20/09 documented as of this encounter
--- OUTSIDE RECORDS SUMMARY | 2025-01-17 13:25 | XMS_ITS | Encounter Summary ---
Author Organization [facility] Address [address] [place] [address] Care Team Providers Care Feed Inspection Supervisor Name Role Phone Jung Regalado MD Primary Care Provider + [phone] Encounter Details Date Type Department Care Team (Latest Contact Info) Description 05/18/1999 Outpatient Historical HIS [facility] MICHELINE Gonzalez, Maged Pizano MD NO ADDRESS ON FILE Other screening mammogram (Primary Dx) Social History Tobacco Use Types Packs/Day Years Used Date Smoking Tobacco: Never Assessed Comments Unknown Sex and Gender Information Value Date Recorded Sex Assigned at Not on file Legal Sex Female 4:20 AM ACCOUNTS PAYABLE PROFESSIONAL Gender Identity Not on file Sexual Orientation Not on file documented as of this encounter Plan of Treatment Not on file documented as of this encounter Visit Diagnoses Diagnosis Other screening mammogram- Primary documented in this encounter Care Teams Feed Inspection Supervisor Relationship Specialty Start Date End Date Jung Regalado MD [address] [place] [address] PCP - General 01/20/09 documented as of this encounter
--- OUTSIDE RECORDS SUMMARY | 2025-01-17 13:25 | XMS_ITS | Encounter Summary ---
Author Organization [facility] Address [address] [place] [address] Care Team Providers Care Aquaculture Program Director Name Role Phone Jung Regalado MD Primary Care Provider + [phone] Encounter Details Date Type Department Care Team (Latest Contact Info) Description 05/22/1998 Outpatient Historical HIS [facility] MICHELINE Gonzalez, Maged Pizano MD NO ADDRESS ON FILE Other screening mammogram (Primary Dx) Social History Tobacco Use Types Packs/Day Years Used Date Smoking Tobacco: Never Assessed Comments Unknown Sex and Gender Information Value Date Recorded Sex Assigned at Not on file Legal Sex Female 4:20 AM LINEN TECH Gender Identity Not on file Sexual Orientation Not on file documented as of this encounter Plan of Treatment Not on file documented as of this encounter Visit Diagnoses Diagnosis Other screening mammogram- Primary documented in this encounter Care Teams Aquaculture Program Director Relationship Specialty Start Date End Date Jung Regalado MD [address] [place] [address] PCP - General 01/20/09 documented as of this encounter
--- OUTSIDE RECORDS SUMMARY | 2025-01-17 13:25 | XMS_ITS | Encounter Summary ---
Author Organization [facility] Address [address] [place] [address] Care Team Providers Care Audit Machine Operator Name Role Phone Jung Regalado MD Primary Care Provider + [phone] Encounter Details Date Type Department Care Team (Latest Contact Info) Description 11/30/1999 Outpatient Historical HIS [facility] MICHELINE Diaz, Jung Jean-Baptiste MD [address] [address] Other specified disorder of breast (Primary Dx) Social History Tobacco Use Types Packs/Day Years Used Date Smoking Tobacco: Never Assessed Comments Unknown Sex and Gender Information Value Date Recorded Sex Assigned at Not on file Legal Sex Female 4:20 AM GERIATRIC NURSING ASSISTANT Gender Identity Not on file Sexual Orientation Not on file documented as of this encounter Plan of Treatment Not on file documented as of this encounter Visit Diagnoses Diagnosis Other specified disorder of breast- Primary documented in this encounter Care Teams Audit Machine Operator Relationship Specialty Start Date End Date Jung Regalado MD [address] [place] [address] PCP - General 01/20/09 documented as of this encounter
--- OUTSIDE RECORDS SUMMARY | 2025-01-17 13:25 | XMS_ITS | Encounter Summary ---
Author Organization [facility] Address [address] [facility] [place] [address] Care Team Providers Care Electrical Plumbing Supervisor Name Role Phone Jung Regalado MD Unavailable [phone] Zhanna Cordero MD Primary Care Provider [phone] Encounter Details Date Type Department Care Team (Late st Contact Info) Description 02/07/2023 Lab Requisition [facility] - DermPath Lab [address] [facility], [place] [address] Hilaria Kaur DO [address] [facility] 3 [place] [address] Social History Tobacco Use Types Packs/Day Years [...] on file Legal Sex Female 6:18 AM LEGAL RECOVERY SPECIALIST Gender Identity Not on file Sexual Orientation Not on file documented as of this encounter Plan of Treatment Upcoming Encounters Date Type Department Care Team (Late st Contact Info) Description 02/28/2025 12:00 PM LEGAL RECOVERY SPECIALIST Office Visit [facility] - Neurology [address] [facility], [place] [address] Steven Vaughan MD [address] [facility] 1L [place] [address] documented as of this encounter Procedures Procedure Name Priority Date/Time Associated Diagnosis Comments DERMATOPATHOLOGY Routine 02/07/2023 9:31 AM LEGAL RECOVERY SPECIALIST documented in this encounter Results * DERMATOPATHOLOGY (02/07/2023 9:31 AM LEGAL RECOVERY SPECIALIST) Case Report Dermatopathology Report Case: [id number] Authorizing Provider: Hilaria Kaur DO Collected: 02/07/2023 09:31 AM Ordering Location: [facility] DermPath Lab Received: 02/08/2023 01:06 PM Pathologist: Hailee Su MD Specimens: A) - Skin, left hand B) - Skin, left lat LE C) - Skin, right wrist 10:50 AM [facility] DERMATOPATHOLOGY LABORATORY Final Diagnosis Specimen A. SKIN, left hand: SQUAMOUS CELL CARCINOMA, WELL DIFFERENTIATED (C44.629) Specimen B. SKIN, left lat LE: SQUAMOUS PROLIFERATION (D48.5) (see microscopic description and comment) Specimen C. SKIN, right wrist: ACTINIC KERATOSIS, LICHENOID (L57.0) 10:50 AM [facility] DERMATOPATHOLOGY LABORATORY at [address]50 LEGAL RECOVERY SPECIALIST Clinical History A-C: R/O NMSC 10:50 AM [facility] DERMATOPATHOLOGY LABORATORY Gross Description [...] 7x7x1 mm. Jar 0. 10:50 AM [facility] DERMATOPATHOLOGY LABORATORY Microscopic Description [...] and some basal vacuolar alteration. 10:50 AM [facility] DERMATOPATHOLOGY LABORATORY Disclaimer An external and internal positive and negative controls are appropriate for the histochemical, immunohistochemical and immunofluorescence stain(s) in this case (if any), except where stated explicitly. The performance characteristics of the stain(s) cited in this report were developed and its performance characteristic determined by the Dermatopathology Laboratory at [facility], directed by Dr. Ncia Diaz. These tests need not be, and therefore are not, approved by the [place] Food and Drug Administration. The tests are used for clinical purposes. Billing Codes Specimen Charges Stain Charges 86918 52811 52546 1 1 1 3 10:50 AM [facility] DERMATOPATHOLOGY LABORATORY Embedded Images 10:50 AM [facility] DERMATOPATHOLOGY LABORATORY Pathology/Cytology TISSUE SPECIMEN FROM SKIN / Unknown 02/07/2023 9:31 AM LEGAL RECOVERY SPECIALIST 02/08/2023 1:06 PM LEGAL RECOVERY SPECIALIST Miscellaneous samples (specimen) TISSUE SPECIMEN FROM SKIN / Unknown 02/07/2023 9:31 AM LEGAL RECOVERY SPECIALIST 02/08/2023 1:06 PM LEGAL RECOVERY SPECIALIST Miscellaneous samples (specimen) TISSUE SPECIMEN FROM SKIN / Unknown 02/07/2023 9:31 AM LEGAL RECOVERY SPECIALIST 02/08/2023 1:06 PM LEGAL RECOVERY SPECIALIST us Hilaria Kaur DO LAB - PATHOLOGY/CYTOLOGY ORDERABLES Final Result DERMATOPATHOLOGY LABORATORY [facility] - Department of Dermatology [facility] Specialized Medicine [address] [place] [address], [address] [phone] documented in this encounter Visit Diagnoses Not on filedocumented in this encounter Care Teams Electrical Plumbing Supervisor Relationship Specialty Start Date End Date Zhanna Cordero MD [address] [place] [address] PCP - General 12/01/21 Jung Regalado MD [address] [place] [address] Family Medicine 03/16/10 documented as of this encounter
--- OUTSIDE RECORDS SUMMARY | 2025-01-17 13:25 | XMS_ITS | Encounter Summary ---
Author Organization [employer] Address [address] [place] [address] Care Team Providers Care Delivery Lead Name Role Phone Jung Regalado MD Primary Care Provider + [phone] Encounter Details Date Type Department Care Team (Late st Contact Info) Description 07/20/2004 Outpatient Historical [facility] [address] [place] [phone] Kaleb Raphael MD [address] [place] [address] Social History Tobacco Use Types Packs/Day Years Used Date Smoking Tobacco: Never Assessed Comments Unknown Sex and Gender Information Value Date Recorded Sex Assigned at Not on file Legal Sex Female 4:20 AM LOSS PREVENTION CONSULTANT Gender Identity Not on file Sexual Orientation Not on file documented as of this encounter Plan of Treatment Not on file documented as of this encounter Visit Diagnoses Not on filedocumented in this encounter Care Teams Delivery Lead Relationship Specialty Start Date End Date Jung Regalado MD [address] [place] [address] PCP - General 01/20/09 documented as of this encounter
--- OUTSIDE RECORDS SUMMARY | 2025-01-17 13:25 | XMS_ITS | Encounter Summary ---
Author Organization [facility] Health Address [address] [place] [address] Care Team Providers Care Electric Stove Installer Name Role Phone Jung Regalado MD Unavailable [phone] Zhanna Cordero MD Primary Care Provider [phone] Encounter Details Date Type Department Care Team (Late st Contact Info) Description 01/23/2024 Lab Requisition [facility] - DermPath Lab [address], [place] [address] Hilaria Kaur DO [address] [facility] 3 [place] [address] Social History Tobacco Use Types Packs/Day Years [...] and heating? Not hard at all 09/16/2023 [place] of Occupat ional Health - Occupational Stress [...] place to sleep or slept in a halfway (including now)? No 09/16/2023 Comments No Sex and Gender Information Value Date Recorded Sex Assigned at Not on file Legal Sex Female 6:18 AM DENTAL INSTRUMENT MAKER Gender Identity Not on file Sexual [...] st Contact Info) Description 02/28/2025 12:00 PM DENTAL INSTRUMENT MAKER Office Visit [facility] - Neurology [address] [place] [address], [facility] [place] [address] Steven Vaughan MD [address] [place] [address] documented as of this encounter Procedures Procedure Name Priority Date/Time Associated Diagnosis Comments DERMATOPATHOLOGY Routine 01/23/2024 11:2 0 AM DENTAL INSTRUMENT MAKER documented in this encounter Results * DERMATOPATHOLOGY (01/23/2024 11:20 AM DENTAL INSTRUMENT MAKER) Case Report Dermatopathology Report Case: [id number] Authorizing Provider: Hilaria Kaur DO Collected: 01/23/2024 11:20 AM Ordering Location: [facility] - Received: 01/24/2024 07:30 AM DermPath Lab Pathologist: Jenny Flores MD Specimens: A) - Skin, right upper arm B) - Skin, left ventral forearm C) - Skin, left anterior LE D) - Skin, right anterior LE 4 4:22 PM DENTAL INSTRUMENT MAKER DERMATOPATHOLOGY LABORATORY Final Diagnosis Specimen A. SKIN, right upper arm: SQUAMOUS CELL CARCINOMA, KERATOACANTHOMA TYPE (C44.622) Specimen B. SKIN, left ventral forearm: COMPOUND MELANOCYTIC NEVUS, IRRITATED (D22.62) (see microscopic description and comment) Specimen C. SKIN, left anterior LE: LARGE CELL ACANTHOMA (D23.9) Specimen D. SKIN, right anterior LE: HYPERPLASTIC (HYPERTROPHIC) ACTINIC KERATOSIS, LICHENOID (L57.0) 4:22 PM [facility] DERMATOPATHOLOGY LABORATORY at [address]22 DENTAL INSTRUMENT MAKER Clinical History A: R/O NMSC B: R/O Melanoma C-D: R/O NMSC 4:22 PM [facility] DERMATOPATHOLOGY LABORATORY Gross Description Specimen A: [...] measuring 6x5x1 mm. Jar 0. 4:22 PM [facility] DERMATOPATHOLOGY LABORATORY Microscopic Description Specimen A. [...] and some basal vacuolar alteration. 4:22 PM [facility] DERMATOPATHOLOGY LABORATORY Disclaimer An external and internal positive and negative controls are appropriate for the histochemical, immunohistochemical and immunofluorescence stain(s) in this case (if any), except where stated explicitly. The performance characteristics of the stain(s) cited in this report were developed and its performance characteristic determined by the Dermatopathology Laboratory at [facility], directed by Dr. Nica Diaz. These tests need not be, and therefore are not, approved by the [place] Food and Drug Administration. The tests are used for clinical purposes. Billing Codes Specimen Charges Stain Charges 22022 51187 89716 20085 1 1 1 1 51177 65551 75859 1 1 1 4 4:22 PM DENTAL INSTRUMENT MAKER DERMATOPATHOLOGY LABORATORY Embedded Images 4 4:22 PM DENTAL INSTRUMENT MAKER DERMATOPATHOLOGY LABORATORY Pathology/Cytology TISSUE SPECIMEN FROM SKIN / Unknown 01/23/2024 11:20 AM DENTAL INSTRUMENT MAKER 01/24/2024 7:30 AM DENTAL INSTRUMENT MAKER Miscellaneous samples (specimen) TISSUE SPECIMEN FROM SKIN / Unknown 01/23/2024 11:20 AM DENTAL INSTRUMENT MAKER 01/24/2024 7:30 AM DENTAL INSTRUMENT MAKER Miscellaneous samples (specimen) TISSUE SPECIMEN FROM SKIN / Unknown 01/23/2024 11:20 AM DENTAL INSTRUMENT MAKER 01/24/2024 7:30 AM DENTAL INSTRUMENT MAKER Miscellaneous samples (specimen) TISSUE SPECIMEN FROM SKIN / Unknown 01/23/2024 11:20 AM DENTAL INSTRUMENT MAKER 01/24/2024 7:30 AM DENTAL INSTRUMENT MAKER us Hilaria Kaur DO LAB - PATHOLOGY/CYTOLOGY ORDERABLES Final Result DERMATOPATHOLOGY LABORATORY [facility] - Department of Dermatology [facility] Special[facility] Medicine [address] [place] [address], [address] [phone] documented in this encounter Visit Diagnoses Not on filedocumented in this encounter Care Teams Electric Stove Installer Relationship Specialty Start Date End Date Zhanna Cordero MD [address] [place] [address] PCP - General 12/01/21 Jung Regalado MD [address] [place] [address] Family Medicine 03/16/10 documented as of this encounter
--- OUTSIDE RECORDS SUMMARY | 2025-01-17 13:25 | XMS_ITS | Encounter Summary ---
Author Organization [facility] Address [address] [place] [address] Care Team Providers Care Biofuels Plant Construction Worker Name Role Phone Jung Regalado MD Primary Care Provider + [phone] Encounter Details Date Type Department Care Team (Latest Contact Info) Description 07/24/2004 Inpatient Historical [facility] Maged Gonzalez MD NO ADDRESS ON FILE BENIGN NEOPLASM OVARY (Primary Dx) Social History Tobacco Use Types Packs/Day Years Used Date Smoking Tobacco: Never Assessed Comments Unknown Sex and Gender Information Value Date Recorded Sex Assigned at Not on file Legal Sex Female 4:20 AM GRINDER SET UP OPERATOR CENTERLESS Gender Identity Not on file Sexual Orientation [...] URINE ORDERABLES Final Result Performing Organization Address [facility] Phone Number INTERFACE SYSTEM Refer to [...] ORDERABLES Final R esult Performing Organization Address [facility] Phone Number INTERFACE SYSTEM Refer to [...] ORDERABLES Final R esult Performing Organization Address City/State/[facility] Co de Phone Number INTERFACE SYSTEM Refer to clinic/hospital department * HEMOGLOBIN AND HEMATOCRIT (07/20/2004 9:52 AM CDT) HEMOGLOBIN 14.0 11.8 - 14.8 g/dL INTERFACE SYSTEM HEMATOCRIT 40.4 35.5 - 44.0 % INTERFACE SYSTEM 07/20/2004 9:52 AM CDT Maged Gonzalez MD HEMATOLOGY ORDERABLES Final R esult Performing Organization Address City/State/[facility] Co de Phone Number INTERFACE [...] Primary documented in this encounter Care Teams Biofuels Plant Construction Worker Relationship Specialty Start Date End Date Jung Regalado MD [address] [place] [address] PCP - General 01/20/09 documented as of this encounter
--- OUTSIDE RECORDS SUMMARY | 2025-01-17 13:25 | XMS_ITS | Encounter Summary ---
Author Organization [facility] Address [address] [place] [address] Care Team Providers Care Medication Technician Name Role Phone Jung Regalado MD Primary Care Provider + [phone] Encounter Details Date Type Department Care Team (Latest Contact Info) Description 10/20/2006 Outpatient Historical HIS [facility] MICHELINE Gonzalez, Maged Pizano MD NO ADDRESS ON FILE Other Screening Mammogram (Primary Dx) Social History Tobacco Use Types Packs/Day Years Used Date Smoking Tobacco: Never Assessed Comments Unknown Sex and Gender Information Value Date Recorded Sex Assigned at Not on file Legal Sex Female 4:20 AM GEAR TOOTH GRINDING MACHINE OPERATOR Gender Identity Not on file Sexual Orientation Not on file documented as of this encounter Plan of Treatment Not on file documented as of this encounter Visit Diagnoses Diagnosis Other screening mammogram- Primary documented in this encounter Care Teams Medication Technician Relationship Specialty Start Date End Date Jung Regalado MD [address] [place] [address] PCP - General 01/20/09 documented as of this encounter
--- OUTSIDE RECORDS SUMMARY | 2025-01-17 13:25 | XMS_ITS | Encounter Summary ---
Author Organization [facility] Address [address] [place] [address] Care Team Providers Care Investigative Analyst Name Role Phone Jung Regalado MD Primary Care Provider + [phone] Encounter Details Date Type Department Care Team (Latest Contact Info) Description 05/29/1999 Outpatient Historical HIS [facility] MICHELINE Gonzalez, Maged Pizano MD NO ADDRESS ON FILE Nonspecific abnormal findings on radiological or other examinations of the breast (Primary Dx) Social History Tobacco Use Types Packs/Day Years Used Date Smoking Tobacco: Never Assessed Comments Unknown Sex and Gender Information Value Date Recorded Sex Assigned at Not on file Legal Sex Female 4:20 AM STAFFING CONSULTANT Gender Identity Not on file Sexual Orientation Not on file documented as of this encounter Plan of Treatment Not on file documented as of this encounter Visit Diagnoses Diagnosis Nonspecific abnormal findings on radiological or other examinations of the breast- Primary documented in this encounter Care Teams Investigative Analyst Relationship Specialty Start Date End Date Jung Regalado MD [address] [place] [address] PCP - General 01/20/09 documented as of this encounter
--- OUTSIDE RECORDS SUMMARY | 2025-01-17 13:25 | XMS_ITS | Clinical Summary ---
Author Organization [facility] Address [address] [place] [address] Care Team Providers Care Social Science Manager Name Role Phone Zhanna Cordero MD Primary Care Provider [phone] Allergies No known active allergies Medications acyclovir [...] (10/09/2019): Added automatically from request for surgery [id number] Chronic pain of left knee 11/17/2018 Chronic [...] 03/16/2010 Surgical History Surgery Date Site/Laterality Comments [place] TOTAL ABDOMINAL HYSTERECT W/WO RMVL TUBE OVARY Hysterectomy - (Added by TW Conv) [place] ARTHROPLASTY GLENOHUMERAL JOINT TOTAL SHOULDER Left Shoulder [...] Relation Name Comments Arthritis Brother 1 Rodolfo gojoseis Arthritis Brother 2 Sheree gombos Arthritis Father [place] Cancer Father [place] boles[place] colon Heart disease Father [place] Hypertension Father [place] Breast cancer Maternal Grandmother Bone cancer Mother Breast cancer Mother Breast cancer Paternal Grandmother Arthritis Sister Mary oreilly Breast cancer Sister Mary oreilly Anesthesia problems Neg Hx Relation Name Status Comments Brother 1 Rodolfo bolesis Alive Brother 2 Sheree gombos Alive Father [...] on file Legal Sex Female 11:28 AM POWDER WORKER Gender Identity Female 06/30/2022 6:11 AM CDT [...] 36.6 C (97.8 F) 01/22/2020 11:10 AM POWDER WORKER Respiratory Rate 20 01/31/2020 10:46 AM POWDER WORKER Oxygen Saturation 97% 11/08/2023 10:01 AM CDT [...] history exists Medical Devices Implanted Type Area Acid Polymerization Operator Device Identifier Shelf Expiration Date Model / Serial / Lot Shoulder Replacement Left: Shoulder Procedures Procedure Name Priority Date/Time Associated Diagnosis Comments SCREENING MAMMOGRAM BILATERAL W GREG Schedule Routine, Read Routine (OP Routine) 08/27/2024 1:33 PM CDT Screening mammogram, encounter for from Last 3 Months or Most Recently Relevant to Health Maintenance Results * Screening Mammogram Bilateral W Greg (08/27/2024 [...] Most Recently Relevant to Health Maintenance Insurance [facility] MEDICARE ADVANTAGE UHC MEDICARE ADVANTAGE [facility] MEDICARE ADVANTAGE Advance Directives For more information, please contact: [phone] Documents on File Type Date Recorded Patient Stereotyper Helper Expl anation ADVANCE DIRECTIVE 12/21/2018 12:00 AM [facility] OF TALENT DEVELOPMENT ANALYST FINANCIAL/MEDICAL Care Teams Social Science Manager Relationship Specialty Start Date End Date Zhanna Cordero MD PCP - General Family Medicine 05/22/20
--- OUTSIDE RECORDS SUMMARY | 2025-01-17 13:25 | XMS_ITS | Encounter Summary ---
Author Organization [facility] Address [address] [place] [address] Care Team Providers Care Mail Delivery Supervisor Name Role Phone Jung Regalado MD Unavailable [phone] Zhanna Cordero MD Primary Care Provider [phone] Encounter Details Date Type Department Care Team (Late st Contact Info) Description 02/23/2023 Lab Requisition [facility] - DermPath Lab [address] [facility] [place] [address] Janis Santiago MD [address] [place] [address] Social History Tobacco Use Types [...] on file Legal Sex Female 6:18 AM EXECUTIVE VICE PRESIDENT AND CHIEF OPERATING OFFICER Gender Identity Not on file Sexual Orientation Not on file documented as of this encounter Plan of Treatment Upcoming Encounters Date Type Department Care Team (Late st Contact Info) Description 02/28/2025 12:00 PM EXECUTIVE VICE PRESIDENT AND CHIEF OPERATING OFFICER Office Visit [facility] - Neurology [address] [facility], [place] [address] Steven Vaughan MD [address] [facility] 1L [place] [address] documented as of this encounter Procedures Procedure Name Priority Date/Time Associated Diagnosis Comments DERMATOPATHOLOGY Routine 02/23/2023 1:27 PM EXECUTIVE VICE PRESIDENT AND CHIEF OPERATING OFFICER documented in this encounter Results * DERMATOPATHOLOGY (02/23/2023 1:27 PM EXECUTIVE VICE PRESIDENT AND CHIEF OPERATING OFFICER) Case Report Dermatopathology Report Case: [id number] Authorizing Provider: Janis Santiago MD Collected: 02/23/2023 01:27 PM Ordering Location: [facility] DermPath Lab Received: 02/24/2023 07:38 AM Pathologist: Antonieta Zazueta MD Specimen: Skin, left middle finger 3 4:44 PM [facility] DERMATOPATHOLOGY LABORATORY Final Diagnosis Specimen A. SKIN, left middle finger: SQUAMOUS CELL CARCINOMA, WELL DIFFERENTIATED (C44.629) (see microscopic description) 3 4:44 PM [facility] DERMATOPATHOLOGY LABORATORY at [address] EXECUTIVE VICE PRESIDENT AND CHIEF OPERATING OFFICER Clinical History R/O SCC 3 4:44 PM [facility] DERMATOPATHOLOGY LABORATORY Gross Description Specimen A: Received is one formalin filled container labeled with the patient's name and designated left middle finger. The specimen consists of a shave biopsy measuring 4x3x1 mm. Jar 0. 3 4:44 PM [facility] DERMATOPATHOLOGY LABORATORY Microscopic Description Specimen A. SKIN, left middle finger: Arising in the epidermis and extending into the dermis there are irregularly shaped aggregates of keratinocytes showing evidence of premature cornification. A focus in which basaloid nests are observed is negative for BerEp4 and is lost on deeper level sections. 3 4:44 PM [facility] DERMATOPATHOLOGY LABORATORY Disclaimer An external and internal positive and negative controls are appropriate for the histochemical, immunohistochemical and immunofluorescence stain(s) in this case (if any), except where stated explicitly. The performance characteristics of the stain(s) cited in this report were developed and its performance characteristic determined by the Dermatopathology Laboratory at [facility], directed by Dr. Nica Diaz. These tests need not be, and therefore are not, approved by the [place] Food and Drug Administration. The tests are used for clinical purposes. Billing Codes Specimen Charges Stain Charges 47941 1 26517 1 3 4:44 PM EXECUTIVE VICE PRESIDENT AND CHIEF OPERATING OFFICER DERMATOPATHOLOGY LABORATORY Embedded Images 3 4:44 PM EXECUTIVE VICE PRESIDENT AND CHIEF OPERATING OFFICER DERMATOPATHOLOGY LABORATORY Pathology/Cytolo gy TISSUE SPECIMEN FROM SKIN / Unknown 02/23/2023 1:27 PM EXECUTIVE VICE PRESIDENT AND CHIEF OPERATING OFFICER 02/24/2023 7:38 AM EXECUTIVE VICE PRESIDENT AND CHIEF OPERATING OFFICER Janis Santiago MD LAB - PATHOLOGY/CYTOLOGY ORDERA BLES Final Result DERMATOPATHOLOGY LABORATORY [facility] - Department of Dermatology [facility] Medicine [address] [place] [address], [address] [phone] documented in this encounter Visit Diagnoses Not on filedocumented in this encounter Care Teams Mail Delivery Supervisor Relationship Specialty Start Date End Date Zhanna Cordero MD [address] [place] [address] PCP - General 12/01/21 Jung Regalado MD [address] [place] [address] Family Medicine 03/16/10 documented as of this encounter
--- OUTSIDE RECORDS SUMMARY | 2025-01-17 13:25 | XMS_ITS | Encounter Summary ---
Author Organization [facility] Address [address] [facility] [place] [address] Care Team Providers Care Gambling Cashier Name Role Phone Jung Regalado MD Unavailable [phone] Zhanna Cordero MD Primary Care Provider [phone] Encounter Details Date Type Department Care Team (Late st Contact Info) Description 10/31/2024 Telephone [facility] - Neurology [address] [place] [address], [place] [address] Steven Vaughan MD [address] [place] [address] [place] [address] Social History Tobacco Use Types [...] and heating? Not hard at all 09/16/2023 [facility] [place] of Occupat ional Health - Occupational Stress [...] on file Legal Sex Female 6:18 AM ACCOUNTING ADMINISTRATOR Gender Identity Not on file Sexual [...] the pt back. Patient Call Back Number: [phone] documented in this encounter Plan of Treatment Upcoming Encounters Date Type Department Care Team (Late st Contact Info) Description 02/28/2025 12:00 PM ACCOUNTING ADMINISTRATOR Office Visit [facility] - Neurology [address] [place] [address], [place]ending [place] [address] Steven Vaughan MD [address] [place] [address] [place] [address] documented as of this encounter Visit Diagnoses Not on filedocumented in this encounter Care Teams Gambling Cashier Relationship Specialty Start Date End Date Zhanna Cordero MD [address] [place] [address] PCP - General 12/01/21 Jung Regalado MD [address] [place] [address] Family Medicine 03/16/10 documented as of this encounter
--- OUTSIDE RECORDS SUMMARY | 2025-01-17 13:25 | XMS_ITS | Encounter Summary ---
Author Organization [id number] Address [address] [place] [address] Care Team Providers Care Cobol Application Developer Name Role Phone Jung Regalado MD Primary Care Provider + [phone] Encounter Details Date Type Department Care Team (Latest Contact Info) Description 09/03/2002 Outpatient Historical HIS [facility] MICHELINE Gonzalez, Maged Pizano MD NO ADDRESS ON FILE SCREENING MAMM-MALIG NEOPL-HI RISK (Primary Dx) Social History Tobacco Use Types Packs/Day Years Used Date Smoking Tobacco: Never Assessed Comments Unknown Sex and Gender Information Value Date Recorded Sex Assigned at Not on file Legal Sex Female 4:20 AM ROUTEMAN Gender Identity Not on file Sexual Orientation Not on file documented as of this encounter Plan of Treatment Not on file documented as of this encounter Visit Diagnoses Diagnosis Screening mammogram for high-risk patient- Primary documented in this encounter Care Teams Cobol Application Developer Relationship Specialty Start Date End Date Jung Regalado MD [address] [place] [address] PCP - General 01/20/09 documented as of this encounter
--- OUTSIDE RECORDS SUMMARY | 2025-01-17 13:25 | XMS_ITS | Encounter Summary ---
Author Organization [facility] Address [address] [place] [address] Care Team Providers Care Reconcilement Clerk Name Role Phone Jung Regalado MD Primary Care Provider + [phone] Encounter Details Date Type Department Care Team (Latest Contact Info) Description 08/28/2001 Outpatient Historical HIS [facility] MICHELINE Gonzalez, Maged Pizano MD NO ADDRESS ON FILE DIFFUS CYSTIC MASTOPATHY (Primary Dx) Social History Tobacco Use Types Packs/Day Years Used Date Smoking Tobacco: Never Assessed Comments Unknown Sex and Gender Information Value Date Recorded Sex Assigned at Not on file Legal Sex Female 4:20 AM MATH AND SCIENCE INSTRUCTOR Gender Identity Not on file Sexual Orientation Not on file documented as of this encounter Plan of Treatment Not on file documented as of this encounter Visit Diagnoses Diagnosis Diffuse cystic mastopathy- Primary documented in this encounter Care Teams Reconcilement Clerk Relationship Specialty Start Date End Date Jung Regalado MD [address] [place] [address] PCP - General 01/20/09 documented as of this encounter
--- OUTSIDE RECORDS SUMMARY | 2025-01-17 13:25 | XMS_ITS | Encounter Summary ---
Author Organization [facility] Address [address] [place] [address] Care Team Providers Care Assistant Librarian Name Role Phone Jung Regalado MD Unavailable [phone] Zhanna Cordero MD Primary Care Provider [phone] Encounter Details Date Type Department Care Team (Late st Contact Info) Description 07/30/2024 Lab Requisition [facility] - Derm[facility] Lab [address] [facility], [place] [address] Hilaria Kaur DO [address] [facility] 3 [place] [address] Social History Tobacco Use Types Packs/Day Years [...] and heating? Not hard at all 09/16/2023 [place] of Occupat ional Health - Occupational Stress [...] in a [facility] (including now)? No 09/16/2023 Comments No Sex and Gender Information Value Date Recorded Sex Assigned at Not on file Legal Sex Female 6:18 AM CONSTRUCTION COST ESTIMATOR Gender Identity Not on file Sexual Orientation [...] of Assessment Author Yes 09/17/2023 5:44 AM Esla Webb RN * Does person have difficulty [...] st Contact Info) Description 02/28/2025 12:00 PM CONSTRUCTION COST ESTIMATOR Office Visit [facility] - Neurology [address] [place] [address], [place] [id number] Steven Vaughan MD [address] [place] [address] documented as of this encounter Procedures Procedure Name Priority Date/Time Associated Diagnosis Comments DERMATOPATHOLOGY Routine 07/30/2024 10:1 9 AM CDT documented in this encounter Results * DERMATOPATHOLOGY (07/30/2024 10:19 AM CDT) Case Report Dermatopathology Report Case: [id number] Authorizing Provider: Hilaria Kaur DO Collected: 07/30/2024 10:19 AM Ordering Location: [facility] - Received: 07/30/2024 04:45 PM DermPath Lab [...] characteristic determined by the Dermatopathology Laboratory at [facility], directed by Dr. Nica Diaz. These tests need not be, and therefore are not, approved by the [place] Food and Drug Administration. The tests are used for clinical purposes. Billing Codes Specimen Charges Stain Charges 18549 1 5 4:34 PM CDT DERMATOPATHOLOGY LABORATORY Embedded Images 5 4:34 PM CDT DERMATOPATHOLOGY LABORATORY Pathology/Cytolo gy TISSUE SPECIMEN FROM SKIN / Unknown 07/30/2024 10:19 AM CDT 07/30/2024 4:45 PM CDT us Hilaria Kaur DO LAB - PATHOLOGY/CYTOLOGY ORDERABLES Final Result DERMATOPATHOLOGY LABORATORY [facility] - Department of Dermatology [facility] Medicine [address] [place] [address], [address]rd Floor [address] [phone] documented in this encounter Visit Diagnoses Not on filedocumented in this encounter Care Teams Assistant Librarian Relationship Specialty Start Date End Date Zhanna Cordero MD [address] [place] [address] PCP - General 12/01/21 Jung Regalado MD [address] [place] [address] Family Medicine 03/16/10 documented as of this encounter
--- OUTSIDE RECORDS SUMMARY | 2025-01-17 13:25 | XMS_ITS | Encounter Summary ---
Author Organization [facility] Address [address] [place] [address] Care Team Providers Care Civil Division Deputy Sheriff Name Role Phone Jung Regalado MD Primary Care Provider + [phone] Encounter Details Date Type Department Care Team (Latest Contact Info) Description 09/23/2005 Outpatient Historical HIS [facility] MICHELINE Gonzalez, Maged Pizano MD NO ADDRESS ON FILE Other Screening Mammogram (Primary Dx) Social History Tobacco Use Types Packs/Day Years Used Date Smoking Tobacco: Never Assessed Comments Unknown Sex and Gender Information Value Date Recorded Sex Assigned at Not on file Legal Sex Female 4:20 AM DIRECTOR OF PRODUCT DESIGN Gender Identity Not on file Sexual Orientation Not on file documented as of this encounter Plan of Treatment Not on file documented as of this encounter Visit Diagnoses Diagnosis Other screening mammogram- Primary documented in this encounter Care Teams Civil Division Deputy Sheriff Relationship Specialty Start Date End Date Jung Regalado MD [address] [place] [address] PCP - General 01/20/09 documented as of this encounter
--- OUTSIDE RECORDS SUMMARY | 2025-01-17 13:25 | XMS_ITS | Encounter Summary ---
Author Organization [facility] Address [address] [place] [address] Care Team Providers Care Production Analyst Name Role Phone Jung Regalado MD Primary Care Provider + [phone] Encounter Details Date Type Department Care Team (Latest Contact Info) Description 01/01/2008 Outpatient Historical HIS [facility] Maged Anne MD NO ADDRESS ON FILE Other Screening Mammogram Social History Tobacco Use Types Packs/Day Years Used Date Smoking Tobacco: Never Assessed Comments Unknown Sex and Gender Information Value Date Recorded Sex Assigned at Not on file Legal Sex Female 4:20 AM MACHINIST Gender Identity Not on file Sexual Orientation [...] AM CDT Narrative 01/02/2008 12:01 PM CDT [facility] [address] [place] [address] Admit Date: 01/01/2008 KAMRAN LAU Sex: F Admit Prov: MAGED ARDON Date: 1945 Primary Care Prov: CMRN: [id number] Room: ANG SSN: [id number] IMAGING SERVICES Ordering Prov: MAGED ARDON Accession Number: [id number] Interpretation BILATERAL SCREENING DIGITAL MAMMOGRAMS WITH COMPUTER [...] AMK Procedure Note Kristy Leon - 01/02/[address] [address] Admit Date: 01/01/2008 KAMRAN LAU Sex: F Admit Prov: MAGED ARDON Date: 1945 [facility] Prov: CMRN: [id number] Room: ANG SSN: [id number] IMAGING SERVICES Ordering Prov: MAGED ARDON Interpretation [...] mammogram documented in this encounter Care Teams Production Analyst Relationship Specialty Start Date End Date Jung Regalado MD [address] [place] [address] PCP - General 01/20/09 documented as of this encounter
--- OUTSIDE RECORDS SUMMARY | 2025-01-17 13:25 | XMS_ITS | Encounter Summary ---
Author Organization [facility] Address [address] [place] [address] Care Team Providers Care Filler Leaf Cutter Long Name Role Phone Jung Regalado MD Primary Care Provider + [phone] Encounter Details Date Type Department Care Team (Latest Contact Info) Description 06/22/2000 Outpatient Historical HIS [facility] MICHELINE Gonzalez, Maged Pizano MD NO ADDRESS ON FILE Other screening mammogram (Primary Dx) Social History Tobacco Use Types Packs/Day Years Used Date Smoking Tobacco: Never Assessed Comments Unknown Sex and Gender Information Value Date Recorded Sex Assigned at Not on file Legal Sex Female 4:20 AM STUDY DIRECTOR Gender Identity Not on file Sexual Orientation Not on file documented as of this encounter Plan of Treatment Not on file documented as of this encounter Visit Diagnoses Diagnosis Other screening mammogram- Primary documented in this encounter Care Teams Filler Leaf Cutter Long Relationship Specialty Start Date End Date Jung Regalado MD [address] [place] [address] PCP - General 01/20/09 documented as of this encounter
--- OUTSIDE RECORDS SUMMARY | 2025-01-17 13:25 | XMS_ITS | Encounter Summary ---
Author Organization [facility] Address [address] [place] [address] Care Team Providers Care Elevator Constructor Name Role Phone Jung Regalado MD Primary Care Provider + [phone] Encounter Details Date Type Department Care Team (Latest Contact Info) Description 09/23/2004 Outpatient Historical HIS [facility] MICHELINE oGnzalez, Maged Pizano MD NO ADDRESS ON FILE SCREENING MAMM-MAILG NEOPL-OTHER (Primary Dx) Social History Tobacco Use Types Packs/Day Years Used Date Smoking Tobacco: Never Assessed Comments Unknown Sex and Gender Information Value Date Recorded Sex Assigned at Not on file Legal Sex Female 4:20 AM TITLE OFFICER Gender Identity Not on file Sexual Orientation Not on file documented as of this encounter Plan of Treatment Not on file documented as of this encounter Visit Diagnoses Diagnosis Other screening mammogram- Primary documented in this encounter Care Teams Elevator Constructor Relationship Specialty Start Date End Date Jung Regalado MD [address] [place] [address] PCP - General 01/20/09 documented as of this encounter
--- OUTSIDE RECORDS SUMMARY | 2025-01-17 13:26 | XMS_ITS | Encounter Summary ---
Author Organization [facility] Address [address] [place] [address] Care Team Providers Care Flare Worker Name Role Phone Jung Regalado MD Unavailable [phone] Jung Regalado MD Primary Care Provider + [phone] Zhanna Cordero MD Primary Care Provider +[phone] Encounter Details Date Type Department Care Team (Late Contact Info) Description 06/07/2018 Lab Requisition [facility] [address] [place] [phone] Abiola Stoddard MD [address] [place] [address] 3 [place] [address] Social History Tobacco Use Types Packs/Day Years Used Date Smoking Tobacco: Never Smokeless Tobacco: Never Alcohol Use Standard Drinks/Week Comments Yes 0 (1 standard drink = 0.6 oz pur e alcohol) Comments No Sex and Gender Information Value Date Recorded Sex Assigned at Not on file Legal Sex Female 6:18 AM CONTENT CREATION MANAGER Gender Identity Not on file Sexual Orientation Not on file documented as of this encounter Plan of Treatment Upcoming Encounters Date Type Department Care Team (Late Contact Info) Description 02/28/2025 12:00 PM CONTENT CREATION MANAGER Office Visit [facility] [address] [place] [phone] Steven Vaughan MD [address] [place] [address] [address] [place] [address] documented as of this encounter Procedures Procedure Name Priority Date/Time Associated Diagnosis Comments DERMATOPATHOLOGY Routine 06/06/2018 12:0 0 AM CDT documented in this encounter Results * DERMATOPATHOLOGY (06/06/2018 12:00 AM CDT) Case Report Dermatopathology Report Case: [id number] Authorizing Provider: Abiola Stoddard MD Collected: 06/06/2018 [...] of a non-oriented ellipse of skin measuring 29u87n6 mm. The epidermal surface is unremarkable. The [...] characteristic determined by the Dermatopathology Laboratory at [facility], directed by Dr. Nica Diaz. These tests need not be, and therefore are not, approved by the [place] Food and Drug Administration. The tests are used for clinical purposes. Billing Codes Specimen Charges Stain Charges 18888 1 9 12:25 PM CDT DERMATOPATHOLOGY LABORATORY Embedded Images 9 12:25 PM CDT DERMATOPATHOLOGY LABORATORY Pathology/Cytolog y TISSUE SPECIMEN FROM SKIN / Unknown 06/06/2018 06/07/2018 7:02 AM CDT Abiola Stoddard MD LAB - PATHOLOGY/CYTOLOGY OR DERABLES Final Result DERMATOPATHOLOGY LABORATORY [facility] - Department of Dermatology [address] [place] [address] [address] [phone] documented in this encounter Visit Diagnoses Not on filedocumented in this encounter Care Teams Flare Worker Relationship Specialty Start Date End Date Jung Regalado MD [address] [place] [address] PCP - General 07/12/17 11/30/21 Zhanna Cordero MD [address] [place] [address] PCP - General 12/01/21 Jung Regalado MD [address] [place] [address] Family Medicine 03/16/10 documented as of this encounter
--- OUTSIDE RECORDS SUMMARY | 2025-01-17 13:26 | XMS_ITS | Clinical Summary ---
Author Organization [facility] [employer] Address [address] [place] [address] Care Team Providers Care Registered Client Associate Name Role Phone Jung Regalado MD Unavailable [phone] Zhanna Cordero MD Primary Care Provider Source Comments [facility] [employer],non-owned Affiliates and Associated Physician Practices is amultiple site organization consisting of ambulatory clinics and hospital sitesin [place], [place], [place] and [place]. This disclosure is being madepursuant to the Care Everywhere program and may not contain all information available regarding this patient. Last updated 17.[facility] [employer] Allergies No known active allergies Medications * [...] (01/30/2020): Added automatically from request for surgery [id number] 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 Depressive disorder 01/30/2014 Diverticulitis of [...] - 11/16/2024 11:59 PM CDT Hospital Encounter [facility] [address] [place] [address] Jazz Torres PA-C Discharge Disposition: Home or Self Care 11/16/2024 Travel 10/31/2024 Telephone [facility] [address] [facility] [place] [address] Steven Vaughan MD 10/24/2024 Orders Only [facility] [address] [place] [address] Jazz Torres PA-C Aneurysm from Last 3 [...] and heating? Not hard at all 09/16/2023 [facility] [place] Occupat ional Health - Occupational Stress [...] place to sleep or slept in a fci (including now)? No 09/16/2023 Comments No Sex and Gender Information Value Date Recorded Sex Assigned at Not on file Legal Sex Female 6:18 AM SCOOP FILLER Gender Identity Not on file Sexual Orientation [...] st Contact Info) Description 02/28/2025 12:00 PM SCOOP FILLER Office Visit [facility] [address] [place] [address], [place] [address] Steven Vaughan MD [address] [place] [address] [place] [address] Health Maintenance Due Date Last Done Comments [...] this topic Medical Devices Implanted Type Area Truck Packer Device Identifier Shelf Expiration Date Model / Serial / Lot Cmpnt Ptlr S 31x9mm Tritanium Strl Lf Implanted:Qty: 1 on 02/05/2022 by Jason Vargas DO at [facility] Right: Knee [employer] 01/08/2027 [id number]-[id number] / / [id number] Bsplt Tib Trthlm 4 Kn Tritanium Implanted:Qty: 1 on 02/05/2022 by Jason Vargas DO at [facility] Right: Knee [employer] 2026 [id number] / / [id number] Cmpnt Fem Kn Rt 3 Crcte Rtn Bead Trthln Implanted:Qty: 1 on 02/05/2022 by Jason Vargas DO at [facility] Right: Knee [employer] 11/21/2026 [id number] / / [id number] Ins Tib 4 9mm Kn X3 Crcte Sub Trthln Implanted:Qty: 1 on 02/05/2022 by Jason Vargas DO at [facility] Right: Knee [employer] 12/02/2026 [id number] -[id number] / / [id number] [...] previously done. Report dictated by Gurmeet Obrien MD(residential construction instructor). > Dictated by Industrial Staff Nurse I, Abhishek Bhandari MD have personally reviewed [...] previously done. Report dictated by Gurmeet Obrien MD(residential construction instructor). > Dictated by Industrial Staff Nurse I, Abhishek Bhandari MD have personally reviewed and interpreted this examination/study. > Interpreting Provider: Abhishek Bhandari MD on 11/16/2024 10:59 AM us Jazz Torres PA-C CT ORDERABLES Final Res ult * (ABNORMAL) ISTAT CREATININE (11/16/2024 10:00 AM CD) Creatinine POCT 1.10 0.60 - 1.30 mg/dL 11/16/2024 10:01 AM [facility] eGFR by CKD-EPI 52(L) >90 mL/min/1.7 3 m2 11/16/2024 10:01 AM [facility] Sample iSTAT HANS 11/16/2024 10:01 AM CDT [facility] Blood BLOOD SPECIMEN / Unknown 11/16/2024 10:00 AM CDT 11/16/2024 10:01 AM CDT us Jazz Torres PA-C LAB - POINT OF CARE ORDER STEPHANIE Final Result [facility] [address] [place] [address], [place] [phone] * (ABNORMAL) GLUCOSE - POINT OF CARE (09/23/2023 12:31 PM CDT) Glucose WB/POC 225(H) 70 - 115 mg/dL 09/23/2023 12:36 PM CDT [facility] Specimen Type Cap Fingerstick 2023 12:36 PM CDT [facility] Blood BLOOD SPECIMEN / Unknown 09/23/2023 12:31 PM CDT 09/23/2023 12:36 PM CDT us Val Gross MD LAB - POINT OF CARE ORDERABLES Final Result [facility] [address] [place] [address], [place] [phone] from Last 3 Months or Most Recently Relevant to Health Maintenance Insurance [facility] MANAGED MEDICARE [place]V [place] [id number] [facility] MANAGED MEDICARE ADV [place] [id number] SELF PAY NO INSURANCE Member Subscriber Plan / Payer (Ef fective for All Dates) Name:Kamran Lau Member ID:Not on file Relation to Subscriber:Not on file Name:GLENDYSHIVKAMRAN Subscriber ID:Not on file Address: [address] [place] [address] Payer ID:Not on file Group ID:Not on file Type:Self Pay Address: [facility] MANAGED MEDICARE ADV SELF PAY NO INSURANCE Member Subscriber Plan / Payer (Ef fective for All Dates) Name:Kamran Lau Member ID:Not on file Relation to Subscriber:Not on file Name:KAMRAN LAU Subscriber ID:Not on file Address: [address] [place], [place] [address] Payer ID:Not on file Group ID:Not on file Type:Self Pay Address: [facility] MEDICARE ADV SELF PAY NO INSURANCE Member Subscriber Plan / Payer (Ef fective for All Dates) Name:Kamran Lau Member ID:Not on file Relation to Subscriber:Not on file Name:KAMRAN LAU Subscriber ID:Not on file Address: [address] [place], [place] [address] Payer ID:Not on file Group ID:Not on file Type:Self Pay Address: [place] [employer] MANAGED MEDICARE ADV Advance Directives Documents on File Type Date Recorded Patient Classification Officer Expl anation Adv Directive/Living Will/POA 02/09/2022 6:44 PM * Full Code (Latest Code Status on File) Date Activated Date Inactivated Comments 09/15/2023 2:57 PM 09/23/2023 5:54 PM * Full Code Date Activated Date Inactivated Comments 02/05/2022 12:13 PM 02/06/2022 3:14 PM Care Teams Registered Client Associate Relationship Specialty Start Date End Date Zhanna Cordero MD [address] [place] [address] PCP - General 12/01/21 Jung Regalado MD [address] [place] [address] Family Medicine 03/16/10
--- OUTSIDE RECORDS SUMMARY | 2025-01-17 13:26 | XMS_ITS | Encounter Summary ---
Author Organization [facility] Address [address] [place] [address] Care Team Providers Care Criminal Defense Attorney Name Role Phone Jung Regalado MD Unavailable [phone] Jung Regalado MD Primary Care Provider + [phone] Zhanna Cordero MD Primary Care Provider [phone] Encounter Details Date Type Department Care Team (Late Contact Info) Description 04/26/2018 Lab Requisition [facility] [address] [place] [phone] Abiola Stoddard MD [address] [place] [address] 3 [place] [address] Social History Tobacco Use Types Packs/Day Years Used Date Smoking Tobacco: Never Smokeless Tobacco: Never Alcohol Use Standard Drinks/Week Comments Yes 0 (1 standard drink = 0.6 oz pur e alcohol) Comments No Sex and Gender Information Value Date Recorded Sex Assigned at Not on file Legal Sex Female 6:18 AM ADVANCED REGISTERED NURSE Gender Identity Not on file Sexual Orientation Not on file documented as of this encounter Plan of Treatment Upcoming Encounters Date Type Department Care Team (Late Contact Info) Description 02/28/2025 12:00 PM ADVANCED REGISTERED NURSE Office Visit [facility] [address] [place] [phone] Steven Vaughan MD [address] [place] [address] [address] [place] [address] documented as of this encounter Visit Diagnoses Not on filedocumented in this encounter Care Teams Criminal Defense Attorney Relationship Specialty Start Date End Date Jung Regalado MD [address] [place] [address] PCP - General 07/12/17 11/30/21 Zhanna Cordero MD [address] [place] [address] PCP - General 12/01/21 Jung Regalado MD [address] [place] [address] Family Medicine 03/16/10 documented as of this encounter
--- OUTSIDE RECORDS SUMMARY | 2025-01-17 13:26 | XMS_ITS | Encounter Summary ---
Author Organization [facility] Address [address] [place] [address] Care Team Providers Care Validation Leader Name Role Phone Jung Regalado MD Unavailable [phone] Jung Regalado MD Primary Care Provider + [phone] Zhanna Cordero MD Primary Care Provider [phone] Encounter Details Date Type Department Care Team (Late Contact Info) Description 04/26/2018 Lab Requisition [facility] [address] [place] [phone] Abiola Stoddard MD [address] [place] [address] 3 [place] [address] Social History Tobacco Use Types Packs/Day Years Used Date Smoking Tobacco: Never Smokeless Tobacco: Never Alcohol Use Standard Drinks/Week Comments Yes 0 (1 standard drink = 0.6 oz pur e alcohol) Comments No Sex and Gender Information Value Date Recorded Sex Assigned at Not on file Legal Sex Female 6:18 AM WOOD COATER Gender Identity Not on file Sexual Orientation Not on file documented as of this encounter Plan of Treatment Upcoming Encounters Date Type Department Care Team (Late Contact Info) Description 02/28/2025 12:00 PM WOOD COATER Office Visit [facility] [address] [place] [phone] Steven Vaughan MD [address] [place] [address] [address] [place] [address] documented as of this encounter Procedures Procedure Name Priority Date/Time Associated Diagnosis Comments DERMATOPATH TECHNICAL REPORT Routine 04/25/2018 12:00 AM WOOD COATER documented in this encounter Results * DERMATOPATH TECHNICAL REPORT (04/25/2018 12:00 AM WOOD COATER) Case Report Dermatopathology Report Case: [id number] Authorizing Provider: Abiola Stoddard MD Collected: 04/25/2018 12:00 AM Pathologist: Freida Diehl MD Received: 04/26/2018 10:46 AM Specimen: Skin, right post thigh 12:27 PM [facility] Addendum 1 At the request of the diagnosing physician, the technical component for [place] [facility]-1/Melan A was performed by [facility] Dermatopathology Laboratory. 12:27 PM [facility] Addendum electronically signed by Freida Diehl MD on 04/28/2018 at 1227 WOOD COATER Clinical History Nevus, irr color, irr border. 12:27 PM [facility] Gross Description Specimen A: Received is one formalin filled container labeled with the patient's name and designated right post thigh. The specimen consists of a shave measuring 35a5k3wt. Jar 0. [facility] Dermatopathology [facility] performed the technical component only. 9 12:27 PM [facility] Embedded Images 12:27 PM [facility] DISCLAIMER An external and [...] used for clinical purposes. 9 12:27 PM [facility] DERMATOPATH[facility]Y [facility]OR[facility]ORY at 1218 WOOD COATER Pathology/Cytolog y TISSUE SPECIMEN FROM SKIN / Unknown 04/25/2018 04/26/2018 10:46 AM WOOD COATER Abiola Stoddard MD LAB - PATHOLOGY/CYTOLOGY OR DERABLES Edited Result - Final DERMATOPATHOLOGY LABORATORY [facility] - Department of Dermatology [address] [place] [address] 5th Floor Lab [address] [phone] documented in this encounter Visit Diagnoses Not on filedocumented in this encounter Care Teams Validation Leader Relationship Specialty Start Date End Date Jung Regalado MD [address] [place] [address] PCP - General 07/12/17 11/30/21 Zhanna Cordero MD [address] [place] [address] PCP - General 12/01/21 Jung Regalado MD [address] [place] [address] Family Medicine 03/16/10 documented as of this encounter
--- OUTSIDE RECORDS SUMMARY | 2025-01-17 13:26 | XMS_ITS | Encounter Summary ---
Author Organization [facility] Care Team Providers Care Medical Oncology Physician Name Role Phone Jung Regalado MD Primary Care Provider [phone] Zhanna Cordero MD Primary Care Provider [phone] Encounter Details Date Type Department Care Team (Latest Contact Info) Description 02/08/2017 Orders Only [facility] ProviderConstance MD [address] [place], [place] [phone] Social History Tobacco Use Types Packs/Day Years Used Date Smoking Tobacco: Never Comments Unknown Sex and Gender Information Value Date Recorded Sex Assigned at Not on file Legal Sex Female 11:28 AM DIAL MAKER Gender Identity Female 06/30/2022 6:11 AM CDT Sexual Orientation Straight 06/30/2022 6: 11 AM CDT documented as of this encounter Functional Status documented as of this encounter Plan of Treatment Not on file documented as of this encounter Procedures Procedure Name Priority Date/Time Associated Diagnosis Comments PROCEDURE - RESULT 02/10/2017 12 :00 AM DIAL MAKER PROCEDURE - RESULT 02/08/2017 12 :00 AM DIAL MAKER documented in this encounter Results * PROCEDURE - RESULT (02/10/2017 12:00 AM DIAL MAKER) Narrative 02/10/2017 12:00 AM DIAL MAKER Ordered by an unspecified provider. us Historical Provider Final Res ult * PROCEDURE - RESULT (02/08/2017 12:00 AM DIAL MAKER) Narrative 02/08/2017 12:00 AM DIAL MAKER Ordered by an unspecified provider. us Historical Provider Final Res ult documented in this encounter Visit Diagnoses Not on filedocumented in this encounter Care Teams Medical Oncology Physician Relationship Specialty Start Date End Date Jung Regalado MD [address] [place] [address] PCP - General 10/05/16 05/21/20 Zhanna Cordero MD [address] [place] [address] PCP - General Family Medicine 05/22/20 documented as of this encounter
--- OUTSIDE RECORDS SUMMARY | 2025-01-17 13:26 | XMS_ITS | Clinical Summary ---
Author Organization [facility] Care Team Providers Care Production Planning Manager Name Role Phone Unavailable Primary Care Provider Unavailabl e Social History Tobacco Use Types Packs/Day Years Used Date Smoking Tobacco: Never Assessed Comments Unknown Sex and Gender Information Value Date Recorded Sex Assigned at Not on file Legal Sex Female 2:08 PM BRAKE SHOE REBUILDER Gender Identity Not on file Sexual Orientation [...]
--- OUTSIDE RECORDS SUMMARY | 2025-01-17 13:26 | XMS_ITS | Encounter Summary ---
Author Organization [facility] Health Address [address] [facility] [place] [address] Care Team Providers Care Iron Cutter Name Role Phone Jung Regalado MD Unavailable [phone] Zhanna Cordero MD Primary Care Provider Encounter Details Date Type Department Care Team (Late st Contact Info) Description 02/22/2024 Lab Requisition [facility] - DermPath Lab [address] [facility], [place] [address] Hilaria Kaur DO [address] [facility] 3 [place] [address] Social History Tobacco Use Types Packs/Day Years [...] and heating? Not hard at all 09/16/2023 [employer] [facility] - Occupational Stress [...] in a detention (including now)? No 09/16/2023 Comments No Sex and Gender Information Value Date Recorded Sex Assigned at Not on file Legal Sex Female 6:18 AM PATIENT RELATIONS LIAISON Gender Identity Not on file Sexual Orientation [...] st Contact Info) Description 02/28/2025 12:00 PM PATIENT RELATIONS LIAISON Office Visit [facility] - Neurology [address] [place] [address], [place] [id number] Steven Vaughan MD [address] [place] [address] documented as of this encounter Procedures Procedure Name Priority Date/Time Associated Diagnosis Comments DERMATOPATHOLOGY Routine 02/22/2024 8:43 AM PATIENT RELATIONS LIAISON documented in this encounter Results * DERMATOPATHOLOGY (02/22/2024 8:43 AM PATIENT RELATIONS LIAISON) Case Report Dermatopathology Report Case: [id number] Authorizing Provider: Hilaria Kaur DO Collected: 02/22/2024 08:43 AM Ordering Location: [facility] - Received: 02/22/2024 03:46 PM DermPath Lab Pathologist: Antonieta Zazueta MD Specimen: Skin, right upper arm 4 12:06 PM PATIENT RELATIONS LIAISON DERMATOPATHOLOGY LABORATORY Final Diagnosis Specimen A. SKIN, right upper arm: DERMAL SCAR RESIDUAL SQUAMOUS CELL CARCINOMA NOT IDENTIFIED (L90.5) 4 12:06 PM PATIENT RELATIONS LIAISON DERMATOPATHOLOGY LABORATORY at 1206 PATIENT RELATIONS LIAISON Clinical History Bx proven, R/O SCC 4 12:06 PM [facility] DERMATOPATHOLOGY LABORATORY Gross Description Specimen A: Received is one formalin filled container labeled with the patient's name and designated right upper arm. The specimen consists of a non-oriented ellipse of skin measuring [id number] mm. The epidermal surface is unremarkable. The margin is inked green. The 12 o'clock and 6 o'clock tips are submitted in cassette 1. The remainder of the ellipse is serially sectioned and submitted in cassette 2. Jar 0. 4 12:06 PM [facility] DERMATOPATHOLOGY LABORATORY Microscopic Description Specimen A. SKIN, right upper arm: There are fibroblasts and collagen bundles oriented parallel to the skin surface. There are elongated blood vessels, some of which are oriented perpendicular to the skin surface. No residual squamous cell carcinoma is identified. 4 12:06 PM [facility] DERMATOPATHOLOGY LABORATORY Disclaimer An external and internal positive and negative controls are appropriate for the histochemical, immunohistochemical and immunofluorescence stain(s) in this case (if any), except where stated explicitly. The performance characteristics of the stain(s) cited in this report were developed and its performance characteristic determined by the Dermatopathology Laboratory at [facility], directed by Dr. Nica Diaz. These tests need not be, and therefore are not, approved by the [place] Food and Drug Administration. The tests are used for clinical purposes. Billing Codes Specimen Charges Stain Charges 00852 1 4 12:06 PM [facility] DERMATOPATHOLOGY LABORATORY Embedded Images 4 12:06 PM [facility] DERMATOPATHOLOGY LABORATORY Pathology/Cytolo gy TISSUE SPECIMEN FROM SKIN / Unknown 02/22/2024 8:43 AM PATIENT RELATIONS LIAISON 02/22/2024 3:46 PM PATIENT RELATIONS LIAISON us Hilaria Kaur DO LAB - PATHOLOGY/CYTOLOGY ORDERABLES Final Result DERMATOPATHOLOGY LABORATORY [facility] - Department of Dermatology [facility] Medicine [address] [place] [address], [address] [phone] documented in this encounter Visit Diagnoses Not on filedocumented in this encounter Care Teams Iron Cutter Relationship Specialty Start Date End Date Zhanna Cordeor MD [address] [place] [address] PCP - General 12/01/21 Jung Regalado MD [address] [place] [address] Family Medicine 03/16/10 documented as of this encounter
--- OUTSIDE RECORDS SUMMARY | 2025-01-17 13:26 | XMS_ITS | Clinical Summary ---
Author Organization [facility] Address [address] [place] [address] Phone Care Team Providers Care Box Maker Paperboard Name Role Phone Jung Regalado MD Primary Care Provider [phone] Allergies No known active allergies Medications acyclovir [...] Encounters Date Type Department Care Team Description 12/18/2024 External Device Data STL ABSTRACTION Provider, Abstract [...] on file Legal Sex Female 4:20 AM TRAFFIC SURVEY TECHNICIAN Gender Identity Not on file Sexual [...] Relevant to Health Maintenance Insurance Care Teams Box Maker Paperboard Relationship Specialty Start Date End Date Jung Regalado MD [address] [place] [address] PCP - General 01/20/09
--- OUTSIDE RECORDS SUMMARY | 2025-01-17 13:26 | XMS_ITS | Encounter Summary ---
Author Organization [facility] Healthcare Address [address] [place] [address] Care Team Providers Care Punch Machine Operator Name Role Phone Jung Regalado MD Primary Care Provider [phone] Zhanna Cordero MD Primary Care Provider Encounter Details Date Type Department Care Team (Late st Contact Info) Description 09/24/2019 Telephone [facility] Imaging [address] [place] [address] [address]ela Beltran RT Social History Tobacco Use Types Packs/Day Years Used Date Smoking Tobacco: Never Smokeless Tobacco: Never Alcohol Use Standard Drinks/Week Comments Yes 0 (1 standard drink = 0.6 oz pur e alcohol) socially Comments Unknown Sex and Gender Information Value Date Recorded Sex Assigned at Not on file Legal Sex Female 11:28 AM RELIABILITY MANAGER Gender Identity Female 06/30/2022 6:11 AM CDT Sexual Orientation Straight 06/30/2022 6: 11 AM CDT Occupation Industry Job Start Date Job End Date retired Not on file Not on file Not on file documented as of this encounter Plan of Treatment Not on file documented as of this encounter Visit Diagnoses Not on filedocumented in this encounter Care Teams Punch Machine Operator Relationship Specialty Start Date End Date Jung Regalado MD [address] [place] [address] PCP - General 10/05/16 05/21/20 Zhanna Cordero MD [address] [place] [address] PCP - General Family Medicine 05/22/20 documented as of this encounter
== END 2025-01-16 13:54 | disposition home or self-care (01) ==
LOC: ANHIMG 13:56
PROVIDERS: PCP Family Medicine; Visit Provider Student in an Organized Health Care Education/Training Program
DX: R89.6 Abnormal cytological findings in specimens from other organs, systems and tissues (principal); C82.11 Follicular lymphoma grade II, lymph nodes of head, face, and neck; D72.89 Other specified disorders of white blood cells; R71.8 Other abnormality of red blood cells; E04.1 Nontoxic single thyroid nodule
CPT/HCPCS: 10005; 88172; 88173; 88177; 88305

== ENCOUNTER 2025-03-01 08:01 | Outpatient (CLI) | payer MEDICARE, SELFPAY ==
--- OUTSIDE RECORDS SUMMARY | 2025-02-28 12:00 | XMS_ITS | Encounter Summary ---
Author Organization [facility] Address [address] [facility] [place] [address] Care Team Providers Care It Security Project Manager Name Role Phone Jung Regalado MD Unavailable [phone] Zhanna Cordero MD Primary Care Provider [phone] Reason for Visit * Consult, Test & Treat (Routine) - Closed Specialty Diagnoses / Procedures Referred By Rachel clarke Referred To Contact Neurology Diagnoses Follow-up exam Zhanna Cordero MD [address] [place] [address] Phone: tel: fax: Steven Vaughan MD [address] [place] [address] [place] [address] Phone: tel: fax: Referral ID Status Reason Start Date Expiration Date Visits Re quested Visits Authorized [id number] Closed 11/24/2023 11/23/2024 12 12 Encounter Details Date Type Department Care Team (Late st Contact Info) Description 02/28/2025 12:00 PM PRODUCT ASSURANCE ENGINEER Office Visit [facility] - Neurology [address] [place] [address], [place] [address] Steven Vaughan MD [address] [place] [address] [place] [address] 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 Not hard at all 09/16/2023 [facility] - Occupational Stress Questionnaire Answer Date [...] place to sleep or slept in a half-way (including now)? No 09/16/2023 Comments No Sex and Gender Information Value Date Recorded Sex Assigned at Not on file Legal Sex Female 6:18 AM PRODUCT ASSURANCE ENGINEER Gender Identity Not on file Sexual Orientation Not on file documented as of this encounter Last Filed Vital Signs Vital Sign Reading Time Taken Comments Blood Pressure 116/70 02/28/2025 11:34 AM PRODUCT ASSURANCE ENGINEER Pulse 109 02/28/2025 11:34 AM PRODUCT ASSURANCE ENGINEER Temperature - - Respiratory Rate 14 02/28/2025 11:34 AM PRODUCT ASSURANCE ENGINEER Oxygen Saturation - - Inhaled Oxygen Concentration - - Weight 80.7 kg (178 lb) 02/28/2025 11:34 AM PRODUCT ASSURANCE ENGINEER Height 157.5 cm (5' 2) 02/28/2025 11:34 AM PRODUCT ASSURANCE ENGINEER Body Mass Index 32.56 02/28/2025 11:34 AM PRODUCT ASSURANCE ENGINEER documented in this encounter Functional Status * Is person [...] Yes 09/17/2023 5:44 AM Elsa Webb RN documented as of this encounter Mental Status * Does person have difficulty concentrating/remembering/making decisions? Answer Entry Date Author Yes 09/17/2023 5:44 AM Elsa Webb RN documented in this encounter Progress Notes * Steven Vaughan MD - 02/28/2025 12:02 PM CST Reason for Visit: Cerebral Aneurysm Hx: The pt is a 79y F who presented who was was admitted in September 2023 with AMS. She was worked up for stroke with MR, seizure with EEG, and STREET COMMISSIONER infection with an LP. These studies were unrevealing. Iwas ultimately determined that she may have had a combination of medication overdose and hospital delerium. She was incidentally found to have an unruptured right paraclinoidal ICA aneurysm for whichshe is being seen today. There is no hx of SAH-like episodes. Repeat CTA shows no aneurysm growth PE: A and O x 3 CN: Chronic lip spasms, but otherwise wnl Motor: No focal deficits - reports some incoordination with her right hand Gait: wnl A/P: Her aneurysm has been stable and we will fu as needed. UCT ASSURANCE ENGINEER documented in this encounter Plan of Treatment Not on file documented as of this encounter Visit Diagnoses Diagnosis Aneurysm of cavernous portion of right internal carotid artery (HCC)- Primary documented in this encounter Care Teams It Security Project Manager Relationship Specialty Start Date End Date Zhanna Cordero MD [address] [place] [address] PCP - General 12/01/21 Jung Regalado MD [address] [place] [address] Family Medicine 03/16/10 documented as of this encounter
--- OUTSIDE RECORDS SUMMARY | 2025-03-01 08:04 | XMS_ITS | Encounter Summary ---
Author Organization [facility] Health Address [address] [facility] [place] [address] Care Team Providers Care Mcat Tutor Name Role Phone Jung Regalado MD Unavailable [phone] Zhanna Cordero MD Primary Care Provider [phone] Encounter Details Date Type Department Care Team (Latest Contact Info) Description 02/28/2025 Travel Social History Tobacco Use Types Packs/Day Years [...] and heating? Not hard at all 09/16/2023 [facility] [place] - Occupational Stress [...] place to sleep or slept in a nursing home (including now)? No 09/16/2023 Comments No Sex and Gender Information Value Date Recorded Sex Assigned at Not on file Legal Sex Female 6:18 AM CORE MICROARCHITECT Gender Identity Not on file Sexual Orientation [...] on filedocumented in this encounter Care Teams Mcat Tutor Relationship Specialty Start Date End Date Zhanna Cordero MD [address] [place] [address] PCP - General 12/01/21 Jung Regalado MD [address] [place] [address] Family Medicine 03/16/10 documented as of this encounter
--- OUTSIDE RECORDS SUMMARY | 2025-03-01 08:04 | XMS_ITS | Clinical Summary ---
Author Organization [facility] Address [address] [place] [address] Care Team Providers Care Investigation Specialist Name Role Phone Zhanna Cordero MD Primary Care Provider [phone] Allergies No known active allergies Medications ELIQUIS 5 MG tablet Take 1 tablet (5 mg total) by mouth 2 (two) times daily. Active Biotin 10 MG Cap Take 5,000 mcg by mouth daily. 01/18/20 24 Active Cholecalcifero l (VITAMIN D) 125 MCG (5000 UT) Cap Take 125 mcg by mouth daily. 01/18/20 24 Active cyclobenzaprin e (FLEXERIL) 10 MG tablet Take 1 tablet (10 mg total) by mouth 3 (three) times daily as needed. Active potassium chloride CR (MICRO-K) 10 MEQ CR capsule Take 1 capsule (10 mEq total) by mouth twice a week. 02/03/20 23 Active vitamin D2, ergocalciferol , (DRISDOL) 1.25 mg capsule Take 1 capsule (1.25 mg total) by mouth once a week. 01/25/20 24 Active metroNIDAZOLE (METROGEL) 1 % gel APPLY TOPICALLY TO FACE DAILY 01/27/20 24 Active triamterene-hy droCHLOROthiaz georges (DYAZIDE) 37.5-25 MG capsule Take 1 capsule by mouth daily. 90 capsule 3 02/03/20 24 Active oxybutynin XL (DITROPAN-XL) 10 MG 24 hr tablet 08/02/19 25 Active nystatin (MYCOSTATIN) powder APPLY TWICE DAILY TO SKIN FOLDS NEEDED 07/31/19 25 Active metoprolol tartrate (LOPRESSOR) 50 MG tablet Take 1 tablet (50mg) 1 hour prior to CTA 10/22/2024 1 tablet 10/19/19 25 Active DILT-XR 240 MG 24 hr capsule Take 1 capsule by mouth once daily 90 capsule 02/20/20 25 Active DILT-XR 240 MG 24 hr capsule Take 1 capsule (240 mg total) by mouth daily. 90 capsule 3 02/03/20 24 025 Discontinued Active Problems Problem Noted Date Diagnosed Date Persistent atrial fibrillation 08/23/2024 Encounters Date Type Department Care Team Description 01/16/2025 [facility] Documentation [facility], [place] [address] Ralf Abdalla MD Research 01/16/2025 Telephone [facility], [address] [address] Ralf Abdalla MD Research 01/02/2025 Telephone [facility], [address] [address] Savita Meredith RN Anticoagulation from Last 3 Months Social History Tobacco Use Types Packs/Day Years Used Date Smoking Tobacco: Never Assessed Comments Unknown Sex and Gender Information Value Date Recorded Sex Assigned at Female 10/22/2024 12:38 PM CDT Legal Sex Female 10:22 PM SHREDDED FILLER HOPPER FEEDER Gender Identity Not on file Sexual [...] Care Team (Late st Contact Info) Description 04/05/2025 10:30 AM SHREDDED FILLER HOPPER FEEDER Office Visit [facility] [address] Aram Garcia MD [facility] [address] [place] [address] Health Maintenance Due Date Last Done Comments Hepatitis C 12/08/1965 DTaP, Tdap and Td Vaccines (1 - Tdap) 12/08/1966 Pneumococcal Vaccine: 50+ Years (1 of 1 - PCV) 12/08/1997 Annual Medicare Wellness Visit 12/08/2012 COVID-19 Vaccine ( season) 2024 03/19/2021, 03/18/2021, 05/21/2020, Additional history exists Influenza Adult (#1) 2024 12/07/2023, 11/13/2023, 12/22/2022, Additional history exists Zoster Vaccines Completed 02/23/2021, 12/02/2020 RSV Immunization or 60+ Years Completed 12/22/2022 Dexa Scan (General) Completed 07/19/2023, 07/19/2023, 07/15/2022, Additional history exists Hepatitis A Vaccines Aged Out No long er eligible based on patient's age to complete this topic Meningococcal B Vaccine Aged Out No l onger eligible based on patient's age to complete this topic Meningococcal Vaccine Aged Out No edgar amanda eligible based on patient's age to complete this topic RSV Immunizations Under 20 Months Aged Out No longer eligible based on patient's age to complete this topic Insurance MEDICARE Care Teams Investigation Specialist Relationship Specialty Start Date End Date Zhanna Cordero MD [address] [place] [address] PCP - General FAMILY PRACTICE 11/25/23
--- OUTSIDE RECORDS SUMMARY | 2025-03-01 08:04 | XMS_ITS | Encounter Summary ---
Author Organization [facility] Health Address [address] [place] [address] Care Team Providers Care Beverage Distiller Name Role Phone Jung Regalado MD Unavailable [phone] Zhanna Cordero MD Primary Care Provider [phone] Encounter Details Date Type Department Care Team (Late st Contact Info) Description 01/23/[address] [facility] - DermPath Lab [address] [facility], [place] [address] Hilaria Kaur DO [address] [facility] 3 [place] [address] Social History Tobacco Use Types Packs/Day Years [...] and heating? Not hard at all 09/16/2023 [place] [facility] Occup[facility] ional Health - Occupational Stress [...] on file Legal Sex Female 6:18 AM JALOUSIE INSTALLER Gender Identity Not on file Sexual [...] Comments DERMATOPATHOLOGY Routine 01/23/2024 11:2 0 AM JALOUSIE INSTALLER documented in this encounter Results * DERMATOPATHOLOGY (01/23/2024 11:20 AM JALOUSIE INSTALLER) Case Report Dermatopathology Report Case: [id number] Authorizing Provider: Hilaria Kaur DO Collected: 01/23/2024 11:20 AM Ordering Location: [facility] - Received: 01/24/2024 07:30 AM DermPath Lab Pathologist: Jenny Flores MD Specimens: A) - Skin, right upper arm B) - Skin, left ventral forearm C) - Skin, left anterior LE D) - Skin, right anterior LE 4:22 PM JALOUSIE INSTALLER DERMATOPATHOLOGY LABORATORY Final Diagnosis Specimen A. SKIN, right upper arm: SQUAMOUS CELL CARCINOMA, KERATOACANTHOMA TYPE (C44.622) Specimen B. SKIN, left ventral forearm: COMPOUND MELANOCYTIC NEVUS, IRRITATED (D22.62) (see microscopic description and comment) Specimen C. SKIN, left anterior LE: LARGE CELL ACANTHOMA (D23.9) Specimen D. SKIN, right anterior LE: HYPERPLASTIC (HYPERTROPHIC) ACTINIC KERATOSIS, LICHENOID (L57.0) 4:22 PM JALOUSIE INSTALLER DERMATOPATHOLOGY LABORATORY at 1622 JALOUSIE INSTALLER Clinical History A: R/O NMSC B: R/O Melanoma C-D: R/O NMSC 4:22 PM JALOUSIE INSTALLER DERMATOPATHOLOGY LABORATORY Gross Description Specimen A: Received [...] 6x5x1 mm. Jar 0. 4 4:[address] [facility] DERMATOPATHOLOGY LABORATORY Microscopic Description Specimen A. [...] some basal vacuolar alteration. 4 4:[address] [facility] DERMATOPATHOLOGY LABORATORY Disclaimer An external and internal positive and negative controls are appropriate for the histochemical, immunohistochemical and immunofluorescence stain(s) in this case (if any), except where stated explicitly. The performance characteristics of the stain(s) cited in this report were developed and its performance characteristic determined by the Dermatopathology Laboratory at [facility], directed by Dr. Nica Diaz. These tests need not be, and therefore are not, approved by the [place] Food and Drug Administration. The tests are used for clinical purposes. Billing Codes Specimen Charges Stain Charges 09044 64865 78122 39588 1 1 1 1 73231 23236 12939 1 1 1 4 4:22 PM JALOUSIE INSTALLER DERMATOPATHOLOGY LABORATORY Embedded Images 4 4:22 PM JALOUSIE INSTALLER DERMATOPATHOLOGY LABORATORY Pathology/Cytology TISSUE SPECIMEN FROM SKIN / Unknown 01/23/2024 11:20 AM JALOUSIE INSTALLER 01/24/2024 7:30 AM JALOUSIE INSTALLER Miscellaneous samples (specimen) TISSUE SPECIMEN FROM SKIN / Unknown 01/23/2024 11:20 AM JALOUSIE INSTALLER 01/24/2024 7:30 AM JALOUSIE INSTALLER Miscellaneous samples (specimen) TISSUE SPECIMEN FROM SKIN / Unknown 01/23/2024 11:20 AM JALOUSIE INSTALLER 01/24/2024 7:30 AM JALOUSIE INSTALLER Miscellaneous samples (specimen) TISSUE SPECIMEN FROM SKIN / Unknown 01/23/2024 11:20 AM JALOUSIE INSTALLER 01/24/2024 7:30 AM JALOUSIE INSTALLER us Hilaria Kaur DO LAB - PATHOLOGY/CYTOLOGY ORDERABLES Final Result Performing Organization Address City/State/[facility] Co de Phone Number DERMATOPATHOLOGY LABORATORY [facility] - Department of Dermatology [facility] Medicine [address] [place] [address], [address] [phone] documented in this encounter Visit Diagnoses Not on filedocumented in this encounter Care Teams Beverage Distiller Relationship Specialty Start Date End Date Zhanna Cordero MD [address] [place] [address] PCP - General 12/01/21 Jung Regalado MD [address] [place] [address] Family Medicine 03/16/10 documented as of this encounter
--- OUTSIDE RECORDS SUMMARY | 2025-03-01 08:04 | XMS_ITS | Encounter Summary ---
Author Organization [facility] Address [address] [place] [address] Care Team Providers Care Street Commissioner Name Role Phone Zhanna Cordero MD Primary Care Provider [phone] Encounter Details Date Type Department Care Team (Late st Contact Info) Description 08/27/2024 Abstract [facility], [address] [place], [place] [id number] Flavio Keenan MA Social History Tobacco Use Types Packs/Day Years Used Date Smoking Tobacco: Never Assessed Comments Unknown Sex and Gender Information Value Date Recorded Sex Assigned at Female 10/22/2024 12:38 PM CDT Legal Sex Female 10:22 PM NURSING PROGRAM COORDINATOR Gender Identity Not on file Sexual Orientation Not on file documented as of this encounter Plan of Treatment Upcoming Encounters Date Type Department Care Team (Late st Contact Info) Description 04/05/2025 10:30 AM NURSING PROGRAM COORDINATOR Office Visit [facility] [address] Aram Garcia MD [facility] [address] [place], [place] [id number] documented as of this encounter Procedures Procedure Name Priority Date/Time Associated Diagnosis Comments THYROID STIM HORMONE TSH Routine 08/24/2024 documented in this encounter Results * THYROID STIM HORMONE TSH (08/24/2024) TSH 2.040 us Default History Genericprovider LABORATORY Edited Result - Final documented in this encounter Visit Diagnoses Not on filedocumented in this encounter Care Teams Street Commissioner Relationship Specialty Start Date End Date Zhanna Cordero MD [address] [place] [address] PCP - General FAMILY PRACTICE 11/25/23 documented as of this encounter
--- OUTSIDE RECORDS SUMMARY | 2025-03-01 08:04 | XMS_ITS | Encounter Summary ---
Author Organization [facility] Address [address] [facility] [place] [address] Care Team Providers Care Head Of Digital Advertising & Integration Name Role Phone Jung Regalado MD Unavailable [phone] Zhanna Cordero MD Primary Care Provider Encounter Details Date Type Department Care Team (Late st Contact Info) Description 02/14/2025 Lab Requisition [facility] - DermPath Lab [address] [facility], [place] [address] Hilaria Kaur DO [address] [facility] 3 [place] [address] Neoplasm of uncertain behavior of skin Social History Tobacco Use Types Packs/Day Years [...] Never 09/16/2023 Overall Financial Resource Strain (CARDIA) [place] r Date Recorded How hard is it for you to pa y for the very basics like food, housing, medical care, and heating? Not hard at all 09/16/2023 [place] [facility] - Occupational Stress [...] place to sleep or slept in a jail (including now)? No 09/16/2023 Comments No Sex and Gender Information Value Date Recorded Sex Assigned at Not on file Legal Sex Female 6:[address] WAITER/WAITRESS Gender Identity Not on file Sexual Orientation [...] of Assessment Author Yes 09/17/2023 5:44 AM GAYATRIT Elsa Matute RN documented as of this encounter Mental Status * Does person have difficulty concentrating/remembering/making decisions? Answer Entry Date Author Yes 09/17/2023 5:44 AM Elsa Webb RN documented in this encounter Plan of Treatment Not on file documented as of this encounter Procedures Procedure Name Priority Date/Time Associated Diagnosis Comments DERMATOPATHOLOGY Routine 02/14/2025 9:[address] WAITER/WAITRESS Neoplasm of uncertain behavior of skin documented in this encounter Results * DERMATOPATHOLOGY (02/14/2025 9:[address] WAITER/WAITRESS) Case Report Dermatopathology Report Case: [id number] Authorizing Provider: Hilaria Kaur DO Collected: 02/14/2025 09:00 AM Ordering Location: [facility] - Received: 02/18/2025 06:33 AM DermPath Lab Pathologist: Cortez Diaz MD Specimen: Skin, right distal pretibial region 5 4:[address] WAITER/WAITRESS DERMATOPATHOLOGY LABORATORY Final Diagnosis Specimen A. SKIN, right distal pretibial region: LICHEN PLANUS-LIKE KERATOSIS (BENIGN LICHENOID KERATOSIS) (L82.1) 5 4:10 PM [facility] DERMATOPATHOLOGY [facility]ORATORY at [address] WAITER/WAITRESS Clinical History Neoplasm of uncertain behavior vs. Irritated Seborrheic Keratosis vs. SCC vs. BCC 5 4:[address] WAITER/WAITRESS DERMATOPATHOLOGY LABORATORY Gross Description Specimen A: Received is one formalin filled container labeled with the patient's name and designated right distal pretibial region. The specimen consists of a shave biopsy measuring 9x8x1 mm. Jar 0. 5 4:10 PM [facility] DERMATOPATHOLOGY [facility]ORATORY Microscopic Description Specimen A. SKIN, right distal pretibial region: The epidermis is mildly acanthotic. There is a lichenoid infiltrate with vacuolar changes of basilar keratinocytes and scattered necrotic keratinocytes. 5 4:10 PM [facility] DERMATOPATHOLOGY [facility]ORATORY Disclaimer An external and internal positive and negative controls are appropriate for the histochemical, immunohistochemical and immunofluorescence stain(s) in this case (if any), except where stated explicitly. The performance characteristics of the stain(s) cited in this report were developed and its performance characteristic determined by the Dermatopathology Laboratory at [facility], directed by Dr. Nica Diaz. These tests need not be, and therefore are not, approved by the [place] Food and Drug Administration. The tests are used for clinical purposes. Billing Codes Specimen Charges Stain Charges 65034 1 5 4:[address] WAITER/WAITRESS DERMATOPATHOLOGY LABORATORY Embedded Images 5 4:[address] WAITER/WAITRESS DERMATOPATHOLOGY LABORATORY Pathology/Cytolo gy TISSUE SPECIMEN FROM SKIN / Unknown 02/14/2025 9:[address] WAITER/WAITRESS 02/18/2025 6:[address] WAITER/WAITRESS us Hilaria Kaur DO LAB - PATHOLOGY/CYTOLOGY ORDERABLES Final Result DERMATOPATHOLOGY LABORATORY [facility] - Department of Dermatology [facility] Special[facility] [address] [place] [address], [address]rd Floor [address] [phone] documented in this encounter Visit Diagnoses Diagnosis Neoplasm of uncertain behavior of skin documented in this encounter Care Teams Head Of Digital Advertising & Integration Relationship Specialty Start Date End Date Zhanna Cordero MD [address] [place] [address] PCP - General 12/01/21 Jung Regalado MD [address] [place] [address] Family Medicine 03/16/10 documented as of this encounter
--- OUTSIDE RECORDS SUMMARY | 2025-03-01 08:05 | XMS_ITS | Encounter Summary ---
Author Organization [facility] Address [address] [place] [address] Care Team Providers Care Mandate Retail Service Merchandiser Name Role Phone Jung Regalado MD Primary Care Provider + [phone] Encounter Details Date Type Department Care Team (Latest Contact Info) Description 08/28/2001 Outpatient Historical HIS [facility] MICHELINE Gonzalez, Maged Pizano MD NO ADDRESS ON FILE DIFFUS CYSTIC MASTOPATHY (Primary Dx) Social History Tobacco Use Types Packs/Day Years Used Date Smoking Tobacco: Never Assessed Comments Unknown Sex and Gender Information Value Date Recorded Sex Assigned at Not on file Legal Sex Female 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
--- OUTSIDE RECORDS SUMMARY | 2025-03-01 08:05 | XMS_ITS | Encounter Summary ---
Author Organization [facility] Address 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 [place], [place] [address] Admit Date: 01/01/2008 KAMRAN LAU Sex: F Admit Prov: MAGED ARDON Date: 1945 Primary Care Prov: CMRN: [id number] [id number] [facility] Ordering Prov: MAGED ARDON Harinder Accession Number: [id number] Interpretation BILATERAL SCREENING DIGITAL MAMMOGRAMS WITH COMPUTER [...] AMK Procedure Note Kristy Leon - 01/02/2008 [address] [place], [place] [address] Admit Date: 01/01/2008 KAMRAN LAU Sex: F Admit Prov: MAGED ARDON Date: 1945 [facility] Prov: CMRN: [id number] [facility] [id number] IMAGING SERVICES Ordering Prov: MAGED ARDON Harinder Interpretation BILATERAL SCREENING DIGITAL MAMMOGRAMS WITH COMPUTER [...] mammogram documented in this encounter Care Teams Chief Substation Operator Relationship Specialty Start Date End Date Jung Regalado MD [address] [place] [address] PCP - General 01/20/09 documented as of this encounter
--- OUTSIDE RECORDS SUMMARY | 2025-03-01 08:05 | XMS_ITS | Encounter Summary ---
Author Organization [facility] Address [address] [place] [address] Care Team Providers Care Public Relations Analyst Name Role Phone Jung Regalado MD Primary Care Provider + [phone] Encounter Details Date Type Department Care Team (Latest Contact Info) Description 09/23/2003 Outpatient Historical HIS [facility] MICHELINE Gonzalez, Maged Pizano MD NO ADDRESS ON FILE SCREENING MAMM-MAILG NEOPL-OTHER (Primary Dx) Social History Tobacco Use Types Packs/Day Years Used Date Smoking Tobacco: Never Assessed Comments Unknown Sex and Gender Information Value Date Recorded Sex Assigned at Not on file Legal Sex Female 4:20 AM SEAM FELLER Gender Identity Not on file Sexual Orientation Not on file documented as of this encounter Plan of Treatment Not on file documented as of this encounter Visit Diagnoses Diagnosis Other screening mammogram- Primary documented in this encounter Care Teams Public Relations Analyst Relationship Specialty Start Date End Date Jung Regalado MD [address] [place] [address] PCP - General 01/20/09 documented as of this encounter
--- OUTSIDE RECORDS SUMMARY | 2025-03-01 08:05 | XMS_ITS | Encounter Summary ---
Author Organization [facility] Address [address] [place] [address] Care Team Providers Care Junior High Math Teacher Name Role Phone Jung Regalado MD Primary Care Provider + [phone] Encounter Details Date Type Department Care Team (Latest Contact Info) Description 05/29/1999 Outpatient Historical HIS [facility] MICHELINE Gonzalez, Maged Pizano MD NO ADDRESS ON FILE Nonspecific abnormal findings on radiological or other examinations of the breast (Primary Dx) Social History Tobacco Use Types Packs/Day Years Used Date Smoking Tobacco: Never Assessed Comments Unknown Sex and Gender Information Value Date Recorded Sex Assigned at Not on file 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
--- OUTSIDE RECORDS SUMMARY | 2025-03-01 08:05 | XMS_ITS | Encounter Summary ---
Author Organization [facility] Address 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
--- OUTSIDE RECORDS SUMMARY | 2025-03-01 08:05 | XMS_ITS | Clinical Summary ---
Author Organization [facility] Address [address] [place] [address] Phone Care Team Providers Care Airplane Technician Name Role Phone Jung Regalado MD Primary Care Provider + [phone] Allergies No known active allergies Medications acyclovir [...] on file Legal Sex Female 4:20 AM AIRPORT BAGGAGE SCREENER Gender Identity Not on file Sexual Orientation [...] (#1) 2024 11/13/2023, 2019 OSTEOPOROSIS SCREENING 07/18/2028 4, 07/15/2022, 07/15/2022, Additional history exists Procedures [...] Relevant to Health Maintenance Insurance Care Teams Airplane Technician Relationship Specialty Start Date End Date Jung Regalado MD [address] [place] [address] PCP - General 01/20/09
--- OUTSIDE RECORDS SUMMARY | 2025-03-01 08:05 | XMS_ITS | Encounter Summary ---
Author Organization [facility] Address [address] [place] [address] Care Team Providers Care Bomb Squad Commander Name Role Phone Jung Regalado MD Primary Care Provider + [phone] Encounter Details Date Type Department Care Team (Latest Contact Info) Description 09/23/2005 Outpatient Historical HIS [facility] MICHELINE Gonzalez, Maged Pizano MD NO ADDRESS ON FILE Other Screening Mammogram (Primary Dx) Social History Tobacco Use Types Packs/Day Years Used Date Smoking Tobacco: Never Assessed Comments Unknown Sex and Gender Information Value Date Recorded Sex Assigned at Not on file Legal Sex Female 4: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
--- OUTSIDE RECORDS SUMMARY | 2025-03-01 08:05 | XMS_ITS | Encounter Summary ---
Author Organization [facility] Address [address] [facility] [place] [address] Care Team Providers Care Phone Specialist Name Role Phone Jung Regalado MD Unavailable [phone] Jung Regalado MD Primary Care Provider + [phone] Zhanna Cordero MD Primary Care Provider [phone] Encounter Details Date Type Department Care Team (Late st Contact Info) Description 04/26/2018 Lab Requisition [facility] Care DermPath Lab [address] [facility], [place] [address] Abiola Stoddard MD [address] [facility] 3 [place] [address] Social History Tobacco Use Types Packs/Day Years Used Date Smoking Tobacco: Never Smokeless Tobacco: Never Alcohol Use Standard Drinks/Week Comments Yes 0 (1 standard drink = 0.6 oz pur e alcohol) Comments No Sex and Gender Information Value Date Recorded Sex Assigned at Not on file Legal Sex Female 6:18 AM FURNACE MECHANIC HELPER Gender Identity Not on file Sexual Orientation Not on file documented as of this encounter Plan of Treatment Not on file documented as of this encounter Procedures Procedure Name Priority Date/Time Associated Diagnosis Comments DERMATOPATH TECHNICAL REPORT Routine 04/25/2018 12:00 AM FURNACE MECHANIC HELPER documented in this encounter Results * DERMATOPATH TECHNICAL REPORT (04/25/2018 12:00 AM FURNACE MECHANIC HELPER) Case Report Dermatopathology Report Case: [id number] Authorizing Provider: Abiola Stoddard MD Collected: 04/25/2018 12:00 AM Pathologist: Freida Diehl MD Received: 04/26/2018 10:46 AM Specimen: Skin, right post thigh 12:27 PM [facility] DERMATOPATHOLOGY LABORATORY Addendum 1 At the request of the diagnosing physician, the technical component for Fleming-1/Melan A was performed by [facility] Dermatopathology Laboratory. 12:27 PM [facility] DERMATOPATHOLOGY LABORATORY Addendum electronically signed by Freida Diehl MD on 04/28/2018 at 1227 FURNACE MECHANIC HELPER Clinical History Nevus, irr color, irr border. 12:27 PM [facility] DERMATOPATHOLOGY LABORATORY Gross Description Specimen A: Received is one formalin filled container labeled with the patient's name and designated right post thigh. The specimen consists of a shave measuring 08e2o2wz. Jar 0. [facility] Dermatopathology Laboratory performed the technical component [...] characteristic determined by the Dermatopathology Laboratory at [facility], directed by Dr. Nica Diaz. These tests need not be, and therefore are not, approved by the [place] Food and Drug Administration. The tests are used for clinical purposes. 12:27 PM [facility] DERMATOPATHOLOGY LABORATORY at 1218 FURNACE MECHANIC HELPER Pathology/Cytolog y TISSUE SPECIMEN FROM SKIN / Unknown 04/25/2018 04/26/2018 10:46 AM FURNACE MECHANIC HELPER Abiola Stoddard MD LAB - PATHOLOGY/CYTOLOGY OR DERABLES Edited Result - Final DERMATOPATHOLOGY LABORATORY [facility] - Department of Dermatology [address] [place] [address], 5th Floor Lab [address] [phone] documented in this encounter Visit Diagnoses Not on filedocumented in this encounter Care Teams Phone Specialist Relationship Specialty Start Date End Date Jung Regalado MD [address] [place] [address] PCP - General 07/12/17 11/30/21 Zhanna Cordero MD [address] [place] [address] PCP - General 12/01/21 Jung Regalado MD [address] [place] [address] Family Medicine 03/16/10 documented as of this encounter
--- OUTSIDE RECORDS SUMMARY | 2025-03-01 08:05 | XMS_ITS | Encounter Summary ---
Author Organization [facility] Address [address] [facility] [place] [place] [address] Care Team Providers Care Pockets And Pieces Necktie Operator Name Role Phone Jung Regalado MD Unavailable [phone] Zhanna Cordero MD Primary Care Provider [phone] Encounter Details Date Type Department Care Team (Late st Contact Info) Description 10/31/2024 Telephone [facility] - Neurology [address] [place] [address], [place] [address] Steven Vaughan MD [address] [place] [address] [place] [address] Social History Tobacco Use Types [...] and heating? Not hard at all 09/16/2023 [facility] - Occupational Stress [...] place to sleep or slept in a group home (including now)? No 09/16/2023 Comments No Sex and Gender Information Value Date Recorded Sex Assigned at Not on file Legal Sex Female 6:18 AM SUPERVISOR PLASTERING Gender Identity Not on file Sexual Orientation [...] encounter Miscellaneous Notes * Telephone Encounter - EdnaSheree Shaffer - 10/31/2024 1:30 PM CDT Current Provider: [...] the pt back. Patient Call Back Number: [phone] documented in this encounter Plan of Treatment Not on file documented as of this encounter Visit Diagnoses Not on filedocumented in this encounter Care Teams Pockets And Pieces Necktie Operator Relationship Specialty Start Date End Date Zhanna Cordero MD [address] [place] [address] PCP - General 12/01/21 Jung Regalado MD [address] [place] [address] Family Medicine 03/16/10 documented as of this encounter
--- OUTSIDE RECORDS SUMMARY | 2025-03-01 08:05 | XMS_ITS | Encounter Summary ---
Author Organization [facility] Address [address] [place] [address] Care Team Providers Care Wire Drawing Die Maker Name Role Phone Jung Regalado MD Unavailable [phone] Zhanna Cordero MD Primary Care Provider [phone] Encounter Details Date Type Department Care Team (Late st Contact Info) Description 07/30/2024 Lab Requisition [facility] - DermPath Lab [address] [facility], [place] [address] Hilaria Kaur DO [address] [facility] 3 [place] [address] Social History Tobacco Use Types Packs/Day Years [...] and heating? Not hard at all 09/16/2023 [place] [facility] Occupat ional Health - Occupational Stress [...] place to sleep or slept in a custodial (including now)? No 09/16/2023 Comments No Sex and Gender Information Value Date Recorded Sex Assigned at Not on file Legal Sex Female 6:18 AM LEAD PROGRAMMER ANALYST Gender Identity Not on file Sexual Orientation [...] AM CDT) Case Report Dermatopathology Report Case: [id number] Authorizing Provider: Hilaria Kaur DO Collected: 07/30/2024 10:19 AM Ordering Location: [facility] - Received: 07/30/2024 04:45 PM [...] purposes. Billing Codes Specimen Charges Stain Charges 47928 1 5 4:34 PM CDT DERMATOPATHOLOGY LABORATORY Embedded Images 5 4:34 PM CDT DERMATOPATHOLOGY LABORATORY Pathology/Cytolo gy TISSUE SPECIMEN FROM SKIN / Unknown 07/30/2024 10:19 AM CDT 07/30/2024 4:45 PM CDT us Hilaria Kaur DO LAB - PATHOLOGY/CYTOLOGY ORDERABLES Final Result Performing Organization Address City/State/[facility] Co de Phone Number DERMATOPATHOLOGY LABORATORY [facility] - Department of Dermatology [facility] Medicine [address] [place] [address], [address]rd Floor [address] [phone] documented in this encounter Visit Diagnoses Not on filedocumented in this encounter Care Teams Wire Drawing Die Maker Relationship Specialty Start Date End Date Zhanna Cordero MD [address] [place] [address] PCP - General 12/01/21 Jung Regalado MD [address] [place] [address] Family Medicine 03/16/10 documented as of this encounter
--- OUTSIDE RECORDS SUMMARY | 2025-03-01 08:05 | XMS_ITS | Encounter Summary ---
Author Organization [facility] Health Address [address] [facility] [place] [address] Care Team Providers Care Washer Meat Name Role Phone Jung Regalado MD Unavailable [phone] Zhanna Cordero MD Primary Care Provider [phone] Encounter Details Date Type Department Care Team (Late st Contact Info) Description 02/22/2024 Lab Requisition [facility] - DermPath Lab [address] [facility], [place] [address] Hilaria Kaur DO [address] [facility] 3 [place] [address] Social History Tobacco Use Types Packs/Day Years [...] and heating? Not hard at all 09/16/2023 [place] [facility] - Occupational Stress [...] on file Legal Sex Female 6:18 AM CATHOLIC PRIEST Gender Identity Not on file Sexual Orientation [...] Diagnosis Comments DERMATOPATHOLOGY Routine 02/22/2024 8:43 AM CATHOLIC PRIEST documented in this encounter Results * DERMATOPATHOLOGY (02/22/2024 8:43 AM CATHOLIC PRIEST) Case Report Dermatopathology Report Case: [id number] Authorizing Provider: Hilaria Kaur DO Collected: 02/22/2024 08:43 AM Ordering Location: [facility] - Received: 02/22/2024 03:46 PM DermPath Lab Pathologist: Antonieta Zazueta MD Specimen: Skin, right upper arm 12:06 PM [facility] [[email or web address]] DERMATOPATHOLOGY LABORATORY Final Diagnosis Specimen A. SKIN, right upper arm: DERMAL SCAR RESIDUAL SQUAMOUS CELL CARCINOMA NOT IDENTIFIED (L90.5) 12:06 PM [facility] [[email or web address]] DERMATOPATHOLOGY LABORATORY at [address] CATHOLIC PRIEST Clinical History Bx proven, R/O SCC 12:06 PM [facility] [[email or web address]] DERMATOPATHOLOGY LABORATORY Gross Description Specimen A: Received is one formalin filled container labeled with the patient's name and designated right upper arm. The specimen consists of a non-oriented ellipse of skin measuring 66l97o4 mm. The epidermal surface is unremarkable. The margin is inked green. The 12 o'clock and 6 o'clock tips are submitted in cassette 1. The remainder of the ellipse is serially sectioned and submitted in cassette 2. Jar 0. 4 12:06 PM [facility] [[email or web address]] DERMATOPATHOLOGY LABORATORY Microscopic Description Specimen A. SKIN, right upper arm: There are fibroblasts and collagen bundles oriented parallel to the skin surface. There are elongated blood vessels, some of which are oriented perpendicular to the skin surface. No residual squamous cell carcinoma is identified. 12:06 PM [facility] [[email or web address]] DERMATOPATHOLOGY LABORATORY Disclaimer An external and internal [...] purposes. Billing Codes Specimen Charges Stain Charges 48582 1 4 12:06 PM CATHOLIC PRIEST DERMATOPATHOLOGY LABORATORY Embedded Images 4 12:06 PM [facility] [[email or web address]] DERMATOPATHOLOGY LABORATORY Pathology/Cytolo gy TISSUE SPECIMEN FROM SKIN / Unknown 02/22/2024 8:43 AM CATHOLIC PRIEST 02/22/2024 3:46 PM CATHOLIC PRIEST us Hilaria Kaur DO LAB - PATHOLOGY/CYTOLOGY ORDERABLES Final Result DERMATOPATHOLOGY LABORATORY [facility] - Department of Dermatology [facility] Medicine [address] [place] [address], [address]rd Floor [address] [phone] documented in this encounter Visit Diagnoses Not on filedocumented in this encounter Care Teams Washer Meat Relationship Specialty Start Date End Date Zhanna Cordero MD [address] [place] [address] PCP - General 12/01/21 Jung Regalado MD [address] [place] [address] Family Medicine 03/16/10 documented as of this encounter
--- OUTSIDE RECORDS SUMMARY | 2025-03-01 08:05 | XMS_ITS | Encounter Summary ---
Author Organization [facility] Address [address] [place] [address] Care Team Providers Care Rejogger Name Role Phone Jung Regalado MD Primary Care Provider + [phone] Encounter Details Date Type Department Care Team (Latest Contact Info) Description 09/23/2004 Outpatient Historical HIS [facility] MICHELINE Gonzalez, Maged Pizano MD NO ADDRESS ON FILE SCREENING MAMM-MAILG NEOPL-OTHER (Primary Dx) Social History Tobacco Use Types Packs/Day Years Used Date Smoking Tobacco: Never Assessed Comments Unknown Sex and Gender Information Value Date Recorded Sex Assigned at Not on file Legal Sex Female 4:20 AM DEPUTY CLERK Gender Identity Not on file Sexual Orientation Not on file documented as of this encounter Plan of Treatment Not on file documented as of this encounter Visit Diagnoses Diagnosis Other screening mammogram- Primary documented in this encounter Care Teams Rejogger Relationship Specialty Start Date End Date Jung Regalado MD [address] [place] [address] PCP - General 01/20/09 documented as of this encounter
--- OUTSIDE RECORDS SUMMARY | 2025-03-01 08:05 | XMS_ITS | Encounter Summary ---
Author Organization [facility] Health Address [address] [facility] [place] [address] Care Team Providers Care Neurosurgeon Name Role Phone Jung Regalado MD Unavailable [phone] Zhanna Cordero MD Primary Care Provider [phone] Encounter Details Date Type Department Care Team (Late st Contact Info) Description 02/23/2023 Lab Requisition [facility] - DermPath Lab [address] [facility] [place] [facility] [place] [address] Janis Santiago MD [address] [place] [address] Social History Tobacco Use Types [...] on file Legal Sex Female 6:18 AM MANAGER [place] Gender Identity Not on file Sexual Orientation Not on file documented as of this encounter Plan of Treatment Not on file documented as of this encounter Procedures Procedure Name Priority Date/Time Associated Diagnosis Comments DERMATOPATHOLOGY Routine 02/23/2023 1:27 PM MA[place]GER [place] documented in this encounter Results * DERMATOPATHOLOGY (02/23/2023 1:27 PM [place]) Case Report Dermatopathology Report Case: [id number] Authorizing Provider: Janis Santiago MD Collected: 02/23/2023 [...] [facility] DERMATOPATHOLOGY LABORATORY at [address] MA[place] Clinical History R/O SCC 3 4:44 PM [...] characteristic determined by the Dermatopathology Laboratory at [facility], directed by Dr. Nica Diaz. These tests need not be, and therefore are not, approved by the [place] Food and Drug Administration. The tests are used for clinical purposes. Billing Codes Specimen Charges Stain Charges 77961 1 72889 1 3 4:44 PM [place] DERMATOPATHOLOGY LABORATORY Embedded Images 3 4:44 PM [place] DERMATOPATHOLOGY LABORATORY Pathology/Cytolo gy TISSUE SPECIMEN FROM SKIN / Unknown 02/23/2023 1:27 PM MA[place]GER [place] 02/24/2023 7:38 AM MANAGER [place] Janis Santiago MD LAB - PATHOLOGY/CYTOLOGY ORDERA BLES Final Result DERMATOPATHOLOGY LABORATORY [facility] - Department of Dermatology [facility] Specialized Medicine [address] [place] [address], [address]rd Floor [address] [phone] documented in this encounter Visit Diagnoses Not on filedocumented in this encounter Care Teams Neurosurgeon Relationship Specialty Start Date End Date Zhanna Cordero MD [address] [place] [address] PCP - General 12/01/21 Jung Regalado MD [address] [place] [address] Family Medicine 03/16/10 documented as of this encounter
--- OUTSIDE RECORDS SUMMARY | 2025-03-01 08:05 | XMS_ITS | Encounter Summary ---
Author Organization [facility] Address [address] [place] [address] Care Team Providers Care Gasateria Attendant Name Role Phone Jung Regalado MD Primary Care Provider + [phone] Encounter Details Date Type Department Care Team (Latest Contact Info) Description 05/22/1998 Outpatient Historical HIS [facility] MICHELINE Gonzalez, Maged Pizano MD NO ADDRESS ON FILE Other screening mammogram (Primary Dx) Social History Tobacco Use Types Packs/Day Years Used Date Smoking Tobacco: Never Assessed Comments Unknown Sex and Gender Information Value Date Recorded Sex Assigned at Not on file Legal Sex Female 4:20 AM DOCUMENTATION CLERK Gender Identity Not on file Sexual Orientation Not on file documented as of this encounter Plan of Treatment Not on file documented as of this encounter Visit Diagnoses Diagnosis Other screening mammogram- Primary documented in this encounter Care Teams Gasateria Attendant Relationship Specialty Start Date End Date Jung Regalado MD [address] [place] [address] PCP - General 01/20/09 documented as of this encounter
--- OUTSIDE RECORDS SUMMARY | 2025-03-01 08:05 | XMS_ITS | Encounter Summary ---
Author Organization [facility] Care Team Providers Care Lieutenant Shift Supervisor Name Role Phone Jung Regalado MD Primary Care Provider [phone] Zhanna Cordero MD Primary Care Provider [phone] Encounter Details Date Type Department Care Team (Latest Contact Info) Description 02/08/2017 Orders Only [facility] ProviderConstance MD [address] [place], [place] [id number] Social History Tobacco Use Types Packs/Day Years Used Date Smoking Tobacco: Never Comments Unknown Sex and Gender Information Value Date Recorded Sex Assigned at Not on file Legal Sex Female 11:28 AM UTILITY WORKER [place] Gender Identity Female 06/30/2022 6:11 AM CDT Sexual Orientation Straight 06/30/2022 6: 11 AM CDT documented as of this encounter Plan of Treatment Not on file documented as of this encounter Procedures Procedure Name Priority Date/Time Associated Diagnosis Comments PROCEDURE - RESULT 02/10/2017 12 :00 AM UTILITY WORKER [place] PROCEDURE - RESULT 02/08/2017 12 :00 AM UTILITY WORKER [place] documented in this encounter Results * PROCEDURE - RESULT (02/10/2017 12:00 AM UTILITY WORKER [place]) Narrative 02/10/2017 12:00 AM UTILITY WORKER [place] Ordered by an unspecified provider. Historical Provider Final Res ult * PROCEDURE - RESULT (02/08/2017 12:00 AM UTILITY WORKER [place]) Narrative 02/08/2017 12:00 AM UTILITY WORKER [place] Ordered by an unspecified provider. us Historical Provider Final Res ult documented in this encounter Visit Diagnoses Not on filedocumented in this encounter Care Teams Lieutenant Shift Supervisor Relationship Specialty Start Date End Date Jung Regalado MD [address] [place] [address] PCP - General 10/05/16 05/21/20 Zhanna Cordero MD [address] [place] [address] PCP - General Family Medicine 05/22/20 documented as of this encounter
--- OUTSIDE RECORDS SUMMARY | 2025-03-01 08:05 | XMS_ITS | Encounter Summary ---
Author Organization [facility] Address [address] [facility] [place] [address] Care Team Providers Care Crude Oil Driver Name Role Phone Jung Regalado MD Unavailable [phone] Jung Regalado MD Primary Care Provider + [phone] Zhanna Cordero MD Primary Care Provider [phone] Encounter Details Date Type Department Care Team (Late st Contact Info) Description 06/07/2018 Lab Requisition [facility] Care DermPath Lab [address] [facility], [place] [address] Abiola Stoddard MD [address] [facility] 3 [place] [address] Social History Tobacco Use Types Packs/Day Years Used Date Smoking Tobacco: Never Smokeless Tobacco: Never Alcohol Use Standard Drinks/Week Comments Yes 0 (1 standard drink = 0.6 oz pur e alcohol) Comments No Sex and Gender Information Value Date Recorded Sex Assigned at Not on file Legal Sex Female 6:18 AM PRODUCT CONSULTANT Gender Identity Not on file Sexual Orientation Not on file documented as of this encounter Plan of Treatment Not on file documented as of this encounter Procedures Procedure Name Priority Date/Time Associated Diagnosis Comments DERMATOPATHOLOGY Routine 06/06/2018 12:0 0 AM CDT documented in this encounter Results * DERMATOPATHOLOGY (06/06/2018 12:00 AM CDT) Case Report Dermatopathology Report Case: [id number] Authorizing Provider: Abiola Stoddard MD Collected: 06/06/2018 [...] of a non-oriented ellipse of skin measuring 12h93e7 mm. The epidermal surface is unremarkable. The [...] characteristic determined by the Dermatopathology Laboratory at [facility], directed by Dr. Nica Diaz. These tests need not be, and therefore are not, approved by the [place] Food and Drug Administration. The tests are used for clinical purposes. Billing Codes Specimen Charges Stain Charges 10172 1 03/28/201 9 12:25 PM CDT DERMATOPATHOLOGY LABORATORY Embedded Images 9 12:25 PM CDT DERMATOPATHOLOGY LABORATORY Pathology/Cytolog y TISSUE SPECIMEN FROM SKIN / Unknown 06/06/2018 06/07/2018 7:02 AM CDT Abiola Stoddard MD LAB - PATHOLOGY/CYTOLOGY OR DERABLES Final Result DERMATOPATHOLOGY LABORATORY [facility] - Department of Dermatology [address] [place] [address], 5th Floor Lab [address] [phone] documented in this encounter Visit Diagnoses Not on filedocumented in this encounter Care Teams Crude Oil Driver Relationship Specialty Start Date End Date Jung Regalado MD [address] [place] [address] PCP - General 07/12/17 11/30/21 Zhanna Cordero MD [address] [place] [address] PCP - General 12/01/21 Jung Regalado MD [address] [place] [address] Family Medicine 03/16/10 documented as of this encounter
--- OUTSIDE RECORDS SUMMARY | 2025-03-01 08:05 | XMS_ITS | Encounter Summary ---
Author Organization [facility] Healthcare Address [address] [place] [address] Care Team Providers Care Quality Nurse Name Role Phone Jung Regalado MD Primary Care Provider [phone] Zhanna Cordero MD Primary Care Provider [phone] Encounter Details Date Type Department Care Team (Late st Contact Info) Description 09/24/2019 Telephone [facility] Imaging [address] [place] [address] [address]ela Beltran [address] Social History Tobacco Use Types Packs/Day Years Used Date Smoking Tobacco: Never Smokeless Tobacco: Never Alcohol Use Standard Drinks/Week Comments Yes 0 (1 standard drink = 0.6 oz pur e alcohol) socially Comments Unknown Sex and Gender Information Value Date Recorded Sex Assigned at Not on file Legal Sex Female 11:28 AM LEGAL DOCUMENT ASSISTANT Gender Identity Female 06/30/2022 6:11 AM CDT Sexual Orientation Straight 06/30/2022 6: 11 AM CDT Occupation Industry Job Start Date Job End Date retired Not on file Not on file Not on file documented as of this encounter Plan of Treatment Not on file documented as of this encounter Visit Diagnoses Not on filedocumented in this encounter Care Teams Quality Nurse Relationship Specialty Start Date End Date Jung Regalado MD [address] [place] [address] PCP - General 10/05/16 05/21/20 Zhanna Cordero MD [address] [place] [address] PCP - General Family Medicine 05/22/20 documented as of this encounter
--- OUTSIDE RECORDS SUMMARY | 2025-03-01 08:05 | XMS_ITS | Clinical Summary ---
Author Organization [facility] Address [address] [place] [address] Care Team Providers Care Management Lead Name Role Phone Zhanna Cordero MD Primary Care Provider [phone] Allergies No known active allergies Medications acyclovir [...] (10/09/2019): Added automatically from request for surgery [id number] Chronic pain of left knee 11/17/2018 Chronic [...] 03/16/2010 Surgical History Surgery Date Site/Laterality Comments [place] TOTAL ABDOMINAL HYSTERECT W/WO RMVL TUBE OVARY Hysterectomy - (Added by TW Conv) [place] ARTHROPLASTY GLENOHUMERAL JOINT TOTAL SHOULDER Left Shoulder [...] on file Legal Sex Female 11:28 AM LINING MACHINE OPERATOR Gender Identity Female 06/30/2022 6:11 AM [...] 36.6 C (97.8 F) 01/22/2020 11:10 AM LINING MACHINE OPERATOR Respiratory Rate 20 01/31/2020 10:46 AM LINING MACHINE OPERATOR Oxygen Saturation 97% 11/08/2023 10:01 AM [...] history exists Medical Devices Implanted Type Area Rn Cardiac Cath Device Identifier Shelf Expiration Date Model / [...] Most Recently Relevant to Health Maintenance Insurance [facility] MEDICARE ADVANTAGE [employer] MEDICARE ADVANTAGE [facility] MEDICARE ADVANTAGE Advance Directives For more information, please contact: [phone] Documents on File Type Date Recorded Patient Commercial Mortgage Broker Expl anation ADVANCE DIRECTIVE 12/21/2018 12:00 AM [facility] OF MIXING PLANT OPERATOR FINANCIAL/MEDICAL Care Teams Management Lead Relationship Specialty Start Date End Date Zhanna Cordero MD PCP - General Family Medicine 05/22/20
--- OUTSIDE RECORDS SUMMARY | 2025-03-01 08:05 | XMS_ITS | Encounter Summary ---
Author Organization [facility] Address [address] [place] [address] Care Team Providers Care Anatomic Pathologist Name Role Phone Jung Regalado MD Unavailable [phone] Jung Regalado MD Primary Care Provider + [phone] Zhanna Cordero MD Primary Care Provider [phone] Encounter Details Date Type Department Care Team (Late st Contact Info) Description 04/26/2018 Lab Requisition [facility] Care DermPath Lab [address] [facility], [place] [address] Abiola Stoddard MD [address] [facility] 3 [place] [address] Social History Tobacco Use Types Packs/Day Years Used Date Smoking Tobacco: Never Smokeless Tobacco: Never Alcohol Use Standard Drinks/Week Comments Yes 0 (1 standard drink = 0.6 oz pur e alcohol) Comments No Sex and Gender Information Value Date Recorded Sex Assigned at Not on file Legal Sex Female 6:18 AM TRAVEL PROFESSIONAL Gender Identity Not on file Sexual Orientation Not on file documented as of this encounter Plan of Treatment Not on file documented as of this encounter Visit Diagnoses Not on filedocumented in this encounter Care Teams Anatomic Pathologist Relationship Specialty Start Date End Date Jung Regalado MD [address] [place] [address] PCP - General 07/12/17 11/30/21 Zhanna Cordero MD [address] [place] [address] PCP - General 12/01/21 Jung Regalado MD [address] [place] [address] Family Medicine 03/16/10 documented as of this encounter
--- OUTSIDE RECORDS SUMMARY | 2025-03-01 08:05 | XMS_ITS | Encounter Summary ---
Author Organization [facility] Address [address] [place] [address] Care Team Providers Care Shield Cleaner Name Role Phone Jung Regalado MD Primary Care Provider + [phone] Encounter Details Date Type Department Care Team (Latest Contact Info) Description 06/22/2000 Outpatient Historical HIS [facility] MICHELINE Gonzaelz, Maged Pizano MD NO ADDRESS ON FILE Other screening mammogram (Primary Dx) Social History Tobacco Use Types Packs/Day Years Used Date Smoking Tobacco: Never Assessed Comments Unknown Sex and Gender Information Value Date Recorded Sex Assigned at Not on file Legal Sex Female 4:20 AM PLATE COLORER Gender Identity Not on file Sexual Orientation Not on file documented as of this encounter Plan of Treatment Not on file documented as of this encounter Visit Diagnoses Diagnosis Other screening mammogram- Primary documented in this encounter Care Teams Shield Cleaner Relationship Specialty Start Date End Date Jung Regalado MD [address] [place] [address] PCP - General 01/20/09 documented as of this encounter
--- OUTSIDE RECORDS SUMMARY | 2025-03-01 08:05 | XMS_ITS | Encounter Summary ---
Author Organization [facility] Address [address] [place] [address] Care Team Providers Care Sole Seamer Name Role Phone Jung Regalado MD Primary Care Provider + [phone] Encounter Details Date Type Department Care Team (Latest Contact Info) Description 09/03/2002 Outpatient Historical HIS [facility] MICHELINE Gonzalez, Maged Pizano MD NO ADDRESS ON FILE SCREENING MAMM-MALIG NEOPL-HI RISK (Primary Dx) Social History Tobacco Use Types Packs/Day Years Used Date Smoking Tobacco: Never Assessed Comments Unknown Sex and Gender Information Value Date Recorded Sex Assigned at Not on file Legal Sex Female 4:20 AM RNP Gender Identity Not on file Sexual Orientation Not on file documented as of this encounter Plan of Treatment Not on file documented as of this encounter Visit Diagnoses Diagnosis Screening mammogram for high-risk patient- Primary documented in this encounter Care Teams Sole Seamer Relationship Specialty Start Date End Date Jung Regalado MD [address] [place] [address] PCP - General 01/20/09 documented as of this encounter
--- OUTSIDE RECORDS SUMMARY | 2025-03-01 08:05 | XMS_ITS | Clinical Summary ---
Author Organization [facility] Care Team Providers Care Ob Tech Name Role Phone Unavailable Primary Care Provider Unavailabl e Social History Tobacco Use Types Packs/Day Years Used Date Smoking Tobacco: Never Assessed Comments Unknown Sex and Gender Information Value Date Recorded Sex Assigned at Not on file Legal Sex Female 2:08 PM LIGHT TECHNICIAN Gender Identity Not on file Sexual [...]
--- OUTSIDE RECORDS SUMMARY | 2025-03-01 08:05 | XMS_ITS | Encounter Summary ---
Author Organization [facility] Address [address] [place] [address] Care Team Providers Care Bus System Operator Name Role Phone Jugn Regalado MD Unavailable [phone] Zhanna Cordero MD Primary Care Provider [phone] Encounter Details Date Type Department Care Team (Late st Contact Info) Description 02/07/2023 Lab Requisition [facility] - DermPath Lab [address] [facility] [place] [address] Hilaria Kaur DO [address] [facility] 3 [place] [address] Social History Tobacco Use Types Packs/Day Years [...] on file Legal Sex Female 6:18 AM DISABILITY CASE MANAGER Gender Identity Not on file Sexual Orientation Not on file documented as of this encounter Plan of Treatment Not on file documented as of this encounter Procedures Procedure Name Priority Date/Time Associated Diagnosis Comments DERMATOPATHOLOGY Routine 02/07/2023 9:31 AM DISABILITY CASE MANAGER documented in this encounter Results * DERMATOPATHOLOGY (02/07/2023 9:31 AM DISABILITY CASE MANAGER) Case Report Dermatopathology Report Case: [id number] Authorizing Provider: Hilaria Kaur DO Collected: 02/07/2023 09:31 AM Ordering Location: [facility] DermPath Lab Received: 02/08/2023 01:06 PM Pathologist: Hailee Su MD Specimens: A) - Skin, left hand B) - Skin, left lat LE C) - Skin, right wrist 10:50 AM [facility] DERMATOPATHOLOGY LABORATORY Final Diagnosis Specimen A. SKIN, left hand: SQUAMOUS CELL CARCINOMA, WELL DIFFERENTIATED (C44.629) Specimen B. SKIN, left lat LE: SQUAMOUS PROLIFERATION (D48.5) (see microscopic description and comment) Specimen C. SKIN, right wrist: ACTINIC KERATOSIS, LICHENOID (L57.0) 10:50 AM [facility] DERMATOPATHOLOGY LABORATORY at 1050 DISABILITY CASE MANAGER Clinical History A-C: R/O NMSC 10:50 AM [facility] DERMATOPATHOLOGY LABORATORY Gross Description Specimen A: [...] measuring 7x7x1 mm. Jar 0. 10:50 AM [facility] DERMATOPATHOLOGY LABORATORY Microscopic Description Specimen A. [...] some basal vacuolar alteration. 3 10:50 AM [facility] DERMATOPATHOLOGY LABORATORY Disclaimer An external and internal positive and negative controls are appropriate for the histochemical, immunohistochemical and immunofluorescence stain(s) in this case (if any), except where stated explicitly. The performance characteristics of the stain(s) cited in this report were developed and its performance characteristic determined by the Dermatopathology Laboratory at [facility], directed by Dr. Nica Diaz. These tests need not be, and therefore are not, approved by the [place] Food and Drug Administration. The tests are used for clinical purposes. Billing Codes Specimen Charges Stain Charges 22742 74654 81924 1 1 1 3 10:50 AM [facility] DERMATOPATHOLOGY LABORATORY Embedded Images 3 10:50 AM [facility] DERMATOPATHOLOGY LABORATORY Pathology/Cytology TISSUE SPECIMEN FROM SKIN / Unknown 02/07/2023 9:31 AM DISABILITY CASE MANAGER 02/08/2023 1:06 PM DISABILITY CASE MANAGER Miscellaneous samples (specimen) TISSUE SPECIMEN FROM SKIN / Unknown 02/07/2023 9:31 AM DISABILITY CASE MANAGER 02/08/2023 1:06 PM DISABILITY CASE MANAGER Miscellaneous samples (specimen) TISSUE SPECIMEN FROM SKIN / Unknown 02/07/2023 9:31 AM DISABILITY CASE MANAGER 02/08/2023 1:06 PM DISABILITY CASE MANAGER us Hilaria Kaur DO LAB - PATHOLOGY/CYTOLOGY ORDERABLES Final Result DERMATOPATHOLOGY LABORATORY [facility] - Department of Dermatology [facility] Medicine [address] [place] [address], [address] [phone] documented in this encounter Visit Diagnoses Not on filedocumented in this encounter Care Teams Bus System Operator Relationship Specialty Start Date End Date Zhanna Cordero MD [address] [place] [address] PCP - General 12/01/21 Jung Regalado MD [address] [place] [address] Family Medicine 03/16/10 documented as of this encounter
--- OUTSIDE RECORDS SUMMARY | 2025-03-01 08:05 | XMS_ITS | Encounter Summary ---
Author Organization [facility] Address [address] [place] [address] Care Team Providers Care Executive Pastry Chef Name Role Phone Jung Regalado MD Primary Care Provider + [phone] Encounter Details Date Type Department Care Team (Latest Contact Info) Description 07/24/2004 Inpatient Historical [facility] Maged Gonzalez MD NO ADDRESS ON FILE BENIGN NEOPLASM OVARY (Primary Dx) Social History Tobacco Use Types Packs/Day Years Used Date Smoking Tobacco: Never Assessed Comments Unknown Sex and Gender Information Value Date Recorded Sex Assigned at Not on file Legal Sex Female 4:20 AM PRESSURE CONTROL SUPERVISOR Gender Identity Not on file Sexual [...] URINE ORDERABLES Final Result Performing Organization Address [facility] Phone Number INTERFACE SYSTEM Refer to clinic/hospital department * CBC WITH DIFFERENTIAL (07/26/2004 12:00 PM CDT) Pathologist [facility] NEUTROPHILS 68 45 - 70 % INTERFAC [...] ORDERABLES Final R esult Performing Organization Address [facility] de Phone Number INTERFACE SYSTEM Refer to [...] Gonzalez MD HEMATOLOGY ORDERABLES Final R esult INTERFACE SYSTEM Refer to clinic/hospital department * HEMOGLOBIN AND HEMATOCRIT (07/20/2004 9:52 AM CDT) HEMOGLOBIN 14.0 11.8 - 14.8 g/dL INTERFACE SYSTEM HEMATOCRIT 40.4 35.5 - 44.0 % INTERFACE SYSTEM 07/20/2004 9:52 AM CDT Maged Gonzalez MD HEMATOLOGY ORDERABLES Final R esult INTERFACE SYSTEM Refer to clinic/hospital department * [...] Primary documented in this encounter Care Teams Executive Pastry Chef Relationship Specialty Start Date End Date Jung Regalado MD [address] [place] [address] PCP - General 01/20/09 documented as of this encounter
--- OUTSIDE RECORDS SUMMARY | 2025-03-01 08:05 | XMS_ITS | Encounter Summary ---
Author Organization [facility] Address [address] [place] [address] Care Team Providers Care Environmental Safety Specialist Name Role Phone Jung Regalado MD Primary Care Provider + [phone] Encounter Details Date Type Department Care Team (Latest Contact Info) Description 11/30/1999 Outpatient Historical [facility] Jung Ramírez MD [address] [address] Other specified disorder of breast (Primary Dx) Social History Tobacco Use Types Packs/Day Years Used Date Smoking Tobacco: Never Assessed Comments Unknown Sex and Gender Information Value Date Recorded Sex Assigned at Not on file Legal Sex Female 4:20 AM VINYL DIPPER Gender Identity Not on file Sexual Orientation Not on file documented as of this encounter Plan of Treatment Not on file documented as of this encounter Visit Diagnoses Diagnosis Other specified disorder of breast- Primary documented in this encounter Care Teams Environmental Safety Specialist Relationship Specialty Start Date End Date Jung Regalado MD [address] [place] [address] PCP - General 01/20/09 documented as of this encounter
--- OUTSIDE RECORDS SUMMARY | 2025-03-01 08:05 | XMS_ITS | Encounter Summary ---
Author Organization [facility] Address 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
--- OUTSIDE RECORDS SUMMARY | 2025-03-01 08:05 | XMS_ITS | Clinical Summary ---
Author Organization [facility] Address [address] [place] [address] Care Team Providers Care Neon Electrician Name Role Phone Jung Regalado MD Unavailable [phone] Zhanna Cordero MD Primary Care Provider [phone] Source Comments [facility],non-owned Affiliates and Associated Physician Practices is amultiple site organization consisting of ambulatory clinics and hospital sitesin [place], [place], [place] and [place]. This disclosure is being madepursuant to the Care Everywhere program and may not contain all information available regarding this patient. Last updated 17.[facility] Allergies Active Allergy Reactions Criticality Noted Date Comments Prednisone Anaphylaxis High 02/14/2025 Medications * Be aware that medications may not be up to date on this document. Alwaysverify current medications with the patient. dilTIAZem coated beads 24hr (Cardizem CD) 240 MG capsuleIndicat ions:Atrial Fibrillation,H ypertension Take 1 (one) capsule by mouth once daily Reasons: Atrial Fibrillation, High Blood Pressure Disorder Active Acetaminophen (TYLENOL PO) Active melatonin 3 MG tabletIndicati ons:Insomnia Take 2 (two) tablets by mouth at bedtime Reasons: Trouble Sleeping 4 Active apixaban (Eliquis) 5 MG tablet Take 1 (one) tablet by mouth 2 times daily 60 tablet 3 4 Active Ergocalciferol (VITAMIN D2 PO) Take 1.25 mcg by mouth every 7 days (once a week) Active potassium chloride ER (Klor-Con M) 10 MEQ tablet Take 1 (one) tablet by mouth Active rosuvastatin (Crestor) 5 MG tablet Take 1 (one) tablet by mouth once daily Active oxyBUTYnin CR 24hr (Ditropan-XL) 10 MG tablet Take 1 (one) tablet by mouth once daily Active cetirizine (ZyrTEC) 10 MG tablet Take by mouth once daily Active albuterol HFA (Proventil; Ventolin; Proair) 108 (90 Base) MCG/ACT inhaler Inhale 2 (two) puffs by mouth every 6 hours as needed Active valACYclovir (Valtrex) 1 GM tablet Take 1 (one) tablet by mouth as needed Active cyclobenzaprin e (Flexeril) 10 MG tablet Take 1 (one) tablet by mouth 3 times daily as needed for muscle spasms Active polyethylene glycol 3350 (Miralax) 17 g packet Take 17 (seventeen) g by mouth once daily as needed for Constipation 4 025 Discontin ued(List Clean-Up) triamterene-hy droCHLOROthiaz georges (Dyazide) 37.5-25 MG capsule Take 1 (one) capsule by mouth once daily 025 Discontin ued(List Clean-Up) Active Problems Problem Noted Date Diagnosed Date 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 02/28/2025 Acute respiratory failure with hypoxia Class 1 [...] Presence of right artificial knee joint 02/09/20 Presence of left artificial shoulder joint 01/12 Cataract extraction status, left eye 01/12/2022 Abnormal mammography 12/01/2021 Primary osteoarthritis of left knee 12/01/2021 Primary osteoarthritis of right knee 12/01/2021 Chronic anticoagulation 10/17/2020 History of 2019 novel coronavirus disease (COVID -19) 05/22/2020 Moderate right ventricular systolic dysfunction 01/28/2020 Paroxysmal atrial fibrillation 01/28/2020 Left carpal tunnel syndrome 10/09/2019 Overview (01/30/2020): Added automatically from request for surgery [id number] 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 Depressive disorder 01/30/2014 Diverticulitis of colon 01/30/2014 Mid back pain 07/30/2013 Herniation of intervertebral disc of cervical re gion 06/10/2013 Arthritis 06/05/2013 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 Arthralgia of shoulder 09/02/2011 Primary hypertension 03/16/2010 Degeneration of cervical intervertebral disc 05/2010 Cervical spondylosis without myelopathy 03/16/19 11 Encounters Date Type Department Care Team Description 02/28/2025 12:00 PM FISHERIES DIVER Office Visit [facility] - Neurology [address] [facility] [place] [address] Steven Vaughan MD Aneurysm of cavernous portion of right internal carotid artery (HCC) (Primary Dx) 02/28/2025 Travel 02/14/2025 Lab Requisition [facility] - DermPath Lab [address] [facility] [place] [address] Hilaria Kaur, Neoplasm of uncertain behavior of skin from Last 3 Months Family History Medical [...] and heating? Not hard at all 09/16/2023 [facility] - Occupational Stress [...] on file Legal Sex Female 6:18 AM FISHERIES DIVER Gender Identity Not on file Sexual Orientation Not on file Last Filed Vital Signs Vital Sign Reading Time Taken Comments Blood Pressure 116/70 02/28/2025 11:34 AM FISHERIES DIVER Pulse 109 02/28/2025 11:34 AM FISHERIES DIVER Temperature 37 C (98.6 F) 09/23/2023 12:33 PM CDT Respiratory Rate 14 02/28/2025 11:34 AM FISHERIES DIVER Oxygen Saturation 94% 09/23/2023 3:57 AM CDT Inhaled Oxygen Concentration - - Weight 80.7 kg (178 lb) 02/28/2025 11:34 AM FISHERIES DIVER Height 157.5 cm (5' 2) 02/28/2025 11:34 AM FISHERIES DIVER Body Mass Index 32.56 02/28/2025 11:34 AM FISHERIES DIVER Plan of Treatment Health Maintenance Due Date Last Done Comments HEPATITIS C SCREENING 12/04/1965 DTAP/TDAP/TD VACCINES (1 - Tdap) 12/08/1966 PNEUMOCOCCAL VACCINE 50+ (1 of 1 - PCV) 12/08/1997 ZOSTER VACCINE (1 of 2) 12/08/1997 Respiratory Syncytial Virus (RSV) Vaccine Pt: or over 60 yrs (1 - 1-dose 75+ series) 12/08/2022 DEPRESSION SCREENING 03/14/2024 MEDICARE AWV CALENDAR YEAR 2024 COVID-19 VACCINE (2024- season) 2024 03/19/2021, 03/18/2021, 05/21/2020, Additional history exists SCREENING FOR DIABETES 09/22/2026 , 09/23/2023, 09/23/2023, Additional history exists BONE DENSITY TESTING Completed 07/19/2023, 07/15/2022, 01/29/2020 INFLUENZA VACCINE Completed 01/30/2025, , 11/13/2023, Additional history exists HEPATITIS B VACCINE Aged Out No longe [...] this topic Medical Devices Implanted Type Area Rerecording Mixer Device Identifier Shelf Expiration Date Model / Serial / Lot Cmpnt Ptlr S 31x9mm Tritanium Strl Lf Implanted:Qty: 1 on 02/05/2022 by Jason Vragas DO at [facility] Right: Knee [employer] 01/08/2027 [id number] / / [id number] Bsplt Tib Trthlm 4 Kn Tritanium Implanted:Qty: 1 on 02/05/2022 by Jason Vargas DO at [facility] Right: Knee [employer] 2026 [id number] / / [id number] Cmpnt Fem Kn Rt 3 Crcte Rtn Bead Trthln Implanted:Qty: 1 on 02/05/2022 by Jason Vargas DO at [facility] Right: Knee [employer] 11/21/2026 [id number] / / [id number] Ins Tib 4 9mm Kn X3 Crcte Sub Trthln Implanted:Qty: 1 on 02/05/2022 by Jason Vargas DO at [facility] Right: Knee [employer] 12/02/2026 [id number] / / [id number] Procedures Procedure Name Priority Date/Time Associated Diagnosis Comments DERMATOPATHOLOGY Routine 02/14/2025 9:00 AM FISHERIES DIVER Neoplasm of uncertain behavior of skin GLUCOSE - POINT OF CARE Routine 09/23/19 24 12:31 PM CDT from Last 3 Months or Most Recently Relevant to Health Maintenance Results * DERMATOPATHOLOGY (02/14/2025 9:00 AM FISHERIES DIVER) Case Report Dermatopathology Report Case: [id number] Authorizing Provider: Hilaria Kaur DO Collected: 02/14/2025 09:00 AM Ordering Location: [facility] - Received: 02/18/2025 06:33 AM DermPath Lab Pathologist: Cortez Diaz MD Specimen: Skin, right distal pretibial region 4:10 PM [facility]ERIES [facility] DERMATOPATHOLOGY LABORATORY Final Diagnosis Specimen A. SKIN, right distal pretibial region: LICHEN PLANUS-LIKE KERATOSIS (BENIGN LICHENOID KERATOSIS) (L82.1) 5 4:10 PM [facility] DERMATOPATHOLOGY LABORATORY at 1610 FISHERIES DIVER Clinical History Neoplasm of uncertain behavior vs. Irritated Seborrheic Keratosis vs. SCC vs. BCC 4:10 PM [facility] DERMATOPATHOLOGY LABORATORY Gross Description Specimen A: Received is one formalin filled container labeled with the patient's name and designated right distal pretibial region. The specimen consists of a shave biopsy measuring 9x8x1 mm. Jar 0. 4:10 PM [facility] DERMATOPATHOLOGY LABORATORY Microscopic Description Specimen A. SKIN, right distal pretibial region: The epidermis is mildly acanthotic. There is a lichenoid infiltrate with vacuolar changes of basilar keratinocytes and scattered necrotic keratinocytes. 4:10 PM [facility] DERMATOPATHOLOGY LABORATORY Disclaimer An external and [...] purposes. Billing Codes Specimen Charges Stain Charges 95228 1 4:10 PM [facility] DERMATOPATHOLOGY LABORATORY Embedded Images 5 4:10 PM [facility] DERMATOPATHOLOGY LABORATORY Pathology/Cytolo gy TISSUE SPECIMEN FROM SKIN / Unknown 02/14/2025 9:00 AM FISHERIES DIVER 02/18/2025 6:33 AM FISHERIES DIVER us Hilaria Kaur DO LAB - PATHOLOGY/CYTOLOGY ORDERABLES Final Result DERMATOPATHOLOGY LABORATORY [facility] - Department of Dermatology [address], [address] [phone] * (ABNORMAL) GLUCOSE - POINT OF CARE (09/23/2023 12:31 PM CDT) Glucose WB/POC 225(H) 70 - 115 mg/dL 09/23/2023 12:36 PM CDT [facility] Specimen Type Cap Fingerstick 2023 12:36 PM CDT [facility] Blood BLOOD SPECIMEN / Unknown 09/23/2023 12:31 PM CDT 09/23/2023 12:36 PM CDT us Val Gross MD LAB - POINT OF CARE ORDERABLES Final Result [facility] [address] [place] [address], [facility] [phone] from Last 3 Months or Most Recently Relevant to Health Maintenance Insurance SELF PAY NO INSURANCE Member Subscriber Plan / Payer (Ef fective for All Dates) Name:Kamran Lau Member ID:Not on file Relation to Subscriber:Not on file Name:KAMRAN LAU Subscriber ID:Not on file Address: [address] [place], [place] [address] Payer ID:Not on file Group ID:Not on file Type:Self Pay Address: [facility] MANAGED MEDICARE ADV SELF PAY NO INSURANCE Member Subscriber Plan / Payer (Ef fective for All Dates) Name:Kamran Lau Member ID:Not on file Relation to Subscriber:Not on file Name:KAMRAN LAU Subscriber ID:Not on file Address: [address] [place] [id number] Payer ID:Not on file Group ID:Not on file Type:Self Pay Address: [facility] MANAGED MEDICARE ADV SELF PAY NO INSURANCE Member Subscriber Plan / Payer (Ef fective for All Dates) Name:Jo Ann Laucele Mahoney Member ID:Not on file Relation to Subscriber:Not on file Name:JO ANN LAUILA Subscriber ID:Not on file Address: [address] [place], [place] [address] Payer ID:Not on file Group ID:Not on file Type:Self Pay Address: [facility] MANAGED MEDICARE ADV Advance Directives Documents on File Type Date 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
--- OUTSIDE RECORDS SUMMARY | 2025-03-01 08:05 | XMS_ITS | Encounter Summary ---
Author Organization [facility] Address [address] [place] [address] Care Team Providers Care Credit Director Name Role Phone Jung Regalado MD Primary Care Provider + [phone] Encounter Details Date Type Department Care Team (Late st Contact Info) Description 07/20/2004 Outpatient Historical [facility] ([facility]t Cardiology[facility]) [address] 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
--- NOTE | 2025-03-01 15:08 | WPDPFTINT ---
PFT Procedure Performed PFT Procedure Performed Spirometry with Pre/Post Bronchodilator Plethysmography (Lung Vol) Diffusing Cap (DLCO) Flow Vol Loop PFT Interpretation This is a pulmonary function test with pre and post-bronchodilator spirometry, plethysmography and diffusing capacity. The test was performed and results interpreted in accordance with the 2019 and 2005 ATS/ERS Task Force guidelines respectively using the Global Lung Function Initiative-2012 reference equations. Patient demonstrated good effort and cooperation. Reproducibility criteria were met. The quality of the pre bronchodilator spirometry maneuver was Grade A and post bronchodilator spirometry maneuver was Grade A. Findings: Spirometry: The expiratory flow tracing demonstrates a mid expiratory plateau or knee contour or in 2 of 3 pre bronchodilator maneuvers and a more pronounced knee contour in 1 of 3 post bronchodilator maneuvers. the pre bronchodilator FVC is 2.31 L, 111% predicted. The pre bronchodilator FEV1 is 1.86 L, 116% predicted. The pre bronchodilator FEV1: FVC ratio is 81%. The post bronchodilator FVC is 2.52 L, representing a 9% increase. The post bronchodilator FEV1 is 2.04 L, representing a 10% increase. The post bronchodilator FEV1: FVC ratio is 81%. Plethysmography: The total lung capacity is 3.84 L, 92% predicted. The functional residual capacity is 1.92 L, 73% predicted. The residual volume is 1.48 L, 72% predicted. Diffusing capacity: The diffusing capacity unadjusted for hemoglobin and carboxyhemoglobin is 14.8, 78% predicted. The diffusing capacity adjusted for alveolar volume is 4.12, 96% predicted. Impression: There is a reproducible knee pattern of the expiratory flow tracing which can be a normal variant or pathologic and has been attributed to a choke point section of the bronchial tree. The normal variant is more common in younger female patients, decreases with age and is more pronounced in the post bronchodilator efforts. The pattern has also been described with kyphosis, kyphoscoliosis, central obstructing mass, and post lung transplantation. Otherwise, the spirometry is normal without evidence of an obstructive abnormality. There is no significant improvement after inhaling a single dose of albuterol. The lung volumes are normal. The diffusing capacity is normal. There are no prior studies for comparison
== END 2025-03-01 08:02 | disposition home or self-care (01) ==
PROVIDERS: PCP Student in an Organized Health Care Education/Training Program; Visit Provider Student in an Organized Health Care Education/Training Program
DX: R06.00 Dyspnea, unspecified (principal)
CPT/HCPCS: 94060; 94726; 94729